=== PATIENT | female | born 1960 | race Caucasian/White ===

== ENCOUNTER 2020-12-12 07:23 | Outpatient (REF) | payer OTHER, SELFPAY ==
[2020-12-12 11:17] LABS: MANUAL DIFF FLAG NO
[2020-12-12 11:21] LABS: Basophils Percent Auto 0.3 % (0-2); Eosinophils Absolute Auto 0.1 X10*3/uL (0.0-0.4); Eosinophils Percent Auto 1.2 % (0-4); Hematocrit 32.5 % (37-47); Hemoglobin 8.7 g/dl (12.0-16.0); Imm Gran Abs Auto 0.02 X10*3/uL (0.00-0.03); Imm Gran Pct Auto 0.3 % (0.0-0.4); Lymphocytes Absolute Auto 2.4 X10*3/uL (1.2-4.9); Lymphocytes Percent Auto 33.3 % (20-40); Mean Corpuscular HGB Conc 26.8 g/dl (31.0-35.0); Mean Corpuscular Hemoglobin 19.2 pg (27.0-33.0); Mean Corpuscular Volume 71.9 fL (80-98); Mean Platelet Volume 9.5 fL (9.4-12.3); Monocytes Absolute Auto 0.7 X10*3/uL (0.1-1.2); Monocytes Percent Auto 9.6 % (2-11); Neutrophils Percent Auto 55.3 % (45-73); Platelet Count 357 X10*3/uL (160-400); Red Blood Count 4.52 X10*6/uL (4.20-5.50); Red Cell Distribution Width 19.5 % (11.0-16.0); White Blood Count 7.3 X10*3/uL (4.8-10.8)
[2020-12-12 11:39] LABS: Alanine Aminotransferase 13 U/L (0-31); Aspartate Amino Transferase 19 U/L (5-31); Cholesterol 189 mg/dL; HDL Cholesterol 54 mg/dL; Iron 13 mcg/dL (30-160); LDL Cholesterol Calculated 109 mg/dl; Triglycerides 131 mg/dL
[2020-12-12 11:55] LABS: Percent Iron Saturation 2 % (15-50); Total Iron Binding Capacity 553 mcg/dL (228-428); Unsaturated Iron Binding 540 ug/dL
[2020-12-12 12:01] LABS: Ferritin 11 ng/mL (10-250); Vitamin D 25-OH Total 28.7 ng/mL (>30)
== END 2020-12-12 07:24 | disposition home or self-care (01) ==
LOC: HO.HMGCLDS 07:23
PROVIDERS: PCP Internal Medicine; Visit Provider Internal Medicine
DX: I74.09 Other arterial embolism and thrombosis of abdominal aorta (principal); F10.10 Alcohol abuse, uncomplicated; D12.6 Benign neoplasm of colon, unspecified; K29.50 Unspecified chronic gastritis without bleeding; B96.81 Helicobacter pylori [H. pylori] as the cause of diseases classified elsewhere; M79.7 Fibromyalgia; I73.9 Peripheral vascular disease, unspecified; M81.0 Age-related osteoporosis without current pathological fracture; G25.81 Restless legs syndrome
CPT/HCPCS: 36415; 80061; 82306; 82728; 83540; 84450; 84460; 85025

== ENCOUNTER 2021-02-13 09:55 | Outpatient (REF) | payer OTHER, SELFPAY ==
--- NOTE | ~2021-02-13 | XR_ITS ---
EXAMINATION: 1. RADIOGRAPHS CHEST 2. RADIOGRAPHS RIGHT KNEE CLINICAL INFORMATION: Hemoptysis. Right knee pain after fall. COMPARISON: Chest x-ray February 28, 2019 and low-dose chest CT December 17, 2018 TECHNIQUE: 2 views of the chest and 4 views of the right knee were obtained. FINDINGS: CHEST: Cardiac silhouette is normal in size. Lungs are mildly hyperinflated consistent with emphysematous changes. No left lower lobe pulmonary nodule appears to demonstrate mild interval increase in size, today measuring 1.2 cm (previously 1 cm). There has also been interval development of irregularly shaped masslike opacity within the right lung apex which measures approximately 1.2 x 1.8 cm. No gross lobar consolidation identified. No pleural effusion or pneumothorax. Mild degenerative changes of the thoracic spine. Right knee: No fracture or dislocation. Tiny suprapatellar joint effusion. Mildly decreased medial joint space height. No focal soft tissue swelling of the anterior knee. Vascular calcifications noted. XR/XR chest 2V IMPRESSION: 1. Interval development of 1.8 cm irregularly-shaped masslike opacity within the right lung apex. In a setting of hemoptysis and known pulmonary nodules, this finding is concerning for a neoplastic process. This may also represent a localized infectious or inflammatory process. Further evaluation can be obtained with chest CT. 2. Mild degenerative changes of the right knee.
--- NOTE | ~2021-02-13 | XR_ITS ---
EXAMINATION: 1. RADIOGRAPHS CHEST 2. RADIOGRAPHS RIGHT KNEE CLINICAL INFORMATION: Hemoptysis. Right knee pain after fall. COMPARISON: Chest x-ray February 28, 2019 and low-dose chest CT December 17, 2018 TECHNIQUE: 2 views of the chest and 4 views of the right knee were obtained. FINDINGS: CHEST: Cardiac silhouette is normal in size. Lungs are mildly hyperinflated consistent with emphysematous changes. No left lower lobe pulmonary nodule appears to demonstrate mild interval increase in size, today measuring 1.2 cm (previously 1 cm). There has also been interval development of irregularly shaped masslike opacity within the right lung apex which measures approximately 1.2 x 1.8 cm. No gross lobar consolidation identified. No pleural effusion or pneumothorax. Mild degenerative changes of the thoracic spine. Right knee: No fracture or dislocation. Tiny suprapatellar joint effusion. Mildly decreased medial joint space height. No focal soft tissue swelling of the anterior knee. Vascular calcifications noted. XR/XR knee RT 4V IMPRESSION: 1. Interval development of 1.8 cm irregularly-shaped masslike opacity within the right lung apex. In a setting of hemoptysis and known pulmonary nodules, this finding is concerning for a neoplastic process. This may also represent a localized infectious or inflammatory process. Further evaluation can be obtained with chest CT. 2. Mild degenerative changes of the right knee.
== END 2021-02-13 09:56 | disposition home or self-care (01) ==
LOC: HO.HMGCX 09:55
PROVIDERS: PCP Internal Medicine; Visit Provider Physician Assistant Medical
DX: M25.461 Effusion, right knee (principal); R04.2 Hemoptysis; Z91.81 History of falling
CPT/HCPCS: 71046; 73564

== ENCOUNTER 2021-02-27 07:54 | Outpatient (REF) | payer OTHER, SELFPAY ==
[2021-02-27 11:29] LABS: MANUAL DIFF FLAG NO
[2021-02-27 11:51] LABS: Basophils Percent Auto 0.4 % (0-2); Eosinophils Absolute Auto 0.2 X10*3/uL (0.0-0.4); Hemoglobin 9.2 g/dl (12.0-16.0); Imm Gran Abs Auto 0.02 X10*3/uL (0.00-0.03); Imm Gran Pct Auto 0.3 % (0.0-0.4); Lymphocytes Absolute Auto 2.7 X10*3/uL (1.2-4.9); Lymphocytes Percent Auto 35.4 % (20-40); Mean Corpuscular HGB Conc 27.9 g/dl (31.0-35.0); Mean Corpuscular Hemoglobin 19.9 pg (27.0-33.0); Mean Corpuscular Volume 71.3 fL (80-98); Mean Platelet Volume 9.1 fL (9.4-12.3); Monocytes Absolute Auto 0.7 X10*3/uL (0.1-1.2); Neutrophils Percent Auto 52.9 % (45-73); Platelet Count 410 X10*3/uL (160-400); Red Blood Count 4.63 X10*6/uL (4.20-5.50); Red Cell Distribution Width 22.2 % (11.0-16.0); White Blood Count 7.6 X10*3/uL (4.8-10.8)
[2021-02-27 11:57] LABS: INTERNATIONAL NORM RATIO 0.9 (0.9-1.1); Prothrombin Time 10.3 SEC (9.9-13.0)
[2021-02-27 11:59] LABS: Anion Gap 14 (12-20); Blood Urea Nitrogen 10 mg/dL (9-16); Calcium 9.3 mg/dL (8.4-10.2); Carbon Dioxide 24 mmol/L (22-29); Chloride 105 mmol/L (96-108); Estimated Glomerular Filt Rate > 60; Glucose Random 91 mg/dL (60-115); Potassium 4.7 mmol/L (3.3-5.1); Sodium 138 mmol/L (135-145)
[2021-02-27 12:01] LABS: D Dimer 490 NG/ML
[2021-02-27 12:09] LABS: B Type Natriuretic Peptide 86 pg/mL (<100)
== END 2021-02-27 07:55 | disposition home or self-care (01) ==
LOC: HO.HMGCLDS 07:54
PROVIDERS: PCP Internal Medicine; Visit Provider Physician Assistant Medical
DX: R04.2 Hemoptysis (principal)
CPT/HCPCS: 36415; 80048; 83880; 85025; 85379; 85610

== ENCOUNTER 2021-03-01 | Outpatient (REF) | payer OTHER, SELFPAY | END 2021-03-01 00:01 | disposition home or self-care (01) | LOC: HO.HMGCLNP | PROVIDERS: Visit Provider Physician Assistant Medical | DX: R04.2 Hemoptysis (principal) | CPT/HCPCS: 87070; 87185; 87205 ==

== ENCOUNTER 2021-03-02 09:22 | Outpatient (REF) | payer OTHER, SELFPAY ==
--- NOTE | ~2021-03-02 | CT_ITS ---
EXAMINATION: CT CHEST WITHOUT CONTRAST CLINICAL INFORMATION: Hemoptysis COMPARISON: Previous chest x-ray most recent 02/23/[address] December 2018 TECHNIQUE: Multidetector volumetric CT imaging of the chest was done. Axial MIP volume rendering provided. Sagittal and coronal reformatted images were obtained. This CT examination was performed using dose optimization techniques as appropriate, variously including the following: *Automated exposure control *Adjustment of mA and/or kV according to patient size (this includes techniques or standardized protocols for targeted exams where dose is matched to indication/reason for exam; i.e. extremities or head) *Use of iterative reconstruction technique DLP: 145 mGy-cm FINDINGS: LUNGS: There is evidence of severe emphysema. There is a new irregular triangular shaped lesion in the right upper lobe with several spicules. This is low in attenuation and has central calcified. This measures 1.5 x 3.5 cm in AP and transverse dimension. There are spicules that extends to the lateral right lung apex and there is adjacent thickening. This lesion is new from 2018 exam. There is a new 5 mm groundglass attenuation right lower lobe nodule axial image 335 series 4. There is more ill-defined peribronchial increased attenuation in the lingula for example axial image 301 series 4. There is a 5 mm irregularly-shaped left upper lobe nodule axial image 227 series 4 that is new. There is a 9 x 10 mm left lower lobe nodule axial image 311 series 4 that is stable. There is a 4 mm right lower lobe nodule axial image 240 series 4. There is a 4 mm left upper lobe nodule axial image 251 series 4. There is a 3 mm peripheral or subpleural left lower lobe nodule adjacent to the fissure axial image 321 series 4. There is a 4 mm peripheral or subpleural left lower lobe nodule axial image 361 series 4. There is a 1.1 x 1.9 cm peripheral or subpleural left lower lobe nodule adjacent to the lower thoracic spine axial image 397 series 4. On sagittal and coronal reconstructed images this may represent atelectasis. There is a 3 mm calcified right upper lobe nodule axial image 113 series 4. These nodules are similar to most recent exam December 2018. MEDIASTINUM: The heart does not appear enlarged. There is moderate coronary artery calcification. There is no pericardial effusion. There are small mediastinal lymph nodes. The thoracic aorta is normal in caliber. PLEURA: There is no pleural effusion. No pleural mass or thickening. AXILLA: No lymphadenopathy. UPPER ABDOMEN: There are vascular calcifications seen in the abdomen. There is a 4 mm calcification in the upper pole of the left kidney questionable for vascular calcification versus stone. OSSEOUS STRUCTURES: There is increased thoracic kyphosis. There is an L3 to [place] body compression fracture and probable Schmorl's node that appears new. CT/CT chest wo con IMPRESSION: Emphysema. New irregularly-shaped partially calcified lesion in the right upper lobe with central calcifications measuring 1.5 x 3.5 cm. There is a new 5 mm groundglass attenuation right lower lobe nodule.. Previously identified pulmonary nodules are otherwise stable, largest measuring 1 x 1.1 cm and 1.1 x 1.9 cm in the left lower lobe. Coronary artery calcification. New L3 vertebral body compression fracture.
== END 2021-03-02 09:23 | disposition home or self-care (01) ==
LOC: HO.CT 09:22
PROVIDERS: PCP Internal Medicine; Visit Provider Surgery
DX: R04.2 Hemoptysis (principal); F17.200 Nicotine dependence, unspecified, uncomplicated
CPT/HCPCS: 71250

== ENCOUNTER → 2021-03-12 10:34 | Outpatient (BNVA) | payer OTHER, SELFPAY | PROVIDERS: PCP Internal Medicine; Visit Provider Surgery | DX: R91.8 Other nonspecific abnormal finding of lung field (principal); R04.2 Hemoptysis; J43.9 Emphysema, unspecified; F17.210 Nicotine dependence, cigarettes, uncomplicated; Z79.899 Other long term (current) drug therapy; Z71.6 Tobacco abuse counseling | CPT/HCPCS: 99212 ==

== ENCOUNTER 2021-04-06 11:25 | Outpatient (REF) | payer OTHER, SELFPAY ==
--- NOTE | ~2021-04-06 | PE_ITS ---
EXAMINATION: Fluorine-18 FDG PET/CT Scan CLINICAL INDICATION: Initial treatment management. Pulmonary nodules. PROCEDURE: 59 minutes following the intravenous administration of 17.3 mCi of fluorine 18 FDG, images from the base of the skull to the mid thighs were obtained using a combined PET/CT scanner with CT scan based attenuation correction. No oral contrast was administered. No intravenous contrast was administered. Transverse, coronal, sagittal, and volume reconstruction projections were obtained. The patient's blood glucose as determined by a finger stick, was 106 mg/dl immediately prior to injection. Total CT exam dose-length product 248.61 mGy-cm * These CT images were obtained using dose optimization techniques as appropriate, variously including the following: Automated exposure control * Adjustment of mA and/or kV according to patient size (this includes techniques or standardized protocols for targeted exams where dose is matched to indication/reason for exam; i.e. extremities or head) * Use of iterative reconstruction technique COMPARISON: No previous PET/CT scan is available for comparison. CT scan of the chest dated 03/02/2021 is available for comparison. FINDINGS: (Slice numbers described in this report are numbered superiorly to inferiorly with slice #1 in the head) NECK AND VISUALIZED HEAD: There are several foci of increased FDG activity in the left cervical region which appear to be in the soft tissues with no corresponding CT abnormalities that may represent some physiological muscular uptake. There is an additional mild focus of FDG activity anterior to the right trapezius muscle that also shows no corresponding CT abnormality. There is no definite cervical lymphadenopathy. No other foci of abnormal FDG activity are suggested in the neck or visualized head. THORAX: An FDG avid right upper lobe pulmonary nodule is noted, SUVmax 3.5, slice 45/223. This corresponds to a spiculated very irregular nodule on the CT images it measures approximately 2.3 x 1.4 cm with linear spiculation extending posteromedially several additional centimeters. It is unchanged from the diagnostic CT dated 03/02/2021. Fine spiculations also extend laterally and anterolaterally to the right upper lobe pleura. No additional foci of abnormal FDG activity are present in the lungs. There is a 1.1 x 0.7 cm posterior left lower lobe nodule, slice 78/223 with no associated abnormal FDG activity. No definite additional pulmonary nodules are visualized. Multiple additional subcentimeter nodules visualized on the [address] scan are not apparent on these nondiagnostic CT images. No additional foci of abnormal FDG activity are present in the chest. There is no mediastinal, supraclavicular, or axillary lymphadenopathy. ABDOMEN AND PELVIS: No foci of abnormal FDG activity are present in the abdomen and or pelvis. There is FDG activity of varying intensities present throughout the gastrointestinal tract, most intensely in the right colon and rectosigmoid colon, but without corresponding CT abnormalities and likely physiological. There is diffuse diverticulosis without evidence of diverticulitis. The hollow viscera are otherwise unremarkable. The liver, gallbladder, and spleen are unremarkable. There is a densely calcified 0.5 cm calculus in the upper pole of the right kidney. The kidneys are otherwise unremarkable. The adrenal glands and pancreas are unremarkable. There is no retroperitoneal, mesenteric, pelvic or inguinal lymphadenopathy. The pelvic organs are unremarkable. MUSCULOSKELETAL: No foci of abnormal FDG activity are present in the osseous structures. There are mild degenerative changes in the spine and there is compression deformity in the superior endplate of L4 with no associated abnormal FDG activity. VASCULAR: Diffuse vascular calcifications including coronary. PET/PET CT fusion skull to thigh IMPRESSION: 1. An FDG avid right upper lobe pulmonary nodule is most likely malignant. Biopsy is recommended if clinically indicated. 2. An additional left lower lobe 1.1 x 0.7 cm pulmonary nodule does not show abnormal FDG activity suggesting a benign etiology, but this is at the lower limits of resolution on the FDG PET images. 3. Multiple additional small subcentimeter pulmonary nodules visualized on the 03/02/2021 CT scan are not visualized on these nondiagnostic CT images, but all of these are too small to be characterized on the FDG PET images. 4. Several FDG avid soft tissue foci in the cervical region, most prominently on the left are noted as described above. These show no corresponding CT abnormalities and may be due to physiological muscular uptake but significant malignant or inflammatory foci at these sites cannot be ruled out. These foci could be further characterized with MRI of the neck performed without and with intravenous contrast. 5. No additional abnormalities suspicious for other metastatic or malignant lesions are noted. 6. Diffuse vascular calcifications including coronary.
== END 2021-04-06 11:26 | disposition home or self-care (01) ==
LOC: HO.PET 11:25
PROVIDERS: PCP Internal Medicine; Visit Provider Surgery
DX: Z13.89 Encounter for screening for other disorder (principal)

== ENCOUNTER → 2021-04-09 09:57 | Outpatient (BNVA) | payer OTHER, SELFPAY | PROVIDERS: PCP Internal Medicine; Visit Provider Surgery | DX: R91.8 Other nonspecific abnormal finding of lung field (principal); F17.210 Nicotine dependence, cigarettes, uncomplicated; Z79.899 Other long term (current) drug therapy; R04.2 Hemoptysis | CPT/HCPCS: 99212 ==

== ENCOUNTER 2021-04-29 11:01 | Day surgery (SDC) | payer OTHER, SELFPAY ==
[2021-04-29] VITALS (9 sets, daily range): BP systolic 105–167; BP diastolic 51–77; PULSE 71–92; RESP 16–20; TEMP 36.4; O2SAT 95–98; BMI 17.7
--- NOTE | ~2021-04-29 | CT_ITS ---
PROCEDURE: CT GUIDED BIOPSY LUNG, RIGHT CLINICAL INFORMATION: PET positive right upper lobe spiculated mass. COMPARISON: 04/06/2021 and 03/02/2021 TECHNIQUE: CT fluoroscopic-guided biopsy right upper lobe. This CT examination was performed using dose optimization techniques as appropriate, variously including the following: *Automated exposure control *Adjustment of mA and/or kV according to patient size (this includes techniques or standardized protocols for targeted exams where dose is matched to indication/reason for exam; i.e. extremities or head) *Use of iterative reconstruction technique DLP: 72 mGy-cm FINDINGS: Informed consent was obtained from the patient prior to the procedure. During this process, the procedure and potential alternatives were explained, along with the intended outcome and benefits. The risks of the procedure, as well as the risk of not doing the procedure, were discussed. The patient was given the opportunity to ask questions regarding the procedure and appeared competent to make medical decisions. A signed consent form which documents this discussion was placed in the medical record. There is noted to be severe emphysematous change throughout both lungs. Using sterile technique and CT fluoroscopic guidance, from an anterior approach, a coaxial needle was placed into the mass, and two 18-gauge core biopsies obtained. No immediate postprocedure pneumothorax is present. Preliminary cytology was of an adequate specimen. CT/CT biopsy lung RT IMPRESSION: Successful right upper lobe core biopsy with no immediate postprocedure pneumothorax.
[2021-04-29 11:17] LABS: MANUAL DIFF FLAG NO
[2021-04-29 11:21] LABS: Basophils Percent Auto 0.4 % (0-2); Eosinophils Absolute Auto 0.1 X10*3/uL (0.0-0.4); Eosinophils Percent Auto 0.7 % (0-4); Hematocrit 29.9 % (37-47); Hemoglobin 8.4 g/dl (12.0-16.0); Imm Gran Abs Auto 0.03 X10*3/uL (0.00-0.03); Imm Gran Pct Auto 0.4 % (0.0-0.4); Lymphocytes Absolute Auto 1.9 X10*3/uL (1.2-4.9); Lymphocytes Percent Auto 26.3 % (20-40); Mean Corpuscular HGB Conc 28.1 g/dl (31.0-35.0); Mean Corpuscular Hemoglobin 19.1 pg (27.0-33.0); Mean Platelet Volume 8.6 fL (9.4-12.3); Monocytes Absolute Auto 0.6 X10*3/uL (0.1-1.2); Monocytes Percent Auto 7.7 % (2-11); Neutrophils Absolute Auto 4.7 X10*3/uL (2.0-8.3); Neutrophils Percent Auto 64.5 % (45-73); Platelet Count 306 X10*3/uL (160-400); White Blood Count 7.3 X10*3/uL (4.8-10.8)
[2021-04-29 11:27] LABS: Prothrombin Time 11.4 SEC (9.9-13.0)
[2021-04-29 11:30] LABS: Partial Thromboplastin Time 32.4 SEC (24.1-38.0)
== END 2021-04-29 17:40 | disposition home or self-care (01) ==
LOC: HO.SSS 11:02
PROVIDERS: Radiology Diagnostic Radiology; PCP Internal Medicine; Visit Provider Radiology Diagnostic Radiology
DX: J84.10 Pulmonary fibrosis, unspecified (principal)
CPT/HCPCS: 32408; 36415; 71045; 85025; 85610; 85730; 88305; 88333; 99152; 99153; C1729; J2250; J3010

== ENCOUNTER → 2021-05-21 09:59 | Outpatient (BNVA) | payer OTHER, SELFPAY | PROVIDERS: PCP Internal Medicine; Visit Provider Surgery | DX: J43.9 Emphysema, unspecified (principal); R91.8 Other nonspecific abnormal finding of lung field; F17.210 Nicotine dependence, cigarettes, uncomplicated; Z79.899 Other long term (current) drug therapy; Z71.6 Tobacco abuse counseling | CPT/HCPCS: 99212 ==

== ENCOUNTER 2021-05-25 08:36 | Outpatient (REF) | payer OTHER, SELFPAY ==
--- NOTE | ~2021-05-25 | MR_ITS ---
EXAMINATION: MRI NECK WITHOUT AND WITH CONTRAST CLINICAL INFORMATION: Other nonspecific abnormal finding of the lung fu. COMPARISON: Head CT 04/06/2021. TECHNIQUE: The planar multisequence MRI of the neck was performed without and with contrast. A total 4.5 mL Gadavist was intravenously administered. The diffusion sequence is nondiagnostic. FINDINGS: The pharyngeal contours appear normal. The tonsils and base of tongue appear normal and symmetric. No laryngeal lesion is seen. The parotid and submandibular glands appear normal. No enlarged or suspicious appearing cervical lymph nodes are seen. No abnormal enhancement is seen. The imaged intracranial contents appear normal. The major arterial flow voids are preserved at the skull base. No significant paranasal sinus or mastoid opacification is seen. Degenerative changes are present in the spine. No vertebral body height loss is noted. The known right apical lung lesion is better defined on the prior chest CT. MR/MR orbits face neck wo/w con IMPRESSION: No suspicious abnormality is identified within the neck. No evidence of neck mass or lymphadenopathy.
== END 2021-05-25 08:37 | disposition home or self-care (01) ==
LOC: HO.MRI 08:36
PROVIDERS: Visit Provider Surgery
DX: R91.8 Other nonspecific abnormal finding of lung field (principal); R93.89 Abnormal findings on diagnostic imaging of other specified body structures
CPT/HCPCS: 70543; A9585

== ENCOUNTER 2021-07-16 13:42 | Outpatient (REF) | payer OTHER, SELFPAY ==
--- NOTE | ~2021-07-16 | XR_ITS ---
EXAMINATION: XR TIBIA AND FIBULA, RIGHT CLINICAL INFORMATION: S80.11XA - Contusion of right lower leg, initial encounter COMPARISON: None TECHNIQUE: AP and lateral views of the right tibia and fibula were obtained. FINDINGS: There is no visible fracture or periostitis or destructive process. Hoffa's fat pad appears normal. There is no gas tracking in the soft tissue planes. XR/XR tibia fibula RT 2V IMPRESSION: No fracture or, dislocation, or destructive process.
== END 2021-07-16 13:43 | disposition home or self-care (01) ==
LOC: HO.HMGCX 13:42
PROVIDERS: PCP Internal Medicine; Visit Provider Internal Medicine
DX: S80.11XA Contusion of right lower leg, initial encounter (principal); X58.XXXA Exposure to other specified factors, initial encounter; Y93.9 Activity, unspecified; Y92.9 Unspecified place or not applicable; Y99.9 Unspecified external cause status
CPT/HCPCS: 73590

== ENCOUNTER 2021-07-19 10:03 | Inpatient (IN) | payer OTHER, SELFPAY ==
[2021-07-19] VITALS (12 sets, daily range): BP systolic 123–180; BP diastolic 47–91; PULSE 74–103; RESP 16–95; TEMP 36.6–37.2; O2SAT 97–98; BMI 17.9
--- NOTE | ~2021-07-19 | CT_ITS ---
EXAMINATION: CT HEAD WITHOUT CONTRAST CLINICAL INFORMATION: Right arm numbness COMPARISON: None TECHNIQUE: Contiguous axial imaging was performed from the skull base to vertex without intravenous administration of contrast. Additional 2-D coronal and sagittal reformatted images are generated on the CT workstation and uploaded to PACS. This CT examination was performed using dose optimization techniques as appropriate, variously including the following: *Automated exposure control *Adjustment of mA and/or kV according to patient size (this includes techniques or standardized protocols for targeted exams where dose is matched to indication/reason for exam; i.e. extremities or head) *Use of iterative reconstruction technique DLP: 492 mGy-cm FINDINGS: There is no intracranial hemorrhage, hematoma, or extra-axial fluid collection. The ventricles are normal in size. There is no hydrocephalus, edema, or mass effect. The tolliver-white matter differentiation appears well preserved . There are mild atrophic changes with accentuation of the cortical sulci and fissures. Incidental mild mineralization is present in the choroid plexus invasive lateral ventricles and choroid fissures. There is no visible acute territorial infarct or mass lesion. The calvarium appears intact. There is no pneumocephalus or orbital emphysema. The visualized sinuses and middle ears and mastoid air cells show no significant mucosal thickening. There are no air-fluid levels. CT/CT head/brain wo con IMPRESSION: No acute intracranial abnormality.
--- NOTE | ~2021-07-19 | XR_ITS ---
EXAMINATION: XR CHEST CLINICAL INFORMATION: Chest pain. COMPARISON: CT chest 03/02/2021 TECHNIQUE: Frontal view of the chest was obtained. FINDINGS: Hyperinflated lungs without acute process. The there is a right upper lobe patchy density suggestive of a large scar seen on CT chest 03/02/2021. There is mild 8 apical pleural thickening Heart size and pulmonary vascularity is normal. No gross bony abnormality. XR/XR chest 1V IMPRESSION: Right upper lobe thick scar/mass seen on CT chest exam 03/02/2021. This area has been biopsied previously 05/03/2021 No acute process.
--- NOTE | 2021-07-19 10:19 | ECG_ITS ---
Test Reason : SHORTNESS OF BREATH Blood Pressure : / mmHG Vent. Rate : 081 BPM Atrial Rate : 081 BPM P-R Int : 106 ms QRS Dur : 068 ms QT Int : 350 ms P-R-T Axes : 081 068 077 degrees QTc Int : 406 ms Sinus rhythm with short HI Nonspecific ST abnormality Abnormal ECG When compared with ECG of 28-FEB-2019 16:13, No significant change was found Referred By: Emeterio Bucio Electronically Signed By:Harry Estrada
--- NOTE | 2021-07-19 10:22 | ED_ITS ---
HPI - SOB/Dyspnea General Chief Complaint: Dyspnea Stated Complaint: r arm numbness/ lower leg edema Time Seen by Provider: 07/19/21 10:19 Source: patient Mode of arrival: ambulatory Limitations: no limitations History of Present Illness HPI Narrative: 61 yo called 911 because SOB ,she has hx of COPD 02 dept still s mo,she was given neb by EMS now better,she sates that she runned out on inhaler,she also had transient episode of rt arm numbnesss now resolved MD elicited complaint: shortness of breath Pertinent past history: COPD Onset (ago): hour(s) (2) Timing: improved Severity: moderate Exacerbating factors: nothing Relieving factors: medication (neb) Known history of: COPD Treatment prior to arrival: bronchodilator (by EMS) Related Data Home Medications Medication Instructions Recorded Confirmed clopidogrel 75 mg tablet 75 mg PO DAILY 11/03/20 05/21/21 Previous Rx's Medication Instructions Recorded aspirin 81 mg chewable tablet 1 tab PO DAILY #30 tab 06/22/20 albuterol sulfate 90 mcg/actuation 1 - 2 puff INHALATION Q4-6H PRN 11/13/20 aerosol inhaler #8.5 g cholecalciferol (vitamin D3) 125 125 mcg PO DAILY #30 cap 12/14/20 mcg (5,000 unit) capsule lisinopril 10 mg tablet 5 mg PO DAILY #15 tab 12/16/20 amlodipine 10 mg tablet 10 mg PO QPM #90 tab 02/04/21 ferrous fumarate 324 mg (106 mg 324 mg PO DAILY #30 tab 03/03/21 iron) tablet (Ferrocite) triamcinolone acetonide 0.025 % 1 appl TOPICAL DAILY 10 Days #15 g 03/31/21 topical cream lorazepam 1 mg tablet (Ativan) 1 mg PO ONCE PRN #1 tab 04/09/21 ibuprofen 600 mg tablet 600 mg PO DAILY PRN #20 tab 04/27/21 ropinirole 0.5 mg tablet 0.5 mg PO DAILY #30 tab 05/06/21 budesonide-formoterol HFA 160 2 puff PO BID 30 Days #10.2 g 05/27/21 mcg-4.5 mcg/actuation aerosol inhaler (Symbicort) naproxen 500 mg tablet 500 mg PO BID #20 tab 07/05/21 Allergies Allergy/AdvReac Type Severity Reaction Status Date / Time acetaminophen [From Tylenol] Allergy Mild Nausea Verified 07/16/21 13:19 Review of Systems Review of Systems: Yes all other systems are reviewed and are negative Constitutional: Constitutional: Denies chills, Denies fever(s) and Denies headache(s) ENT: Reports system reviewed and no additional complaints, except as documented and Denies headache(s) Cardiovascular: Cardiovascular: Denies chest pain, Denies chest pain at rest, Denies chest pain with activity and Reports dyspnea Respiratory: Respiratory: Reports dyspnea Gastrointestinal: Gastrointestinal: Reports no additional gastrointestinal complaints Neurologic: Reports as per HPI (rt arm numbness now resolved,no weakness) and Denies headache(s) [facility] Past Medical History Medical History Anemia Aortoiliac occlusive disease Chronic Helicobacter pylori gastritis Colonoscopy refused COPD (chronic obstructive pulmonary disease) Fibromyalgia History of alcohol abuse Mammogram declined Myopia of both eyes Osteoporosis Papanicolaou smear declined Peripheral vascular disease Restless leg syndrome Smoker unmotivated to quit Tubular adenoma of colon Vaccination declined by patient Surgical History History of ankle surgery (~11/2011) History of appendectomy History of endarterectomy (~05/2020) History of exploratory thoracotomy (~04/2018) History of lung biopsy (~04/2021) History of myringotomy History of tonsillectomy History of tubal ligation Family History Family History Father Substance use disorder Mother Substance use disorder Brother Substance use disorder Sister Substance use disorder Sister Substance use disorder Brother Substance use disorder Social History Social History Housing: Other Housing Other:: mobile home Alcohol intake: former Patient Tobacco Use Status: Current everyday Tobacco user Cigarettes Per Day: 10 e-Cigarette/Vaping Use: Never Used Use of substances other than those prescribed or required for medical reasons: No Advance Directives: Yes Advance Directives on File: Yes Advance Directives Date on File: 07/19/21 service: No Current occupational status: disabled Current occupational exposures/hazards: No Physical Exam Vital Signs: Vital Signs: Last Vital Signs Temp 97.9 F 07/19/21 10:35 Pulse 81 07/19/21 10:35 Resp 16 07/19/21 10:35 BP 153/56 H 07/19/21 10:35 Pulse Ox 98 07/19/21 10:35 BMI result Body Mass Index 17.9 Const: General: cooperative, comfortable, no acute distress, well developed and alert Nutritional Appearance: average body habitus Limitations: no limitations HENMT: Face and sinus: Yes normal facial exam Mouth: Normal oral and palatal mucosa present Neck: Neck: Yes normal visual inspection, Yes full ROM and Yes no lymphadenop athy Chest: Chest palpation & inspection: normal inspection of the chest Resp: Auscultation: rhonchi Cardio: Jugular venous distension: no JVD Rate: regular rate Rhythm: regular rhythm GI: Inspection: Yes normal to inspection Palpation (GI): Soft to palpation, not firm, nontender and no guarding Percussion: Yes normal to percussion Rectal Exam - Female: normal sphincter tone and other (Stools brown heme negative stools) Skin: General skin exam: no rashes or lesions noted and elasticity normal Course Reevaluation(s) Reevaluation #1: blood transfusion ordered ,spoke with Hospitalist MDM - SOB/Dyspnea MDM Narrative Medical decision making narrative: pp presented with severe anemia heme negative stools ,she is actually hypertensive ,most likely chronic anemia low MCV/MCH/MCHC .Will admit and trasfuse Lab Data Result diagrams: 07/19/21 10:57 07/19/21 10:57 Labs: Lab Results 07/19/21 07/19/21 07/19/21 Range/Units 10:57 10:57 10:57 WBC 8.1 (4.8-10.8) X10*3/uL RBC 2.87 L (4.20-5.50) X10*6/uL Hgb 4.8 L* (12.0-16.0) g/dl Hct 18.6 L* (37.0-47.0) % MCV 64.8 L (80.0-98.0) fL MCH 16.7 L (27.0-33.0) pg MCHC 25.8 L (31.0-35.0) g/dl RDW 20.1 H (11.0-16.0) % Plt Count 322 (160-400) X10*3/uL MPV 9.5 (9.4-12.3) fL Immature Gran % (Auto) 0.4 (0.0-0.4) % Neut % (Auto) 68.2 (45-73) % Lymph % (Auto) 21.6 (20-40) % [place] % (Auto) 7.7 (2-11) % Eos % (Auto) 1.7 (0-4) % Baso % (Auto) 0.4 (0-2) % Lymph # (Auto) 1.8 (1.2-4.9) X10*3/uL [place] # (Auto) 0.6 (0.1-1.2) X10*3/uL Eos # (Auto) 0.1 (0.0-0.4) X10*3/uL Baso # (Auto) 0.0 (0.0-0.2) X10*3/uL Abs Immat Gran (auto) 0.03 (0.00-0.03) X10*3/uL Absolute Neuts (auto) 5.5 (2.0-8.3) x10*3/uL Absolute Nucleated RBC 0.000 (0.0-0.012) X10*3/uL Nucleated RBC % (auto) 0.0 (0.0-0.2) /100WBC PT 11.0 (9.9-13.0) SEC INR 1.0 (0.9-1.1) Sodium 137 (135-145) mmol/L Potassium 4.7 (3.3-5.1) mmol/L Chloride 108 (96-108) mmol/L Carbon Dioxide 20 L (22-29) mmol/L Anion Gap 14 (12-20) BUN 11 (9-16) mg/dL Creatinine 0.61 (0.5-1.4) mg/dL Estim Creat Clear Calc 67.4 Estimated GFR > 60 Random Glucose 97 (60-115) mg/dL Calcium 9.1 (8.4-10.2) mg/dL Total Bilirubin 0.3 (0.0-1.0) mg/dL AST 13 (5-31) U/L ALT 10 (0-31) U/L Alkaline Phosphatase 105 (39-117) U/L Troponin I High Sens (<3.5-17.0) ng/L B-Natriuretic Peptide (<100) pg/mL Total Protein 6.3 L (6.5-8.0) g/dL Albumin 3.9 (3.5-5.0) g/dL Stool Occult Blood (NEGATIVE) 07/19/21 07/19/21 07/19/21 Range/Units 10:57 10:57 11:23 WBC (4.8-10.8) X10*3/uL RBC (4.20-5.50) X10*6/uL Hgb (12.0-16.0) g/dl Hct (37.0-47.0) % MCV (80.0-98.0) fL MCH (27.0-33.0) pg MCHC (31.0-35.0) g/dl RDW (11.0-16.0) % Plt Count (160-400) X10*3/uL MPV (9.4-12.3) fL Immature Gran % (Auto) (0.0-0.4) % Neut % (Auto) (45-73) % Lymph % (Auto) (20-40) % [place] % (Auto) (2-11) % Eos % (Auto) (0-4) % Baso % (Auto) (0-2) % Lymph # (Auto) (1.2-4.9) X10*3/uL [place] # (Auto) (0.1-1.2) X10*3/uL Eos # (Auto) (0.0-0.4) X10*3/uL Baso # (Auto) (0.0-0.2) X10*3/uL Abs Immat Gran (auto) (0.00-0.03) X10*3/uL Absolute Neuts (auto) (2.0-8.3) x10*3/uL Absolute Nucleated RBC (0.0-0.012) X10*3/uL Nucleated RBC % (auto) (0.0-0.2) /100WBC PT (9.9-13.0) SEC INR (0.9-1.1) Sodium (135-145) mmol/L Potassium (3.3-5.1) mmol/L Chloride (96-108) mmol/L Carbon Dioxide (22-29) mmol/L Anion Gap (12-20) BUN (9-16) mg/dL Creatinine (0.5-1.4) mg/dL Estim Creat Clear Calc Estimated GFR Random Glucose (60-115) mg/dL Calcium (8.4-10.2) mg/dL Total Bilirubin (0.0-1.0) mg/dL AST (5-31) U/L ALT (0-31) U/L Alkaline Phosphatase (39-117) U/L Troponin I High Sens 5.1 (<3.5-17.0) ng/L B-Natriuretic Peptide 277 H (<100) pg/mL Total Protein (6.5-8.0) g/dL Albumin (3.5-5.0) g/dL Stool Occult Blood NEGATIVE (NEGATIVE) ECG Data ECG interpretation date: 07/19/21 ECG interpretation time: 10:34 Pacemaker model: NSR [address] t segment isoelectric Critical Care Time Critical Care Time Critical Care Time: Yes Total Critical Care Time: 60 Attestation: Blood trasfusion X 2 for severe anemia,speaking with ALS,taking care of pt Discharge Plan Discharge Clinical Impression: Severe anemia, Shortness of breath Prescriptions: No Action aspirin 81 mg tablet,chewable 1 tab PO DAILY Qty: 30 RF: 6 albuterol sulfate 90 mcg/actuation HFA aerosol inhaler 1 - 2 puff inhalation Q4-6H PRN (Reason: dyspnea) Qty: 8.5 RF: 2 cholecalciferol (vitamin D3) 125 mcg (5,000 unit) capsule 125 mcg PO DAILY Qty: 30 RF: 4 lisinopril 10 mg tablet 5 mg PO DAILY Qty: 15 RF: 5 amlodipine 10 mg tablet 10 mg PO QPM Qty: 90 RF: 3 ferrous fumarate [Ferrocite] 324 mg (106 mg iron) tablet 324 mg PO DAILY Qty: 30 RF: 1 ibuprofen 600 mg tablet 600 mg PO DAILY PRN (Reason: migraine headache) Qty: 20 RF: 0 ropinirole 0.5 mg tablet 0.5 mg PO DAILY Qty: 30 RF: 3 budesonide-formoterol [Symbicort] 160-4.5 mcg/actuation HFA aerosol inhaler 2 puff PO BID 30 Days Qty: 10.2 RF: 2 clopidogrel 75 mg tablet 75 mg PO DAILY RF: 0 triamcinolone acetonide 0.025 % cream 1 appl topical DAILY 10 Days Qty: 15 RF: 0 naproxen 500 mg tablet 500 mg PO BID Qty: 20 RF: 0 lorazepam [Ativan] 1 mg tablet 1 mg PO ONCE PRN (Reason: anxiety) Qty: 1 RF: 0
[2021-07-19 11:03] LABS: MANUAL DIFF FLAG NO
[2021-07-19 11:04] LABS: Basophils Percent Auto 0.4 % (0-2); Eosinophils Absolute Auto 0.1 X10*3/uL (0.0-0.4); Eosinophils Percent Auto 1.7 % (0-4); Imm Gran Abs Auto 0.03 X10*3/uL (0.00-0.03); Imm Gran Pct Auto 0.4 % (0.0-0.4); Lymphocytes Absolute Auto 1.8 X10*3/uL (1.2-4.9); Lymphocytes Percent Auto 21.6 % (20-40); Mean Corpuscular HGB Conc 25.8 g/dl (31.0-35.0); Mean Corpuscular Hemoglobin 16.7 pg (27.0-33.0); Mean Platelet Volume 9.5 fL (9.4-12.3); Monocytes Absolute Auto 0.6 X10*3/uL (0.1-1.2); Monocytes Percent Auto 7.7 % (2-11); Neutrophils Absolute Auto 5.5 x10*3/uL (2.0-8.3); Neutrophils Percent Auto 68.2 % (45-73); Platelet Count 322 X10*3/uL (160-400); Red Blood Count 2.87 X10*6/uL (4.20-5.50); Red Cell Distribution Width 20.1 % (11.0-16.0); White Blood Count 8.1 X10*3/uL (4.8-10.8)
[2021-07-19 11:06] LABS: Mean Corpuscular Volume 64.8 fL (80.0-98.0)
[2021-07-19 11:09] LABS: Hemoglobin 4.8 g/dl (12.0-16.0)
[2021-07-19 11:10] LABS: Hematocrit 18.6 % (37.0-47.0)
[2021-07-19] MEDS: methylPREDNISolone Sod Succ 125 MG/2 ML VIAL IVPUSH (11:13)
[2021-07-19 11:21] LABS: Alanine Aminotransferase 10 U/L (0-31); Albumin Level 3.9 g/dL (3.5-5.0); Alkaline Phosphatase 105 U/L (39-117); Anion Gap 14 (12-20); Aspartate Amino Transferase 13 U/L (5-31); Bilirubin Total 0.3 mg/dL (0.0-1.0); Blood Urea Nitrogen 11 mg/dL (9-16); Calcium 9.1 mg/dL (8.4-10.2); Carbon Dioxide 20 mmol/L (22-29); Chloride 108 mmol/L (96-108); Creatinine Clr Calc Pharmacy 67.4; Estimated Glomerular Filt Rate > 60; Glucose Random 97 mg/dL (60-115); Potassium 4.7 mmol/L (3.3-5.1); Sodium 137 mmol/L (135-145); Total Protein 6.3 g/dL (6.5-8.0)
[2021-07-19 11:27] LABS: B Type Natriuretic Peptide 277 pg/mL (<100); Troponin-I High Sensitivity 5.1 ng/L (<3.5-17.0)
[2021-07-19 11:29] LABS: OBS1 NEGATIVE (NEGATIVE)
[2021-07-19 11:30] LABS: OBS Int Ctl Valid YES
[2021-07-19 11:41] LABS: Influenza A PCR NEGATIVE (Negative); Influenza B PCR NEGATIVE (Negative); Resp Syncy Virus RNA Qual PCR NEGATIVE (Negative); SARS COV2 PCR INHOUSE NEGATIVE (Negative)
--- NOTE | 2021-07-19 11:48 | PC.NURSE ---
iv established, blood labs obtained and sent. provider at bedside to review h+H and potential for need for blood products. pt agreeable and consent is in chart.
--- NOTE | 2021-07-19 12:01 | PHA.MEDREC ---
Pharmacy Consult ? Medication Reconciliation Pharmacy has completed the medication reconciliation.
--- NOTE | 2021-07-19 12:11 | P.HPHOSP_ITS ---
History of Present Illness Date of Service: 07/19/21 61-year-old lady with peripheral vascular disease s/p aorta to iliac occlusive, s/p bypas in the past, , history of tubular adenoma of the colon removed on last colonoscopy, but subsequently refused follow up colonosocopy, COPD with active smoker. She called 911 this morning due to increasing shortness of breath. She run out of her inhalers about a week ago and has not been able to get refil. She is noted to be signficantly anemic with hemoglobin of 4.8, it was 8.4 last april and in April 2020 it 12. She denies melana or hematochezia, no coffee-ground emesis, she has been feeling very tired, taking freqquent naps, which is out of character for her. Review of Systems Review of Systems: Gen: no fever Resp: no sob, no cough CV: no chest, no [place], no leg edema GI: No n/v, no abd pain Neuro: No confusion Yes all other systems are reviewed and are negative [facility] Medical History Anemia Aortoiliac occlusive disease Chronic Helicobacter pylori gastritis Colonoscopy refused COPD (chronic obstructive pulmonary disease) Fibromyalgia History of alcohol abuse Mammogram declined Myopia of both eyes Osteoporosis Papanicolaou smear declined Peripheral vascular disease Restless leg syndrome Smoker unmotivated to quit Tubular adenoma of colon Vaccination declined by patient Family History Father Substance use disorder Mother Substance use disorder Brother Substance use disorder Sister Substance use disorder Sister Substance use disorder Brother Substance use disorder Surgical History History of ankle surgery (~11/2011) History of appendectomy History of endarterectomy (~05/2020) History of exploratory thoracotomy (~04/2018) History of lung biopsy (~04/2021) History of myringotomy History of tonsillectomy History of tubal ligation Social History Household Members: None Housing: House Housing Other:: mobile home Do you presently have visiting nurse or other home services: No Unable to assess alcohol history related to: Unknown Alcohol intake: former Patient Tobacco Use Status: Current everyday Tobacco user Cigarettes Per Day: 10 Smoked in Last 30 Days: Yes e-Cigarette/Vaping Use: Never Used Patient Interested in Nicotine Replacement: No Patient Given Instructions on How to Stop Smoking: No Second Hand Smoke Exposure: Yes Use of substances other than those prescribed or required for medical reasons: No Currently Displaying Signs/Symptoms of Drug Intoxication Withdrawal: No Any prior treatment program specific to substance use: No Have you been hit, kicked, punched, or otherwise hurt by someone within the past year? If so, by whom?: No Do you feel safe in your current relationship?: No Current Relationship Is there a partner from a previous relationship who is making you feel unsafe now?: No Are you made to feel afraid or neglected: No Advance Directives: Yes Advance Directives on File: Yes Advance Directives Date on File: 07/19/21 Do you have thoughts of harming others: None Do you have a plan to hurt others: No Plan Recently lost weight without trying: No Nutrition Risks: No Nutritional Risk service: No Current occupational status: disabled Current occupational exposures/hazards: No Meds Allergies Allergy/AdvReac Type Severity Reaction Status Date / Time acetaminophen [From Tylenol] Allergy Mild Nausea Verified 07/16/21 13:19 aspirin AdvReac Mild Vomiting Verified 07/20/21 01:15 Active Medications: Current Medications Pharmacy Consult (Consult Rx Perform Med Rec) 1 each MISCELLANE ONCE PRN PRN Reason: Consult order Home Medications Medication Instructions Recorded Confirmed Last Taken Type clopidogrel 75 mg tablet 75 mg PO DAILY 11/03/20 07/19/21 07/19/21 History Physical Exam Vital Signs and Narrative: Vital Signs: Last Vital Signs Temp 97.9 F 07/19/21 10:35 Pulse 81 07/19/21 10:35 Resp 16 07/19/21 10:35 BP 153/56 H 07/19/21 10:35 Pulse Ox 98 07/19/21 10:35 BMI result Body Mass Index 17.9 Results Labs CBC and Chem 7: 07/20/21 05:32 07/19/21 10:57 Labs: Laboratory Results - last 24 hr 07/19/21 07/19/21 07/19/21 10:57 10:57 10:57 MCV 64.8 L MCH 16.7 L MCHC 25.8 L RDW 20.1 H Plt Count 322 MPV 9.5 Immature Gran % (Auto) 0.4 Neut % (Auto) 68.2 Lymph % (Auto) 21.6 [place] % (Auto) 7.7 Eos % (Auto) 1.7 Baso % (Auto) 0.4 Lymph # (Auto) 1.8 [place] # (Auto) 0.6 Eos # (Auto) 0.1 Baso # (Auto) 0.0 Abs Immat Gran (auto) 0.03 Absolute Neuts (auto) 5.5 Absolute Nucleated RBC 0.000 Nucleated RBC % (auto) 0.0 PT 11.0 INR 1.0 Anion Gap 14 Estim Creat Clear Calc 67.4 Estimated GFR > 60 Random Glucose 97 Calcium 9.1 Total Bilirubin 0.3 AST 13 ALT 10 Alkaline Phosphatase 105 Troponin I High Sens B-Natriuretic Peptide Total Protein 6.3 L Albumin 3.9 Stool Occult Blood Influenza Type A (PCR) Influenza Type B (PCR) RSV RNA Qual (PCR) SARS-CoV-2 RNA (RT-PCR) 07/19/21 07/19/21 07/19/21 10:57 10:57 10:57 MCV MCH MCHC RDW Plt Count MPV Immature Gran % (Auto) Neut % (Auto) Lymph % (Auto) [place] % (Auto) Eos % (Auto) Baso % (Auto) Lymph # (Auto) [place] # (Auto) Eos # (Auto) Baso # (Auto) Abs Immat Gran (auto) Absolute Neuts (auto) Absolute Nucleated RBC Nucleated RBC % (auto) PT INR Anion Gap Estim Creat Clear Calc Estimated GFR Random Glucose Calcium Total Bilirubin AST ALT Alkaline Phosphatase Troponin I High Sens 5.1 B-Natriuretic Peptide 277 H Total Protein Albumin Stool Occult Blood Influenza Type A (PCR) NEGATIVE Influenza Type B (PCR) NEGATIVE RSV RNA Qual (PCR) NEGATIVE SARS-CoV-2 RNA (RT-PCR) NEGATIVE 07/19/21 11:23 MCV MCH MCHC RDW Plt Count MPV Immature Gran % (Auto) Neut % (Auto) Lymph % (Auto) [place] % (Auto) Eos % (Auto) Baso % (Auto) Lymph # (Auto) [place] # (Auto) Eos # (Auto) Baso # (Auto) Abs Immat Gran (auto) Absolute Neuts (auto) Absolute Nucleated RBC Nucleated RBC % (auto) PT INR Anion Gap Estim Creat Clear Calc Estimated GFR Random Glucose Calcium Total Bilirubin AST ALT Alkaline Phosphatase Troponin I High Sens B-Natriuretic Peptide Total Protein Albumin Stool Occult Blood NEGATIVE Influenza Type A (PCR) Influenza Type B (PCR) RSV RNA Qual (PCR) SARS-CoV-2 RNA (RT-PCR) Imaging Radiologist's Impressions: Impressions Chest X-Ray 07/19/21 11:10 IMPRESSION: Right upper lobe thick scar/mass seen on CT chest exam 03/02/2021. This area has been biopsied previously 05/03/2021 No acute process. Head CT 07/19/21 11:24 IMPRESSION: No acute intracranial abnormality. Assessment and Plan (1) Severe anemia: Status: Acute (2) Shortness of breath: Status: Acute (3) Colonoscopy refused: Status: Acute (4) Tubular adenoma of colon: Status: Acute 61 year old female with COPD, history of tubular adenoma previously removed but subsequently refused follow up colonoscopy, she presented with sob and found to have profound anemia with hemoglobin of 4.8, no active bleed occult blood negative. 1/ Profound symptomatic anemia--likely GI srouce of loss, but rather slow bleed. -Transfuse, hold Plavix and Ibuprofe -GI reeval to see if will be agreable to colonoscopy Follow H/H 2/COPD, I don't think there is exacerbation, but rather sob is due to severe anemia -continue inhalers, hold off steroid. Not interested in covid vaccine 3/HTN--not on meds, monitor if persistently high, add Norvasc 4/ Quality Stroke Does the patient have a stroke diagnosis?: No VTE Prior VTE?: No VTE Risk Level:: Medical - moderate - high VTE Device Contraindication: Treatment Not Indicated VTE Drug Contraindication: Treatment Not Indicated
[2021-07-19 12:32] LABS: Iron 10 mcg/dL (30-160)
[2021-07-19 12:40] LABS: Percent Iron Saturation 2 % (15-50); Total Iron Binding Capacity 571 mcg/dL (228-428); Unsaturated Iron Binding 561 ug/dL
--- NOTE | 2021-07-19 14:00 | PM.GICN ---
History of Present Illness Data of Consult Service Date: 07/19/21 Requesting physician: Alvaro Winslow Primary Care Provider: Jennifer Flores MD HPI Reason for consult: severe anemia 61 YF with COPD, PVD, Fibromyalgia, lung mass RUL, pulmonary nodules [place] [facility] [place] with SOB: Pt called 911 due to SOB and transient episode of rt arm numbnesss now resolved. She felt better after she was given neb by EMS. PT stated she had run out of her inhalers a week ago and has not been able to get refil.. She has a hx of COPD 02 dept and continues to smoke., Labs showed H&H of 4.8 & 18.6 with microcytosis and hypochromia (decreased from 8.4 in 29.9 in 05/04 and 12.7 & 35.5 in 04/2020). Iron studies were consistent with iron deficiency anemia. She denies melana or hematochezia, no coffee-ground emesis, she has been feeling very tired, taking freqquent naps, which is out of character for her. Patient complains of heartburn and regurgitation. She notes gagging when she tries to eat and sometimes drink liquids. Patient denies symptoms of nausea, vomiting. Denies recent change in bowel habits, constipation, diarrhea, black stools or rectal bleeding. Has a BM 2-3 times a day. She admits to wt loss of 35 lbs over the past few months despite having a good appetite. Patient denies major cardiac problems, loud snoring or sleep apnea Denies problems with anesthesia in the past. Pt is on Plavix for PVD and since she had bilateral femoral artery end arterectomy in 05/[address] Guillory. Pt states she is able to hold it for 5 days and not any longer. Family hx is positive for cancer in several family members - she had 12 other siblings and only 3 are alive now. Her Mom and a sister of esophageal cancer, a brother of mesothelioma, assisted of brain cancer, a brother of lung cancer, a brother of liver cirrhosis. ENDOSCOPIC STUDIES: Pt states she had 4 colonoscopies in the past - last 10 yrs ago. Pt has a history of tubular adenoma of the colon removed during her 1st colonoscopy, and no polyps were detected on 3 subsequent colonoscopies Pt refused repeat colonosocopy since she states she was not put to sleep for subsequent procedures Review of Systems Constitutional: Constitutional: Denies fever(s), Reports headache(s) and Reports weight loss Eyes: Eyes: Denies eye discharge and Denies irritation ENT: Reports Normal hearing present, Reports dysphagia, Denies dizziness and Reports headache(s) Cardiovascular: Cardiovascular: Denies chest pain, Denies leg edema, Reports dyspnea and Reports dyspnea on exertion Respiratory: Respiratory: Denies cough, Reports dyspnea, Reports dyspnea on exertion and Denies wheezing Gastrointestinal: Gastrointestinal: Denies abdominal pain, Denies change in bowel habits, Reports dysphagia, Reports heartburn and Reports other (gagging on drinking liquids and after eating) Genitourinary: Genitourinary: Denies difficulty voiding and Denies dysuria Musculoskeletal: Musculoskeletal: Denies back pain and Reports arthralgias Integumentary/Breasts: Skin/Breast: Denies pruritus, Denies rash and Denies jaundice Neurologic: Reports Normal hearing present, Denies Abnormal speech present, Denies dizziness, Reports headache(s) and Denies seizure-like activity Psychiatric: Psychiatric: Denies anxiety, Denies depression and Denies panic attacks Endocrine: Endocrine: Denies cold intolerance, Denies flushing and Denies heat intolerance Hematologic/Lymphatic: Hematologic/Lymphatic: Denies easy bleeding and Denies easy bruising Allergic/Immunologic: Allergic/Immunologic: Denies wheezing PMFSH Past Medical History Medical History (Updated 08/25/21 @ 10:21 by Johnathan Alexander MD) Anemia Aortoiliac occlusive disease Chronic Helicobacter pylori gastritis Colonoscopy refused COPD (chronic obstructive pulmonary disease) Duodenitis Fibromyalgia Gastritis History of alcohol abuse Immunization declined Mammogram declined Myopia of both eyes Osteoporosis Papanicolaou smear declined Peripheral vascular disease Pyloric ulcer Restless leg syndrome Skin lesion of back Smoker unmotivated to quit Tubular adenoma of colon Vaccination declined by patient Family History Family History Father Substance use disorder Mother Substance use disorder Brother Substance use disorder Sister Substance use disorder Sister Substance use disorder Brother Substance use disorder Surgical History Surgical History History of ankle surgery (~11/2011) History of appendectomy History of endarterectomy (~05/2020) History of exploratory thoracotomy (~04/2018) History of lung biopsy (~04/2021) History of myringotomy History of tonsillectomy History of tubal ligation Social History Social History Household Members: None Housing: House Housing Other:: mobile home Do you presently have visiting nurse or other home services: No Unable to assess alcohol history related to: Unknown Alcohol intake: former Patient Tobacco Use Status: Current everyday Tobacco user Tobacco use type: Cigar Cigarettes Per Day: 10 e-Cigarette/Vaping Use: Never Used Second Hand Smoke Exposure: Yes Advance Directives Date on File: 07/19/21 service: No Current occupational status: disabled Current occupation: rt handed Current occupational exposures/hazards: No Meds Allergies Allergy/AdvReac Type Severity Reaction Status Date / Time acetaminophen [From Tylenol] AdvReac Mild Nausea Verified 08/25/21 09:52 aspirin AdvReac Mild Vomiting Verified 08/25/21 09:52 Active Medications: Current Medications Albuterol Sulfate (Albuterol Sulfate 90 Mcg 8 Gm Inhaler) 2 puff INHALE Q4H PRN PRN Reason: dyspnea Albuterol/Ipratropium (Albuterol/Iprat 2.5/0.5mg 3 Ml Ampul.Neb) 3 ml INHALE RQ4H WHILE AWAKE BILL Fluticasone/Vilanterol (Fluticasone/Vilanterol 200/25 Blst.W.Dev) 1 puff INHALE RDAILY BILL Last Admin: 07/19/21 13:14 Dose: Not Given Documented by: Ibuprofen (Ibuprofen 600 Mg Tablet) 600 mg PO DAILY PRN PRN Reason: migraine headache Pharmacy Consult (Consult Rx Perform Med Rec) 1 each MISCELLANE ONCE PRN PRN Reason: Consult order Ropinirole HCl (Ropinirole Hcl 0.5 Mg Tablet) 0.5 mg PO DAILY BILL Sodium Chloride (0.9 % Sodium Chloride Flush 3 Ml Syringe) 3 ml IVFLUSH QSHIFT BILL Physical Exam Vital Signs: Vital Signs: Last Vital Signs Temp 98.6 F 07/19/21 13:50 Pulse 80 07/19/21 13:50 Resp 16 07/19/21 13:50 BP 137/64 07/19/21 13:50 Pulse Ox 97 07/19/21 13:09 BMI result Body Mass Index 17.9 Const: General: no acute distress and ill appearing Nutritional Appearance: underweight Orientation/consciousness: patient oriented x3 Limitations: no limitations HENMT: Head: Yes normal to inspection Ears: hearing grossly normal bilaterally Mouth: Normal oral and palatal mucosa present Eyes: Sclerae: sclerae normal Pupils: Equal, round and reactive pupils present Neck: Neck: Yes normal visual inspection Chest: Chest palpation & inspection: normal inspection of the chest Resp: Effort & Inspection: able to speak in complete sentences Auscultation: diminished lung sounds (Bilaterally) Cardio: Palpation: normal PMI Rate: regular rate Rhythm: regular rhythm Heart sounds: S1 normal heart sound present, S2 normal heart sound present and no murmurs GI: Palpation (GI): Soft to palpation, nontender and No hepatosplenomegaly present Auscultation: normal bowel sounds Rectal Exam - Female: deferred Skin: General skin exam: no rashes or lesions noted Neuro: General: patient oriented x3, gait normal and moves all extremities Cranial nerves: Yes Equal, round and reactive pupils present and Yes Normal hearing present Speech: No Abnormal speech present Psych: Appearance: grossly normal Mental Status: mental status grossly normal Results Labs CBC & Chem 7: 07/20/21 05:32 07/19/21 10:57 Labs: Short CBC 07/19/21 Range/Units 10:57 WBC 8.1 (4.8-10.8) X10*3/uL Hgb 4.8 L* (12.0-16.0) g/dl Hct 18.6 L* (37.0-47.0) % Plt Count 322 (160-400) X10*3/uL BMP 07/19/21 10:57 Sodium 137 Potassium 4.7 Chloride 108 Carbon Dioxide 20 L BUN 11 Creatinine 0.61 Calcium 9.1 Liver Function 07/19/21 Range/Units 10:57 Total Bilirubin 0.3 (0.0-1.0) mg/dL AST 13 (5-31) U/L ALT 10 (0-31) U/L Alkaline Phosphatase 105 (39-117) U/L Albumin 3.9 (3.5-5.0) g/dL Assessment and Plan (1) Severe anemia: Status: Resolved (2) Tubular adenoma of colon: Plan 61 YF with COPD, PVD, Fibromyalgia, lung mass RUL, pulmonary nodules [place] [facility] [place] morning with SOB: She has a hx of COPD 02 dept and continues to smoke., Labs showed acute on chronic anemia without overt GI bleeding. H&H of 4.8 & 18.6 with microcytosis and hypochromia (decreased from 8.4 in 29.9 in 05/04 and 12.7 & 35.5 in 04/2020). Iron studies were consistent with iron deficiency anemia. Stool Hemoccult was negative. Severe anemia likely due to upper versus lower GI blood loss or celiac disease. Pt is on aspirin and Plavix and took the last dose this am RECOMMENDATIONS: 1. Repeat CBC in the am after blood transfusion, check Vitamin B12 and celiac serologies. 2. Continue PPI 3. Proceed with EGD in the am. Procedure and potential complications were reviewed with the patient. Okay for patient to take p.o. diet and then NPO. 4. Colonoscopy as an outpatient after holding Plavix x 5 days (given hx of colon polyps, if pt has large polyps, she would be at risk of bleeding if polypectomy is performed). Procedures Date of Service Date of Service: 07/19/21
[2021-07-19] MEDS: Albuterol/Iprat 2.5/0.5MG 3 ML AMPUL.NEB INHALE ×2 (14:43→20:21)
[2021-07-19] MEDS: Ibuprofen 600 MG TABLET PO (17:35)
[2021-07-19] MEDS: rOPINIRole HCL 0.5 MG TABLET PO ×2 (21:02→23:49)
[2021-07-19] MEDS: 0.9 % Sodium Chloride Flush 3 ML SYRINGE IVFLUSH (21:04)
[2021-07-20] VITALS (9 sets, daily range): BP systolic 99–168; BP diastolic 54–83; PULSE 66–95; RESP 15–20; TEMP 36–37; O2SAT 95–100; BMI 17.9
[2021-07-20 05:43] LABS: Hematocrit 27.4 % (37.0-47.0); Hemoglobin 8.1 g/dl (12.0-16.0); Mean Corpuscular HGB Conc 29.6 g/dl (31.0-35.0); Mean Corpuscular Hemoglobin 21.7 pg (27.0-33.0); Mean Corpuscular Volume 73.5 fL (80.0-98.0); Mean Platelet Volume 9.4 fL (9.4-12.3); NRBC Pct Auto 0.3 /100WBC (0.0-0.2); Platelet Count 246 X10*3/uL (160-400); Red Blood Count 3.73 X10*6/uL (4.20-5.50); Red Cell Distribution Width 24.5 % (11.0-16.0); White Blood Count 7.8 X10*3/uL (4.8-10.8)
[2021-07-20 06:38] LABS: Folate 8.9 ng/mL (> or = 4.0); Vitamin B12 249 pg/mL (200-900)
[2021-07-20] MEDS: Albuterol/Iprat 2.5/0.5MG 3 ML AMPUL.NEB INHALE ×2 (08:27→11:48)
[2021-07-20] MEDS: Fluticasone/Vilanterol 200/25 BLST.W.DEV 1 PUFF INHALE (08:28)
[2021-07-20] MEDS: 0.9 % Sodium Chloride Flush 3 ML SYRINGE IVFLUSH (09:09)
--- NOTE | 2021-07-20 09:14 | HO.PM.IMPN ---
Subjective Subjective Date of Service: 07/20/21 Interval History: Seen in f/u for anemia, EGD planned for today, feels better after transfusion Review of Systems no melana no abdominal pain no fever Physical Exam Vital Signs: Vital Signs: Last Vital Signs Temp 98.6 F 07/20/21 07:24 Pulse 83 07/20/21 08:30 Resp 18 07/20/21 07:24 BP 138/77 07/20/21 07:24 Pulse Ox 99 07/20/21 07:24 BMI result Body Mass Index 17.9 General: AO X 3, no acute distress Resp: CTA bilateral CVS: S1,S2,RRR GI: +BS, NT, no distention Skin: No rash Neuro: motor grossly intact Psych: appropriate affect Objective Data Active Medications Albuterol Sulfate (Albuterol Sulfate 90 Mcg 8 Gm Inhaler) 2 puff INHALE Q4H PRN PRN Reason: dyspnea Albuterol/Ipratropium (Albuterol/Iprat 2.5/0.5mg 3 Ml Ampul.Neb) 3 ml INHALE RQ4H WHILE AWAKE [facility] Last Admin: 07/20/21 08:27 Dose: 3 ml Documented by: KALEN Fluticasone/Vilanterol (Fluticasone/Vilanterol 200/25 Blst.W.Dev) 1 puff INHALE RDAILY [facility] Last Admin: 07/20/21 08:28 Dose: 1 puff Documented by: KALEN Ibuprofen (Ibuprofen 600 Mg Tablet) 600 mg PO DAILY PRN PRN Reason: migraine headache Last Admin: 07/19/21 17:35 Dose: 600 mg Documented by: CLARIBEL Pharmacy Consult (Consult Rx Perform Med Rec) 1 each MISCELLANE ONCE PRN PRN Reason: Consult order Ropinirole HCl (Ropinirole Hcl 0.5 Mg Tablet) 0.5 mg PO DAILY [facility] Last Admin: 07/20/21 09:03 Dose: Not Given Documented by: GLEN Non-Admin Reason: not given in morning, given at night Sodium Chloride (0.9 % Sodium Chloride Flush 3 Ml Syringe) 3 ml IVFLUSH QSHIFT [facility] Last Admin: 07/20/21 09:09 Dose: 3 ml Documented by: GLEN Labs CBC & Chem 7: 07/20/21 05:32 07/19/21 10:57 Labs: Laboratory Results - last 24 hr 07/19/21 07/19/21 07/19/21 10:57 10:57 10:57 MCV 64.8 L MCH 16.7 L MCHC 25.8 L RDW 20.1 H Plt Count 322 MPV 9.5 Immature Gran % (Auto) 0.4 Neut % (Auto) 68.2 Lymph % (Auto) 21.6 [place] % (Auto) 7.7 Eos % (Auto) 1.7 Baso % (Auto) 0.4 Lymph # (Auto) 1.8 [place] # (Auto) 0.6 Eos # (Auto) 0.1 Baso # (Auto) 0.0 Abs Immat Gran (auto) 0.03 Absolute Neuts (auto) 5.5 Absolute Nucleated RBC 0.000 Nucleated RBC % (auto) 0.0 Smear Path Review SEE NOTE PT 11.0 INR 1.0 Anion Gap 14 Estim Creat Clear Calc 67.4 Estimated GFR > 60 Random Glucose 97 Calcium 9.1 Iron TIBC % Saturation Unsat Iron Binding Total Bilirubin 0.3 AST 13 ALT 10 Alkaline Phosphatase 105 Troponin I High Sens B-Natriuretic Peptide Total Protein 6.3 L Albumin 3.9 Vitamin B12 Folate Stool Occult Blood Influenza Type A (PCR) Influenza Type B (PCR) RSV RNA Qual (PCR) SARS-CoV-2 RNA (RT-PCR) Blood Type Antibody Screen Crossmatch 07/19/21 07/19/21 07/19/21 10:57 10:57 10:57 MCV MCH MCHC RDW Plt Count MPV Immature Gran % (Auto) Neut % (Auto) Lymph % (Auto) [place] % (Auto) Eos % (Auto) Baso % (Auto) Lymph # (Auto) [place] # (Auto) Eos # (Auto) Baso # (Auto) Abs Immat Gran (auto) Absolute Neuts (auto) Absolute Nucleated RBC Nucleated RBC % (auto) Smear Path Review PT INR Anion Gap Estim Creat Clear Calc Estimated GFR Random Glucose Calcium Iron TIBC % Saturation Unsat Iron Binding Total Bilirubin AST ALT Alkaline Phosphatase Troponin I High Sens 5.1 B-Natriuretic Peptide 277 H Total Protein Albumin Vitamin B12 Folate Stool Occult Blood Influenza Type A (PCR) NEGATIVE Influenza Type B (PCR) NEGATIVE RSV RNA Qual (PCR) NEGATIVE SARS-CoV-2 RNA (RT-PCR) NEGATIVE Blood Type Antibody Screen Crossmatch 07/19/21 07/19/21 07/19/21 11:23 11:45 11:45 MCV MCH MCHC RDW Plt Count MPV Immature Gran % (Auto) Neut % (Auto) Lymph % (Auto) [place] % (Auto) Eos % (Auto) Baso % (Auto) Lymph # (Auto) [place] # (Auto) Eos # (Auto) Baso # (Auto) Abs Immat Gran (auto) Absolute Neuts (auto) Absolute Nucleated RBC Nucleated RBC % (auto) Smear Path Review PT INR Anion Gap Estim Creat Clear Calc Estimated GFR Random Glucose Calcium Iron 10 L TIBC 571 H % Saturation 2 L Unsat Iron Binding 561 Total Bilirubin AST ALT Alkaline Phosphatase Troponin I High Sens B-Natriuretic Peptide Total Protein Albumin Vitamin B12 Folate Stool Occult Blood NEGATIVE Influenza Type A (PCR) Influenza Type B (PCR) RSV RNA Qual (PCR) SARS-CoV-2 RNA (RT-PCR) Blood Type O Positive Antibody Screen NEGATIVE Crossmatch See Detail 07/20/21 07/20/21 05:32 05:32 MCV 73.5 L D MCH 21.7 L MCHC 29.6 L RDW 24.5 H Plt Count 246 MPV 9.4 Immature Gran % (Auto) Neut % (Auto) Lymph % (Auto) [place] % (Auto) Eos % (Auto) Baso % (Auto) Lymph # (Auto) [place] # (Auto) Eos # (Auto) Baso # (Auto) Abs Immat Gran (auto) Absolute Neuts (auto) Absolute Nucleated RBC 0.020 H Nucleated RBC % (auto) 0.3 H Smear Path Review PT INR Anion Gap Estim Creat Clear Calc Estimated GFR Random Glucose Calcium Iron TIBC % Saturation Unsat Iron Binding Total Bilirubin AST ALT Alkaline Phosphatase Troponin I High Sens B-Natriuretic Peptide Total Protein Albumin Vitamin B12 249 Folate 8.9 Stool Occult Blood Influenza Type A (PCR) Influenza Type B (PCR) RSV RNA Qual (PCR) SARS-CoV-2 RNA (RT-PCR) Blood Type Antibody Screen Crossmatch Assessment and Plan (1) Severe anemia: Status: Acute Assessment and Plan: 61 year old female with COPD, history of tubular adenoma previously removed but subsequently refused follow up? colonoscopy, she presented with sob and found to have profound anemia with hemoglobin of 4.8, no active bleed occult blood negative. 1/ Profound symptomatic anemia--likely GI srouce of loss, probable slow bleed in setting of history of tubular adenoma and declined repeat colonoscopy. Hemoglobin and hematocrit has improved with 2 units of RBC on 06/19, Dr. Fitzpatrick will perform EGD today and repeat colnoscopy on outpatient basis, now that she's agreable. Add Iron 2/COPD, I don't think there is exacerbation, but rather sob is due to severe anemia -continue inhalers, hold off steroid. Not interested in covid vaccine 3/HTN--not on meds, monitor if persistently high, add Norvasc 4/Peripheral vascular disease--has been on Plavix, will hold for now. 5/Chronic tobacco dependence--Cessation discussed Quality Stroke Does the patient have a stroke diagnosis?: No VTE Prior VTE?: No VTE Risk Level:: Medical - moderate - high VTE Device Contraindication: Treatment Not Indicated VTE Drug Contraindication: Treatment Not Indicated
--- NOTE | 2021-07-20 09:29 | P.DS_ITS ---
DS: Providers Provider Date of Service: 07/20/21 Date of admission: 07/19/21 12:24 Primary care physician: Jennifer Flores MD Consults: 07/19/21 12:40 Consult to Gastroenterology Routine Consulting Provider: Hemant Fitzpatrick Reason for consultation: anemia, history of adenoma DS: Diagnosis Discharge Diagnosis (1) Severe anemia: Status: Resolved DS: Summary Hospital Course Hospital Course: Admission HPI: 61-year-old lady with peripheral vascular disease s/p aorta to iliac occlusive, s/p bypas in the past, , history of tubular adenoma of the colon removed on last colonoscopy, but subsequently refused follow up colonosocopy,? COPD with active? smoker. She called 911 this morning due to increasing shortness of breath. She run out of her inhalers about a week ago and has not been able to get refil.? She? is noted to be signficantly anemic with hemoglobin of 4.8,? it was 8.4 last april and in April 2020 it 12. She denies melana or hematochezia, no coffee-ground emesis, she has been feeling very tired, taking freqquent naps, which is out of character for her. Hospital course: 1/ Profound symptomatic anemia--likely GI srouce of loss, probable slow bleed in setting of history of tubular adenoma and declined repeat colonoscopy. Hemoglobin and hematocrit has improved with 2 units of RBC on 06/19, Dr. Fitzpatrick will perform EGD today and showed ESOPHAGUS: Small hiatal hernia, STOMACH: Moderate gastric erythema with multiple 2-3 mm antral erosions, A 1 cms superficial non-bleeidng ulcer in the pyloric canal, One small biopsy was obtained to check for H Pylori, DUODENUM: Duodenitis in the bulb, will add PPI, oral iron and to follow up with Dr. Fitzpatrick for outpatient conolscopy. H/H has significantly improved to hemoglobin of 8.1 today, following 2 units of RBC, was 7 on admission 2/COPD, no exacerbation, continue usual inhalers 3/HTN--not on meds, monitor if persistently high, add Norvasc 4/Peripheral vascular disease--has been on Plavix, will hold for now. 5/Chronic tobacco dependence--Cessation discussed Time Spent with Patient Time attestation: Total time spent providing and/or coordinating discharge services: Discharge coordination time: Greater than 30 minutes Quality: Stroke Does the patient have a stroke diagnosis?: No Physical Exam Verdana 4l Vital Signs: Verdana 4d Verdana 4d Vital Signs: Verdana 4d Verdana 4Bd Last Vital Signs Verdana 4d Therapeutic Strategy Lead New 4d Therapeutic Strategy Lead New 4d Temp 98.6 F 07/20/21 07:24 Therapeutic Strategy Lead New 4d Pulse 83 07/20/21 08:30 Therapeutic Strategy Lead New 4d Resp 18 07/20/21 07:24 BP 138/77 07/20/21 07:24 Pulse Ox 99 07/20/21 07:24 BMI result Body Mass Index 17.9 DS: Data Data Completed and Pending Labs on day of discharge: Laboratory Results - last 24 hr 07/19/21 07/19/21 07/19/21 10:57 10:57 10:57 WBC 8.1 RBC 2.87 L Hgb 4.8 L* Hct 18.6 L* MCV 64.8 L MCH 16.7 L MCHC 25.8 L RDW 20.1 H Plt Count 322 MPV 9.5 Immature Gran % (Auto) 0.4 Neut % (Auto) 68.2 Lymph % (Auto) 21.6 [place] % (Auto) 7.7 Eos % (Auto) 1.7 Baso % (Auto) 0.4 Lymph # (Auto) 1.8 [place] # (Auto) 0.6 Eos # (Auto) 0.1 Baso # (Auto) 0.0 Abs Immat Gran (auto) 0.03 Absolute Neuts (auto) 5.5 Absolute Nucleated RBC 0.000 Nucleated RBC % (auto) 0.0 Smear Path Review SEE NOTE PT 11.0 INR 1.0 Sodium 137 Potassium 4.7 Chloride 108 Carbon Dioxide 20 L Anion Gap 14 BUN 11 Creatinine 0.61 Estim Creat Clear Calc 67.4 Estimated GFR > 60 Random Glucose 97 Calcium 9.1 Iron TIBC % Saturation Unsat Iron Binding Total Bilirubin 0.3 AST 13 ALT 10 Alkaline Phosphatase 105 Troponin I High Sens B-Natriuretic Peptide Total Protein 6.3 L Albumin 3.9 Vitamin B12 Folate Stool Occult Blood Influenza Type A (PCR) Influenza Type B (PCR) RSV RNA Qual (PCR) SARS-CoV-2 RNA (RT-PCR) Blood Type Antibody Screen Crossmatch 12/02/0107/19/21 07/19/21 10:57 10:57 10:57 WBC RBC Hgb Hct MCV MCH MCHC RDW Plt Count MPV Immature Gran % (Auto) Neut % (Auto) Lymph % (Auto) [place] % (Auto) Eos % (Auto) Baso % (Auto) Lymph # (Auto) [place] # (Auto) Eos # (Auto) Baso # (Auto) Abs Immat Gran (auto) Absolute Neuts (auto) Absolute Nucleated RBC Nucleated RBC % (auto) Smear Path Review PT INR Sodium Potassium Chloride Carbon Dioxide Anion Gap BUN Creatinine Estim Creat Clear Calc Estimated GFR Random Glucose Calcium Iron TIBC % Saturation Unsat Iron Binding Total Bilirubin AST ALT Alkaline Phosphatase Troponin I High Sens 5.1 B-Natriuretic Peptide 277 H Total Protein Albumin Vitamin B12 Folate Stool Occult Blood Influenza Type A (PCR) NEGATIVE Influenza Type B (PCR) NEGATIVE RSV RNA Qual (PCR) NEGATIVE SARS-CoV-2 RNA (RT-PCR) NEGATIVE Blood Type Antibody Screen Crossmatch 07/19/21 07/19/21 07/19/21 11:23 11:45 11:45 WBC RBC Hgb Hct MCV MCH MCHC RDW Plt Count MPV Immature Gran % (Auto) Neut % (Auto) Lymph % (Auto) [place] % (Auto) Eos % (Auto) Baso % (Auto) Lymph # (Auto) [place] # (Auto) Eos # (Auto) Baso # (Auto) Abs Immat Gran (auto) Absolute Neuts (auto) Absolute Nucleated RBC Nucleated RBC % (auto) Smear Path Review PT INR Sodium Potassium Chloride Carbon Dioxide Anion Gap BUN Creatinine Estim Creat Clear Calc Estimated GFR Random Glucose Calcium Iron 10 L TIBC 571 H % Saturation 2 L Unsat Iron Binding 561 Total Bilirubin AST ALT Alkaline Phosphatase Troponin I High Sens B-Natriuretic Peptide Total Protein Albumin Vitamin B12 Folate Stool Occult Blood NEGATIVE Influenza Type A (PCR) Influenza Type B (PCR) RSV RNA Qual (PCR) SARS-CoV-2 RNA (RT-PCR) Blood Type O Positive Antibody Screen NEGATIVE Crossmatch See Detail 07/20/21 07/20/21 05:32 05:32 WBC 7.8 RBC 3.73 L D Hgb 8.1 L D Hct 27.4 L D MCV 73.5 L D MCH 21.7 L MCHC 29.6 L RDW 24.5 H Plt Count 246 MPV 9.4 Immature Gran % (Auto) Neut % (Auto) Lymph % (Auto) [place] % (Auto) Eos % (Auto) Baso % (Auto) Lymph # (Auto) [place] # (Auto) Eos # (Auto) Baso # (Auto) Abs Immat Gran (auto) Absolute Neuts (auto) Absolute Nucleated RBC 0.020 H Nucleated RBC % (auto) 0.3 H Smear Path Review PT INR Sodium Potassium Chloride Carbon Dioxide Anion Gap BUN Creatinine Estim Creat Clear Calc Estimated GFR Random Glucose Calcium Iron TIBC % Saturation Unsat Iron Binding Total Bilirubin AST ALT Alkaline Phosphatase Troponin I High Sens B-Natriuretic Peptide Total Protein Albumin Vitamin B12 249 Folate 8.9 Stool Occult Blood Influenza Type A (PCR) Influenza Type B (PCR) RSV RNA Qual (PCR) SARS-CoV-2 RNA (RT-PCR) Blood Type Antibody Screen Crossmatch Discharge Plan Discharge Anticipated Discharge Date/Time: 07/20/21 14:10 Patient Disposition: Home, Self-Care Discharge Diagnosis: Severe anemia Referrals: Jennifer Flores MD [Primary Care Provider] - 1 Week Hemant Fitzpatrick MD [Physician] - 2 Weeks (Call for appointment) Discharge Medications: New ferrous sulfate [iron] 325 mg (65 mg iron) tablet 325 mg PO BID Qty: 60 0RF Continued albuterol sulfate 90 mcg/actuation HFA aerosol inhaler 1 - 2 puff inhalation Q4-6H PRN (Reason: dyspnea) Qty: 8.5 2RF clopidogrel 75 mg tablet 75 mg PO DAILY 0RF No Action ropinirole 0.5 mg tablet 1 mg PO DAILY Qty: 30 1RF budesonide-formoterol [Symbicort] 160-4.5 mcg/actuation HFA aerosol inhaler 2 puff PO BID Qty: 10.2 2RF lisinopril 10 mg tablet 5 mg PO DAILY Qty: 15 2RF pantoprazole [Protonix] 40 mg tablet,delayed release (DR/EC) 40 mg PO DAILY 30 Days Qty: 30 6RF Discharge Orders: Discharge Order (Routine); Ordered 07/20/21 Ordered By: Alvaro Winslow Diet: advance to usual diet Activity on Discharge: As tolerated Stand Alone Forms: Patient Portal Discharge page Care Plan Goals: Full work up for anemia Health Concerns: Severe anemia, chronic tobacco use, history of tubular adenoma Plan of Treatment: Follow up with Dr. Fitzpatrick for colonoscopy Assessment: as above Discharge Date/Time: 07/20/21 15:39
--- NOTE | 2021-07-20 09:54 | MHC.CM.PN ---
EMR REVIEWED, PT ADMITTED W/ANEMIA AND COPD EXAC, CM MET W/PT WHO IS A&0X4, PT REPORTS SHE LIVES ALONE, USES A CANE AND HAS INHALERS AND A NEBULIZER AT HOME, PT DID C/O HER PCP NOT CALLING IN A NEW ORDER FOR HER SYMBACORT INHALER, PT HAS [employer] WEEKLY LANDING SIGNAL OFFICER WHO ASSISTS W/CLEANING/SHOPPING/ERRANDS AND IS INDEPENDENT W/ADLS, PT ALSO REPORTS HER NIECE LIVES IN THE SAME TRAILER PARK AND ASSISTS WHEN NEEDED. PT REPORTS SHE WANTS TO RETURN HOME UPON D/C AND IS OPEN TO VNA IF RECOMMENDED W/NO PREFERENCE OF VNA. PT VERIFIES PCP ELANA MCCURDY AND HCP [phone]. D/C PLAN: HOME W/RESUMP OF LANDING SIGNAL OFFICER AND ?NEW VNA, FAMILY FOR TRANSPORT.
--- NOTE | 2021-07-20 09:56 | HO.ANESPROP2 ---
[facility] Active Problems Active Problems: All Active Problems (Updated 07/19/21 @ 11:21 by Emeterio Bucio MD) Severe anemia (Acute) Shortness of breath (Acute) Contusion of leg, right (Acute) Myopia of both eyes (Acute) Vaccination declined by patient (Acute) Papanicolaou smear declined (Acute) Colonoscopy refused (Acute) Mammogram declined (Acute) Anemia (Acute) Pulmonary nodules (Acute) Smoker unmotivated to quit (Acute) Restless leg syndrome (Acute) Aortoiliac occlusive disease (Acute) Tubular adenoma of colon (Acute) Chronic Helicobacter pylori gastritis (Acute) COPD (chronic obstructive pulmonary disease) (Acute) Fibromyalgia (Acute) Peripheral vascular disease (Acute) Osteoporosis (Acute) Past Medical History Medical History Anemia Aortoiliac occlusive disease Chronic Helicobacter pylori gastritis Colonoscopy refused COPD (chronic obstructive pulmonary disease) Fibromyalgia History of alcohol abuse Mammogram declined Myopia of both eyes Osteoporosis Papanicolaou smear declined Peripheral vascular disease Restless leg syndrome Smoker unmotivated to quit Tubular adenoma of colon Vaccination declined by patient Functional capacity: independent ambulation Patient : No Family History Family History Father Substance use disorder Mother Substance use disorder Brother Substance use disorder Sister Substance use disorder Sister Substance use disorder Brother Substance use disorder Family history of problems with anesthesia: No Surgical History Surgical History History of ankle surgery (~11/2011) History of appendectomy History of endarterectomy (~05/2020) History of exploratory thoracotomy (~04/2018) History of lung biopsy (~04/2021) History of myringotomy History of tonsillectomy History of tubal ligation Social History Social History Household Members: None Housing: House Housing Other:: mobile home Do you presently have visiting nurse or other home services: No Unable to assess alcohol history related to: Unknown Alcohol intake: former Patient Tobacco Use Status: Current everyday Tobacco user Tobacco use type: Cigar Cigarettes Per Day: 10 Smoked in Last 30 Days: Yes e-Cigarette/Vaping Use: Never Used Patient Interested in Nicotine Replacement: No Patient Given Instructions on How to Stop Smoking: No Second Hand Smoke Exposure: Yes Use of substances other than those prescribed or required for medical reasons: No Currently Displaying Signs/Symptoms of Drug Intoxication Withdrawal: No Any prior treatment program specific to substance use: No Have you been hit, kicked, punched, or otherwise hurt by someone within the past year? If so, by whom?: No Do you feel safe in your current relationship?: No Current Relationship Is there a partner from a previous relationship who is making you feel unsafe now?: No Are you made to feel afraid or neglected: No Are you DNR?: No Advance Directives: Yes Advance Directives on File: Yes Advance Directives Date on File: 07/19/21 Do you have thoughts of harming others: None Do you have a plan to hurt others: No Plan Recently lost weight without trying: Yes How much weight loss: 14-23 pounds Nutrition Risks: No Nutritional Risk Patient : No service: No Current occupational status: disabled Current occupational exposures/hazards: No Meds Allergies Allergy/AdvReac Type Severity Reaction Status Date / Time acetaminophen [From Tylenol] Allergy Mild Nausea Verified 07/16/21 13:19 aspirin AdvReac Mild Vomiting Verified 07/20/21 01:15 Active Medications: Current Medications Albuterol Sulfate (Albuterol Sulfate 90 Mcg 8 Gm Inhaler) 2 puff INHALE Q4H PRN PRN Reason: dyspnea Albuterol/Ipratropium (Albuterol/Iprat 2.5/0.5mg 3 Ml Ampul.Neb) 3 ml INHALE RQ4H WHILE AWAKE [facility] Last Admin: 07/20/21 08:27 Dose: 3 ml Documented by: Fluticasone/Vilanterol (Fluticasone/Vilanterol 200/25 Blst.W.Dev) 1 puff INHALE RDAILY [facility] Last Admin: 07/20/21 08:28 Dose: 1 puff Documented by: Ibuprofen (Ibuprofen 600 Mg Tablet) 600 mg PO DAILY PRN PRN Reason: migraine headache Last Admin: 07/19/21 17:35 Dose: 600 mg Documented by: Pharmacy Consult (Consult Rx Perform Med Rec) 1 each MISCELLANE ONCE PRN PRN Reason: Consult order Ropinirole HCl (Ropinirole Hcl 0.5 Mg Tablet) 0.5 mg PO DAILY [facility] Last Admin: 07/20/21 09:03 Dose: Not Given Documented by: Sodium Chloride (0.9 % Sodium Chloride Flush 3 Ml Syringe) 3 ml IVFLUSH QSHIFT [facility] Last Admin: 07/20/21 09:09 Dose: 3 ml Documented by: Home Medications Medication Instructions Recorded Confirmed Last Taken Type clopidogrel 75 mg tablet 75 mg PO DAILY 11/03/20 07/19/21 07/19/21 History Exam Exam Date and Time: July 20, 2021 0956 Height,Weight and Vital Signs: Height 5 ft 1 in Weight 43 kg Last Vital Signs Temp 98.5 F 07/20/21 09:50 Pulse 73 07/20/21 09:50 Resp 15 07/20/21 09:50 BP 163/80 H 07/20/21 09:50 Pulse Ox 100 07/20/21 09:50 Pertinent Lab Results Pertinent Lab Results: Laboratory Tests 07/19/21 07/19/21 07/19/21 10:57 10:57 10:57 WBC 8.1 RBC 2.87 L Hgb 4.8 L* Hct 18.6 L* MCV 64.8 L MCH 16.7 L MCHC 25.8 L RDW 20.1 H Plt Count 322 MPV 9.5 Immature Gran % (Auto) 0.4 Neut % (Auto) 68.2 Lymph % (Auto) 21.6 [place] % (Auto) 7.7 Eos % (Auto) 1.7 Baso % (Auto) 0.4 Lymph # (Auto) 1.8 [facility] # (Auto) 0.6 Eos # (Auto) 0.1 Baso # (Auto) 0.0 Abs Immat Gran (auto) 0.03 Absolute Neuts (auto) 5.5 Absolute Nucleated RBC 0.000 Nucleated RBC % (auto) 0.0 Smear Path Review SEE NOTE PT 11.0 INR 1.0 Sodium 137 Potassium 4.7 Chloride 108 Carbon Dioxide 20 L Anion Gap 14 BUN 11 Creatinine 0.61 Estim Creat Clear Calc 67.4 Estimated GFR > 60 Random Glucose 97 Calcium 9.1 Iron TIBC % Saturation Unsat Iron Binding Total Bilirubin 0.3 AST 13 ALT 10 Alkaline Phosphatase 105 Troponin I High Sens B-Natriuretic Peptide Total Protein 6.3 L Albumin 3.9 Vitamin B12 Folate Stool Occult Blood Influenza Type A (PCR) Influenza Type B (PCR) RSV RNA Qual (PCR) SARS-CoV-2 RNA (RT-PCR) Blood Type Antibody Screen Crossmatch 07/19/21 07/19/21 07/19/21 10:57 10:57 10:57 WBC RBC Hgb Hct MCV MCH MCHC RDW Plt Count MPV Immature Gran % (Auto) Neut % (Auto) Lymph % (Auto) [place] % (Auto) Eos % (Auto) Baso % (Auto) Lymph # (Auto) [facility] # (Auto) Eos # (Auto) Baso # (Auto) Abs Immat Gran (auto) Absolute Neuts (auto) Absolute Nucleated RBC Nucleated RBC % (auto) Smear Path Review PT INR Sodium Potassium Chloride Carbon Dioxide Anion Gap BUN Creatinine Estim Creat Clear Calc Estimated GFR Random Glucose Calcium Iron TIBC % Saturation Unsat Iron Binding Total Bilirubin AST ALT Alkaline Phosphatase Troponin I High Sens 5.1 B-Natriuretic Peptide 277 H Total Protein Albumin Vitamin B12 Folate Stool Occult Blood Influenza Type A (PCR) NEGATIVE Influenza Type B (PCR) NEGATIVE RSV RNA Qual (PCR) NEGATIVE SARS-CoV-2 RNA (RT-PCR) NEGATIVE Blood Type Antibody Screen Crossmatch 07/19/21 07/19/21 07/19/21 11:23 11:45 11:45 WBC RBC Hgb Hct MCV MCH MCHC RDW Plt Count MPV Immature Gran % (Auto) Neut % (Auto) Lymph % (Auto) [facility] % (Auto) Eos % (Auto) Baso % (Auto) Lymph # (Auto) [facility] # (Auto) Eos # (Auto) Baso # (Auto) Abs Immat Gran (auto) Absolute Neuts (auto) Absolute Nucleated RBC Nucleated RBC % (auto) Smear Path Review PT INR Sodium Potassium Chloride Carbon Dioxide Anion Gap BUN Creatinine Estim Creat Clear Calc Estimated GFR Random Glucose Calcium Iron 10 L TIBC 571 H % Saturation 2 L Unsat Iron Binding 561 Total Bilirubin AST ALT Alkaline Phosphatase Troponin I High Sens B-Natriuretic Peptide Total Protein Albumin Vitamin B12 Folate Stool Occult Blood NEGATIVE Influenza Type A (PCR) Influenza Type B (PCR) RSV RNA Qual (PCR) SARS-CoV-2 RNA (RT-PCR) Blood Type O Positive Antibody Screen NEGATIVE Crossmatch See Detail 07/20/21 07/20/21 05:32 05:32 WBC 7.8 RBC 3.73 L D Hgb 8.1 L D Hct 27.4 L D MCV 73.5 L D MCH 21.7 L MCHC 29.6 L RDW 24.5 H Plt Count 246 MPV 9.4 Immature Gran % (Auto) Neut % (Auto) Lymph % (Auto) [facility] % (Auto) Eos % (Auto) Baso % (Auto) Lymph # (Auto) [facility] # (Auto) Eos # (Auto) Baso # (Auto) Abs Immat Gran (auto) Absolute Neuts (auto) Absolute Nucleated RBC 0.020 H Nucleated RBC % (auto) 0.3 H Smear Path Review PT INR Sodium Potassium Chloride Carbon Dioxide Anion Gap BUN Creatinine Estim Creat Clear Calc Estimated GFR Random Glucose Calcium Iron TIBC % Saturation Unsat Iron Binding Total Bilirubin AST ALT Alkaline Phosphatase Troponin I High Sens B-Natriuretic Peptide Total Protein Albumin Vitamin B12 249 Folate 8.9 Stool Occult Blood Influenza Type A (PCR) Influenza Type B (PCR) RSV RNA Qual (PCR) SARS-CoV-2 RNA (RT-PCR) Blood Type Antibody Screen Crossmatch Airway Mallampati Class: II TM Dist: >3cm Neck ROM: Full Heart: RRR Lungs: CTA Assessment and Plan Final Anesthetic Review Family History of Problems with Anesthesia: No ASA Class: III Final Preanesthetic Review: No Changes in Pt Med Stat Patient Risk: Intermediate Procedure Risk: Low Anesthetic Plan Anesthetic Plan: MAC: Disposition: Standard PACU
--- NOTE | 2021-07-20 10:35 | P.BOP_ITS ---
Brief Operative Note Date of Service: 07/20/21 Pre-op diagnosis: severe anemia, GERD Post-op diagnosis: other (Hiatal hernia, gastric erosions and ulcer, duodenitis) Procedure: FLEXIBLE TRANSORAL UPPER GASTROINTESTINAL ENDOSCOPY WITH BIOPSY Consent: Indications for the procedure and potential complications of bleeding, perforation, reaction to medications and missed diagnosis were discussed with the patient and informed consent was obtained. Instrument: Olympus GIF H 190 mid size upper endoscope Monitoring: Vital signs and clinical assessment, continuous EKG monitoring, Pulse oximetry, Carbon Dioxide monitoring and blood pressure monitoring were done throughout the procedure. Procedure: The patient was placed in the left lateral decubitis position and pre-procedure medications were administered and a bite block was placed. The endoscope was inserted into the mouth and advanced under direct vision to the third part of duodenum. A careful inspection was made as the upper endoscope was withdrawn including a retroflexed examination of the proximal stomach; Findings and interventions are described below. Findings: Larynx: Normal Esophagus: GE junction at 35 cms, small hiatal hernia 35 to 38 cms. No esophagitis or Gann's. Stomach: Moderate gastric erythema with multiple 2-3 mm antral erosions. A 1 cms superficial non-bleeidng ulcer in the pyloric canal One small biopsy was obtained to check for H Pylori. Grade 3 flap valve on retroflexed examination of the cardia. Duodenum: Duodenitis in the bulb and normal descending duodenum Intervention: Biopsies as noted above Impression and Post Procedure Diagnosis: Endoscopy Findings: ESOPHAGUS: Small hiatal hernia STOMACH: Moderate gastric erythema with multiple 2-3 mm antral erosions. A 1 cms superficial non-bleeidng ulcer in the pyloric canal One small biopsy was obtained to check for H Pylori. DUODENUM: Duodenitis in the bulb No clear source found for NURIA. Plan: Await pathology results. Patient will be scheduled for a Colonoscopy in 1-2 weeks as an outpatient (after holding Plavix x 5 days) Surgeon: Hemant Fitzpatrick MD Anesthesia: MAC (Dr Valencia) Was an Sales Representative [employer] used for this Procedure?: Yes Sales Representative [employer]: Sveta Meyer Estimated blood loss (mL): 0 Pathology: other (A. gastric antrum bxs, R/O H. pylori) Condition: stable Disposition: PACU
--- NOTE | 2021-07-20 11:32 | P.CONAN_ITS ---
[facility] Active Problems Active Problems: All Active Problems (Updated 07/19/21 @ 11:21 by Emeterio marcos MD) Severe anemia (Acute) Shortness of breath (Acute) Contusion of leg, right (Acute) Myopia of both eyes (Acute) Vaccination declined by patient (Acute) Papanicolaou smear declined (Acute) Colonoscopy refused (Acute) Mammogram declined (Acute) Anemia (Acute) Pulmonary nodules (Acute) Smoker unmotivated to quit (Acute) Restless leg syndrome (Acute) Aortoiliac occlusive disease (Acute) Tubular adenoma of colon (Acute) Chronic Helicobacter pylori gastritis (Acute) COPD (chronic obstructive pulmonary disease) (Acute) Fibromyalgia (Acute) Peripheral vascular disease (Acute) Osteoporosis (Acute) Past Medical History Medical History Anemia Aortoiliac occlusive disease Chronic Helicobacter pylori gastritis Colonoscopy refused COPD (chronic obstructive pulmonary disease) Fibromyalgia History of alcohol abuse Mammogram declined Myopia of both eyes Osteoporosis Papanicolaou smear declined Peripheral vascular disease Restless leg syndrome Smoker unmotivated to quit Tubular adenoma of colon Vaccination declined by patient Functional capacity: independent ambulation Family History Family History Father Substance use disorder Mother Substance use disorder Brother Substance use disorder Sister Substance use disorder Sister Substance use disorder Brother Substance use disorder Family history of problems with anesthesia: No Surgical History Surgical History History of ankle surgery (~11/2011) History of appendectomy History of endarterectomy (~05/2020) History of exploratory thoracotomy (~04/2018) History of lung biopsy (~04/2021) History of myringotomy History of tonsillectomy History of tubal ligation Social History Social History Household Members: None Housing: House Housing Other:: mobile home Do you presently have visiting nurse or other home services: No Unable to assess alcohol history related to: Unknown Alcohol intake: former Patient Tobacco Use Status: Current everyday Tobacco user Tobacco use type: Cigar Cigarettes Per Day: 10 Smoked in Last 30 Days: Yes e-Cigarette/Vaping Use: Never Used Patient Interested in Nicotine Replacement: No Patient Given Instructions on How to Stop Smoking: No Second Hand Smoke Exposure: Yes Use of substances other than those prescribed or required for medical reasons: No Currently Displaying Signs/Symptoms of Drug Intoxication Withdrawal: No Any prior treatment program specific to substance use: No Have you been hit, kicked, punched, or otherwise hurt by someone within the past year? If so, by whom?: No Do you feel safe in your current relationship?: No Current Relationship Is there a partner from a previous relationship who is making you feel unsafe now?: No Are you made to feel afraid or neglected: No Are you DNR?: No Advance Directives: Yes Advance Directives on File: Yes Advance Directives Date on File: 07/19/21 Do you have thoughts of harming others: None Do you have a plan to hurt others: No Plan Recently lost weight without trying: Yes How much weight loss: 14-23 pounds Nutrition Risks: No Nutritional Risk Patient : No service: No Current occupational status: disabled Current occupational exposures/hazards: No Meds Allergies Allergy/AdvReac Type Severity Reaction Status Date / Time acetaminophen [From Tylenol] Allergy Mild Nausea Verified 07/16/21 13:19 aspirin AdvReac Mild Vomiting Verified 07/20/21 01:15 Active Medications: Current Medications Albuterol Sulfate (Albuterol Sulfate 90 Mcg 8 Gm Inhaler) 2 puff INHALE Q4H PRN PRN Reason: dyspnea Albuterol/Ipratropium (Albuterol/Iprat 2.5/0.5mg 3 Ml Ampul.Neb) 3 ml INHALE RQ4H WHILE AWAKE [facility] Last Admin: 07/20/21 08:27 Dose: 3 ml Documented by: Fluticasone/Vilanterol (Fluticasone/Vilanterol 200/25 Blst.W.Dev) 1 puff INHALE RDAILY [facility] Last Admin: 07/20/21 08:28 Dose: 1 puff Documented by: Ibuprofen (Ibuprofen 600 Mg Tablet) 600 mg PO DAILY PRN PRN Reason: migraine headache Last Admin: 07/19/21 17:35 Dose: 600 mg Documented by: Pharmacy Consult (Consult Rx Perform Med Rec) 1 each MISCELLANE ONCE PRN PRN Reason: Consult order Ropinirole HCl (Ropinirole Hcl 0.5 Mg Tablet) 0.5 mg PO DAILY [facility] Last Admin: 07/20/21 09:03 Dose: Not Given Documented by: Sodium Chloride (0.9 % Sodium Chloride Flush 3 Ml Syringe) 3 ml IVFLUSH QSHIFT [facility] Last Admin: 07/20/21 09:09 Dose: 3 ml Documented by: Home Medications Medication Instructions Recorded Confirmed Last Taken Type clopidogrel 75 mg tablet 75 mg PO DAILY 11/03/20 07/19/21 07/19/21 History Exam Exam Date and Time: July 20, 2021 1132 Height,Weight and Vital Signs: Height 5 ft 1 in Weight 43 kg Last Vital Signs Temp 97.6 F 07/20/21 11:21 Pulse 79 07/20/21 11:21 Resp 20 07/20/21 11:21 BP 128/68 07/20/21 11:21 Pulse Ox 99 07/20/21 11:21 Pertinent Lab Results Pertinent Lab Results: Laboratory Tests 07/19/21 07/19/21 07/19/21 10:57 10:57 10:57 WBC 8.1 RBC 2.87 L Hgb 4.8 L* Hct 18.6 L* MCV 64.8 L MCH 16.7 L MCHC 25.8 L RDW 20.1 H Plt Count 322 MPV 9.5 Immature Gran % (Auto) 0.4 Neut % (Auto) 68.2 Lymph % (Auto) 21.6 [place] % (Auto) 7.7 Eos % (Auto) 1.7 Baso % (Auto) 0.4 Lymph # (Auto) 1.8 [place] # (Auto) 0.6 Eos # (Auto) 0.1 Baso # (Auto) 0.0 Abs Immat Gran (auto) 0.03 Absolute Neuts (auto) 5.5 Absolute Nucleated RBC 0.000 Nucleated RBC % (auto) 0.0 Smear Path Review SEE NOTE PT 11.0 INR 1.0 Sodium 137 Potassium 4.7 Chloride 108 Carbon Dioxide 20 L Anion Gap 14 BUN 11 Creatinine 0.61 Estim Creat Clear Calc 67.4 Estimated GFR > 60 Random Glucose 97 Calcium 9.1 Iron TIBC % Saturation Unsat Iron Binding Total Bilirubin 0.3 AST 13 ALT 10 Alkaline Phosphatase 105 Troponin I High Sens B-Natriuretic Peptide Total Protein 6.3 L Albumin 3.9 Vitamin B12 Folate Stool Occult Blood Influenza Type A (PCR) Influenza Type B (PCR) RSV RNA Qual (PCR) SARS-CoV-2 RNA (RT-PCR) Blood Type Antibody Screen Crossmatch 07/19/21 07/19/21 07/19/21 10:57 10:57 10:57 WBC RBC Hgb Hct MCV MCH MCHC RDW Plt Count MPV Immature Gran % (Auto) Neut % (Auto) Lymph % (Auto) [place] % (Auto) Eos % (Auto) Baso % (Auto) Lymph # (Auto) [place] # (Auto) Eos # (Auto) Baso # (Auto) Abs Immat Gran (auto) Absolute Neuts (auto) Absolute Nucleated RBC Nucleated RBC % (auto) Smear Path Review PT INR Sodium Potassium Chloride Carbon Dioxide Anion Gap BUN Creatinine Estim Creat Clear Calc Estimated GFR Random Glucose Calcium Iron TIBC % Saturation Unsat Iron Binding Total Bilirubin AST ALT Alkaline Phosphatase Troponin I High Sens 5.1 B-Natriuretic Peptide 277 H Total Protein Albumin Vitamin B12 Folate Stool Occult Blood Influenza Type A (PCR) NEGATIVE Influenza Type B (PCR) NEGATIVE RSV RNA Qual (PCR) NEGATIVE SARS-CoV-2 RNA (RT-PCR) NEGATIVE Blood Type Antibody Screen Crossmatch 07/19/21 07/19/21 07/19/21 11:23 11:45 11:45 WBC RBC Hgb Hct MCV MCH MCHC RDW Plt Count MPV Immature Gran % (Auto) Neut % (Auto) Lymph % (Auto) [place] % (Auto) Eos % (Auto) Baso % (Auto) Lymph # (Auto) [place] # (Auto) Eos # (Auto) Baso # (Auto) Abs Immat Gran (auto) Absolute Neuts (auto) Absolute Nucleated RBC Nucleated RBC % (auto) Smear Path Review PT INR Sodium Potassium Chloride Carbon Dioxide Anion Gap BUN Creatinine Estim Creat Clear Calc Estimated GFR Random Glucose Calcium Iron 10 L TIBC 571 H % Saturation 2 L Unsat Iron Binding 561 Total Bilirubin AST ALT Alkaline Phosphatase Troponin I High Sens B-Natriuretic Peptide Total Protein Albumin Vitamin B12 Folate Stool Occult Blood NEGATIVE Influenza Type A (PCR) Influenza Type B (PCR) RSV RNA Qual (PCR) SARS-CoV-2 RNA (RT-PCR) Blood Type O Positive Antibody Screen NEGATIVE Crossmatch See Detail 07/20/21 07/20/21 05:32 05:32 WBC 7.8 RBC 3.73 L D Hgb 8.1 L D Hct 27.4 L D MCV 73.5 L D MCH 21.7 L MCHC 29.6 L RDW 24.5 H Plt Count 246 MPV 9.4 Immature Gran % (Auto) Neut % (Auto) Lymph % (Auto) [place] % (Auto) Eos % (Auto) Baso % (Auto) Lymph # (Auto) [place] # (Auto) Eos # (Auto) Baso # (Auto) Abs Immat Gran (auto) Absolute Neuts (auto) Absolute Nucleated RBC 0.020 H Nucleated RBC % (auto) 0.3 H Smear Path Review PT INR Sodium Potassium Chloride Carbon Dioxide Anion Gap BUN Creatinine Estim Creat Clear Calc Estimated GFR Random Glucose Calcium Iron TIBC % Saturation Unsat Iron Binding Total Bilirubin AST ALT Alkaline Phosphatase Troponin I High Sens B-Natriuretic Peptide Total Protein Albumin Vitamin B12 249 Folate 8.9 Stool Occult Blood Influenza Type A (PCR) Influenza Type B (PCR) RSV RNA Qual (PCR) SARS-CoV-2 RNA (RT-PCR) Blood Type Antibody Screen Crossmatch Assessment and Plan Final Anesthetic Review Family History of Problems with Anesthesia: No
--- NOTE | 2021-07-20 11:58 | HO.POSTANES ---
Post Anesthesia Evaluation Post Anesthesia Evaluation Vital Signs: Vital Signs Temp Pulse Resp BP Pulse Ox 07/20/21 11:48 79 07/20/21 11:39 98.1 F 79 18 136/83 99 07/20/21 11:21 97.6 F 79 20 128/68 99 07/20/21 11:06 97.6 F 91 16 99/54 L 97 07/20/21 09:50 98.5 F 73 15 163/80 H 100 07/20/21 08:30 83 07/20/21 07:24 98.6 F 66 18 138/77 99 07/20/21 03:26 97.8 F 72 16 119/59 L 96 07/20/21 00:00 96.8 F 95 16 168/76 H 95 Anesthesia: Monitored Mental Status: Awake Pain Control: Satisfactory Nausea/Vomiting: None Hydration: Adequate Anesthesia-Related Issues: No Anes. Related Issues
--- NOTE | 2021-07-20 13:06 | MHC.CM.PN ---
PT DISCHARGING HOME SELF-CARE W/RESUMP OF [facility] FOR TRANSPORT
--- NOTE | 2021-07-20 13:46 | P.CDIC_ITS ---
CDI Concurrent Query Documentation Clarification: PHYSICIAN'S DOCUMENTATION REQUEST Date of Query: 07/20/21 [id number] Patient Name: Soraida Felix Admit Date: 07/19/21 Dear Doctor, A review of the medical record indicates additional documentation may be needed. Please review below and update the documentation accordingly. Clinical Indicators: Verdana 4Bd Risk Factors/Clinical Indicators/Treatments Verdana 4d Shortness of breath H/H 4.8/18.6 transfusion 2 units RBCs Per H&P: Severe Anemia, likely GI source, slow bleed Based on the above, could you clarify in the Progress Notes which of the following is the most likely type of anemia you are evaluating, treating, and/or monitoring? * Acute blood loss anemia * Acute blood loss anemia with baseline chronic anemia (specify type) * Anemia of chronic disease- indicate if neoplastic disease, CKD, or other * Other ? please specify * Unable to determine Use of terms such as suspected, likely, concern for, or probable (associated with a specific diagnosis that is being evaluated, monitored, or treated as if it exists) are acceptable and can be coded in the inpatient setting, when documented at the time of discharge. Thank you, Marlen Dubose RN Extension: [phone] Please use your independent medical judgment in providing your response. THIS QUERY IS PART OF THE PERMANENT MEDICAL RECORD
--- NOTE | 2021-07-20 13:46 | MHC.CDI.CONC ---
CDI Concurrent Query Documentation Clarification: PHYSICIAN'S DOCUMENTATION REQUEST Date of Query: 07/20/21 [id number] Patient Name: Soraida Felix Admit Date: 07/19/21 Dear Doctor, A review of the medical record indicates additional documentation may be needed. Please review below and update the documentation accordingly. Clinical Indicators: Risk Factors/Clinical Indicators/Treatments Shortness of breath H/H 4.8/18.6 transfusion 2 units RBCs Per H&P: Severe Anemia, likely GI source, slow bleed Based on the above, could you clarify in the Progress Notes which of the following is the most likely type of anemia you are evaluating, treating, and/or monitoring? Acute blood loss anemia Acute blood loss anemia with baseline chronic anemia (specify type) Anemia of chronic disease- indicate if neoplastic disease, CKD, or other Other ? please specify Unable to determine Use of terms such as suspected, likely, concern for, or probable (associated with a specific diagnosis that is being evaluated, monitored, or treated as if it exists) are acceptable and can be coded in the inpatient setting, when documented at the time of discharge. Thank you, Marlen Dubose RN Extension: [phone] Please use your independent medical judgment in providing your response. THIS QUERY IS PART OF THE PERMANENT MEDICAL RECORD
[2021-07-22 23:02] LABS: Immunoglobulin A 168 mg/dL (47-310)
[2021-07-27 08:52] LABS: Transglutaminase IgA <1.0 U/mL
--- NOTE | 2021-07-30 14:22 | P.CDIR_ITS ---
Retrospective Query PHYSICIAN'S DOCUMENTATION REQUEST Date of Query: 07/30/21 1422 Patient Name: Soraida Felix Admit Date: 07/19/21 Dear Doctor, A review of the medical record indicates additional documentation may be needed. Please review below and update the documentation accordingly. Clinical Indicators: Verd[place] 4Bd Risk Factors/Clinical Indicators/Treatments Verdana 4d Shortness of breath H/H 4.8/18.6 transfusion 2 units RBCs Per H&P:Severe Anemia, likely GI source, slow bleed Based on the above, could you clarify in the Progress Notes which of the following is the most likely type of anemia you are evaluating, treating, and/or monitoring? * Acute blood loss anemia * Acute blood loss anemia with baseline chronic anemia (specify type) * Anemia of chronic disease- indicate if neoplastic disease, CKD, or other * Chronic iron deficiency anemia due to blood loss * Other ? please specify * Unable to determine Use of terms such as suspected, likely, concern for, or probable (associated with a specific diagnosis that is being evaluated, monitored, or treated as if it exists) are acceptable and can be coded in the inpatient setting, when documented at the time of discharge. Thank you, Marlen Dubose RN Extension: [phone] Please use your independent medical judgment in providing your response. THIS QUERY IS PART OF THE PERMANENT MEDICAL RECORD
--- NOTE | 2021-07-30 14:22 | MHC.CDI.RETR ---
Retrospective Query PHYSICIAN'S DOCUMENTATION REQUEST Date of Query: 07/30/21 1422 Patient Name: Soraida Felix Admit Date: 07/19/21 Dear Doctor, A review of the medical record indicates additional documentation may be needed. Please review below and update the documentation accordingly. Clinical Indicators: Risk Factors/Clinical Indicators/Treatments Shortness of breath H/H 4.8/18.6 transfusion 2 units RBCs Per H&P:Severe Anemia, likely GI source, slow bleed Based on the above, could you clarify in the Progress Notes which of the following is the most likely type of anemia you are evaluating, treating, and/or monitoring? Acute blood loss anemia Acute blood loss anemia with baseline chronic anemia (specify type) Anemia of chronic disease- indicate if neoplastic disease, CKD, or other Chronic iron deficiency anemia due to blood loss Other ? please specify Unable to determine Use of terms such as suspected, likely, concern for, or probable (associated with a specific diagnosis that is being evaluated, monitored, or treated as if it exists) are acceptable and can be coded in the inpatient setting, when documented at the time of discharge. Thank you, Marlen Dubose RN Extension: [phone] Please use your independent medical judgment in providing your response. THIS QUERY IS PART OF THE PERMANENT MEDICAL RECORD
--- NOTE | 2021-08-27 11:56 | P.CDIR_ITS ---
Documented by User: Marlen Dubose RN 08/27/21 11:58 Retrospective Query PHYSICIAN'S DOCUMENTATION REQUEST Date of Query: 08/27/21 1158 Patient Name: Soraida Felix Admit Date: 07/19/21 Dear Doctor, A review of the medical record indicates additional documentation may be needed. Please review below and update the documentation accordingly. Clinical Indicators: Ver[place] 4Bd Risk Factors/Clinical Indicators/Treatments Verdana 4d Shortness of breath, H/H 4.8/18.6, transfusion 2 units RBCs Per H&P:Severe Anemia, likely GI source, slow bleed Based on the above, could you clarify in the Progress Notes which of the following is the most likely type of anemia you are evaluating, treating, and/or monitoring? * Acute blood loss anemia * Acute blood loss anemia with baseline chronic anemia (specify type) * Anemia of chronic disease- indicate if neoplastic disease, CKD, or other * Other ? please specify * Unable to determine Use of terms such as suspected, likely, concern for, or probable (associated wit h a specific diagnosis that is being evaluated, monitored, or treated as if it exists) are acceptable and can be coded in the inpatient setting, when documented at the time of discharge. Thank you, Marlen Dubose RN Extension: [phone] Please use your independent medical judgment in providing your response. THIS QUERY IS PART OF THE PERMANENT MEDICAL RECORD Documented by User: Alvaro Winslow MD 09/16/21 11:26 Retrospective Query Provider Response: Acute Blood Loss Anemia
--- NOTE | 2021-08-27 11:56 | MHC.CDI.RETR ---
Documented by User: Marlen Dubose RN 08/27/21 11:58 Retrospective Query PHYSICIAN'S DOCUMENTATION REQUEST Date of Query: 08/27/21 1156 Patient Name: Soraida Felix Admit Date: 07/19/21 Dear Doctor, A review of the medical record indicates additional documentation may be needed. Please review below and update the documentation accordingly. Clinical Indicators: Risk Factors/Clinical Indicators/Treatments Shortness of breath, H/H 4.8/18.6, transfusion 2 units RBCs Per H&P:Severe Anemia, likely GI source, slow bleed Based on the above, could you clarify in the Progress Notes which of the following is the most likely type of anemia you are evaluating, treating, and/or monitoring? Acute blood loss anemia Acute blood loss anemia with baseline chronic anemia (specify type) Anemia of chronic disease- indicate if neoplastic disease, CKD, or other Other ? please specify Unable to determine Use of terms such as suspected, likely, concern for, or probable (associated with a specific diagnosis that is being evaluated, monitored, or treated as if it exists) are acceptable and can be coded in the inpatient setting, when documented at the time of discharge. Thank you, Marlen Dubose RN Extension: [phone] Please use your independent medical judgment in providing your response. THIS QUERY IS PART OF THE PERMANENT MEDICAL RECORD Documented by User: Alvaro Winslow MD 09/16/21 11:26 Retrospective Query Provider Response: Acute Blood Loss Anemia
== END 2021-07-20 15:39 | disposition home or self-care (01) | DRG 241 ==
LOC: HO.ED 10:22 → HO.EDOVER 12:32 → HO.S3 17:22
PROVIDERS: Internal Medicine Gastroenterology; Admitting Provider Internal Medicine; Emergency Provider Emergency Medicine; PCP Internal Medicine; Visit Provider Internal Medicine
PROC: 0DJ08ZZ Inspection of Upper Intestinal Tract, Via Natural or Artificial Opening Endoscopic (ICD-10-PCS; CPT 43235; principal; 2021-07-20 14:00)
DX: K25.9 Gastric ulcer, unspecified as acute or chronic, without hemorrhage or perforation (principal); D62 Acute posthemorrhagic anemia; F17.210 Nicotine dependence, cigarettes, uncomplicated; J44.9 Chronic obstructive pulmonary disease, unspecified; I10 Essential (primary) hypertension; K21.9 Gastro-esophageal reflux disease without esophagitis; K44.9 Diaphragmatic hernia without obstruction or gangrene; K29.80 Duodenitis without bleeding; Z20.822 Contact with and (suspected) exposure to COVID-19; Z71.6 Tobacco abuse counseling; Z88.6 Allergy status to analgesic agent; Z79.1 Long term (current) use of non-steroidal anti-inflammatories (NSAID); Z79.02 Long term (current) use of antithrombotics/antiplatelets; Z79.899 Other long term (current) drug therapy
CPT/HCPCS: 43239; 0241U; 36415; 36430; 70450; 71045; 80053; 82272; 82607; 82746; 82784; 83516; 83540; 83880; 84484; 85025; 85027; 85610; 86850; 86900; 86901; 86923; 88305; 88342; 93005; 94640; 96374; 99218; 99285; 99291; J2930; P9016

== ENCOUNTER 2021-07-28 08:02 | Outpatient (REF) | payer OTHER, SELFPAY ==
--- NOTE | ~2021-07-28 | XR_ITS ---
EXAMINATION: XR TIBIA AND FIBULA, RIGHT CLINICAL INFORMATION: Other specified disorders of bone, lower leg. COMPARISON: None TECHNIQUE: AP and lateral views of the right tibia and fibula were obtained. FINDINGS: There is diffuse osteopenia. There is no fracture or malalignment. The right knee and right ankle are unremarkable. There are a few scattered soft tissue calcifications which may be vascular. XR/XR tibia fibula RT 2V IMPRESSION: Osteopenia. Scattered vascular calcifications. Otherwise, no acute abnormality.
== END 2021-07-28 08:03 | disposition home or self-care (01) ==
LOC: HO.HOSX 08:02
PROVIDERS: PCP Internal Medicine; Visit Provider Physician Assistant
DX: M89.8X6 Other specified disorders of bone, lower leg (principal); S82.101A Unspecified fracture of upper end of right tibia, initial encounter for closed fracture; W01.0XXA Fall on same level from slipping, tripping and stumbling without subsequent striking against object, initial encounter; Y93.K1 Activity, walking an animal; Y92.9 Unspecified place or not applicable; Y99.8 Other external cause status; F17.290 Nicotine dependence, other tobacco product, uncomplicated; Z81.4 Family history of other substance abuse and dependence; Z88.6 Allergy status to analgesic agent
CPT/HCPCS: 73590; 99202

== ENCOUNTER 2021-08-17 12:53 | Outpatient (REF) | payer OTHER, SELFPAY ==
[2021-08-17 14:23] LABS: MANUAL DIFF FLAG NO
[2021-08-17 15:11] LABS: Basophils Percent Auto 0.3 % (0-2); Eosinophils Absolute Auto 0.1 X10*3/uL (0.0-0.4); Eosinophils Percent Auto 1.4 % (0-4); Hematocrit 40.4 % (37.0-47.0); Hemoglobin 12.2 g/dl (12.0-16.0); Imm Gran Abs Auto 0.02 X10*3/uL (0.00-0.03); Imm Gran Pct Auto 0.3 % (0.0-0.4); Lymphocytes Absolute Auto 1.7 X10*3/uL (1.2-4.9); Lymphocytes Percent Auto 29.4 % (20-40); Mean Corpuscular HGB Conc 30.2 g/dl (31.0-35.0); Mean Corpuscular Hemoglobin 26.4 pg (27.0-33.0); Mean Corpuscular Volume 87.4 fL (80.0-98.0); Mean Platelet Volume 8.5 fL (9.4-12.3); Monocytes Absolute Auto 0.4 X10*3/uL (0.1-1.2); Monocytes Percent Auto 7.3 % (2-11); Neutrophils Absolute Auto 3.5 x10*3/uL (2.0-8.3); Neutrophils Percent Auto 61.3 % (45-73); Platelet Count 289 X10*3/uL (160-400); Red Blood Count 4.62 X10*6/uL (4.20-5.50); White Blood Count 5.8 X10*3/uL (4.8-10.8)
== END 2021-08-17 12:54 | disposition home or self-care (01) ==
LOC: HO.LAB 12:53
PROVIDERS: PCP Internal Medicine; Referring Provider Internal Medicine; Visit Provider Nurse Practitioner
DX: K25.9 Gastric ulcer, unspecified as acute or chronic, without hemorrhage or perforation (principal); D64.9 Anemia, unspecified; J44.9 Chronic obstructive pulmonary disease, unspecified; D12.6 Benign neoplasm of colon, unspecified; Z80.0 Family history of malignant neoplasm of digestive organs
CPT/HCPCS: 36415; 85025; 99212

== ENCOUNTER → 2021-08-25 09:25 | Outpatient (BNVA) | payer OTHER, SELFPAY | PROVIDERS: PCP Internal Medicine; Referring Provider Internal Medicine; Visit Provider Surgery | DX: L98.9 Disorder of the skin and subcutaneous tissue, unspecified (principal) | CPT/HCPCS: 99202 ==

== ENCOUNTER 2021-10-28 09:00 | Outpatient (REF) | payer OTHER, SELFPAY | END 2021-10-28 09:01 | disposition home or self-care (01) | LOC: HO.LAB 09:00 | PROVIDERS: PCP Internal Medicine; Referring Provider Internal Medicine; Visit Provider Surgery | DX: L98.9 Disorder of the skin and subcutaneous tissue, unspecified (principal) | CPT/HCPCS: 11403; 88305; 99212 ==

== ENCOUNTER → 2021-11-10 09:00 | Outpatient (BNVA) | payer OTHER, SELFPAY | PROVIDERS: PCP Internal Medicine; Referring Provider Internal Medicine; Visit Provider Surgery | DX: Z48.817 Encounter for surgical aftercare following surgery on the skin and subcutaneous tissue (principal); L98.9 Disorder of the skin and subcutaneous tissue, unspecified | CPT/HCPCS: 99212 ==

== ENCOUNTER 2021-12-09 10:15 | Day surgery (SDC) | payer OTHER, SELFPAY ==
--- NOTE | 2021-12-08 12:05 | P.CONAN_ITS ---
Documented by User: Jaquelin Lowery NP 12/20/21 14:31 HPI - Anesthesia Eval Consult details Narrative: 61yo F for Colonoscopy s/p EGD 07/2021 with MAC Plavix s/p bilateral femoral endarterectomy 2019 [facility] Active Problems Active Problems: All Active Problems (Updated 08/25/21 @ 10:21 by Johnathan Alexander MD) Skin lesion of back (Acute) Family history of colon cancer (Acute) Tubular adenoma of colon (Acute) Immunization declined (Acute) Fracture of proximal end of fibula (Acute) Gastritis (Acute) Duodenitis (Acute) Pyloric ulcer (Acute) Contusion of leg, right (Acute) Myopia of both eyes (Acute) Vaccination declined by patient (Acute) Papanicolaou smear declined (Acute) Mammogram declined (Acute) Anemia (Acute) Pulmonary nodules (Acute) Smoker unmotivated to quit (Acute) Restless leg syndrome (Acute) Aortoiliac occlusive disease (Acute) COPD (chronic obstructive pulmonary disease) (Acute) Fibromyalgia (Acute) Peripheral vascular disease (Acute) Osteoporosis (Acute) Past Medical History Medical History Anemia Aortoiliac occlusive disease Chronic Helicobacter pylori gastritis Colonoscopy refused COPD (chronic obstructive pulmonary disease) Duodenitis Fibromyalgia Gastritis GERD (gastroesophageal reflux disease) History of alcohol abuse History of tachycardia Immunization declined Mammogram declined Myopia of both eyes Osteoporosis Papanicolaou smear declined Peripheral vascular disease Pyloric ulcer Restless leg syndrome Skin lesion of back Smoker unmotivated to quit Tubular adenoma of colon Vaccination declined by patient Family History Family History Father Substance use disorder Mother Substance use disorder Brother Substance use disorder Sister Substance use disorder Sister Substance use disorder Brother Substance use disorder Family history of problems with anesthesia: No Surgical History Surgical History History of ankle surgery (~11/2011) History of appendectomy History of endarterectomy (~05/2020) History of exploratory thoracotomy (~04/2018) History of lung biopsy (~04/2021) History of myringotomy History of surgery on lower extremity History of surgical removal of lesion (~10/28/21) History of tonsillectomy History of tubal ligation Hx of foot surgery Social History Social History Household Members: None Housing: House Housing Other:: mobile home Do you presently have visiting nurse or other home services: No Unable to assess alcohol history related to: Unknown Alcohol intake: former Patient Tobacco Use Status: Current everyday Tobacco user Tobacco use type: Cigarette Cigarette Packs Per Day: 1 Cigarettes Per Day: 20.0 e-Cigarette/Vaping Use: Never Used Second Hand Smoke Exposure: Yes Advance Directives Date on File: 07/19/21 service: No Current occupational status: disabled Current occupation: rt handed Current occupational exposures/hazards: No Meds Allergies Allergy/AdvReac Type Severity Reaction Status Date / Time acetaminophen [From Tylenol] AdvReac Mild Nausea Verified 12/09/21 10:30 aspirin AdvReac Mild Vomiting Verified 12/09/21 10:30 Home Medications Medication Instructions Recorded Confirmed Last Taken Type clopidogrel 75 mg tablet 75 mg PO DAILY 11/03/20 12/03/21 12/02/21 History Exam Exam Date and Time: December 08, 2021 1205 Pertinent Lab Results Pertinent Lab Results: Laboratory Tests 07/19/21 08/17/21 10:57 14:21 WBC 5.8 Hgb 12.2 D Hct 40.4 D Plt Count 289 Sodium 137 Potassium 4.7 Chloride 108 Carbon Dioxide 20 L BUN 11 Creatinine 0.61 Narrative Narrative: EKG 07/2021 Vent. Rate : 081 BPM ? ? Atrial Rate : 081 BPM ?? P-R Int : 106 ms? QRS Dur : 068 ms ? ? QT Int : 350 ms ? ? ? P-R-T Axes : 081 068 077 degrees ?? QTc Int : 406 ms ? Sinus rhythm with short HI Nonspecific ST abnormality Abnormal ECG When compared with ECG of 28-FEB-2019 16:13, No significant change was found Assessment and Plan Assessment Anesthesia Assessment: Chart Reviewed Final Anesthetic Review Family History of Problems with Anesthesia: No Documented by User: Nely Ochoa MD 12/09/21 11:35 HPI - Anesthesia Eval Consult details Narrative: 61yo F for Colonoscopy s/p EGD 07/2021 with MAC Plavix s/p bilateral femoral endarterectomy 2019 plavix on hold for a week . [facility] Past Medical History Medical History Anemia Aortoiliac occlusive disease Chronic Helicobacter pylori gastritis Colonoscopy refused COPD (chronic obstructive pulmonary disease) Duodenitis Fibromyalgia Gastritis GERD (gastroesophageal reflux disease) History of alcohol abuse History of tachycardia Immunization declined Mammogram declined Myopia of both eyes Osteoporosis Papanicolaou smear declined Peripheral vascular disease Pyloric ulcer Restless leg syndrome Skin lesion of back Smoker unmotivated to quit Tubular adenoma of colon Vaccination declined by patient Functional capacity: uses cane/walker Family History Family History Father Substance use disorder Mother Substance use disorder Brother Substance use disorder Sister Substance use disorder Sister Substance use disorder Brother Substance use disorder Surgical History Surgical History History of ankle surgery (~11/2011) History of appendectomy History of endarterectomy (~05/2020) History of exploratory thoracotomy (~04/2018) History of lung biopsy (~04/2021) History of myringotomy History of surgery on lower extremity History of surgical removal of lesion (~10/28/21) History of tonsillectomy History of tubal ligation Hx of foot surgery History of Problems with Anesthesia: No Social History Social History Household Members: None Housing: House Housing Other:: mobile home Do you presently have visiting nurse or other home services: No Unable to assess alcohol history related to: Unknown Alcohol intake: former Patient Tobacco Use Status: Current everyday Tobacco user Tobacco use type: Cigarette Cigarette Packs Per Day: 1 Cigarettes Per Day: 20.0 e-Cigarette/Vaping Use: Never Used Second Hand Smoke Exposure: Yes Advance Directives Date on File: 07/19/21 service: No Current occupational status: disabled Current occupation: rt handed Current occupational exposures/hazards: No Meds Allergies Allergy/AdvReac Type Severity Reaction Status Date / Time acetaminophen [From Tylenol] AdvReac Mild Nausea Verified 12/09/21 10:30 aspirin AdvReac Mild Vomiting Verified 12/09/21 10:30 Home Medications Medication Instructions Recorded Confirmed Last Taken Type clopidogrel 75 mg tablet 75 mg PO DAILY 11/03/20 12/03/21 12/02/21 History Exam Airway Mallampati Class: II Denture: Upper Assessment and Plan Assessment Anesthesia Assessment: Anesthesia Plan Discussed Final Anesthetic Review History of Problems with Anesthesia: No NPO: Yes ASA Class: III Final Preanesthetic Review: Meds/Allgs Chart Reviewed, Consent Obtained/Reviewed and Anes Risks/Benef Reviewed Patient Risk: High Procedure Risk: Intermediate Anesthetic Plan Anesthetic Plan: MAC: Disposition: Standard PACU
[2021-12-09 10:30] VITALS: BMI 17.9
[2021-12-09 10:55] VITALS: BP 163/95; PULSE 77; RESP 18; TEMP 36.3; O2SAT 97
[2021-12-09] MEDS: Albuterol Sulfate (0.083%) 2.5 MG/3 ML VIAL.NEB INHALE (11:05)
[2021-12-09 11:07] VITALS: PULSE 66; RESP 16; O2SAT 97
[2021-12-09] MEDS: Lactated Ringers 1,000 ML 100 ML IVCONT (11:07)
--- NOTE | 2021-12-09 11:25 | P.HPSUR_ITS ---
Pre-Procedural Eval Section A Date of Service: 12/09/21 Section B Chief Complaint: benign neoplasm of colon Details of Present Illness: Brother had CRC aged 48 Relevant Family History (Specify if Yes): Yes Relevant Social History: Tobacco Use Present Medications: see Short Stay Collaborative assessment Medical History: Significant History (Anemia Aortoiliac occlusive disease Chr onic Helicobacter pylori gastritis Colonoscopy refused COPD (chronic obstructive pulmonary disease) Duodenitis Fibromyalgia Gastritis History of alcohol abuse Immunization declined Mammogram declined Myopia of both eyes Osteoporosis Papanicolaou smear declined ) History of Previous Operations: Relevant previous surgery/procedure and date(s) (History of ankle surgery (~11/2011) History of appendectomy History of endarterectomy (~05/2020) History of exploratory thoracotomy (~04/2018) History of lung biopsy (~04/2021) History of myringotomy History of surgical removal of lesion (~10/28/21) History of tonsillectomy History of tubal ligation) Allergies: Allergies Allergy/AdvReac Type Severity Reaction Status Date / Time acetaminophen [From Tylenol] AdvReac Mild Nausea Verified 12/09/21 10:30 aspirin AdvReac Mild Vomiting Verified 12/09/21 10:30 Review of Systems Sugical H&P ROS: Negative: Constitution, Cardiovascular, Respiratory, Neurological, Psychiatric, Hem-Onc, Allergic/Immunologic, Gastrointestinal, Genitourinary, Musculoskeletal, Integumentary, Endocrine and Eyes/Ears/Nose/Throat Exam Surgical H&P Exam: Normal: HEENT, Normal: Heart, Normal: Lungs, Normal: Extremities, Normal: Abdomen, Normal: Skin and Normal: Neurological Plan Diagnosis/Plan: Unchanged I have reviewed the history and physical and performed a pertinent physical examination on my patient. No changes have occurred unless specified.
--- NOTE | 2021-12-09 11:27 | P.BOP_ITS ---
Brief Operative Note Date of Service: 12/09/21 Pre-op diagnosis: anemia Post-op diagnosis: same Procedure: see op note Surgeon: Corby Pascal MD Anesthesia: MAC Was an Sales Service Promoter used for this Procedure?: No Estimated blood loss (mL): 0 Condition: stable Disposition: PACU
--- NOTE | 2021-12-09 11:27 | W.PM.OPN ---
Operative Note Operative Note Date of Service: 12/09/21 Narrative: Operative Information Procedure Description: Colonoscopy Indication: anemia, FH of cRC Anesthesia: MAC COLONOSCOPY Instrument: Olympus variable stiffness pediatric scope 190L Colonoscopy Monitoring: Vital signs and clinical assessment, continuous EKG monitoring, Pulse oximetry, Carbon Dioxide monitoring and blood pressure monitoring were done throughout the procedure. Colon withdrawal time was 25 minutes. Procedure: The patient was placed in the left lateral decubitis position and pre-procedure medications were administered. After a digital rectal examination of the ano-rectum, the video colonoscope was inserted into the rectum and advanced through the colon to the cecum/TI. The colonoscope was slowly withdrawn in a retrograde panoramic fashion and the colon mucosa was carefully examined including a retroflexed view of the rectum. Findings and interventions are described below. Procedure Difficulty: moderate due to looping Findings: Terminal Ileum-normal Cecum:normal Ascending Colon: x 1 sessile polyp removed with cold snare 10 mm in size Transverse Colon - x 1 sessile polyp 8-9 mm removed with cold snare Descending Colon: x 3 sessile polyps 10-11 mm removed with cold snare Sigmoid Colon: x 2 sessile polyps 8-10 mm removed with cold snare Rectum: Retroflexion with small internal hemorrhoids, grade I, x 2 sessile polyps 10-12 mm removed with cold snare Note: Not all polyps were retrieved due to lots of debris and particulate matter scattered thru out colon Anorectum - normal Colon preparation: Solomon Bowel Preparation Scale Right colon; 2 Transverse colon: 1 Left colon; 1-2 (0 = Unprepared colon segment with mucosa not seen due to solid stool that cannot be cleared. 1 = Portion of mucosa of the colon segment seen, but other areas of the colon segment not well seen due to staining, residual stool and/or opaque liquid. 2 = Minor amount of residual staining, small fragments of stool and/or opaque liquid, but mucosa of colon segment seen well. 3 = Entire mucosa of colon segment seen well with no residual staining, small fragments of stool or opaque liquid) Impression and Post Procedure Diagnosis: polyps internal hemorrhoids Plan: High fiber diet leaflet Avoid straining at stool, epsom salts and sitz bath, anusol supps or cream Repeat Colonoscopy in 1 years or earlier if clinically indicated, next time avoid nuts and corn, salads, for 5 days prior can restart plavix tomorrow Above findings were reviewed with the patient and relevant handouts were provided if indicated.
--- NOTE | 2021-12-09 12:11 | HO.ANESPROP2 ---
[facility] Active Problems Active Problems: All Active Problems (Updated 12/09/21 @ 10:40 by Lianne Corado RN) Pulmonary nodules (Acute) Contusion of leg, right (Acute) Fracture of proximal end of fibula (Acute) Tubular adenoma of colon (Acute) Family history of colon cancer (Acute) Skin lesion of back (Acute) Immunization declined (Acute) Gastritis (Acute) Duodenitis (Acute) Pyloric ulcer (Acute) Myopia of both eyes (Acute) Vaccination declined by patient (Acute) Papanicolaou smear declined (Acute) Mammogram declined (Acute) Anemia (Acute) Smoker unmotivated to quit (Acute) Restless leg syndrome (Acute) Aortoiliac occlusive disease (Acute) COPD (chronic obstructive pulmonary disease) (Acute) Fibromyalgia (Acute) Peripheral vascular disease (Acute) Osteoporosis (Acute) Past Medical History Medical History Anemia Aortoiliac occlusive disease Chronic Helicobacter pylori gastritis Colonoscopy refused COPD (chronic obstructive pulmonary disease) Duodenitis Fibromyalgia Gastritis GERD (gastroesophageal reflux disease) History of alcohol abuse History of tachycardia Immunization declined Mammogram declined Myopia of both eyes Osteoporosis Papanicolaou smear declined Peripheral vascular disease Pyloric ulcer Restless leg syndrome Skin lesion of back Smoker unmotivated to quit Tubular adenoma of colon Vaccination declined by patient Functional capacity: independent ambulation Patient : No Family History Family History Father Substance use disorder Mother Substance use disorder Brother Substance use disorder Sister Substance use disorder Sister Substance use disorder Brother Substance use disorder Family history of problems with anesthesia: No Surgical History Surgical History History of ankle surgery (~11/2011) History of appendectomy History of endarterectomy (~05/2020) History of exploratory thoracotomy (~04/2018) History of lung biopsy (~04/2021) History of myringotomy History of surgery on lower extremity History of surgical removal of lesion (~10/28/21) History of tonsillectomy History of tubal ligation Hx of foot surgery History of Problems with Anesthesia: No Social History Social History Household Members: None Housing: House Housing Other:: mobile home Do you presently have visiting nurse or other home services: No Unable to assess alcohol history related to: Unknown Alcohol intake: former Patient Tobacco Use Status: Current everyday Tobacco user Tobacco use type: Cigarette Cigarette Packs Per Day: 1 Cigarettes Per Day: 20.0 e-Cigarette/Vaping Use: Never Used Second Hand Smoke Exposure: Yes Use of substances other than those prescribed or required for medical reasons: No Are you DNR?: No Advance Directives: Yes Advance Directives on File: Yes Advance Directives Date on File: 07/19/21 service: No Current occupational status: disabled Current occupation: rt handed Current occupational exposures/hazards: No Meds Allergies Allergy/AdvReac Type Severity Reaction Status Date / Time acetaminophen [From Tylenol] AdvReac Mild Nausea Verified 12/09/21 10:30 aspirin AdvReac Mild Vomiting Verified 12/09/21 10:30 Active Medications: Current Medications Albuterol Sulfate (Albuterol Sulfate (0.083%) 2.5 Mg/3 Ml Vial.Neb) 2.5 mg INHALE ONCE PRN PRN Reason: Shortness of Breath/Wheezing Last Admin: 12/09/21 11:05 Dose: 2.5 mg Documented by: Lactated Ringer's (Lr) 1,000 mls @ 100 mls/hr IVCONT .Q10H BILL Last Admin: 12/09/21 11:07 Dose: 100 mls/hr Documented by: Home Medications Medication Instructions Recorded Confirmed Last Taken Type clopidogrel 75 mg tablet 75 mg PO DAILY 11/03/20 12/03/21 12/02/21 History Exam Exam Date and Time: December 09, 2021 1211 Height,Weight and Vital Signs: Height 5 ft 1 in Weight 43.091 kg Last Vital Signs Temp 97.3 F 12/09/21 10:55 Pulse 66 12/09/21 11:07 Resp 16 12/09/21 11:07 BP 163/95 H 12/09/21 10:55 Pulse Ox 97 12/09/21 10:55 Airway Mallampati Class: II (I) TM Dist: >3cm Neck ROM: Full Heart: RRR Lungs: CTA Assessment and Plan Final Anesthetic Review Family History of Problems with Anesthesia: No History of Problems with Anesthesia: No ASA Class: III Final Preanesthetic Review: No Changes in Pt Med Stat, Meds/Allgs Chart Reviewed, Consent Obtained/Reviewed, Anes Risks/Benef Reviewed and DNR Form (If Appl.) Patient Risk: Low Procedure Risk: Low Anesthetic Plan Anesthetic Plan: MAC: Disposition: Standard PACU
[2021-12-09 12:40] VITALS: BP 128/68; PULSE 84; RESP 16; TEMP 36.5; O2SAT 96
[2021-12-09 12:55] VITALS: BP 124/70; PULSE 80; RESP 16; TEMP 36.3; O2SAT 98
== END 2021-12-09 13:20 | disposition home or self-care (01) ==
PROVIDERS: PCP Internal Medicine; Visit Provider Internal Medicine Gastroenterology
PROC: 0DJD8ZZ Inspection of Lower Intestinal Tract, Via Natural or Artificial Opening Endoscopic (ICD-10-PCS; CPT 45378; principal; 2021-12-09 11:50)
DX: D64.9 Anemia, unspecified (principal); Z86.010 Personal history of colon polyps; Z80.0 Family history of malignant neoplasm of digestive organs; D12.8 Benign neoplasm of rectum; K63.5 Polyp of colon; J44.9 Chronic obstructive pulmonary disease, unspecified; K64.0 First degree hemorrhoids; M81.0 Age-related osteoporosis without current pathological fracture; M79.7 Fibromyalgia; I73.9 Peripheral vascular disease, unspecified; K21.9 Gastro-esophageal reflux disease without esophagitis; Z86.19 Personal history of other infectious and parasitic diseases; Z86.718 Personal history of other venous thrombosis and embolism; Z95.828 Presence of other vascular implants and grafts; Z88.8 Allergy status to other drugs, medicaments and biological substances
CPT/HCPCS: 45385; 88305; 94640

== ENCOUNTER → 2022-01-05 08:43 | Outpatient (BNVA) | payer OTHER, SELFPAY | PROVIDERS: PCP Internal Medicine; Visit Provider Internal Medicine | DX: Z13.89 Encounter for screening for other disorder (principal) ==

== ENCOUNTER 2022-01-11 07:48 | Outpatient (REF) | payer OTHER, SELFPAY ==
[2022-01-11 11:55] LABS: Albumin Level 4.3 g/dL (3.5-5.0); Phosphorus 4.7 mg/dL (2.7-4.5)
[2022-01-11 12:24] LABS: Free T4 (Free Thyroxine) 0.86 ng/dL (0.71-1.85); Thyroid Stimulating Hormone 1.93 uIU/mL (0.32-4.0); Vitamin D 25-OH Total 25.3 ng/mL (>30)
[2022-01-13 13:12] LABS: PTHI 34 pg/mL (16-77)
[2022-01-14 15:06] LABS: Prot Elec - Albumin 4.2 g/dL (3.8-4.8); Prot Elec - Alpha1 0.3 g/dL (0.2-0.3); Prot Elec - Alpha2 0.9 g/dL (0.5-0.9); Prot Elec - Beta 1 0.4 g/dL (0.4-0.6); Prot Elec - Beta 2 0.3 g/dL (0.2-0.5); Prot Elec - Gamma 0.6 g/dL (0.8-1.7); Prot Elec - Total Protein 6.7 g/dL (6.1-8.1)
[2022-01-14 16:02] LABS: Alkaline Phosphatase Bone 14.8 mcg/L (5.6-29.0)
== END 2022-01-11 07:49 | disposition home or self-care (01) ==
LOC: HO.HMGCLDS 07:48
PROVIDERS: PCP Internal Medicine; Visit Provider Internal Medicine
DX: M81.0 Age-related osteoporosis without current pathological fracture (principal); E55.9 Vitamin D deficiency, unspecified
CPT/HCPCS: 36415; 82040; 82306; 83970; 84075; 84100; 84165; 84439; 84443

== ENCOUNTER 2022-01-14 07:14 | Outpatient (REF) | payer OTHER, SELFPAY ==
[2022-01-19 09:42] LABS: N-Telopeptide 64 (see note); NTXCreaRU 96 mg/dL (20-275)
== END 2022-01-14 07:15 | disposition home or self-care (01) ==
LOC: HO.HMGCLNP 07:14
PROVIDERS: Visit Provider Internal Medicine
DX: M81.0 Age-related osteoporosis without current pathological fracture (principal)
CPT/HCPCS: 82523

== ENCOUNTER 2022-01-19 08:56 | Outpatient (REF) | payer OTHER, SELFPAY ==
--- NOTE | ~2022-01-19 | MM_ITS ---
EXAMINATION: BONE DENSITOMETRY CLINICAL INDICATION: Age-related osteoporosis without current pathological fracture. COMPARISON: Previous BD dated 10/22/2015 and baseline BD dated 05/12/2011. TECHNIQUE: Using a [employer] DXA System (software version: 13.1) manufactured by [employer], dual-energy x-ray absorptiometry was performed of the lumbar spine and left hip. The images are of good technical quality. Summary results are attached. FINDINGS: AP SPINE L1-L3 (excluding L4): The data of L1-L4 has been changed to exclude the L4 vertebral body, because degenerative sclerosis at this level may cause overestimation of lumbar spine density. Current: BMD 0.630 g/cm2, Z-score -2.6, T-score -4.5, osteoporosis, 10.0% decrease from previous, 26.6% decrease from baseline (<5% change is not significant). Prior: BMD 0.700 g/cm2. Baseline: BMD 0.858 g/cm2. LEFT FEMUR, NECK: Current: BMD 0.479 g/cm2, Z-score -2.3, T-score -4.0, osteoporosis. Prior: BMD 0.604 g/cm2. Baseline: BMD 0.690 g/cm2. LEFT FEMUR, TOTAL: Current: BMD 0.457 g/cm2, Z-score -2.9, T-score -4.4, osteoporosis, 15.7% decrease from previous, 32.9% decrease from baseline (<5% change is not significant). Prior: BMD 0.542 g/cm2. Baseline: BMD 0.681 g/cm2. IDENTIFIED RISK FACTORS: Osteoporosis, tobacco use (current smoker), low calcium intake, history of fracture (adult). Early menopause, secondary osteoporosis, low body weight. HISTORY OF FRACTURE: Other. MEDICATIONS: None listed. MM/XR DEXA axial skeleton IMPRESSION: 1. DIAGNOSIS: Osteoporosis based on the lowest T-score value of -4.5 in the lumbar spine applying World Health Organization criteria. 2. 10-YEAR FRACTURE RISK PREDICTION, FRAX: Major osteoporotic fracture (clinical spine, forearm, hip or shoulder) 43.9%. Hip fracture 31.5%. 3. Treatment Recommendations: NOF guidelines recommend consideration for treatment in postmenopausal women and men age 50 and older presenting with the following: -A hip or vertebral (clinical or morphometric) fracture. -T-score less than or equal to -2.5 at the femoral neck or spine after appropriate evaluation to exclude secondary causes. -Low bone mass at the hip or spine and a 10-year fracture probability by FRAX of greater than or equal to 3% for hip fracture or greater than or equal to 20% for major osteoporotic fracture based on the [place] adapted WHO algorithm. 4. Other Recommendations: All treatment decisions require clinical judgment and consideration of individual patient factors, including patient preferences, comorbidities, previous drug use, risk factors not captured in the FRAX model (e.g. frailty, falls, vitamin D deficiency, increased bone turnover, interval significant decline in bone density) and possible under or overestimation of fracture risk by FRAX. Additional medical evaluation for secondary cause of low bone mineral density may be appropriate. FUTURE SCAN RECOMMENDATION: People with diagnosed cases of osteoporosis or at high risk for fracture should have regular bone mineral density tests. For patients eligible for Medicare, routine testing is allowed once every 2 years. The testing frequency can be increased to one year for patients who have rapidly progressing disease, those who are receiving or discontinuing medical therapy to restore bone mass, or have additional risk factors.
[2022-01-19 10:04] LABS: Hematocrit 44.3 % (37.0-47.0); Hemoglobin 14.1 g/dl (12.0-16.0); Mean Corpuscular HGB Conc 31.8 g/dl (31.0-35.0); Mean Corpuscular Hemoglobin 28.9 pg (27.0-33.0); Mean Corpuscular Volume 90.8 fL (80.0-98.0); Mean Platelet Volume 8.3 fL (9.4-12.3); Platelet Count 248 X10*3/uL (160-400); Red Blood Count 4.88 X10*6/uL (4.20-5.50); Red Cell Distribution Width 17.6 % (11.0-16.0); White Blood Count 5.6 X10*3/uL (4.8-10.8)
[2022-01-19 10:13] LABS: INTERNATIONAL NORM RATIO 0.9 (0.9-1.1); Prothrombin Time 10.6 SEC (9.9-13.0)
[2022-01-19 10:30] LABS: Anion Gap 13 (12-20); Blood Urea Nitrogen 13 mg/dL (9-16); Carbon Dioxide 25 mmol/L (22-29); Chloride 103 mmol/L (96-108); Estimated Glomerular Filt Rate > 60; Potassium 4.8 mmol/L (3.3-5.1); Sodium 136 mmol/L (135-145)
== END 2022-01-19 08:57 | disposition home or self-care (01) ==
LOC: HO.MAMMO 08:56
PROVIDERS: Absent Provider Surgery Vascular Surgery; PCP Internal Medicine; Visit Provider Internal Medicine
DX: M81.0 Age-related osteoporosis without current pathological fracture (principal); Z78.0 Asymptomatic menopausal state; I73.9 Peripheral vascular disease, unspecified; F17.210 Nicotine dependence, cigarettes, uncomplicated
CPT/HCPCS: 36415; 77080; 80051; 82565; 84520; 85027; 85610

== ENCOUNTER 2022-03-23 08:45 | Outpatient (REF) | payer OTHER, SELFPAY ==
--- NOTE | ~2022-03-23 | US_ITS ---
EXAMINATION: US THYROID CLINICAL INFORMATION: Nontoxic goiter, unspecified. COMPARISON: None TECHNIQUE: Linear transducer grayscale and color Doppler examination with attention to the region of the thyroid. FINDINGS: SIZE: Measurements of the thyroid lobes and nodules are given in sagittal, anteroposterior and transverse dimensions respectively. Right Thyroid Lobe: 4.4 x 1.6 x 1.2 cm, volume 4.4 mL. Parenchyma: The gland echotexture is homogeneous. Thyroid vascularity is normal. Left Thyroid Lobe: 3.5 x 1.2 x 1.2 cm, volume 2.6 mL. Parenchyma: The gland echotexture is homogeneous. Thyroid vascularity is normal. Isthmus: 0.2 cm in maximum AP dimension. Estimated total number of nodules greater than or equal to 1 cm: 0. Consumer Marketing Manager nodules are described as follows: 1. Location: Right mid pole. Size: 0.7 x 0.4 x 0.6 cm, volume 0.08 mL. Nodule characteristics: Composition: Cystic(0). ACR TI-RADS total points: 0 ACR TI-RADS category: 1 NODES: No lymphadenopathy is seen in the tissue surrounding the thyroid gland. US/US thyroid IMPRESSION: Normal size thyroid gland. Solitary small cystic right thyroid nodule. ACR TI-RADS RECOMMENDATION REFERENCE: Ultrasound-guided fine-needle aspiration, followup ultrasound, no further follow up. * TR1 (0 point) and TR 2 (2 points): No FNA or follow up * TR3 (3 points): FNA if more than or equal to 2.5 cm in maximum dimension, followup ultrasound in 1, 3 and 5 years if 1.5 to 2.4 cm in maximum dimension. * TR4 (4-6 points): FNA if more than or equal to 1.5 cm in maximum dimension, followup ultrasound in 1, 2, 3 and 5 years if 1 to 1.4 cm in maximum dimension. * TR5 (more than or equal to 7 points): FNA if more than or equal to 1 cm in maximum dimension, followup ultrasound every year for 5 years if 0.5 to 0.9 cm in maximum dimension. * TR3, TR4 or TR5 nodules that are below the size threshold for follow up receive no follow up.
== END 2022-03-23 08:46 | disposition home or self-care (01) ==
LOC: HO.HMGCX 08:45
PROVIDERS: Visit Provider Internal Medicine
DX: E04.9 Nontoxic goiter, unspecified (principal)
CPT/HCPCS: 76536

== ENCOUNTER 2022-05-09 10:55 | Outpatient (REF) | payer OTHER, SELFPAY ==
[2022-05-09 13:10] LABS: Alanine Aminotransferase 19 U/L (0-31); Albumin Level 4.5 g/dL (3.5-5.0); Alkaline Phosphatase 82 U/L (39-117); Anion Gap 15 (12-20); Aspartate Amino Transferase 20 U/L (5-31); Bilirubin Total 0.3 mg/dL (0.0-1.0); Blood Urea Nitrogen 9 mg/dL (9-16); Calcium 9.8 mg/dL (8.4-10.2); Carbon Dioxide 24 mmol/L (22-29); Chloride 105 mmol/L (96-108); Estimated Glomerular Filt Rate > 60; Glucose Random 93 mg/dL (60-115); Phosphorus 3.4 mg/dL (2.7-4.5); Potassium 4.3 mmol/L (3.3-5.1); Sodium 140 mmol/L (135-145)
[2022-05-09 13:33] LABS: Vitamin D 25-OH Total 35.3 ng/mL (>30)
[2022-05-10 11:02] LABS: Calcium (PTHI) 9.7 mg/dL (8.6-10.4); PTHI 34 pg/mL (16-77)
== END 2022-05-09 10:56 | disposition home or self-care (01) ==
LOC: HO.LAB 10:55
PROVIDERS: PCP Internal Medicine; Visit Provider Internal Medicine
DX: M81.0 Age-related osteoporosis without current pathological fracture (principal); E04.1 Nontoxic single thyroid nodule; E55.9 Vitamin D deficiency, unspecified
CPT/HCPCS: 36415; 80053; 82306; 83970; 84100; 99212

== ENCOUNTER 2022-05-11 15:32 | Outpatient (REF) | payer OTHER, SELFPAY ==
[2022-05-11 18:30] LABS: Total Volume 24 Hour Urine 325 mL
[2022-05-11 18:42] LABS: Creatinine, 24Hr Urine 0.3 G/Day (1.0-2.0); Creatinine, mg/dL 106.52
[2022-05-13 19:56] LABS: Calcium, 24 Hr Urine 383 mg/24 h; Calcium/Creatinine Ratio 322 mg/g creat (30-275); Creatinine 24Hr Urine 1.19 g/24 h (0.50-2.15)
[2022-05-15 14:36] LABS: N-Telopeptide 90 (see note); NTXCreaRU 100 mg/dL (20-275)
== END 2022-05-11 15:33 | disposition home or self-care (01) ==
LOC: HO.LNP 15:32
PROVIDERS: Visit Provider Internal Medicine
DX: M81.0 Age-related osteoporosis without current pathological fracture (principal)
CPT/HCPCS: 82340; 82523; 82570

== ENCOUNTER → 2022-06-13 09:24 | Outpatient (BNVA) | payer OTHER, SELFPAY | PROVIDERS: PCP Internal Medicine; Visit Provider Internal Medicine | DX: M81.0 Age-related osteoporosis without current pathological fracture (principal); E04.1 Nontoxic single thyroid nodule; E55.9 Vitamin D deficiency, unspecified; R82.994 Hypercalciuria | CPT/HCPCS: 99212 ==

== ENCOUNTER 2022-08-19 08:11 | Emergency (ER) | payer OTHER, SELFPAY ==
--- NOTE | 2022-08-19 08:16 | ED_ITS ---
HPI - General Adult General Chief complaint: Ear Problems Stated complaint: EAR PAIN, H/A Time Seen by Provider: 08/19/22 08:16 Source: EMS Mode of arrival: EMS Limitations: no limitations History of Present Illness HPI narrative: Patient is a 62 year old assigned female at with a history of anemia and COPD presenting to the emergency department today with right sided ear pain and headache. Patient states that over the last 3 days she has had right sided ear pain that is now causing her a headache. Patient denies any dizziness, lightheadedness, abdominal pain, nausea, vomiting, fever, chills, blurry vision, double vision, loss of vision, chest pain, difficulty breathing, shortness of breath, back pain, night sweats, pain with urination, increased urinary frequency, increased urinary urgency, blood in her urine or stool, syncope or a near syncopal episode, recent trauma or falls, bowel incontinence, bladder incontinence, bowel retention, bladder retention, or any other complaints at this time. Onset (ago): day(s) (3) Location: right (ear) Severity: mild Severity scale (1-10): 3 Quality: aching and dull Pain Consistency: constant Relieving factors: none Exacerbating factors: none Associated symptoms: denies other symptoms Treatments prior to arrival: none Related Data Home Medications Medication Instructions Recorded Confirmed clopidogrel 75 mg tablet 75 mg PO DAILY 11/03/20 06/13/22 Previous Rx's Medication Instructions Recorded pantoprazole 40 mg tablet,delayed 40 mg PO DAILY 90 days #90 tabs 12/09/21 release cholecalciferol (vitamin D3) 25 25 mcg PO DAILY 30 days #30 caps 02/23/22 mcg (1,000 unit) capsule Symbicort 160 mcg-4.5 2 puff PO BID #10.2 grams 05/02/22 mcg/actuation HFA aerosol inhaler (budesonide-formoterol) hydrochlorothiazide 12.5 mg tablet 12.5 mg PO DAILY 30 days #30 tabs 06/13/22 Ventolin HFA 90 mcg/actuation 2 puff inhalation QID PRN 08/01/22 aerosol inhaler (albuterol sulfate) shortness of breath or wheezing #8 grams ferrous sulfate 325 mg (65 mg 325 mg PO BID 30 days #60 tabs 08/01/22 iron) tablet ropinirole 0.5 mg tablet 1 mg PO DAILY #180 tabs 08/01/22 amoxicillin 875 mg tablet 875 mg PO BID 5 days #10 tabs 08/19/22 Allergies Allergy/AdvReac Type Severity Reaction Status Date / Time aspirin AdvReac Mild Vomiting Verified 08/19/22 08:22 Review of Systems Constitutional: Constitutional: Reports no additional constitutional complaints, Denies chills, Denies fever(s) and Denies night sweats Eyes: Eyes: Reports no additional eye complaints, Denies blurry vision, Denies change in vision, Denies diplopia, Denies eye discharge, Denies loss of vision and Denies eye pain ENT: Denies dizziness Comments: right ear pain Cardiovascular: Cardiovascular: Reports no additional cardiovascular complaints, Denies chest pain, Denies lightheadedness, Denies Loss of Consciousness and Denies dyspnea Respiratory: Respiratory: Reports no additional respiratory complaints and Denies dyspnea Gastrointestinal: Gastrointestinal: Reports no additional gastrointestinal complaints, Denies abdominal pain, Denies melena, Denies hematochezia, Denies change in bowel habits and Denies change in stool character Genitourinary: Genitourinary: Denies hematuria, Denies urinary frequency, Denies dysuria, Denies urinary incontinence, Denies urinary hesitancy and Denies urinary urgency Musculoskeletal: Musculoskeletal: Reports no additional musculoskeletal complaints, Denies numbness and Denies tingling Neurologic: Denies dizziness, Denies loss of vision, Denies numbness and Denies tingling Psychiatric: Psychiatric: Reports no additional psychiatric complaints Endocrine: Endocrine: Reports no additional endocrine complaints Hematologic/Lymphatic: Hematologic/Lymphatic: Reports no additional hematologic/lymphatic complaints Allergic/Immunologic: Allergic/Immunologic: Reports no additional allergic/immunologic complaints FOR[facility]LY [facility] Past Medical History Attestation statement: The following information was validated with the patient. Source: old records reviewed and nursing notes reviewed Medical History Anemia Aortoiliac occlusive disease Chronic Helicobacter pylori gastritis Colonoscopy refused COPD (chronic obstructive pulmonary disease) Duodenitis Fibromyalgia Gastritis GERD (gastroesophageal reflux disease) Goiter History of alcohol abuse History of tachycardia Hx of angiography Idiopathic hypercalciuria Immunization declined Mammogram declined Myopia of both eyes Osteoporosis Papanicolaou smear declined Peripheral vascular disease Pyloric ulcer Restless leg syndrome Skin lesion of back Smoker unmotivated to quit Thyroid nodule Tubular adenoma of colon Vaccination declined by patient Vitamin D deficiency Surgical History History of ankle surgery (~11/2011) History of appendectomy History of endarterectomy (~05/2020) History of exploratory thoracotomy (~04/2018) History of lung biopsy (~04/2021) History of myringotomy History of removal of skin mole History of surgery on lower extremity History of surgical removal of lesion (~10/28/21) History of tonsillectomy History of tubal ligation Hx of colonoscopy Hx of coronary angiogram Hx of foot surgery Family History Family History Father Substance use disorder Mother Substance use disorder Osteoporosis Brother Substance use disorder Sister Substance use disorder Sister Substance use disorder Brother Substance use disorder Social History Social History Household Members: None Housing: House Housing Other:: mobile home Do you presently have visiting nurse or other home services: No Unable to assess alcohol history related to: Unknown Alcohol intake: former Patient Tobacco Use Status: Current everyday Tobacco user Tobacco use type: Cigarette Cigarette Packs Per Day: 1 Cigarettes Per Day: 20.0 e-Cigarette/Vaping Use: Never Used Second Hand Smoke Exposure: Yes Advance Directives: Yes Advance Directives on File: Yes Advance Directives Date on File: 07/19/21 service: No Current occupational status: disabled Current occupation: rt handed Current occupational exposures/hazards: No Physical Exam ED Vital Signs: Vital Signs - 24 hr 08/19/22 08:18 Temperature 98.6 F Pulse Rate 94 Respiratory Rate 18 Blood Pressure 156/79 H Pulse Oximetry 98 Oxygen Delivery Method Room Air BMI result Body Mass Index 17.9 Const General: cooperative, no acute distress, alert and awake Nutritional Appearance: well nourished Orientation/consciousness: patient oriented x3 Limitations: no limitations HENMT Head: Yes normal to inspection and Yes atraumatic Ears: hearing grossly normal bilaterally, external ears normal and TM abnormal erythematous on the right General nose exam: Normal external nose present, no nasal discharge noted and no epistaxis Face and sinus: Yes normal facial exam, No abrasion and No laceration Mouth: Normal oral and palatal mucosa present, no drooling and no muffled voice Eyes General: appearance normal, both eyes and all related structures Periorbital: periorbital findings normal Eyelids: Yes eyelids normal Conjunctivae: conjunctivae normal Pupils: Equal, round and reactive pupils present EOM: EOMs intact bilaterally Neck Neck: Yes normal visual inspection, Yes full ROM and Yes no lymphadenopathy Chest Chest palpation & inspection: normal inspection of the chest Resp Effort & Inspection: normal respiratory effort and able to speak in complete sentences Auscultation: clear to auscultation bilaterally Cardio Rate: regular rate Rhythm: regular rhythm GI Inspection: Yes normal to inspection Neuro General: patient oriented x3 and moves all extremities Cranial nerves: Yes Equal, round and reactive pupils present Cognition (Neuro): normal cognition Motor exam (neuro): 5/5 motor strength present throughout Sensory Exam: Normal double simultaneous stimulation for sensation Coordination: [id number] test normal Extrem General: Yes normal to inspection, Yes full ROM and Yes capillary refill normal Psych Appearance: grossly normal Mental Status: mental status grossly normal Affect: normal affect Attitude: cooperative Thought process: Normal thought process present Thought content: Normal thought content present Insight: Good insight present (Psych) Medical Decision Making Medical Decision Making MDM Narrative: Patient is a 62 year old assigned female at with a history of anemia and COPD presenting to the emergency department today with right ear pain. Patient's physical exam showed right sided TM erythema. I explained my physical exam findings to the patient. I answered all questions asked by the patient. I stressed the importance of the patient taking her medication as prescribed. I stressed the importance of the patient following up with her primary care provider. I stressed the importance of the patient returning to the emergency department immediately if her symptoms were to worsen or if she were to develop any dizziness, shortness of breath, difficulty breathing, chest pain, blurry vision, loss of vision, nausea, vomiting, abdominal pain, fever, chills, back pa in, or any other complaints. Patient verbalized agreement and understanding with this treatment plan and discharge. Discharge Plan Discharge Clinical Impression: Otitis media Patient Disposition: Home, Self-Care Instructions: Ear Infection (ED) Additional Instructions: Follow up with your primary care provider. Return to the emergency department immediately if your symptoms worsen or if you develop any dizziness, shortness of breath, difficulty breathing, chest pain, blurry vision, loss of vision, nausea, vomiting, abdominal pain, fever, chills, back pain, or any other complaints. Prescriptions: New amoxicillin 875 mg tablet 875 mg PO BID 5 Days Qty: 10 0RF No Action pantoprazole 40 mg tablet,delayed release (DR/EC) 40 mg PO DAILY 90 Days Qty: 90 2RF cholecalciferol (vitamin D3) 25 mcg (1,000 unit) capsule 25 mcg PO DAILY 30 Days Qty: 30 11RF budesonide-formoterol [Symbicort] 160-4.5 mcg/actuation HFA aerosol inhaler 2 puff PO BID Qty: 10.2 5RF ferrous sulfate 325 mg (65 mg iron) tablet 325 mg PO BID 30 Days Qty: 60 2RF ropinirole 0.5 mg tablet 1 mg PO DAILY Qty: 180 1RF albuterol sulfate [Ventolin HFA] 90 mcg/actuation HFA aerosol inhaler 2 puff inhalation QID PRN (Reason: shortness of breath or wheezing) Qty: 8 0RF clopidogrel 75 mg tablet 75 mg PO DAILY hydrochlorothiazide 12.5 mg tablet 12.5 mg PO DAILY 30 Days Qty: 30 6RF Referrals: Jennifer Flores MD [Primary Care Provider] - Print Language: Qatari
[2022-08-19 08:18] VITALS: BP 156/79; BP 162/78; PULSE 94; PULSE 95; RESP 18; TEMP 37; O2SAT 98; O2SAT 99; BMI 17.9
== END 2022-08-19 09:15 | disposition home or self-care (01) ==
PROVIDERS: Emergency Provider Emergency Medicine; PCP Internal Medicine
DX: H66.91 Otitis media, unspecified, right ear (principal); H92.01 Otalgia, right ear; R51.9 Headache, unspecified; F17.210 Nicotine dependence, cigarettes, uncomplicated; Z71.6 Tobacco abuse counseling
CPT/HCPCS: 99282; 99283

== ENCOUNTER 2022-09-01 10:25 | Outpatient (REF) | payer OTHER, SELFPAY ==
[2022-09-01 12:08] LABS: Alanine Aminotransferase 15 U/L (0-31); Albumin Level 4.2 g/dL (3.5-5.0); Alkaline Phosphatase 110 U/L (39-117); Anion Gap 14 (12-20); Aspartate Amino Transferase 17 U/L (5-31); Bilirubin Total 0.3 mg/dL (0.0-1.0); Blood Urea Nitrogen 12 mg/dL (9-16); Calcium 10.2 mg/dL (8.4-10.2); Carbon Dioxide 27 mmol/L (22-29); Chloride 102 mmol/L (96-108); Estimated Glomerular Filt Rate > 60; Glucose Random 89 mg/dL (60-115); Phosphorus 4.5 mg/dL (2.7-4.5); Sodium 138 mmol/L (135-145)
[2022-09-01 12:23] LABS: Vitamin D 25-OH Total 29.6 ng/mL (>30)
[2022-09-02 13:37] LABS: Calcium (PTHI) 10.2 mg/dL (8.6-10.4); PTHI 31 pg/mL (16-77)
== END 2022-09-01 10:26 | disposition home or self-care (01) ==
LOC: HO.HMGCLDS 10:25
PROVIDERS: PCP Internal Medicine; Visit Provider Internal Medicine
DX: E55.9 Vitamin D deficiency, unspecified (principal); M81.0 Age-related osteoporosis without current pathological fracture
CPT/HCPCS: 36415; 80053; 82306; 83970; 84100

== ENCOUNTER 2022-09-03 09:36 | Outpatient (REF) | payer OTHER, SELFPAY ==
[2022-09-03 11:56] LABS: Creatinine, mg/dL 33.81
[2022-09-03 15:04] LABS: Creatinine, 24Hr Urine 0.6 G/Day (1.0-2.0); Total Volume 24 Hour Urine 1800 mL
[2022-09-05 18:53] LABS: Calcium, 24 Hr Urine 119 mg/24 h; Calcium/Creatinine Ratio 206 mg/g creat (30-275); Creatinine 24Hr Urine 0.58 g/24 h (0.50-2.15)
== END 2022-09-03 09:37 | disposition home or self-care (01) ==
LOC: HO.HMGCLDS 09:36
PROVIDERS: Visit Provider Internal Medicine
DX: M81.0 Age-related osteoporosis without current pathological fracture (principal)
CPT/HCPCS: 82340; 82570

== ENCOUNTER 2022-10-21 10:58 | Outpatient (REF) | payer OTHER, SELFPAY ==
[2022-10-21 14:03] LABS: MANUAL DIFF FLAG NO
[2022-10-21 14:13] LABS: Basophils Absolute Auto 0.1 X10*3/uL (0.0-0.2); Basophils Percent Auto 0.7 % (0-2); Eosinophils Absolute Auto 0.1 X10*3/uL (0.0-0.4); Eosinophils Percent Auto 1.3 % (0-4); Hematocrit 38.9 % (37.0-47.0); Hemoglobin 12.3 g/dl (12.0-16.0); Imm Gran Abs Auto 0.01 X10*3/uL (0.00-0.03); Imm Gran Pct Auto 0.1 % (0.0-0.4); Lymphocytes Absolute Auto 1.8 X10*3/uL (1.2-4.9); Lymphocytes Percent Auto 25.4 % (20-40); Mean Corpuscular HGB Conc 31.6 g/dl (31.0-35.0); Mean Corpuscular Hemoglobin 27.5 pg (27.0-33.0); Mean Corpuscular Volume 86.8 fL (80.0-98.0); Mean Platelet Volume 8.9 fL (9.4-12.3); Monocytes Absolute Auto 0.5 X10*3/uL (0.1-1.2); Monocytes Percent Auto 7.8 % (2-11); Neutrophils Absolute Auto 4.5 x10*3/uL (2.0-8.3); Neutrophils Percent Auto 64.7 % (45-73); Platelet Count 383 X10*3/uL (160-400); Red Blood Count 4.48 X10*6/uL (4.20-5.50); Red Cell Distribution Width 15.8 % (11.0-16.0)
[2022-10-21 15:17] LABS: Cholesterol 209 mg/dL; HDL Cholesterol 71 mg/dL; LDL Cholesterol Calculated 119 mg/dl; Triglycerides 98 mg/dL
[2022-10-21 15:36] LABS: Vitamin D 25-OH Total 24.1 ng/mL (>30)
== END 2022-10-21 10:59 | disposition home or self-care (01) ==
LOC: HO.HMGCLDS 10:58
PROVIDERS: PCP Internal Medicine; Visit Provider Internal Medicine
DX: Z00.01 Encounter for general adult medical examination with abnormal findings (principal); E04.1 Nontoxic single thyroid nodule; F17.200 Nicotine dependence, unspecified, uncomplicated; I73.9 Peripheral vascular disease, unspecified; J44.9 Chronic obstructive pulmonary disease, unspecified; K25.9 Gastric ulcer, unspecified as acute or chronic, without hemorrhage or perforation; K29.70 Gastritis, unspecified, without bleeding; K29.80 Duodenitis without bleeding; R82.994 Hypercalciuria; R91.8 Other nonspecific abnormal finding of lung field; K52.9 Noninfective gastroenteritis and colitis, unspecified
CPT/HCPCS: 36415; 80061; 82306; 85025

== ENCOUNTER 2022-11-09 10:25 | Outpatient (REF) | payer OTHER, SELFPAY ==
--- NOTE | ~2022-11-09 | CT_ITS ---
EXAMINATION: CT CHEST WITHOUT CONTRAST CLINICAL INFORMATION: Follow up pulmonary nodules. COMPARISON: Previous chest CT most recent February 2021. TECHNIQUE: Multidetector volumetric CT imaging of the chest was done. Axial MIP volume rendering provided. Sagittal and coronal reformatted images were obtained. This CT examination was performed using dose optimization techniques as appropriate, variously including the following: *Automated exposure control *Adjustment of mA and/or kV according to patient size (this includes techniques or standardized protocols for targeted exams where dose is matched to indication/reason for exam; i.e. extremities or head) *Use of iterative reconstruction technique DLP: 68 mGy-cm. FINDINGS: LUNGS: The partially calcified abnormal parenchymal density with spiculations in the right upper lobe does not appear appreciably changed from prior exam. There are adjacent small calcification. There is a 4 mm right upper lobe nodule axial image 1 7 series 5 that is stable. There is an irregularly-shaped left upper lobe nodule that measures 5 mm axial image 300 series 5. This may be slightly increased from 4 mm on previous exam. There is a 4 mm right lower lobe nodule axial image 326 series 5 that is stable. There is a 3 mm left upper lobe nodule axial image 331 series 5 that is stable. There is a 8 x 10 mm left lower lobe nodule axial image 399 series 5 that is stable. There is a 4 x 6 mm peripheral or subpleural left lower lobe nodule adjacent to the fissure axial image 420 series 5. This appears increased in size from 4 mm on previous exam. There are additional surrounding satellite nodules or areas of bronchial wall thickening. There is a 4 mm peripheral or subpleural left lower lobe nodule adjacent to the spine axial image 461 series 5 that is slightly increased from 3 mm on prior exam. There is a 6 mm heterogeneous or ground-glass attenuation right lower lobe nodule axial image 436 series 5 that is stable. There is chronic scarring or subsegmental atelectasis at both lung bases, posterior costophrenic sulci, left greater than right. There is severe emphysema. MEDIASTINUM: The mediastinum is normal. CORONARY ARTERY CALCIFICATION: Moderate to severe. PLEURA: There is no pleural effusion. No pleural mass or thickening. AXILLA: No lymphadenopathy. UPPER ABDOMEN: Unremarkable. OSSEOUS STRUCTURES: Old left lateral rib fracture. CT/CT chest wo IV con IMPRESSION: The dominant spiculated partially calcified abnormal parenchymal density in the right upper lobe is stable. There is question of slight interval increase in size in several left pulmonary nodules. Attention on followup recommended. No new pulmonary nodule. Severe emphysema. Fleischner guidelines were followed.
== END 2022-11-09 10:26 | disposition home or self-care (01) ==
LOC: HO.CT 10:25
PROVIDERS: PCP Internal Medicine; Visit Provider Surgery
DX: R91.8 Other nonspecific abnormal finding of lung field (principal)
CPT/HCPCS: 71250

== ENCOUNTER → 2022-11-23 08:52 | Outpatient (BNVA) | payer OTHER, SELFPAY | PROVIDERS: PCP Internal Medicine; Visit Provider Nurse Practitioner | DX: K25.9 Gastric ulcer, unspecified as acute or chronic, without hemorrhage or perforation (principal); K29.80 Duodenitis without bleeding; R13.10 Dysphagia, unspecified; R07.0 Pain in throat; Z80.0 Family history of malignant neoplasm of digestive organs; D12.6 Benign neoplasm of colon, unspecified | CPT/HCPCS: 99212 ==

== ENCOUNTER → 2022-12-09 08:43 | Outpatient (BNVA) | payer OTHER, SELFPAY | PROVIDERS: PCP Internal Medicine; Visit Provider Surgery | DX: R91.8 Other nonspecific abnormal finding of lung field (principal); J44.9 Chronic obstructive pulmonary disease, unspecified; F17.210 Nicotine dependence, cigarettes, uncomplicated; Z71.6 Tobacco abuse counseling | CPT/HCPCS: 99212 ==

== ENCOUNTER 2023-01-13 19:09 | Emergency (ER) | payer OTHER, SELFPAY ==
--- NOTE | ~2023-01-13 | XR_ITS ---
EXAMINATION: XR CHEST CLINICAL INFORMATION: Cough COMPARISON: Previous chest film dated 07/19/[address] corn miller film dated 11/09/2022 TECHNIQUE: 2 views of the chest were obtained. FINDINGS: There is no acute finding here. Once again density seen in the right upper lung. No acute infiltrate is seen. There is no effusion. The hilar regions do not appear pathologically enlarged. There is no effusion. The cardiac silhouette is within normal limits. . XR/XR chest 2V IMPRESSION: No acute finding is felt to be present. It should be noted Nodules described on CT of 11/09/2022 are not adequately evaluated.
--- NOTE | 2023-01-13 19:26 | ED_ITS ---
HPI - General Adult General Chief complaint: General Medical Stated complaint: COUGHING UP BLOOD. Time Seen by Provider: 01/13/23 20:59 Source: patient Mode of arrival: ambulatory Limitations: no limitations History of Present Illness HPI narrative: 8-year-old smoker presents with hemoptysis. She has had 1 episode approximately quarter-sized to half dollar size hemoptysis. Patient does routinely have blood in her cough/mucus is typically much less. She is followed by pulmonary medicine and has an appointment coming up this week. She denies any change in her cough. She denies any fevers, chills. She denies any chest pain or shortness of breath. There is no clear relieving or exacerbating features. The symptoms are moderate in nature. Symptom was only that 1 episode today. Related Data Home Medications Medication Instructions Recorded Confirmed clopidogrel 75 mg tablet 75 mg PO DAILY 11/03/20 12/26/22 ropinirole 0.5 mg tablet 1 mg PO DAILY 11/23/22 12/26/22 Previous Rx's Medication Instructions Recorded Symbicort 160 mcg-4.5 2 puff PO BID #10.2 grams 05/02/22 mcg/actuation HFA aerosol inhaler (budesonide-formoterol) ferrous sulfate 325 mg (65 mg 325 mg PO BID 30 days #60 tabs 08/01/22 iron) tablet Ventolin HFA 90 mcg/actuation 2 puff inhalation QID PRN 11/16/22 aerosol inhaler (albuterol sulfate) shortness of breath or wheezing #8 grams peg 3350-electrolytes 236 240 ml PO Q10M 1 day #4,000 mL 11/23/22 gram-22.74 gram-6.74 gram-5.86 gram solution (Golytely) pantoprazole 40 mg tablet,delayed 40 mg PO DAILY 90 days #90 tabs 12/06/22 release pramipexole 0.125 mg tablet 0.125 mg PO BEDTIME #30 tabs 12/06/22 cholecalciferol (vitamin D3) 1,250 1,250 mcg PO QWEEK 3 months #13 01/02/23 mcg (50,000 unit) capsule caps Allergies Allergy/AdvReac Type Severity Reaction Status Date / Time aspirin AdvReac Mild Vomiting Verified 12/09/22 09:24 Review of Systems Review of Systems: CONSTITUTIONAL: Denies weight loss, fever and chills. HEENT: Denies changes in vision and hearing. RESPIRATORY: Denies SOB positive cough with blood CV: Denies palpitations no CP. GI: Denies abdominal pain, nausea, vomiting and diarrhea. : Denies dysuria and urinary frequency. MSK: Denies myalgia and joint pain. SKIN: Denies rash and pruritus. NEUROLOGICAL: Denies headache and syncope. PSYCHIATRIC: Denies recent changes in mood. Denies anxiety and depression. All other ROS are negative unless in HPI PMFSH Past Medical History Medical History (Updated 01/13/23 @ 22:03 by Smooth Michel MD) Anemia Aortoiliac occlusive disease Chronic Helicobacter pylori gastritis COPD (chronic obstructive pulmonary disease) Duodenitis Fibromyalgia Gastritis GERD (gastroesophageal reflux disease) Goiter History of alcohol abuse History of tachycardia Hx of angiography Idiopathic hypercalciuria Immunization declined Mammogram declined Myopia of both eyes Osteoporosis Papanicolaou smear declined Peripheral vascular disease Pyloric ulcer Restless leg syndrome Skin lesion of back Smoker unmotivated to quit Thyroid nodule Tubular adenoma of colon Vaccination declined by patient Vitamin D deficiency Surgical History (Updated 12/26/22 @ 14:56 by Nu Ryan RN) History of ankle surgery (~11/2011) History of appendectomy History of endarterectomy (~05/2020) History of exploratory thoracotomy (~04/2018) History of lung biopsy (~04/2021) History of myringotomy History of removal of skin mole History of surgery on lower extremity History of surgical removal of lesion (~10/28/21) History of tonsillectomy History of tubal ligation Hx of colonoscopy Hx of coronary angiogram Hx of foot surgery Family History Family History Father Substance use disorder Mother Substance use disorder Osteoporosis Brother Substance use disorder Sister Substance use disorder Sister Substance use disorder Brother Substance use disorder Social History Social History Household Members: None Housing: House Housing Other:: mobile home Are you a primary critical care unit nurse to a significant other at home: No Do you presently have visiting nurse or other home services: No Unable to assess alcohol history related to: Unknown Alcohol intake: former Patient Tobacco Use Status: Current everyday Tobacco user Tobacco use type: Cigarette Cigarette Packs Per Day: 1 Cigarettes Per Day: 20.0 e-Cigarette/Vaping Use: Never Used Second Hand Smoke Exposure: Yes Advance Directives: Yes Advance Directives on File: Yes Advance Directives Date on File: 07/19/21 service: No Current occupational status: disabled Current occupation: rt handed Current occupational exposures/hazards: No Cognitive needs: No Hearing needs: No Vision needs: Yes Physical Exam ED Vital Signs: Vital Signs - 24 hr 01/13/23 19:27 Temperature 97.9 F Pulse Rate 72 Respiratory Rate 18 Blood Pressure 124/74 Pulse Oximetry 96 Oxygen Delivery Method Room Air BMI result Body Mass Index 17.6 GEN: Well developed, no acute distress, alert, oriented HEENT: Normocephalic, atraumatic, normal external ears, nose appears normal, no oropharyngeal edema or exudates Eyes: Normal to appearance Neck: Supple, no lymphadenopathy Respiratory: Talks in complete sentences, no respiratory distress, clear to auscultation bilaterally Cardiovascular: Regular rate and rhythm, no murmurs rubs or gallops Abdomen: Soft, nontender, nondistended, no guarding, no rebound Back: No CVA tenderness Extremities: No clubbing cyanosis or edema Neurologic: No focal neurologic deficits, cranial nerves 2-12 intact, strength is 5/5 bilaterally Skin: No rash Course Course Course Narrative: RME performed by Rajwinder Garcia PA-C. Patient is a 62 year old assigned female at presenting to the emergency department with coughing blood. Labs, imaging, and swabs ordered. Patient placed back in the waiting room pending room availability and results. Reevaluation(s) Reevaluation #1: The workup is complete. Her pulmonary exam is normal. She has had only 1 episode of hemoptysis. She has follow-up with Pulmonary Medicine. Will discharge at this time. There is no indications for antibiotics. Time: 22:00 Medical Decision Making Medical Decision Making MDM Narrative: Patient presents with 1 episode of hemoptysis. She is a smoker. She does routinely have hemoptysis. She is followed by pulmonary medicine. Differential diagnosis could include bronchiectasis, bronchitis, cancer, capillary rupture, pneumonia. Will order chest x-ray and laboratory analysis. Will re-evaluate patient frequently. Differential Diagnosis Differential Diagnoses: The differential diagnosis associated with the presentation includes (See above) Admission/Observation Consideration of admission/observation: Escalation of care including admission/observation considered Lab Data MDM Lab Attestation statement: I reviewed the patient's lab results. 01/13/23 20:35 01/13/23 20:35 Labs: Lab Results 01/13/23 01/13/23 01/13/23 Range/Units 20:35 20:35 20:35 WBC 6.4 (4.8-10.8) X10*3/uL RBC 4.47 (4.20-5.50) X10*6/uL Hgb 9.2 L D (12.0-16.0) g/dl Hct 31.3 L (37.0-47.0) % MCV 70.0 L (80.0-98.0) fL MCH 20.6 L (27.0-33.0) pg MCHC 29.4 L (31.0-35.0) g/dl RDW 18.3 H (11.0-16.0) % Plt Count 354 (160-400) X10*3/uL MPV 8.5 L (9.4-12.3) fL Immature Gran % (Auto) 0.5 H (0.0-0.4) % Neut % (Auto) 57.7 (45-73) % Lymph % (Auto) 32.9 (20-40) % [place] % (Auto) 6.1 (2-11) % Eos % (Auto) 2.3 (0-4) % Baso % (Auto) 0.5 (0-2) % Lymph # (Auto) 2.1 (1.2-4.9) X10*3/uL [place] # (Auto) 0.4 (0.1-1.2) X10*3/uL Eos # (Auto) 0.2 (0.0-0.4) X10*3/uL Baso # (Auto) 0.0 (0.0-0.2) X10*3/uL Abs Immat Gran (auto) 0.03 (0.00-0.03) X10*3/uL Absolute Neuts (auto) 3.7 (2.0-8.3) x10*3/uL Absolute Nucleated RBC 0.000 (0.0-0.012) X10*3/uL Nucleated RBC % (auto) 0.0 (0.0-0.2) /100WBC PT 9.7 L (10.0-13.1) SEC INR 0.9 (0.9-1.1) APTT 25.2 L (26.0-36.4) SEC Sodium 131 L (135-145) mmol/L Potassium 4.7 (3.3-5.1) mmol/L Chloride 99 (96-108) mmol/L Carbon Dioxide 21 L (22-29) mmol/L Anion Gap 16 (12-20) BUN 4 L (9-16) mg/dL Creatinine 0.59 (0.5-1.4) mg/dL Estim Creat Clear Calc 67.5 Estimated GFR > 60 Random Glucose 83 (60-115) mg/dL Calcium 9.1 D (8.4-10.2) mg/dL Magnesium 2.0 (1.6-2.6) mg/dL Total Bilirubin 0.3 (0.0-1.0) mg/dL AST 22 (5-31) U/L ALT 17 (0-31) U/L Alkaline Phosphatase 94 (39-117) U/L Total Protein 6.8 (6.5-8.0) g/dL Albumin 4.3 (3.5-5.0) g/dL COVID-19 ([facility]) (Negative) COVID-19 Clin Com 01/13/23 Range/Units 20:35 WBC (4.8-10.8) X10*3/uL RBC (4.20-5.50) X10*6/uL Hgb (12.0-16.0) g/dl Hct (37.0-47.0) % MCV (80.0-98.0) fL MCH (27.0-33.0) pg MCHC (31.0-35.0) g/dl RDW (11.0-16.0) % Plt Count (160-400) X10*3/uL MPV (9.4-12.3) fL Immature Gran % (Auto) (0.0-0.4) % Neut % (Auto) (45-73) % Lymph % (Auto) (20-40) % [place] % (Auto) (2-11) % Eos % (Auto) (0-4) % Baso % (Auto) (0-2) % Lymph # (Auto) (1.2-4.9) X10*3/uL [place] # (Auto) (0.1-1.2) X10*3/uL Eos # (Auto) (0.0-0.4) X10*3/uL Baso # (Auto) (0.0-0.2) X10*3/uL Abs Immat Gran (auto) (0.00-0.03) X10*3/uL Absolute Neuts (auto) (2.0-8.3) x10*3/uL Absolute Nucleated RBC (0.0-0.012) X10*3/uL Nucleated RBC % (auto) (0.0-0.2) /100WBC PT (10.0-13.1) SEC INR (0.9-1.1) APTT (26.0-36.4) SEC Sodium (135-145) mmol/L Potassium (3.3-5.1) mmol/L Chloride (96-108) mmol/L Carbon Dioxide (22-29) mmol/L Anion Gap (12-20) BUN (9-16) mg/dL Creatinine (0.5-1.4) mg/dL Estim Creat Clear Calc Estimated GFR Random Glucose (60-115) mg/dL Calcium (8.4-10.2) mg/dL Magnesium (1.6-2.6) mg/dL Total Bilirubin (0.0-1.0) mg/dL AST (5-31) U/L ALT (0-31) U/L Alkaline Phosphatase (39-117) U/L Total Protein (6.5-8.0) g/dL Albumin (3.5-5.0) g/dL COVID-19 ([facility]) Negative (Negative) COVID-19 Clin Com See Note Independent Interpretation I performed an independent interpretation of an: Plain X-Ray (No acute cardiopu lmonary disease) Radiology Impression Discussion of test interpretation with radiology: I have reviewed the radiologist's reading. ( XR/XR chest 2V IMPRESSION: No acute finding is felt to be present. It should be noted Nodules described on CT of 11/09/2022 are not adequately evaluated. Dictated By:Corado,Donato T MDSigned By:<Electronically signed by Donato Corado MD in OV>[id number]/13/[id number]) External Record Review External record reviewed: Office record (Thoracic surgery) Prescription Management I considered prescription management with: Antibiotic Chronic Conditions Patient?s care impacted by: Other (COPD) Discharge Plan Discharge Clinical Impression: Hemoptysis Patient Disposition: Home, Self-Care Instructions: Hemoptysis (ED) Prescriptions: No Action budesonide-formoterol [Symbicort] 160-4.5 mcg/actuation HFA aerosol inhaler 2 puff PO BID Qty: 10.2 5RF ferrous sulfate 325 mg (65 mg iron) tablet 325 mg PO BID 30 Days Qty: 60 2RF albuterol sulfate [Ventolin HFA] 90 mcg/actuation HFA aerosol inhaler 2 puff inhalation QID PRN (Reason: shortness of breath or wheezing) Qty: 8 4RF pantoprazole 40 mg tablet,delayed release (DR/EC) 40 mg PO DAILY 90 Days Qty: 90 2RF pramipexole 0.125 mg tablet 0.125 mg PO BEDTIME Qty: 30 5RF cholecalciferol (vitamin D3) 1,250 mcg (50,000 unit) capsule 1,250 mcg PO QWEEK 90 Days Qty: 13 0RF clopidogrel 75 mg tablet 75 mg PO DAILY ropinirole 0.5 mg tablet 1 mg PO DAILY peg 3350-electrolytes [Golytely] 236-22.74-6.74 -5.86 gram recon soln 240 ml PO Q10M 1 Days Qty: 4000 0RF Rx Instructions: until fecal effluent is clear; do not exceed a total volume of 2,000 mL Referrals: Jennifer Flores MD [Primary Care Provider] -
[2023-01-13 19:27] VITALS: BP 124/74; BP 161/99; PULSE 72; PULSE 82; RESP 18; TEMP 36.6; O2SAT 96; BMI 17.6
[2023-01-13 20:39] LABS: MANUAL DIFF FLAG NO
[2023-01-13 20:43] LABS: Basophils Percent Auto 0.5 % (0-2); Eosinophils Absolute Auto 0.2 X10*3/uL (0.0-0.4); Eosinophils Percent Auto 2.3 % (0-4); Hematocrit 31.3 % (37.0-47.0); Hemoglobin 9.2 g/dl (12.0-16.0); Imm Gran Abs Auto 0.03 X10*3/uL (0.00-0.03); Imm Gran Pct Auto 0.5 % (0.0-0.4); Lymphocytes Absolute Auto 2.1 X10*3/uL (1.2-4.9); Lymphocytes Percent Auto 32.9 % (20-40); Mean Corpuscular HGB Conc 29.4 g/dl (31.0-35.0); Mean Corpuscular Hemoglobin 20.6 pg (27.0-33.0); Mean Platelet Volume 8.5 fL (9.4-12.3); Monocytes Absolute Auto 0.4 X10*3/uL (0.1-1.2); Monocytes Percent Auto 6.1 % (2-11); Neutrophils Absolute Auto 3.7 x10*3/uL (2.0-8.3); Neutrophils Percent Auto 57.7 % (45-73); Platelet Count 354 X10*3/uL (160-400); Red Blood Count 4.47 X10*6/uL (4.20-5.50); Red Cell Distribution Width 18.3 % (11.0-16.0); White Blood Count 6.4 X10*3/uL (4.8-10.8)
[2023-01-13 20:48] LABS: INTERNATIONAL NORM RATIO 0.9 (0.9-1.1); Prothrombin Time 9.7 SEC (10.0-13.1)
[2023-01-13 20:51] LABS: Partial Thromboplastin Time 25.2 SEC (26.0-36.4)
[2023-01-13 20:59] LABS: Alanine Aminotransferase 17 U/L (0-31); Albumin Level 4.3 g/dL (3.5-5.0); Alkaline Phosphatase 94 U/L (39-117); Anion Gap 16 (12-20); Aspartate Amino Transferase 22 U/L (5-31); Bilirubin Total 0.3 mg/dL (0.0-1.0); Blood Urea Nitrogen 4 mg/dL (9-16); Calcium 9.1 mg/dL (8.4-10.2); Carbon Dioxide 21 mmol/L (22-29); Chloride 99 mmol/L (96-108); Creatinine Clr Calc Pharmacy 67.5; Estimated Glomerular Filt Rate > 60; Glucose Random 83 mg/dL (60-115); Potassium 4.7 mmol/L (3.3-5.1); Sodium 131 mmol/L (135-145); Total Protein 6.8 g/dL (6.5-8.0)
[2023-01-13 21:00] LABS: COVID-19 Test Negative (Negative); IDNOW Serial# BCCEAD1C
[2023-01-13 22:44] VITALS: BP 137/77; PULSE 79; RESP 20; O2SAT 98
== END 2023-01-13 22:45 | disposition home or self-care (01) ==
PROVIDERS: Physician Assistant Medical; Emergency Provider Emergency Medicine; PCP Internal Medicine
DX: R04.2 Hemoptysis (principal); Z20.822 Contact with and (suspected) exposure to COVID-19; F17.210 Nicotine dependence, cigarettes, uncomplicated
CPT/HCPCS: 36415; 71046; 80053; 83735; 85025; 85610; 85730; 87635; 99282; 99283

== ENCOUNTER → 2023-01-19 08:30 | Outpatient (BNVA) | payer OTHER, SELFPAY | PROVIDERS: PCP Internal Medicine; Visit Provider Internal Medicine | DX: J44.9 Chronic obstructive pulmonary disease, unspecified (principal); R91.8 Other nonspecific abnormal finding of lung field; I74.09 Other arterial embolism and thrombosis of abdominal aorta; I73.9 Peripheral vascular disease, unspecified; F17.210 Nicotine dependence, cigarettes, uncomplicated | CPT/HCPCS: 99202 ==

== ENCOUNTER 2023-02-22 09:48 | Day surgery (SDC) | payer OTHER, SELFPAY ==
[2022-12-26 15:15] VITALS: BMI 17.2
--- NOTE | 2022-12-27 12:01 | HO.ANESPROP2 ---
HPI - Anesthesia Eval Consult details Narrative: 62yo F for Upper Endoscopy and Colonoscopy Plavix for PVD s/p colo 2021 with TIVA PMFSH Active Problems Active Problems: All Active Problems (Updated 11/23/22 @ 10:20 by JIGAR Espinal) Pulmonary nodules (Acute) Contusion of leg, right (Acute) Fracture of proximal end of fibula (Acute) Tubular adenoma of colon (Acute) Family history of colon cancer (Acute) Impaired swallowing associated with throat pain (Acute) Idiopathic hypercalciuria (Acute) Thyroid nodule (Acute) Vitamin D deficiency (Acute) Goiter (Acute) Skin lesion of back (Acute) Immunization declined (Acute) Gastritis (Acute) Duodenitis (Acute) Pyloric ulcer (Acute) Myopia of both eyes (Acute) Vaccination declined by patient (Acute) Papanicolaou smear declined (Acute) Mammogram declined (Acute) Smoker unmotivated to quit (Acute) Restless leg syndrome (Acute) Aortoiliac occlusive disease (Acute) COPD (chronic obstructive pulmonary disease) (Acute) Fibromyalgia (Acute) Peripheral vascular disease (Acute) Osteoporosis (Acute) Past Medical History Medical History Anemia Aortoiliac occlusive disease Chronic Helicobacter pylori gastritis COPD (chronic obstructive pulmonary disease) Duodenitis Fibromyalgia Gastritis GERD (gastroesophageal reflux disease) Goiter History of alcohol abuse History of tachycardia Hx of angiography Idiopathic hypercalciuria Immunization declined Mammogram declined Myopia of both eyes Osteoporosis Papanicolaou smear declined Peripheral vascular disease Pyloric ulcer Restless leg syndrome Skin lesion of back Smoker unmotivated to quit Thyroid nodule Tubular adenoma of colon Vaccination declined by patient Vitamin D deficiency Family History Family History Father Substance use disorder Mother Substance use disorder Osteoporosis Brother Substance use disorder Sister Substance use disorder Sister Substance use disorder Brother Substance use disorder Family history of problems with anesthesia: No Surgical History Surgical History (Updated 12/26/22 @ 14:56 by Nu Ryan RN) History of ankle surgery (~11/2011) History of appendectomy History of endarterectomy (~05/2020) History of exploratory thoracotomy (~04/2018) History of lung biopsy (~04/2021) History of myringotomy History of removal of skin mole History of surgery on lower extremity History of surgical removal of lesion (~10/28/21) History of tonsillectomy History of tubal ligation Hx of colonoscopy Hx of coronary angiogram Hx of foot surgery History of Problems with Anesthesia: No Social History Social History Household Members: None Housing: House Housing Other:: mobile home Are you a primary certified social workers in health care to a significant other at home: No Do you presently have visiting nurse or other home services: No Unable to assess alcohol history related to: Unknown Alcohol intake: former Patient Tobacco Use Status: Current everyday Tobacco user Tobacco use type: Cigarette Cigarette Packs Per Day: 1 Cigarettes Per Day: 20.0 e-Cigarette/Vaping Use: Never Used Second Hand Smoke Exposure: Yes Advance Directives Date on File: 07/19/21 service: No Current occupational status: disabled Current occupation: rt handed Current occupational exposures/hazards: No Cognitive needs: No Hearing needs: No Vision needs: Yes Meds Allergies Allergy/AdvReac Type Severity Reaction Status Date / Time aspirin AdvReac Mild Vomiting Verified 12/09/22 09:24 Home Medications Medication Instructions Recorded Confirmed Last Taken Type clopidogrel 75 mg tablet 75 mg PO DAILY 11/03/20 12/26/22 12/02/21 History ropinirole 0.5 mg tablet 1 mg PO DAILY 11/23/22 12/26/22 Unknown History Exam Exam Date and Time: December 27, 2022 1201 Height,Weight and Vital Signs: Height 5 ft 1 in Weight 41.277 kg Pertinent Lab Results Pertinent Lab Results: Laboratory Tests 09/01/22 10/21/22 10:35 11:02 WBC 7.0 Hgb 12.3 Hct 38.9 Plt Count 383 D Sodium 138 Potassium 5.0 Chloride 102 Carbon Dioxide 27 BUN 12 Creatinine 0.63 Assessment and Plan Assessment Anesthesia Assessment: Chart Reviewed Final Anesthetic Review Family History of Problems with Anesthesia: No History of Problems with Anesthesia: No
[2023-02-20 13:33] VITALS: BMI 17.0
[2023-02-22 10:28] VITALS: BP 153/62; PULSE 76; RESP 18; TEMP 36.8; O2SAT 98
[2023-02-22] MEDS: Lactated Ringers 1,000 ML 100 ML IVCONT (10:32)
[2023-02-22] MEDS: Albuterol Sulfate (0.083%) 2.5 MG/3 ML VIAL.NEB INHALE (10:33)
[2023-02-22 10:34] VITALS: PULSE 77; RESP 17; O2SAT 98
--- NOTE | 2023-02-22 10:36 | P.CONAN_ITS ---
[facility] Active Problems Active Problems: All Active Problems (Updated 01/19/23 @ 09:26 by Nabeel Nichols MD) Smoker (Acute) Pulmonary nodules (Acute) Contusion of leg, right (Acute) Fracture of proximal end of fibula (Acute) Tubular adenoma of colon (Acute) Family history of colon cancer (Acute) Impaired swallowing associated with throat pain (Acute) Idiopathic hypercalciuria (Acute) Thyroid nodule (Acute) Vitamin D deficiency (Acute) Goiter (Acute) Skin lesion of back (Acute) Immunization declined (Acute) Gastritis (Acute) Duodenitis (Acute) Pyloric ulcer (Acute) Myopia of both eyes (Acute) Vaccination declined by patient (Acute) Papanicolaou smear declined (Acute) Mammogram declined (Acute) Smoker unmotivated to quit (Acute) Restless leg syndrome (Acute) Aortoiliac occlusive disease (Acute) COPD (chronic obstructive pulmonary disease) (Acute) Fibromyalgia (Acute) Peripheral vascular disease (Acute) Osteoporosis (Acute) Past Medical History Medical History Anemia Aortoiliac occlusive disease Chronic Helicobacter pylori gastritis COPD (chronic obstructive pulmonary disease) Duodenitis Fibromyalgia Gastritis GERD (gastroesophageal reflux disease) Goiter History of alcohol abuse History of tachycardia Hx of angiography Idiopathic hypercalciuria Immunization declined Mammogram declined Myopia of both eyes Osteoporosis Papanicolaou smear declined Peripheral vascular disease Pyloric ulcer Restless leg syndrome Skin lesion of back Smoker Smoker unmotivated to quit Thyroid nodule Tubular adenoma of colon Vaccination declined by patient Vitamin D deficiency Family History Family History Father Substance use disorder Mother Substance use disorder Osteoporosis Brother Substance use disorder Sister Substance use disorder Sister Substance use disorder Brother Substance use disorder Family history of problems with anesthesia: No Surgical History Surgical History History of ankle surgery (~11/2011) History of appendectomy History of endarterectomy (~05/2020) History of exploratory thoracotomy (~04/2018) History of lung biopsy (~04/2021) History of myringotomy History of removal of skin mole History of surgery on lower extremity History of surgical removal of lesion (~10/28/21) History of tonsillectomy History of tubal ligation Hx of colonoscopy Hx of coronary angiogram Hx of foot surgery History of Problems with Anesthesia: No Social History Social History (Updated 02/20/23 @ 13:33 by Dulce Bassett RN) Household Members: None Housing: House Housing Other:: mobile home Are you a primary wound care nurse to a significant other at home: No Do you presently have visiting nurse or other home services: Yes ([employer]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 If so, by whom?: No Are you DNR?: No Advance Directives: Yes Advance Directives Information Provided: Yes Advance Directives on File: Yes Advance Directives Date on File: 07/19/21 Recently lost weight without trying: No Eating poorly because of decreased appetite: No service: No Current occupational status: disabled Current occupation: rt handed Current occupational exposures/hazards: No Cognitive needs: No Hearing needs: No Vision needs: Yes Meds Allergies Allergy/AdvReac Type Severity Reaction Status Date / Time aspirin AdvReac Mild Vomiting Verified 02/20/23 13:32 Active Medications: Current Medications Albuterol Sulfate (Albuterol Sulfate (0.083%) 2.5 Mg/3 Ml Vial.Neb) 2.5 mg INHALE ONCE PRN PRN Reason: Shortness of Breath/Wheezing Last Admin: 02/22/23 10:33 Dose: 2.5 mg Lactated Ringer's (Lr) 1,000 mls @ 100 mls/hr IVCONT .Q10H BILL Last Admin: 02/22/23 10:32 Dose: 100 mls/hr Home Medications Medication Instructions Recorded Confirmed Last Taken Type clopidogrel 75 mg tablet 75 mg PO DAILY 11/03/20 02/20/23 02/16/23 08:00 History ropinirole 0.5 mg tablet 1 mg PO DAILY 11/23/22 12/26/22 Unknown History ferrous sulfate 325 mg (65 mg 325 mg PO DAILY 01/19/23 02/20/23 02/16/23 08:00 History iron) tablet Tylenol Arthritis 02/20/23 02/20/23 Unknown History Exam Exam Date and Time: February 22, 2023 1036 Height,Weight and Vital Signs: Height 5 ft 1 in Weight 40.823 kg Last Vital Signs Temp 98.3 F 02/22/23 10:28 Pulse 76 02/22/23 10:28 Resp 18 02/22/23 10:28 BP 153/62 H 02/22/23 10:28 Pulse Ox 98 02/22/23 10:28 O2 Del Method Room Air 02/22/23 10:28 Airway Mallampati Class: II TM Dist: >3cm Denture: Upper Assessment and Plan Assessment Anesthesia Assessment: Anesthesia Plan Discussed and Chart Reviewed Final Anesthetic Review Family History of Problems with Anesthesia: No History of Problems with Anesthesia: No NPO: Yes ASA Class: III Final Preanesthetic Review: No Changes in Pt Med Stat, Meds/Allgs Chart Review ed, Consent Obtained/Reviewed and Anes Risks/Benef Reviewed Patient Risk: High Procedure Risk: Low Anesthetic Plan Anesthetic Plan: MAC: Disposition: Standard PACU
--- NOTE | 2023-02-22 10:38 | MHC.SHP ---
Pre-Procedural Eval Section A Date of Service: 02/22/23 Section B Chief Complaint: Family history of malignant neoplasm of digestive Relevant Family History (Specify if Yes): Yes Relevant Social History: Tobacco Use Present Medications: see Short Stay Collaborative assessment Medical History: Significant History (Anemia Aortoiliac occlusive disease Chronic Helicobacter pylori gastritis COPD (chronic obstructive pulmonary disease) Duodenitis Fibromyalgia Gastritis GERD (gastroesophageal reflux disease) Goiter History of alcohol abuse History of tachycardia Hx of angiography Idiopathic hypercalciuria Immunizat) History of Previous Operations: Relevant previous surgery/procedure and date(s) (History of ankle surgery (~11/2011) History of appendectomy History of endarterectomy (~05/2020) History of exploratory thoracotomy (~04/2018) History of lung biopsy (~04/2021) History of myringotomy History of removal of skin mole History of surgery on lower extremity History of surgical removal of) Allergies: Allergies Allergy/AdvReac Type Severity Reaction Status Date / Time aspirin AdvReac Mild Vomiting Verified 02/20/23 13:32 Review of Systems Sugical H&P ROS: Negative: Constitution, Cardiovascular, Respiratory, Neurological, Psychiatric, Hem-Onc, Allergic/Immunologic, Gastrointestinal, Genitourinary, Musculoskeletal, Integumentary, Endocrine and Eyes/Ears/Nose/Throat Exam Surgical H&P Exam: Normal: HEENT, Normal: Heart, Normal: Lungs, Normal: Extremities, Normal: Abdomen and Normal: Neurological and Significant Findings: Skin (bruises on skin from plavix) Plan Diagnosis/Plan: Unchanged I have reviewed the history and physical and performed a pertinent physical examination on my patient. No changes have occurred unless specified. Time Spent With Patient Time: Total time managing care of this patient today ____ minutes.
--- NOTE | 2023-02-22 10:40 | P.OP_ITS ---
Operative Note Operative Note Date of Service: 02/22/23 Narrative: Operative Information Procedure Description: EGD, Colonoscopy Indication: anemia, FH of CRC, personal hx of polyps Anesthesia: MAC FLEXIBLE TRANSORAL UPPER GASTROINTESTINAL ENDOSCOPY AND COLONOSCOPY PROCEDURE NOTE UPPER ENDOSCOPY Consent: Indications for the procedure and potential complications of bleeding, perforation, reaction to medications and missed diagnosis were discussed with the patient and informed consent was obtained. Instrument: Olympus GIF H 190 J mid size upper endoscope Monitoring: Vital signs and clinical assessment, continuous EKG monitoring, Pulse oximetry, Carbon Dioxide monitoring and blood pressure monitoring were done throughout the procedure. Procedure: The patient was placed in the left lateral decubitis position and pre-procedure medications were administered and a bite block was placed. The endoscope was inserted into the mouth and advanced under direct vision to the third part of duodenum. A careful inspection was made as the upper endoscope was withdrawn including a retroflexed examination of the proximal stomach; Findings and interventions are described below. Findings: Larynx:normal Esophagus: GE junction at 40 cm, diaphragm hiatus at 40 cm, normal mucosa Stomach: Normal mucosa. Biopsies were obtained. Grade 2 flap valve on retroflexed examination of the cardia. Duodenum: Normal bulb and descending duodenum, bx taken, one small AVM ablated with APC Intervention: Biopsies as noted above, APC COLONOSCOPY Instrument: Olympus variable stiffness pediatric scope 190L Colonoscopy Monitoring: Vital signs and clinical assessment, continuous EKG monitoring, Pulse oximetry, Carbon Dioxide monitoring and blood pressure monitoring were done throughout the procedure. Colon withdrawal time was 8 minutes. Procedure: The patient was placed in the left lateral decubitis position and pre-procedure medications were administered. After a digital rectal examination of the ano-rectum, the video colonoscope was inserted into the rectum and advanced through the colon to the cecum/TI. The colonoscope was slowly withdrawn in a retrograde panoramic fashion and the colon mucosa was carefully examined including a retroflexed view of the rectum. Findings and interventions are described below. Procedure Difficulty: easy Findings: Terminal Ileum-normal Cecum:normal Ascending Colon: distal area a flat AVM 6-8 mm was ablated using APC Transverse Colon -normal Descending Colon:normal Sigmoid Colon: normal Rectum: Retroflexion with small internal hemorrhoids, grade I Anorectum - normal Colon preparation: [place] Bowel Preparation Scale Right colon; 2 Transverse colon: 2 Left colon; 2 (0 = Unprepared colon segment with mucosa not seen due to solid stool that cannot be cleared. 1 = Portion of mucosa of the colon segment seen, but other areas of the colon segment not well seen due to staining, residual stool and/or opaque liquid. 2 = Minor amount of residual staining, small fragments of stool and/or opaque liquid, but mucosa of colon segment seen well. 3 = Entire mucosa of colon segment seen well with no residual staining, small fragments of stool or opaque liquid) Impression and Post Procedure Diagnosis: Endoscopy Findings: AVM Colonoscopy Findings: AVM internal hemorrhoid Plan: Await Pathology results Repeat Colonoscopy in 3-4 years due to FH of CRC and personal hx of polyps or earlier if clinically indicated High fiber diet leaflet avoid straining at stool, epsom salts and sitz bath, anusol supps or cream anemia may also be due to ecchymotic areas seen on skin from the plavix restart plavix tomorrow if has overt GI bleeding then capsule endoscopy Above findings were reviewed with the patient and relevant handouts were provided if indicated.
[2023-02-22 11:46] VITALS: BP 121/63; PULSE 102; RESP 18; TEMP 36.2; O2SAT 100
[2023-02-22 12:01] VITALS: BP 132/53; PULSE 106; RESP 20; TEMP 36.3; O2SAT 99
== END 2023-02-22 12:33 | disposition home or self-care (01) ==
PROVIDERS: PCP Internal Medicine; Visit Provider Internal Medicine Gastroenterology
PROC: (CPT 45380; principal; 2023-02-22 11:40)
DX: D64.9 Anemia, unspecified (principal); Z80.0 Family history of malignant neoplasm of digestive organs; Z86.010 Personal history of colon polyps; K31.819 Angiodysplasia of stomach and duodenum without bleeding; K64.0 First degree hemorrhoids; K21.9 Gastro-esophageal reflux disease without esophagitis; K25.9 Gastric ulcer, unspecified as acute or chronic, without hemorrhage or perforation; J44.9 Chronic obstructive pulmonary disease, unspecified; R91.1 Solitary pulmonary nodule; I25.2 Old myocardial infarction; I73.9 Peripheral vascular disease, unspecified; M79.7 Fibromyalgia; F10.21 Alcohol dependence, in remission; F17.210 Nicotine dependence, cigarettes, uncomplicated; Z79.899 Other long term (current) drug therapy; Z88.8 Allergy status to other drugs, medicaments and biological substances
CPT/HCPCS: 45380; 45388; 43239; 88305; 88342; 94640; C2618

== ENCOUNTER → 2023-02-22 09:48 | Outpatient (BNV) | payer OTHER, SELFPAY | PROVIDERS: PCP Internal Medicine; Visit Provider Internal Medicine Gastroenterology | DX: D64.9 Anemia, unspecified (principal); Z86.010 Personal history of colon polyps; Z80.0 Family history of malignant neoplasm of digestive organs; Q27.33 Arteriovenous malformation of digestive system vessel | CPT/HCPCS: 43239; 45388 ==

== ENCOUNTER 2023-03-09 08:22 | Outpatient (REF) | payer OTHER, SELFPAY ==
--- NOTE | 2023-03-09 09:59 | PFT_ITS ---
FINDINGS: Forced vital capacity 70%, FEV1 49%, FEV1/FVC ratio is 55. FEF 25/75 is 24% and MVV 36%. Post bronchodilator therapy, there is no significant change. Total lung capacity 110% and residual volume 140%. Diffusion capacity 35% CONCLUSION: 1. Severe obstructive airway disorder. 2. No response to bronchodilator therapy. 3. There is evidence of air trapping. 4. Clinical correlation is recommended. MD KATELYN Almodovar/[facility] / [id number]
== END 2023-03-09 08:23 | disposition home or self-care (01) ==
LOC: HO.RESP 08:22
PROVIDERS: PCP Internal Medicine; Visit Provider Internal Medicine
DX: J44.9 Chronic obstructive pulmonary disease, unspecified (principal); R91.8 Other nonspecific abnormal finding of lung field; F17.200 Nicotine dependence, unspecified, uncomplicated
CPT/HCPCS: 94010; 94727; 94729

== ENCOUNTER → 2023-03-09 09:59 | Outpatient (BNV) | payer OTHER, SELFPAY | PROVIDERS: PCP Internal Medicine; Visit Provider Internal Medicine | DX: J44.9 Chronic obstructive pulmonary disease, unspecified (principal) | CPT/HCPCS: 94060; 94727; 94729 ==

== ENCOUNTER 2023-04-24 09:16 | Outpatient (AMB) | payer OTHER, SELFPAY ==
--- NOTE | 2023-04-24 09:27 | A.OFFVIS_ITS ---
Intake Vital Signs 04/24/23 09:28 Height 5 ft 1 in Weight 86 lb BMI 16.2 BP 120/60 Blood Pressure Location Lt brachial Position Sitting Pulse 81 Pulse Source Pulse Oximeter Pulse Oximetry (%) 98 Oxygen Delivery Method Room Air Intake Visit Reasons: COPD Intake Note: pt is here for follow up and states that her breathing is not good, walking from room to room, she gets shortness of breath, with some tightness in chest. If if it gets real bad,she using ventolin and nebulizer. 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: No Allergies aspirin Adverse Reaction (Mild, Verified 04/24/23 09:58) Vomiting Medication List - Last Reconciled 04/24/23 by Nabeel Nichols MD albuterol sulfate 2.5 mg (6 mL) inhalation Q4-6H PRN 30 days cholecalciferol (vitamin D3) 1,250 mcg PO QWEEK 3 months clopidogrel 75 mg PO DAILY ferrous sulfate 325 mg PO DAILY pantoprazole 40 mg PO DAILY 90 days peg 3350-electrolytes 236-22.74-6.74 -5.86 gram (Golytely) 240 mL PO Q10M 1 day peg 3350-electrolytes 236-22.74-6.74 -5.86 gram 240 mL PO Q10M pramipexole 0.125 mg PO BEDTIME ropinirole 1 mg PO DAILY Symbicort 160-4.5 mcg/actuation (budesonide-formoterol) 2 puffs PO BID NS [Tylenol Arthritis ] Ventolin HFA 90 mcg/actuation (albuterol sulfate) 2 puffs inhalation QID PRN NS Do you need a note to return to daycare/school/sports/work: No HPI COPD HPI Details This 63 years old very pleasant female of a thin build is a long-time smoker, . And has not been able to quit She continues to smoke about half pack of cigarettes a day. She is participating in annual lung. Screening program She is here for follow-up of her COPD. She complains of shortness of breath on minimal effort like walking from 1 room to the other, or even up to 100 ft in [address] hallway. Also has frequent cough which is definitely related. To her smoking She has had no acute respiratory infection. Mental status remains stable. [facility] Medical History Smoker Idiopathic hypercalciuria Thyroid nodule Hx of angiography Vitamin D deficiency Goiter History of tachycardia GERD (gastroesophageal reflux disease) Skin lesion of back Immunization declined Gastritis Duodenitis Pyloric ulcer History of alcohol abuse Myopia of both eyes Vaccination declined by patient Papanicolaou smear declined Mammogram declined Anemia Smoker unmotivated to quit Restless leg syndrome Aortoiliac occlusive disease Tubular adenoma of colon Chronic Helicobacter pylori gastritis COPD (chronic obstructive pulmonary disease) Fibromyalgia Peripheral vascular disease Osteoporosis Surgical History Hx of coronary angiogram History of removal of skin mole Hx of colonoscopy History of surgery on lower extremity Hx of foot surgery History of surgical removal of lesion (~10/28/21) History of lung biopsy (~04/2021) History of exploratory thoracotomy (~04/2018) History of tonsillectomy History of endarterectomy (~05/2020) History of ankle surgery (~11/2011) History of myringotomy History of appendectomy History of tubal ligation Family History Father Substance use disorder Mother Substance use disorder Osteoporosis Brother Substance use disorder Sister Substance use disorder Sister Substance use disorder Brother Substance use disorder Social History Household Members: None Housing: House Housing Other:: mobile home Are you a primary career coordinator to a significant other at home: No Do you presently have visiting nurse or other home services: Yes ([employer] 1 x week) Unable to assess alcohol history related to: Unknown Alcohol intake: former Patient Tobacco Use Status: Current everyday Tobacco user Tobacco use type: Cigarette Cigarette Packs Per Day: 1 Cigarettes Per Day: 20.0 Years Smoked: 50+ e-Cigarette/Vaping Use: Never Used Second Hand Smoke Exposure: Yes Advance Directives Date on File: 07/19/21 service: No Current occupational status: disabled Current occupation: rt handed Current occupational exposures/hazards: No Cognitive needs: No Hearing needs: No Vision needs: Yes Review of Systems Const All systems reviewed & are unremarkable except as noted in HPI and below Reports weakness (Muscular weakness in lower extremities) Eyes Reports no additional complaints ENT Reports nasal congestion (Off and on) Card Denies chest pain, Denies irregular heart rhythm and Denies leg edema GI Reports constipation, Reports dyspepsia and Reports heartburn (Being treated with med is) Reports no additional complaints Musc Reports back pain (Chronic) Neuro Reports restless legs and Reports weakness (Muscular weakness in lower extremities) Psych Reports no additional complaints Endo Reports no additional complaints All/Lymph Reports no additional complaints Physical Exam Vital Signs: Last Vital Signs Pulse 81 04/24/23 09:28 BP 120/60 04/24/23 09:28 Pulse Ox 98 04/24/23 09:28 Oxygen Delivery Method Room Air 04/24/23 09:28 BMI result Body Mass Index 16.2 The patient is thin, and underweight Const General: comfortable, no acute distress, alert and awake Orientation/consciousness: patient oriented x3 HEENT Head: Yes normal to inspection General nose exam: No nasal polyps present and No nasal discharge present Face and sinus: Yes sinuses nontender Mouth: oropharynx normal Throat: Yes posterior oropharynx normal Eyes General: appearance normal, both eyes and all related structures Neck Neck: Yes normal visual inspection, Yes no lymphadenopathy, Yes trachea midline and Yes no JVD Thyroid: Thyroid normal Chest Chest palpation & inspection: normal inspection of the chest, normal palpation of entire chest wall and no tenderness Resp Other: Percussion note hyper-resonant, breath sounds are distant with. Prolonged expiratory phase No wheezes or rhonchi are heard Cardio Palpation: normal PMI Rate: regular rate Rhythm: regular rhythm Heart sounds: no gallops and no murmurs GI Palpation (GI): Soft to palpation, nontender, No hepatosplenomegaly present and no masses Auscultation: normal bowel sounds Back/Spine/Pelvis Thoracic/Lumbar Spine: thoracic and lumbar spine normal to inspection and thoraco-lumbar ROM limited Skin General skin exam: no rashes or lesions noted Neuro General: patient oriented x3, No gait normal (Walks with the walker) and no focal motor deficits Cranial nerves: Yes CN's II-XII intact bilaterally Extrem General: Yes normal to inspection, Yes no clubbing, cyanosis or edema, Yes no calf tenderness, No normal gait (Gait is impaired and she needs walker for walking) and Yes other (Left leg is thin and cold to touch) Psych Appearance: grossly normal and well kempt Speech and movement: Normal speech and movement present Results Reviewed Results Reviewed: Pulmonary function test on 03/09/2023 is reviewed The results are consistent with very severe obstructive airway disorder, and there was no significant response to bronchodilator therapy Assessment & Plan Assessment & Plan (1) COPD (chronic obstructive pulmonary disease): Comment: Physical examination as well as pulmonary function test consistent with very severe obstructive airway disorder/ Under the circumstances and with her continued smoking it is as stable as it can be. Had a good discussion with the patient and explained to her the results of PFT and also risks of continued smoking. MEDS: SYMBICORT 160-4.52 PUFFS B.I.D.. ALBUTEROL HFA 2 PUFFS Q 4-6 HOURS P.R.N. alternating with ALBUTEROL SOLUTION IN THE NEBULIZER Q 4-6 HOURS P.R.N.. SHE IS ADVISED TO CONTINUE THIS FOR A REGIMEN, FOR THE TIME BEING EDUCATED ABOUT THE PROPER USE OF ALBUTEROL AND, USE IT ONLY FOR EMERGENCY PURPOSES NOT A MAINTENANCE MED. Code(s): J44.9 - Chronic obstructive pulmonary disease, unspecified (2) Smoker unmotivated to quit: Comment: Patient continues to smoke, half pack of cigarettes a day, she is not well motivated to quit smoking completely. Risks of continued smoking explained to her. Code(s): F17.200 - Nicotine dependence, unspecified, uncomplicated (3) Pulmonary nodules: Comment: SHE IS BEING FOLLOWED UP FOR PULMONARY NODULES, LAST CT SCAN OF THE CHEST IN OCTOBER 2022 SHOWED STABILITY FOR THE PAST FEW YEARS. SHE CONTINUES TO BE AT A HIGH RISK FOR LUNG CANCER. I DISCUSSED WITH HER IN GREAT DETAIL. Code(s): R91.8 - Other nonspecific abnormal finding of lung field Coding Level of Care Code Est Pt Level 3 (43358) Diagnoses COPD (chronic obstructive pulmonary disease) J44.9 Smoker unmotivated to quit F17.200 Pulmonary nodules R91.8
[2023-04-24 09:28] VITALS: BP 120/60; PULSE 81; O2SAT 98; BMI 16.2
== END 2023-04-24 09:53 | disposition home or self-care (01) ==
PROVIDERS: PCP Internal Medicine; Visit Provider Internal Medicine
DX: J44.9 Chronic obstructive pulmonary disease, unspecified (principal); F17.200 Nicotine dependence, unspecified, uncomplicated; R91.8 Other nonspecific abnormal finding of lung field
CPT/HCPCS: 99213

== ENCOUNTER → 2023-04-24 09:16 | Outpatient (BNVA) | payer OTHER, SELFPAY | PROVIDERS: PCP Internal Medicine; Visit Provider Internal Medicine | DX: J44.9 Chronic obstructive pulmonary disease, unspecified (principal); R91.8 Other nonspecific abnormal finding of lung field; F17.210 Nicotine dependence, cigarettes, uncomplicated | CPT/HCPCS: 99212 ==

== ENCOUNTER 2023-07-21 14:20 | Emergency (ER) | payer OTHER, SELFPAY ==
[2023-07-21 14:28] VITALS: BP 162/74; PULSE 77; O2SAT 94
[2023-07-21 14:48] VITALS: BP 142/52; PULSE 97; RESP 18; TEMP 36.8; O2SAT 98; BMI 15.1
--- NOTE | 2023-07-21 14:51 | ED.GENADULT ---
HPI - General Adult General Chief complaint: Ear Problems Stated complaint: SORE THROAT EAR ACHE Source: patient, RN notes reviewed and old records reviewed Mode of arrival: ambulatory Limitations: no limitations History of Present Illness HPI narrative: 63-year-old female presents for evaluation of a sore throat and left ear pain. Patient reports that her symptoms started around Thanksgiving but him getting progressively worse She woke up with worsening pain today and was unable to tolerate soup. Denies any drainage from the ear Denies any fevers, chills She has been trying [id number] medications without relief She rates her pain as 10 out of 10 Related Data Home Medications Medication Instructions Recorded Confirmed clopidogrel 75 mg tablet 75 mg PO DAILY 11/03/20 02/20/23 Tylenol Arthritis 02/20/23 02/20/23 Previous Rx's Medication Instructions Recorded peg 3350-electrolytes 236 240 ml PO Q10M 1 day #4,000 mL 11/23/22 gram-22.74 gram-6.74 gram-5.86 gram solution (Golytely) pantoprazole 40 mg tablet,delayed 40 mg PO DAILY 90 days #90 tabs 12/06/22 release pramipexole 0.125 mg tablet 0.125 mg PO BEDTIME #30 tabs 12/06/22 Symbicort 160 mcg-4.5 2 puff PO BID #10.2 grams 01/19/23 mcg/actuation HFA aerosol inhaler (budesonide-formoterol) Ventolin HFA 90 mcg/actuation 2 puff inhalation QID PRN 01/19/23 aerosol inhaler (albuterol sulfate) shortness of breath or wheezing #8 grams albuterol sulfate 1.25 mg/3 mL 2.5 mg (6 mL) inhalation Q4-6H PRN 01/19/23 solution for nebulization shortness of breath or wheezing 30 days #90 mL peg 3350-electrolytes 236 240 ml PO Q10M #4,000 mL 02/15/23 gram-22.74 gram-6.74 gram-5.86 gram solution cholecalciferol (vitamin D3) 1,250 1,250 mcg PO QWEEK 3 months #13 04/08/23 mcg (50,000 unit) capsule caps ropinirole 1 mg tablet 1 mg PO BEDTIME #90 tabs 05/03/23 ferrous sulfate 325 mg (65 mg 325 mg PO BID 30 days #60 tabs 05/15/23 iron) tablet amoxicillin 875 mg-potassium 1 tab PO BID #20 tabs 07/21/23 clavulanate 125 mg tablet Allergies Allergy/AdvReac Type Severity Reaction Status Date / Time aspirin AdvReac Mild Vomiting Verified 07/21/23 14:47 Review of Systems Constitutional: Constitutional: Denies chills and Denies fever(s) ENT: Denies ear discharge, Reports otalgia, Reports sore throat, Denies throat swelling and Denies tongue swelling Cardiovascular: Cardiovascular: Denies dyspnea Respiratory: Respiratory: Reports cough and Denies dyspnea Gastrointestinal: Gastrointestinal: Denies abdominal pain, Denies nausea and Denies vomiting Musculoskeletal: Musculoskeletal: Denies back pain Allergic/Immunologic: Allergic/Immunologic: Denies throat swelling and Denies tongue swelling PMFSH Past Medical History Medical History Smoker Idiopathic hypercalciuria Thyroid nodule Hx of angiography Vitamin D deficiency Goiter History of tachycardia GERD (gastroesophageal reflux disease) Skin lesion of back Immunization declined Gastritis Duodenitis Pyloric ulcer History of alcohol abuse Myopia of both eyes Vaccination declined by patient Papanicolaou smear declined Mammogram declined Anemia Smoker unmotivated to quit Restless leg syndrome Aortoiliac occlusive disease Tubular adenoma of colon Chronic Helicobacter pylori gastritis COPD (chronic obstructive pulmonary disease) Fibromyalgia Peripheral vascular disease Osteoporosis Surgical History Hx of coronary angiogram History of removal of skin mole Hx of colonoscopy History of surgery on lower extremity Hx of foot surgery History of surgical removal of lesion (~10/28/21) History of lung biopsy (~04/2021) History of exploratory thoracotomy (~04/2018) History of tonsillectomy History of endarterectomy (~05/2020) History of ankle surgery (~11/2011) History of myringotomy History of appendectomy History of tubal ligation Family History Family History Father Substance use disorder Mother Substance use disorder Osteoporosis Brother Substance use disorder Sister Substance use disorder Sister Substance use disorder Brother Substance use disorder Social History Social History Household Members: None Housing: House Housing Other:: mobile home Are you a primary child care education coordinator to a significant other at home: No Do you presently have visiting nurse or other home services: 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) Unable to assess alcohol history related to: Unknown Alcohol intake: former Patient Tobacco Use Status: Current everyday Tobacco user Tobacco use type: Cigarette Cigarette Packs Per Day: 1 Cigarettes Per Day: 20.0 Years Smoked: 50+ e-Cigarette/Vaping Use: Never Used Second Hand Smoke Exposure: Yes Advance Directives Date on File: 07/19/21 service: No Current occupational status: disabled Current occupation: rt handed Current occupational exposures/hazards: No Cognitive needs: No Hearing needs: No Vision needs: Yes Physical Exam ED Const General: healthy appearing, comfortable, no acute distress, alert and awake Nutritional Appearance: well nourished Orientation/consciousness: patient oriented x3 HENMT Other: No postauricular edema, mastoid tenderness Head: Yes normocephalic and Yes atraumatic Ears: external ears normal, TM's abnormal bilaterally, right TM abnormal (Erythematous without perforation), TM normal on the left and EAC's normal Throat: Yes posterior oropharynx normal Eyes Eyelids: Yes eyelids normal Conjunctivae: conjunctivae normal Sclerae: sclerae normal Corneas: corneas normal Pupils: Equal, round and reactive pupils present EOM: EOMs intact bilaterally Neck Other: Left preauricular lymphadenopathy positive Neck: Yes full ROM Resp Effort & Inspection: normal respiratory effort, able to speak in complete sentences and not labored Skin General skin exam: elasticity normal Neuro General: patient oriented x3 Cranial nerves: Yes Equal, round and reactive pupils present and Yes Bilaterally intact EOM present Cognition (Neuro): normal cognition Extrem Other: Moving all extremities well without any obvious deformities Medical Decision Making Medical Decision Making MDM Narrative: 63-year-old male presents for evaluation of sore throat and ear pain. Offered strep throat testing but patient would prefer to be treated empirically. We will treat with Augmentin to cover acute otitis media as well as pharyngitis but her throat does not appear acutely infected. There is no erythema or exudates Differential Diagnosis Differential Diagnoses: The differential diagnosis associated with the presentation includes Upper respiratory infection Viral syndrome Pharyngitis Otitis media Otitis externa Discharge Plan Discharge Clinical Impression: Acute left otitis media Patient Disposition: Home, Self-Care Instructions: Ear Infection (ED) Additional Instructions: Take Augmentin twice daily Take this medication with food as it may cause upset stomach Use Tylenol as needed for pain Follow-up with your primary Prescriptions: New amoxicillin-pot clavulanate 875-125 mg tablet 1 tab PO BID Qty: 20 0RF No Action pantoprazole 40 mg tablet,delayed release (DR/EC) 40 mg PO DAILY 90 Days Qty: 90 2RF pramipexole 0.125 mg tablet 0.125 mg PO BEDTIME Qty: 30 5RF peg 3350-electrolytes 236-22.74-6.74 -5.86 gram recon soln 240 ml PO Q10M Qty: 4000 0RF Rx Instructions: until fecal effluent is clear cholecalciferol (vitamin D3) 1,250 mcg (50,000 unit) capsule 1,250 mcg PO QWEEK 90 Days Qty: 13 0RF ropinirole 1 mg tablet 1 mg PO BEDTIME Qty: 90 1RF Rx Instructions: administer 1-3 hours before bedtime ferrous sulfate 325 mg (65 mg iron) tablet 325 mg PO BID 30 Days Qty: 60 2RF Tylenol Arthritis clopidogrel 75 mg tablet 75 mg PO DAILY peg 3350-electrolytes [Golytely] 236-22.74-6.74 -5.86 gram recon soln 240 ml PO Q10M 1 Days Qty: 4000 0RF Rx Instructions: until fecal effluent is clear; do not exceed a total volume of 2,000 mL budesonide-formoterol [Symbicort] 160-4.5 mcg/actuation HFA aerosol inhaler 2 puff PO BID Qty: 10.2 5RF albuterol sulfate [Ventolin HFA] 90 mcg/actuation HFA aerosol inhaler 2 puff inhalation QID PRN (Reason: shortness of breath or wheezing) Qty: 8 4RF albuterol sulfate 1.25 mg/3 mL solution for nebulization 2.5 mg inhalation Q4-6H PRN (Reason: shortness of breath or wheezing) 30 Days Qty: 90 3RF
== END 2023-07-21 15:03 | disposition home or self-care (01) ==
LOC: HO.ED 15:00
PROVIDERS: Emergency Provider Emergency Medicine; PCP Internal Medicine
DX: H66.92 Otitis media, unspecified, left ear (principal); J02.9 Acute pharyngitis, unspecified; H92.02 Otalgia, left ear; Z79.899 Other long term (current) drug therapy
CPT/HCPCS: 99282; 99283

== ENCOUNTER 2023-08-13 13:28 | Emergency (ER) | payer OTHER, SELFPAY ==
[2023-08-13 14:51] VITALS: BP 119/55; PULSE 83; RESP 18; TEMP 36.3; O2SAT 99; BMI 15.1
--- NOTE | 2023-08-13 14:52 | ED_ITS ---
HPI - General Adult General Chief complaint: Ear Problems Stated complaint: L ear pain/Sore throat seen recently Time Seen by Provider: 08/13/23 16:35 Source: patient, RN notes reviewed and old records reviewed Mode of arrival: ambulatory History of Present Illness HPI narrative: 63-year-old female with a past medical history of cigarette smoking, goiter, gastritis, COPD, fibromyalgia, PVD, presenting to the ED complaining of persistent left ear pain and sore throat x a month. Patient was seen and treated in our ED on 07/21 for similar symptoms prescribed Augmentin which she reports provided minimal relief however symptoms recurred home with immediately. Admits to using OTC ear medications since without relief. Denies fever, chills, drainage from ear, hearing loss, difficulty or inability to swallow Related Data Home Medications Medication Instructions Recorded Confirmed clopidogrel 75 mg tablet 75 mg PO DAILY 11/03/20 02/20/23 Tylenol Arthritis 02/20/23 02/20/23 Previous Rx's Medication Instructions Recorded peg 3350-electrolytes 236 240 ml PO Q10M 1 day #4,000 mL 11/23/22 gram-22.74 gram-6.74 gram-5.86 gram solution (Golytely) pantoprazole 40 mg tablet,delayed 40 mg PO DAILY 90 days #90 tabs 12/06/22 release pramipexole 0.125 mg tablet 0.125 mg PO BEDTIME #30 tabs 12/06/22 Symbicort 160 mcg-4.5 2 puff PO BID #10.2 grams 01/19/23 mcg/actuation HFA aerosol inhaler (budesonide-formoterol) albuterol sulfate 1.25 mg/3 mL 2.5 mg (6 mL) inhalation Q4-6H PRN 01/19/23 solution for nebulization shortness of breath or wheezing 30 days #90 mL peg 3350-electrolytes 236 240 ml PO Q10M #4,000 mL 02/15/23 gram-22.74 gram-6.74 gram-5.86 gram solution ropinirole 1 mg tablet 1 mg PO BEDTIME #90 tabs 05/03/23 ferrous sulfate 325 mg (65 mg 325 mg PO BID 30 days #60 tabs 05/15/23 iron) tablet amoxicillin 875 mg-potassium 1 tab PO BID #20 tabs 12/08/23 clavulanate 125 mg tablet cholecalciferol (vitamin D3) 1,250 1,250 mcg PO QWEEK 3 months #13 08/03/23 mcg (50,000 unit) capsule caps Ventolin HFA 90 mcg/actuation 2 puff inhalation QID PRN 08/08/23 aerosol inhaler (albuterol sulfate) shortness of breath or wheezing #18 ea Allergies Allergy/AdvReac Type Severity Reaction Status Date / Time aspirin AdvReac Mild Vomiting Verified 08/13/23 14:51 Review of Systems Review of Systems: Constitutional: No Fever, No Chills ENT/Mouth: +Ear Pain, No Nasal Congestion, No Sinus Pain, No Hoarseness, + sore throat, No Rhinorrhea, No Swallowing Difficulty Cardiovascular: No Chest Pain, No SOB Respiratory: No Cough, No Sputum Gastrointestinal: No Nausea, No Vomiting, No Abdominal pain Musculoskeletal: No joint pain, No Myalgias, No Joint Swelling Skin: No Skin Lesions, No rash Neuro: No Weakness Yes all other systems are reviewed and are negative Constitutional: Constitutional: Reports as per [facility] Past Medical History Attestation statement: The following information was validated with the patient. Source: old records reviewed Medical History Smoker Idiopathic hypercalciuria Thyroid nodule Hx of angiography Vitamin D deficiency Goiter History of tachycardia GERD (gastroesophageal reflux disease) Skin lesion of back Immunization declined Gastritis Duodenitis Pyloric ulcer History of alcohol abuse Myopia of both eyes Vaccination declined by patient Papanicolaou smear declined Mammogram declined Anemia Smoker unmotivated to quit Restless leg syndrome Aortoiliac occlusive disease Tubular adenoma of colon Chronic Helicobacter pylori gastritis COPD (chronic obstructive pulmonary disease) Fibromyalgia Peripheral vascular disease Osteoporosis Surgical History Hx of coronary angiogram History of removal of skin mole Hx of colonoscopy History of surgery on lower extremity Hx of foot surgery History of surgical removal of lesion (~10/28/21) History of lung biopsy (~04/2021) History of exploratory thoracotomy (~04/2018) History of tonsillectomy History of endarterectomy (~05/2020) History of ankle surgery (~11/2011) History of myringotomy History of appendectomy History of tubal ligation Family History Family History Father Substance use disorder Mother Substance use disorder Osteoporosis Brother Substance use disorder Sister Substance use disorder Sister Substance use disorder Brother Substance use disorder Social History Social History Household Members: None Housing: House Housing Other:: mobile home Are you a primary primary care nurse practitioner to a significant other at home: No Do you presently have visiting nurse or other home services: Yes ([facility] x week) Unable to assess alcohol history related to: Unknown Alcohol intake: former Patient Tobacco Use Status: Current everyday Tobacco user Tobacco use type: Cigarette Cigarette Packs Per Day: 1 Cigarettes Per Day: 20.0 Years Smoked: 50+ e-Cigarette/Vaping Use: Never Used Second Hand Smoke Exposure: Yes Advance Directives: Yes Advance Directives on File: Yes Advance Directives Date on File: 07/19/21 service: No Current occupational status: disabled Current occupation: rt handed Current occupational exposures/hazards: No Cognitive needs: No Hearing needs: No Vision needs: Yes Physical Exam ED Vital Signs: Vital Signs - 24 hr 08/13/23 14:51 Temperature 97.4 F Pulse Rate 83 Respiratory Rate 18 Blood Pressure 119/55 L Pulse Oximetry 99 Oxygen Delivery Method Room Air BMI result Body Mass Index 15.1 Const General: cooperative, healthy appearing and no acute distress Orientation/consciousness: patient oriented x3 Limitations: no limitations HENMT Head: Yes normal to inspection and Yes atraumatic Ears: hearing grossly normal bilaterally, mastoids normal, normal EAC's, periauricular adenopathy on the left and unable to visualize TM (Due to cerumen impaction) on the left General nose exam: Normal external nose present Face and sinus: Yes normal facial exam Mouth: Normal oral and palatal mucosa present Throat: Yes posterior oropharynx normal, Yes tonsils normal, Yes uvula midline, No peritonsillar mass, No uvula laterally displaced and No uvular edema Eyes General: appearance normal, both eyes and all related structures EOM: EOMs intact bilaterally Neck Neck: Yes normal visual inspection and Yes no meningeal signs Resp Effort & Inspection: normal respiratory effort, not labored, no respiratory distress and no stridor Auscultation: clear to auscultation bilaterally, no crackles and no wheezes Cardio Rate: regular rate Heart sounds: S1 normal heart sound present and S2 normal heart sound present Skin Rashes: no rashes Wounds: no wounds Neuro General: patient oriented x3, tone normal and no meningeal signs Cranial nerves: Yes CN's II-XII intact bilaterally Gait exam (Neuro): Normal gait present Extrem General: Yes normal to inspection Course Course Course Narrative: This is a rapid medical exam: Additional HPI, ROS, PE not included below will be deferred to primary provider. Patient is a 63-year-old female presenting to the ED with complaint of left ear pain and sore throat since before . Seen here on 07/21 and treated with Augmentin. States this did not improve her symptoms at all. Complains of fatigue and mass to left side of neck. Unknown if she has had fevers but has had chills. Patient not able to tolerate otoscope exam in triage, will order Tylenol. Plan: strep and viral swabs -COVID/flu/RSV and rapid strep negatie >> successfully irrigated left ear with saline and peroxide, symptomatic relief provided after wax removed. TMs WNL, no erythema/bulging or effusion. No active infection at this time. Discussed with patient she needs to follow-up with ENT and her PCP > no abx indicated at this time, as patient just finished course. Did discuss needed close f/u for lymphadenopathy Results discussed with patient including worrisome signs and symptoms and strict return precautions, and when to return to the emergency department. They gustavo balized understanding and feel safe for discharge at this time. Procedures Ear Wax Removal Left Ear: Cerumenolytic Used: 5-10% Sodium Bicarb solution Results: Re-examined: cerumen removed completely TM Examination: TM(s) intact, normal appearance Ear Canal Exam: atraumatic Patient Tolerated Procedure: well Complications: no problems Technique: ear canal irrigated Medical Decision Making Medical Decision Making MDM Narrative: 63-year-old female with a past medical history of cigarette smoking, goiter, gastritis, COPD, fibromyalgia, PVD, presenting to the ED complaining of persistent left ear pain and sore throat x a month. On exam vital signs stable, NAD, nontoxic appearing, left TM not visible due to cerumen impaction. Mastoids WNL. Oropharynx WNL without uvular deviation, talking in complete sentences. +left sided post-auricular lymphadenopathy. mobile. no erythema or warmth. Low suspicion for chronic otitis externa, mastoiditis, MAINTENANCE DATA ANALYST or retropharyngeal abscess Plan: Viral testing, rapid strep, irrigate cerumen Please refer to course for remaining clinical decision making, interpretation of labs/imaging results, and discussions with consultants and/or family members. Differential Diagnosis Differential Diagnoses: The differential diagnosis associated with the prese ntation includes As above Lab Data MDM Lab Attestation statement: I reviewed the patient's lab results. Labs: Lab Results 08/13/23 08/13/23 Range/Units 15:26 16:37 COVID-19 ([facility]) Negative (Negative) COVID-19 Clin Com See Note Influenza Type A ([facility]) Negative (Negative) Influenza Type B ([facility]) Negative (Negative) Influenza A & B Note See Note S. pyogenes GrpA [facility] Negative (Negative) External Record Review External record reviewed: Inpatient record, Office record, Outpatient record, Prior outpatient labs, Prior outpatient radiology, Primary care record and Ou tside ED record Tests considered The following testing was considered but not selected: As above Prescription Management I considered prescription management with: Pain Medication and Antibiotic Chronic Conditions Patient?s care impacted by: Other Discharge Plan Discharge Clinical Impression: Cerumen impaction, Lymphadenopathy Patient Disposition: Home, Self-Care Instructions: Lymphadenopathy (ED) Additional Instructions: The ear wax was removed from her your successfully, her urine does not look infected You tested negative for COVID, flu, RSV and strep throat You do have an inflamed lymph node, please follow-up with her doctor as well as an ENT specialist for this if symptoms persist or worsen you develop fever, difficulty or inability to swallow, drainage from ear or hearing walks return to the ED Prescriptions: No Action pantoprazole 40 mg tablet,delayed release (DR/EC) 40 mg PO DAILY 90 Days Qty: 90 2RF pramipexole 0.125 mg tablet 0.125 mg PO BEDTIME Qty: 30 5RF peg 3350-electrolytes 236-22.74-6.74 -5.86 gram recon soln 240 ml PO Q10M Qty: 4000 0RF Rx Instructions: until fecal effluent is clear ropinirole 1 mg tablet 1 mg PO BEDTIME Qty: 90 1RF Rx Instructions: administer 1-3 hours before bedtime ferrous sulfate 325 mg (65 mg iron) tablet 325 mg PO BID 30 Days Qty: 60 2RF cholecalciferol (vitamin D3) 1,250 mcg (50,000 unit) capsule 1,250 mcg PO QWEEK 90 Days Qty: 13 0RF albuterol sulfate [Ventolin HFA] 90 mcg/actuation HFA aerosol inhaler 2 puff inhalation QID PRN (Reason: shortness of breath or wheezing) Qty: 18 4RF Tylenol Arthritis amoxicillin-pot clavulanate 875-125 mg tablet 1 tab PO BID Qty: 20 0RF clopidogrel 75 mg tablet 75 mg PO DAILY peg 3350-electrolytes [Golytely] 236-22.74-6.74 -5.86 gram recon soln 240 ml PO Q10M 1 Days Qty: 4000 0RF Rx Instructions: until fecal effluent is clear; do not exceed a total volume of 2,000 mL budesonide-formoterol [Symbicort] 160-4.5 mcg/actuation HFA aerosol inhaler 2 puff PO BID Qty: 10.2 5RF albuterol sulfate 1.25 mg/3 mL solution for nebulization 2.5 mg inhalation Q4-6H PRN (Reason: shortness of breath or wheezing) 30 Days Qty: 90 3RF Referrals: Jennifer Flores MD [Primary Care Provider] - 2 days Ben Vail [Physician] -
[2023-08-13 15:51] LABS: COVID-19 Test Negative (Negative); IDNOW Serial# 08D9AD1C
[2023-08-13 16:09] LABS: IDNOW Serial# BCCEAD1C; Influenza A Negative (Negative); Influenza B2 Negative (Negative)
[2023-08-13 16:50] LABS: IDNOW Serial# 58CA691E
[2023-08-13 16:51] LABS: Strep A Nucleic Acid Negative (Negative)
== END 2023-08-13 19:04 | disposition home or self-care (01) ==
PROVIDERS: Registered Nurse Emergency; Emergency Provider Emergency Medicine; PCP Internal Medicine
DX: H61.22 Impacted cerumen, left ear (principal); R59.1 Generalized enlarged lymph nodes; J44.9 Chronic obstructive pulmonary disease, unspecified; Z11.52 Encounter for screening for COVID-19
CPT/HCPCS: 69209; 87502; 87635; 87651; 99282; 99283

== ENCOUNTER 2023-08-18 14:38 | Outpatient (AMB) | payer OTHER, SELFPAY ==
--- NOTE | 2023-08-18 15:15 | MHC.OFFWIV ---
Intake Vital Signs 08/18/23 15:16 Height 5 ft 1 in Weight 78 lb 6 oz BMI 14.8 BP 140/68 H Blood Pressure Location Lt brachial Position Sitting Pulse 49 L Pulse Source Pulse Oximeter Temp 98.6 F Temp Source Oral Pulse Oximetry (%) 100 Oxygen Delivery Method Room Air Intake Visit Reasons: EP sore throat, Ear ache(lobby no car/dropped off) Intake Note: pt is here for continued sore throat and ear pain that she has been repeatedly seen at [facility] for she was treated for antibitotics the 1st time but pt says the last time nothing was done but she says the pain is worse and it hurts to eat Patient Tobacco Use Status: Current everyday Tobacco user Allergies aspirin Adverse Reaction (Mild, Verified 08/18/23 15:21) Vomiting Medication List - Last Reconciled 08/18/23 by Elina Montanez NP albuterol sulfate 2.5 mg (6 mL) inhalation Q4-6H PRN 30 days cholecalciferol (vitamin D3) 1,250 mcg PO QWEEK 3 months clopidogrel 75 mg PO DAILY ferrous sulfate 325 mg PO BID 30 days pantoprazole 40 mg PO DAILY 90 days peg 3350-electrolytes 236-22.74-6.74 -5.86 gram (Golytely) 240 mL PO Q10M 1 day peg 3350-electrolytes 236-22.74-6.74 -5.86 gram 240 mL PO Q10M pramipexole 0.125 mg PO BEDTIME ropinirole 1 mg PO BEDTIME Symbicort 160-4.5 mcg/actuation (budesonide-formoterol) 2 puffs PO BID NS [Tylenol Arthritis ] Ventolin HFA 90 mcg/actuation (albuterol sulfate) 2 puffs inhalation QID PRN NS Do you need a note to return to daycare/school/sports/work: No HPI HPI Comments History of Present Illness Details 63 y/o female patient who was seen at a Walk-in clinic today with c/o Lt ear pain and sorethroat. Pt reports symptoms started after Thanksgiving. She has been seen multiple times at [facility]. Had received Abx in the past with no much relief. Denies fevers, chills but reports dry cough, chest congestion, poor appetite and hard to swallow. Pt is currently an everyday smoker - smokes half to 1 ppk per day. She has been trying to quit, but her body craves Nicotine. [facility] Medical History Smoker Idiopathic hypercalciuria Thyroid nodule Hx of angiography Vitamin D deficiency Goiter History of tachycardia GERD (gastroesophageal reflux disease) Skin lesion of back Immunization declined Gastritis Duodenitis Pyloric ulcer History of alcohol abuse Myopia of both eyes Vaccination declined by patient Papanicolaou smear declined Mammogram declined Anemia Smoker unmotivated to quit Restless leg syndrome Aortoiliac occlusive disease Tubular adenoma of colon Chronic Helicobacter pylori gastritis COPD (chronic obstructive pulmonary disease) Fibromyalgia Peripheral vascular disease Osteoporosis Surgical History Hx of coronary angiogram History of removal of skin mole Hx of colonoscopy History of surgery on lower extremity Hx of foot surgery History of surgical removal of lesion (~10/28/21) History of lung biopsy (~04/2021) History of exploratory thoracotomy (~04/2018) History of tonsillectomy History of endarterectomy (~05/2020) History of ankle surgery (~11/2011) History of myringotomy History of appendectomy History of tubal ligation Family History Father Substance use disorder Mother Substance use disorder Osteoporosis Brother Substance use disorder Sister Substance use disorder Sister Substance use disorder Brother Substance use disorder Social History Household Members: None Housing: House Housing Other:: mobile home Are you a primary adult daycare coordinator to a significant other at home: No Do you presently have visiting nurse or other home services: Yes ([employer] 1 x week) Unable to assess alcohol history related to: Unknown Alcohol intake: former Patient Tobacco Use Status: Current everyday Tobacco user Tobacco use type: Cigarette Cigarette Packs Per Day: 1 Cigarettes Per Day: 20.0 Years Smoked: 50+ e-Cigarette/Vaping Use: Never Used Second Hand Smoke Exposure: Yes Advance Directives Date on File: 07/19/21 service: No Current occupational status: disabled Current occupation: rt handed Current occupational exposures/hazards: No Cognitive needs: No Hearing needs: No Vision needs: Yes Review of Systems Const All systems reviewed & are unremarkable except as noted in HPI and below Physical Exam Vital Signs: Last Vital Signs Temp 98.6 F 08/18/23 15:16 Pulse 49 L 08/18/23 15:16 BP 140/68 H 08/18/23 15:16 Pulse Ox 100 08/18/23 15:16 Oxygen Delivery Method Room Air 08/18/23 15:16 BMI result Body Mass Index 14.8 Const General: cooperative, no acute distress and tired appearing Limitations: ambulation with walker HEENT Head: Yes normocephalic Ears: external ears normal and other (Left ear unable to visualize TM due to wax. Right ear TM normal) Face and sinus: Yes sinuses nontender Mouth: moist mucous membranes Resp Effort & Inspection: able to speak in complete sentences Auscultation: clear to auscultation bilaterally Cardio Rate: regular rate Rhythm: regular rhythm Results AMB Rapid Strep AMB Rapid Strep Negative Last Edit by Gia March CMA on 08/18/23 15:37 Results Reviewed Results Reviewed: Laboratory Last Values Strep Scn Rapid Clinic Negative 08/18/23 15:31 Assessment & Plan Assessment & Plan (1) Ear pain, left: Code(s): H92.02 - Otalgia, left ear Plan: Acetaminophen for pain relief Pt purchased home ear lavage Advised to Quit smoking Rest, warm liquids with honey Continue f/u with Pulmon and PCP (2) Acute pharyngitis: Code(s): J02.9 - Acute pharyngitis, unspecified Qualifiers: Pharyngitis/tonsillitis etiology: unspecified etiology Qualified Code(s): J02.9 - Acute pharyngitis, unspecified Plan: Acetaminophen for pain relief Pt purchased home ear lavage Advised to Quit smoking Rest, warm liquids with honey Continue f/u with Pulmon and PCP (3) Smoker: Comment: Patient has lifelong history of smoking. Currently smoking one to one and half pack of cigarettes a day. SHE IS NOT MOTIVATED TO QUIT SMOKING. Code(s): F17.200 - Nicotine dependence, unspecified, uncomplicated Plan: Acetaminophen for pain relief Pt purchased home ear lavage Advised to Quit smoking Rest, warm liquids with honey Continue f/u with Pulmon and PCP Orders: Orders AMB Rapid Strep Screen 08/18/23 Z13.9 - Encounter for screening, unspecified Coding Level of Care Code Est Pt Level 3 (16114) Diagnoses Ear pain, left H92.02 Acute pharyngitis, unspecified etiology J02.9 Pharyngitis/tonsillitis etiology: unspecified etiology Smoker F17.200 Time Spent (min) 10
[2023-08-18 15:16] VITALS: BP 140/68; PULSE 49; TEMP 37; O2SAT 100; BMI 14.8
== END 2023-08-18 16:22 | disposition home or self-care (01) ==
PROVIDERS: PCP Internal Medicine; Visit Provider Nurse Practitioner Family
DX: H92.02 Otalgia, left ear (principal); J02.9 Acute pharyngitis, unspecified; F17.210 Nicotine dependence, cigarettes, uncomplicated
CPT/HCPCS: 87880; 99213

== ENCOUNTER 2023-09-19 13:01 | Outpatient (AMB) | payer OTHER, SELFPAY ==
[2023-09-19 13:12] VITALS: BP 136/54; PULSE 54; O2SAT 92; BMI 14.4
--- NOTE | 2023-09-19 13:12 | MHC.PC.OV ---
Vital Signs 09/19/23 13:12 Height 5 ft 1 in Weight 76 lb BMI 14.4 BP 136/54 L Blood Pressure Location Lt brachial Position Sitting Pulse 54 Pulse Source Pulse Oximeter Pulse Oximetry (%) 92 Oxygen Delivery Method Room Air Intake Visit Reasons: Follow up from Walk-in Ear pain, no Appetite Intake Note: Pt is here today c/o Lt ear pain into Lt side of throat pain: No appetite Allergies aspirin Adverse Reaction (Mild, Verified 09/19/23 13:12) Vomiting Tobacco use date assessed: 09/19/23 Dental Screening Dental Screen Date: 09/19/23 HPI Follow up from Walk-in Ear pain, no Appetite HPI Details 63-year-old lady with idiopathic hypercalciuria, history of thyroid nodule and goiter, history of gastritis and duodenitis, has COPD, aortoiliac occlusive disease, fibromyalgia, peripheral vascular disease in osteoporosis, here today complaining of persistent sore throat, and pain inside her left ear. She has had several visits to the ER placed on Augmentin, which has not afforded any relief. She had ear irrigation of left ear due to cerumen impaction a month ago, and was seen at the walk-in clinic recently for the same complaint, prescribed acetaminophen for pain, no infection seen in ear canal. Negative for COVID RSV and flu. Continues to smoke cigarettes states that she has cut down to just 10 cigarettes a day but has no desire to quit at present time and drinks at least 2-3 alcoholic drinks in a week. Complains of very poor appetite, and has been losing weight. [facility] Medical History (Updated 09/20/23 @ 06:51 by Jennifer Flores MD) Weight loss, unintentional Microcytic hypochromic anemia Left cervical lymphadenopathy Bilateral carotid bruits Smoker Idiopathic hypercalciuria Thyroid nodule Hx of angiography Vitamin D deficiency Goiter History of tachycardia GERD (gastroesophageal reflux disease) Skin lesion of back Immunization declined Gastritis Duodenitis Pyloric ulcer History of alcohol abuse Myopia of both eyes Vaccination declined by patient Papanicolaou smear declined Mammogram declined Anemia Smoker unmotivated to quit Restless leg syndrome Aortoiliac occlusive disease Tubular adenoma of colon Chronic Helicobacter pylori gastritis COPD (chronic obstructive pulmonary disease) Fibromyalgia Peripheral vascular disease Osteoporosis Surgical History Hx of coronary angiogram History of removal of skin mole Hx of colonoscopy History of surgery on lower extremity Hx of foot surgery History of surgical removal of lesion (~10/28/21) History of lung biopsy (~04/2021) History of exploratory thoracotomy (~04/2018) History of tonsillectomy History of endarterectomy (~05/2020) History of ankle surgery (~11/2011) History of myringotomy History of appendectomy History of tubal ligation Family History Father Substance use disorder Mother Substance use disorder Osteoporosis Brother Substance use disorder Sister Substance use disorder Sister Substance use disorder Brother Substance use disorder Social History Household Members: None Housing: House Housing Other:: mobile home Are you a primary patient care assistant to a significant other at home: No Do you presently have visiting nurse or other home services: Yes ([employer] 1 x week) Unable to assess alcohol history related to: Unknown Alcohol intake: former Patient Tobacco Use Status: Current everyday Tobacco user Tobacco use type: Cigarette Cigarette Packs Per Day: 1 Cigarettes Per Day: 20.0 Years Smoked: 50+ Packs Per Year: 0 Packs per year/per ci.00 e-Cigarette/Vaping Use: Never Used Second Hand Smoke Exposure: Yes Advance Directives Date on File: 07/19/21 service: No Current occupational status: disabled Current occupation: rt handed Current occupational exposures/hazards: No Cognitive needs: No Hearing needs: No Vision needs: Yes Questionnaire PHQ-9 Over the last 2 weeks, how often have you been bothered by any of the following problems? 1. Little interest or pleasure in doing things: not at all 2. Feeling down, depressed, or hopeless: not at all 3. Trouble falling or staying asleep, or sleeping too much: nearly every day 4. Feeling tired or having little energy: more than half the days 5. Poor appetite or overeating: several days 6. Feeling bad about yourself - or that you are a failure or have let yourself or your family down: several days 7. Trouble concentrating on things, such as reading the newspaper or watching television: not at all 8. Moving or speaking so slowly that other people could have noticed. Or the opposite - being so fidgety or restless that you have been moving around a lot more than usual: not at all 9. Thoughts that you would be better off or of hurting yourself in some way: not at all Total score: 7 Depression Screening Interpretation: Negative Depression Screening Done: Yes 06066 - PHQ-9 Billing: Yes Source: Developed by Drs. Scout Amaya, Terri Sánchez, Javier Fry and colleagues, with an educational nkechi from [employer]. Thrive Questionnaire Date Thrive assessed: 09/19/23 I am a: Patient What is your living situation today?: I have a steady place to live Within the past 12 months, did the food you bought not last and you didn't have the money to get more?: Never true Within the past 12 months, did you worry whether your food would run out before you got money to buy more?: Never true Do you have trouble paying for medicines?: No Do you have trouble getting transportation to medical appointments?: No Do you have trouble paying your heating and electricity bill?: No Do you have trouble taking care of your child, family member or friend?: No Do you have trouble with day-to-day activities such as bathing, preparing meals, shopping, managing finances, etc.?: No Are you currently unemployed and looking for a job?: No Are you interested in more education?: No THRIVE Score: 0 AUDIT C Alcohol Use Questionnaire (AUDIT-C) 1. How often do you have a drink containing alcohol?: 2-3 times a week 2. How many drinks containing alcohol do you have on a typical day when you are drinking?: 1 or 2 3. How often do you have six or more drinks on one occasion?: Never Total Score: 3 ALBINA-7 AMB Questionnaire ALBINA-7 Date ALBINA - 7 assessed: 09/19/23 Feeling nervous, anxious, or on edge: 0 = Not at all Not being able to stop or control worryin = Not at all Worrying too much about different things: 1 = Several days Trouble relaxin = Nearly every day Being so restless that it is hard to sit still: 1 = Several days Becoming easily annoyed or irritable: 0 = Not at all Feeling afraid as if something awful might happen: 3 = Nearly every day Total ALBINA-7 score (0-4 normal; 5-9 mild; 10-14 moderate; 15-21 severe): 8 Source: Developed by Drs. Scout Amaya, Terri Sánchez, Javier Fry and colleagues, with an educational nkechi from [employer]. ALBINA-7 Assessment Billing ALBINA-7 Assessment Tool: ALBINA-7 Assessment 35626 Review of Systems Const Reports fatigue, Denies fever(s), Denies headache(s), Reports poor appetite and Reports weight loss Eyes Reports no additional complaints and Reports requires corrective lenses ENT Reports as per HPI, Reports Normal hearing present, Denies ear discharge, Reports otalgia (left), Denies headache(s), Reports nasal congestion (Off and on) and Reports odynophagia Card Denies chest pain, Denies irregular heart rhythm, Denies leg edema and Reports dyspnea on exertion Resp Reports cough, Denies excessive phlegm production, Denies pain on inspiration, Reports dyspnea on exertion and Reports wheezing GI Denies abdominal pain, Denies melena, Denies hematochezia, Reports early satiety and Reports odynophagia Reports no additional complaints Musc Reports back pain (Chronic) Neuro Reports Normal hearing present, Denies headache(s) and Reports restless legs Psych Reports no additional complaints Endo Reports no additional complaints and Reports fatigue All/Lymph Reports no additional complaints Aller/Immun Reports wheezing Physical exam (Primary Care) Vital Signs: Last Vital Signs Pulse 54 09/19/23 13:12 BP 136/54 L 09/19/23 13:12 Pulse Ox 92 09/19/23 13:12 Oxygen Delivery Method Room Air 09/19/23 13:12 BMI result Body Mass Index 14.4 Tobacco/Smoking Status: Tobacco use Status Tobacco use date assessed 09/19/23 09/19/23 13:14 Patient Tobacco Use Status Current everyday Tobacco 09/19/23 13:14 Tobacco use type Cigarette 09/19/23 13:14 e-Cigarette/Vaping Use Never Used 09/19/23 13:14 PHQ-9: PHQ-9 Score PHQ-9: Total score 7 09/19/23 14:59 Depression Screening Interpretation: Negative Thrive Assessment: Date of Thrive Assessment Date Thrive assessed 09/19/23 09/19/23 14:59 Const Other: Telephone Sex Worker accompanying patient General: no acute distress, alert and awake Nutritional Appearance: underweight Orientation/consciousness: patient oriented x3 HENMT Ears: external ears normal, TM's normal bilaterally and EAC's normal General nose exam: Normal external nose present and No nasal discharge present Face and sinus: Yes face symmetric Mouth: Normal oral and palatal mucosa present, moist mucous membranes and other Neck Other: Ill-defined tender mass palpated on left anterior cervical area Neck: Yes full ROM and Yes supple Carotids: bruit bilateral Resp Auscultation: bronchial breath sounds Cardio Other: S1-S2 present regular rate and rhythm Neuro General: patient oriented x3, gait normal, tone normal, moves all extremities and no focal motor deficits Cranial nerves: Yes Normal hearing present Assessment and Plan Assessment & Plan (1) Bilateral carotid bruits: Code(s): R09.89 - Other specified symptoms and signs involving the circulatory and respiratory systems Plan: Ordered ultrasound of carotids bilateral (2) Smoker: Comment: Patient has lifelong history of smoking. Currently smoking one to one and half pack of cigarettes a day. SHE IS NOT MOTIVATED TO QUIT SMOKING. Code(s): F17.200 - Nicotine dependence, unspecified, uncomplicated Plan: Patient strongly advised to stop smoking, as smoking damages blood vessels, degenerative of joints and spine, damage to lungs and heart., predisposes to developing certain cancers like lung, breast, bladder, colon. Recommended to try decreasing cigarette use by 1-2 cigarettes a day. Advised to monitor what triggers are for smoking so that this can be discussed on the next office visit. We can discuss different options to quit smoking when ready. (3) Left cervical lymphadenopathy: Code(s): R59.0 - Localized enlarged lymph nodes Plan: Ultrasound of soft tissue head and neck ordered (4) Microcytic hypochromic anemia: Code(s): D50.9 - Iron deficiency anemia, unspecified Plan: Ordered CBC and iron profile (5) Smoker unmotivated to quit: Comment: Patient continues to smoke, half pack of cigarettes a day, she is not well motivated to quit smoking completely. Risks of continued smoking explained to her. Code(s): F17.200 - Nicotine dependence, unspecified, uncomplicated (6) Weight loss, unintentional: Code(s): R63.4 - Abnormal weight loss Orders: Orders US soft tiss head and/or neck 09/19/23 R59.0 - Localized enlarged lymph nodes Complete Blood Count Auto Diff Today D50.9 - Iron deficiency anemia, unspecified, R63.4 - Abnormal weight loss US carotid duplex BI 09/19/23 F17.200 - Nicotine dependence, unspecified, uncomplicated, R09.89 - Other specified symptoms and signs involving the circulatory and respiratory systems IRON PROFILE Today D50.9 - Iron deficiency anemia, unspecified, R63.4 - Abnormal weight loss Coding Level of Care Code Est Pt Level 4 (30981) Diagnoses Bilateral carotid bruits R09.89 Smoker F17.200 Left cervical lymphadenopathy R59.0 Microcytic hypochromic anemia D50.9 Smoker unmotivated to quit F17.200 Weight loss, unintentional R63.4 Additional Codes ALBINA-7 Assessment Billing - ALBINA-7 Assessment Tool: ALBINA-7 Assessment 34817 ([id number])
== END 2023-09-19 14:00 | disposition home or self-care (01) ==
PROVIDERS: PCP Internal Medicine; Visit Provider Internal Medicine
DX: R09.89 Other specified symptoms and signs involving the circulatory and respiratory systems (principal); F17.200 Nicotine dependence, unspecified, uncomplicated; R59.0 Localized enlarged lymph nodes; D50.9 Iron deficiency anemia, unspecified; R63.4 Abnormal weight loss
CPT/HCPCS: 99214

== ENCOUNTER 2023-09-29 09:46 | Outpatient (REF) | payer OTHER, SELFPAY ==
--- NOTE | ~2023-09-29 | US_ITS ---
EXAMINATION: US EXTRACRANIAL CAROTID DUPLEX, BILATERAL CLINICAL INFORMATION: Carotid bruit. History of tobacco. COMPARISON: None available. TECHNIQUE: Real-time ultrasound and Doppler techniques (integrating B-mode 2-D vascular images, Doppler spectral analysis and color-flow Doppler imaging) were utilized to interrogate the extracranial carotid arteries, the vertebral arteries and proximal subclavian arteries bilaterally. The degree of stenosis is determined by criteria similar to NASCET. FINDINGS: Right Side: 1. There is moderate atherosclerotic plaque seen in the bifurcation/proximal ICA region. 2. The common carotid artery PSV proximally is 104 cm/s and distally 102 cm/s. 3. The proximal internal carotid artery velocities are 174 cm/s systolic and 71 cm/s diastolic. 4. The proximal external carotid artery PSV is 245 cm/s. 5. The vertebral artery shows antegrade flow. 6. The subclavian artery waveforms are normal. Left Side: 1. There is moderate atherosclerotic plaque seen in the bifurcation/proximal ICA region. 2. The common carotid artery PSV proximally is 92 cm/s and distally 77 cm/s. 3. The proximal internal carotid artery velocities are 76 cm/s systolic and 39 cm/s diastolic. 4. The proximal external carotid artery PSV is 166 cm/s. 5. The vertebral artery shows antegrade flow. 6. The subclavian artery waveforms are normal. US/US carotid duplex BI IMPRESSION: 1. RIGHT: Moderate, hemodynamically significant stenosis of the proximal right internal carotid artery corresponding to a 50-79% stenosis by velocity criteria. 2. LEFT: Minimal, non-hemodynamically significant stenosis of the proximal left internal carotid artery corresponding to a 0-49% stenosis by velocity criteria.
--- NOTE | ~2023-09-29 | US_ITS ---
EXAMINATION: US SOFT TISSUE NECK CLINICAL INFORMATION: Localized enlarged lymph nodes. Left cervical lymphadenopathy, left neck lump area indicated by the patient for 4 months. COMPARISON: Thyroid ultrasound 03/23/2022. MRI neck 06/01/2021. TECHNIQUE: Linear transducer tolliver-scale and color Doppler examination with attention to the region of the left neck lump as indicated by the patient (level II) with imaging of the right side for comparison. FINDINGS: There is a 1.3 x 1.0 x 2.1 cm abnormal-appearing soft tissue mass with heterogeneous echotexture possibly representing an abnormal lymph node versus other mass. Adjacent 1.4 x 6 0.7 x 1.3 cm oval hypoechoic mass has the appearance of an atypical lymph node. Images of the corresponding region in the right neck at level II demonstrate a 1.3 x 0.4 x 0.7 cm lymph node with echogenic hilum. US/US soft tiss head and/or neck IMPRESSION: Left neck level II lump indicated by the patient corresponds to a 2.1 cm abnormal mass, possibly representing an abnormal lymph node and an adjacent atypical lymph node. Correlation with clinical exam recommended to determine further management including possible treatment, additional imaging with noncontrast enhanced CT scan of the neck and/or biopsy. Recommend follow-up ultrasound in 3 months.
== END 2023-09-29 09:47 | disposition home or self-care (01) ==
LOC: HO.HMGCX 09:46
PROVIDERS: PCP Internal Medicine; Visit Provider Internal Medicine
DX: R59.0 Localized enlarged lymph nodes (principal); R09.89 Other specified symptoms and signs involving the circulatory and respiratory systems; F17.200 Nicotine dependence, unspecified, uncomplicated
CPT/HCPCS: 76536; 93880

== ENCOUNTER 2023-10-23 13:50 | Outpatient (REF) | payer OTHER, SELFPAY ==
[2023-10-23 15:21] LABS: MANUAL DIFF FLAG NO
[2023-10-23 15:52] LABS: Basophils Percent Auto 0.3 % (0-2); Eosinophils Absolute Auto 0.1 X10*3/uL (0.0-0.4); Eosinophils Percent Auto 0.4 % (0-4); Imm Gran Abs Auto 0.07 X10*3/uL (0.00-0.03); Imm Gran Pct Auto 0.4 % (0.0-0.4); Lymphocytes Absolute Auto 1.4 X10*3/uL (1.2-4.9); Mean Corpuscular HGB Conc 24.2 g/dl (31.0-35.0); Mean Corpuscular Hemoglobin 16.2 pg (27.0-33.0); Mean Corpuscular Volume 66.9 fL (80.0-98.0); Mean Platelet Volume 9.2 fL (9.4-12.3); Monocytes Absolute Auto 0.9 X10*3/uL (0.1-1.2); Monocytes Percent Auto 5.5 % (2-11); Neutrophils Absolute Auto 13.1 x10*3/uL (2.0-8.3); Neutrophils Percent Auto 84.4 % (45-73); Platelet Count 325 X10*3/uL (160-400); Red Blood Count 3.59 X10*6/uL (4.20-5.50); Red Cell Distribution Width 19.3 % (11.0-16.0); White Blood Count 15.6 X10*3/uL (4.8-10.8)
[2023-10-23 16:06] LABS: Parathyroid Hormone Intact 44.1 pg/mL (8.7-77.1)
[2023-10-23 16:08] LABS: Albumin Level 4.3 g/dL (3.5-5.0); Blood Urea Nitrogen 10 mg/dL (9-16); Calcium 9.7 mg/dL (8.4-10.2); Estimated Glomerular Filt Rate > 60; Iron 23 mcg/dL (30-160); Percent Iron Saturation 5 % (15-50); Total Iron Binding Capacity 463 mcg/dL (228-428); Unsaturated Iron Binding 440 ug/dL
[2023-10-23 17:48] LABS: Hemoglobin 5.8 g/dl (12.0-16.0)
== END 2023-10-23 13:51 | disposition home or self-care (01) ==
LOC: HO.LAB 13:50
PROVIDERS: Internal Medicine Endocrinology, Diabetes & Metabolism; PCP Internal Medicine; Referring Provider Internal Medicine; Visit Provider Surgery
DX: M81.0 Age-related osteoporosis without current pathological fracture (principal); R63.4 Abnormal weight loss; D50.9 Iron deficiency anemia, unspecified; R59.0 Localized enlarged lymph nodes; Z79.899 Other long term (current) drug therapy
CPT/HCPCS: 36415; 82040; 82306; 82310; 82565; 83540; 83970; 84520; 85025; 99212

== ENCOUNTER 2023-10-23 13:50 | Outpatient (AMB) | payer OTHER, SELFPAY ==
--- NOTE | 2023-10-23 14:16 | A.OFFVIS_ITS ---
Intake Vital Signs 10/23/23 14:23 Height 5 ft 1 in BP 134/63 Blood Pressure Location Rt brachial Position Sitting Pulse 111 H Intake Visit Reasons: Enlarged lymph nodes Intake Note: This patient presents for an assessment for enlarged lymph nodes. Patient c/o; reports dysphagia, reports has not been able to eat a solid food since June 2023, reports has been to the ER x2 and walk-in x2. Head/Neck US: 09/29/2023 Carotid Doppler Study: 09/29/2023 Artillery Officer Required: No Accompanied by: Niece(HCP) Allergies aspirin Adverse Reaction (Mild, Verified 10/23/23 14:25) Vomiting Medication List - Last Reconciled 10/23/23 by Johnathan Alexander MD albuterol sulfate 2.5 mg (6 mL) inhalation Q4-6H PRN 30 days cholecalciferol (vitamin D3) 1,250 mcg PO QWEEK 3 months clopidogrel 75 mg PO DAILY ferrous sulfate 325 mg PO BID 30 days pantoprazole 40 mg PO DAILY pramipexole 0.125 mg PO BEDTIME ropinirole 1 mg PO BEDTIME Symbicort 160-4.5 mcg/actuation (budesonide-formoterol) 2 puffs PO BID NS [Tylenol Arthritis ] Ventolin HFA 90 mcg/actuation (albuterol sulfate) 2 puffs inhalation QID PRN NS HPI Enlarged lymph nodes HPI Details [age] year old female referred for an enlarged lymph node on the left neck. She had apparently been having this pain with swallowing for the past 5 months. She was sent for an ultrasound of the left neck and she was noted to have a 2.1 cm enlarged lymph node. She has a known smoker. She is being followed by a lung specialist because of this. She says that she has had difficulty swallowing for the past 5 months and therefore has been losing weight. [facility] Medical History Cervical lymphadenopathy Carotid stenosis, right Weight loss, unintentional Microcytic hypochromic anemia Left cervical lymphadenopathy Bilateral carotid bruits Smoker Idiopathic hypercalciuria Thyroid nodule Hx of angiography Vitamin D deficiency Goiter History of tachycardia GERD (gastroesophageal reflux disease) Skin lesion of back Immunization declined Gastritis Duodenitis Pyloric ulcer History of alcohol abuse Myopia of both eyes Vaccination declined by patient Papanicolaou smear declined Mammogram declined Anemia Smoker unmotivated to quit Restless leg syndrome Aortoiliac occlusive disease Tubular adenoma of colon Chronic Helicobacter pylori gastritis COPD (chronic obstructive pulmonary disease) Fibromyalgia Peripheral vascular disease Osteoporosis Surgical History Hx of coronary angiogram History of removal of skin mole Hx of colonoscopy History of surgery on lower extremity Hx of foot surgery History of surgical removal of lesion (~10/28/21) History of lung biopsy (~04/2021) History of exploratory thoracotomy (~04/2018) History of tonsillectomy History of endarterectomy (~05/2020) History of ankle surgery (~11/2011) History of myringotomy History of appendectomy History of tubal ligation Family History Father Substance use disorder Mother Substance use disorder Osteoporosis Brother Substance use disorder Sister Substance use disorder Sister Substance use disorder Brother Substance use disorder Social History Household Members: None Housing: House Housing Other:: mobile home Are you a primary patient care technician instructor to a significant other at home: No Do you presently have visiting nurse or other home services: Yes ([employer] 1 x week) Unable to assess alcohol history related to: Unknown Alcohol intake: former Patient Tobacco Use Status: Current everyday Tobacco user Tobacco use type: Cigarette Cigarette Packs Per Day: 1 Cigarettes Per Day: 20.0 Years Smoked: 50+ e-Cigarette/Vaping Use: Never Used Second Hand Smoke Exposure: Yes Advance Directives Date on File: 07/19/21 service: No Current occupational status: disabled Current occupation: rt handed Current occupational exposures/hazards: No Cognitive needs: No Hearing needs: No Vision needs: Yes Review of Systems Const Denies chills, Denies fever(s) and Reports weight loss ENT Reports dysphagia Card Denies chest pain, Denies dyspnea and Denies dyspnea on exertion Resp Denies cough, Denies dyspnea and Denies dyspnea on exertion GI Denies hematochezia, Denies change in bowel habits and Reports dysphagia Denies hematuria Musc Denies back pain and Denies limited range of motion Neuro Denies focal weakness and Denies convulsions Psych Denies depression and Denies mood swings Physical Exam Vital Signs: Last Vital Signs Pulse 111 H 10/23/23 14:23 BP 134/63 10/23/23 14:23 Const Other: Looks much older than her stated age, using a walker, frail looking General: comfortable and no acute distress Orientation/consciousness: patient oriented x3 HEENT Other: Edentulous on the lower jaw, no oral lesions seen Neck Other: I am unable to feel any obvious lymph node on the neck Resp Auscultation: clear to auscultation bilaterally Cardio Rhythm: regular rhythm GI Palpation (GI): Soft to palpation, nontender and no guarding Neuro General: patient oriented x3 Assessment & Plan Assessment & Plan (1) Cervical lymphadenopathy: Code(s): R59.0 - Localized enlarged lymph nodes Plan: Review of her ultrasound shows 2 small lymph nodes in the left neck. One is about 2.1 cm in diameter. I am actually unable to palpate for this at this time. I am going to order for a CAT scan of the neck. I have recommended to them to follow-up with her medical laboratory technical officer because of her dysphagia. I will see her again in the office her CT scan to review the findings. Orders: Orders Blood Urea Nitrogen Today R59.0 - Localized enlarged lymph nodes CT soft tissue neck w IV con Today R59.0 - Localized enlarged lymph nodes Creatinine Today R59.0 - Localized enlarged lymph nodes Coding Level of Care Code Est Pt Level 3 (73435) Diagnoses Cervical lymphadenopathy R59.0
[2023-10-23 14:23] VITALS: BP 134/63; PULSE 111
== END 2023-10-23 14:45 | disposition home or self-care (01) ==
PROVIDERS: PCP Internal Medicine; Referring Provider Internal Medicine; Visit Provider Surgery
DX: R59.0 Localized enlarged lymph nodes (principal)
CPT/HCPCS: 99213

== ENCOUNTER 2023-10-24 09:34 | Emergency (ER) | payer OTHER, SELFPAY ==
[2023-10-24] VITALS (10 sets, daily range): BP systolic 125–152; BP diastolic 56–97; PULSE 76–100; RESP 16–20; TEMP 36.5–36.9; O2SAT 91–97; BMI 13.0
--- NOTE | ~2023-10-24 | CT_ITS ---
EXAMINATION: CT ABDOMEN AND PELVIS WITH CONTRAST CLINICAL INFORMATION: Pain. Assess. Rule out malignancy COMPARISON: Previous chest CT October 2022 TECHNIQUE: Multidetector volumetric images were obtained from the superior aspect of the liver through the pubic symphysis following administration 85 mL of Omnipaque 350 intravenous contrast. Sagittal and coronal reformatted images were obtained on the technologist's workstation. Oral contrast: Yes This CT examination was performed using dose optimization techniques as appropriate, variously including the following: *Automated exposure control *Adjustment of mA and/or kV according to patient size (this includes techniques or standardized protocols for targeted exams where dose is matched to indication/reason for exam; i.e. extremities or head) *Use of iterative reconstruction technique DLP: 450 mGy-cm FINDINGS: LUNG BASES: 1 cm left lower lobe nodule and 4 mm peripheral or some pleural left lower lobe nodule adjacent to the fissure. These are stable previous chest CT October 2022. New patchy airspace disease at both lung bases in the bilateral lower lobes, lingula and right middle lobe representing pneumonia. LIVER, GALLBLADDER, AND BILIARY TREE: The liver is normal in size, shape, and attenuation. No focal hepatic lesion or biliary ductal dilatation is present. The gallbladder is unremarkable with no evidence of radiopaque gallstones, gallbladder wall thickening, or obvious pericholecystic inflammatory changes. PANCREAS: Unremarkable. SPLEEN: Unremarkable. ADRENAL GLANDS: Unremarkable. KIDNEYS AND URETERS: The kidneys are normal in size, shape, and attenuation. No hydronephrosis, hydroureter, or calculi seen. No perinephric stranding. BLADDER: Unremarkable. GASTROINTESTINAL TRACT: Stool throughout the colon suggestive of constipation. There are areas of bowel wall thickening of the distal small bowel mid pelvis for example axial image 53 series 11 small and large bowel is otherwise normal. The appendix is ABDOMINAL WALL: No significant hernia is appreciated. LYMPH NODES: Small low-attenuation upper retroperitoneal lymph nodes. No enlarged lymph nodes. No ascites. VASCULAR: There is severe atherosclerotic disease and femorofemoral bypass graft. PELVIC VISCERA: Unremarkable. OSSEOUS STRUCTURES: L3 vertebral body compression fracture, uncertain age. CT/CT abdomen pelvis w IV con IMPRESSION: New bibasilar pneumonia. Stable left lower lobe pulmonary nodules. Stool throughout the colon suggestive of constipation. Distal small bowel wall thickening suggestive of enteritis. L3 vertebral body compression fracture, uncertain age. Severe atherosclerotic disease and femorofemoral bypass graft. Fleischner guidelines were followed.
--- NOTE | ~2023-10-24 | CT_ITS ---
EXAMINATION: CT SOFT TISSUE NECK WITH CONTRAST CLINICAL INFORMATION: Pain. Evaluate for mass. COMPARISON: Soft tissue neck ultrasound 09/29/2023. TECHNIQUE: Following the intravenous administration of 85 mL of Omnipaque 350 intravenous contrast, helical imaging was performed in the axial plane with generation of coronal and sagittal reformatted images. This CT examination was performed using dose optimization techniques as appropriate, variously including the following: *Automated exposure control *Adjustment of mA and/or kV according to patient size (this includes techniques or standardized protocols for targeted exams where dose is matched to indication/reason for exam; i.e. extremities or head) *Use of iterative reconstruction technique DLP: 800 mGy-cm FINDINGS: There is a heterogeneously enhancing ulcerated nodular mucosal mass involving the epiglottis and left aryepiglottic fold. It appears to extend across the midline anteriorly with infiltration of the preepiglottic fat. There is leftward paraglottic extension up to the hyoid bone best visualized on axial image 54 of 125 series 5. No evidence of enhancing extralaryngeal disease. There is a heterogeneously enhancing necrotic left level II cervical lymph node best visualized on axial image 35 of 125 series 5 measuring up to 1.9 cm in maximal transaxial dimension. There is a smaller necrotic left level II cervical lymph node measuring 1.1 cm in diameter on axial image 39 of the same series. No mediastinal or axillary adenopathy is visualized within the [id number] of this examination. Pharyngeal mucosal spaces are symmetric. Parapharyngeal and retromaxillary fat is preserved. Surveyor Instrument Assistant spaces are symmetric. The left submandibular gland is atrophic. The right submandibular gland is unremarkable. The tongue base is grossly normal. The thyroid gland is normal and the remainder of the visualized visceral soft tissues are normal. There is a spiculated nodule with a central area of cavitation within the right upper lobe best visualized on axial image 92 of 125 series 5 measuring approximately 1.3 cm in diameter. Relatively severe centrilobular emphysema involves both lungs. There is scattered atheromatous caliber indication involving the aortic arch apex. Heavily calcified atheromatous plaque causes at least mild narrowing at the origins of both internal carotid arteries. Internal jugular veins fill symmetrically. There is advanced multilevel degenerative spondylosis of the cervical spine. Grossly no spinal canal compromise. The skull base is intact. No mastoid or middle ear effusion. No active paranasal sinus disease. Limited visualization of the intracranial anatomy reveals no abnormal finding. CT/CT soft tissue neck w IV con IMPRESSION: There is a heterogeneously enhancing ulcerated mucosal mass involving the epiglottis and left aryepiglottic fold. It appears to extend across the midline anteriorly with infiltration of the preepiglottic fat. There is leftward paraglottic extension up to the hyoid bone. No evidence of extralaryngeal extension of tumor. There are however necrotic left level II cervical lymph nodes, the largest of which measures 1.9 cm in maximal transaxial dimension. 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 There is a spiculated nodule with a central area of cavitation within the right upper lobe that measures approximately 1.3 cm in diameter. Continued follow-up as per recommendations provided on prior CT scans of the chest. There is also relatively severe centrilobular emphysema involving both lungs. Heavily calcified atheromatous plaque causes at least mild narrowing at the origins of both internal carotid arteries.
--- NOTE | 2023-10-24 09:47 | ED_ITS ---
HPI - General Adult General Chief complaint: Recheck/Abnormal Lab/Rx Stated complaint: ABNORMAL LABS Time Seen by Provider: 10/24/23 09:47 Source: patient and EMS Mode of arrival: EMS Limitations: no limitations History of Present Illness HPI narrative: Patient is a 63 year old assigned female at with a history of COPD, carotid artery stenosis, and anti-coagulant use presenting to the emergency department today after being informed of abnormal lab results. Patient states that she saw the general surgery team yesterday for work up regarding her inability to swallow. Patient states that they recommended she get a scan of her vessels and got blood work done for that yesterday. Patient states that she was called this morning and told her hemoglobin was low and to come to the ER. Patient denies any dark stools. Patient states that she hasn't been able to take her plavix or any of her medicine over the last 2 weeks due to her inability to swallow. Patient states that she is still smoking but significantly less than previously. Patient denies any dizziness, lightheadedness, abdominal pain, nausea, vomiting, fever, chills, blurry vision, double vision, loss of vision, chest pain, difficulty breathing, shortness of breath, back pain, night sweats, pain with urination, increased urinary frequency, increased urinary urgency, blood in her urine or stool, syncope or a near syncopal episode, recent trauma or falls, bowel incontinence, bladder incontinence, bowel retention, bladder retention, or any other complaints at this time. Relieving factors: none Exacerbating factors: none Associated symptoms: denies other symptoms Treatments prior to arrival: none Related Data Previous Rx's Medication Instructions Recorded ferrous sulfate 325 mg (65 mg 325 mg PO BID 30 days #60 tabs 05/15/23 iron) tablet cholecalciferol (vitamin D3) 1,250 1,250 mcg PO QWEEK 3 months #13 08/03/23 mcg (50,000 unit) capsule caps Ventolin HFA 90 mcg/actuation 2 puff inhalation QID PRN 08/08/23 aerosol inhaler (albuterol sulfate) shortness of breath or wheezing #18 ea pramipexole 0.125 mg tablet 0.125 mg PO BEDTIME #30 tabs 08/27/23 pantoprazole 40 mg tablet,delayed 40 mg PO DAILY #90 tabs 09/11/23 release albuterol sulfate 1.25 mg/3 mL 2.5 mg (6 mL) inhalation Q4-6H PRN 09/26/23 solution for nebulization shortness of breath or wheezing 30 days #90 mL Symbicort 160 mcg-4.5 2 puff PO BID #10.2 grams 10/03/23 mcg/actuation HFA aerosol inhaler (budesonide-formoterol) ropinirole 1 mg tablet 1 mg PO BEDTIME #90 tabs 10/22/23 Allergies Allergy/AdvReac Type Severity Reaction Status Date / Time aspirin AdvReac Mild Vomiting Verified 10/24/23 09:41 Review of Systems 2 Constitutional: Constitutional: Reports no additional constitutional complaints, Denies chills, Denies fever(s) and Denies night sweats Eyes: Eyes: Reports no additional eye complaints, Denies blurry vision, Denies change in vision, Denies diplopia, Denies eye discharge, Denies loss of vision and Denies eye pain ENT: Denies dizziness Comments: inability to swallow Cardiovascular: Cardiovascular: Reports no additional cardiovascular complaints, Denies chest pain, Denies lightheadedness, Denies Loss of Consciousness and Denies dyspnea Respiratory: Respiratory: Reports no additional respiratory complaints and Denies dyspnea Gastrointestinal: Gastrointestinal: Reports no additional gastrointestinal complaints, Denies abdominal pain, Denies melena, Denies hematochezia, Denies change in bowel habits and Denies change in stool character Genitourinary: Genitourinary: Denies hematuria, Denies urinary frequency, Denies dysuria, Denies urinary incontinence, Denies urinary hesitancy and Denies urinary urgency Musculoskeletal: Musculoskeletal: Reports no additional musculoskeletal complaints, Denies numbness and Denies tingling Neurologic: Denies dizziness, Denies loss of vision, Denies numbness and Denies tingling Psychiatric: Psychiatric: Reports no additional psychiatric complaints Endocrine: Endocrine: Reports no additional endocrine complaints Hematologic/Lymphatic: Hematologic/Lymphatic: Reports no additional hematologic/lymphatic complaints Allergic/Immunologic: Allergic/Immunologic: Reports no additional allergic/immunologic complaints PMFSH Past Medical History Attestation statement: The following information was validated with the patient. Source: old records reviewed and nursing notes reviewed Medical History (Updated 10/24/23 @ 18:04 by VASLIE Scruggs) Anemia Weight loss, unintentional Skin lesion of back Immunization declined Fracture of proximal end of fibula Contusion of leg, right Vaccination declined by patient Cervical lymphadenopathy Carotid stenosis, right Microcytic hypochromic anemia Left cervical lymphadenopathy Bilateral carotid bruits Smoker Idiopathic hypercalciuria Thyroid nodule Hx of angiography Vitamin D deficiency Goiter History of tachycardia GERD (gastroesophageal reflux disease) Gastritis Duodenitis Pyloric ulcer History of alcohol abuse Myopia of both eyes Papanicolaou smear declined Mammogram declined Smoker unmotivated to quit Restless leg syndrome Aortoiliac occlusive disease Tubular adenoma of colon Chronic Helicobacter pylori gastritis COPD (chronic obstructive pulmonary disease) Fibromyalgia Peripheral vascular disease Osteoporosis Surgical History Hx of coronary angiogram History of removal of skin mole Hx of colonoscopy History of surgery on lower extremity Hx of foot surgery History of surgical removal of lesion (~10/28/21) History of lung biopsy (~04/2021) History of exploratory thoracotomy (~04/2018) History of tonsillectomy History of endarterectomy (~05/2020) History of ankle surgery (~11/2011) History of myringotomy History of appendectomy History of tubal ligation Family History Family History Father Substance use disorder Mother Substance use disorder Osteoporosis Brother Substance use disorder Sister Substance use disorder Sister Substance use disorder Brother Substance use disorder Social History Social History Household Members: None Housing: House Housing Other:: mobile home Are you a primary acute care physical therapist to a significant other at home: No Do you presently have visiting nurse or other home services: Yes ([facility] x week) Unable to assess alcohol history related to: Unknown Alcohol intake: former Patient Tobacco Use Status: Current everyday Tobacco user Tobacco use type: Cigarette Cigarette Packs Per Day: 1 Cigarettes Per Day: 20.0 Years Smoked: 50+ Smoked in Last 30 Days: Yes e-Cigarette/Vaping Use: Never Used Second Hand Smoke Exposure: Yes Use of substances other than those prescribed or required for medical reasons: No Advance Directives: Yes Advance Directives on File: Yes Advance Directives Date on File: 07/19/21 Patient : No service: No Current occupational status: disabled Current occupation: rt handed Current occupational exposures/hazards: No Cognitive needs: No Hearing needs: No Vision needs: Yes Physical Exam ED Vital Signs: Vital Signs - 24 hr 10/24/23 09:41 10/24/23 09:49 10/24/23 11:30 Temperature 97.9 F 97.9 F 98.2 F Pulse Rate 89 92 79 Respiratory Rate 18 18 16 Blood Pressure 140/59 H 140/59 H 129/58 L Pulse Oximetry 97 95 Oxygen Delivery Method Room Air Room Air 10/24/23 11:45 10/24/23 11:46 10/24/23 14:00 Temperature 97.7 F 97.7 F 98.3 F Pulse Rate 87 80 84 Respiratory Rate 18 20 16 Blood Pressure 126/97 H 135/82 139/67 Pulse Oximetry 93 Oxygen Delivery Method Room Air 10/24/23 14:53 10/24/23 15:08 10/24/23 16:42 Temperature 98.1 F 98.0 F Pulse Rate 86 78 76 Respiratory Rate 18 18 16 Blood Pressure 146/63 H 127/56 L 139/66 Pulse Oximetry 91 L Oxygen Delivery Method Room Air BMI result Body Mass Index 13.0 Const General: cooperative, no acute distress, alert and awake Nutritional Appearance: cachectic, malnourished and thin Orientation/consciousness: patient oriented x3 Limitations: no limitations HENMT Head: Yes normal to inspection and Yes atraumatic Ears: hearing grossly normal bilaterally and external ears normal General nose exam: Normal external nose present, no nasal discharge noted and no epistaxis Face and sinus: Yes normal facial exam, No abrasion and No laceration Mouth: Normal oral and palatal mucosa present, no drooling and no muffled voice Eyes General: appearance normal, both eyes and all related structures Periorbital: periorbital findings normal Eyelids: Yes eyelids normal Conjunctivae: conjunctivae normal Pupils: Equal, round and reactive pupils present EOM: EOMs intact bilaterally Neck Neck: Yes normal visual inspection, Yes full ROM and Yes no lymphadenopathy Chest Chest palpation & inspection: normal inspection of the chest Resp Effort & Inspection: normal respiratory effort and able to speak in complete sentences GI Inspection: Yes normal to inspection Skin Other: pale Neuro General: patient oriented x3 and moves all extremities Cranial nerves: Yes Equal, round and reactive pupils present Cognition (Neuro): normal cognition Motor exam (neuro): 5/5 motor strength present throughout Sensory Exam: Normal double simultaneous stimulation for sensation Coordination: [id number] test normal Extrem General: Yes normal to inspection, Yes full ROM and Yes capillary refill normal Psych Appearance: grossly normal Mental Status: mental status grossly normal Affect: normal affect Attitude: cooperative Thought process: Normal thought process present Thought content: Normal thought content present Insight: Good insight present (Psych) Course Course Course Narrative: 10/26/23 Received call from lab that 1/2 sets of blood cultures were positive for gram + rods. Patient was transferred to [facility]. Results faxed to [facility] at , smiley Bhardwaj. Medications Administered Discontinued Medications Generic Name Dose Route Start Last Admin Trade Name Freq PRN Reason Stop Dose Admin Diatrizoate Meglum/Diatrizoate Sod 30 ml 10/24/23 15:37 10/24/23 15:38 Diatrizoate Meglumine, Sodium 30 Ml Solution PO 10/24/23 15:38 30 ml ONCE ONE Administration Sodium Chloride 100 mls @ 100 mls/hr 10/24/23 09:49 10/24/23 12:31 Ns IV 10/24/23 10:48 Infused ONCE ONE Infusion Ceftriaxone Sodium 1 gm/ 50 mls @ 100 mls/hr 10/24/23 17:33 10/24/23 18:23 Sodium Chloride IV 10/24/23 18:02 100 mls/hr ONCE ONE Administration Iohexol 85 ml 10/24/23 15:31 10/24/23 15:32 Iohexol 350 Mg/Ml 100 Ml Infus..Btl IV 10/24/23 15:32 85 ml ONCE ONE Administration Medical Decision Making Medical Decision Making [facility] Narrative: Patient is a 63 year old assigned female at with a history of COPD, carotid artery stenosis, and anti-coagulant use presenting to the emergency department today with low blood counts. Patient's physical exam was as noted in the physical exam portion of this note. Patient's blood work showed a hgb of 5.2 and iron studies consistent with iron deficiency anemia. Patient's CT soft tissue of the neck showed a large mass with local invasion the radiologist speculates it is squamous cell carcinoma. Patient's CT of the abdomen/pelvis showed evidence of constipation and bilateral pneumonia but was otherwise unremarkable. Patient was immediately given IV Ceftriaxone. Patient's clinical presentation is not consistent with sepsis (@1758). GI was consulted and agreed with iron studies and abdomen/pelvis scan. I spoke with our hospitalist team and they initially agreed with admission however, when the CT of the soft tissue neck was read - they determined the patient needed transfer for ENT coverage. Patient's airway is not obstructed. Patient is speaking in complete sentences. Patient is able to tolerate PO fluids without issue. [facility] and [facility] both declined transfer. Patient expressed concern of distance further than 1 hour away. I called and spoke to [place] who accepted transfer to the [place] ED under Dr. Jenkins. I explained my physical exam findings as well as all test results to the patient and the patient's niece. I answered all questions asked by the patient and the patient's niece. Patient and the patient's niece verbalized agreement and understanding with this treatment plan and transfer. Differential Diagnosis Differential Diagnoses: The differential diagnosis associated with the presentation includes Mass of throat Anemia Cancer Admission/Observation Consideration of admission/observation: Escalation of care including admission/observation considered Patient was initially admitted however, she will now be transferred to [place] ED under Dr. Jenkins. Consult Healthcare Provider Management of the patient was discussed with: Hospitalist (spoke to the hospitalist team as noted in the MDM Rationale portion of this note) and Color Receiver (consulted GI as noted in the MDM Rationale portion of this note) Lab Data [facility] Lab Attestation statement: I reviewed the patient's lab results. My interpretation of these results are in the MDM Rationale portion of this note. 10/24/23 10:07 10/24/23 10:07 Labs: Lab Results 10/24/23 10/24/23 10/24/23 Range/Units 10:07 11:08 18:08 WBC 7.6 (4.8-10.8) X10*3/uL RBC 3.19 L (4.20-5.50) X10*6/uL Hgb 5.2 L* (12.0-16.0) g/dl Hct 21.1 L (37.0-47.0) % MCV 66.1 L (80.0-98.0) fL MCH 16.3 L (27.0-33.0) pg MCHC 24.6 L (31.0-35.0) g/dl RDW 19.3 H (11.0-16.0) % Plt Count 252 (160-400) X10*3/uL MPV 8.8 L (9.4-12.3) fL Immature Gran % (Auto) 0.4 (0.0-0.4) % Neut % (Auto) 67.2 (45-73) % Lymph % (Auto) 22.3 (20-40) % [place] % (Auto) 7.6 (2-11) % Eos % (Auto) 2.1 (0-4) % Baso % (Auto) 0.4 (0-2) % Lymph # (Auto) 1.7 (1.2-4.9) X10*3/uL [place] # (Auto) 0.6 (0.1-1.2) X10*3/uL Eos # (Auto) 0.2 (0.0-0.4) X10*3/uL Baso # (Auto) 0.0 (0.0-0.2) X10*3/uL Abs Immat Gran (auto) 0.03 (0.00-0.03) X10*3/uL Absolute Neuts (auto) 5.1 (2.0-8.3) x10*3/uL Absolute Nucleated RBC 0.000 (0.0-0.012) X10*3/uL Nucleated RBC % (auto) 0.0 (0.0-0.2) /100WBC Haptoglobin 188 PT 11.5 (11.1-13.3) SEC INR 0.9 (0.9-1.1) APTT 27.8 (26.0-36.8) SEC Sodium 143 (135-145) mmol/L Potassium 4.2 (3.3-5.1) mmol/L Chloride 110 H (96-108) mmol/L Carbon Dioxide 26 (22-29) mmol/L Anion Gap 11 L (12-20) BUN 10 (9-16) mg/dL Creatinine 0.53 (0.5-1.4) mg/dL Estim Creat Clear Calc 54.8 Estimated GFR > 60 Random Glucose 99 (60-115) mg/dL Lactic Acid 0.8 (0.5-2.0) mmol/L Calcium 9.1 D (8.4-10.2) mg/dL Magnesium 1.8 (1.6-2.6) mg/dL Iron 15 L (30-160) mcg/dL TIBC 406 (228-428) mcg/dL % Saturation 4 L (15-50) % Unsat Iron Binding 391 ug/dL Total Bilirubin 0.3 (0.0-1.0) mg/dL Direct Bilirubin 0.1 (0.0-0.5) mg/dL AST 19 (5-31) U/L ALT 10 (0-31) U/L Alkaline Phosphatase 89 (39-117) U/L Lactate Dehydrogenase 172 (122-220) U/L Total Protein 6.5 (6.5-8.0) g/dL Albumin 3.9 (3.5-5.0) g/dL Blood Type O Positive Antibody Screen NEGATIVE Crossmatch See Detail Independent Interpretation I performed an independent interpretation of an: CT Scan Interpretation: My interpretation is in agreement with the radiologist's impression of these imaging studies. - EXAMINATION: CT ABDOMEN AND PELVIS WITH CONTRAST CLINICAL INFORMATION: Pain. Assess. Rule out malignancy COMPARISON: Previous chest CT October 2022 TECHNIQUE: Multidetector volumetric images were obtained from the superior aspect of the liver through the pubic symphysis following administration 85 mL of Omnipaque 350 intravenous contrast. Sagittal and coronal reformatted images were obtained on the technologist's workstation. Oral contrast: Yes This CT examination was performed using dose optimization techniques as appropriate, variously including the following: *Automated exposure control *Adjustment of mA and/or kV according to patient size (this includes techniques or standardized protocols for targeted exams where dose is matched to indication/reason for exam; i.e. extremities or head) *Use of iterative reconstruction technique DLP: 450 mGy-cm FINDINGS: LUNG BASES: 1 cm left lower lobe nodule and 4 mm peripheral or some pleural left lower lobe nodule adjacent to the fissure. These are stable previous chest CT October 2022. New patchy airspace disease at both lung bases in the bilateral lower lobes, lingula and right middle lobe representing pneumonia. LIVER, GALLBLADDER, AND BILIARY TREE: The liver is normal in size, shape, and attenuation. No focal hepatic lesion or biliary ductal dilatation is present. The gallbladder is unremarkable with no evidence of radiopaque gallstones, gallbladder wall thickening, or obvious pericholecystic inflammatory changes. PANCREAS: Unremarkable. SPLEEN: Unremarkable. ADRENAL GLANDS: Unremarkable. KIDNEYS AND URETERS: The kidneys are normal in size, shape, and attenuation. No hydronephrosis, hydroureter, or calculi seen. No perinephric stranding. BLADDER: Unremarkable. GASTROINTESTINAL TRACT: Stool throughout the colon suggestive of constipation. There are areas of bowel wall thickening of the distal small bowel mid pelvis for example axial image 53 series 11 small and large bowel is otherwise normal. The appendix is ABDOMINAL WALL: No significant hernia is appreciated. LYMPH NODES: Small low-attenuation upper retroperitoneal lymph nodes. No enlarged lymph nodes. No ascites. VASCULAR: There is severe atherosclerotic disease and femorofemoral bypass graft. PELVIC VISCERA: Unremarkable. OSSEOUS STRUCTURES: L3 vertebral body compression fracture, uncertain age. CT/CT abdomen pelvis w IV con IMPRESSION: New bibasilar pneumonia. Stable left lower lobe pulmonary nodules. Stool throughout the colon suggestive of constipation. Distal small bowel wall thickening suggestive of enteritis. L3 vertebral body compression fracture, uncertain age. Severe atherosclerotic disease and femorofemoral bypass graft. Fleischner guidelines were followed. Dictated By: Page Ledesma MD Signed By: Electronically signed by Page Ledesma MD 10/24/23 7752 - EXAMINATION: CT SOFT TISSUE NECK WITH CONTRAST CLINICAL INFORMATION: Pain. Evaluate for mass. COMPARISON: Soft tissue neck ultrasound 09/29/2023. TECHNIQUE: Following the intravenous administration of 85 mL of Omnipaque 350 intravenous contrast, helical imaging was performed in the axial plane with generation of coronal and sagittal reformatted images. This CT examination was performed using dose optimization techniques as appropriate, variously including the following: *Automated exposure control *Adjustment of mA and/or kV according to patient size (this includes techniques or standardized protocols for targeted exams where dose is matched to indication/reason for exam; i.e. extremities or head) *Use of iterative reconstruction technique DLP: 800 mGy-cm FINDINGS: There is a heterogeneously enhancing ulcerated nodular mucosal mass involving the epiglottis and left aryepiglottic fold. It appears to extend across the midline anteriorly with infiltration of the preepiglottic fat. There is leftward paraglottic extension up to the hyoid bone best visualized on axial image 54 of 125 series 5. No evidence of enhancing extralaryngeal disease. There is a heterogeneously enhancing necrotic left level II cervical lymph node best visualized on axial image 35 of 125 series 5 measuring up to 1.9 cm in maximal transaxial dimension. There is a smaller necrotic left level II cervical lymph node measuring 1.1 cm in diameter on axial image 39 of the same series. No mediastinal or axillary adenopathy is visualized within the [id number] of this examination. Pharyngeal mucosal spaces are symmetric. Parapharyngeal and retromaxillary fat is preserved. Drug Regulatory Affairs Specialist spaces are symmetric. The left submandibular gland is atrophic. The right submandibular gland is unremarkable. The tongue base is grossly normal. The thyroid gland is normal and the remainder of the visualized visceral soft tissues are normal. There is a spiculated nodule with a central area of cavitation within the right upper lobe best visualized on axial image 92 of 125 series 5 measuring approximately 1.3 cm in diameter. Relatively severe centrilobular emphysema involves both lungs. There is scattered atheromatous caliber indication involving the aortic arch apex. Heavily calcified atheromatous plaque causes at least mild narrowing at the origins of both internal carotid arteries. Internal jugular veins fill symmetrically. There is advanced multilevel degenerative spondylosis of the cervical spine. Grossly no spinal canal compromise. The skull base is intact. No mastoid or middle ear effusion. No active paranasal sinus disease. Limited visualization of the intracranial anatomy reveals no abnormal finding. CT/CT soft tissue neck w IV con IMPRESSION: There is a heterogeneously enhancing ulcerated mucosal mass involving the epiglottis and left aryepiglottic fold. It appears to extend across the midline anteriorly with infiltration of the preepiglottic fat. There is leftward paraglottic extension up to the hyoid bone. No evidence of extralaryngeal extension of tumor. There are however necrotic left level II cervical lymph nodes, the largest of which measures 1.9 cm in maximal transaxial dimension. 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 There is a spiculated nodule with a central area of cavitation within the right upper lobe that measures approximately 1.3 cm in diameter. Continued follow-up as per recommendations provided on prior CT scans of the chest. There is also relatively severe centrilobular emphysema involving both lungs. Heavily calcified atheromatous plaque causes at least mild narrowing at the origins of both internal carotid arteries. Dictated By: Scout Naranjo MD Signed By: Electronically signed by Scout Naranjo MD 10/24/23 9211 Radiology Impression Discussion of test interpretation with radiology: I have reviewed the radiologist's reading. Independent Historian Clinical information obtained from an independent historian. History obtained from or confirmed by: EMS (EMS provided additional history and confirmed the history provided by the patient.) Critical Care Time Critical Care Time Critical Care Time: Yes Total Critical Care Time: 123 Attestation: I spent 123 minutes of Critical Care Time with this patient. This does not include time spent on separately reported billable procedures. Discharge Plan Discharge Clinical Impression: Anemia, Throat mass, Pneumonia Patient Disposition: [facility] Transfer Details: [facility] - Dr. Jenkins accepting. Prescriptions: No Action ferrous sulfate 325 mg (65 mg iron) tablet 325 mg PO BID 30 Days Qty: 60 2RF cholecalciferol (vitamin D3) 1,250 mcg (50,000 unit) capsule 1,250 mcg PO QWEEK 90 Days Qty: 13 0RF albuterol sulfate [Ventolin HFA] 90 mcg/actuation HFA aerosol inhaler 2 puff inhalation QID PRN (Reason: shortness of breath or wheezing) Qty: 18 4RF pramipexole 0.125 mg tablet 0.125 mg PO BEDTIME Qty: 30 5RF pantoprazole 40 mg tablet,delayed release (DR/EC) 40 mg PO DAILY Qty: 90 0RF albuterol sulfate 1.25 mg/3 mL solution for nebulization 2.5 mg inhalation Q4-6H PRN (Reason: shortness of breath or wheezing) 30 Days Qty: 90 3RF budesonide-formoterol [Symbicort] 160-4.5 mcg/actuation HFA aerosol inhaler 2 puff PO BID Qty: 10.2 5RF ropinirole 1 mg tablet 1 mg PO BEDTIME Qty: 90 1RF Rx Instructions: administer 1-3 hours before bedtime Interventions: Acute Care Transfer Worksheet (ED) Last Done: 10/24/23 19:53 Discharge Date/Time: 10/24/23 19:53
[2023-10-24 10:11] LABS: MANUAL DIFF FLAG NO
[2023-10-24 10:12] LABS: Basophils Percent Auto 0.4 % (0-2); Eosinophils Absolute Auto 0.2 X10*3/uL (0.0-0.4); Eosinophils Percent Auto 2.1 % (0-4); Hematocrit 21.1 % (37.0-47.0); Imm Gran Abs Auto 0.03 X10*3/uL (0.00-0.03); Imm Gran Pct Auto 0.4 % (0.0-0.4); Lymphocytes Absolute Auto 1.7 X10*3/uL (1.2-4.9); Lymphocytes Percent Auto 22.3 % (20-40); Mean Corpuscular HGB Conc 24.6 g/dl (31.0-35.0); Mean Corpuscular Hemoglobin 16.3 pg (27.0-33.0); Mean Corpuscular Volume 66.1 fL (80.0-98.0); Mean Platelet Volume 8.8 fL (9.4-12.3); Monocytes Absolute Auto 0.6 X10*3/uL (0.1-1.2); Monocytes Percent Auto 7.6 % (2-11); Neutrophils Absolute Auto 5.1 x10*3/uL (2.0-8.3); Neutrophils Percent Auto 67.2 % (45-73); Platelet Count 252 X10*3/uL (160-400); Red Blood Count 3.19 X10*6/uL (4.20-5.50); Red Cell Distribution Width 19.3 % (11.0-16.0); White Blood Count 7.6 X10*3/uL (4.8-10.8)
--- NOTE | 2023-10-24 10:15 | PC.NURSE ---
patient a&ox3, iv inserted, labs drawn by tech, blood consent form signed with provider due to previously abn labs, pt uses walker at baseline, call baker within reach, will continue to monitor.
[2023-10-24 10:16] LABS: Hemoglobin 5.2 g/dl (12.0-16.0)
[2023-10-24 10:20] LABS: INTERNATIONAL NORM RATIO 0.9 (0.9-1.1); Prothrombin Time 11.5 SEC (11.1-13.3)
[2023-10-24 10:23] LABS: Partial Thromboplastin Time 27.8 SEC (26.0-36.8)
[2023-10-24 10:37] LABS: Alanine Aminotransferase 10 U/L (0-31); Albumin Level 3.9 g/dL (3.5-5.0); Alkaline Phosphatase 89 U/L (39-117); Anion Gap 11 (12-20); Aspartate Amino Transferase 19 U/L (5-31); Bilirubin Total 0.3 mg/dL (0.0-1.0); Blood Urea Nitrogen 10 mg/dL (9-16); Calcium 9.1 mg/dL (8.4-10.2); Carbon Dioxide 26 mmol/L (22-29); Chloride 110 mmol/L (96-108); Creatinine Clr Calc Pharmacy 54.8; Estimated Glomerular Filt Rate > 60; Glucose Random 99 mg/dL (60-115); Magnesium 1.8 mg/dL (1.6-2.6); Potassium 4.2 mmol/L (3.3-5.1); Sodium 143 mmol/L (135-145); Total Protein 6.5 g/dL (6.5-8.0)
[2023-10-24 10:48] LABS: Bilirubin Direct 0.1 mg/dL (0.0-0.5); Iron 15 mcg/dL (30-160); Lactate Dehydrogenase 172 U/L (122-220); Percent Iron Saturation 4 % (15-50); Total Iron Binding Capacity 406 mcg/dL (228-428); Unsaturated Iron Binding 391 ug/dL
--- NOTE | 2023-10-24 11:40 | PC.NURSE ---
Patient alert and oriented, respirations even and unlabored, sitting up in bed watching tv, vss, ns on monitor, RBCs infusing
--- NOTE | 2023-10-24 12:41 | PC.NURSE ---
patient a&ox3, blood continues to run-pt tolerating well, clinical research monitor intact, call baker within reach, will continue to monitor
--- NOTE | 2023-10-24 13:13 | PHA.MEDREC ---
Pharmacy Consult ? Medication Reconciliation Pharmacy has completed the medication reconciliation.Confirmed medications with patient and through claim history. Patient reports she has not taken her Iron, Vitamin D, or Pantoprazole in about 2 weeks because she is unable to swallow them.Also reports that she hasn't used her nebulizer in a month but does use her rescue inhaler everyday.
--- NOTE | 2023-10-24 14:02 | PM.GICN ---
History of Present Illness Data of Consult Service Date: 10/24/23 Primary Care Provider: Jennifer Flores MD HPI Reason for consult: anemia 63 year old female with a history of COPD, carotid artery stenosis, and smoking history who I am seeing for anemia and odynophagia. Patient had been seeing Dr Ponce for assessement for odynophagia and cervical LN. Labs were checked and her HGB was noted to be around 5 g/dl so she was told to come to the ED. Patient also comments she has had 5 months of painful swallowing with weight loss and poor appetite, nicole with solids and has been unable to take her meds or solid foods. She has been unable to take plavix last few weeks and denies taking nsaids. Patient denies any dizziness, lightheadedness, abdominal pain, nausea, vomiting, fever, chills, blurry vision, double vision, loss of vision, chest pain, difficulty breathing, shortness of breath, back pain, night sweats, pain with urination or hematuria. Her bowel habit has been normal w/o rectal bleeding or melena. Last colonoscopy/EGD: 03/05/23-- AVM ablated, prior colonoscopy with TA removed She still smokes, denies taking nsaids. CT neck done tonight with epiglottic mass extending across the midline, suspicious for SCC CT A/P with constipation, atherosclerosis, graft noted Review of Systems Review of Systems: Constitutional : No Weight loss, No Fever, No Chills ENT/Mouth : No sore throat, No Rhinorrhea Eyes: No Swelling, No Redness Cardiovascular : No Chest Pain, No SOB, No Edema Respiratory : No Cough, No Sputum, No Wheezing Gastrointestinal : see HPI Genitourinary : NO Dysuria, No Urinary Frequency, No Hematuria, No Urgency Musculoskeletal : No joint pain, No Myalgias, No Joint Swelling Skin : No Skin Lesions, No rash Neuro : No Weakness, No Numbness, No Dizziness, No Headache Psych : No Anxiety/Panic, No Depression Heme/Lymph: No Bruising, No Lymphadenopathy Endocrine : No Polyuria, No Polydipsia All other systems reviewed and are negative. [facility] Past Medical History Medical History (Updated 10/24/23 @ 18:04 by VASILE Scruggs) Anemia Weight loss, unintentional Skin lesion of back Immunization declined Fracture of proximal end of fibula Contusion of leg, right Vaccination declined by patient Cervical lymphadenopathy Carotid stenosis, right Microcytic hypochromic anemia Left cervical lymphadenopathy Bilateral carotid bruits Smoker Idiopathic hypercalciuria Thyroid nodule Hx of angiography Vitamin D deficiency Goiter History of tachycardia GERD (gastroesophageal reflux disease) Gastritis Duodenitis Pyloric ulcer History of alcohol abuse Myopia of both eyes Papanicolaou smear declined Mammogram declined Smoker unmotivated to quit Restless leg syndrome Aortoiliac occlusive disease Tubular adenoma of colon Chronic Helicobacter pylori gastritis COPD (chronic obstructive pulmonary disease) Fibromyalgia Peripheral vascular disease Osteoporosis Family History Family History Father Substance use disorder Mother Substance use disorder Osteoporosis Brother Substance use disorder Sister Substance use disorder Sister Substance use disorder Brother Substance use disorder Surgical History Surgical History Hx of coronary angiogram History of removal of skin mole Hx of colonoscopy History of surgery on lower extremity Hx of foot surgery History of surgical removal of lesion (~10/28/21) History of lung biopsy (~04/2021) History of exploratory thoracotomy (~04/2018) History of tonsillectomy History of endarterectomy (~05/2020) History of ankle surgery (~11/2011) History of myringotomy History of appendectomy History of tubal ligation Social History Social History Household Members: None Housing: House Housing Other:: mobile home Are you a primary hospice care consultant to a significant other at home: No Do you presently have visiting nurse or other home services: Yes ([employer] 1 x week) Unable to assess alcohol history related to: Unknown Alcohol intake: former Patient Tobacco Use Status: Current everyday Tobacco user Tobacco use type: Cigarette Cigarette Packs Per Day: 1 Cigarettes Per Day: 20.0 Years Smoked: 50+ Smoked in Last 30 Days: Yes e-Cigarette/Vaping Use: Never Used Second Hand Smoke Exposure: Yes Use of substances other than those prescribed or required for medical reasons: No Advance Directives: Yes Advance Directives on File: Yes Advance Directives Date on File: 07/19/21 Patient : No service: No Current occupational status: disabled Current occupation: rt handed Current occupational exposures/hazards: No Cognitive needs: No Hearing needs: No Vision needs: Yes Meds Allergies Allergy/AdvReac Type Severity Reaction Status Date / Time aspirin AdvReac Mild Vomiting Verified 10/24/23 09:41 Physical Exam Vital Signs: Vital Signs: Last Vital Signs Temp 97.7 F 10/24/23 11:46 Pulse 80 10/24/23 11:46 Resp 20 10/24/23 11:46 BP 135/82 10/24/23 11:46 Pulse Ox 95 10/24/23 09:49 O2 Del Method Room Air 10/24/23 09:49 BMI result Body Mass Index 13.0 EXAM: GENERAL: The patient is frail. VITAL SIGNS:see workflow HEENT: Nonicteric sclerae, PERRLA, EOMI. Oropharynx clear. Moist mucous membranes. Conjunctivae appear well pale. No thyroid mass. Carotid bruits both sides CHEST: Chest wall is nontender. HEART: Regular rate and rhythm without murmurs. LUNGS: Clear to auscultation bilaterally but reduced A/E and diminished sounds ABDOMEN: Soft, positive bowel sounds, nontender, no organomegaly.no flank tenderness SKIN: No rash, no excessive bruising, petechiae, or purpura. NEUROLOGIC: Cranial nerves II-XII intact without motor/sensory deficit. Psych: normal affect Results Labs 10/24/23 10:07 10/24/23 10:07 Labs: Short CBC 10/24/23 Range/Units 10:07 WBC 7.6 (4.8-10.8) X10*3/uL Hgb 5.2 L* (12.0-16.0) g/dl Hct 21.1 L (37.0-47.0) % Plt Count 252 (160-400) X10*3/uL BMP 10/24/23 10:07 Sodium 143 Potassium 4.2 Chloride 110 H Carbon Dioxide 26 BUN 10 Creatinine 0.53 Calcium 9.1 D Liver Function 10/24/23 Range/Units 10:07 Total Bilirubin 0.3 (0.0-1.0) mg/dL Direct Bilirubin 0.1 (0.0-0.5) mg/dL AST 19 (5-31) U/L ALT 10 (0-31) U/L Alkaline Phosphatase 89 (39-117) U/L Albumin 3.9 (3.5-5.0) g/dL Imaging CT scan - head: Attestation: I personally reviewed and interpreted this imaging study as follows: (epiglottic mass ) Assessment and Plan (1) Impaired swallowing associated with throat pain: Status: Acute (2) Anemia: Status: Acute Plan 1/ Microcytic anemia with iron def may have esophagitis, esophgeal mass, PUD, or recurrence of AVM but most likely anemia and symptoms are from the neck mass suspected to be SCC PLAN: 1/ Hold on EGD and colo for the moment, onc review and surgical consult for tissue sampling 2/ if antionette concerns for GI source of bleeding can review need for egd and colo 3/ can keep on low dose PPI meantime --try liquid suspension Procedures Date of Service Date of Service: 10/24/23
--- NOTE | 2023-10-24 14:17 | PC.NURSE ---
Patient watching tv. Patient reports mild abdominal cramping post drinking CT prep drink.
--- NOTE | 2023-10-24 15:08 | PC.NURSE ---
patient a&ox3, vss, pt tolerated transfusion well, currently sleeping, call baker within reach, willcontinue to monitor
[2023-10-24] MEDS: iohexoL 350 MG/ML 100 ML INFUS..BTL 85 ML IV (15:32)
[2023-10-24] MEDS: Diatrizoate Meglumine, Sodium 30 ML SOLUTION PO (15:38)
--- NOTE | 2023-10-24 16:49 | PC.NURSE ---
Patient up to bathroom at this time, patient reports sore throat and left ear pain since Nov
--- NOTE | 2023-10-24 17:46 | MHC.EDTECH ---
Addendum entered by Maribel Esqueda 10/24/23 17:56: DR TIJERINA ACCEPTED PT INTO [facility] AT 549P. Original Note: CALLED [facility] AT 530P TO DO A POSSIBLE PT TRANSFER PER THE REQUEST OF VASILE NATION. [facility] [place] CLOSED FOR TRANSFERS. CALLED [facility] AT 537P, THEY ARE NOT ACCEPTING PT. CALLED [facility] AT 542P.
[2023-10-24] MEDS: cefTRIAXone sodium 1 GM in 0.9 % Sodium Chloride 50 ML IV (18:23)
--- NOTE | 2023-10-24 18:24 | PC.NURSE ---
blood cultures obtained, iv abx given per order
[2023-10-24 18:27] LABS: Lactic Acid 0.8 mmol/L (0.5-2.0)
--- NOTE | 2023-10-24 18:40 | PC.NURSE ---
report called to zak graham ready to transfer
[2023-10-26 07:42] LABS: Haptoglobin 188
== END 2023-10-24 19:53 | disposition short-term general hospital (02) ==
PROVIDERS: Physician Assistant Medical; Emergency Provider Emergency Medicine Emergency Medical Services; PCP Internal Medicine
DX: J18.9 Pneumonia, unspecified organism (principal); D64.9 Anemia, unspecified; R07.0 Pain in throat; R22.1 Localized swelling, mass and lump, neck; R13.10 Dysphagia, unspecified; R79.89 Other specified abnormal findings of blood chemistry; Z79.899 Other long term (current) drug therapy
CPT/HCPCS: 36415; 36430; 70491; 74177; 80053; 82248; 83010; 83540; 83605; 83615; 83735; 85025; 85610; 85730; 86850; 86900; 86901; 86923; 87040; 87205; 96361; 96374; 99285; J0696; P9016; Q9967

== ENCOUNTER → 2023-10-24 09:58 | Outpatient (BNV) | payer OTHER, SELFPAY | PROVIDERS: Emergency Provider Emergency Medicine Emergency Medical Services; PCP Internal Medicine; Visit Provider Internal Medicine Gastroenterology | DX: R13.10 Dysphagia, unspecified (principal); R07.0 Pain in throat; D64.9 Anemia, unspecified | CPT/HCPCS: 99222 ==

== ENCOUNTER → 2023-11-06 08:34 | Outpatient (BNV) | payer OTHER, SELFPAY | PROVIDERS: PCP Internal Medicine; Visit Provider Internal Medicine | DX: C32.1 Malignant neoplasm of supraglottis (principal) | CPT/HCPCS: 99205; 99213 ==

== ENCOUNTER 2023-12-12 08:43 | Outpatient (AMB) | payer OTHER, SELFPAY ==
--- NOTE | 2023-12-12 09:31 | MHC.PC.OV ---
Vital Signs 12/12/23 09:33 Height 5 ft 1 in Weight 75 lb BMI 14.2 BP 130/60 Blood Pressure Location Rt brachial Position Sitting Pulse 63 Pulse Source Pulse Oximeter Pulse Oximetry (%) 96 Oxygen Delivery Method Room Air Intake Visit Reasons: c hdf Intake Note: Pt is here today for her HDF C Allergies aspirin Adverse Reaction (Mild, Verified 12/12/23 09:51) Vomiting Medication List - Last Reconciled 12/12/23 by Jennifer Flores MD albuterol sulfate 2.5 mg (6 mL) inhalation Q4-6H PRN 30 days ferrous sulfate 325 mg PO BID 30 days folic acid 1 mg PO DAILY food supplemt, lactose-reduced (Boost High Protein) 1 ea PO 2XD pantoprazole 40 mg PO DAILY pramipexole 0.125 mg PO BEDTIME ropinirole 1 mg PO BEDTIME Symbicort 160-4.5 mcg/actuation (budesonide-formoterol) 2 puffs PO BID NS tramadol 50 mg (10 mL) PO Q6H PRN Ventolin HFA 90 mcg/actuation (albuterol sulfate) 2 puffs inhalation QID PRN NS Tobacco use date assessed: 12/12/23 Dental Screening Dental Screen Date: 12/12/23 Did you have a dental visit in the last 12 months?: No Was dental information given to patient?: [facility] H[facility] Details 63-year-old lady, chronic smoker , 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 She had ultrasound-guided core biopsy of left cervical lymph node by Interventional Radiology at [facility] on 10/25/2023, which showed presence of metastatic squamous cell carcinoma. She underwent initial workup at [facility], where she had a CT of soft tissue neck revealing ulcerated mucosal mass involving epiglottis, left aryepiglottic fold with regional erin metastatic disease . CT abdomen/pelvis with contrast done at [facility] on 10/24/[address] was negative for metastasis. CT of chest at [facility] 10/2023 showed spiculated partially calcified right upper lobe nodule measuring 1.6 x 1.4 cm 6 surrounding rim and a solid 1 cm pulmonary nodule in the left lower lobe, 4 mm nodule in the right lower lobe, irregular 5 mm in the left upper lobe and numerous other smaller lung nodules, 1 cm left lower lobe is highly suspicious for malignancy. PET-CT performed in [place] on 11/26/2023 showed large epiglottic tumor involving left epiglottis extending inferiorly to level of vocal cords, 2 lymph node seen at 1.8 cm and 1.5 cm, and a 1 cm spiculated nodule right upper lobe.. She was being followed by Dr. Howard in the past for lung nodules, with a PET scan in 2020 not showing any significant finding. She is currently being followed by oncology at [facility], Dr. Baker, who referred patient to Radiation Oncology at [facility] with an appointment already for 12/14/2023. She continues to smoke, with no desire to quit, still has occasional dysphagia to solid foods, appetite however is good, able to tolerate a pureed diet and takes Boost supplements. She does not complain of any chest pain, no shortness of breath or wheezing or difficulty breathing. [facility] Medical History (Updated 12/12/23 @ 15:14 by Jennifer Flores MD) Pulmonary nodule 1 cm or greater in diameter Squamous cell carcinoma of epiglottis Weight loss, unintentional Skin lesion of back Immunization declined Fracture of proximal end of fibula Contusion of leg, right Vaccination declined by patient Cervical lymphadenopathy Carotid stenosis, right Microcytic hypochromic anemia Left cervical lymphadenopathy Bilateral carotid bruits Smoker Idiopathic hypercalciuria Thyroid nodule Hx of angiography Vitamin D deficiency Goiter History of tachycardia GERD (gastroesophageal reflux disease) Gastritis Duodenitis Pyloric ulcer History of alcohol abuse Myopia of both eyes Papanicolaou smear declined Mammogram declined Smoker unmotivated to quit Restless leg syndrome Aortoiliac occlusive disease Tubular adenoma of colon Chronic Helicobacter pylori gastritis COPD (chronic obstructive pulmonary disease) Fibromyalgia Peripheral vascular disease Osteoporosis Surgical History Hx of coronary angiogram History of removal of skin mole Hx of colonoscopy History of surgery on lower extremity Hx of foot surgery History of surgical removal of lesion (~10/28/21) History of lung biopsy (~04/2021) History of exploratory thoracotomy (~04/2018) History of tonsillectomy History of endarterectomy (~05/2020) History of ankle surgery (~11/2011) History of myringotomy History of appendectomy History of tubal ligation Family History Father Substance use disorder Mother Osteoporosis Substance use disorder Brother Substance use disorder Sister Substance use disorder Lung cancer Sister Substance use disorder Brother Substance use disorder Social History Household Members: None Housing: House Housing Other:: mobile home Are you a primary interior plant caretaker to a significant other at home: No Do you presently have visiting nurse or other home services: Yes ([employer] 1 x week) Unable to assess alcohol history related to: Unknown Alcohol intake: former Patient Tobacco Use Status: Current everyday Tobacco user Tobacco use type: Cigarette Cigarette Packs Per Day: 1 Years Smoked: 50+ Packs Per Year: 0 e-Cigarette/Vaping Use: Never Used Second Hand Smoke Exposure: Yes Advance Directives Date on File: 07/19/21 service: No Current occupational status: disabled Current occupation: rt handed Current occupational exposures/hazards: No Cognitive needs: No Hearing needs: No Vision needs: Yes Questionnaire PHQ-9 Over the last 2 weeks, how often have you been bothered by any of the following problems? Depression Screening Interpretation: Negative Depression Screening Done: Yes Source: Developed by Drs. Scout Amaya, Javier Wheeler and colleagues, with an educational nkechi from [employer]. Thrive Questionnaire Date Thrive assessed: 09/19/23 ALBINA-7 AMB Questionnaire ALBINA-7 Date ALBINA - 7 assessed: 09/19/23 Source: Developed by Terri Cook Kurt Kroenke and colleagues, with an educational nkechi from [employer]. Review of Systems Const Denies chills, Denies difficulty sleeping, Denies fever(s), Denies headache(s), Reports increased appetite, Reports weakness and Reports weight loss Eyes Reports no additional complaints ENT Reports dysphagia, Denies headache(s), Denies nasal congestion and Reports disequilibrium Card Denies chest pain, Denies rapid heart rate, Denies irregular heart rhythm and Denies dyspnea Resp Denies cough and Denies dyspnea GI Denies abdominal pain, Denies melena, Denies hematochezia, Denies change in bowel habits, Reports dysphagia, Denies dyspepsia and Denies nausea Denies hematuria, Denies difficulty voiding and Denies dysuria Musc Reports abnormal gait, Denies back pain and Reports muscle weakness Neuro Reports abnormal gait, Denies headache(s), Denies convulsions, Reports disequilibrium and Reports weakness Psych Reports no additional complaints Endo Reports no additional complaints All/Lymph Denies easy bleeding and Denies easy bruising Aller/Immun Reports no additional complaints Physical exam (Primary Care) Vital Signs: Last Vital Signs Pulse 63 12/12/23 09:33 BP 130/60 12/12/23 09:33 Pulse Ox 96 12/12/23 09:33 Oxygen Delivery Method Room Air 12/12/23 09:33 BMI result Body Mass Index 14.2 Tobacco/Smoking Status: Tobacco use Status Tobacco use date assessed 12/12/23 12/12/23 09:37 Patient Tobacco Use Status Current everyday Tobacco 12/12/23 09:33 Tobacco use type Cigarette 12/12/23 09:33 e-Cigarette/Vaping Use Never Used 12/12/23 09:33 Depression Screening Interpretation: Negative Thrive Assessment: Date of Thrive Assessment Date Thrive assessed 09/19/23 12/12/23 09:33 Const Other: Puller Out accompanying patient General: no acute distress, alert and awake Nutritional Appearance: underweight Orientation/consciousness: patient oriented x3 HENMT Ears: external ears normal General nose exam: Normal external nose present and No nasal discharge present Face and sinus: Yes face symmetric Mouth: Normal oral and palatal mucosa present and moist mucous membranes Eyes General: appearance normal, both eyes and all related structures Neck Other: Ill-defined tender mass palpated on left anterior cervical area Neck: Yes full ROM and Yes supple Carotids: bruit bilateral Resp Auscultation: diminished lung sounds Cardio Other: S1-S2 present regular rate and rhythm GI Palpation (GI): Soft to palpation, nontender and no guarding Auscultation: normal bowel sounds Neuro General: patient oriented x3, tone normal, moves all extremities and no focal motor deficits Extrem General: Yes no clubbing, cyanosis or edema and Yes no pedal edema Results Reviewed Results Reviewed: Name: Soraida Felix Age/Sex: 63/F : 1960 Unit#: [id number] Attend Dr: Mayte Baker MD Re11/28/23 Status: REG RCR Location: [facility]C Disch: SPEC : [id number] HARI: 11/06/23 STATUS: COMP REQ : [id number] RECD: 11/06/[address]: Mayte Baker MD COMP: 11/06/23 ENTERED: 11/06/[address]: Jennifer Flores MD ORDERED: CBC No Diff Test Result Flag Reference WBC 6.6 4.8-10.8 X10*3/uL RBC 4.64 # 4.20-5.50 X10*6/uL HGB 10.8 # L 12.0-16.0 g/dl HCT 38.4 # 37.0-47.0 % MCV 82.8 80.0-98.0 fL MCH 23.3 L 27.0-33.0 pg MCHC 28.1 L 31.0-35.0 g/dl RDW 30.5 H 11.0-16.0 % PLT 362 # 160-400 X10*3/uL MPV 9.0 L 9.4-12.3 fL NRBC Pct Auto 0.0 0.0-0.2 /100WBC NRBC Abs Auto 0.000 0.0-0.012 X10*3/uL Name: Soraida Felix Age/Sex: 63/F : 1960 Unit#: [id number] Attend Dr: Mayte Baker MD Re11/28/23 Status: REG RCR Location: [facility].ONC Disch: SPEC : [id number] HARI: 11/06/23 STATUS: COMP REQ : [id number] RECD: 11/06/[address]: Mayte Baker MD COMP: 11/06/23 ENTERED: 11/06/[address]: Jennifer Flores MD ORDERED: CMP, CEA/R Test Result Flag Reference Sodium 140 135-145 mmol/L Potassium 4.7 3.3-5.1 mmol/L CL 106 96-108 mmol/L CO2 27 22-29 mmol/L Gap 12 12-20 BUN 12 9-16 mg/dL Creat 0.50 0.5-1.4 mg/dL Estimated CrCl 123.3 Provided height and weight: 154.94 cm, 93.6 kg. eGFR (calculated from the MDRD study equation) and eCrCl (calculated from the Cockcroft-Gault equation) are based on different parameters and may not yield comparable results. If eCrCl result is absurd, please check patient's height/weight. EGFR > 60 NOTE: For -[place] individuals, multiply the result by 1.210. Chronic Kidney Disease: Estimated GFR < 60 mL/min/1.73m2 Severe Kidney Disease: Estimated GFR < 15 mL/min/1.73m2 Glucose, Random 92 60-115 mg/dL CA 9.9 # 8.4-10.2 mg/dL Total Bili 0.3 0.0-1.0 mg/dL AST (GOT) 26 5-31 U/L ALT (GPT) 18 0-31 U/L Protein, Total 6.9 6.5-8.0 g/dL Alb 4.1 3.5-5.0 g/dL Alk Phos 85 39-117 U/L CEA 3.80 ng/mL CEA Reference Range: 93.4% Non-Smokers = 0.0-3.0 ng/mL 95.6% Smokers = 0.0-5.0 ng/mL Assessment and Plan Assessment & Plan (1) Squamous cell carcinoma of epiglottis: Code(s): C32.1 - Malignant neoplasm of supraglottis (2) Pulmonary nodules: Comment: SHE IS BEING FOLLOWED UP FOR PULMONARY NODULES, LAST CT SCAN OF THE CHEST IN OCTOBER 2022 SHOWED STABILITY FOR THE PAST FEW YEARS. SHE CONTINUES TO BE AT A HIGH RISK FOR LUNG CANCER. I DISCUSSED WITH HER IN GREAT DETAIL. Code(s): R91.8 - Other nonspecific abnormal finding of lung field (3) Smoker unmotivated to quit: Comment: Patient continues to smoke, half pack of cigarettes a day, she is not well motivated to quit smoking completely. Risks of continued smoking explained to her. Code(s): F17.200 - Nicotine dependence, unspecified, uncomplicated (4) COPD (chronic obstructive pulmonary disease): Comment: Code(s): J44.9 - Chronic obstructive pulmonary disease, unspecified Plan Patient currently followed at [facility] oncology by Dr. Baker, who has referred her to [facility] radiation oncology, appointment already made for 12/14/2023. Patient strongly advised to quit smoking , as it was explained by Dr. Baker to patient she probably will need concurrent chemoradiation therapy at [facility]. She does have an appointment for follow-up with her in 3 weeks. Stressed importance of getting proper nutrition, advised eat iron rich foods, make protein shakes as she has difficulty swallowing. Coding Level of Care Code Est Pt Level 4 (32276) Diagnoses Squamous cell carcinoma of epiglottis C32.1 Pulmonary nodules R91.8 Smoker unmotivated to quit F17.200 COPD (chronic obstructive pulmonary disease) J44.9
[2023-12-12 09:33] VITALS: BP 130/60; PULSE 63; O2SAT 96; BMI 14.2
== END 2023-12-12 10:23 | disposition home or self-care (01) ==
PROVIDERS: PCP Internal Medicine; Visit Provider Internal Medicine
DX: C32.1 Malignant neoplasm of supraglottis (principal); R91.8 Other nonspecific abnormal finding of lung field; F17.200 Nicotine dependence, unspecified, uncomplicated; J44.9 Chronic obstructive pulmonary disease, unspecified
CPT/HCPCS: 99214

== ENCOUNTER 2024-05-25 13:21 | Inpatient (IN) | payer OTHER, SELFPAY ==
[2024-05-25] VITALS (9 sets, daily range): BP systolic 85–168; BP diastolic 54–94; PULSE 64–84; RESP 14–20; TEMP 36.9–37.1; O2SAT 95–100; BMI 15.2
--- NOTE | ~2024-05-25 | CT_ITS ---
EXAMINATION: CTA NECK WITH CONTRAST (STROKE) CTA BRAIN WITH CONTRAST (STROKE) CLINICAL INFORMATION: Suspect acute stroke. Assess for major vessel occlusion. Please call report. COMPARISON: Soft tissue neck CT on 10/24/2023 TECHNIQUE: CTA of the head and neck was performed in the axial plane from the mediastinum to the skull vertex using 70 mL Omnipaque 350 intravenous contrast. Additional reformatted multiplanar images including maximum intensity projection MIP images are generated on the CT workstation. This CT examination was performed using dose optimization techniques as appropriate, variously including the following: *Automated exposure control *Adjustment of mA and/or kV according to patient size (this includes techniques or standardized protocols for targeted exams where dose is matched to indication/reason for exam; i.e. extremities or head) *Use of iterative reconstruction technique DLP: 1357 mGy-cm FINDINGS: The degree of stenosis determined by criteria similar to NASCET. CTA Head: The left intracranial internal carotid artery is excluded. Extending from the carotid bulb to the [place] of [place].There is severe atherosclerotic disease bilaterally within the intracranial and internal carotid arteries, however the right side is patent. The anterior and middle cerebral arteries are patent with normal contrast enhancement and branching pattern. There is a normal anterior communicating artery complex. The vertebral and basilar arteries demonstrate normal enhancement without stenosis or occlusion. The posterior cerebral arteries have a normal caliber and branching pattern. The posterior communicating arteries are visualized. There is no evidence of aneurysm or arteriovenous malformation. CTA Neck: The visualized aortic arch and origins of the major vessels of atherosclerotic disease but are patent. Mild atheromatous plaque is noted at the right carotid bulb and in the proximal internal carotid artery, without significant stenosis by NASCET criteria. There is atherosclerotic disease at the origin of the common carotid artery and the proximal external carotid artery. There is atherosclerotic disease at the origin of the left common carotid artery, but is otherwise patent. There is mild calcified atherosclerotic plaque at the carotid bulbs and a region of nonatherosclerotic plaque occluding the internal carotid artery. There is atherosclerotic plaque at the origin of the external carotid artery. The cervical portions of the vertebral arteries demonstrate normal enhancement. There is no evidence of a significant stenosis or a dissection. There is been improvement of the irregular mass involving the epiglottis that was visualized on the prior exam. There is persistent mild irregularity of the area epiglottic folds. The left level 2 necrotic cervical lymph node is not visualized. There is a 0.5 cm hypoenhancing right thyroid nodule. Moderate-severe emphysema. Redemonstration of the linear irregular thick-walled consolidation at the right apex that measures 1.3 cm in diameter but up to 2.3 cm in length. Mild degenerative disease of the cervical spine. CT/CT angio head neck stroke IMPRESSION: 1. Occlusion of the left internal carotid artery from the carotid bulb to the carotid terminus. 2. No significant stenosis in the right internal carotid artery. 3. Patent [place] of [place]. 4. Improvement of the irregular mass involving the epiglottis that was visualized on the prior exam. 5. Redemonstration of the linear irregular thick-walled consolidation/nodule at the right apex. Emergent results were discussed with Swathi Noonan NP at 345pm on 05/25/24. Electronically signed by: Roslyn King MD 05/25/2024 03:55 PM EDT
--- NOTE | ~2024-05-25 | MR_ITS ---
EXAMINATION: MR BRAIN WITHOUT CONTRAST CLINICAL INFORMATION: Stroke COMPARISON: CTA head, CTA Head and Neck on 05/25/2024 TECHNIQUE: MRI of the brain was obtained using routine sequences without contrast. FINDINGS: There are several small foci of diffusion restriction bilaterally in the peripheral parietal lobes. There are several foci of restricted diffusion anterior to the region of encephalomalacia in the right posterior parieto-occipital region. There is linear T1 and T2 hyperintensity along the sulci of the right posterior parietal lobe with several small foci of susceptibility artifact. There is also associated encephalomalacia in this region. There is loss of the left internal carotid artery flow void. There is moderate periventricular and subcortical white matter hyperintensity most likely representing microangiopathic disease. The midline structures including the corpus callosum, cerebellar vermis, and pituitary gland are normal in appearance. There is no mass, mass effect, or extra-axial fluid collection. There is no midline shift or hydrocephalus. The basal subarachnoid cisterns and cerebral sulci are not effaced. MR/MR head/brain wo con IMPRESSION: 1. Several small foci of diffusion restriction bilaterally in the peripheral parietal lobes consistent with small acute strokes. 2. Punctate foci of subacute-chronic subarachnoid hemorrhage in the region of the right posterior parietal developing encephalomalacia. Electronically signed by: Roslyn King MD 05/25/2024 09:53 PM EDT
--- NOTE | ~2024-05-25 | XR_ITS ---
EXAMINATION: XR CHEST CLINICAL INFORMATION: Stroke protocol COMPARISON: 01/13/2023 TECHNIQUE: Frontal view of the chest was obtained. FINDINGS: Right IJ portacatheter tip projects over the right atrium. There is underlying emphysema. Nodular scarring in the right lung apex. A nodular opacity in the left lower lung field could represent a nipple shadow. There is bronchial wall thickening. No effusion or pneumothorax. XR/XR chest 1V IMPRESSION: 1. Bronchial wall thickening suggesting small airways disease. 2. Nodular opacity in the left lower lung field could represent a nipple shadow. Recommend repeating the exam with nipple markers. Electronically signed by: Scout Lopez MD 05/25/2024 02:44 PM EDT
--- NOTE | ~2024-05-25 | CT_ITS ---
CT HEAD WITHOUT IV CONTRAST STROKE CLINICAL INFORMATION: Stroke Protocol COMPARISON: No prior CT scan available for comparison. TECHNIQUE: Department standard protocol. This CT examination was performed using dose optimization techniques as appropriate, variously including the following: *Automated exposure control *Adjustment of mA and/or kV according to patient size (this includes techniques or standardized protocols for targeted exams where dose is matched to indication/reason for exam; i.e. extremities or head) *Use of iterative reconstruction technique DLP: 514 mGy-cm FINDINGS: CEREBRAL HEMISPHERES: There is an area of encephalomalacia in the posterior right parieto-occipital region likely sequela of an infarct in the distribution of the right posterior middle cerebral artery indeterminant age, no associated intracranial hemorrhage or mass effect. BRAIN PARENCHYMA: Deep white matter and paraventricular hypoattenuation, nonspecific; most likely changes secondary to chronic ischemia due to microvascular angiopathy. SUBDURAL SPACE: No bleed. BASAL GANGLIA AND PINEAL GLAND: Unremarkable VENTRICLES: Symmetric and normal in size. CEREBELLUM AND BRAINSTEM: No space-occupying mass, hemorrhage or acute infarct. CEREBELLOPONTINE ANGLES: No lesion found. ORBITS: No intraorbital mass. VESSELS: Unremarkable SKULL BASE: Unremarkable INCLUDED SINUSES AT SKULL BASE: Clear SKULL AND SKIN: No fracture or bone lesion found. CT/CT head for stroke IMPRESSION: 1. Deep white matter and periventricular hypoattenuation, nonspecific; most likely sequela of chronic microvascular angiopathy ischemia. 2. There is an area of encephalomalacia in the posterior right parieto-occipital region likely sequela of an infarct in the distribution of the posterior segment of the right middle cerebral artery indeterminant age, no associated intracranial hemorrhage or mass effect. (Referring physician staff is being called, by physician staff assistance, to be alerted of the above critical findings and recommendations.) 05/25/2024 1:16 PM CDT Electronically signed by: Tr Jurado MD 05/25/2024 02:17 PM EDT
--- NOTE | 2024-05-25 13:30 | PC.NURSE ---
Notified Breanna Houser PA-C of possible stroke. Pt. arrives via EMS non-verbal which is not her baseline. Per EMS, pt. had a stroke one month ago while receiving chemotherapy treatment at [facility]. PA ordering STAT CT at this time.
--- NOTE | 2024-05-25 13:30 | ECG_ITS ---
Test Reason : R/O STROKE Blood Pressure : / mmHG Vent. Rate : 073 BPM Atrial Rate : 073 BPM P-R Int : 102 ms QRS Dur : 062 ms QT Int : 426 ms P-R-T Axes : 080 065 087 degrees QTc Int : 469 ms Sinus rhythm with short ID with Premature supraventricular complexes Otherwise normal ECG When compared with ECG of 19-JUL-2021 10:28, Premature supraventricular complexes are now Present QT has lengthened Referred By: Tiki Houser Electronically Signed By:SHEYLA CANADA MD
--- NOTE | 2024-05-25 13:37 | PC.NURSE ---
Pt. at CT scan at this time.
[2024-05-25 13:51] LABS: MANUAL DIFF FLAG NO
--- NOTE | 2024-05-25 14:00 | PC.NURSE ---
Pt. returned to room and is on engine monitor at this time.
[2024-05-25] MEDS: iohexoL 350 MG/ML 100 ML INFUS..BTL 70 ML IV (14:03)
[2024-05-25 14:15] LABS: Basophils Percent Auto 0.6 % (0-2); Eosinophils Absolute Auto 0.1 X10*3/uL (0.0-0.4); Eosinophils Percent Auto 2.6 % (0-4); Hematocrit 34.4 % (37.0-47.0); Hemoglobin 10.5 g/dl (12.0-16.0); Imm Gran Abs Auto 0.02 X10*3/uL (0.00-0.03); Imm Gran Pct Auto 0.4 % (0.0-0.4); Lymphocytes Absolute Auto 0.7 X10*3/uL (1.2-4.9); Lymphocytes Percent Auto 14.6 % (20-40); Mean Corpuscular HGB Conc 30.5 g/dl (31.0-35.0); Mean Corpuscular Hemoglobin 24.9 pg (27.0-33.0); Mean Corpuscular Volume 81.7 fL (80.0-98.0); Mean Platelet Volume 8.6 fL (9.4-12.3); Monocytes Absolute Auto 0.6 X10*3/uL (0.1-1.2); Monocytes Percent Auto 11.4 % (2-11); Neutrophils Absolute Auto 3.6 x10*3/uL (2.0-8.3); Neutrophils Percent Auto 70.4 % (45-73); Platelet Count 229 X10*3/uL (160-400); Red Blood Count 4.21 X10*6/uL (4.20-5.50); Red Cell Distribution Width 20.5 % (11.0-16.0); White Blood Count 5.1 X10*3/uL (4.8-10.8)
[2024-05-25 14:16] LABS: Anion Gap 12 (12-20); Blood Urea Nitrogen 13 mg/dL (9-16); Calcium 9.2 mg/dL (8.4-10.2); Carbon Dioxide 25 mmol/L (22-29); Chloride 108 mmol/L (96-108); Cholesterol 194 mg/dL (<200); Creatinine Clr Calc Pharmacy 57.1; Estimated Glomerular Filt Rate > 60; Ethanol < 10 mg/dL; Glucose Random 91 mg/dL (60-115); HDL Cholesterol 54 mg/dL (>40); LDL Cholesterol Calculated 121 mg/dL (<100); Potassium 3.6 mmol/L (3.3-5.1); Sodium 141 mmol/L (135-145); Triglycerides 97 mg/dL (<150); Troponin-I High Sensitivity < 2.7 ng/L (<3.5-17.0)
[2024-05-25 14:18] LABS: Glucose, Whole Blood 94 mg/dL (60-115)
--- NOTE | 2024-05-25 14:23 | PC.NURSE ---
Pt. beginning to verbalize and GRULLON at this time. Answering simple yes or no questions.
[2024-05-25 14:24] LABS: INTERNATIONAL NORM RATIO 0.9 (0.9-1.1); Prothrombin Time 10.3 SEC (10.9-12.4)
[2024-05-25 14:27] LABS: Partial Thromboplastin Time 30.4 SEC (26.0-36.8)
[2024-05-25 14:29] LABS: Stroke Lab Use COMPLETE
--- NOTE | 2024-05-25 14:45 | ED.AMS ---
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 Per patient's HCP at baseline she is verbal, mildly slowed since recent CVA, and ambulatory with walker. HCP states patient recently refused rehab, lives home alone however is unable to perform ADLs. Patient on Plavix, recently discontinued Coumadin. Remaining history limited due to patient's acute mental status. Related Data Home Medications ?Medication ?Instructions ?Recorded ?Confirmed folic acid 1 mg tablet 1 mg PO DAILY 11/06/23 11/28/23 Previous Rx's ?Medication ?Instructions ?Recorded ferrous sulfate 325 mg (65 mg 325 mg PO BID 30 days #60 tabs 05/15/23 iron) tablet albuterol sulfate 1.25 mg/3 mL 2.5 mg (6 mL) inhalation Q4-6H PRN 09/26/23 solution for nebulization shortness of breath or wheezing 30 days #90 mL Symbicort 160 mcg-4.5 2 puff PO BID #10.2 grams 10/03/23 mcg/actuation HFA aerosol inhaler (budesonide-formoterol) food supplemt, lactose-reduced 1 ea PO 2XD #60 mL 11/28/23 0.06 gram-1 kcal/mL oral liquid (Boost High Protein) tramadol 5 mg/mL oral solution 50 mg (10 mL) PO Q6H PRN Pain 12/11/23 (Scale Score 7-10) #200 mL pantoprazole 40 mg tablet,delayed 40 mg PO DAILY #90 tabs 02/26/24 release Ventolin HFA 90 mcg/actuation 2 puff inhalation QID PRN for 05/07/24 aerosol inhaler (albuterol sulfate) wheezing #18 ea Allergies Allergy/AdvReac Type Severity Reaction Status Date / Time aspirin AdvReac Mild Vomiting Verified 05/25/24 13:59 Review of Systems Review of Systems: Yes all other systems are reviewed and are negative Constitutional: Constitutional: Reports as per [facility] Past Medical History Attestation statement: The following information was validated with the patient. Source: old records reviewed Medical History Pulmonary nodule 1 cm or greater in diameter Squamous cell carcinoma of epiglottis Weight loss, unintentional Skin lesion of back Immunization declined Fracture of proximal end of fibula Contusion of leg, right Vaccination declined by patient Cervical lymphadenopathy Carotid stenosis, right Microcytic hypochromic anemia Left cervical lymphadenopathy Bilateral carotid bruits Smoker Idiopathic hypercalciuria Thyroid nodule Hx of angiography Vitamin D deficiency Goiter History of tachycardia GERD (gastroesophageal reflux disease) Gastritis Duodenitis Pyloric ulcer History of alcohol abuse Myopia of both eyes Papanicolaou smear declined Mammogram declined Smoker unmotivated to quit Restless leg syndrome Aortoiliac occlusive disease Tubular adenoma of colon Chronic Helicobacter pylori gastritis COPD (chronic obstructive pulmonary disease) Fibromyalgia Peripheral vascular disease Osteoporosis Surgical History Hx of coronary angiogram History of removal of skin mole Hx of colonoscopy History of surgery on lower extremity Hx of foot surgery History of surgical removal of lesion (~10/28/21) History of lung biopsy (~04/2021) History of exploratory thoracotomy (~04/2018) History of tonsillectomy History of endarterectomy (~05/2020) History of ankle surgery (~11/2011) History of myringotomy History of appendectomy History of tubal ligation Family History Family History Father Substance use disorder Mother Osteoporosis Substance use disorder Brother Substance use disorder Sister Substance use disorder Lung cancer Sister Substance use disorder Brother Substance use disorder Social History Social History Household Members: None Housing: House Housing Other:: mobile home Are you a primary assurance services manager health care to a significant other at home: No Do you presently have visiting nurse or other home services: Yes ([employer] 1 x week) Unable to assess alcohol history related to: Unknown Alcohol intake: former Patient Tobacco Use Status: Current everyday Tobacco user Tobacco use type: Cigarette Cigarette Packs Per Day: 1 Years Smoked: 50+ Smoked in Last 30 Days: Yes e-Cigarette/Vaping Use: Never Used Second Hand Smoke Exposure: Yes Use of substances other than those prescribed or required for medical reasons: No Advance Directives: Yes Advance Directives on File: Yes Advance Directives Date on File: 12/12/23 Do you have a plan to hurt others: No Plan service: No Current occupational status: disabled Current occupation: rt handed Current occupational exposures/hazards: No Cognitive needs: No Hearing needs: No Vision needs: Yes Physical Exam ED Vital Signs: Vital Signs - 24 hr 05/25/24 13:50 05/25/24 13:56 05/25/24 14:09 Temperature 98.5 F Pulse Rate 78 82 73 Respiratory Rate 20 16 16 Blood Pressure 85/54 L 99/58 L 149/94 H Pulse Oximetry 100 100 99 Oxygen Delivery Method Room Air Room Air Room Air 05/25/24 14:12 05/25/24 14:37 05/25/24 15:20 Temperature 98.6 F Pulse Rate 68 72 74 Respiratory Rate 16 15 20 Blood Pressure 136/81 125/80 119/60 Pulse Oximetry 100 98 95 Oxygen Delivery Method Room Air Room Air Room Air BMI result Body Mass Index 15.2 Const General: no acute distress HENMT Head: Yes normal to inspection and Yes atraumatic Ears: hearing grossly normal bilaterally General nose exam: Normal external nose present Face and sinus: Yes normal facial exam Eyes General: appearance normal, both eyes and all related structures Pupils: Equal, round and reactive pupils present EOM: EOMs intact bilaterally Neck Neck: Yes normal visual inspection and Yes no meningeal signs Resp Effort & Inspection: normal respiratory effort and no respiratory distress Auscultation: clear to auscultation bilaterally Cardio Rate: regular rate Heart sounds: S1 normal heart sound present and S2 normal heart sound present GI Inspection: Yes normal to inspection Palpation (GI): Soft to palpation, nontender, no guarding and not rigid Skin Rashes: no rashes Wounds: no wounds Neuro Other: Aphasic, right-sided deficits appreciated (known from prior CVA), LUE & LLE weakness General: tone normal and no meningeal signs Cranial nerves: Yes Equal, round and reactive pupils present Extrem General: Yes normal to inspection NIH Stroke Scale Internal: Initial- Upon Arrival Level of Consciousness: Alert Level of Consciousness Questions: Answers neither question correctly Level of Consciousness Commands: Performs both tasks correctly Best Gaze: Normal Visual: No visual loss Facial Palsy: Normal Motor Arm (Right): No movement Motor Arm (Left): Some effort against gravity Motor Leg (Right): No movement Motor Leg (Left): No movement Limb Ataxia: Absent Sensory: Normal Best Language: Mild to moderate aphasia Dysarthia: Severe dysarthria Extinction and Inattention: No abnormality Score: 19 Course Course Course Narrative: -patient became verbal, speaking comprehensible words in CT scan > on re-evaluation after CTs patient appears more at baseline, A&O x3, verbal, following commands. -baseline anemia. Labs otherwise reassuring XR chest 1V IMPRESSION: 1. Bronchial wall thickening suggesting small airways disease. 2. Nodular opacity in the left lower lung field could represent a nipple shadow. Recommend repeating the exam with nipple markers. CT head for stroke IMPRESSION: 1. Deep white matter and periventricular hypoattenuation, nonspecific; most likely sequela of chronic microvascular angiopathy ischemia. 2. There is an area of encephalomalacia in the posterior right parieto-occipital region likely sequela of an infarct in the distribution of the posterior segment of the right middle cerebral artery indeterminant age, no associated intracranial hemorrhage or mass effect. (Referring physician staff is being called, by physician staff assistance, to be alerted of the above critical findings and recommendations.) 1610--CT angio head neck stroke IMPRESSION: 1. Occlusion of the left internal carotid artery from the carotid bulb to the carotid terminus. 2. No significant stenosis in the right internal carotid artery. 3. Patent [place] of [place]. 4. Improvement of the irregular mass involving the epiglottis that was visualized on the prior exam. 5. Redemonstration of the linear irregular thick-walled consolidation/nodule at the right apex. > Nueology Dr. Richmond consulted -162-- patient now reports R foot is numb which she reports is new. >164--spoke with Neurology, Dr. Richmond recommended initiating patient on aspirin. Plan is for admission. 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 On exam was initially hypotensive, aphasic, minimal movement to LUE. Right-sided deficits noted, baseline. Concern for acute CVA vs TIA vs ICH. Rule out metabolic infectious etiology. Stroke protocol initiated Plan: EKG, labs, UA, CXR, head CT, CTA, admission Please refer to course for remaining clinical decision making, interpretation of labs/imaging results, and discussions with consultants and/or family members. Differential Diagnosis Differential Diagnoses: The differential diagnosis associated with the presentation includes As above Admission/Observation Consideration of admission/observation: Escalation of care including admission/observation considered Consult Healthcare Provider Management of the patient was discussed with: Hospitalist and Scientific Informatics Project Leader Lab Data [facility] Lab Attestation statement: I reviewed the patient's lab results. 05/25/24 13:46 05/25/24 13:47 Labs: Lab Results 05/25/24 05/25/24 05/25/24 Range/Units 13:46 13:47 14:11 WBC 5.1 (4.8-10.8) X10*3/uL RBC 4.21 (4.20-5.50) X10*6/uL Hgb 10.5 L (12.0-16.0) g/dl Hct 34.4 L (37.0-47.0) % MCV 81.7 (80.0-98.0) fL MCH 24.9 L (27.0-33.0) pg MCHC 30.5 L (31.0-35.0) g/dl RDW 20.5 H (11.0-16.0) % Plt Count 229 D (160-400) X10*3/uL MPV 8.6 L (9.4-12.3) fL Immature Gran % (Auto) 0.4 (0.0-0.4) % Neut % (Auto) 70.4 (45-73) % Lymph % (Auto) 14.6 L (20-40) % Summers % (Auto) 11.4 H (2-11) % Eos % (Auto) 2.6 (0-4) % Baso % (Auto) 0.6 (0-2) % Lymph # (Auto) 0.7 L (1.2-4.9) X10*3/uL Summers # (Auto) 0.6 (0.1-1.2) X10*3/uL Eos # (Auto) 0.1 (0.0-0.4) X10*3/uL Baso # (Auto) 0.0 (0.0-0.2) X10*3/uL Abs Immat Gran (auto) 0.02 (0.00-0.03) X10*3/uL Absolute Neuts (auto) 3.6 (2.0-8.3) x10*3/uL Absolute Nucleated RBC 0.000 (0.0-0.012) X10*3/uL Nucleated RBC % (auto) 0.0 (0.0-0.2) /100WBC PT 10.3 L (10.9-12.4) SEC INR 0.9 (0.9-1.1) APTT 30.4 (26.0-36.8) SEC Sodium 141 (135-145) mmol/L Potassium 3.6 D (3.3-5.1) mmol/L Chloride 108 (96-108) mmol/L Carbon Dioxide 25 (22-29) mmol/L Anion Gap 12 (12-20) BUN 13 (9-16) mg/dL Creatinine 0.59 (0.5-1.4) mg/dL Estim Creat Clear Calc 57.1 Estimated GFR > 60 POC Glucose 94 (60-115) mg/dL Random Glucose 91 (60-115) mg/dL Calcium 9.2 D (8.4-10.2) mg/dL Troponin I High Sens < 2.7 (<3.5-17.0) ng/L Triglycerides 97 (<150) mg/dL Cholesterol 194 (<200) mg/dL LDL Cholesterol, Calc 121 H (<100) mg/dL HDL Cholesterol 54 (>40) mg/dL Ethyl Alcohol < 10 mg/dL Independent Interpretation I performed an independent interpretation of an: EKG, Plain X-Ray and CT Scan Radiology Impression Discussion of test interpretation with radiology: I have reviewed the radiologist's reading. Independent Historian Clinical information obtained from an independent historian. History obtained from or confirmed by: EMS External Record Review External record reviewed: Inpatient record, Office record, Outpatient record, Prior outpatient labs, Prior outpatient radiology, Primary care record and Outside ED record Tests considered The following testing was considered but not selected: As above Chronic Conditions Patient?s care impacted by: Cancer Social Determinants Patient?s care significantly limited by Social Determinants of Health including: Inadequate housing, Low income, Problems related to primary support group, Unemployment, Problems related to employment and Other Social Determinant of Health Critical Care Time Critical Care Time Critical Care Time: Yes Total Critical Care Time: 45 Attestation: I have personally provided critical care time exclusive of time spent on separately billable procedures. Time includes review of lab data, radiology results, discussion with consultants, and monitoring for potential decompensation. Intervention performed as documented. Discharge Plan Discharge Clinical Impression: TIA (transient ischemic attack) Patient Disposition: Admitted As Inpatient Print Language: Kyrgyz
--- OUTSIDE RECORDS SUMMARY | 2024-05-25 15:15 | XMS_ITS | Continuity of Care Document ---
Author Organization [facility] Address [address] [place] [id number] Care Team Providers Care Food Service Specialist Name Role Phone Mark MENDOZA, Jennifer Darnell Primary Care Physician Encounter [facility] [id number] Date(s): 03/05/24 - 03/15/[address] [id number] Discharge Disposition: A-Transfer VNA/Home Health Attending Physician: Dina Ho MD Admitting Physician: Tabitha MENDOZA, Zurdo Beatty Referring Physician: Not on Staff, Referring MD Allergies, Adverse Reactions, Alerts Substance Reaction Severity Status doxycycline vomiting Active hydrochlorothiazide unknown Active Darvon difficulty breathing Active Medications albuterol 0.083% inhalation solution 3 mL = 2.5 mg, Inhalation, Every 6 hours, PRN for wheezing, # 25 each, 0 Refills, Maintenance, 02/03/22 10:50:00 EDT, Solution, Partial fill upon patient request if the prescription is for a scheduleII opioid drug. Start Date: 02/03/22 Status: Ordered Cane See Instructions, # 1 each, Maintenance, 1 each, 04/07/10 20:16:32 Start Date: 04/07/10 Status: Ordered dexamethasone 4 mg oral tablet See Instructions, 1 tab (4mg) By Mouth once a day for 3 days as directed after chemo, with food, # 18 tablet, 0 Refills, Maintenance, 01/29/24 14:25:00 EDT, [facility]/pharmacy #[id number], Partial fill upon patient request, 155, cm, 01/16/24 6:10:00 EDT, Height... Start Date: 01/29/24 Status: Ordered lactulose 10 gm/15 ml oral syrup 15 mL = 10 Gm, By Mouth, Daily, PRN as needed for constipation, # 1,350 mL, 0 Refills, Maintenance,03/07/24 12:06:00 EDT, Syrup, [facility]/pharmacy #[id number], Partial fill upon patient request if the prescription is for a schedule II opioid drug., 15 mL By Adry... Start Date: 03/07/24 Status: Ordered lidocaine-prilocaine 2.5%-2.5% topical cream See Instructions, apply small dollop to [facility] 1 hr prior to appt and cover with plastic, #30 Gm, 1 Refills, Maintenance, 01/29/24 14:24:00 EDT, Cream, [facility]/pharmacy #[id number], Partial fill upon patient request if the prescription is for a schedul... Start Date: 01/29/24 Status: Ordered Nicoderm C-Q Clear 21 mg/24 hr transdermal film, extended release 1 patch, Topically, Daily, # 30 patch, 0 Refills, Maintenance, 02/25/24 9:47:00 EDT, Patch, [facility], Partial fill upon patient request if the prescription is for a schedule II opioiddrug., 150, cm, 02/25/24 8:49:00 EDT, Height, 32.5,... Start Date: 02/25/24 Status: Ordered olanzapine 2.5 mg oral tablet 1, tablet, By Mouth, Daily at bedtime, DIRECTED., # 18 tablet, Refills 0, Maintenance, 02/19/24 8:02:00 EDT, Route to Pharmacy Electronically, [id number], 150.8, cm, 02/13/24 15:23:00 EDT, Height, 33.6, kg, 02/13/24 15:23:00 EDT, Dry Weight Start Date: 02/19/24 Status: Ordered ondansetron 8 mg oral tablet 1 tablet = 8 mg, By Mouth, Every 8 hours, PRN as needed for nausea/vomiting, # 30 tablet, 1 Refills, Maintenance, 01/29/24 14:24:00 EDT, Tablet, [facility]/pharmacy #[id number], Partial fill upon patient request if the prescription is for a schedule II opioid drug... Start Date: 01/29/24 Status: Ordered oxyCODONE 5 mg/5 mL oral solution 5 mL = 5 mg, By Mouth, Every 8 hours, # 105 mL, 0 Refills, Maintenance, 02/20/24 21:30:00 EDT, Solution, [facility], Partial fill upon patient request if the prescription is for a schedule II opioid drug., 150.8, cm, 02/20/24 15:38:00... Start Date: 02/20/24 Status: Ordered ProAir HFA 90 mcg/inh inhalation aerosol with adapter 2, puffs, Inhalation, 4 times a day, Scheduled / PRN, 1, each, 11, 11, 10/09/08 10:34:02, as neededfor wheezing, Print VENKAT Number, [id number] Start Date: 10/09/08 Status: Ordered prochlorperazine 10 mg oral tablet 1 tablet = 10 mg, By Mouth, Every 6 hours, PRN nausea/vomiting, may cause drowsiness, # 30 tablet, 1 Refills, Maintenance, 01/29/24 14:24:00 EDT, [facility]/pharmacy #[id number], Partial fill upon patient requestif the prescription is for a schedule II opioid sheldon... Start Date: 01/29/24 Status: Ordered senna 8.8 mg/5 mL oral syrup 10 mL = 17.6 mg, By Mouth, Daily at bedtime, PRN for constipation, # 240 mL, 0 Refills, Maintenance, 02/13/24 15:55:00 EDT, Syrup, [id number], Partial fill upon patient request if the prescription is for a schedule II opioid drug., 150.8, cm,... Start Date: 02/13/24 Status: Ordered Symbicort 80mcg/4.5mcg Inhaler 2, puffs, Inhalation, 2 times a day, Refills 0, Maintenance, 10/10/16 13:06:31 Start Date: 10/10/16 Status: Ordered Tylenol 8 HR Arthritis Pain 650 mg oral tablet, extended release 2 tablet = 1,300 mg, By Mouth, Every 8 hours, PRN as needed for pain, # 100 tablet, 0 Refills, Maintenance, 02/03/22 10:57:00 EDT, ER Tablet, Partial fill upon patient request if the prescription is for a schedule II opioid drug. Start Date: 02/03/22 Status: Ordered voriconazole 200 mg oral tablet = 200 mg, By Mouth, Every 12 hours, for 30 days, # 60 tablet, 3 Refills, Acute 06/24/24 9:41:00 EST, 02/25/24 9:41:00 EDT, Tablet, [facility], Partial fill upon patient request if the prescription is for a schedule II opioid drug., 150,... Start Date: 02/25/24 Stop Date: 06/24/24 Status: Ordered Walker See Instructions, # 1 each, Maintenance, 1 walker pt 5ft1in 74# rx for difficulty ambulating due tohistory of CVA, deconditioning, 03/03/24 15:49:00 EDT, Supply Start Date: 03/03/24 Status: Ordered warfarin 3 mg oral tablet 1 tablet = 3 mg, By Mouth, Daily at supper, # 30 tablet, 0 Refills, Maintenance, 03/15/24 11:40:00 EDT, Tablet, [facility]/pharmacy #[id number], Partial fill upon patient request if the prescription is for a schedule II opioid drug., 155, cm, 03/14/24 8:46:00 EDT,... Start Date: 03/15/24 Status: Ordered Problem List Condition Confirmation Course Effective Dates Status Health St atus Informant Acid reflux Confirmed Active Alcohol abuse, 1-7 beers daily, documented 6-12 beers daily in chart Confirmed Active Claudication Confirmed Active COPD - Chronic obstructive pulmonary disease/Asthma Confirmed Active Fibromyalgia Confirmed Active Gastrostomy tube in situ Confirmed Active Chronic Helicobacter pylori gastritis Confirmed 2006 Active Hypertension Confirmed Active Laryngeal carcinoma Confirmed Active Osteoporosis Confirmed Active PVD - Peripheral vascular disease Confirmed Active Stroke Confirmed Active Tachycardia Confirmed Active Jaw clicking Confirmed Active Tobacco smoking behavior - finding, 1/2 ppd up to 2 ppdX51 years Confirmed Active Tubular adenoma of colon, s/p polypectomy Confirmed Active Underweight Confirmed Active Weakness of right arm Confirmed Active Procedures Procedure Date Related Diagnosis Body Site Status Accessing port a cath Com pleted Gastrostomy tube insertion education Completed Vital Signs Most recent to oldest [Reference Range]: 1 2 3 Height 155 cm (03/15/24 2:16 PM) 155 cm (03/15/24 12:29 PM) 155 cm (03/14/24 8:46 AM) Weight 32.4 kg (03/12/24 1:46 PM) 35 kg (03/05/24 6:46 PM) Oxygen Saturation [94-100 %] 100 % (03/15/24 2:16 PM) 100 % (03/15/24 12:29 PM) 100 % (03/15/24 7:00 AM) Pulse Rate [55-90 bpm] 70 bpm (03/15/24 2:16 PM) 69 bpm (03/15/24 12:29 PM) 60 bpm (03/15/24 7:00 AM) Body Mass Index [18.5-24.99 kg/m2] 14.57 kg/m2 *L* (03/05/24 6:46 PM) Blood Pressure [90-138/55-84 mm Hg] 140/69mm Hg *H* (03/15/24 2:16 PM) 126/87mm Hg (03/15/24 12:29 PM) 134/70mm Hg (03/15/24 7:00 AM) Respiratory Rate [16-30 br/min] 18 br/min (03/15/24:16 PM) 18 br/min (03/15/24 12:29 PM) 18 br/min (03/15/24 7:00 AM) Temperature [96.8-100.4 DegF] 98.3 DegF (03/15/24 2:16 PM) 97.4 DegF (03/15/24 12:29 PM) 97.9 DegF (03/15/24 7:00 AM) Mode of Delivery (Oxygen) Room air (03/15/24 2:16 PM) Room air (03/15/24 12:29 PM) Room air (03/15/24 7:00 AM) Blood pressure sites Arm, left (03/15/24 2:16 PM) Arm, left (03/15/24 12:29 PM) Arm, left (03/15/24 7:00 AM) Temperature Route Oral (03/15/24 2:16 PM) Oral (03/15/24 12:29 PM) Oral (03/15/24 7:00 AM) Dry Weight 35 kg (03/05/24 6:46 PM) Weight Obtained Via Standing scale (03/12/24 1:46 PM) Social History Social History Type Response Smoking Status 10 or more cigarette s (1/2 pack or more)/day in last 30 days; Interested in cessation: No; Patient wants NRT during admission No entered on: 03/05/24 Sex History and physical note * Altagracia MENDOZA, Vero Rubin: PERFORM, MODIFY Event Display: History and Physical Hospital Authored Date: Patient: ??KIM VEGA ? Age:??64 Years?Sex:??Female?:??1960?? Chief Complaint/Reason for Consultation Direct admission from oncology clinic for inability to thrive at home History of Present Illness Ms. 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 The patient was hospitalized on 02/20-02/24??after presenting with aphasia and right-s ided weakness wherein she was found to have??strokes and multiple??vascular distribution???right parietal and left frontoparietal??with a high NIHSS score of 18??and neurology concern for embolic process??and recommending??anticoagulation with enoxaparin rather than DAPT. ??During that admission she was offered rehabilitation but elected to return home??with services. ??Once home she found??it difficult to perform the necessary tasks to??function independently??given the weakness in her dominant arm. ??She was unable to administer the enoxaparin that neurology had recommended.?? She has been eating and drinking well but was unable to flush her G-tube for routine care.?? She was also having difficulty cooking??and cleaning her home.?? In addition to these functional concerns???she was unable to receive home services??from VNA PT or OT??because of a severe flea infestation in her home. ??Her niece??Justyna has been trying to help address that with??extermination treatments??but it has still been an active issue.?The patient has been to the emergency department on 03/02 and 03/03??with the same concerns. ??She went for radiation today and had some bowel incontinence during the??treatment. ??Then she went to her oncologist and after expressing all of these concerns about??her inability to thrive at home they arranged for direct admission to the hospital??to address??her ongoing rehabilitation needs. Review of Systems Constitutional no fevers or chills. ??She has had ongoing weight loss??but feels her energy level is okay. Eyes no??vision change HEENT no headache. ??She has a left neck mass. Cardiovascular no chest pain or dizziness Respiratory no dyspnea or cough GI no nausea vomiting dysphagia, odynophagia or abdominal pain. ??Her bowels have been incontinent at times??and were described as loose.?? She has been eating normally. ??She does not use her G-tube??for medications or nutrition currently. no dysuria Musculoskeletal??gait instability. ??She is??ambulating independently but will use a wheelchair forlong distances. ??She??does not use the walker because it does not fit well within her home space. Neurologic???right arm weakness and??word finding difficulty/speech delay. ??No confusion or memoryloss. Hematologic no bleeding Objective Vital Signs?? Temperature: 97.7 DegF (03/05/24 22:38:00) Temperature Route: Oral (03/05/24 22:38:00) Pulse Rate: 58 bpm (03/05/24 22:38:00) Respiratory Rate: 20 br/min (03/05/24 22:38:00) Systolic Blood Pressure:??152 mm Hg??High (03/05/24 22:38:00) Diastolic Blood Pressure:??54 mm Hg??Low (03/05/24 22:38:00) Blood pressure sites: Arm, right (03/05/24 22:38:00) Mean Arterial Pressure: 87 mm Hg (03/05/24 22:38:00) Pulse Pressure: 98 mm Hg (03/05/24 22:38:00) Oxygen Saturation: 98 % (03/05/24 22:38:00) Mode of Delivery (Oxygen): Room air (03/05/24 22:38:00) Early Warning Score: 2 (03/05/24 22:39:12) ? Physical Exam General???marked??cachectic??and chronically ill-appearing??in no acute distress Eyes sclerae anicteric noninjected HEENT??moist mucosa??Left neck mass. Cardiovascular regular??rate and rhythm S1-S2 without appreciable murmurs rubs or gallops Pulmonary???lungs are clear to auscultation bilaterally GI???gastrostomy tube in the left upper quadrant,??abdomen is scaphoid bowel sounds are present soft without tenderness to palpation no bladder distention or tenderness Musculoskeletal??decreased muscle mass??without clubbing or cyanosis Neurologic???awake alert oriented??and able to answer questions???mild dysarthria and??occasional speech delay for word finding difficulty.?? Right arm is??becoming contracted with weakness. ??Left arm and bilateral legs??move well. Assessment/Plan Assessment:??Ms. 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 ?? FTT (failure to thrive) in adult (R62.7):??-Multiple issues leading to inability to thrive well at home stemming from the recent stroke with right??arm weakness??which has resulted in??the??inabilityto??administer??enoxaparin injection, inability to flush G-tube,??inability to??Cook/clean??at home??and in addition??there is a??flea infestation in her home that was prohibitive to her ability to receive PT and VNA services at home? ? >??all prompted??the??direct admission??to??determine rehabilitation??needs??in this complex situation. ?? Stroke (I63.9):??-??Multifocal vascular distribution concern for embolic source???02/20 admission ?Antithrombotic Therapy by End of Hospital Day 2:??Antithrombotic ordered Weakness of right arm (R53.1):??-??Right hand dominant??leading to difficulty??performing daily activities at home as well as inability to administer the therapeutic enoxaparin.??Will benefit from rehabilitation for PT and OT??to help her??improve her strength in the right arm??and improve functionality in the??nondominant left??arm/hand ??? PT evaluation ?Case management ??? Continue therapeutic enoxaparin??50 mg daily??(1.5??g/kg/day dosing)??with consideration to switch to an oral medication ??? Neurology did still want her to have repeat MRI imaging??in 4 to 8 weeks??to??be certain there is no underlying mass lesion??contributing to her acute neurological??findings. ?? Laryngeal carcinoma (C32.9):??Currently on treatment??with??oncology and??radiation oncology. ?? Flea infestation (B88.2):??.This was contributory to her presentation and that she could not receive home services reliably.??Her niece is reportedly dealing with the??extermination ?? Pulmonary aspergillosis: Diagnosed on right upper lobe??lung biopsy on 01/04??and seen by ID during the last hospitalization?will remain on voriconazole??200 mg p.o. twice daily??while receiving chemotherapy/immunosuppression. ?? COPD - Chronic obstructive pulmonary disease/Asthma (J44.9):??No acute issues.??Continue inhaler use ?? Tobacco use (Z72.0):??Continues to smoke and declines??nicotine replacement.??Ordered patch as needed and smoking cessation counseling ?? Underweight (R63.6):??- Malnutrition (E46):??She is markedly cachectic??with a BMI of 14.5.??She reports taking good oral intake.??She did not like??boost supplement.??She does not use her G-tube for nutrition.??Will request nutrition consultation??to see if she would benefit from??dietary upgrade, other??nutritional supplements or??supplemental tube feeds. ?? VTE Prophylaxis:??On therapeutic enoxaparin ?VTE Prophylaxis Assessment:??VTE Prophylaxis Ordered ?? Discharge Planning:??Anticipate discharge??when appropriate??placement is determined ?? Ongoing Medical Necessity:??Treatment ?? Code Status:??Reviewed with patient at bedside???DNR/DNI.??She wishes to complete a MOLST form. ?Order Code Status:??Code Status Ordered ? Histories Allergies Allergies ?(Active and Proposed Allergies Only) Darvon? (Severity: Unknown severity, Onset: Unknown) ?Reactions: difficulty breathing hydrochlorothiazide? (Severity: Unknown severity, Onset: Unknown) ?Reactions: unknown doxycycline? (Severity: Unknown severity, Onset: Unknown) ?Reactions: vomiting ? Past Medical History/Problem List Active Problems(20) Acid reflux Alcohol abuse, 1-7 beers daily, documented 6-12 beers daily in chart Ankle pain, left Chest pain Chronic Helicobacter pylori gastritis Claudication COPD - Chronic obstructive pulmonary disease/Asthma Fibromyalgia Gastrostomy tube in situ Hypertension Jaw clicking Laryngeal carcinoma Osteoporosis PVD - Peripheral vascular disease Stroke Tachycardia Tobacco smoking behavior - finding, 1/2 ppd up to 2 ppdX51 years Tubular adenoma of colon, s/p polypectomy Underweight Weakness of right arm Pulmonary aspergillosis ? Past Surgical History Right ax-fem Bypass: 06/03/20 Reduction and internal fixation, left calcaneus avulsion fracture: 10/28/16 Open reduction, internal fixation of bimalleolar fracture, left ankle, using a VariAx plate on the distal fibula from the [employer] and 2 cannulated titanium screws to fix the left medial malleolus: 12/07/11 Colonoscopy w/polypectomy: 2006 PFT - Pulmonary function tests: 11/26/03 Gastrostomy tube insertion 02/04 port a cath 02/04 Appendectomy Tonsillectomy and adenoidectomy ?? Social History Alcohol Details:??Use: Current. ??Frequency: Daily. ??Type: Beer. ??Other: 1-7 beers daily.-->no longer drinking etoh Tobacco Details:??Use: 10 or more cigarettes (1/2 pack or more)/day in last 30 days. ??Interested in cessation: No. ??No Details:??Current every day smoker She denies drug use. She lives at home by herself.?? She had 2 cats and unfortunately both of her cats this month??1 on 02/16 and the other on 02/26 just following her last discharge from stroke.?? She has been unable to receive VNA/PT/OT services at home because of a flea infestation in her house.?? Her nieceCandace is working to address this. ?? Family History No Family History documented. Medications Home Medications Acetaminophen (Tylenol 8 HR Arthritis Pain 650 mg oral tablet, extended release)?2?tab(s)?1,300?Milligram?By Mouth?Every 8 hours?as needed?as needed for pain Albuterol (ProAir HFA 90 mcg/inh inhalation aerosol with adapter)?2?puff(s)?Inhalation?4 times a day?as needed?as needed for wheezing Albuterol (albuterol 0.083% inhalation solution)?3?Milliliter?2.5?Milligram?Inhalation?Every 6 hours?as needed?for wheezing Budesonide-Formoterol (Symbicort 80mcg/4.5mcg Inhaler)?2?puff(s)?Inhalation?2 times a day Dexamethasone (dexamethasone 4 mg oral tablet)?See Instructions?1 tab (4mg) By Mouth once a day for 3 days as directed after chemo, with food Durable Medical Equipment (Cane)?See Instructions?1 each Durable Medical Equipment (Walker)?See Instructions?1 walker pt 5ft1in 74# rx for difficulty ambulating due to history of CVA, deconditioning Enoxaparin (Lovenox 60 mg/0.6 mL injectable solution)?0.5?Milliliter?50?Milligram?Subcutaneous Injection?Daily?for 30?Days- unable to admin at home Lactulose (lactulose 10 gm/15 ml oral syrup)?15?Milliliter?10?gram?By Mouth?Daily?as needed?as needed for constipation Lidocaine/Prilocaine Topical (lidocaine-prilocaine 2.5%-2.5% topical cream)?See Instructions?apply small dollop to portacath site 1 hr prior to appt and cover with plastic Nicotine (Nicoderm C-Q Clear 21 mg/24 hr transdermal film, extended release)?1?patch(es)?Topically?Daily- not using Olanzapine (olanzapine 2.5 mg oral tablet)?1?tablet?By Mouth?Daily at bedtime? DIRECTED. after chemo only Ondansetron (ondansetron 8 mg oral tablet)?1?tab(s)?8?Milligram?By Mouth?Every 8 hours?as needed?as needed for nausea/vomiting Oxycodone (oxyCODONE 5 mg/5 mL oral solution)?5?Milliliter?5?Milligram?By Mouth?Every 8 hours prn PROCHLORperazine (prochlorperazine 10 mg oral tablet)?1?tab(s)?10?Milligram?By Mouth?Every 6 hours?as needed?nausea/vomiting?may cause drowsiness Senna (senna 8.8 mg/5 mL oral syrup)?10?Milliliter?17.6?Milligram?By Mouth?Daily at bedtime?as needed?for constipation Voriconazole (voriconazole 200 mg oral tablet)?200?Milligram?By Mouth?Every 12 hours?for 30?Days Results ?? Test Name Test Result Date/Time WBC 5.3 k/mm3 03/04/2024 11:14 EDT Hgb 10.7 Gm/dL 03/04/2024 11:14 EDT Hct 32.7 % 03/04/2024 11:14 EDT Platelet Count 143 k/mm3 03/04/2024 11:14 EDT Sodium 135 mmol/L 03/04/2024 11:14 EDT Potassium 3.8 mmol/L 03/04/2024 11:14 EDT Chloride 100 mmol/L 03/04/2024 11:14 EDT Bicarbonate Level 23 mmol/L 03/04/2024 11:14 EDT Anion Gap 12 03/04/2024 11:14 EDT BUN 9 mg/dL 03/04/2024 11:14 EDT Creatinine-Blood 0.35 mg/dL 03/04/2024 11:14 EDT Creatinine (POC) POC Cartridge 0.3 mg/dL 03/04/2024 11:19 EDT Magnesium 1.9 mg/dL 03/04/2024 11:14 EDT ?? Hospital Progress note * Jose Alfredo JIMENEZ, Gisela Hawkins: PERFORM, SIGN, VERIFY Event Display: Progress Note Hospital Authored Date: Patient: KIM VEGA Age: 64 years Sex: Female : 1960 Associated Diagnoses: None Author: Gisela Veliz RN Findings received a message at 1610 that [facility] could not take patient, had no see PCP in the last 90 days. VNA was informed pt was staying at friends house. called the VNA back and left a message that pt was no longer at the hospital. spoke with Priya TAO, was told that pt has to see MD within a year, since pt was discharged and was accepted, left message that since pt was already discharged, needed to find new placement. did not receive a call back. Discharge Information Case Management Discharge Plan : Case Management Discharge Plan Data 03/15/2024 13:59 EDT Discharge Level of Care at Discharge Homehealth/VNA Discharge VNA/Hospice/Home Care [facility] [phone] 03/14/2024 15:04 EDT Discharge Level of Care at Discharge Homehealth/VNA Discharge VNA/Hospice/Home Care [facility] [phone] Name of Agency #1 [facility] Categories #1 Physical Therapy, Longterm Service Comments #[address] [facility] will contact you to set up a time to meet. [facility] [phone] * Zaida Gaspar RN: PERFORM, SIGN, VERIFY Event Display: Progress Note Hospital Authored Date: Patient: KIM VEGA Age: 64 years Sex: Female : 1960 Associated Diagnoses: None Author: Zaida Gaspar RN Findings Nursing Data Vital Signs : VITAL SIGNS SECTION 03/15/2024 7:00 EDT Temperature 97.9 DegF Temperature Route Oral Pulse Rate 60 bpm Respiratory Rate 18 br/min Systolic Blood Pressure 134 mm Hg Diastolic Blood Pressure 70 mm Hg Blood pressure sites Arm, left Pulse Pressure 64 mm Hg Oxygen Saturation 100 % Mode of Delivery (Oxygen) Room air . Narrative/Incidental Patient is alert and oriented x4 and very eager to go home. Patient morning meds were administered prior to patient transfer to . She is on room air and independently ambulating in her room with noissues. Patient G-tube CDI and flushed with 10cc water with dressing reinforced. Bowel meds were given by the evening nurse as patient last BM was 03/09/24. Patient rounds and safety maintained until her transport arrive. The patient left the unit in a wheelchair. . Discharge Information Case Management Discharge Plan : Case Management Discharge Plan Data 03/15/2024 13:59 EDT Discharge Level of Care at Discharge Homehealth/VNA Discharge VNA/Hospice/Home Care [facility] [phone] 03/14/2024 15:04 EDT Discharge Level of Care at Discharge Homehealth/VNA Discharge VNA/Hospice/Home Care [facility] [phone] Name of Agency #1 [facility] Service Categories #1 Physical Therapy, Longterm Service Comments #1 [facility] will contact you to set up a time to meet. [facility] [phone] * Dottie Mcginnis RN: PERFORM, SIGN, VERIFY Event Display: Progress Note Hospital Authored Date: Patient: KIM VEGA Age: 64 years Sex: Female : 1960 Associated Diagnoses: None Author: Dottie Mcginnis RN Findings Problem Related to Alteration in Nutrition : Alteration in Nutrition/new 03/15/2024 3:53 EDT Alteration in Nutrition Related to Malnutrition Goals & Outcomes, Nutrition Pt will achieve/maintain adequate nutrition status, Pt will maintain adequate GI/ function appropriate for pt, Pt will reach normal/improved electrolyte/vitamin balance, Pt will resume/maintain adequate hemodynamic status, Pt will tolerate age appropriate diet prior to discharge, Pt will intake a balanced & increased caloric diet Interventions, Nutrition Consider small snacks or frequent meals if pt has difficulty, Encourage adequate & balanced intake BH Goals/Interventions, Nutrition Yes Nutrition, Problem Start 03/05/2024 20:00 Reviewed plan with, Nutrition Patient Patient Progression, Nutrition Pt progressing according to plan . Self Care Deficit : Self Care Deficit/new 03/15/2024 3:53 EDT Self Care Deficit Related to Impaired mobility Goals & Outcomes, Self Care Deficit Pt will safely perform self care to maximum ability Interventions, Self Care Deficit Encourage pt to use stronger side as best as possible Goals/Interventions,Self Care Deficit Yes Self Care Deficit, Problem Start 03/11/2024 13:16 Reviewed plan with, Self Care Deficit Patient Patient Progression, Self Care Deficit Pt progressing according to plan . Narrative/Incidental Assumed care 193: Pt is A&O x4, denies pain. Medicated per OCT. PRN stool softener given, no BM yet. PEG tube flushed. Safety maintained. . Discharge Information Case Management Discharge Plan : Case Management Discharge Plan Data 03/14/2024 15:04 EDT Discharge Level of Care at Discharge Homehealth/VNA Discharge VNA/Hospice/Home Care [facility] [phone] Name of Agency #1 [facility] Service Categories #1 Physical Therapy, Longterm Service Comments #1 [facility] will contact you to set up a time to meet. [facility] [phone] Note * Gisela Veliz RN: PERFORM Event Display: Discharge/Transfer Note Hospital Authored Date: [id number] Nursing Discharge Note Entered On: 03/15/2024 13:59 EDT Performed On: 03/15/2024 13:59 EDT by Gisela Veliz RN Nursing Discharge Note 2 Discharge Time : 03/15/2024 15:15 EDT Discharge Comments : no changes from reporting supervisor finish end Gisela Veliz RN - 03/15/2024 15:15 EDT Discharge Level of Care at Discharge : Homehealth/VNA Discharge VNA/Hospice/Home Care(v001) : [facility] [phone] Patient Left Unit Via : Wheelchair Patient Accompanied Off Unit with : Responsible adult DC Instructions Provided & Signed by Pt : Yes Patient Understands D/C Instructions : Yes Verbalized Understanding of D/C Plan By : Patient Patient Instructions Discharge Signed : Yes Did Pt have Specialty Bed or Wound Vac : No Gisela Veliz RN - 03/15/2024 13:59 EDT * Sveta Barrios: PERFORM, MODIFY Event Display: Discharge/Transfer Note Hospital Authored Date: [id number] Patient: ??KIM VEGA ? Age:??64 Years?Sex:??Female?:??1960?? Patient Information Discharge Location: [facility] Primary Care Physician: Mark MENDOZA , Jennifer Darnell Admit Date/Time: 03/05/24 21:08 Discharge Disposition Discharge Disposition: Home with Home Health Discharge Diagnosis FTT (failure to thrive) in adult (R62.7) Stroke (I63.9) Weakness of right arm (R53.1) Laryngeal carcinoma (C32.9) Flea infestation (B88.2) COPD - Chronic obstructive pulmonary disease/Asthma (J44.9) Tobacco use (Z72.0) Underweight (R63.6) Malnutrition (E46) Gastrostomy tube in situ (Z93.1) Severe protein-energy malnutrition (E43) Tobacco smoking behavior - finding, 1/2 ppd up to 2 ppdX51 years ([id number]) _ Discharge Medications Acetaminophen (Tylenol 8 HR Arthritis Pain 650 mg oral tablet, extended release)?2?tab(s)?1,300?Milligram?By Mouth?Every 8 hours?as needed?as needed for pain Albuterol (ProAir HFA 90 mcg/inh inhalation aerosol with adapter)?2?puff(s)?Inhalation?4 times a day?as needed?as needed for wheezing Albuterol (albuterol 0.083% inhalation solution)?3?Milliliter?2.5?Milligram?Inhalation?Every 6 hours?as needed?for wheezing Budesonide-Formoterol (Symbicort 80mcg/4.5mcg Inhaler)?2?puff(s)?Inhalation?2 times a day Dexamethasone (dexamethasone 4 mg oral tablet)?See Instructions?1 tab (4mg) By Mouth once a day for 3 days as directed after chemo, with food Durable Medical Equipment (Cane)?See Instructions?1 each Durable Medical Equipment (Walker)?See Instructions?1 walker pt 5ft1in 74# rx for difficulty ambulating due to history of CVA, deconditioning Lactulose (lactulose 10 gm/15 ml oral syrup)?15?Milliliter?10?gram?By Mouth?Daily?as needed?as needed for constipation Lidocaine/Prilocaine Topical (lidocaine-prilocaine 2.5%-2.5% topical cream)?See Instructions?apply small dollop to portacath site 1 hr prior to appt and cover with plastic Nicotine (Nicoderm C-Q Clear 21 mg/24 hr transdermal film, extended release)?1?patch(es)?Topically?Daily Olanzapine (olanzapine 2.5 mg oral tablet)?1?tablet?By Mouth?Daily at bedtime? DIRECTED. Ondansetron (ondansetron 8 mg oral tablet)?1?tab(s)?8?Milligram?By Mouth?Every 8 hours?as needed?as needed for nausea/vomiting Oxycodone (oxyCODONE 5 mg/5 mL oral solution)?5?Milliliter?5?Milligram?By Mouth?Every 8 hours PROCHLORperazine (prochlorperazine 10 mg oral tablet)?1?tab(s)?10?Milligram?By Mouth?Every 6 hours?as needed?nausea/vomiting?may cause drowsiness Senna (senna 8.8 mg/5 mL oral syrup)?10?Milliliter?17.6?Milligram?By Mouth?Daily at bedtime?as needed?for constipation Voriconazole (voriconazole 200 mg oral tablet)?200?Milligram?By Mouth?Every 12 hours?for 30?Days Warfarin (warfarin 3 mg oral tablet)?1?tab(s)?3?Milligram?By Mouth?Daily at supper ?? Quality Measures Stroke Quality Measures:?Discharged on Antithrombotic Therapy:??Antithrombotic prescription ?? 72 Hour Antibiotic History Active Antibiotics Calendar Day Last Administered First Administered Voriconazole??200 mg, By Mouth, Every 12 hours ? 10 03/15/2024 08:53 03/06/2024 00:29 Medications Started Warfarin (warfarin 3 mg oral tablet)?1?tab(s)?3?Milligram?By Mouth?Daily at supper Medications Discontinued Lovenox Doses Changed None Allergies Allergies ?(Active and Proposed Allergies Only) Darvon? (Severity: Unknown severity, Onset: Unknown) ?Reactions: difficulty breathing hydrochlorothiazide? (Severity: Unknown severity, Onset: Unknown) ?Reactions: unknown doxycycline? (Severity: Unknown severity, Onset: Unknown) ?Reactions: vomiting ? Stroke Onset Details Service Categories #1: Physical Therapy, Longterm Able to close lips, pucker and blow out: Yes Able to swallow own secretions: Yes Absence of dysarthria/dysphonia/aphonia: Yes No delay in swallowing (tsp): Yes Patient alert: Yes Swallows water without choking (60cc): Yes Swallows water without choking (tsp): Yes Voice sounds clear, not gurgly (60cc): Yes Voice sounds clear, not gurgly (tsp): Yes Voluntary Cough: Yes Modified Valente Score: 2 ?? PCP Follow-Up/Heads-Up Kim has been transitioned from Lovenox to Coumadin. She will need close follow up/lab work to monitor her INR for appropriate dosing to maintain INR 2-3 Future Appointments Monday 4:20 PM EDT ?? With: Emma Borges MD Where: [facility] [address] [place] [address]- Status: Pending Monday 10:30 AM EDT ?? Where: [facility] [address] [place] [address]- Status: Pending Hospital Course Per admitting provider Ms. Vega??is a right handed??64-year-old??who has??locally advanced laryngeal carcinoma??diagnosed in 10/2023??that is??being treated with radiation and chemotherapy, malnutrition with underweight status,??pulmonary aspergillosis??on voriconazole,??ongoing smoking with COPD ,??PAD, other listed issues??and recent??right parietal and left??frontal parietal??strokes??on 02/21/2024??with residual??right-sided weakness and word finding difficulty??on anticoagulation with enoxaparin??for presumed??embolic etiology??who is returning??as a direct admission from her oncology clinic for inability to thrive at home.?? The patient was hospitalized on 02/20-02/24??after presentingwith aphasia and right-sided weakness wherein she was found to have??strokes and multiple??vasculardistribution???right parietal and left frontoparietal??with a high NIHSS score of 18??and neurologyconcern for embolic process??and recommending??anticoagulation with enoxaparin rather than DAPT. ??D uring that admission she was offered rehabilitation but elected to return home??with services. ??Once home she found??it difficult to perform the necessary tasks to??function independently??given theweakness in her dominant arm. ??She was unable to administer the enoxaparin that neurology had recom mended.?? She has been eating and drinking well but was unable to flush her G- tube for routine care.?? She was also having difficulty cooking??and cleaning her home.?? In addition to these functionalconcerns???she was unable to receive home services??from VNA PT or OT??because of a severe flea infestation in her home. ??Her niece??Justyna has been trying to help address that with??extermination treatments??but it has still been an active issue.?The patient has been to the emergency department on 03/02 and 03/03??with the same concerns. ??She went for radiation today and had some bowel incontinence during the??treatment. ??Then she went to her oncologist and after expressing all of these concerns about??her inability to thrive at home they arranged for direct admission to the hospital??to address??her ongoing rehabilitation needs. Objective Assessment and Plan Kim is a 64-year-old woman with a history of locally advanced laryngeal carcinoma diagnosed in October of this year on radiation and chemotherapy, malnutrition, pulmonary aspergillosis on voriconazole, COPD, tobacco abuse, peripheral artery disease and recent right??parietal and left frontal parietal strokes??in February of this year with residual??right-sided weakness and??word finding difficulty on anticoagulation with Lovenox.?? Stroke thought to be presumed secondary to embolic event.?? Patient was being followed??at oncology clinic??where she was noted to??be poorly kempt??and??in conversation??unable to??perform any of her??needed medication??administrations were cook or clean for herself.?? Secondary to this they??recommended patient to be brought into the hospital and was direct admitted for further evaluation. ?? FTT (failure to thrive) in adult (R62.7): Severe malnutrition related to chronic illness (cancer) Recent stroke with residual weakness??(I63.9):?? Weakness of right arm (R53.1):?? Patient unfortunately suffered??a stroke recently which resulted in the right arm weakness??and hasled to patient to have inability to administer??on Lovenox shots, flush G-tube as well as??cooking and cleaning of house or??cleaning of herself.?? She was seen outpatient at her oncology office where she was noted to have flea infestation??which is also been prohibitive to getting home services.??Unfortunately in the setting of all of this was ultimately determined the patient should present asa direct admission for further evaluation of her complex social situation??and failure to thrive. ??Unfortunately patient continues to do??well enough with physical therapy that she is not recommended for rehab??but does poorly with occupational therapy and is recommended for 06/03 services versus rehab facility.?? Given these current recommendations does not qualify for placement to rehab facility,??plan is to discharge to home with SN/PT services. Reviewing the neurology notes from her previous admission, the team recommended Lovenox or Coumadin given her hypercoagulable state.??Was sent??home with Lovenox injections however she was??unable to??give herself these shots given her recent stroke and ongoing right sided residual weakness. During this admission??Kim??was bridged to Coumadin (she was agreeable to taking pills), was started on 5 mg daily. On day of??discharge her INR was 1.7. Will continue Coumadin at 3 mg daily with a goal INR of 2-3. Kim will??need INR check within 38 to 72 hours of discharge for close monitoring of INR and dose adjustment if necessary. She does??havea G-tube which??she is not currently using as she is able to eat/drink and swallow pills without issue. G-tube does not need to be flushed daily however fdc on visits with Kim will monitor and flush to ensure patency. Appreciate CM/SW input.?Needs repeat??MRI in 4 to 8 weeks from??initial event to ensure no underlying lesion??(end of March) ?? Laryngeal carcinoma (C32.9):??Currently on treatment??with??oncology and??radiation oncology. Flea infestation (B88.2): Decontamination performed by??nurse and inspection was performed by both nurse and previous physician and no visible fleas. ??Hopefully will have??better ability to be able to get services reliably set up at home??once home has also been??dealt with by buncher hand which niece is currently working on for a call on Monday ?? Pulmonary aspergillosis: Diagnosed on right upper lobe??lung biopsy on 01/04??and seen by ID during the last hospitalization?will remain on voriconazole??200 mg p.o. twice daily??while receiving chemotherapy/immunosuppression. COPD - Chronic obstructive pulmonary disease/Asthma (J44.9): ??No acute issues.??Continue inhaler use Tobacco use (Z72.0):??Continues to smoke and declines??nicotine replacement.??Ordered patch as needed and smoking cessation counseling ?? Discharge Planning:??Home, with services ?? . Physical Exam Vital signs reviewed?? Constitutional:??Older female resting comfortably in bed, alert/awake,??cachectic appearing, cooperative, no apparent??CV or respiratory distress ENT:??PERRL, EOMI, moist mucous membranes Cardiovascular:??S1 S2, RRR, no murmur Pulm:??Clear to auscultation bilaterally with good air entry throughout, no wheezes, rhonchi, rales. No use of accessory muscles Abdominal:??Bowel sounds x4 quadrants, soft, NT, ND, no guarding Extremities:??No edema??or tenderness b/l lower extremities Neuro:??Alert and oriented x3, moves all extremities spontaneously and independently, cranial nerves II through XII grossly intact Skin: Warm/dry, intact Psych:??Pleasant mood, normal affect, not anxious appearing?? Consultants None Pending Results CBC ordered on 03/06/2024 CBC w/ Differential ordered on 03/13/2024 INR ordered on 03/14/2024 Patient Education Titles WebMD Ignite Patient Education - Warfarin?? Follow-Up Appointments Added Follow Up ?Time Frame ?Comments Mark MENDOZA , Jennifer Darnell Patient Instructions Please take your Coumadin as prescribed. You will have visiting nurses and PT seeing you in your home. You will need to have your blood drawn to have your INR checked within 48-72 hours of discharge. Post Discharge Care Diet: ??Regular Diet ?? Activity: ??As tolerated ?? Code Status: ??No Resuscitation ?? Prognosis: ??Fair ?? Discharge ?03/15/24 12:52:00 EDT Home Health Face to Face *Denotes mandatory fu ?? *I certify that this patient is under my care and that I or an allowed non- physician working with me had a face to face encounter with the patient on this date:??03/15/2024 13:07 ?? *The encounter with the patient was in whole, or in part, for the following medical condition, which is the primary diagnosis(es) for home health care:??FTT (failure to thrive) in adult (R62.7) Stroke (I63.9) Weakness of right arm (R53.1) Laryngeal carcinoma (C32.9) Flea infestation (B88.2) COPD - Chronic obstructive pulmonary disease/Asthma (J44.9) Tobacco use (Z72.0) Underweight (R63.6) Malnutrition (E46) Gastrostomy tube in situ (Z93.1) Severe protein-energy malnutrition (E43) Tobacco smoking behavior - finding, 1/2 ppd up to 2 ppdX51 years ([id number]) ?? *Select the indications for the discipline/s that are being arranged for this patient. Nursing (select all that apply): [_] None [x] Medication management (reconciliation, teaching)?? [_] Chronic disease management?? [_] Wound care and treatment?? [_] Home safety evaluation [_] Administer SQ/IM/IV medications?? [_] Cath care?? [_] Drain care?? [x] Trach or GT care?? Other _Please check INR q48h until therapuetic ? Occupation Therapy (select all that apply): [x] None [_] ADL Management [_] Fall prevention training [_] Energy conservation [_] Cognitive training Other _ Physical Therapy (select all that apply): [_] None [x] Functional mobility training [_] Home exercise program to strengthen [_] Increase ROM?? [x] Falls prevention training [_] Home maintenance program for chronic disease Other _ Speech Therapy (select all that apply): [x] None [_] Swallow evaluation and training [_] Speech and language training [_] Cognitive training to process, organize, and/or recall information Other _ ? *Homebound due to (select all that apply): [x] Inability to leave home without assistance/supervision [_] Inability to ambulate without assistance [_] Pain [x] Decreased strength and endurance [_] Unsteady gait [_] Severe SOB and fatigue [_] Impaired transfers [_] Inability to negotiate stairs [_] Limited weight bearing [_] Mental status change? *Physician Signature: _Sveta Begum PA-C ?? *By signing this, I certify that I have personally evaluated the patient and agree with the findings and recommendations as documented above. ? Results Discharge Labs BLOOD COUNT & DIFF WBC 2.5 k/mm3 (Low)?? 03/13/2024 06:41 RBC 4.04 m/mm3 (Low)?? 03/13/2024 06:41 Hgb 10.5 Gm/dL (Low)?? 03/13/2024 06:41 Hct 34.1 % (Low)?? 03/13/2024 06:41 MCV 84.4 femtoliters ()?? 03/13/2024 06:41 MCH 26.0 pg (Low)?? 03/13/2024 06:41 MCHC 30.8 g/dL (Low)?? 03/13/2024 06:41 Platelet Count 125 k/mm3 (Low)?? 03/13/2024 06:41 RDW-SD 70.5 femtoliters (High)?? 03/13/2024 06:41 MPV 9.2 femtoliters (Low)?? 03/13/2024 06:41 Nucleated RBC (Automated) 0.0 #/100 WBC'S ()?? 03/13/2024 06:41 Abs. NRBC 0.0 k/mm3 ()?? 03/13/2024 06:41 Abs. Neut 1.6 k/mm3 ()?? 03/13/2024 06:41 Abs. Lymph 0.4 k/mm3 (Low)?? 03/13/2024 06:41 Abs. [place] 0.4 k/mm3 ()?? 03/13/2024 06:41 Abs. Eo 0.0 k/mm3 ()?? 03/13/2024 06:41 Abs. Baso 0.0 k/mm3 ()?? 03/13/2024 06:41 Neut % 66.3 % ()?? 03/13/2024 06:41 Lymph % 17.5 % ()?? 03/13/2024 06:41 [place] % 14.6 % (High)?? 03/13/2024 06:41 Eos % 0.8 % ()?? 03/13/2024 06:41 Baso % 0.4 % ()?? 03/13/2024 06:41 Imm Gran 0.4 % ()?? 03/13/2024 06:41 Abs. Imm Gran 0.0 k/mm3 ()?? 03/13/2024 06:41 ?? CHEM GENERAL Sodium 137 mmol/L ()?? 03/09/2024 06:45 Potassium 4.5 mmol/L ()?? 03/09/2024 06:45 Chloride 102 mmol/L ()?? 03/09/2024 06:45 Bicarbonate Level 25 mmol/L ()?? 03/09/2024 06:45 Anion Gap 10 ()?? 03/09/2024 06:45 BUN 9 mg/dL ()?? 03/09/2024 06:45 Creatinine-Blood 0.37 mg/dL (Low)?? 03/09/2024 06:45 Estimated GFR Creatinine 114 ML/MIN/1.73 M2 ()?? 03/09/2024 06:45 Phosphorus 3.4 mg/dL ()?? 03/09/2024 06:45 Magnesium 1.9 mg/dL ()?? 03/09/2024 06:45 ?? COAG INR 1.7 (High)?? 03/15/2024 06:46 Protime (PT) 17.3 seconds (High)?? 03/15/2024 06:46 ?? HEME OTHER Hold Lavender Top SPECIMEN DISCARDED AFTER 24 HOURS. ()?? 03/14/2024 06:33 ? MISC. CHEMISTRY Hold Gel Top SPECIMEN DISCARDED AFTER 1 WEEK ()?? 03/14/2024 06:33 ? URINE OTHER Est Creatinine Clearance 87.11 mL/min ()?? 03/09/2024 07:51 ? 35_ minutes spent on discharge * Jose Alfredo JIMENEZ, Gisela Hawkins: PERFORM Event Display: Patient Education/Instruction Authored Date: Inpatient Adult Discharge Instructions. [place] [id number] Name: KIM VEGA : 1960?? Visit: 03/05/2024 21:08?? Current Date: 03/15/2024 13:59 ?? Account: [id number]?? Inpatient Adult Discharge Instructions We would like to thank you for allowing us to assist you with your healthcare needs. The following includes patient education materials and information regarding your injury/illness. Our entire staffstrives to provide an excellent experience for our patients and their families. PLEASE ENSURE YOU FOLLOW-UP PER THE INSTRUCTIONS BELOW! ?? YOUR OPINION IS IMPORTANT TO US! Please complete the survey you may receive by mail or email. Your feedback will be used to make improvements to the healthcare experiences of our patients and their families. Surveys are administered by [employer]. ?? If further treatment with your primary care physician or another doctor is recommended, it is important for you to keep the appointment. Call your primary care physician or return to the Emergency Department immediately if your condition worsens, fails to improve, or new symptoms develop. If you need to find a doctor, you can call [facility] [employer] [facility] for a referral at [phone] or toll free at [phone]) or log in to [email or web address] ?? [facility], in keeping with [facility] guidance, no longer requires face masks for staff, patientsor visitors in most situations. Similiar to time spent indoors at other locations, there is the chance that you were exposed to repiratory viruses during your time with us (such as flu or COVID-19). If you develop symptoms concerning for a viral respiratory infection, please seek testing (and treatment if indicated) from your medical provider or home test kit. ?? You can view and manage your care through the patient portal or by using a health care clarissa of your choosing. [employer] is a website that allows you to securely view your medical information including your hospital discharge summary, office visit summaries, medications and follow-up visits. You can also request appointments, renew medications, and request access to your medical information using a health care clarissa of your choosing, or just ask a question. You can enroll at [email or web address] or register during your next office visit. You have been discharged from [facility], Patient Care Unit: D6A??. If you have any questions regarding these instructions, including results of studies pending, afteryou leave, please call us and we will be happy to assist you 06/03. [facility] Your Care Team Attending Physician Dina Ho MD?? Consulting Providers Dina Ho MD?? Discharging Providers Kel BURNETTE, Sveta Cosme Reason for Your Visit Direct admission from oncology clinic for inability to thrive at home?? Your Diagnosis FTT (failure to thrive) in adult Stroke Weakness of right arm Laryngeal carcinoma Flea infestation COPD - Chronic obstructive pulmonary disease/Asthma Tobacco use Underweight Malnutrition Gastrostomy tube in situ Severe protein-energy malnutrition Tobacco smoking behavior - finding, 1/2 ppd up to 2 ppdX51 years Tests Performed Below is a partial list of the tests performed during your hospitalization. You may have had other tests and procedures not included in this list. Please discuss all test results with your provider. BUN Creatinine Electrolytes HOLD GEL TUBE HOLD LAVENDER TUBE INR Magnesium Level Phosphorus Level BUN?? CBC?? CBC w/ Differential?? Creatinine?? Electrolytes?? Hold Gel Top Tube (HOLD GEL TUBE)?? Hold Lavender Top Tube (HOLD LAVENDER TUBE)?? INR?? Magnesium Level?? Phosphorus Level?? Primary Care Provider Mark MENDOZA , Jennifer Darnell? Advance Directive Health Care Proxy on File Yes - Health Care Proxy Discharge Vitals Temperature: 97.4 DegF Height: 155 cm Pulse Rate: 69 bpm Weight: 32.4 kg Respiratory Rate: 18 br/min Body Mass Index:??14.57 kg/m2??Low Systolic Blood Pressure: 126 mm Hg Body surface area: 1.23 Diastolic Blood Pressure:??87 mm Hg??High ?? Oxygen Saturation: 100 % ?? Studies Pending All studies ordered during this hospital stay have been completed unless listed below. Please discuss all pending results with your provider listed above in these instructions. ?? CBC?? CBC w/ Differential?? INR?? What to do next Instructions From Your Doctor ?? Orders??:Regular Diet :As tolerated Status: ??No Resuscitation :Fair? 03/15/24 12:52:00 EDT?? Scheduled Follow-Up Appointments Monday 4:20 PM EDT ?? With: Emma Borges MD Where: [facility] [address] [place] [address]- Status: Pending Monday 10:30 AM EDT ?? Where: [facility] [address] [place] [address]- Status: Pending You Need to Schedule the Following Appointments Follow Up with??Mark MENDOZA , Jennifer Darnell Where: [address] [place] [address]- Discharge Medications KIM VEGA :1960 Visit Date:03/05/2024 Medications: Please continue your medications until treatment is completed or stopped by your provider. Medications not listed below should be discontinued. Discuss any questions related to medications with your provider. What How Much When Instructions Next Dose New Warfarin (warfarin 3 mg oral tablet) 1 tab(s) Oral Daily at supper Pickup at [facility]/pharmacy #[id number] 03/15 today at 6pm Unchanged Acetaminophen (Tylenol 8 HR Arthritis Pain 650 mg oral tablet, extended release) 2 tab(s) Oral Every 8 hours as needed for as needed for pain as needed Unchanged Albuterol (albuterol 0.083% inhalation solution) 3 Milliliter Inhalation Every 6 hours as needed for for wheezing as needed Unchanged Albuterol (ProAir HFA 90 mcg/ inh inhalation aerosol with adapter) 2 puff(s) Inhalation 4 times a day as needed for as needed for wheezing as needed Unchanged Budesonide-Formoterol (Symbicort 80mcg/ 4.5mcg Inhaler) 2 puff(s) Inhalation Twice a day 03/15 tonight Unchanged Dexamethasone (dexamethasone 4 mg oral tablet) See instructions 1 tab (4mg) By Mouth once a day for 3 days as directed after chemo, with food ?? resume home schedule Unchanged Lactulose (lactulose 10 gm/ 15 ml oral syrup) 15 Milliliter Oral Daily as needed for as needed for constipation as needed Unchanged Lidocaine/ Prilocaine Topical (lidocaine-prilocaine 2.5%-2.5% topical cream) See instructions apply small dollop to portacath site 1 hr prior to appt and cover with plastic ?? resume home schedule Unchanged Nicotine (Nicoderm C-Q Clear 21 mg/ 24 hr transdermal film, extended release) 1 patch(es) Topically Daily 03/16 tomorrow morning Unchanged Olanzapine (olanzapine 2.5 mg oral tablet) 1 tab(s) Oral Daily at Bedtime DIRECTED. ?? 03/15 tonight Unchanged Ondansetron (ondansetron 8 mg oral tablet) 1 tab(s) Oral Every 8 hours as needed for as needed for nausea/vomiting as needed Unchanged Oxycodone (oxyCODONE 5 mg/ 5 mL oral solution) 5 Milliliter Oral Every 8 hours resume home schedule Unchanged PROCHLORperazine (prochlorperazine 10 mg oral tablet) 1 tab(s) Oral Every 6 hours as needed for nausea/vomiting may cause drowsiness ?? as needed Unchanged Senna (senna 8.8 mg/ 5 mL oral syrup) 10 Milliliter Oral Daily at Bedtime as needed for for constipation as needed Unchanged Voriconazole (voriconazole 200 mg oral tablet) 200 Milligram Oral Every 12 hours Duration: 30 Days 03/15 tonight at 8pm Pharmacy Information [facility]/pharmacy #[id number]: [address] [place] [id number] [phone] ?? What How Much When Comments Stop Taking Enoxaparin (Lovenox 60 mg/ 0.6 mL injectable solution) 0.5 Milliliter Subcutaneous Injection Daily Duration: 30 Days Stop Taking Ferrous Sulfate (Ferrous Sulfate EC) Stop Taking Miscellaneous Rx (Boost VHC 1 carton (chocolate preferred) Dx: Laryngeal carcinoma) Seeinstructions Pls d/ c previous oral supplement orders. ??Begin Boost VHC 1 carton po (chocolate preferred) tid. Ht: ??150.8cm Wt: ??31.5kg BMI: ??13.8 ?? Stop Taking Pantoprazole (pantoprazole 40 mg oral delayed release tablet) Stop Taking Pramipexole (pramipexole 0.125 mg oral tablet) TAKE 1 TABLET BY MOUTH AT BEDTIME ?? Stop Taking Tramadol (traMADol 5 mg/ mL oral liquid) 10 Milliliter Oral Every 6 hours as needed for Pain , Moderate Prescription Given During Visit Warfarin (warfarin 3 mg oral tablet) - 1 tablet = 3 mg, By Mouth, Daily at supper, # 30 tablet, 0 Refills, [facility]/pharmacy #[id number], [address] [place] [phone]?? Laboratory Results Below is a partial list of the most recent Laboratory test results done prior to this discharge. You may have had other tests and procedures not included in this list. Please discuss all test resultswith your provider. Est Creatinine Clearance - 87.11 mL/min (03/09/2024) BUN (03/09/2024) ???BUN - 9 mg/dL Creatinine (03/09/2024) ???Creatinine-Blood - 0.37 mg/dL???Estimated GFR Creatinine - 114 ML/MIN/1.73 M2 Electrolytes (03/09/2024) ???Sodium - 137 mmol/L???Potassium - 4.5 mmol/L???Chloride - 102 mmol/L???Bicarbonate Level - 25 mmol/L???Anion Gap - 10 HOLD GEL TUBE (03/14/2024) ???Hold Gel Top - SPECIMEN DISCARDED AFTER 1 WEEK HOLD LAVENDER TUBE (03/14/2024) ???Hold Lavender Top - SPECIMEN DISCARDED AFTER 24 HOURS. INR (03/15/2024) ???INR - 1.7???Protime (PT) - 17.3 seconds Magnesium Level (03/09/2024) ???Magnesium - 1.9 mg/dL Phosphorus Level (03/09/2024) ???Phosphorus - 3.4 mg/dL You will be contacted within 72 hours with your results. Allergies (NKA means No Known Allergies) Darvon??(difficulty breathing) doxycycline??(vomiting) hydrochlorothiazide??(unknown) Problems Active Problems??(20) Acid reflux?? Alcohol abuse, 1-7 beers daily, documented 6-12 beers daily in chart?? Ankle pain, left?? Chest pain?? Chronic Helicobacter pylori gastritis?? Claudication?? COPD - Chronic obstructive pulmonary disease/Asthma?? Fibromyalgia?? Gastrostomy tube in situ?? Hypertension?? Jaw clicking?? Laryngeal carcinoma?? Osteoporosis?? PVD - Peripheral vascular disease?? Stroke?? Tachycardia?? Tobacco smoking behavior - finding, 1/2 ppd up to 2 ppdX51 years?? Tubular adenoma of colon, s/p polypectomy?? Underweight?? Weakness of right arm?? Education Materials Below is the list of Educational Leaflet Providered with your Discharge Instructions. [employer] Ignite Patient Education - Warfarin?? Valuables and Belongings I fully understand and agree that [facility] accepts no responsibility for all my personal property including clothing, toilet articles, radios, jewelry, dentures, hearing aids, rings, money, or any other property that is in my possession or is brought to me after admission. I understand certain valuables may be placed in a hospital safe for a short period of time. I understand that the hospital is not liable for loss or damage due to accident, fire, or other natural occurrence while said property is in the safe. I accept full responsibility for any personal property that I keep with me, and will not hold the hospital responsible in case of loss or disappearance. I acknowledge that i have been encouraged to send valuables and belongings home. ? Other Discharge Information ? Case Management Discharge Plan?? Discharge Plan?? Discharge Agency Information?? Discharge Level of Care at Discharge: Homehealth/VNA Name of Agency #1: [facility] Discharge VNA/Hospice/Home Care: [facility] [phone] Service Categories #1: Physical Therapy, Longterm ?? Service Comments #1: [facility] will contact you to set up a time to meet. [facility] [phone] ?? Pulmonary Rehab Status?? Pulmonary Rehab Discharge Status?? Respiratory Rate: 18 br/min ? Common Emergency Awareness Tips IS IT A STROKE? Act FAST and Check for these signs: FACE Does the face look uneven? ARM Does one arm drift down? SPEECH Does their speech sound strange? TIME Call at any sign of stroke ?? Heart Attack Signs Chest discomfort: Most heart attacks involve discomfort in the center of the chest and lasts more than a few minutes, or goes away and comes back. It can feel like uncomfortable pressure, squeezing, fullness or pain. Discomfort in upper body: Symptoms can include pain or discomfort in one or both arms, back, neck, jaw or stomach. Shortness of breath: With or without discomfort. Other signs: Breaking out in a cold sweat, nausea, or lightheaded. Remember, MINUTES DO MATTER. If you experience any of these heart attack warning signs, call to get immediate medical attention! ?? Smoking can increase your chances of developing chronic health problems and can cause harmful effects to other family members in your house. If you smoke, you are strongly encouraged to quit. Please call [facility] [employer] [facility] at [phone] or [phone] ([phone]) or log in to [email or web address] for referrals to smoking cessation programs. ?? 466 Suicide & Crisis Lifeline is available 06/03 if you or someone you know needs to find a reason to keep living. By calling 468 you'll be connected to a skilled, trained counselor at a crisis center in your area. INPATIENT DISCHARGE INSTRUCTIONS SIGNATURE PAGE SILVIAKIM Location:[facility] Registration Date and Time:03/05/2024 21:08 EDT Primary Care Physician: Mark MENDOZA , Jennifer Darnell, Attending Physician: Dina Ho MD, I KIM VEGA, have received the above patient education materials/instructions and have verbalized understanding. If ambulance or transport services are being used I further acknowledge being given a choice of service. ?? If you need to contact me, please call me at this number: . Patient/Condenser Setter Name: Patient/Condenser Setter Signature: Relationship to Patient: Witness Name/Signature: Date: * Sveta Barrios: PERFORM Event Display: Patient Education Leaflets Authored Date: [id number] Warfarin ?? [id number] Warfarin Brand Name(s): Coumadin??, Jantoven??; also available generically IMPORTANT WARNING: Warfarin may cause severe bleeding that can be life-threatening and even cause . Tell your doctor if you have or have ever had a blood or bleeding disorder; bleeding problems, especially in yourstomach or your esophagus (tube from the throat to the stomach), intestines, urinary tract or bladder, or lungs; high blood pressure; heart attack; angina (chest pain or pressure); heart disease; pericarditis (swelling of the lining (sac) around the heart); endocarditis (infection of one or more heart valves); a stroke or ministroke; aneurysm (weakening or tearing of an artery or vein); anemia (low number of red blood cells in the blood); cancer; chronic diarrhea; or kidney, or liver disease. Also tell your doctor if you fall often or have had a recent serious injury or surgery. Bleeding is more likely during warfarin treatment for people over 65 years of age, and it is also more likely during the first month of warfarin treatment. Bleeding is also more likely to occur for people who take high doses of warfarin, or take this medication for a long time. The risk for bleeding while takingwarfarin is also higher for people participating in an activity or sport that may result in seriousinjury. Tell your doctor and pharmacist if you are taking or plan to take any prescription or nonprescription medications, vitamins, nutritional supplements, and herbal or botanical products (See SPECIAL PRECAUTIONS), as some of these products may increase the risk for bleeding while you are takingwarfarin. If you experience any of the following symptoms, call your doctor immediately: pain, swelling, or discomfort, bleeding from a cut that does not stop in the usual amount of time, nosebleeds or bleeding from your gums, coughing up or vomiting blood or material that looks like coffee grounds, unusual bleeding or bruising, increased menstrual flow or vaginal bleeding, pink, red, or dark brown urine, red or tarry black bowel movements, headache, dizziness, or weakness. Some people may respond differently to warfarin based on their heredity or genetic make-up. Your doctor may order a blood test to help find the dose of warfarin that is best for you. Warfarin prevents blood from clotting so it may take longer than usual for you to stop bleeding if you are cut or injured. Avoid activities or sports that have a high risk of causing injury. Call your doctor if bleeding is unusual or if you fall and get hurt, especially if you hit your head. Keep all appointments with your doctor and the laboratory. Your doctor will order a blood test (PT [prothrombin test] reported as INR [international normalized ratio] value) regularly to check your body's response to warfarin. If your doctor tells you to stop taking warfarin, the effects of this medication may last for 2 to 5 days after you stop taking it. Your doctor or pharmacist will give you the [employer]'s patient information sheet (Medication Guide) when you begin treatment with warfarin and each time you refill your prescription. Read the information carefully and ask your doctor or pharmacist if you have any questions. You can also visit the Food and Drug Administration (FDA) website (http://www.fda.gov/downloads/Drugs/DrugSafety/qwp749916.pdf) or the [employer] website to obtain the Medication Guide. Talk to your doctor about the risk(s) of taking warfarin. WHY is this medicine prescribed? Warfarin is used to prevent blood clots from forming or growing larger in your blood and blood vessels. It is prescribed for people with certain types of irregular heartbeat, people with prosthetic (replacement or mechanical) heart valves, and people who have suffered a heart attack. Warfarin is also used to treat or prevent venous thrombosis (swelling and blood clot in a vein) and pulmonary embolism (a blood clot in the lung). Warfarin is in a class of medications called anticoagulants ('bloodthinners'). It works by decreasing the clotting ability of the blood. HOW should this medicine be used? Warfarin comes as a tablet to take by mouth. It is usually taken once a day with or without food. Take warfarin at around the same time every day. Follow the directions on your prescription label carefully, and ask your doctor or pharmacist to explain any part you do not understand. Take warfarin exactly as directed. Do not take more or less of it or take it more often than prescribed by your doctor. Call your doctor immediately if you take more than your prescribed dose of warfarin. Your doctor will probably start you on a low dose of warfarin and gradually increase or decrease your dose based on the results of your blood tests. Make sure you understand any new dosing instructions from your doctor. Continue to take warfarin even if you feel well. Do not stop taking warfarin without talking to your doctor. Are there OTHER USES for this medicine? This medication may be prescribed for other uses; ask your doctor or pharmacist for more information. What SPECIAL PRECAUTIONS should I follow? Before taking warfarin, ??? tell your doctor and pharmacist if you are allergic to warfarin, any other medications, or any of the ingredients in warfarin tablets. Ask your pharmacist or check the Medication Guide for a listof the ingredients. ??? do not take two or more medications that contain warfarin at the same time.Be sure to check with your doctor or pharmacist if you are uncertain if a medication contains warfarin or warfarin sodium. ??? tell your doctor and pharmacist what prescription and nonprescription medications, vitamins, and nutritional supplements you are taking or plan to take, especially acyclovir (Zovirax); allopurinol (Zyloprim); alprazolam (Xanax); antibiotics such as ciprofloxacin (Cipro), clarithromycin (Biaxin, in Prevpac), erythromycin (E.E.S., Eryc, Yamil-Tab), nafcillin, norfloxacin (Noroxin), sulfinpyrazone, telithromycin (Ketek), and tigecycline (Tygacil); anticoagulants such as argatroban (Acova), dabigatran (Pradaxa), bivalirudin (Angiomax), desirudin (Iprivask), heparin, and lepirudin (Refludan); antifungals such as fluconazole (Diflucan), itraconazole (Onmel, Sporanox), keto conazole (Nizoral), miconazole (Monistat), posaconazole (Noxafil), terbinafine (Lamisil), voriconazole (Vfend); antiplatelet medications such as cilostazol (Pletal), clopidogrel (Plavix), dipyridamole (Persantine, in Aggrenox), prasugrel (Effient), and ticlopidine (Ticlid); aprepitant (Emend); aspirin or aspirin-containing products and other nonsteroidal anti-inflammatory drugs such as celecoxib (Celebrex), diclofenac (Flector, Voltaren, in Arthrotec), diflunisal, fenoprofen (Nalfon), ibuprofen(Advil, Motrin), indomethacin (Indocin), ketoprofen, ketorolac, mefenamic acid (Ponstel), naproxen (Aleve, Naprosyn), oxaprozin (Daypro), piroxicam (Feldene), and sulindac (Clinoril); bicalutamide; bosentan; certain antiarrhythmic medications such as amiodarone (Cordarone, Nexterone, Pacerone), mexiletine, and propafenone (Rythmol); certain calcium channel blocking medications such as amlodipine (Norvasc, in Amanda, Caduet, Exforge, Lotrel, Twynsta), diltiazem (Cardizem, Cartia XT, Dilacor XR, Tiazac) and verapamil (Calan, Isoptin, Verelan, in Tarka); certain medications for asthma such as montelukast (Singulair), zafirlukast (Accolate), and zileuton (Zyflo); certain medications used to treatcancer such as capecitabine (Xeloda), imatinib (Gleevec), and nilotinib (Tasigna); certain medications for cholesterol such as atorvastatin (Lipitor, in Caduet) and fluvastatin (Lescol); certain medications for digestive disorders such as cimetidine (Tagamet), famotidine (Pepcid), and ranitidine (Zantac); certain medications for human immunodeficiency virus (HIV) infection such as amprenavir, atazanavir (Reyataz), efavirenz (Sustiva), etravirine (Intelence), fosamprenavir (Lexiva), indinavir (Crixivan), lopinavir/ritonavir, nelfinavir (Viracept), ritonavir (Norvir), saquinavir (Invirase), andtipranavir (Aptivus); certain medications for narcolepsy such as armodafinil (Nuvigil) and modafinil (Provigil); certain medications for seizures such as carbamazepine (Carbatrol, Equetro, Tegretol), phenobarbital, phenytoin (Dilantin, Phenytek), and rufinamide (Banzel); certain medications to treat tuberculosis such as isoniazid (in Rifamate, Rifater) and rifampin (Rifadin, in Rifamate, Rifater); certain selective serotonin reuptake inhibitors (SSRIs) or selective serotonin and norepinephrine reuptake inhibitors (SNRIs) such as citalopram (Celexa), desvenlafaxine (Pristiq), duloxetine (Cymbalta), escitalopram (Lexapro), fluoxetine (Prozac, Sarafem, in Symbyax), fluvoxamine (Luvox), milnacipran (Savella), paroxetine (Paxil, Pexeva), sertraline (Zoloft), venlafaxine (Effexor) corticosteroids such as prednisone; cyclosporine (Neoral, Sandimmune); disulfiram (Antabuse); methoxsalen (Oxsoral en, Uvadex); metronidazole (Flagyl); nefazodone (Serzone), oral contraceptives ( control pills); oxandrolone (Oxandrin); pioglitazone (Actos, in Actoplus Met, Duetact, Oseni); propranolol (Inderal) or vilazodone (Viibryd). Many other medications may also interact with warfarin, so be sure to tell your doctor about all the medications you are taking, even those that do not appear on this list. Do not take any new medications or stop taking any medication without talking to your doctor. ??? tell your doctor and pharmacist what herbal or botanical products you are taking, especially coenzyme Q10 (Ubidecarenone), Echinacea, garlic, Ginkgo biloba, ginseng, goldenseal, and Kayla's wort. Th ere are many other herbal or botanical products which might affect your body's response to warfarin. Do not start or stop taking any herbal products without talking to your doctor. ??? tell your doctor if you have or have ever had diabetes. Also tell your doctor if you have an infection, a gastrointestinal illness such as diarrhea, or sprue (an allergic reaction to protein found in grains that causes diarrhea), or an indwelling catheter (a flexible plastic tube that is placed into the bladder to allow the urine to drain out). ??? Tell your doctor if you are , think you might be , or plan to become while taking warfarin. women should not take warfarin unless they have a mechanical heart valve. Talk to your doctor about the use of effective control while taking warfarin. If you become while taking warfarin, call your doctor immediately. Warfarin may harm the fetus. ??? tell your doctor if you are breast-feeding. ??? if you are having surgery, including dental surgery, or any type of medical or dental procedure, tell the doctor or dentist that you are taking warfarin. Your doctor may tell you to stop taking warfarin before the surgery or procedure or change your dosage of warfarin before the surgery or procedure. Follow your doctor'sdirections carefully and keep all appointments with the laboratory if your doctor orders blood tests to find the best dose of warfarin for you. ??? ask your doctor about the safe use of alcoholic beverages while you are taking warfarin. ??? tell your doctor if you use tobacco products. Cigarette smoking may decrease the effectiveness of this medication. What SPECIAL DIETARY instructions should I follow? Eat a normal, healthy diet. Some foods and beverages, particularly those that contain vitamin K, can affect how warfarin works for you. Ask your doctor or pharmacist for a list of foods that contain vitamin K. Eat consistent amounts of vitamin K-containing food on a penr-zk-cxrg basis. Do not eat large amounts of leafy, green vegetables or certain vegetable oils that contain large amounts of vitamin K. Be sure to talk to your doctor before you make any changes in your diet. Talk to your doctor about eating grapefruit and drinking grapefruit juice while taking this medication. What should I do IF I FORGET to take a dose? Take the missed dose as soon as you remember it, if it is the same day that you were to take the dose. Do not take a double dose the next day to make up for a missed one. Call your doctor if you shelly dose of warfarin. What SIDE EFFECTS can this medicine cause? Warfarin may cause side effects. Tell your doctor if any of these symptoms are severe or do not go away: ??? gas ??? abdominal pain ??? bloating ??? change in the way things taste ??? loss of hair ??? feeling cold or having chills ??? If you experience any of the following symptoms, or those listed in the IMPORTANT WARNING section, call your doctor immediately: ??? hives ??? rash ??? itching ??? difficulty breathing or swallowing ??? swelling of the face, throat, tongue, lips, or eyes ??? hoarseness??? chest pain or pressure ??? swelling of the hands, feet, ankles, or lower legs ??? fever ??? infection ??? nausea ??? vomiting ??? diarrhea ??? extreme tiredness ??? lack of energy ??? loss of appetite ??? pain in the upper right part of the stomach ??? yellowing of the skin or eyes ??? flu-likesymptoms You should know that warfarin may cause necrosis or gangrene ( of skin or other body tissues).Call your doctor immediately if you notice a purplish or darkened color to your skin, skin changes,ulcers, or an unusual problem in any area of your skin or body, or if you have a severe pain that occurs suddenly, or color or temperature change in any area of your body. Call your doctor immediately if your toes become painful or become purple or dark in color. You may need medical care right away to prevent amputation (removal) of your affected body part. Warfarin may cause other side effects. Call your doctor if you have any unusual problems while taking this medication. What should I know about STORAGE and DISPOSAL of this medication? Keep this medication in the container it came in, tightly closed, and out of reach of children. Store it at room temperature and away from excess heat, moisture (not in the bathroom), and light. Unneeded medications should be disposed of in special ways to ensure that pets, children, and otherpeople cannot consume them. However, you should not flush this medication down the toilet. Instead,the best way to dispose of your medication is through a medicine take-back program. Talk to your pharmacist or contact your local garbage/recycling department to learn about take-back programs in your community. See the FDA's Safe Disposal of Medicines website (http://goo.gl/c4Rm4p) for more information if you do not have access to a take- back program. It is important to keep all medication out of sight and reach of children as many containers (such as weekly pill minders and those for eye drops, creams, patches, and inhalers) are not child-resistant and young children can open them easily. To protect young children from poisoning, always lock safety caps and immediately place the medication in a safe location ??? one that is up and away and out of their sight and reach. http://www.upandaway.org What should I do in case of OVERDOSE? In case of overdose, call the poison control helpline at . Information is also available online at https://www.poisonhelp.org/help. If the victim has collapsed, had a seizure, has trouble breathing, or can't be awakened, immediately call emergency services at 289. Symptoms of overdose may include the following: ??? bloody or red, or tarry bowel movements ??? spitting or coughing up blood ??? heavy bleeding with your menstrual period ??? pink, red, or dark brown urine ??? coughing up or vomiting material that looks like coffee grounds ??? small, flat, round red spots under the skin ??? unusual bruising or bleeding ??? continued oozing or bleeding from minor cuts What OTHER INFORMATION should I know? Carry an identification card or wear a bracelet stating that you take warfarin. Ask your pharmacistor doctor how to obtain this card or bracelet. List your name, medical problems, medications and dosages, and doctor's name and telephone number on the card. Tell all your healthcare providers that you take warfarin. Do not let anyone else take your medication. Ask your pharmacist any questions you have about refilling your prescription. It is important for you to keep a written list of all of the prescription and nonprescription (dhgn-hds-vpfxgrz) medicines you are taking, as well as any products such as vitamins, minerals, or otherdietary supplements. You should bring this list with you each time you visit a doctor or if you areadmitted to a hospital. It is also important information to carry with you in case of emergencies. This report on medications is for your information only, and is not considered individual patient advice. Because of the changing nature of drug information, please consult your physician or pharmacist about specific clinical use. The [place] [employer] represents that the information provided hereunder was formulated with a reasonable standard of care, and in conformity with professional standards in the field. The [place] [employer] makes no representations or warranties, express or implied, including, but not limited to, any implied warranty of merchantability and/or fitness for a particular purpose, with respect to such information and specifically disclaims all such warranties. Users are advised that decisions regarding drug therapy are complex medical decisions requiring the independent, informed decision of an appropriate health home health care physician, and the information is provided for informational purposes only. The entire monograph for a drug should be reviewed for a thorough understanding of the drug's actions, uses and side effects. The [place] [employer] does not endorse or recommend the use of any drug.The information is not a substitute for medical care. AHFS?? Patient Medication Information???. ?? Copyright, 2023. The [place] [employer]??, [address], [address], [place], [place]. All Rights Reserved. Duplication for commercial use must be authorized by [facility]. Selected Revisions: January 26, 2017. AHFS?? Patient Medication Information???. ?? Copyright, 2023 ?? Patient Care team information Care Team Personnel Name: Caitlyn Orellana RN Position: [facility] RN Member Role: Primary Care Nurse Name: Jazlyn Marquez RN Position: [facility] BARBARA Supv Member Role: Primary Care Nurse Name: Katelin Mcfadden RN Position: [facility] ALEXYS Nurse Member Role: Primary Care Nurse Name: Jude Mejia Position: [facility] [place] Supv Member Role: Primary Care Nurse Name: Jennifer Flores MD Position: Reference Physician Member Role: PCP Address: Address: [address] [place], [place] [address] Name: Kemi Carpenter RN Position: [facility] RN Member Role: Primary Care Nurse Name: Zaida Gaspar RN Position: [facility] RN Member Role: Primary Care Nurse Name: Kemi Henry RN Position: [facility] Onco RN Member Role: Primary Care Nurse Name: Robert Arechiga RN Position: [facility] RN Member Role: Primary Care Nurse Name: Sienna Merida RN Position: [facility] Onco RN Member Role: Primary Care Nurse Name: Baltazar Villar RN Position: [facility] RN Member Role: Primary Care Nurse Name: Zoila Segundo RN Position: [facility] AMB Nurse Member Role: Primary Care Nurse Name: Izabel Cruz RN Position: [facility] RN Member Role: Primary Care Nurse Name: Betty Gomez RN Position: [facility] SN RN Member Role: Primary Care Nurse Name: Katy Jay RN Position: [facility] RN Member Role: Primary Care Nurse Name: Sarah Hammonds RN Position: [facility] Onco RN Member Role: Primary Care Nurse Name: Cabrera Peraza RN Position: [facility] RN Member Role: Primary Care Nurse Name: Garfield Chow RN Position: [facility] RN Member Role: Primary Care Nurse Name: Mitzi Blue RN Position: [facility] Onco RN Member Role: Primary Care Nurse Name: Ananda Pruitt RN Position: [facility] RN Member Role: Primary Care Nurse Name: Radha Gunn RN Position: [facility] RN Member Role: Primary Care Nurse Care Team Related Persons Name: FARAZROSIO CONI Name: REGI LAZAR Name: HELIO MOORE Address: home [address], [place] Name: CINTHYA LANG Address: home [address], [place] Name: SAIMA PERDUE Address: home [address] [place], [place] Name: SAIMA BORGES Address: home [address] [place], [place]
--- OUTSIDE RECORDS SUMMARY | 2024-05-25 15:15 | XMS_ITS | Continuity of Care Document ---
Author Organization [facility] Address [address] [place] [address]- Care Team Providers Care School Crossing Guard Name Role Phone Mark MENDOZA, Jennifer Darnell Primary Care Physician [place] [facility] [place]/22/23 - 03/24/23 [facility] [address] [place], [place] [address] Attending Physician: AdmTatyana fowler Admitting Physician: Admtr, Ar8 Referring Physician: Admtr, Ar8 Allergies, Adverse Reactions, Alerts Substance Reaction Severity Status doxycycline vomiting Active aspirin 1, 2 n/v Active hydrochlorothiazide unknown Active Tylenol Nauseated Active Darvon difficulty breathing Active 1pt states able to tolerate 81mg , 325mg unable to tolerate causes nausea/ vomiting 2Patient had vomiting with 325 mg aspirin but has been able to take 81 mg Medications albuterol 0.083% inhalation solution 3 mL = 2.5 mg, Inhalation, Every 6 hours, PRN for wheezing, # 25 each, 0 Refills, Maintenance, 02/03/22 10:50:00 EDT, Solution, Partial fill upon patient request if the prescription is for a scheduleII opioid drug. Start Date: 02/03/22 Status: Ordered Cane See Instructions, # 1 each, Maintenance, 1 each, 04/07/10 20:16:32 Start Date: 04/07/10 Status: Ordered clopidogrel 75 mg oral tablet 1, tablet, By Mouth, Daily, # 90 tablet, Refills 1, Maintenance, 11/14/22 7:49:00 EDT, Route to Pharmacy Electronically, [id number], 154.94, cm, 02/18/22 8:56:00 EDT, Height, 43.1, kg, 02/18/22 8:56:00 EDT, Dry Weight Start Date: 11/14/22 Status: Ordered Ferrous Sulfate EC Refills 0, Maintenance, 02/03/22 10:55:00 EDT, Partial fill upon patient request if the prescription is for a schedule II opioid drug. Start Date: 02/03/22 Status: Ordered pantoprazole 40 mg oral delayed release tablet 0 Refills, Maintenance, 12/03/21 8:46:00 EDT Start Date: 12/03/21 Status: Ordered Plavix 75 mg oral tablet 75 mg, 1, tablet, By Mouth, Daily, # 30 tablet, Refills 5, Tot. Refills 5, Maintenance, 07/07/20 13:21:00 EST, Route to Pharmacy Electronically, [facility] #[id number], 155, cm, 07/07/20 13:19:00 EST, Height, 39.6, kg, 06/03/20 17:24:00 EDT, Dry... Start Date: 07/07/20 Stop Date: 01/03/21 Status: Ordered ProAir HFA 90 mcg/inh inhalation aerosol with adapter 2, puffs, Inhalation, 4 times a day, Scheduled / PRN, 1, each, 11, 11, 10/09/08 10:34:02, as neededfor wheezing, Print VENKAT Number, 65 Start Date: 10/09/08 Status: Ordered rOPINIRole 0.5 mg oral tablet 2 tablet = 1 mg, By Mouth, Daily at bedtime, 0 Refills, Maintenance, 02/03/22 10:56:00 EDT, Partialfill upon patient request if the prescription is for a schedule II opioid drug. Start Date: 02/03/22 Status: Ordered Symbicort 80mcg/4.5mcg Inhaler 2, puffs, [...] opioid drug. Start Date: 02/03/22 Status: Ordered Problem List Condition Confirmation Course Effective Dates Status Health St atus Informant Acid reflux Confirmed Active Alcohol abuse, 1-7 beers daily, documented 6-12 beers daily in chart Confirmed Active Claudication Confirmed Active COPD - Chronic obstructive pulmonary disease/Asthma Confirmed Active Fibromyalgia Confirmed Active Chronic Helicobacter pylori gastritis Confirmed 2006 Active Hypertension Confirmed Active Osteoporosis Confirmed Active PVD - Peripheral vascular disease Confirmed Active Tachycardia Confirmed Active Jaw clicking Confirmed Active Tobacco smoking behavior - finding, 1/2 ppd up to 2 ppdX51 years Confirmed Active Tubular adenoma of colon, s/p polypectomy Confirmed Active Underweight Confirmed Active Social History Social History Type Response Smoking Status Current every day sm susannah entered on: 01/26/15 Sex Patient Care team information Care Team Personnel Name: Katelin Mcfadden RN Position: S RN Member Role: Primary Care Nurse Name: Mark MENDOZA , Jennifer Darnell Position: Reference Physician Member Role: PCP Address: Address: [address] [place] [id number]- Name: Robert Arechiga RN Position: [facility] RN Member Role: Primary Care Nurse Name: Betty Gomez RN Position: [facility] SN RN Member Role: Primary Care Nurse Care Team Related Persons Name: CONI DEAL Name: HELIO MOORE Address: home [address] [place], [place] Name: CINTHYA LANG Address: home [address], [place] Name: MICK ALARCON Address: home [address] [place], [place] Name: SAIMA PERDUE Address: home [address] [place], [place] Name: SAIMA REYEZ Address: home [address] [place], [place]
--- OUTSIDE RECORDS SUMMARY | 2024-05-25 15:15 | XMS_ITS | Continuity of Care Document ---
Author Organization [facility] Address [address] [place] [address]- Care Team Providers Care Boatswains Mate Name Role Phone Mark MENDOZA, Jennifer Darnell Primary Care Physician Encounter 06/06/20 - 07/28/20 [facility] [address] [place] [address]- Discharge Disposition: [facility] Allergies, Adverse Reactions, Alerts Substance Reaction Severity Status doxycycline vomiting Active aspirin 1, 2 Active hydrochlorothiazide unknown Active Tylenol Nauseated Active Darvon Active 1pt states able to tolerate 81mg , 325mg unable to tolerate causes nausea/ vomiting 2Patient had vomiting with 325 mg aspirin but has been able to take 81 mg Medications amLODIPine 5 mg oral tablet 5 mg, 1, tablet, By Mouth, Daily, # 30 tablet, Refills 0, Maintenance, 12/14/18 9:02:34 EDT Start Date: 12/14/18 Status: Ordered aspirin 81 mg oral tablet, chewable 81 mg, 1, tablet, By Mouth, Daily, # 30 tablet, Refills 0, Maintenance, 12/14/18 9:02:25 EDT Start Date: 12/14/18 Status: Ordered Cane See Instructions, # 1 each, Maintenance, 1 each, 04/07/10 20:16:32 Start Date: 04/07/10 Status: Ordered lisinopril 5 mg oral tablet 5 mg, 1, tablet, By Mouth, Daily, Refills 0, Maintenance, 03/13/20 11:26:00 EDT Start Date: 03/13/20 Status: Ordered Plavix 75 mg oral tablet 75 mg, 1, tablet, By Mouth, Daily, # 30 tablet, Refills 5, Tot. Refills 5, Maintenance, 07/07/20 13:21:00 EST, Route to Pharmacy Electronically, [facility] #[id number], 155, cm, 07/07/20 13:19:00 EST, Height, 39.6, kg, 06/03/20 17:24:00 EDT, Dry... Start Date: 07/07/20 Stop Date: 01/03/21 Status: Ordered ProAir HFA 90 mcg/inh inhalation aerosol with adapter 2, puffs, Inhalation, 4 times a day, Scheduled / PRN, 1, each, 11, 11, 10/09/08 10:34:02, as neededfor wheezing, Print VENKAT Number, 65 Start Date: 10/09/08 Status: Ordered Symbicort 80mcg/4.5mcg Inhaler 2, puffs, Inhalation, 2 times a day, Refills 0, Maintenance, 10/10/16 13:06:31 Start Date: 10/10/16 Status: Ordered Problem List Condition Effective Dates Status Health Status Inform ant Acid reflux(Confirmed) Active Alcohol abuse, 1-7 beers samantha ly, documented 6-12 beers daily in chart(Confirmed) Active Claudication(Confirmed) Active COPD - Chronic obstructive p ulmonary disease/Asthma(Confirmed) Active Fibromyalgia(Confirmed) Active Chronic Helicobacter pylori gastritis(Confirmed) 2006 Active Hypertension(Confirmed) Active Osteoporosis(Confirmed) Active PVD - Peripheral vascular disease(Confirmed) Active Tachycardia(Confirmed) Active Jaw clicking(Confirmed) Active Tobacco smoking behavior - f inding, 1/2 ppd up to 2 ppdX51 years(Confirmed) Active Tubular adenoma of colon, s/ p polypectomy(Confirmed) Active Social History Social History Type Response Smoking Status Current every day yissel davalos entered on: 01/26/15 Sex
--- OUTSIDE RECORDS SUMMARY | 2024-05-25 15:15 | XMS_ITS | Continuity of Care Document ---
Author Organization [facility] Address [address] [place] [address]- Care Team Providers Care Central Supply Manager Name Role Phone Mark MENDOZA, Jennifer Darnell Primary Care Physician Encounter [facility] [place] Date(s): 02/18/22 - 02/25/22 [facility] [address] [place], [place] [address] Attending Physician: Dillon Guillory MD Admitting Physician: Dillon Guillory MD Referring Physician: Jennifer Flores MD Allergies, Adverse Reactions, Alerts Substance Reaction [...] Mouth, Daily, # 90 tablet, Refills 1, Route to Pharmacy Electronically, [id number], 155, cm, 12/03/21 8:45:00 EDT, Height, 39.6, kg, 06/03/20 17:24:00 EDT, Dry Weight Start Date: 12/09/21 Status: Ordered Ferrous Sulfate EC Refills 0, [...] 07/07/20 13:21:00 EST, Route to Pharmacy Electronically, [facility] #[id number], 155, cm, 07/07/20 13:19:00 EST, Height, 39.6, kg, 06/03/20 17:24:00 EDT, Dry... Start Date: 07/07/20 Stop Date: 01/03/21 Status: Ordered ProAir HFA 90 mcg/inh inhalation aerosol with adapter 2, puffs, Inhalation, 4 times a day, Scheduled / PRN, 1, each, , , 10/09/08 10:34:02, as neededfor wheezing, Print VENKAT [...] Date: 02/03/22 Status: Ordered Problem List Condition Effective Dates [...] adenoma of colon, s/ p polypectomy(Confirmed) Active Underweight(Confirmed) Active Vital Signs Most recent to oldest [Reference Range]: 1 Height 154.94 cm (02/18/22 8:56 AM) Weight 43.1 kg (02/18/22 8:56 AM) Oxygen Saturation [94-100 %] 98 % (02/18/22 8:56 AM) Pulse Rate [55-90 bpm] 72 bpm (02/18/22 8:56 AM) Body Mass Index [18.5-24.99] 17.95 *L* (02/18/22 8:56 AM) Blood Pressure [90-138/55-84 mm Hg] 162/ 78mm Hg *H* (02/18/22 8:56 AM) Mode of Delivery (Oxygen) Room air (02/18/22 8:56 AM) Blood pressure sites Arm, right (02/18/22 8:56 AM) Dry Weight 43.1 kg (02/18/22 8:56 AM) Weight Obtained Via Patient/family state d (02/18/22 8:56 AM) Dry Weight Obtained Via Patient/family s tated (02/18/22 8:56 AM) Social History Social History Type Response Smoking Status Current every day yissel davalos entered on: 01/26/15 Sex
--- OUTSIDE RECORDS SUMMARY | 2024-05-25 15:15 | XMS_ITS | Continuity of Care Document ---
Author Organization [facility] Address [address] [place] [address]- Care Team Providers Care Shuttle Filler Name Role Phone Mark MENDOZA, Jennifer Darnell Primary Care Physician [place] [facility] [place] [id number] Date(s): 12/26/23 - 02/11/24 [facility] [address] [place] [address]- Attending Physician: Danya MENDOZA, Kye Admitting Physician: Danya MENDOZA, Kye Referring Physician: Salomón MENDOZA, Millicent Allergies, Adverse Reactions, Alerts Substance Reaction Severity Status doxycycline vomiting Active aspirin 1, 2 n/v Active hydrochlorothiazide unknown Active Darvon difficulty breathing Active 1pt states [...] opioid drug. Start Date: 02/03/22 Status: Ordered Boost [facility] 1 carton (chocolate preferred) Dx: Laryngeal carcinoma Boost [facility] 1 carton (chocolate preferred) Dx: Laryngeal carcinoma, See Instructions, # 90 each, Refills 11, Tot. Refills 11, Maintenance, Pls d/c previous oral supplement orders. Begin Boost [facility] 1 carton po (chocolate preferred) tid. Ht: 150.8cm Wt... Start Date: 01/30/24 Status: Ordered Cane See Instructions, # 1 each, Maintenance, 1 each, 04/07/10 20:16:32 Start Date: 04/07/10 Status: Ordered clopidogrel 75 mg oral tablet 1, tablet, By Mouth, Daily, # 90 tablet, Refills 1, Maintenance, 11/14/22 7:49:00 EDT, Route to Pharmacy Electronically, [id number], 154.94, cm, 02/18/22 8:56:00 EDT, Height, 43.1, kg, 02/18/22 8:56:00 EDT, Dry Weight Start Date: 11/14/22 Status: Ordered dexamethasone 4 mg oral tablet See Instructions, 1 tab (4mg) By Mouth once a day for 3 days as directed after chemo, with food, # 18 tablet, 0 Refills, Maintenance, 01/29/24 14:25:00 EDT, [id number], Partial fill upon patient request, 155, cm, 01/16/24 6:10:00 EDT, Height... Start Date: 01/29/24 Status: Ordered Ferrous Sulfate EC Refills 0, Maintenance, 02/03/22 10:55:00 EDT, Partial fill upon patient request if the prescription is for a schedule II opioid drug. Start Date: 02/03/22 Status: Ordered lidocaine-prilocaine 2.5%-2.5% topical cream See Instructions, apply small dollop to [facility] 1 hr prior to appt and cover with plastic, #30 Gm, 1 Refills, Maintenance, 01/29/24 14:24:00 EDT, Cream, [id number], Partial fill upon patient request if the prescription is for a schedul... Start Date: 01/29/24 Status: Ordered olanzapine 2.5 mg oral tablet See Instructions, 1 tablet By Mouth at bedtime for 3 nights with each chemo, as directed., # 18 tablet, Refills 0, Tot. Refills 0, Maintenance, 01/29/24 14:23:00 EDT, Instructions Replace Required Details, Route to Pharm[facility]ically, [facility] Start Date: 01/29/24 Status: Ordered ondansetron 8 mg oral tablet 1 tablet = 8 mg, By Mouth, Every 8 hours, PRN as needed for nausea/vomiting, # 30 tablet, 1 Refills, Maintenance, 01/29/24 14:24:00 EDT, Tablet, [id number], Partial fill upon patient request if the prescription is for a schedule II opioid drug... Start Date: 01/29/24 Status: Ordered pantoprazole 40 mg oral delayed release tablet 0 Refills, Maintenance, 12/03/21 8:46:00 EDT Start Date: 12/03/21 Status: Ordered Plavix 75 mg oral tablet 75 mg, 1, tablet, By Mouth, Daily, # 30 tablet, Refills 5, Tot. Refills 5, Maintenance, 07/07/20 13:21:00 EST, Route to Pharmacy Electronically, [facility] #[id number], 155, cm, 07/07/20 13:19:00 EST, Height, 39.6, kg, 06/03/20 17:24:00 EDT, Dry... Start Date: 07/07/20 Stop Date: 01/03/21 Status: Ordered pramipexole 0.125 mg oral tablet TAKE 1 TABLET BY MOUTH AT BEDTIME Start Date: 01/12/24 Status: Ordered ProAir HFA 90 mcg/inh inhalation [...] tablet, 1 Refills, Maintenance, 01/29/24 14:24:00 EDT, [facility] #[id number], Partial fill upon patient requestif the prescription is for a schedule II opioid sheldon... Start Date: 01/29/24 Status: Ordered rOPINIRole 0.5 mg oral tablet 2 tablet = 1 mg, By Mouth, Daily at bedtime, 0 Refills, Maintenance, 02/03/22 10:56:00 EDT, Partialfill upon patient request if the prescription is for a schedule II opioid drug. Start Date: 02/03/22 Status: Ordered Symbicort 80mcg/4.5mcg Inhaler 2, puffs, Inhalation, 2 times a day, Refills 0, Maintenance, 10/10/16 13:06:31 Start Date: 10/10/16 Status: Ordered traMADol 5 mg/mL oral liquid 10 mL = 50 mg, By Mouth, Every 6 hours, PRN Pain , Moderate, # 240 mL, 1 Refills, Maintenance, 01/19/24 11:08:00 EDT, Liquid, [facility]/pharm[facility] #[id number], Partial fill upon patient request if the prescriptionis for a schedule II opioid drug., 155, cm, ... Start Date: 01/19/24 Status: Ordered Tylenol 8 HR Arthritis Pain [...] pack or more)/day in last 30 days; Type: Cigarettes entered on: 01/15/24 Sex Patient Care team information Care Team Personnel Name: Katelin Mcfadden RN Position: [facility] RN Member Role: Primary Care Nurse Name: Mark MENDOZA , Jennifer Darnell Position: Reference Physician Member Role: PCP Address: Address: [address] [place], [place] [address] Name: Kemi Henry RN Position: [facility] Onco RN Member Role: Primary Care Nurse Name: Robert Arechiga RN Position: [facility] RN Member Role: Primary Care Nurse Name: Zoila Segundo RN Position: [facility] AMB Nurse Member Role: Primary Care Nurse Name: Betty Gomez RN Position: [facility] SN RN Member Role: Primary Care Nurse Name: Cabrera Peraza RN Position: [facility] RN Member Role: Primary Care Nurse Care Team Related Persons Name: CONI DEAL Name: REGI LAZAR Name: HELIO MOORE Address: home [address], [place] Name: CINTHYA LANG Address: [address], [place] Name: SAIMA PERDUE Address: home [address] [place] [address] [address] [place], [place] Name: SAIMA REYEZ Address: home [address] [place] [address] [address] [place] [address]
--- OUTSIDE RECORDS SUMMARY | 2024-05-25 15:15 | XMS_ITS | Continuity of Care Document ---
Author Organization [facility] Address [address] [place] [address]- Care Team Providers Care Educational Technology Coordinator Name Role Phone Mark MENDOZA, Jennifer Darnell Primary Care Physician [place] [facility] [place] [id number] Date(s): 12/17/20 - 01/16/21 [facility] [address] [place], [place] [address] Attending Physician: Tatyana Noyola Admitting Physician: Admtr, Tatyana Referring Physician: Admtr, ArDanyel Allergies, Adverse Reactions, Alerts Substance Reaction Severity Status doxycycline vomiting Active Tylenol Nauseated Active Darvon Active aspirin 1, 2 Active hydrochlorothiazide unknown Active 1pt states able to tolerate 81mg [...] 07/07/20 13:21:00 EST, Route to Pharmacy Electronically, [facility] #[id number], 155, cm, 07/07/20 13:19:00 EST, Height, 39.6, kg, 06/03/20 17:24:00 EDT, Dry... Start Date: 07/07/20 Stop Date: 01/03/21 Status: Ordered Plavix 75 mg oral tablet 75 mg, 1, tablet, By Mouth, Daily, # 30 tablet, Refills 5, Tot. Refills 5, Maintenance, 12/16/20 14:13:00 EDT, Route to Pharmacy Electronically, [facility] #[id number], 155, cm, 07/07/20 13:19:00 EST, Height, 39.6, kg, 06/03/20 17:24:00 EDT, Dry... Start Date: 12/16/20 Stop Date: 06/14/21 Status: Ordered ProAir HFA 90 mcg/inh inhalation [...] Response Smoking Status Current every day sm oker entered on: 01/26/15 Sex
--- OUTSIDE RECORDS SUMMARY | 2024-05-25 15:15 | XMS_ITS | Continuity of Care Document ---
Author Organization [facility] Address [address] [place] [address]- Care Team Providers Care Label Drier Name Role Phone Mark MENDOZA, Jennifer Darnell Primary Care Physician Encounter [facility] Date(s): 03/13/20 - 03/20/20 [facility] [address] [place] [address]- [facility] Attending Physician: Dillon Guillory MD Admitting Physician: Dillon Guillory MD Referring Physician: Jennifer Flores MD Allergies, Adverse Reactions, Alerts Substance Reaction Severity Status doxycycline vomiting Active aspirin 1, 2 Active hydrochlorothiazide unknown Active Darvon Active 1pt states able to [...] 04/07/10 20:16:32 Start Date: 04/07/10 Status: Ordered Cetirizine = 10 mg, 0 Refills, Maintenance, 03/13/20 11:26:00 EDT Start Date: 03/13/20 Status: Ordered lisinopril 5 mg oral tablet 5 mg, 1, tablet, By Mouth, Daily, Refills 0, Maintenance, 03/13/20 11:26:00 EDT Start Date: 03/13/20 Status: Ordered ProAir HFA 90 mcg/inh inhalation [...] Status Inform ant Acid reflux(Confirmed) Active Alcohol abuse(Confirmed) Active Claudication(Confirmed) Active COPD - Chronic obstructive p ulmonary disease(Confirmed) Active Hypertension(Confirmed) Active Osteoporosis(Confirmed) Active PVD - Peripheral vascular disease(Confirmed) Active Tobacco smoking behavior - finding(Confirmed) Active Vital Signs Most recent to oldest [Reference Range]: 1 Height 154.9 cm (03/13/20 11:25 AM) Weight 40.5 kg (03/13/20 11:25 AM) Pulse Rate [55-90 bpm] 64 bpm (03/13/20 11:25 AM) Body Mass Index [18.5-24.99] 16.88 *L* (03/13/20 11:25 AM) Blood Pressure [90-138/55-84 mm Hg] 140/ 80mm Hg *H* (03/13/20 11:25 AM) Blood pressure sites Arm, left (03/13/20 11:25 AM) Weight Obtained Via Patient/family state d (03/13/20 11:25 AM) Social History Social History Type Response Smoking Status Former smoker entered on: 10/28/16 Sex
--- OUTSIDE RECORDS SUMMARY | 2024-05-25 15:15 | XMS_ITS | Continuity of Care Document ---
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 Start Date: 02/03/22 Status: Ordered Boost [facility] 1 carton (chocolate preferred) Dx: Laryngeal carcinoma Boost [facility] 1 carton (chocolate preferred) Dx: Laryngeal carcinoma, See Instructions, # 90 each, Refills 11, Tot. Refills 11, Maintenance, Pls d/c previous oral supplement orders. Begin Boost [facility] 1 carton po (chocolate preferred) tid. [...] tablet, 0 Refills, Maintenance, 01/29/24 14:25:00 EDT, [facility]/pharmacy #[id number], Partial fill upon patient request, 155, cm, 01/16/24 6:10:00 EDT, Height... Start Date: 01/29/24 Status: Ordered Ferrous Sulfate EC Refills 0, Maintenance, 02/03/22 10:55:00 EDT, Partial fill upon patient request if the prescription is for a schedule II opioid drug. Start Date: 02/03/22 Status: Ordered lactulose 10 gm/15 ml oral syrup 15 mL = 10 Gm, By Mouth, Daily, PRN as needed for constipation, # 480 mL, 0 Refills, Maintenance, 02/13/24 15:56:00 EDT, Syrup, [facility]/pharmacy #[id number], Partial fill upon patient request if the prescription is for a schedule II opioid drug., 15 mL By Mouth... Start Date: 02/13/24 Status: Ordered lidocaine-prilocaine 2.5%-2.5% topical cream See Instructions, apply small dollop to [facility] 1 hr prior to appt and cover with plastic, #30 Gm, 1 Refills, Maintenance, 01/29/24 14:24:00 EDT, Cream, [facility]/pharmacy #[id number], Partial fill upon patient request if the prescription is for a schedul... Start Date: 01/29/24 Status: Ordered Lovenox 60 mg/0.6 mL injectable solution 0.5 mL = 50 mg, Subcutaneous Injection, Daily, for 30 days, # 15 mL, 1 Refills, Acute 04/25/24 9:41:00 EDT, 02/25/24 9:41:00 EDT, Solution, [facility], Partial fill upon patient requestif the prescription is for a schedule II opioid sheldon... Start Date: 02/25/24 Stop Date: 04/25/24 Status: Ordered Nicoderm C-Q Clear 21 mg/24 hr transdermal film, extended release 1 patch, Topically, Daily, # 30 patch, 0 Refills, Maintenance, 02/25/24 9:47:00 EDT, Patch, [facility], Partial fill upon patient request if the prescription is for a schedule II opioiddrug., 150, cm, 02/25/24 8:49:00 EDT, Height, 32.5,... Start Date: 02/25/24 Status: Ordered olanzapine 2.5 mg oral tablet 1, tablet, By Mouth, Daily at bedtime, DIRECTED., # 18 tablet, Refills 0, Maintenance, 02/19/24 8:02:00 EDT, Route to Pharmacy Electronically, [id number], 150.8, cm, 02/13/24 15:23:00 EDT, Height, 33.6, kg, 02/13/24 15:23:00 EDT, Dry Weight Start Date: 02/19/24 Status: Ordered ondansetron 8 mg oral tablet 1 tablet = 8 mg, By Mouth, Every 8 hours, PRN as needed for nausea/vomiting, # 30 tablet, 1 Refills, Maintenance, 01/29/24 14:24:00 EDT, Tablet, [facility]/pharmacy #[id number], Partial fill upon patient request if the prescription is for a schedule II opioid drug... Start Date: 01/29/24 Status: Ordered oxyCODONE 5 mg/5 mL oral solution 5 mL = 5 mg, By Mouth, Every 8 hours, # 105 mL, 0 Refills, Maintenance, 02/20/24 21:30:00 EDT, Solution, [facility], Partial fill upon patient request if the prescription is for a schedule II opioid drug., 150.8, cm, 02/20/24 15:38:00... Start Date: 02/20/24 Status: Ordered pantoprazole 40 mg oral delayed release tablet 0 Refills, Maintenance, 12/03/21 8:46:00 EDT Start Date: 12/03/21 Status: Ordered pramipexole 0.125 mg oral tablet [...] tablet, 1 Refills, Maintenance, 01/29/24 14:24:00 EDT, [facility]/pharmacy #[id number], Partial fill upon patient requestif the prescription is for a schedule II opioid sheldon... Start Date: 01/29/24 Status: Ordered rOPINIRole 0.5 mg oral tablet 2 tablet = 1 mg, By Mouth, Daily at bedtime, 0 Refills, Maintenance, 02/03/22 10:56:00 EDT, Partialfill upon patient request if the prescription is for a schedule II opioid drug. Start Date: 02/03/22 Status: Ordered senna 8.8 mg/5 mL oral syrup 10 mL = 17.6 mg, By Mouth, Daily at bedtime, PRN for constipation, # 240 mL, 0 Refills, Maintenance, 02/13/24 15:55:00 EDT, Syrup, [facility]/pharmacy #[id number], Partial fill upon patient request [...] Moderate, # 240 mL, 1 Refills, Maintenance, 02/12/24 13:55:00 EDT, Liquid, [facility]/pharmacy #[id number], Partial fill upon patient request if the prescriptionis for a schedule II opioid drug., 150.8, cm, 02/11... Start Date: 02/12/24 Status: Ordered Tylenol 8 HR Arthritis Pain [...] 06/24/24 9:41:00 EST, 02/25/24 9:41:00 EDT, Tablet, [facility], Partial fill upon patient request if the prescription is for a schedule II opioid drug., 150,... Start Date: 02/25/24 Stop Date: 06/24/24 Status: Ordered Problem List Condition Confirmation Course [...] s/p polypectomy Confirmed Active Underweight Confirmed Active Results Radiology Reports * Exam Date Time Procedure Performing Provider Status 02/24/24 12:56 AM MRI Brain W/O Contrast Brian Jenkins (Verified) Notes: (MRI Brain W/O Contrast) Reason For Exam: Acute stroke with h/o largyngeal Ca , to evaluate for extend of stroke and any brain mets.;Other: RESULT: MRI Brain W/O Contrast MRI Brain W/O Contrast INDICATION / CLINICAL QUESTION: Reason: Other:; Acute stroke with h o largyngeal Ca , to evaluate for extend of stroke and any brain mets.; Clinical Question(s): Tumor Primary; Order Comment: Please see Reference Text for complete list of contraindications Tumor Primary TECHNIQUE: MRI of the brain was performed without contrast utilizing sagittal T1, axial T2, axial SWAN, and axial DWI sequences. COMPARISON: Head CT 02/23/2024. FINDINGS: Image quality is significantly degraded by patient motion. The patient was unable to tolerate continuing the scan to the requested postcontrast portion and declined further imaging. BRAIN and EXTRA-AXIAL SPACES: There is global prominence of the ventricles and sulci reflecting volume loss. There is restricted diffusion in the right frontal lobe predominantly involving the middlefrontal gyrus on the lateral postcentral gyrus, as well as scattered punctate restricted diffusion in the white matter of the left frontal and parietal lobes. There is a region of confluent restricted diffusion in the right parietal lobe extending to the periventricular white matter. These are compatible with acute infarcts. In addition, there is gyriform T1 hyperintensity associated with the right parietal lobe infarct which may reflect early developing cortical laminar necrosis. There is T2 hyperintensity in the areas of infarct with local swelling with no significant mass effect. There is no definite hemorrhage. No midline shift. There is no extra-axial collection. Flow voids are preserved in the dominant intracranial vessels. EXTRACRANIAL SOFT TISSUES: Orbits are unremarkable. Paranasal sinuses and mastoids are unremarkable. BONES: Marrow signal is preserved. IMPRESSION: Exam is significantly degraded by patient motion, and the entire requested pre and post contrast exam could not be performed as the patient declined further imaging. Acute infarcts in the right parietal lobe and involving the left frontal and parietal lobes as described above. Evidence of early cortical laminar necrosis associated with the right parietal lobe infarct. Please note that given the presence of early cortical laminar necrosis, if postcontrast imaging is performed in the immediate to short-term, it is possible that the areas of infarct will show (expected) enhancement. Presence of enhancement related to ischemia may cause limitations in the assessmentfor metastasis at this stage of the evolving infarcts. If attempt at staging is not needed urgentlybased on clinical factors, staging scans could be more accurately as follow up in 4-8 weeks. If done urgently while the infarcts enhance, a follow-up scan would still be needed for more accurate assessment in any areas of evolving ischemia which enhance. WSN: [id number] Ordering Physician: Radha Canela Dictated By: Radha Amato MD Dictated Date/Time: 02/24/24 7:12 am Reviewed By: Radha Amato MD Signed By: Radha Amato MD Signed Date/Time: 02/24/24 7:12 am Transcribed By: RADHA Transcribed Date/Time: 02/24/24 7:03 am * Exam Date Time Procedure Performing Provider Status 02/23/24 11:[address] Head/Brain W+W/O Contrast Naomi Resendiz; Auth (Verified) Notes: (CT Head/Brain W+W/O Contrast) Reason For Exam: Hemiparesis RESULT: CT Head/Brain W+W/O Contrast CT Head/Brain W+W/O Contrast Reason: Hemiparesis; Clinical Question(s): Tumor Secondary; Order Comment: TECHNIQUE: Head CT was performed before and after the administration of intravenous contrast, usingaxial technique and reconstructed in axial and coronal plane. 100 cc of Omnipaque 300 was administered intravenously. Iterative reconstruction techniques are used to optimize dose and image quality. CTDIvol Body: 2.90 mGy, DLP Body: 109 mGy*cm. CTDIvol Head: 47.90 mGy, DLP Head: 1544 mGy*cm. COMPARISON: Noncontrast head CT dated 02/21/2024. FINDINGS: Cardiac Rehab Nurse View Findings, Lines and Tubes: Right internal jugular vein catheter terminates in the lower SVC. BRAIN and EXTRA-AXIAL SPACES: There are hypodensities in bilateral parietal lobes, right more than left, and right occipital lobe, suggestive of acute infarcts without significant change since the prior CT. There is an area of developing hypodensity in the left frontal lobe, which may have been present on prior CT but appears more conspicuous, also consistent with an infarct. Chronic lacunar infarct in the right basal ganglia. There are no areas of abnormal enhancement. No parenchymal hemorrhage, midline shift or mass effect. Patent dural venous sinuses. Grossly normal arterial opacification on this study performed without angiographic technique. Mild prominence of the ventricles and sulci consistent with cortical and cerebellar parenchymal volume loss. Mild periventricular and subcortical low-density white matter changes. No subdural or epidural collections. CALVARIUM, SKULL BASE AND SOFT TISSUES: No fractures or suspicious bony lesions. The paranasal sinuses and mastoid air cells are clear. Visualized orbits and globes are intact. The extracranial soft tissues are unremarkable. IMPRESSION: 1. Evolving acute infarcts in bilateral parietal, right occipital, and left frontal lobes. 2. No evidence of an enhancing intracranial mass. If clinical concern persists, follow-up with MRI should be considered. 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 100 cc of Omnipaque 300 was administered intravenously. Weight-based protocol was performed using automatic exposure control. CTDIvol Body: 2.90 mGy, DLP Body: 109 mGy*cm. CTDIvol Head: 47.90 mGy, DLP Head: 772 mGy*cm. COMPARISON: None. FINDINGS: Cardiac Rehab Nurse view findings, lines and tubes: None. Trachea and airways: Patent without evidence of tracheal or endobronchial lesion. Lungs and pleura: Lungs appear unchanged from the PET CT scan 11/26/2023. Extensive emphysema noted.Cavitary lesion right upper lobe unchanged. Left lung nodules unchanged including dominant nodule 10 mm nodule left lower lobe. Mediastinum and nessa: No mass or hematoma. No mediastinal or hilar lymphadenopathy. No esophageal abnormality. Heart: Heart is normal in size. No pericardial effusion. Aorta: No aortic aneurysm. Pulmonary arteries: Normal caliber. No evidence of pulmonary embolism on this study performed without angiographic technique. Chest wall soft tissues: No acute abnormality. Diaphragm: Intact. Upper abdomen: No significant abnormality. Bones: Left likely chronic left rib fracture. IMPRESSION: Stable chest compared to 11/26/2023 CT scan. No findings of acute infection. WSN: [id number] Ordering Physician: Hamida Elliott Dictated By: Israel Hobbs MD Dictated Date/Time: 02/24/24 0:04 am Reviewed By: Israel Hobbs MD Signed By: Israel Hobbs MD Signed Date/Time: 02/24/24 0:04 am Transcribed By: RADHA Transcribed Date/Time: 02/23/24 11:57 pm * Exam Date Time Procedure Performing Provider Status 02/21/24 4:16 PM Chest 2 Views Frontal and Lat Velvet Abdullahi; Camilla (Verified) Notes: (Chest 2 Views Frontal and Lat) Reason For Exam: Stroke;Other: RESULT: Chest 2 Views Frontal and Lat Chest 2 Views Frontal and Lat Hx of Present Illness: Pt has a hx of CA, brought in from home after daughter found pt to be altered with right sided deficits, slurred speech, diff. with word finding, and incontinent of urine. Pt arrives alert, slow to respond. POC 59 on arrival.; Reason: Other:; Stroke; Clinical Question(s): CHF/ CHF COMPARISON: 01/01/2024 FINDINGS: LINES AND TUBES: Right chest Port-A-Cath in place. LUNGS AND PLEURA: No consolidation. Normal pulmonary vascularity. Nodules better seen on prior cross-sectional imaging. No pleural effusion. No pneumothorax. HEART, MEDIASTINUM AND NESSA: Heart is normal in size. Normal mediastinal and hilar contour. BONES AND SOFT TISSUES: No acute abnormality. IMPRESSION: No evidence of acute abnormality. WSN: [id number] Ordering Physician: Savannah Brito Dictated By: Alonso aMrtinez MD Dictated Date/Time: 02/21/24 4:18 pm Reviewed By: Alonso Martinez MD Signed By: Alonso Martinez MD Signed Date/Time: 02/21/24 4:18 pm Transcribed By: RADHA Transcribed Date/Time: 02/21/24 4:17 pm * Exam Date Time Procedure Performing Provider Status 02/21/24 3:[address] Angio Neck Hyperacute Stroke Dunia Austin; Camilla (Verified) Notes: (CT Angio Neck Hyperacute Stroke) Reason For Exam: Aneurysm, neck vessel(s);Other: RESULT: CT Angio Neck Hyperacute Stroke CT Angio Head Hyperacute Stroke, CT Angio Neck Hyperacute Stroke Reason: Other:; Stroke; Clinical Question(s): Other:; Hematoma Aneurysm / Other: TECHNIQUE: CT angiogram of the head and neck was performed after bolus administration of intravenous contrast. 75 mL of Omnipaque 300 was administered intravenously. Coronal and sagittal MIP reformatted images were obtained. Additional 3-D images were created on a separate workstation under concurrent supervision by the attending radiologist. All stenoses are measured using NASCET criteria. Weight-based protocol using automatic tube modulation was used to optimize exposure parameters. RADIATION DOSE PARAMETERS: CTDIvol Head: 40.34 mGy, DLP Head: 1868 mGy*cm. COMPARISON: Noncontrast CT head performed concurrently. PET scan of 11/26/2023 FINDINGS: CTA OF THE NECK: Arch: There is a three vessel aortic arch. There is moderate atherosclerotic plaque of the aortic arch, but origins of the supra aortic vessels are patent. Right carotid system: The common carotid and cervical internal carotid arteries are patent. There is calcified atherosclerotic plaque at the carotid bifurcation, resulting in mild ICA stenosis (40%) by NASCET criteria. Left carotid system: Proximal cut off of the left cervical ICA just distal to the bifurcation with no opacification of the ICA reconstitution at the level of the supraclinoid segment probably relatedto collateral flow from the ophthalmic artery. There is a left-dominant vertebral artery system. Right vertebral: There is calcified atherosclerotic plaque at the origin with moderate stenosis of the origin. There is no dissection or aneurysm. Left vertebral: There is calcified atherosclerotic plaque at the origin but no significant stenosis. There is no dissection or aneurysm. Other: Soft tissues and bones: There is a large 2.2 x 2.7 x 2.8 cm heterogeneous mildly enhancing mass correlating with the abnormality hat by PET scan of 11/26/2023 most compatible with a metastatic lymph node. 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 This is similar to prior examination. Subcentimeter thyroid nodularity, not requiring follow-up given the smallsize. 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 Since the prior CT scan from prior PET of 11/26/2023, there is a 5 mm parenchymal nodule in the right upper lobe anterolaterally (image 21 of series 305). Severe emphysematous changes of the apices. Milddegenerative changes of the cervical spine are noted, without acute osseous abnormality. CTA OF THE HEAD: Anterior circulation: There is atherosclerotic plaque of the bilateral carotid siphons with moderate to severe stenosis of the bilateral supraclinoid segments. Cut off of the left cervical ICA just distal to the bifurcation with at the supraclinoid segment due to collateral flow. The MCA and HAMILTON branches are opacified bilaterally. Posterior circulation: Bilateral intracranial vertebral arteries, the basilar artery, and bilateralsuperior cerebellar and posterior cerebral branches are patent. There is no significant stenosis, proximal cutoff, aneurysm, or vascular malformation. There is linear density within the V4 segment ofthe left vertebral artery that may represent a fenestration. Veins: Major dural venous sinuses are patent. Other: Soft tissues and bones: No midline shift or effacement of the basal cisterns. No space-occupying hemorrhage. There is an evolving right occipital infarct. Orbits are unremarkable. No significant opacification in the paranasal sinuses or mastoid air cells. 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 The impression above was relayed to Savannah Brito DO by Dr. Tacos Sánchez via [employer] with acknowledgement received on 02/21/2024 at 3:46 PM. Patent [place] of [place]. 40% stenosis of the proximal right internal carotid artery by NASCET criteria. Epiglottic mass extending to the left of the midline into the piriform sinus which appears effaced and into the preepiglottic fat as seen on prior PET scan most compatible with patient's known neoplastic process. Left level 2 lymphadenopathy, similar to prior PET scan. Newly apparent 5 mm parenchymal nodule in the right upper lobe anterolaterally. I have personally reviewed the images and I agree with this report. WSN: [id number] Ordering Physician: Savannah Brito Dictated By: Tacos Sánchez MD Dictated Date/Time: 02/21/24 5:24 pm Reviewed By: Sarah Rascon MD Signed By: Sarah Rascon MD Signed Date/Time: 02/21/24 5:29 pm Transcribed By: RADHA Transcribed Date/Time: 02/21/24 4:22 pm * Exam Date Time Procedure Performing Provider Status 02/21/24 3:[address] Angio Head Hyperacute Stroke Dunia Austin; Camilla (Verified) Notes: (CT Angio Head Hyperacute Stroke) Reason For Exam: Stroke;Other: RESULT: CT Angio Head Hyperacute Stroke CT Angio Head Hyperacute Stroke, CT Angio Neck Hyperacute Stroke Reason: Other:; Stroke; Clinical Question(s): Other:; Hematoma Aneurysm / Other: TECHNIQUE: CT angiogram of the head and neck was performed after bolus administration of intravenous contrast. 75 mL of Omnipaque 300 was administered intravenously. Coronal and sagittal MIP reformatted images were obtained. Additional 3-D images were created on a separate workstation under concurrent supervision by the attending radiologist. All stenoses are measured using NASCET criteria. Weight-based protocol using automatic tube modulation was used to optimize exposure parameters. RADIATION DOSE PARAMETERS: CTDIvol Head: 40.34 mGy, DLP Head: 1868 mGy*cm. COMPARISON: Noncontrast CT head performed concurrently. PET scan of 11/26/2023 FINDINGS: CTA OF THE NECK: Arch: There is a three vessel aortic arch. There is moderate atherosclerotic plaque of the aortic arch, but origins of the supra aortic vessels are patent. Right carotid system: The common carotid and cervical internal carotid arteries are patent. There is calcified atherosclerotic plaque at the carotid bifurcation, resulting in mild ICA stenosis (40%) by NASCET criteria. Left carotid system: Proximal cut off of the left cervical ICA just distal to the bifurcation with no opacification of the ICA reconstitution at the level of the supraclinoid segment probably relatedto collateral flow from the ophthalmic artery. There is a left-dominant vertebral artery system. Right vertebral: There is calcified atherosclerotic plaque at the origin with moderate stenosis of the origin. There is no dissection or aneurysm. Left vertebral: There is calcified atherosclerotic plaque at the origin but no significant stenosis. There is no dissection or aneurysm. Other: Soft tissues and bones: There is a large 2.2 x 2.7 x 2.8 cm heterogeneous mildly enhancing mass correlating with the abnormality hat by PET scan of 11/26/2023 most compatible with a metastatic lymph node. 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 This is similar to prior examination. Subcentimeter thyroid nodularity, not requiring follow-up given the smallsize. 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 Since the prior CT scan from prior PET of 11/26/2023, there is a 5 mm parenchymal nodule in the right upper lobe anterolaterally (image 21 of series 305). Severe emphysematous changes of the apices. Milddegenerative changes of the cervical spine are noted, without acute osseous abnormality. CTA OF THE HEAD: Anterior circulation: There is atherosclerotic plaque of the bilateral carotid siphons with moderate to severe stenosis of the bilateral supraclinoid segments. Cut off of the left cervical ICA just distal to the bifurcation with at the supraclinoid segment due to collateral flow. The MCA and HAMILTON branches are opacified bilaterally. Posterior circulation: Bilateral intracranial vertebral arteries, the basilar artery, and bilateralsuperior cerebellar and posterior cerebral branches are patent. There is no significant stenosis, proximal cutoff, aneurysm, or vascular malformation. There is linear density within the V4 segment ofthe left vertebral artery that may represent a fenestration. Veins: Major dural venous sinuses are patent. Other: Soft tissues and bones: No midline shift or effacement of the basal cisterns. No space-occupying hemorrhage. There is an evolving right occipital infarct. Orbits are unremarkable. No significant opacification in the paranasal sinuses or mastoid air cells. 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 The impression above was relayed to Savannah Brito DO by Dr. Tacos Sánchez via [employer] with acknowledgement received on 02/21/2024 at 3:46 PM. Patent [place] of [place]. 40% stenosis of the proximal right internal carotid artery by NASCET criteria. Epiglottic mass extending to the left of the midline into the piriform sinus which appears effaced and into the preepiglottic fat as seen on prior PET scan most compatible with patient's known neoplastic process. Left level 2 lymphadenopathy, similar to prior PET scan. Newly apparent 5 mm parenchymal nodule in the right upper lobe anterolaterally. I have personally reviewed the images and I agree with this report. WSN: [id number] Ordering Physician: Savannah Brito Dictated By: Tacos Sánchez MD Dictated Date/Time: 02/21/24 5:24 pm Reviewed By: Sarah Rascon MD Signed By: Sarah Rascon MD Signed Date/Time: 02/21/24 5:29 pm Transcribed By: RADHA Transcribed Date/Time: 02/21/24 4:22 pm * Exam Date Time Procedure Performing Provider Status 02/21/24 3:[address] Head-Hyper Acute Stroke Dunia Finch; Camilla (Verified) Notes: (CT Head-Hyper Acute Stroke) Reason For Exam: Neuro deficit, acute, stroke suspected;Other: RESULT: CT Head-Hyper Acute Stroke CT Head-Hyper Acute Stroke INDICATION: Reason: Other:; Neuro deficit, acute, stroke suspected; Clinical Question(s): Other:; Hematoma Infarction TECHNIQUE: Noncontrast head CT using axial technique and reconstructed in axial and coronal planes.Iterative reconstruction techniques are used to optimize dose and image quality. COMPARISON: No relevant FINDINGS: The visualized sinuses are free from disease. The ventricular system is within normal limits for size. There is an area of low-attenuation withinthe right occipital lobe with effacement of the sulci. A subtle area of low-attenuation within the right parietal lobe is also seen. There is a lacunar infarction within the right subinsular cortex. No hyperdense vessel sign is seen. There is no intracranial hemorrhage, mass effect, or midline shift. No intra- or extra-axial fluid collections are identified. The osseous structures are unremarkable. IMPRESSION: Acute evolving infarct within the right occipital lobe with a probable area of ischemia in the right parietal lobe. An actionable message ([place]) has been communicated via the [employer]otob[employer] system on 02/21/2024 3:32 PM, Message ID [id number]. WSN: [id number] Ordering Physician: Savannah Brito Dictated By: Sabrina Flores MD Dictated Date/Time: 02/21/24 3:33 pm Reviewed By: Sabrina Flores MD Signed By: Sabrina Flores MD Signed Date/Time: 02/21/24 3:33 pm Transcribed By: RADHA Transcribed Date/Time: 02/21/24 3:30 pm Vital Signs Most recent to oldest [Reference Range]: 1 2 3 Height 150 cm (02/25/24 12:05 PM) 150 cm (02/25/24 8:49 AM) 150 cm (02/24/24 3:26 PM) Weight 32.5 kg (02/22/24 8:34 AM) Oxygen Saturation [94-100 %] 100 % (02/25/24 12:05 PM) 100 % (02/25/24 8:49 AM) 97 % (02/25/24 2:00 AM) Pulse Rate [55-90 bpm] 70 bpm (02/25/24 12:05 PM) 66 bpm (02/25/24 8:49 AM) 60 bpm (02/25/24 2:00 AM) Body Mass Index [18.5-24.99 kg/m2] 14.44 kg/m2 *L* (02/22/24 8:34 AM) Blood Pressure [90-138/55-84 mm Hg] 123/70mm Hg (02/25/24 12:05 PM) 152/75mm Hg *H* (02/25/24 8:49 AM) 106/59mm Hg (02/25/24 2:00 AM) Respiratory Rate [16-30 br/min] 16 br/min (02/25/24 12:05 PM) 16 br/min (02/25/24 8:49 AM) 18 br/min (02/25/24 2:00 AM) Temperature [96.8-100.4 DegF] 98.1 DegF (02/25/24 12:05 PM) 97.7 DegF (02/25/24 8:49 AM) 97.2 DegF (02/25/24 2:00 AM) Mode of Delivery (Oxygen) Room air (02/25/24 12:05 PM) Room air (02/25/24 8:49 AM) Room air (02/25/24 2:00 AM) Blood pressure sites Arm, right (02/25/24 12:05 PM) Arm, left (02/25/24 8:49 AM) Arm, left (02/25/24 2:00 AM) Temperature Route Oral (02/25/24 12:05 PM) Axillary (02/25/24 8:49 AM) Temporal (02/25/24 2:00 AM) Dry Weight 32.5 kg (02/22/24 8:34 AM) Weight Obtained Via Bed scale (02/22/24 8:34 AM) Social History Social History Type Response Smoking Status 10 or more cigarette s (1/2 pack or more)/day in last 30 days; Interested in cessation: No; Patient wants NRT during admission No entered on: 02/20/24 Sex Admission evaluation note * Angel MENDOZA, Chiki Rubin: PERFORM Event Display: Admission Note Authored Date: [id number] Patient: ??SILVIA, KIM ? Age:??64 Years?Sex:??Female?:??1960?? Chief Complaint/Reason for Consultation From home, LKW 17:00 02/19. Pt is baseline CAOx4, ambulatory. Pt found ??by family on couch, incontinent of urine, right arm drift and aphasia. Not on blood thinners. Hx of CA< currently getting chemo and radiation tx. History of Present Illness Ms. Vega is a 64-year-old lady with a PMH of COPD, fibromyalgia, PVD s/p fem???fem bypass, alcohol use disorder, smoker, laryngeal carcinoma on chemotherapy and radiation therapy who presents to the ED with altered mentation. ?? Patient was found by family on the couch incontinent of urine.?? Her last known well was 5 PM on 02/19.?? EMS was found and she was found to have right arm drift and aphasia with drowsiness. Currently denies chest pain, abdominal pain, N/V/D, fever, chills, dyspnea. ?? On arrival to the ER she was following some commands, dysarthric with expressive aphasia, had a right facial droop with right arm weakness and ataxia, right hemianopsia, right lower extremity weakness.?? POC was 59 for which she was given dextrose.?? Other labs showed unremarkable CBC with anemia, unremarkable BMP, negative U tox, unremarkable urinalysis.?? Chest x-ray unremarkable.?? CT head showed bihemispheric infarcts with right inferior MCA acute and subacute, left hyperacute posterior periventricular infarct.?? CTA with left cervical ICA proximal occlusion of undetermined age.?? She was out of window for interventions. ?? Review of Systems All systems reviewed and negative except as indicated in HPI. Objective Vital Signs?? Temperature: 98.4 DegF (02/22/24 04:09:00) Temperature Route: Oral (02/22/24 04:09:00) Pulse Rate: 58 bpm (02/22/24 04:09:00) Respiratory Rate:??14 br/min??Low (02/22/24 04:09:00) Systolic Blood Pressure: 129 mm Hg (02/22/24 04:09:00) Diastolic Blood Pressure: 57 mm Hg (02/22/24 04:09:00) Blood pressure sites: Arm, left (02/22/24 04:09:00) Mean Arterial Pressure: 81 mm Hg (02/22/24 04:09:00) Pulse Pressure: 72 mm Hg (02/22/24 04:09:00) Oxygen Saturation: 96 % (02/22/24 04:09:00) Mode of Delivery (Oxygen): Room air (02/22/24 02:38:00) Early Warning Score: 0 (02/22/24 05:27:17) ? Intake/Output? No Data Available ? Physical Exam Constitutional: Alert, in no acute distress. Cachectic. Head EENT: Extraocular muscle movement intact.??Moist mucous membranes.?? Neck: Supple. No JVD. Respiratory: Clear to auscultation. No wheezing or crackles. No use of accessory muscles. Cardiovascular: Right chest port. S1S2 regular. No murmurs, rubs or gallops. Gastrointestinal: Abdomen soft, non-tender, non-distended. Normal bowel sounds. Genitourinary: No CVA tenderness. Extremities: No lower extremity pitting??edema. No cyanosis or clubbing. Neurologic: AAOx3, Speech normal. Sensation intact.??Power??4/5??RUE,??RLE,??5/5 LUE/LLE. ?? Assessment/Plan 64-year-old lady with a PMH of COPD, fibromyalgia, PVD s/p fem???fem bypass, alcohol use disorder, smoker, laryngeal carcinoma on chemotherapy and radiation therapy who presents to the ED with altered mentation. ?? Acute stroke due to ischemia (I63.9):? -q4hr neuro checks - check D Dimer, lipid panel, A1C - depending on results of D dimer would check in with Onc/Rad regarding safety of initiating therapeutic Anticoagulation with Lovenox for this pt??(Dr. Lorenzana Hematology has no contraindication, but has not seen the pt since December, Defer to Onc/Rad. Consult in AM.) -permissive hypertension - Maintain HOB as flat as pt will tolerate (without dyspnea)??to allow for improved cerebral perfusion.?? -IVF bolus x 1 L followed by maint IV inf 100 ml/hr to improve perfusion. - statin for goal LDL<70 ??-passed swallow eval, started diet ??-MRI brain without ALBINA,??routine ??-telemetry for rhythm monitoring ??-Transthoracic echo,??no bubble study ??-DVT prophylaxis with SC lovenox ??-PM&R consulted ??-pt stroke education - Neuro consulted, appreciate recs ?Antithrombotic Therapy by End of Hospital Day 2:??Antithrombotic ordered ?? Fibromyalgia (M79.7):? - PRN pain control ?? COPD - Chronic obstructive pulmonary disease/Asthma (J44.9):? Duonebs PRN ?? Code status: full, confirmed with patient DVT ppx:??lovenox Diet: regular Dispo: floors ?? Total Visit Time: I personally spent a total of 80 minutes, including both zbli-hy-tcnv and dap-cjft-mk-face time on the date of the encounter, addressing the above diagnoses. Activities performed in this time include chart review, obtaining / reviewing history, performing amedically necessary evaluation, documentation and counseling. ?? Chiki Ortiz MD Elementary Education Tutor 7p-7a After 7 am please contact day time provider for questions/consult updates. ? Histories Past Medical History/Problem List Active Problems(16) Acid reflux Alcohol abuse, 1-7 beers daily, documented 6-12 beers daily in chart Ankle pain, left Chest pain Chronic Helicobacter pylori gastritis Claudication COPD - Chronic obstructive pulmonary disease/Asthma Fibromyalgia Hypertension Jaw clicking Osteoporosis PVD - Peripheral vascular disease Tachycardia Tobacco smoking behavior - finding, 1/2 ppd up to 2 ppdX51 years Tubular adenoma of colon, s/p polypectomy Underweight ? Past Surgical History Right ax-fem Bypass: 06/03/20 Reduction and internal fixation, left calcaneus avulsion fracture: 10/28/16 Open reduction, internal fixation of bimalleolar fracture, left ankle, using a VariAx plate on the distal fibula from the [employer] and 2 cannulated titanium screws to fix the left medial malleolus: 12/07/11 Colonoscopy w/polypectomy: 2006 PFT - Pulmonary function tests: 11/26/03 Appendectomy Tonsillectomy and adenoidectomy ? Social History Alcohol Details:??Use: Current. ??Frequency: Daily. ??Type: Beer. ??Other: 1-7 beers daily. Tobacco Details:??Use: 10 or more cigarettes (1/2 pack or more)/day in last 30 days. ??Interested in cessation: No. ??No Details:??Use: 10 or more cigarettes (1/2 pack or more)/day in last 30 days. ??Interested in cessation: No. ??No Details:??Use: 10 or more cigarettes (1/2 pack or more)/day in last 30 days. ??Type: Cigarettes. Details:??Current every day smoker ? Family History No Family History documented. ? Medications Home Medications Acetaminophen (Tylenol 8 HR Arthritis Pain 650 mg oral tablet, extended release)?2?tab(s)?1,300?Milligram?By Mouth?Every 8 hours?as needed?as needed for pain Albuterol (ProAir HFA 90 mcg/inh inhalation aerosol with adapter)?2?puff(s)?Inhalation?4 times a day?as needed?as needed for wheezing Albuterol (albuterol 0.083% inhalation solution)?3?Milliliter?2.5?Milligram?Inhalation?Every 6 hours?as needed?for wheezing Budesonide-Formoterol (Symbicort 80mcg/4.5mcg Inhaler)?2?puff(s)?Inhalation?2 times a day Clopidogrel (Plavix 75 mg oral tablet)?75?Milligram?1?tablet?By Mouth?Daily?for 30?Days Clopidogrel (clopidogrel 75 mg oral tablet)?1?tablet?By Mouth?Daily Dexamethasone (dexamethasone 4 mg oral tablet)?See Instructions?1 tab (4mg) By Mouth once a day for 3 days as directed after chemo, with food Durable Medical Equipment (Cane)?See Instructions?1 each Lactulose (lactulose 10 gm/15 ml oral syrup)?15?Milliliter?10?gram?By Mouth?Daily?as needed?as needed for constipation Lidocaine/Prilocaine Topical (lidocaine-prilocaine 2.5%-2.5% topical cream)?See Instructions?apply small dollop to portacat site 1 hr prior to appt and cover with plastic Miscellaneous Rx (Boost VHC 1 carton (chocolate preferred) Dx: ??Laryngeal carcinoma)?See Instructions?Pls d/c previous oral supplement orders. ??Begin Boost VHC 1 carton po (chocolate preferred) tid. Ht: ??150.8cmWt: ??31.5kgBMI: ??13.8 Olanzapine (olanzapine 2.5 mg oral tablet)?1?tablet?By Mouth?Daily at bedtime? DIRECTED. Ondansetron (ondansetron 8 mg oral tablet)?1?tab(s)?8?Milligram?By Mouth?Every 8 hours?as needed?as needed for nausea/vomiting Oxycodone (oxyCODONE 5 mg/5 mL oral solution)?5?Milliliter?5?Milligram?By Mouth?Every 8 hours Pramipexole (pramipexole 0.125 mg oral tablet)?TAKE 1 TABLET BY MOUTH AT BEDTIME PROCHLORperazine (prochlorperazine 10 mg oral tablet)?1?tab(s)?10?Milligram?By Mouth?Every 6 hours?as needed?nausea/vomiting?may cause drowsiness Ropinirole (rOPINIRole 0.5 mg oral tablet)?2?tab(s)?1?Milligram?By Mouth?Daily atbedtime Senna (senna 8.8 mg/5 mL oral syrup)?10?Milliliter?17.6?Milligram?By Mouth?Daily at bedtime?as needed?for constipation Tramadol (traMADol 5 mg/mL oral liquid)?10?Milliliter?50?Milligram?By Mouth?Every6 hours?as needed?Pain , Moderate ? Inpatient Medications Medications (16) Active SCHEDULED: (7) Aspirin 81 mg EC Tablet (aspirin 81 mg oral delayed release tablet) ??81 mg, By Mouth, Daily Clopidogrel 75 mg Tablet (clopidogrel 75 mg oral tablet) ??75 mg, By Mouth, Daily Heparin 5000 units/mL Inj (1 mL) (Heparin Inj) ??5,000 units 1 mL, Subcutaneous Injection, 3 times a day NaCl 0.9% Flush 3ml (NaCL 0.9% Flush) ??3 mL, IV Push, Every 8 hours Olanzapine 2.5 mg Tablet (olanzapine 2.5 mg oral tablet) ??2.5 mg, By Mouth, Daily at bedtime Pramipexole 0.25 mg Tablet (pramipexole 0.25 mg oral tablet) ??0.125 mg, By Mouth, Daily at bedtime Ropinirole 1 mg Tablet (rOPINIRole 1 mg oral tablet) ??1 mg, By Mouth, Daily at bedtime CONTINUOUS: (1) NaCL 0.9% (1000 mL) Cont IV 1,000 mL (0.9% NaCL 1,000 mL) ??1,000 mL, IV Infusion, 100 mL/hr PRN: (8) Acetaminophen 325 mg Tablet (Acetaminophen Tablet) ??650 mg, By Mouth, Every 4 hours Dextromethorphan-Guaifenesin 20 mg-200 mg/10 mL Liqu UD (Robitussin DM Liquid) ??10 mL, By Mouth, Every 4 hours Docusate Sodium 100 mg Capsule (Docusate Sodium Capsule) ??100 mg 1 capsule, By Mouth, 2 times a day Melatonin 3 mg Tablet (Melatonin Tablet) ??3 mg, By Mouth, Daily at bedtime NaCl 0.9% Flush 3ml (NaCL 0.9% Flush) ??3 mL, IV Push, Every 8 hours Polyethylene Glycol 17 Gm Powder (MiraLax Powder) ??17 Gm 1 pack/packet, By Mouth, Daily Senna Tablet ??8.6 mg 1 tablet, By Mouth, 2 times a day Simethicone 80 mg Chewable Tablet (Simethicone Tablet) ??80 mg, Chew, 3 times a day ? Results Recent Labs BLOOD BANK Blood Type O Positive ()?? 02/21/2024 15:18 Antibody Screen Negative ()?? 02/21/2024 15:18 ?? BLOOD COUNT & DIFF WBC 4.6 k/mm3 ()?? 02/22/2024 04:42 RBC 4.31 m/mm3 ()?? 02/22/2024 04:42 Hgb 10.9 Gm/dL (Low)?? 02/22/2024 04:42 Hct 35.2 % (Low)?? 02/22/2024 04:42 MCV 81.7 femtoliters ()?? 02/22/2024 04:42 MCH 25.3 pg (Low)?? 02/22/2024 04:42 MCHC 31.0 g/dL (Low)?? 02/22/2024 04:42 Platelet Count 189 k/mm3 ()?? 02/22/2024 04:42 RDW-SD 53.4 femtoliters (High)?? 02/22/2024 04:42 MPV 8.6 femtoliters (Low)?? 02/22/2024 04:42 Nucleated RBC (Automated) 0.0 #/100 WBC'S ()?? 02/22/2024 04:42 Abs. NRBC 0.0 k/mm3 ()?? 02/22/2024 04:42 Abs. Neut 3.4 k/mm3 ()?? 02/22/2024 04:42 Abs. Lymph 0.5 k/mm3 (Low)?? 02/22/2024 04:42 Abs. Overton 0.6 k/mm3 ()?? 02/22/2024 04:42 Abs. Eo 0.0 k/mm3 ()?? 02/22/2024 04:42 Abs. Baso 0.0 k/mm3 ()?? 02/22/2024 04:42 Neut % 73.9 % ()?? 02/22/2024 04:42 Lymph % 11.3 % (Low)?? 02/22/2024 04:42 [place] % 13.3 % (High)?? 02/22/2024 04:42 Eos % 0.9 % ()?? 02/22/2024 04:42 Baso % 0.2 % ()?? 02/22/2024 04:42 Imm Gran 0.4 % ()?? 02/22/2024 04:42 Abs. Imm Gran 0.0 k/mm3 ()?? 02/22/2024 04:42 ?? CARDIAC High Sensitivity Troponin (HSTnT) 19 ng/L (High)?? 02/21/2024 17:16 ?? CHEM GENERAL Sodium 142 mmol/L ()?? 02/21/2024 17:16 Potassium 4.1 mmol/L ()?? 02/21/2024 17:16 Chloride 108 mmol/L (High)?? 02/21/2024 17:16 Bicarbonate Level 21 mmol/L (Low)?? 02/21/2024 17:16 Anion Gap 13 ()?? 02/21/2024 17:16 Glucose Level 73 mg/dL ()?? 02/21/2024 17:16 Glucose, POC 70 mg/dL ()?? 02/21/2024 19:28 BUN 12 mg/dL ()?? 02/21/2024 17:16 Creatinine-Blood 0.40 mg/dL (Low)?? 02/21/2024 17:16 Estimated GFR Creatinine 112 ML/MIN/1.73 M2 ()?? 02/21/2024 17:16 Calcium 8.2 mg/dL (Low)?? 02/21/2024 17:16 AST (SGOT) 19 units/L ()?? 02/21/2024 17:16 ?? COAG INR 1.0 ()?? 02/21/2024 17:16 Protime (PT) 10.4 seconds ()?? 02/21/2024 17:16 APTT 24.7 seconds ()?? 02/21/2024 17:16 D-Dimer 1.03 mg/L FEU (High)?? 02/21/2024 17:16 ?? TOXICOLOGY/TDM Barbiturate Screen, Urine NONE DETECTED ()?? 02/21/2024 19:40 Cannabinoid Screen, Urine NONE DETECTED ()?? 02/21/2024 19:40 Cocaine Metabolite Screen, Urine NONE DETECTED ()?? 02/21/2024 19:40 Benzodiazepine Screen, Urine NONE DETECTED ()?? 02/21/2024 19:40 Amphetamine Screen, Urine NONE DETECTED ()?? 02/21/2024 19:40 Opiate Screen, Urine NONE DETECTED ()?? 02/21/2024 19:40 ?? UA/URINALYSIS Appear/Color, Urine COLORLESS ()?? 02/21/2024 19:40 Specific [place], Urine 1.043 (High)?? 02/21/2024 19:40 pH, Urine 7.5 ()?? 02/21/2024 19:40 Albumin, Urine NEGATIVE ()?? 02/21/2024 19:40 Glucose, Urine 1+ (Abnormal)?? 02/21/2024 19:40 Ketones, Urine NEGATIVE ()?? 02/21/2024 19:40 Bilirubin, Urine NEGATIVE ()?? 02/21/2024 19:40 Hemoglobin, Urine NEGATIVE ()?? 02/21/2024 19:40 Nitrite, Urine NEGATIVE ()?? 02/21/2024 19:40 Leukocyte, Urine NEGATIVE ()?? 02/21/2024 19:40 Urobilinogen NORMAL mg/dL ()?? 02/21/2024 19:40 WBC's, Urine NONE SEEN /HPF ()?? 02/21/2024 19:40 RBC's, Urine 2 /HPF ()?? 02/21/2024 19:40 Squamous Epith 1 /HPF ()?? 02/21/2024 19:40 Amorphous Crystals SLIGHT /HPF ()?? 02/21/2024 19:40 ? Blood Glucose Trend Glucose Level: 73 mg/dL (02/21/24 17:16:00) Glucose, POC: 70 mg/dL (02/21/24 19:28:00) Glucose, POC: 70 mg/dL (02/21/24 17:00:00) Glucose, POC:??59 mg/dL??Low (02/21/24 15:08:00) ? CBC, CBC w/Diff?? CBC?? Differential?? WBC: 4.6 k/mm3 (04:42) Abs. Neut: 3.4 k/mm3 (04:42) RBC: 4.31 m/mm3 (04:42) Abs. Lymph:??0.5 k/mm3??Low (04:42) Hct:??35.2 %??Low (04:42) Abs. Overton: 0.6 k/mm3 (04:42) RDW-SD:??53.4 femtoliters??High (04:42) Abs. Eo: 0 k/mm3 (04:42) Nucleated RBC (Automated): 0 #/100 WBC'S (04:42) Abs. Baso: 0 k/mm3 (04:42) Abs. NRBC: 0 k/mm3 (04:42) Neut %: 73.9 % (04:42) ?? Lymph %:??11.3 %??Low (04:42) ?? Overton %:??13.3 %??High (04:42) ?? Eos %: 0.9 % (04:42) ?? Baso %: 0.2 % (04:42) ?? Imm Gran: 0.4 % (04:42) ?? Abs. Imm Gran: 0 k/mm3 (04:42) ? LFT AST (SGOT): 19 units/L (17:16) Protime (PT): 10.4 seconds (17:16) ?? Urinalysis Albumin, Urine: NEGATIVE (19:40) Amorphous Crystals: SLIGHT (19:40) Appear/Color, Urine: COLORLESS (19:40) Bilirubin, Urine: NEGATIVE (19:40) Glucose, Urine: 1+ Abnormal (19:40) Hemoglobin, Urine: NEGATIVE (19:40) Hold Urine Culture: Testing available 48 hours from time of collection. (19:40) Ketones, Urine: NEGATIVE (19:40) Leukocyte, Urine: NEGATIVE (19:40) Nitrite, Urine: NEGATIVE (19:40) pH, Urine: 7.5 (19:40) RBC's, Urine: 2 /HPF (19:40) Specific [place], Urine:??1.043??High (19:40) Squamous Epith: 1 /HPF (19:40) Urobilinogen: NORMAL (19:40) WBC's, Urine: NONE SEEN (19:40) ? Blood Gases?? No qualifying data available. ? EKG study * Event Display: ECG 12-Lead Authored Date: Please click on pdf link to open report * Event Display: ECG 12-Lead Authored Date: Ventricular Rate: 61 BPM Atrial Rate: 61 BPM P-R Interval: 84 ms QRS Duration: 56 ms Q-T Interval: 426 ms QTC Calculation(Bazett): 428 ms R [place]: 144 degrees T [place]: 146 degrees Sinus rhythm with short AR Low voltage QRS Left posterior fascicular block Abnormal ECG Confirmed by ELIJAH PAREDES ([id number]) on 02/22/2024 7:44:15 AM [place]: ELIJAH PAREDES Heart * Event Display: Echocardiogram - Complete Authored Date: Transthoracic Echocardiography Report (TTE) Patient Demographics Patient Name KIM VEGA Date of Study 02/22/2024 Corporate Gender Female Facility Race Ethnicity Date of 1960 Height: 59.06 inches Age 64 year(s) Weight: 68.35 pounds Accession Number [id number] BSA: 1.17 m2 Room Number [id number] BMI: 13.78 kg/m2 Referring Physician Not on Staff Interpreting Mitchel Casarez MD Referring MD Physician Angel Rubin MD [employer] Supervisor Wall[employer] RDCS Marisol Indications CVA. Clinical History Asthma. COPD PVD Tobacco use. HTN Alcohol abuse. Study Data Type of Study TTE procedure:Echo Complete-Doppler, Colorflow, M-Mode. Study Date02/22/2024 Start Time: 11:26 AM Study Location: [facility] [place] Study Status: Bedside Patient Status: Routine Technical Quality: Technically difficult due to restricted mobility. Blood Pressure:151/79 mmHg EKG: Sinus bradycardia HR: 54 bpm Allergies - Aspirin. - Doxycycline. 2D Measurements LV Diastolic Dimension: 3.58 cm LV Systolic Dimension: 2.2 cm LV Septum Diastolic: 0.96 cm LV PW Diastolic: 0.9 cm AO Root Dimension: 2.4 cm LA Dimension: 3 cm LA ESV (BP):37.25 ml LVOT Stroke Volume: 57.27 ml LA ESV Index: 32 ml/m2 Stroke Volume Index48.95 ml/m2 LVOT: 1.97 cm Cardiac Index:2.64 l/min/m2 Ascending Aorta:2.8 cm Doppler Measurements AV Peak Velocity: 115 cm/s MV Peak E-Wave: 79 cm/s AV Peak Gradient: 5.29 mmHg MV Peak A-Wave: 56.2 cm/s MV E/A Ratio: 1.41 LVOT Peak Velocity: 60.9 cm/s LVOT VTI18.8 cm MV Deceleration Time: 215 msec TR Velocity:218 cm/s TR Gradient:19.01 mmHg PV Peak Velocity: 87 cm/s E' Septal Velocity: 7.94 cm/s PV Peak Gradient: 3.03 mmHg E' Lateral Velocity: 10 cm/s E/Med E':[id number] E/Lat E':7.9 Cardiac Anatomy Left Ventricle/Interventricular Septum The left ventricular size is normal. Left ventricular wall thickness is normal. The LV systolic function is normal . The left ventricular ejection fraction is 60-65 %. There are no regional wall motion abnormalities. Normal diastolic function. Left Atrium/Interatrial Septum The left atrial size is at the upper limit of normal. Aortic Valve The aortic valve is trileaflet . There is no aortic stenosis. There is no aortic regurgitation. Mitral Valve There is moderate mitral annular calcification. The mitral valve appears mildly thickened. The mitral valve opening is normal. There is trivial mitral regurgitation. Aorta The aortic root is normal in size. The ascending aorta is not well visualized. Right Ventricle The right ventricle is normal in size and function. Right Atrium The right atrium is normal in size. Pulmonic Valve The pulmonic valve appears grossly normal. Tricuspid Valve The tricuspid valve appears normal . There is trace tricuspid valve regurgitation. Pumonary Artery The pulmonary artery systolic pressure estimation is within normal limits. Venous Structures The inferior vena cava appears normal. Pericardium/Extracardiac There is no significant pericardial effusion. Summary The left ventricular size is normal. Left ventricular wall thickness is normal. The LV systolic function is normal . The left ventricular ejection fraction is 60-65 %. There are no regional wall motion abnormalities. Normal diastolic function. There is moderate mitral annular calcification. The mitral valve appears mildly thickened. The mitral valve opening is normal. There is trivial mitral regurgitation. The right ventricle is normal in size and function. Comparison No prior study available for comparison. Signature * Event Display: Echocardiogram - Complete Authored Date: Cardiology * Event Display: Cardiac Rhythm Strips Authored Date: Hospital Progress note * Joann Herron RN: PERFORM, SIGN, VERIFY Event Display: Progress Psychiatric Authored Date: Patient: KIM VEGA Age: 64 years Sex: Female : 1960 Associated Diagnoses: None Author: Joann Herron RN Findings Problem Related to Alteration in Neurological : Alteration in Neurological Function/new 02/24/2024 8:00 EDT Alteration in Neuro status Related to Acute Stroke (CVA) Goals & Outcomes, Neurological Lab studies/diagnostic tests within pt specific limits, Pt is safe with transfers & activities, Pt will be discharged without infection, Pt will be hemodynamically stable, Pt will be Neurologically stable, Pt will become pain free with appropriate intervention, Pt will maintain intact skin integrity, Pt will remain free from injury, Pt will resume/maintain ad equate cardiac output, Pt will state importance of adhering to medication regime, Pt/caregiver willreceive psychosocial support as needed, Pt/caregiver will state understanding of rehab plan, Pt/caregiver will state strategies to reduce risk factors, Pt/caregiver will state understanding aspiration precautions, Pt/caregiver will state understanding dietary modifications, Pt/caregiver will state understanding of disease process, Pt/caregiver will state understanding of plan/goals of care, Pt/caregiver will state understanding of the D/C plan, Resolved problem, Goals/Outcomes met, Pt will demonstrate safe transfers, Pt will demonstrate use of adaptive equipment, Pt will be without signs of aspiration, Pt/caregiver will be able to describe s/s of TIA/Stroke Interventions, Neurological Assess/monitor neurologic status, Assess/monitor VS per unit standards & prn Goals/Interventions, Neurological Yes Neurological, Problem Start 02/22/2024 9:00 Reviewed plan with, Neurological Patient Patient Progression, Neurological Pt progressing according to plan . Nursing Data Neurological Data. : Neurological Data. 02/24/2024 9:46 EDT Neurological Symptoms Unsteady gait/Ataxia, Weakness or loss of muscle strength Level of Consciousness Full Consciousness Orientated to person, place, time Person, Place, Time, Event Facial Symmetry Intact Characteristics of Speech Clear and normal Pupil description, left Regular Pupil description, right Regular Pupil reaction, left Brisk Pupil reaction, right Brisk Strength LUE 4-Active movement against gravity & some resistance Strength RUE 4-Active movement against gravity & some resistance Strength LLE 3-Active movement against gravity Strength RLE 4-Active movement against gravity & some resistance Tone LUE Normal Tone RUE Normal Tone LLE Normal Tone RLE Normal Sensation LUE Intact Sensation RUE Intact Sensation LLE Intact Sensation RLE Intact Movement LUE Spontaneous, To command Movement RUE Spontaneous, To command Movement LLE Spontaneous, To command Movement RLE Spontaneous, To command Neuro WNL except Eyes and Movements Conjugate gaze: Move in same direction at same speed . Evaluation Pt A/Ox4. no neuro deficits. 4/5 strength to right extremity 3/5 strength to all other extremities.+perrla, face symmetrical. NSR on tele. Lug sounds dim on RA. primofit in place, low appetite. peg tube clamped. bs x4 and nontender lbm 7/10 bowel meds ordered and given. PIV patent. r portcath not accessed. pills whole bed in lowest position, call baker within reach, bed alarm on. . * Rachel GARCÍA, Nancy M: MODIFY, MODIFY, MODIFY, PERFORM, MODIFY, MODIFY, MODIFY Event Display: Progress Note Hospital Authored Date: Patient: ??KIM VEGA ? Age:??64 Years?Sex:??Female?:??1960?? Chief Complaint/Reason for Consultation Right sided weakness History of Present Illness Interval HPI: Overnight without acute events. Patient reports some improvement in right sided weakness. CT Head w/ contrast demonstrating evolving acute infarcts in??bilateral parietal lobes, as wellas Left frontal and right occipital. No overt mass. MRI Brain degraded by motion, but again with acute infarcts?? (bilateral parietal lobes, as well as Left frontal and right occipital), as well as evidence of early cortical laminar necrosis associated with??right parietal lobe. Recommended??repeatimaging in 4-8 weeks to rule out metastasis. ? Review of Systems Constitutional: Denies fever/chills. HEENT: Denies dizziness. Denies headache. Denies recent loss or change in vision. Cardiovascular: Denies chest pain and/or palpitations. Denies shortness of breath.?? Respiratory: Denies SOB/dyspnea. ?? GI: Denies N/V/D. Denies abdominal discomfort. : Denies dysuria, or nocturia. Denies any other urinary symptoms. Neuro: Denies dizziness. Denies headache. Denies recent loss or change in vision. Denies paresthesia. Reports improvement in weakness Musculoskeletal: Denies musculoskeletal pain. ?? Objective Vital Signs?? Temperature: 97.6 DegF (02/24/24 11:02:00) Temperature Route: Oral (02/24/24 11:02:00) Pulse Rate: 66 bpm (02/24/24 11:02:00) Respiratory Rate: 16 br/min (02/24/24 11:02:00) Systolic Blood Pressure: 114 mm Hg (02/24/24 11:02:00) Diastolic Blood Pressure: 72 mm Hg (02/24/24 11:02:00) Blood pressure sites: Arm, right (02/24/24 03:00:00) Mean Arterial Pressure: 86 mm Hg (02/24/24 11:02:00) Pulse Pressure: 42 mm Hg (02/24/24 11:02:00) Oxygen Saturation: 100 % (02/24/24 11:02:00) Mode of Delivery (Oxygen): Room air (02/24/24 11:02:00) Early Warning Score: 5 (02/24/24 11:09:19) ? Segun Coma Scale Segun Coma Score: 15 (02/23/24 21:00:00) Motor Response-Adult: Obeys commands (02/23/24 21:00:00) Response Eye Opening: Spontaneously (02/23/24 21:00:00) Verbal Response-Adult: Oriented and converses (02/23/24 21:00:00) ? Physical Exam General:?64-year-old female, who appears stated age. Alert and attentive.??Thin and frail appearing. Responds appropriately to questioning. Limited speech, but speech that is offered is??clear Integ: Skin is warm, dry and intact. Grayish coloration. No diaphoresis.?? HEENT: Eyes symmetrical. Pupils 2mm, equally round, regular, and responsive to light. Extraocular eye movements intact. No nystagmus. Hearing grossly intact.?? Respiratory: Respirations even and unlabored. GI: Abd??nondistended. Extremities: warm and perfused. Neurological: Mental status: A&O x3. Answers questions and follows??commands. Cranial Nerves: II: Pupils 2mm equally round, regular and reactive to light III, IV, : EOM intact, no gaze preference or deviation. No nystagmus. VFF V: Facial sensation intact to light touch in V1, V2, and V3 segments. VII: Mild right facial asymmetry VIII: Normal hearing to speech IX, X:??Normal palatal elevation, no uvular deviation.?? XI: Shoulder shrug intact XII: Midline tongue protrusion Motor: Musculoskeletal development appropriate for age and gender. Limited ROM RUE Strength Tin Flipper: L: 5/5 ? R: 4/5 Deltoids: L: 5/5 ? R:4/+5 Biceps: ?? L: 5/5 ? R:4/5 Triceps: ?? L: 5/5 ? R:4/5 Knee extension: L: 5/5 ? R: 5/5 Sensory:??LLE neglect to double sided stimulation of lower extremities. Otherwise intact.?? Coordination: Finger to thumb opposition intact Gait: Deferred. ?? Assessment/Plan 65-year-old female with PMH significant for??HTN, laryngeal??cancer (actively receiving chemo, and radiation), PVD with claudication, fem-fem bypass,??COPDETOH use disorder, and current??smoker who presented??as an acute stroke for right sided weakness and right facial droop.??Reportedly, someone ca me to pick the patient up for treatment and she was found to be??drowsy/altered, incontinent of urine, with??a??Right facial droop,??and R sided weakness. Initial NIHSS 18. POC 59, treated. BP 157/89.??CT Head demonstrated an acute evolving infarct in right occipital lobe with probable right parietal lobe ischemia.??CTA Head/Neck with??Left cervical ICA proximal occlusion of undetermined??age. Bihemispheric intracranial vessels with filling.??Epiglottic mass, left lymphadenopathy, and new 5mm RUL lung mass noted. IV bolus initiated and HOB placed as low as pt could tolerate without dyspnea. Patient was??OOW for thrombolytics, and was??not a candidate for endovascular intervention due to LKW and comorbidities.??D-Dimer 1.03. TTE??with normal EF,??some mitral thickening. CT Head w/ contrastdemonstrating evolving acute infarcts in??bilateral parietal lobes, as well as Left frontal and right occipital. No overt mass. MRI Brain degraded by motion, but again with acute infarcts?? (bilateral parietal lobes, as well as Left frontal and right occipital), as well as evidence of early cortical laminar necrosis associated with??right parietal lobe. Recommended??repeat imaging in 4-8 weeks torule out metastasis. Prior lung biopsy with aspergillus species -ID following. ? DDx: Bihemispheric ischemic infarcts -?Subacute Right??parietal region (inferior division of theMCA) and Acute Left posterior periventricular region??- most likely embolic??with hypercoagulable state from cancer considering thromboembolic events in brain, left??cervical occlusion,??and elevatedD-Dimer ? Left ICA occlusion ? Recommendations: - Recommend Lovenox or Coumadin to treat hypercoagulable state, if patient in agreement ? - If patient agrees to Lovenox or Coumadin, please stop ASA and Plavix -??Statin for LDL goal <70 - Recommend GOC discussion ?? - Continue neuro checks, VS, and telemetry monitoring - STAT CT Head for any acute changes - Continue to control??outpatient vascular risks: A1C <7.0. Statin therapy for LDL >70 or >100 with only one vascular risk. custodial BP control. Smoking and ETOH cessation - Stroke education provided? - Remainder of care per primary team, including any further workup for RUL lung mass as necessary, and/or repeat MRI Brain for metastases assessment ? Thank you. Neurology will follow. Please call with any questions/concerns ?? d/w Dr. Zhu d/w Hamida Muñoz ?? Histories Past Medical History/Problem List Active Problems(16) Acid reflux Alcohol abuse, 1-7 beers daily, documented 6-12 beers daily in chart Ankle pain, left Chest pain Chronic Helicobacter pylori gastritis Claudication COPD - Chronic obstructive pulmonary disease/Asthma Fibromyalgia Hypertension Jaw clicking Osteoporosis PVD - Peripheral vascular disease Tachycardia Tobacco smoking behavior - finding, 1/2 ppd up to 2 ppdX51 years Tubular adenoma of colon, s/p polypectomy Underweight ? Past Surgical History Right ax-fem Bypass: 06/03/20 Reduction and internal fixation, left calcaneus avulsion fracture: 10/28/16 Open reduction, internal fixation of bimalleolar fracture, left ankle, using a VariAx plate on the distal fibula from the [employer] and 2 cannulated titanium screws to fix the left medial malleolus: 12/07/11 Colonoscopy w/polypectomy: 2006 PFT - Pulmonary function tests: 11/26/03 Appendectomy Tonsillectomy and adenoidectomy ? Social History Alcohol Details:??Use: Current. ??Frequency: Daily. ??Type: Beer. ??Other: 1-7 beers daily. Tobacco Details:??Use: 10 or more cigarettes (1/2 pack or more)/day in last 30 days. ??Interested in cessation: No. ??No Details:??Use: 10 or more cigarettes (1/2 pack or more)/day in last 30 days. ??Interested in cessation: No. ??No Details:??Use: 10 or more cigarettes (1/2 pack or more)/day in last 30 days. ??Type: Cigarettes. Details:??Current every day smoker ? Stroke Treatment Details Service Categories #1: Occupational Therapy, Physical Therapy, Retirement Able to close lips, pucker and blow out: Yes Able to swallow own secretions: Yes Absence of dysarthria/dysphonia/aphonia: Yes No delay in swallowing (tsp): Yes Patient alert: Yes Swallows water without choking (60cc): Yes Swallows water without choking (tsp): Yes Voice sounds clear, not gurgly (60cc): Yes Voice sounds clear, not gurgly (tsp): Yes Voluntary Cough: Yes Modified Valente Score: 2 ?? Medications Home Medications Acetaminophen (Tylenol 8 HR Arthritis Pain 650 mg oral tablet, extended release)?2?tab(s)?1,300?Milligram?By Mouth?Every 8 hours?as needed?as needed for pain Albuterol (ProAir HFA 90 mcg/inh inhalation aerosol with adapter)?2?puff(s)?Inhalation?4 times a day?as needed?as needed for wheezing Albuterol (albuterol 0.083% inhalation solution)?3?Milliliter?2.5?Milligram?Inhalation?Every 6 hours?as needed?for wheezing Budesonide-Formoterol (Symbicort 80mcg/4.5mcg Inhaler)?2?puff(s)?Inhalation?2 times a day Clopidogrel (Plavix 75 mg oral tablet)?75?Milligram?1?tablet?By Mouth?Daily?for 30?Days Clopidogrel (clopidogrel 75 mg oral tablet)?1?tablet?By Mouth?Daily Dexamethasone (dexamethasone 4 mg oral tablet)?See Instructions?1 tab (4mg) By Mouth once a day for 3 days as directed after chemo, with food Durable Medical Equipment (Cane)?See Instructions?1 each Lactulose (lactulose 10 gm/15 ml oral syrup)?15?Milliliter?10?gram?By Mouth?Daily?as needed?as needed for constipation Lidocaine/Prilocaine Topical (lidocaine-prilocaine 2.5%-2.5% topical cream)?See Instructions?apply small dollop to portacat site 1 hr prior to appt and cover with plastic Miscellaneous Rx (Boost VHC 1 carton (chocolate preferred) Dx: ??Laryngeal carcinoma)?See Instructions?Pls d/c previous oral supplement orders. ??Begin Boost VHC 1 carton po (chocolate preferred) tid. Ht: ??150.8cmWt: ??31.5kgBMI: ??13.8 Olanzapine (olanzapine 2.5 mg oral tablet)?1?tablet?By Mouth?Daily at bedtime? DIRECTED. Ondansetron (ondansetron 8 mg oral tablet)?1?tab(s)?8?Milligram?By Mouth?Every 8 hours?as needed?as needed for nausea/vomiting Oxycodone (oxyCODONE 5 mg/5 mL oral solution)?5?Milliliter?5?Milligram?By Mouth?Every 8 hours Pramipexole (pramipexole 0.125 mg oral tablet)?TAKE 1 TABLET BY MOUTH AT BEDTIME PROCHLORperazine (prochlorperazine 10 mg oral tablet)?1?tab(s)?10?Milligram?By Mouth?Every 6 hours?as needed?nausea/vomiting?may cause drowsiness Ropinirole (rOPINIRole 0.5 mg oral tablet)?2?tab(s)?1?Milligram?By Mouth?Daily atbedtime Senna (senna 8.8 mg/5 mL oral syrup)?10?Milliliter?17.6?Milligram?By Mouth?Daily at bedtime?as needed?for constipation Tramadol (traMADol 5 mg/mL oral liquid)?10?Milliliter?50?Milligram?By Mouth?Every6 hours?as needed?Pain , Moderate ? Inpatient Medications Medications (22) Active SCHEDULED: (12) Aspirin 81 mg EC Tablet (aspirin 81 mg oral delayed release tablet) ??81 mg, By Mouth, Daily Clopidogrel 75 mg Tablet (clopidogrel 75 mg oral tablet) ??75 mg, By Mouth, Daily Docusate Sodium 100 mg Capsule (Colace sodium 100 mg oral capsule) ??100 mg 1 capsule, By Mouth, 2 times a day Heparin 5000 units/mL Inj (1 mL) (Heparin Inj) ??5,000 units 1 mL, Subcutaneous Injection, 2 times a day NaCl 0.9% Flush 3ml (NaCL 0.9% Flush) ??3 mL, IV Push, Every 8 hours Nicotine 21 mg / 24 hour Patch (Nicotine Topical) ??21 mg, Topically, Daily Olanzapine 2.5 mg Tablet (olanzapine 2.5 mg oral tablet) ??2.5 mg, By Mouth, Daily at bedtime Polyethylene Glycol 17 Gm Powder (MiraLax Powder) ??17 Gm 1 pack/packet, By Mouth, Daily Pramipexole 0.25 mg Tablet (pramipexole 0.25 mg oral tablet) ??0.125 mg, By Mouth, Daily at bedtime Remove Patch (Remove ??Patch) ??1 each, Topically, Daily Ropinirole 1 mg Tablet (rOPINIRole 1 mg oral tablet) ??1 mg, By Mouth, Daily at bedtime Voriconazole 200 mg Tablet (Voriconazole Tablet) ??200 mg, By Mouth, Every 12 hours CONTINUOUS: (1) NaCL 0.9% (1000 mL) Cont IV 1,000 mL (0.9% NaCL 1,000 mL) ??1,000 mL, IV Infusion, 100 mL/hr PRN: (9) Acetaminophen 325 mg Tablet (Acetaminophen Tablet) ??650 mg, By Mouth, Every 4 hours Dextromethorphan-Guaifenesin 20 mg-200 mg/10 mL Liqu UD (Robitussin DM Liquid) ??10 mL, By Mouth, Every 4 hours Docusate Sodium 100 mg Capsule (Docusate Sodium Capsule) ??100 mg 1 capsule, By Mouth, 2 times a day Melatonin 3 mg Tablet (Melatonin Tablet) ??3 mg, By Mouth, Daily at bedtime NaCl 0.9% Flush 3ml (NaCL 0.9% Flush) ??3 mL, IV Push, Every 8 hours Ondansetron 2mg/mL Inj (2mL Vial) (Zofran Inj) ??4 mg, IV Push, Every 6 hours Polyethylene Glycol 17 Gm Powder (MiraLax Powder) ??17 Gm 1 pack/packet, By Mouth, Daily Senna Tablet ??8.6 mg 1 tablet, By Mouth, 2 times a day Simethicone 80 mg Chewable Tablet (Simethicone Tablet) ??80 mg, Chew, 3 times a day ? Results Recent Labs BACTERIOLOGY Mouth Yeast Culture Result Dolores albicans (Abnormal)?? 02/20/2024 16:16 ?? BLOOD COUNT & DIFF WBC 3.5 k/mm3 (Low)?? 02/24/2024 06:36 RBC 4.49 m/mm3 ()?? 02/24/2024 06:36 Hgb 11.5 Gm/dL (Low)?? 02/24/2024 06:36 Hct 36.8 % ()?? 02/24/2024 06:36 MCV 82.0 femtoliters ()?? 02/24/2024 06:36 MCH 25.6 pg (Low)?? 02/24/2024 06:36 MCHC 31.3 g/dL (Low)?? 02/24/2024 06:36 Platelet Count 215 k/mm3 ()?? 02/24/2024 06:36 RDW-SD 54.5 femtoliters (High)?? 02/24/2024 06:36 MPV 8.8 femtoliters (Low)?? 02/24/2024 06:36 Nucleated RBC (Automated) 0.0 #/100 WBC'S ()?? 02/24/2024 06:36 Abs. NRBC 0.0 k/mm3 ()?? 02/24/2024 06:36 ?? CHEM GENERAL Sodium 138 mmol/L ()?? 02/24/2024 06:36 Potassium 4.6 mmol/L ()?? 02/24/2024 06:36 Chloride 103 mmol/L ()?? 02/24/2024 06:36 Bicarbonate Level 23 mmol/L ()?? 02/24/2024 06:36 Anion Gap 12 ()?? 02/24/2024 06:36 Glucose Level 76 mg/dL ()?? 02/24/2024 06:36 BUN 7 mg/dL (Low)?? 02/24/2024 06:36 Creatinine-Blood 0.42 mg/dL (Low)?? 02/24/2024 06:36 Estimated GFR Creatinine 111 ML/MIN/1.73 M2 ()?? 02/24/2024 06:36 Calcium 8.5 mg/dL (Low)?? 02/24/2024 06:36 Phosphorus 3.7 mg/dL ()?? 02/24/2024 06:36 Magnesium 1.8 mg/dL ()?? 02/24/2024 06:36 Protein, Total 5.3 Gm/dL (Low)?? 02/24/2024 06:36 Albumin 3.4 Gm/dL ()?? 02/24/2024 06:36 AG Ratio 1.8 ()?? 02/24/2024 06:36 Alkaline Phosphatase 78 units/L ()?? 02/24/2024 06:36 AST (SGOT) 20 units/L ()?? 02/24/2024 06:36 ALT (SGPT) 15 units/L ()?? 02/24/2024 06:36 Bilirubin, Total <0.2 mg/dL ()?? 02/24/2024 06:36 ?? URINE OTHER Est Creatinine Clearance 71.25 mL/min ()?? 02/24/2024 09:40 ? Abnormal Labs ?? BLOOD COUNT & DIFF Abs. NRBC?0.0 k/mm3 ()?02/24/2024 06:36 Hgb?11.5 Gm/dL (Low)?02/24/2024 06:36 MCH?25.6 pg (Low)?02/24/2024 06:36 MCHC?31.3 g/dL (Low)?02/24/2024 06:36 MPV?8.8 femtoliters (Low)?02/24/2024 06:36 Nucleated RBC (Automated)?0.0 #/100 WBC'S ()?02/24/2024 06:36 RDW-SD?54.5 femtoliters (High)?02/24/2024 06:36 WBC?3.5 k/mm3 (Low)?02/24/2024 06:36 ?? CHEM GENERAL AG Ratio?1.8 ()?02/24/2024 06:36 BUN?7 mg/dL (Low)?02/24/2024 06:36 Calcium?8.5 mg/dL (Low)?02/24/2024 06:36 Creatinine-Blood?0.42 mg/dL (Low)?02/24/2024 06:36 Estimated GFR Creatinine?111 ML/MIN/1.73 M2 ()?02/24/2024 06:36 Protein, Total?5.3 Gm/dL (Low)?02/24/2024 06:36 ?? Note: Critical results are displayed in red. ? * Michael Zhu MD: PERFORM Event Display: Progress Note Hospital Authored Date: NEUROLOGY ATTENDING NOTE: Patient seen and examined with??BUSINESS BANKING MANAGER Nancy Ramos.??I reviewed his note and agree with his assessment and plan. ?? Michael Zhu MD, PhD * Hamida Elliott DO: PERFORM Event Display: Progress Note Hospital Authored Date: Patient: ??KIM VEGA ? Age:??64 Years?Sex:??Female?:??1960?? Subjective Overnight events:??Had CT head and MRI brain. ??Images were suboptimal due to movement but it appears that her??neurologic issues are more likely to be due to to stroke than invasive aspergillosis. Today:??Patient is doing well, she is tired. ??She would like to go home.?? We discussed that her family is flea vomiting her house so we should wait for that to be finished before she goes home.?? She??No chest pain, shortness of breath, Bridger pain, leg pain, leg swelling. Review of Systems A full review of systems was completed and is otherwise negative except as mentioned in history of present illness Objective Vital Signs?? Temperature: 97 DegF (02/24/24 07:10:00) Temperature Route: Temporal (02/24/24 07:10:00) Pulse Rate: 63 bpm (02/24/24 07:10:00) Respiratory Rate: 16 br/min (02/24/24 07:10:00) Systolic Blood Pressure: 124 mm Hg (02/24/24 07:10:00) Diastolic Blood Pressure: 72 mm Hg (02/24/24 07:10:00) Blood pressure sites: Arm, right (02/24/24 03:00:00) Mean Arterial Pressure: 89 mm Hg (02/24/24 07:10:00) Pulse Pressure: 52 mm Hg (02/24/24 07:10:00) Oxygen Saturation: 100 % (02/24/24 07:10:00) Mode of Delivery (Oxygen): Room air (02/24/24 07:10:00) Early Warning Score: 5 (02/24/24 09:40:35) ? Physical Exam General Appearance: The patient is in NAD. Cardiovascular: RRR S1 and S2 heard with no M/R/G. Respiratory: ??Breath sounds clear to auscultation bilaterally. No wheezing. Good air movement throughout both lungs. GI: Soft. Nontender and nondistended.?? MS: ??No edema or erythema in the lower extremities.?? Neuro: ??unable to lift right eyebrow. right arm and leg weakness mildly improved Results Abnormal Labs ?? BLOOD COUNT & DIFF Abs. NRBC?0.0 k/mm3 ()?02/24/2024 06:36 Hgb?11.5 Gm/dL (Low)?02/24/2024 06:36 MCH?25.6 pg (Low)?02/24/2024 06:36 MCHC?31.3 g/dL (Low)?02/24/2024 06:36 MPV?8.8 femtoliters (Low)?02/24/2024 06:36 Nucleated RBC (Automated)?0.0 #/100 WBC'S ()?02/24/2024 06:36 RDW-SD?54.5 femtoliters (High)?02/24/2024 06:36 WBC?3.5 k/mm3 (Low)?02/24/2024 06:36 ?? CHEM GENERAL AG Ratio?1.8 ()?02/24/2024 06:36 BUN?7 mg/dL (Low)?02/24/2024 06:36 Calcium?8.5 mg/dL (Low)?02/24/2024:36 Creatinine-Blood?0.42 mg/dL (Low)?02/24/2024:36 Estimated GFR Creatinine?111 ML/MIN/1.73 M2 ()?02/24/2024:36 Protein, Total?5.3 Gm/dL (Low)?02/24/2024 06:36 ?? Note: Critical results are displayed in red. ?? Assessment/Plan Patient is a 64-year-old lady with a PMH of COPD, fibromyalgia, PVD s/p fem???fem bypass, alcohol use disorder, smoker, laryngeal carcinoma on chemotherapy and radiation therapy who presents to the ED with altered mentation.?? Found to have an acute ischemic stroke with acute left posterior periventricular region left ICA occlusion with subacute right parietal region inferior division of the MCA infarct.?? Echo without any appearance of HFrEF or left ventricular thrombus.?? She was unable to lay flat for an MRI so we we will proceed with a CT head with contrast to evaluate for metastasis.?? She is actively receiving radiation therapy for her laryngeal cancer and we arranged transport to [facility]rad[facility] for this.?? On further investigation into her lung biopsy in December, he was growing aspergillosis??and she was placed on voriconazole??for pulmonary aspergillosis on which which she will need to remain??for the duration of her chemotherapy.?? She was able to have head CTs and MRIs overnight??which were limited by motion but did not show signs of invasive aspergillosis, it appears that??stroke is more likely to have caused her neurologic deficits.?? Family brought concerns that herhouse is??infested with fleas??and went to flea bomb the place and clean it before she arrives, will hold discharge until this is arranged. ?? Acute ischemic stroke Presented with altered mental status is found to have findings of acute ischemic stroke. Unable to lay flat for an MRI, will obtain CT head with and without contrast to evaluate if lesionsare ischemic stroke versus metastases. ??? Aspirin and Plavix ??? Statin for LDL goal less than 70 ??? VTE prophylaxis ??? Neurochecks every 4 ??? Stat CT for any acute changes ??? Continue telemetry ?? Pulmonary Aspergillosis Immunocompromised Right upper lung mass noted on recent imaging. Patient reports that this mass has been biopsied previously and was benign. IR biopsy in December did show chronic inflammation with findings of fungal hyphae in keeping with aspergillosis species. She is severely immunocompromised with her??chemo and laryngeal carcinoma,??pulmonary nodule shouldlikely be treated as invasive aspergilloma. She will need to remain on voriconazole for the duration of her chemotherapy per ID. ??? Voriconazole 200 mg twice daily ?? Laryngeal carcinoma Patient has a history of laryngeal carcinoma on chemotherapy and radiation. She is actively undergoing radiation treatments and is scheduled for 1 today. She is stable for transfer, will arrange for patient to receive radiation therapy. She has a G-tube blood and preemptively because she was unable to swallow with her cancer treatments. May be an option if nutrition becomes an issue. ??? Radiation treatment as scheduled ??? G-tube for nutrition as an option if needed ?? Tobacco use Patient is a smoker. ???Nicotine patch ?? Quality measures Code: Full DVT: Subcu heparin Diet: Dental soft OMN: Safe discharge plan,??pending flea bomb of her house. ?? Patient discussed with attending physician, Dr. Cynthia Elliott, DO Internal Medicine PGY3 ?? * Cynthia MENDOZA, Rom: PERFORM Event Display: Progress Note Hospital Authored Date: Attending Attestation:??I have seen and evaluated this patient. ??I have discussed the case and itsmanagement with the resident and agree with the findings and plan as documented in the resident???snote. Consult note * Emma Borges MD: PERFORM Event Display: Consultation Note Authored Date: Patient: ??KIM VEGA ? Age:??64 Years?Sex:??Female?:??1960?? Provider Clinical Summary Reason for follow-up:??Pulmonary??aspergillosis??in an immunocompromised patient History of Present Illness The patient is a pleasant frail 64-year-old female with a past medical history of longstanding cigarette smoking, COPD, PVD and pulmonary nodules who was diagnosed with laryngeal carcinoma and is currently undergoing chemotherapy and radiotherapy.?? She refused her chemotherapy through her right chest port with a cisplatin-based regimen.?? In terms of her lung nodules the patient underwent a CT-guided lung biopsy on 12/31 for right lung nodule.?? No cultures were sent but pathology showed lung parenchyma with fibroelastosis, chronic inflammation and abundant clusters of fungal hyphae in keeping with Aspergillus species with blood and evidence of malignancy.?? I am not sure if this was ever followed up on but patient is now admitted from home on 02/20 after being found to be incontinent of urine, right arm drift and aphasia.?? CT head showed an evolving acute infarct within the right occipital lobe with probable area of ischemia in the right parietal lobe.?? She is being followed by neurology and an MRI of her brain done overnight though poorquality, showed acute infarcts in the right p arietal lobe and involving the left frontal and parietal lobes.?? A CT scan of the chest showed a stable lung with extensive emphysema and a cavitary lesion in the right upper lobe being unchanged with left lung nodule has been unchanged as well.?? She was started on voriconazole yesterday after discussion with the infectious disease service.?? She does admit that she has had no problems since her lung biopsy except for generalized weakness and losing weight.?? No fevers, chills, productive sputum, headache or blurred vision. ?? Allergies:??Antibiotic allergies listed as doxycycline but the patient says she gets GI upset from it?? Review of Systems All other review of systems fully reviewed and negative aside from what is listed above in the HPI.No fatigue, weight loss, blurred vision, hallucinations, chest pain, nausea, vomiting, diarrhea, headache, blurred vision. Physical Exam Vitals & Measurements Vital Signs?? Temperature: 97 DegF (02/24/24 07:10:00) Temperature Route: Temporal (02/24/24 07:10:00) Pulse Rate: 63 bpm (02/24/24 07:10:00) Respiratory Rate: 16 br/min (02/24/24 07:10:00) Systolic Blood Pressure: 124 mm Hg (02/24/24 07:10:00) Diastolic Blood Pressure: 72 mm Hg (02/24/24 07:10:00) Blood pressure sites: Arm, right (02/24/24 03:00:00) Mean Arterial Pressure: 89 mm Hg (02/24/24 07:10:00) Pulse Pressure: 52 mm Hg (02/24/24 07:10:00) Oxygen Saturation: 100 % (02/24/24 07:10:00) Mode of Delivery (Oxygen): Room air (02/24/24 07:10:00) Early Warning Score: 5 (02/24/24 07:11:33) G ENERAL: In no acute distress, frail on??room air. ??Having breakfast HEENT: Anicteric, no subconjunctival petechiae, moist oral mucosa without lesions or thrush NECK: Neck supple, without cervical lymphadenopathy CARDIOVASCULAR: Regular rate and rhythm. ??Not able to appreciate any murmurs, rubs, or gallops. ??No peripheral edema.?? RESPIRATORY: Bibasilar crackles GASTROINTESTINAL: Non-distended, normoactive bowel sounds, non-tender GENITOURINARY: No??Townsend catheter MUSCULOSKELETAL: Without joint effusions, no tenderness over spine. All extremities examined SKIN: ??No diffuse rash present, no stigmata of infective endocarditis PSYCHIATRIC: No signs of hallucinations or delusions NEUROLOGICAL: Has slow speech. ??Please see neurolog??note for detailed neurological exam LINES: PIV, port to the right chest Assessment/Plan Assessment:??Impression: This is a frail 64-year-old female with a past medical history of COPD, fibromyalgia PVD, alcohol use disorder and chronic smoker with recent diagnosis of laryngeal carcinomaundergoing weekly chemotherapy and also on radiotherapy who was admitted from home with an acute ischemic stroke.??Of note the patient had a lung biopsy of a pulmonary nodule in the right upper lobe in December which showed Aspergillus species with inflammation for which an infectious disease consult was requested.??On reviewing her CT chest the area of inflammation is stable with a cavitary nodule inkeeping with her known pulmonary aspergillosis. I do not believe that the stroke and the diagnosis of pulmonary aspergillosis are related. ?? Recommendations: 1.??Agree with voriconazole for as long as the patient will remain immunosuppressed on chemotherapy 2.??I see that a galactomannan was sent, I have also added BD glucan and blood cultures for completion ?? ID will follow? Problem List/Past Medical History Ongoing Acid reflux Alcohol abuse, 1-7 beers daily, documented 6-12 beers daily in chart Ankle pain, left Chest pain Chronic Helicobacter pylori gastritis Claudication COPD - Chronic obstructive pulmonary disease/Asthma Fibromyalgia Hypertension Jaw clicking Osteoporosis PVD - Peripheral vascular disease Tachycardia Tobacco smoking behavior - finding, 1/2 ppd up to 2 ppdX51 years Tubular adenoma of colon, s/p polypectomy Underweight Underweight Procedure/Surgical History ???Right ax-fem Bypass (06/03/2020)???Reduction and internal fixation, left calcaneus avulsion fracture (10/28/2016)???Open reduction, internal fixation of bimalleolar fracture, left ankle, using a VariAx plate on the distal fibula from the [employer] and 2 cannulated titanium screws to fix the left medial malleolus (12/07/2011)???Colonoscopy w/polypectomy (2006)???PFT - Pulmonary function tests (11/26/2003)???Appendectomy???Tonsillectomy and adenoidectomy Medications Inpatient 0.9% NaCL 1,000 mL, 1000 mL, IV Infusion Acetaminophen Tablet, 650 mg, By Mouth, Every 4 hours, PRN aspirin 81 mg oral delayed release tablet, 81 mg, By Mouth, Daily CISplatin IVPB CISplatin IVPB, 48.4 mg, 40 mg/m2, IVPB, Chemo To Be Scheduled CISplatin IVPB, 48.4 mg, 40 mg/m2, IVPB, Chemo To Be Scheduled clopidogrel 75 mg oral tablet, 75 mg, By Mouth, Daily Dexamethasone Tablet, 12 mg, By Mouth, Chemo To Be Scheduled Dexamethasone Tablet, 12 mg, By Mouth, Chemo To Be Scheduled Dexamethasone Tablet, 12 mg, By Mouth, Chemo To Be Scheduled Docusate Sodium Capsule, 100 mg= 1 capsule, By Mouth, 2 times a day, PRN Fosaprepitant IVPB, 150 mg= 100 mL, IVPB, Chemo To Be Scheduled Fosaprepitant IVPB, 150 mg= 100 mL, IVPB, Chemo To Be Scheduled Fosaprepitant IVPB, 150 mg= 100 mL, IVPB, Chemo To Be Scheduled Heparin Flush 100 units/mL Inj, 500 units= 5 mL, IV Push Slowly, Daily, PRN Heparin Inj, 5000 units= 1 mL, Subcutaneous Injection, 2 times a day Mannitol Cont IV 40 Gm + Potassium Chloride Cont IV 20 mEq + Magnesium Sulfate Cont IV 3 Gm + NaCL Mannitol Cont IV 40 Gm + Potassium Chloride Cont IV 20 mEq + Magnesium Sulfate Cont IV 3 Gm + NaCL Mannitol Cont IV 40 Gm + Potassium Chloride Cont IV 20 mEq + Magnesium Sulfate Cont IV 3 Gm + NaCL Melatonin Tablet, 3 mg, By Mouth, Daily at bedtime, PRN MiraLax Powder, 17 Gm= 1 pack/packet, By Mouth, Daily, PRN NaCL 0.9% 1,000 mL + Mannitol Cont IV 40 Gm + Potassium Chloride Cont IV 20 mEq + Magnesium Sulfate NaCL 0.9% 1,000 mL + Mannitol Cont IV 40 Gm + Potassium Chloride Cont IV 20 mEq + Magnesium Sulfate NaCL 0.9% 1,000 mL + Mannitol Cont IV 40 Gm + Potassium Chloride Cont IV 20 mEq + Magnesium Sulfate NaCL 0.9% 500 mL, 500 mL, IV Infusion NaCL 0.9% 500 mL, 500 mL, IV Infusion NaCL 0.9% 500 mL, 500 mL, IV Infusion NaCL 0.9% 500 mL, 500 mL, IV Infusion NaCL 0.9% 500 mL, 500 mL, IV Infusion NaCL 0.9% 500 mL, 500 mL, IV Infusion NaCL 0.9% Flush, 3 mL, IV Push, Every 8 hours NaCL 0.9% Flush, 3 mL, IV Push, Every 8 hours, PRN Nicotine Topical, 21 mg, Topically, Daily olanzapine 2.5 mg oral tablet, 2.5 mg, By Mouth, Daily at bedtime Palonosetron Inj, 0.25 mg= 5 mL, IV Push, Chemo To Be Scheduled Palonosetron Inj, 0.25 mg= 5 mL, IV Push, Chemo To Be Scheduled Palonosetron Inj, 0.25 mg= 5 mL, IV Push, Chemo To Be Scheduled pramipexole 0.25 mg oral tablet, 0.125 mg, By Mouth, Daily at bedtime Remove Patch, 1 each, Topically, Daily Robitussin DM Liquid, 10 mL, By Mouth, Every 4 hours, PRN rOPINIRole 1 mg oral tablet, 1 mg, By Mouth, Daily at bedtime Senna Tablet, 8.6 mg= 1 tablet, By Mouth, 2 times a day, PRN Simethicone Tablet, 80 mg, Chew, 3 times a day, PRN Voriconazole Tablet, 200 mg, By Mouth, Every 12 hours Zofran Inj, 4 mg, IV Push, Every 6 hours, PRN Home albuterol 0.083% inhalation solution, 2.5 mg= 3 mL, Inhalation, Every 6 hours, PRN Boost VHC 1 carton (chocolate preferred) Dx: Laryngeal carcinoma, See Instructions, 11 refills Cane, See Instructions clopidogrel 75 mg oral tablet, 1 tablet, By Mouth, Daily dexamethasone 4 mg oral tablet, See Instructions Ferrous Sulfate EC lactulose 10 gm/15 ml oral syrup, 10 Gm= 15 mL, By Mouth, Daily, PRN lidocaine-prilocaine 2.5%-2.5% topical cream, See Instructions, 1 refills olanzapine 2.5 mg oral tablet, 1 tablet, By Mouth, Daily at bedtime ondansetron 8 mg oral tablet, 8 mg= 1 tablet, By Mouth, Every 8 hours, PRN, 1 refills oxyCODONE 5 mg/5 mL oral solution, 5 mg= 5 mL, By Mouth, Every 8 hours pantoprazole 40 mg oral delayed release tablet Plavix 75 mg oral tablet, 75 mg= 1 tablet, By Mouth, Daily, 5 refills pramipexole 0.125 mg oral tablet ProAir HFA 90 mcg/inh inhalation aerosol with adapter, 2 puffs, Inhalation, 4 times a day, PRN, 11 refills prochlorperazine 10 mg oral tablet, 10 mg= 1 tablet, By Mouth, Every 6 hours, PRN, 1 refills rOPINIRole 0.5 mg oral tablet, 1 mg= 2 tablet, By Mouth, Daily at bedtime senna 8.8 mg/5 mL oral syrup, 17.6 mg= 10 mL, By Mouth, Daily at bedtime, PRN Symbicort 80mcg/4.5mcg Inhaler, 2 puffs, Inhalation, 2 times a day traMADol 5 mg/mL oral liquid, 50 mg= 10 mL, By Mouth, Every 6 hours, PRN, 1 refills Tylenol 8 HR Arthritis Pain 650 mg oral tablet, extended release, 1300 mg= 2 tablet, By Mouth, Every 8 hours, PRN Antibiotic History Active Antibiotics Calendar Day Last Administered First Administered Voriconazole??200 mg, By Mouth, Every 12 hours ?2 02/24/2024 05:02 02/23/2024 17:39 ? Allergies Darvon??(difficulty breathing) aspirin??(n/v) doxycycline??(vomiting) hydrochlorothiazide??(unknown) Social History Alcohol Use: Current. Frequency: Daily. Type: Beer. Other: 1-7 beers daily. Tobacco Use: 10 or more cigarettes (1/2 pack or more)/day in last 30 days. Interested in cessation: No. No Lab Results Test Name Test Result Date/Time Hgb 10.7 Gm/dL 02/23/2024 00:03 EDT Platelet Count 190 k/mm3 02/23/2024 00:03 EDT Sodium 136 mmol/L 02/23/2024 00:03 EDT Potassium 3.5 mmol/L 02/23/2024 00:03 EDT BUN 5 mg/dL 02/23/2024 00:03 EDT Creatinine-Blood 0.32 mg/dL 02/23/2024 00:03 EDT Estimated GFR Creatinine 118 ML/MIN/1.73 M2 02/23/2024 00:03 EDT * Sadiq MENDOZA, Dannie Suarez: PERFORM, MODIFY Event Display: Consultation Note Authored Date: Patient: ??KIM VEGA ? Age:??64 Years?Sex:??Female?:??1960?? Chief Complaint/Reason for Consult From home, LKW 17:00 02/19. Pt is baseline CAOx4, ambulatory. Pt found ??by family on couch, incontinent of urine, right arm drift and aphasia. Not on blood thinners. Hx of CA< currently getting chemo and radiation tx. History of Present Illness 64yo F with h/o laryngeal cancer on chemo/radiation, ETOH, tobacco abuse, PVD- s/p fem-fem bypass presented to the ED with AMS, right facial droop, right arm weakness, and urinary incontinence. NIH 18was documented. CT head showed a right occipital and right parietal infarct. Neurology evaluated and reported an infarct in the left PVWM. CT angio showed a proximal occlusion of the LICA and the known epiglottic mass was seen. Pt denies any visual deficits, odynophagia,??or difficulty swallowing. She states her appetite has been good but has lost 40lbs since october. ??She is edentulous and only wears upper dentures. She saw speech therapy as an outpatient in December and dental soft with thin liquids was recommended. She lives alone in a 1 story, ramp accessible home. Her niece lives nearby and assists with IADLs.??She currently denies any pain. Review of Systems 14 point review of systems negative except as noted above in HPI. Physical Exam Vitals & Measurements T:??97.3?F?? HR:??55??(Peripheral)?? RR:??20?? BP:??151/79?? SpO2:??97%?? HT:??150??cm?? WT:??32.5??kg?? BMI:??14.44?? Gen: Alert, oriented x 3 in NAD, cachectic HEENT: no JVD, PERRL, blink to threat bilat CV: Reg, no murmurs Chest: CTA bilat; right anterior chest wall port intact. Abd: +BS, soft, NT Exts: no??pedal edema Neuro: CN II-XII intact except trace right facial droop MMT: RUE:??4-/5;?? LUE: 5/5 RLE: 4/5;?LLE: 5/5 Babinski absent Sensory: extinction on right to DSS DTRs: biceps and patella 1+ bilat Coordination: impaired F to N and H to S on right ?? Speech/Language: no dysarthria, fluent Mobility: deferred ?? Assessment/Plan 64yo F with h/o laryngeal cancer currently on chemo/radiation, tobacco abuse, PVD presented with right sided motor symptoms, sensory deficits with right neglect. Imaging revealed bilateral infarcts. MRI brain is pending. ? Recommendations: ?? Activity:??Mobilize with PT Bowel Regimen:??Monitor on current regimen Bladder:??Bladder scan for post void residual Q shift X 3 to rule out retention. Straight cath if > 250 ml. Cognition/psychopharmacology:??Avoid benzos, anticholinergics and antihistaminergics because of age.?? DVT prophylaxis:??Defer to primary ?? Neurology:??Appreciate Neurology Note. Pain Management:??Appears comfortable.?? Spasticity:??None ?? Swallow: Recommend dental soft with thin liquids--order changed. ?? Current rehab treatment & further recommendations: Occupational Therapy:??eval pending. Physical Therapy: eval pending Speech Therapy:??not needed here ?? Disposition: Rehab ?? Code Status:??Full Resuscitation HCP:??Has HCP in [facility] ?? Problem List/Past Medical History Ongoing Acid reflux Alcohol abuse, 1-7 beers daily, documented 6-12 beers daily in chart Ankle pain, left Chest pain Chronic Helicobacter pylori gastritis Claudication COPD - Chronic obstructive pulmonary disease/Asthma Fibromyalgia Hypertension Jaw clicking Osteoporosis PVD - Peripheral vascular disease Tachycardia Tobacco smoking behavior - finding, 1/2 ppd up to 2 ppdX51 years Tubular adenoma of colon, s/p polypectomy Underweight Underweight Procedure/Surgical History Right ax-fem Bypass: 06/03/20 Reduction and internal fixation, left calcaneus avulsion fracture: 10/28/16 Open reduction, internal fixation of bimalleolar fracture, left ankle, using a VariAx plate on the distal fibula from the [employer] and 2 cannulated titanium screws to fix the left medial malleolus: 12/07/11 Colonoscopy w/polypectomy: 2006 PFT - Pulmonary function tests: 11/26/03 Appendectomy Tonsillectomy and adenoidectomy Home Medications Acetaminophen: 1,300 mg = 2 tablet, By Mouth, Every 8 hours, PRN (as needed for pain) Albuterol: 2 puffs, Inhalation, 4 times a day, PRN (as needed for wheezing) Albuterol: 2.5 mg = 3 mL, Inhalation, Every 6 hours, PRN (for wheezing) Budesonide-Formoterol: 2 puffs, Inhalation, 2 times a day Clopidogrel: 75 mg = 1 tablet, By Mouth, Daily Clopidogrel: 1 tablet, By Mouth, Daily Dexamethasone: See Instructions, 1 tab (4mg) By Mouth once a day for 3 days as directed after chemo, with food Durable Medical Equipment: See Instructions, 1 each Ferrous Sulfate Lactulose: 10 Gm = 15 mL, By Mouth, Daily, PRN (as needed for constipation) Lidocaine/Prilocaine Topical: See Instructions, apply small dollop to portacath site 1 hr prior to appt and cover with plastic Miscellaneous Rx (Boost VHC 1 carton (chocolate preferred) Dx: ??Laryngeal carcinoma): See Instructions, Pls d/c previous oral supplement orders. ??Begin Boost VHC 1 carton po (chocolate preferred) tid. Ht: ??150.8cmWt: ??31.5kgBMI: ??13.8 Olanzapine: 1 tablet, By Mouth, Daily at bedtime, DIRECTED. Ondansetron: 8 mg = 1 tablet, By Mouth, Every 8 hours, PRN (as needed for nausea/vomiting) Oxycodone: 5 mg = 5 mL, By Mouth, Every 8 hours Pantoprazole Pramipexole: TAKE 1 TABLET BY MOUTH AT BEDTIME PROCHLORperazine: 10 mg = 1 tablet, By Mouth, Every 6 hours, PRN (nausea/vomiting), may cause drowsiness Ropinirole: 1 mg = 2 tablet, By Mouth, Daily at bedtime Senna: 17.6 mg = 10 mL, By Mouth, Daily at bedtime, PRN (for constipation) Tramadol: 50 mg = 10 mL, By Mouth, Every 6 hours, PRN (Pain , Moderate) Hospital Medications Medications (15) Active SCHEDULED: (6) Aspirin 81 mg EC Tablet (aspirin 81 mg oral delayed release tablet) ??81 mg, By Mouth, Daily Clopidogrel 75 mg Tablet (clopidogrel 75 mg oral tablet) ??75 mg, By Mouth, Daily NaCl 0.9% Flush 3ml (NaCL 0.9% Flush) ??3 mL, IV Push, Every 8 hours Olanzapine 2.5 mg Tablet (olanzapine 2.5 mg oral tablet) ??2.5 mg, By Mouth, Daily at bedtime Pramipexole 0.25 mg Tablet (pramipexole 0.25 mg oral tablet) ??0.125 mg, By Mouth, Daily at bedtime Ropinirole 1 mg Tablet (rOPINIRole 1 mg oral tablet) ??1 mg, By Mouth, Daily at bedtime CONTINUOUS: (1) NaCL 0.9% (1000 mL) Cont IV 1,000 mL (0.9% NaCL 1,000 mL) ??1,000 mL, IV Infusion, 100 mL/hr PRN: (8) Acetaminophen 325 mg Tablet (Acetaminophen Tablet) ??650 mg, By Mouth, Every 4 hours Dextromethorphan-Guaifenesin 20 mg-200 mg/10 mL Liqu UD (Robitussin DM Liquid) ??10 mL, By Mouth, Every 4 hours Docusate Sodium 100 mg Capsule (Docusate Sodium Capsule) ??100 mg 1 capsule, By Mouth, 2 times a day Melatonin 3 mg Tablet (Melatonin Tablet) ??3 mg, By Mouth, Daily at bedtime NaCl 0.9% Flush 3ml (NaCL 0.9% Flush) ??3 mL, IV Push, Every 8 hours Polyethylene Glycol 17 Gm Powder (MiraLax Powder) ??17 Gm 1 pack/packet, By Mouth, Daily Senna Tablet ??8.6 mg 1 tablet, By Mouth, 2 times a day Simethicone 80 mg Chewable Tablet (Simethicone Tablet) ??80 mg, Chew, 3 times a day Lab Results PM&R Labs ?? Tox Screen?? WBC: 4.6 k/mm3 (02/22/24) Barbiturate Screen, Urine: NONE DETECTED (02/21/24) Platelet Count: 189 k/mm3 (02/22/24) Cannabinoid Screen, Urine: NONE DETECTED (02/21/24) Sodium: 138 mmol/L (02/22/24) Cocaine Metabolite Screen, Urine: NONE DETECTED (02/21/24) BUN:??6 mg/dL??Low (02/22/24) Benzodiazepine Screen, Urine: NONE DETECTED (02/21/24) Creatinine-Blood:??0.36 mg/dL??Low (02/22/24) Amphetamine Screen, Urine: NONE DETECTED (02/21/24) Barbiturate Screen, Urine: NONE DETECTED (02/21/24) Opiate Screen, Urine: NONE DETECTED (02/21/24) Cannabinoid Screen, Urine: NONE DETECTED (02/21/24) ?? Cocaine Metabolite Screen, Urine: NONE DETECTED (02/21/24) ?? Benzodiazepine Screen, Urine: NONE DETECTED (02/21/24) ?? Amphetamine Screen, Urine: NONE DETECTED (02/21/24) ?? Opiate Screen, Urine: NONE DETECTED (02/21/24) ?? AST (SGOT): 19 units/L (02/22/24 04:43:00) AST (SGOT): 19 units/L (02/21/24 17:16:00) ALT (SGPT): 12 units/L (02/22/24 04:43:00) * Paul GARCÍA, eBst Riddle: PERFORM, MODIFY Event Display: Consultation Note Authored Date: Patient: ??KIM VEGA ? Age:??64 Years?Sex:??Female?:??1960?? Chief Complaint/Reason for Consult From home, LKW 17:00 02/19. Pt is baseline CAOx4, ambulatory. Pt found ??by family on couch, incontinent of urine, right arm drift and aphasia. Not on blood thinners. Hx of CA< currently getting chemo and radiation tx. History of Present Illness 64 yo F BIBA for AST with LKW 1700 02/19. On scene noted to be AMS, drowsy, R FD, R arm weakness andnew??incontinence. Hx:??laryngeal cancer on chemo and radiation, not on Anticoagulation, PVD,??s/p Fem- Fem bypass, etoh use disorder, smoker,??recent change in antipsychotic??medications. ??IN ED, ??NIHSS 18 for drowsy,??follows some??commands, dysarthria, expressive aphasia, R facial droop, R armweakness and?? ataxia, R hemianopsia,?RLE weakness, LLE weak- reports due to increase from baseline pain. Pt is cachectic, has chest implanted port, scattered??ecchymosis, dry tongue, poor skin turgor, Left lower lip fasciculations. POC 59 given 12.5 G D50.?CTH with R inferior?MCA acute and ?? subacute infarct,?L hyperacute posterior periventricular infarct. CTA with L cervical ICA proximal occlusion of undetermined??age.?? IV bolus initiated and HOB placed as low as pt could tolerate without dyspnea. Pt denies dizziness, nausea,??tremors. OOW for thrombolytics and not a candidate for endovascular intervention due to LKW and comorbidities.?? Review of Systems Pt endorses the following symptoms:?? R weakness, worsened L LLE pain, fatigue Patient denies the following: General: ??chills, weight loss, fatigue HEENT: hearing loss, eye pain Cardiac: chest pain, palpitations, syncope, presyncope, edema Pulmonary: dyspnea, wheezing Gastrointestinal: abdominal pain, diarrhea, nausea, vomiting, bowel incontinence Hematological: bruising Neurological: paresthesias, headache, diplopia,?? seizure like activity, gait imbalance, incoordination, ??tremor, memory loss ? Physical Exam Vitals & Measurements HR:??98??(Peripheral)?? RR:??18?? BP:??131/58?? SpO2:??94%?? NIH Stroke Scale: 18?completed??@ 1510?? : ?? Gen: Cachectic, ill?? HEENT: normocephalic, atraumatic. No ptosis. Nares patent. Dry mucous membranes/ tongue Psych: flat/withdrawn?? CV:?? rhythm regular, 2+radial pulses Pulm: normal I:E, mild?dyspnea when laying flat GI/: non-distended, soft, no guarding Derm: ecchymosis scattered Neuro: Mental status: Oriented x 2 Speech?? mild?slurring , mod?aphasia. Repeats . Names well. Follows simple commands.?? Cranial Nerves: PERRL 3 mm brisk , EOMI without nystagmus, R hemianopsia.??R NLF flattening,??Facial sensation intact. Hearing intact to finger rub bilaterally.??Tongue and uvula midline. Palate symmetric movements. Shoulder shrug R weaker.?? Motor: LUE 5/5, LLE 2/5, RUE 3/5 RLE 1/5 . R arm?? pronator drift. Generalized atrophy. Lower lip fasciculations Coordination: R arm ataxia when upper arm supported.?? Sensation: Intact light touch sensation bilaterally. No extinction to double simultaneous stimulation. Unable to assess gait due to pain and weakness.?? Assessment/Plan 65 yo F with Hx??Laryngeal Ca??actively receiving chemo, radiation, PVD, fem-fem bypass, etoh use disorder, smoker presented??as AST with LKW 2 day prior. Normally has L Leg pain but is independent and ambulatory, lives alone. Someone came to pick her up for treatment today and found her drowsy, altered incontinent with R FD and R sided weakness. NIHSS 18. POC 59, treated. BP 157/89.?MCA acuteand??subacute infarct,?L hyperacute posterior periventricular infarct. CTA with L cervical ICA proximal occlusion of undetermined??age. Bihemispheric intracranial vessels with filling.??IV bolus in itiated and HOB placed as low as pt could tolerate without dyspnea. Pt denies dizziness, nausea,??tremors. OOW for thrombolytics and not a candidate for endovascular intervention due to LKW and comorbidities.? DDX: R inferior??MCA acute and subaute??infarct L hyperacute posterior periventricular infarct?? L ICA occlusion ?? Recommendations: ??-admit to Hospital Medicine service ??-q4hr neuro checks - check D Dimer, lipid panel, A1C - depending on results of D dimer would check in with Onc/Rad regarding safety of initiating therapeutic Anticoagulation with Lovenox for this pt??(Dr. Lorenzana Hematology has no contraindication, but has not seen the pt since December, Defer to Onc/Rad. Please contact them once d dimer is back. -permissive hypertension, do not treat elevated BP unless reaches?? - Maintain HOB as flat as pt will tolerate (without dyspnea)??to allow for improved cerebral perfusion.?? -IVF bolus x 1 L followed by maint IV inf 100 ml/hr to improve perfusion. - statin for goal LDL<70 ??-Strict NPO until swallow screen (including meds), then low salt cardiac diet - If fails bedside nursing??swallow screen will need formal swallow evaluation ??-MRI brain without ALBINA,??routine ??-telemetry for rhythm monitoring ??-Transthoracic echo,??no bubble study ??-DVT prophylaxis with SC lovenox ??-PM&R consult?-Provide stroke education pamphlet to reinforce??stroke education and smoking cessation (if applicable)??provided to patient/family during consult ??-Encourage patient/family to alert staff to any new changes in neurological symptoms -Thrombolytics considered: not given due to OOW - Neuro will follow ?Case discussed and pt seen with Dr. Zhu Initial recommendations given to Dr. Brito ?? Problem List/Past Medical History Ongoing Acid reflux Alcohol abuse, 1-7 beers daily, documented 6-12 beers daily in chart Ankle pain, left Chest pain Chronic Helicobacter pylori gastritis Claudication COPD - Chronic obstructive pulmonary disease/Asthma Fibromyalgia Hypertension Jaw clicking Osteoporosis PVD - Peripheral vascular disease Tachycardia Tobacco smoking behavior - finding, 1/2 ppd up to 2 ppdX51 years Tubular adenoma of colon, s/p polypectomy Underweight Underweight Procedure/Surgical History Right ax-fem Bypass: 06/03/20 Reduction and internal fixation, left calcaneus avulsion fracture: 10/28/16 Open reduction, internal fixation of bimalleolar fracture, left ankle, using a VariAx plate on the distal fibula from the [employer] and 2 cannulated titanium screws to fix the left medial malleolus: 12/07/11 Colonoscopy w/polypectomy: 2006 PFT - Pulmonary function tests: 11/26/03 Appendectomy Tonsillectomy and adenoidectomy Home Medications Acetaminophen: 1,300 mg = 2 tablet, By Mouth, Every 8 hours, PRN (as needed for pain) Albuterol: 2 puffs, Inhalation, 4 times a day, PRN (as needed for wheezing) Albuterol: 2.5 mg = 3 mL, Inhalation, Every 6 hours, PRN (for wheezing) Budesonide-Formoterol: 2 puffs, Inhalation, 2 times a day Clopidogrel: 75 mg = 1 tablet, By Mouth, Daily Clopidogrel: 1 tablet, By Mouth, Daily Dexamethasone: See Instructions, 1 tab (4mg) By Mouth once a day for 3 days as directed after chemo, with food Durable Medical Equipment: See Instructions, 1 each Ferrous Sulfate Lactulose: 10 Gm = 15 mL, By Mouth, Daily, PRN (as needed for constipation) Lidocaine/Prilocaine Topical: See Instructions, apply small dollop to overlake hospital medical center site 1 hr prior to appt and cover with plastic Miscellaneous Rx (Boost VHC 1 carton (chocolate preferred) Dx: ??Laryngeal carcinoma): See Instructions, Pls d/c previous oral supplement orders. ??Begin Boost VHC 1 carton po (chocolate preferred) tid. Ht: ??150.8cmWt: ??31.5kgBMI: ??13.8 Olanzapine: 1 tablet, By Mouth, Daily at bedtime, DIRECTED. Ondansetron: 8 mg = 1 tablet, By Mouth, Every 8 hours, PRN (as needed for nausea/vomiting) Oxycodone: 5 mg = 5 mL, By Mouth, Every 8 hours Pantoprazole Pramipexole: TAKE 1 TABLET BY MOUTH AT BEDTIME PROCHLORperazine: 10 mg = 1 tablet, By Mouth, Every 6 hours, PRN (nausea/vomiting), may cause drowsiness Ropinirole: 1 mg = 2 tablet, By Mouth, Daily at bedtime Senna: 17.6 mg = 10 mL, By Mouth, Daily at bedtime, PRN (for constipation) Tramadol: 50 mg = 10 mL, By Mouth, Every 6 hours, PRN (Pain , Moderate) Allergies Darvon??(difficulty breathing) aspirin??(n/v) doxycycline??(vomiting) hydrochlorothiazide??(unknown) Social History Alcohol Use: Current. Frequency: Daily. Type: Beer. Other: 1-7 beers daily. Tobacco Use: 10 or more cigarettes (1/2 pack or more)/day in last 30 days. Interested in cessation: No. No Family History No family history recorded. Radiology (02/21/2024 15:[address] Head-Hyper Acute Stroke) ?? Acute evolving infarct within the right occipital lobe with a probable area of ischemia in the right parietal lobe. [1] (02/21/2024 15:[address] Angio Neck Hyperacute Stroke) ?? Proximal occlusion of the left cervical ICA just distal to the bifurcation with reconstitution at the supraclinoid segment due to collateral flow. The impression above was relayed to Savannah Brito DO by Dr. Tacos Sánchez via [employer] with acknowledgement received on 02/21/2024 at 3:46 PM. ?? Patent tonawanda of [place]. ?? 40% stenosis of the proximal right internal carotid artery by NASCET criteria. ?? Epiglottic mass extending to the left of the midline into the piriform sinus which appears effaced and into the preepiglottic fat as seen on prior PET scan most compatible with patient's known neoplastic process. ?? Left level 2 lymphadenopathy, similar to prior PET scan. ?? Preliminary interpretation. The final interpretation and report are pending completion of reconstructions. These are not yet available for review. [2] [1]??CT Head-Hyper Acute Stroke; Sabrina Flores MD 02/21/2024 15:25 EDT [2]??CT Angio Neck Hyperacute Stroke; Dunia Finch 02/21/2024 15:25 EDT * Michael Zhu MD: PERFORM Event Display: Consultation Note Authored Date: [id number] NEUROLOGY ATTENDING ATTESTATION NOTE: Patient seen and examined??with BUSINESS BANKING MANAGER Best Miller. I reviewed her note and agree with her assessment and plan. In brief, this is a 65yo F with h/o Laryngeal Ca??actively receiving chemo, radiation, PVD, fem-fem bypass, etoh use disorder, smoker presented??as AST with LKW 2 day prior. Found with drowsiness and new right sided weakness and expressive aphasia; [id number]. CT bihemispheric infarcts; subacute in the right parietal region (inferior division of the MCA) and acute left in the posterior periventricular region.?? CTA with L cervical ICA proximal occlusion of undetermined??age and intracranial collateralization, since siphon ICA is filled by ophthalmic artery and left A1 is open. IV bolus initiated and HOB placed as low as pt could tolerate without dyspnea. We can give her [id number] or rectal x 1; We willc heck D-Dimer, if high, she might be best on Lovenox to prevent future strokes, Check Lipid panel and HbA1c as well. MRI of brain might help to determine full extents of stroke andrule out microbleeds. No a thrombolysis candidate, since OOW; not a thrombectomy candidate since OOW and also very distal vascular problems; ?? Michael Zhu MD, PhD Note * Izabel Cruz RN: PERFORM Event Display: Discharge/Transfer Note Hospital Authored Date: [id number] Nursing Discharge Note Entered On: 02/25/2024 13:18 EDT Performed On: 02/25/2024 12:40 EDT by Izabel Cruz RN Nursing Discharge Note 2 Discharge Time : 02/25/2024 12:40 EDT Discharge Level of Care at Discharge : Homehealth/VNA Discharge VNA/Hospice/Home Care(v001) : [facility] [phone] Patient Left Unit Via : Wheelchair Patient Accompanied Off Unit with : Responsible adult DC Instructions Provided & Signed by Pt : Yes Patient Understands D/C Instructions : Yes Patient Instructions Discharge Signed : Yes Did Pt have Specialty Bed or Wound Vac : No Anthony JIMENEZ, Izabel - 02/25/2024 13:17 EDT * Hamida Elliott DO: PERFORM, MODIFY, MODIFY Event Display: Discharge/Transfer Note Hospital Authored Date: [id number] Patient: ??KIM VEGA ? Age:??64 Years?Sex:??Female?:??1960?? Patient Information Discharge Location: D5A Primary Care Physician: Not on Staff, PCP Admit Date/Time: 02/21/24 17:48 Discharge Disposition Discharge Disposition: Home with Home Health Discharge Diagnosis Acute stroke due to ischemia (I63.9) Carcinoma larynx (C32.9) Hypercoagulable state (D68.59) Pulmonary aspergillosis (B44.1) COPD - Chronic obstructive pulmonary disease/Asthma (J44.9) Hypertension (I10) Fibromyalgia (M79.7) Urinary incontinence (R32) _ Discharge Medications Acetaminophen (Tylenol 8 HR [...] food Durable Medical Equipment (Cane)?See Instructions?1 each Enoxaparin (Lovenox 60 mg/0.6 mL injectable solution)?0.5?Milliliter?50?Milligram?Subcutaneous Injection?Daily?for 30?Days Lactulose (lactulose 10 gm/15 ml oral syrup)?15?Milliliter?10?gram?By Mouth?Daily?as needed?as needed for constipation Lidocaine/Prilocaine Topical (lidocaine-prilocaine 2.5%-2.5% topical cream)?See Instructions?apply small dollop to portacath site 1 hr prior to appt and cover with plastic Miscellaneous Rx (Boost VHC 1 carton (chocolate preferred) Dx: ??Laryngeal carcinoma)?See Instructions?Pls d/c previous oral supplement orders. ??Begin Boost VHC 1 carton po (chocolate preferred) tid. Ht: ??150.8cmWt: ??31.5kgBMI: ??13.8 Nicotine (Nicoderm C-Q Clear 21 mg/24 hr transdermal film, extended release)?1?patch(es)?Topically?Daily Olanzapine (olanzapine 2.5 mg oral tablet)?1?tablet?By Mouth?Daily at bedtime? DIRECTED. Ondansetron (ondansetron 8 mg oral tablet)?1?tab(s)?8?Milligram?By Mouth?Every 8 hours?as needed?as needed for nausea/vomiting Oxycodone (oxyCODONE 5 mg/5 mL oral solution)?5?Milliliter?5?Milligram?By Mouth?Every 8 hours Pramipexole (pramipexole 0.125 mg oral tablet)?TAKE 1 TABLET BY MOUTH AT BEDTIME PROCHLORperazine (prochlorperazine 10 mg oral tablet)?1?tab(s)?10?Milligram?By Mouth?Every 6 hours?as needed?nausea/vomiting?may cause drowsiness Ropinirole (rOPINIRole 0.5 mg oral tablet)?2?tab(s)?1?Milligram?By Mouth?Daily atbedtime Senna (senna 8.8 mg/5 mL oral syrup)?10?Milliliter?17.6?Milligram?By Mouth?Daily at bedtime?as needed?for constipation Tramadol (traMADol 5 mg/mL oral liquid)?10?Milliliter?50?Milligram?By Mouth?Every6 hours?as needed?Pain , Moderate Voriconazole (voriconazole 200 mg oral tablet)?200?Milligram?By Mouth?Every 12 hours?for 30?Days ?? Medications Started Voriconazole (voriconazole 200 mg oral tablet)?200?Milligram?By Mouth?Every 12 hours?for 30?Days Enoxaparin (Lovenox 60 mg/0.6 mL injectable solution)?0.5?Milliliter?50?Milligram?Subcutaneous Injection?Daily?for 30?Days Medications Discontinued Clopidogrel (clopidogrel 75 mg oral tablet)?1?tablet?By Mouth?Daily Doses Changed none Allergies Allergies ?(Active and Proposed Allergies Only) Darvon? (Severity: Unknown severity, Onset: Unknown) ?Reactions: difficulty breathing hydrochlorothiazide? (Severity: Unknown severity, Onset: Unknown) ?Reactions: unknown doxycycline? (Severity: Unknown severity, Onset: Unknown) ?Reactions: vomiting ? PCP Follow-Up/Heads-Up Patient came in with strokes and??was discharged on therapeutic Lovenox for anticoagulation. Also found to have pulmonary aspergillosis??via biopsy from December, will need voriconazole 200 twice daily??for the duration of her chemotherapy. Please follow-up aspergillosis antigen and beta D glucan Future Appointments Monday 10:30 AM EDT ?? 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 Found to have an acute ischemic stroke with acute left posterior periventricular region left ICA occlusion with subacute right parietal region inferior division of the MCA infarct. Echo without any appearance of HFrEF or left ventricular thrombus. She was unable to lay flatfor an MRI so we we will proceed with a CT head with contrast to evaluate for metastasis. She is actively receiving radiation therapy for her laryngeal cancer and we arranged transport to her radiation center for this. On further investigation into her lung biopsy in December, he was growing aspergillosis and she was placed on voriconazole for pulmonary aspergillosis on which which she will need to remain for the duration of her chemotherapy. She was able to have head CTs and MRIs overnight which were limited by motion but did not show signs of invasive aspergillosis, it appears that stroke is more likely to have caused her neurologic deficits. Family brought concerns that her house is infested with fleas and went to flea bomb the place and clean it before she arrives, will hold discharge until this is arranged.??Per neurology we will??therapeutically anticoagulate her with her history of??hypercoagulable state with her??malignancy, she elected therapeutic Lovenox as an anticoagulation??method from the options of??Lovenox versus Coumadin.??Will stop aspirin and Plavix with therapeutic anticoagulation.? Objective Acute ischemic stroke Presented with altered mental status is found to have findings of acute ischemic stroke. Unable to lay flat for an MRI, will obtain CT head with and without contrast to evaluate if lesionsare ischemic stroke versus metastases. ??? Aspirin and Plavix ??? Statin for LDL goal less than 70 ??? VTE prophylaxis ??? Neurochecks every 4 ??? Stat CT for any acute changes ??? Continue telemetry ?? Pulmonary Aspergillosis Immunocompromised Right upper lung mass noted on recent imaging. Patient reports that this mass has been biopsied previously and was benign. IR biopsy in December did show chronic inflammation with findings of fungal hyphae in keeping with aspergillosis species. She is severely immunocompromised with her??chemo and laryngeal carcinoma,??pulmonary nodule shouldlikely be treated as invasive aspergilloma. She will need to remain on voriconazole for the duration of her chemotherapy per ID. ??? Voriconazole 200 mg twice daily for the duration of her chemotherapy ?? Laryngeal carcinoma Patient has a history of laryngeal carcinoma on chemotherapy and radiation. She is actively undergoing radiation treatments and is scheduled for 1 today. She is stable for transfer, will arrange for patient to receive radiation therapy. She has a G-tube blood and preemptively because she was unable to swallow with her cancer treatments. May be an option if nutrition becomes an issue. ??? Radiation treatment as scheduled ??? G-tube for nutrition as an option if needed ?? Tobacco use Patient is a smoker. ???Nicotine patch ?? Vital Signs?? Temperature: 97.7 DegF (02/25/24 08:49:00) Temperature Route: Axillary (02/25/24 08:49:00) Pulse Rate: 66 bpm (02/25/24 08:49:00) Respiratory Rate: 16 br/min (02/25/24 08:49:00) Systolic Blood Pressure:??152 mm Hg??High (02/25/24 08:49:00) Diastolic Blood Pressure: 75 mm Hg (02/25/24 08:49:00) Blood pressure sites: Arm, left (02/25/24 08:49:00) Mean Arterial Pressure: 101 mm Hg (02/25/24 08:49:00) Pulse Pressure: 77 mm Hg (02/25/24 08:49:00) Oxygen Saturation: 100 % (02/25/24 08:49:00) Mode of Delivery (Oxygen): Room air (02/25/24 08:49:00) Early Warning Score: 2 (02/25/24 08:49:46) ? Intake/Output? 02/20 17:48 02/24 07:00 02/23 07:00 02/22 07:00 02/21 07:00 ?? 02/24 09:38 02/24 09:38 02/24 06:59 02/23 06:59 02/22 06:59 Intake ? 6384 ?0 ? 1950 ?834 ? 3600 Output ? 1750 ?0 ?500 ?350 ?900 Net Total ? 4634 ?0 ? 1450 ?484 ? 2700 ? Urine Count ?5 ?0 ?3 ?0 ?2 ? . Physical Exam General Appearance: The patient is in NAD. Cardiovascular: RRR S1 and S2 heard with no M/R/G. Respiratory: ??Breath sounds clear to auscultation bilaterally. No wheezing. Good air movement throughout both lungs. GI: Soft. Nontender and nondistended.?? MS: ??No edema or erythema in the lower extremities.?? Neuro: ??No slurred speech. ??Patient seen moving their upper and lower extremities independently Consultants Jony MENDOZA, Emma Ramos NP, Nancy Riddle - Neurology Pending Results Aspergillus Antigen ordered on 02/24/2024 Beta D Glucan Assay ordered on 02/24/2024 Patient Education Titles WebMD Ignite Patient Education - Voriconazole Oral Tablet?? WebMD Ignite Patient Education - Enoxaparin Injectable Solution?? Follow-Up Appointments Added Follow Up ?Time Frame ?Comments Not on Staff, PCP?1 to 2 weeks Patient Instructions You came in with weakness on the right side and were found to have stroke.?? You are treated with aspirin and Plavix while you are here, but we decided to??give you??blood thinning medicine on discharge instead. You will be discharged with Lovenox??50 mg daily.?? It is very important that you take these injections daily to prevent further strokes and??blood clots. You are also found to have??a fungal infection in your lungs,??you will be prescribed voriconazole??to be taken twice daily for this. ??You will need to take this for the duration of your chemotherapy. Please follow-up with your PCP within the next 1 to 2 weeks. Please return to the hospital if you have any worsening weakness or numbness in your extremities, headache, fevers, chills or any worsening of symptoms of brought into the hospital. Home Health Face to Face *Denotes mandatory fu ?? *I certify that this patient is under my care and that I or an allowed non- physician working with me had a face to face encounter with the patient on this date:??02/25/2024 09:51 ?? *The encounter with the patient was in whole, or in part, for the following medical condition, which is the primary diagnosis(es) for home health care:??Acute stroke due to ischemia (I63.9) Carcinoma larynx (C32.9) Hypercoagulable state (D68.59) Pulmonary aspergillosis (B44.1) COPD - Chronic obstructive pulmonary disease/Asthma (J44.9) Hypertension (I10) Fibromyalgia (M79.7) Urinary incontinence (R32) ?? *Select the indications for the discipline/s that are being arranged for this patient. Nursing (select all that apply): [_] None [_x] Medication management (reconciliation, teaching)?? [x_] Chronic disease management?? [_] Wound care and treatment?? [_x] Home safety evaluation [_] Administer SQ/IM/IV medications?? [_] Cath care?? [_] Drain care?? [_] Trach or GT care?? Other _ Occupation Therapy (select all that apply): [_] None [x_] ADL Management [x_] Fall prevention training [x_] Energy conservation [_x] Cognitive training Other _ Physical Therapy (select all that apply): [_] None [x_] Functional mobility training [x_] Home exercise program to strengthen [_x] Increase ROM?? [x_] Falls prevention training [x_] Home maintenance program for chronic disease Other _ Speech Therapy (select all that apply): [_] None [_] Swallow evaluation and training [_] Speech and language training [_] Cognitive training to process, organize, and/or recall information Other _ ? *Homebound due to (select all that apply): [_] Inability to leave home without assistance/supervision [_] Inability to ambulate without assistance [_] Pain [_x] Decreased strength and endurance [x_] Unsteady gait [_] Severe SOB and fatigue [_] Impaired transfers [_] Inability to negotiate stairs [_] Limited weight bearing [_] Mental status change? *Physician Signature: _Hamida Elliott,??DO ?? *By signing this, I certify that I have personally evaluated the patient and agree with the findings and recommendations as documented above. ? Results Discharge Labs BLOOD BANK Blood Type O Positive ()?? 02/21/2024 15:18 Antibody Screen Negative ()?? 02/21/2024 15:18 ?? BLOOD COUNT & DIFF WBC 4.1 k/mm3 ()?? 02/25/2024 01:40 RBC 4.15 m/mm3 (Low)?? 02/25/2024 01:40 Hgb 10.5 Gm/dL (Low)?? 02/25/2024 01:40 Hct 33.3 % (Low)?? 02/25/2024 01:40 MCV 80.2 femtoliters ()?? 02/25/2024 01:40 MCH 25.3 pg (Low)?? 02/25/2024 01:40 MCHC 31.5 g/dL (Low)?? 02/25/2024 01:40 Platelet Count 232 k/mm3 ()?? 02/25/2024 01:40 RDW-SD 53.1 femtoliters (High)?? 02/25/2024 01:40 MPV 9.2 femtoliters (Low)?? 02/25/2024 01:40 Nucleated RBC (Automated) 0.0 #/100 WBC'S ()?? 02/25/2024 01:40 Abs. NRBC 0.0 k/mm3 ()?? 02/25/2024 01:40 Abs. Neut 3.4 k/mm3 ()?? 02/22/2024 04:42 Abs. Lymph 0.5 k/mm3 (Low)?? 02/22/2024 04:42 Abs. [place] 0.6 k/mm3 ()?? 02/22/2024 04:42 Abs. Eo 0.0 k/mm3 ()?? 02/22/2024 04:42 Abs. Baso 0.0 k/mm3 ()?? 02/22/2024 04:42 Neut % 73.9 % ()?? 02/22/2024 04:42 Lymph % 11.3 % (Low)?? 02/22/2024 04:42 [place] % 13.3 % (High)?? 02/22/2024 04:42 Eos % 0.9 % ()?? 02/22/2024 04:42 Baso % 0.2 % ()?? 02/22/2024 04:42 Imm Gran 0.4 % ()?? 02/22/2024 04:42 Abs. Imm Gran 0.0 k/mm3 ()?? 02/22/2024 04:42 ?? CARDIAC High Sensitivity Troponin (HSTnT) 19 ng/L (High)?? 02/21/2024 17:16 ? CHEM GENERAL Sodium 142 mmol/L ()?? 02/25/2024 01:40 Potassium 4.4 mmol/L ()?? 02/25/2024 01:40 Chloride 106 mmol/L ()?? 02/25/2024 01:40 Bicarbonate Level 25 mmol/L ()?? 02/25/2024 01:40 Anion Gap 11 ()?? 02/25/2024 01:40 Glucose Level 104 mg/dL (High)?? 02/25/2024 01:40 Glucose, POC 70 mg/dL ()?? 02/21/2024 19:28 Hemoglobin A1C (Monitoring) 6.3 % (High)?? 02/22/2024 06:10 BUN 10 mg/dL ()?? 02/25/2024 01:40 Creatinine-Blood 0.41 mg/dL (Low)?? 02/25/2024 01:40 Estimated GFR Creatinine 111 ML/MIN/1.73 M2 ()?? 02/25/2024 01:40 Calcium 8.4 mg/dL (Low)?? 02/25/2024 01:40 Phosphorus 4.1 mg/dL ()?? 02/25/2024 01:40 Magnesium 1.8 mg/dL ()?? 02/25/2024 01:40 Protein, Total 5.3 Gm/dL (Low)?? 02/24/2024 06:36 Albumin 3.4 Gm/dL ()?? 02/24/2024 06:36 AG Ratio 1.8 ()?? 02/24/2024 06:36 Alkaline Phosphatase 78 units/L ()?? 02/24/2024 06:36 AST (SGOT) 20 units/L ()?? 02/24/2024 06:36 ALT (SGPT) 15 units/L ()?? 02/24/2024 06:36 Bilirubin, Total <0.2 mg/dL ()?? 02/24/2024 06:36 ? COAG INR 1.0 ()?? 02/21/2024 17:16 Protime (PT) 10.4 seconds ()?? 02/21/2024 17:16 APTT 24.7 seconds ()?? 02/21/2024 17:16 D-Dimer 1.03 mg/L FEU (High)?? 02/21/2024 17:16 ?? LIPID STUDIES Cholesterol 173 mg/dL ()?? 02/22/2024 06:10 Triglycerides 147 mg/dL ()?? 02/22/2024 06:10 HDL Cholesterol 47 mg/dL ()?? 02/22/2024 06:10 LDL Cholesterol 97 mg/dL ()?? 02/22/2024 06:10 Non HDL Cholesterol 126 mg/dL ()?? 02/22/2024 06:10 ? TOXICOLOGY/TDM Barbiturate Screen, Urine NONE DETECTED ()?? 02/21/2024 19:40 Cannabinoid Screen, Urine NONE DETECTED ()?? 02/21/2024 19:40 Cocaine Metabolite Screen, Urine NONE DETECTED ()?? 02/21/2024 19:40 Benzodiazepine Screen, Urine NONE DETECTED ()?? 02/21/2024 19:40 Amphetamine Screen, Urine NONE DETECTED ()?? 02/21/2024 19:40 Opiate Screen, Urine NONE DETECTED ()?? 02/21/2024 19:40 ?? UA/URINALYSIS Appear/Color, Urine COLORLESS ()?? 02/21/2024 19:40 Specific [place], Urine 1.043 (High)?? 02/21/2024 19:40 pH, Urine 7.5 ()?? 02/21/2024 19:40 Albumin, Urine NEGATIVE ()?? 02/21/2024 19:40 Glucose, Urine 1+ (Abnormal)?? 02/21/2024 19:40 Ketones, Urine NEGATIVE ()?? 02/21/2024 19:40 Bilirubin, Urine NEGATIVE ()?? 02/21/2024 19:40 Hemoglobin, Urine NEGATIVE ()?? 02/21/2024 19:40 Nitrite, Urine NEGATIVE ()?? 02/21/2024 19:40 Leukocyte, Urine NEGATIVE ()?? 02/21/2024 19:40 Urobilinogen NORMAL mg/dL ()?? 02/21/2024 19:40 WBC's, Urine NONE SEEN /HPF ()?? 02/21/2024 19:40 RBC's, Urine 2 /HPF ()?? 02/21/2024 19:40 Squamous Epith 1 /HPF ()?? 02/21/2024 19:40 Amorphous Crystals SLIGHT /HPF ()?? 02/21/2024 19:40 Hold Urine Culture Testing available 48 hours from time of collection. ()?? 02/21/2024 19:40 ?? URINE OTHER Est Creatinine Clearance 72.99 mL/min ()?? 02/25/2024 03:58 ? 02/24/2024 00:56 EDT MRI Brain W/O Contrast IMPRESSION: ?? Exam is significantly degraded by patient motion, and the entire requested pre and post contrast exam could not be performed as the patient declined further imaging. ?? Acute infarcts in the right parietal lobe and involving the left frontal and parietal lobes as described above. Evidence of early cortical laminar necrosis associated with the right parietal lobe infarct. ?? Please note that given the presence of early cortical laminar necrosis, if postcontrast imaging is performed in the immediate to short-term, it is possible that the areas of infarct will show (expected) enhancement. Presence of enhancement related to ischemia may cause limitations in the assessmentfor metastasis at this stage of the evolving infarcts. If attempt at staging is not needed urgentlybased on clinical factors, staging scans could be more accurately as follow up in 4-8 weeks. If done urgently while the infarcts enhance, a follow-up scan would still be needed for more accurate assessment in any areas of evolving ischemia which enhance.? 02/23/2024 23:[address] Head/Brain W+W/O Contrast IMPRESSION: 1. ??Evolving acute infarcts in bilateral parietal, right occipital, and left frontal lobes. 2. ??No evidence of an enhancing intracranial mass. If clinical concern persists, follow-up with MRI should be considered.? 02/23/2024 23:[address] Chest W/ Contrast IMPRESSION: ?? Stable chest compared to 11/26/2023 CT scan. ?? No findings of acute infection. ?? Echo 02/22/24 Summary ??The left ventricular size is normal. Left ventricular wall thickness is ??normal. The LV systolic function is normal . The left ventricular ejection ??fraction is 60-65 %. There are no regional wall motion abnormalities. Normal ??diastolic function. ?There is moderate mitral annular calcification. The mitral valve appears ??mildly thickened. The mitral valve opening is normal. There is trivial ??mitral regurgitation. ?The right ventricle is normal in size and function. [1] ?? 02/21/2024 16:16 EDT Chest 2 Views Frontal and Lat ?? IMPRESSION: ?? No evidence of acute abnormality.? 02/21/2024 15:[address] Angio Head Hyperacute Stroke IMPRESSION: ? Proximal occlusion of the left cervical ICA just distal to the bifurcation with reconstitution at the supraclinoid segment due to collateral flow. The impression above was relayed to Savannah Brito DO by Dr. Tacos Sánchez via [employer] with acknowledgement received on 02/21/2024 at 3:46 PM. ?? Patent tonawanda of [place]. ?? 40% stenosis of the proximal right internal carotid artery by NASCET criteria. ?? Epiglottic mass extending to the left of the midline into the piriform sinus which appears effaced and into the preepiglottic fat as seen on prior PET scan most compatible with patient's known neoplastic process. ?? Left level 2 lymphadenopathy, similar to prior PET scan. ?? Newly apparent 5 mm parenchymal nodule in the right upper lobe anterolaterally. ? 02/21/2024 15:[address] Head-Hyper Acute Stroke IMPRESSION: ?? Acute evolving infarct within the right occipital lobe with a probable area of ischemia in the right parietal lobe. ?? Patient discussed with attending physician, Dr. Cynthia Elliott, DO Internal Medicine PGY3 ?? _30 minutes spent on discharge [1]??Echo Complete-Doppler, Colorflow, M-Mode; Leida MENDOZA, Mitchel Carlos 02/22/2024 11:26 EDT * Cynthia MENDOZA, Rom: PERFORM Event Display: Discharge/Transfer Note Hospital Authored Date: Attending Attestation:??I have seen and evaluated this patient. ??I have discussed the case and itsmanagement with the resident and agree with the findings and plan as documented in the resident???snote. * Izabel Cruz RN: PERFORM Event Display: Patient Education/Instruction Authored Date: Inpatient Adult Discharge Instructions. [address] [address] Name: KIM VEGA : 1960?? Visit: 02/21/2024 17:48?? Current Date: 02/25/2024 11:46 ?? Account: [id number]?? Inpatient Adult Discharge Instructions We would like [...] and their families. Surveys are administered by [employer]. ?? If further treatment with your primary care physician or another doctor is recommended, it is important for you to keep the appointment. Call your primary care physician or return to the Emergency Department immediately if your condition worsens, fails to improve, or new symptoms develop. If you need to find a doctor, you can call [facility] [employer] Link for a referral at [phone] or toll free at [phone] ([phone]) or log in to [email or web address].. ?? [facility], in keeping with [facility] guidance, no longer requires face masks for [...] a health care clarissa of your choosing. [employer] is a website that allows you to securely view your medical information including your hospital discharge summary, office visit summaries, medications and follow-up visits. You can also request appointments, renew medications, and request access to your medical information using a health care clarissa of your choosing, or just ask a question. You can enroll at [email or web address] or register during your next office visit. You have been discharged from [facility], Patient Care Unit: D5A??. If you have any questions regarding these instructions, including results of studies pending, afteryou leave, please call us and we will be happy to assist you 06/03. [facility] Your Care Team Attending Physician Rom Marie MD?? Consulting Providers Rom Marie MD?? Discharging Providers Hamida Elliott DO Reason for Your Visit From home, LKW 17:00 02/19. Pt is baseline CAOx4, ambulatory. Pt found ??by family on couch, incontinent of urine, right arm drift and aphasia. Not on blood thinners. Hx of CA< currently getting chemo and radiation tx.?? Your Diagnosis Carcinoma larynx Hypercoagulable state Pulmonary aspergillosis COPD - Chronic obstructive pulmonary disease/Asthma Hypertension Tests Performed Below is a partial list of the tests performed during your hospitalization. You may have had other tests and procedures not included in this list. Please discuss all test results with your provider. Amphetamine Urine Screen AST Barbiturate Urine Screen Basic Metabolic Panel Benzodiazepine Urine Screen Blood Culture Blood Culture #2 Blood Culture 2 Results Blood Culture Result BUN Cannabinoid Urine Screen CBC CBC w/ Differential Cocaine Urine Screen Comprehensive Metabolic Panel Creatinine D Dimer Electrolytes GLUCOSE POC Hemoglobin A1C (Monitoring) High??Sensitivity??Troponin T Lipid Panel Magnesium Level Opiate Screen Urine Phosphorus Level PT (INR) PTT Type and Screen Urinalysis w/hold for Urine Culture Chest CT W/ Contrast CT Angio Head Hyperacute Stroke CT Angio Neck Hyperacute Stroke CT Head-Hyper Acute Stroke CT Head/Brain W+W/O Contrast MRI Brain W/O Contrast XR Chest 2 Views Frontal and Lat Add On Lab Order?? Aspergillus Antigen?? Beta D Glucan Assay?? Primary Care Provider Mark MENDOZA , Jennifer Darnell? Advance Directive Health Care Proxy on File Yes - Health Care Proxy Discharge Vitals Temperature: 97.7 DegF Height: 150 cm Pulse Rate: 66 bpm Weight: 32.5 kg Respiratory Rate: 16 br/min Body Mass Index:??14.44 kg/m2??Low Systolic Blood Pressure:??152 mm Hg??High Body surface area: 1.16 Diastolic Blood Pressure: 75 mm Hg ?? Oxygen Saturation: 100 % ?? Studies Pending All studies ordered during this hospital stay have been completed unless listed below. Please discuss all pending results with your provider listed above in these instructions. ?? Add On Lab Order?? Aspergillus Antigen?? Beta D Glucan Assay?? What to do next Instructions From Your Doctor You came in with weakness on the right side and were found to have stroke.?? You are treated with aspirin and Plavix while you are here, but we decided to??give you??blood thinning medicine on discharge instead. You will be discharged with Lovenox??50 mg daily.?? It is very important that you take these injections daily to prevent further strokes and??blood clots. You are also found to have??a fungal infection in your lungs,??you will be prescribed voriconazole??to be taken twice daily for this. ??You will need to take this for the duration of your chemotherapy. Please follow-up with your PCP within the next 1 to 2 weeks. Please return to the hospital if you have any worsening weakness or numbness in your extremities, headache, fevers, chills or any worsening of symptoms of brought into the hospital. ?? Orders? 02/25/24 10:12:00 EDT?? Prescriptions??, ??02/25/24 10:12:00 EDT?? Scheduled Follow-Up Appointments Monday 10:30 AM EDT ?? Where: [place] [address]- Status: Pending You Need to Schedule the Following Appointments Follow Up with??Not on Staff, PCP When:??Within 1 to 2 weeks Discharge Medications KIM VEGA :1960 Visit Date:02/21/2024 Medications: Please continue your medications until treatment is completed or stopped by your provider. Medications not listed below should be discontinued. Discuss any questions related to medications with your provider. What How Much When Instructions Next Dose New Enoxaparin (Lovenox 60 mg/ 0.6 mL injectable solution) 0.5 Milliliter Subcutaneous Injection Daily Duration: 30 Days Refills: 1 Pickup at [facility] 3 02/26/2024 9AM New Nicotine (Nicoderm C-Q Clear 21 mg/ 24 hr transdermal film, extended release) 1 patch(es) Topically Daily Pickup at [facility] 3 02/26/2024 9AM New Voriconazole (voriconazole 200 mg oral tablet) 200 Milligram Oral Every 12 hours Duration: 30 Days Refills: 3 Pickup at [facility] 3 02/25/2024 9PM Unchanged Acetaminophen (Tylenol 8 HR Arthritis Pain 650 mg oral tablet, extended release) 2 tab(s) Oral Every 8 hours as needed for as needed for pain 02/25/2024 Unchanged Albuterol (albuterol 0.083% inhalation solution) 3 Milliliter Inhalation Every 6 hours as needed for for wheezing 02/25/2024 Unchanged Albuterol (ProAir HFA 90 mcg/ inh inhalation aerosol with adapter) 2 puff(s) Inhalation 4 times a day as needed for as needed for wheezing 02/25/2024 Unchanged Budesonide-Formoterol (Symbicort 80mcg/ 4.5mcg Inhaler) 2 puff(s) Inhalation Twice a day 02/25/2024 9PM Unchanged Dexamethasone (dexamethasone 4 mg oral tablet) See instructions 1 tab (4mg) By Mouth once a day for 3 days as directed after chemo, with food ?? As order Unchanged Durable Medical Equipment (Cane) See instructions 1 each ?? As order Unchanged Ferrous Sulfate (Ferrous Sulfate EC) 02/26/2024 9AM Unchanged Lactulose (lactulose 10 gm/ 15 ml oral syrup) 15 Milliliter Oral Daily as needed for as needed for constipation As order Unchanged Lidocaine/ Prilocaine Topical (lidocaine-prilocaine 2.5%-2.5% topical cream) See instructions apply small dollop to overlake hospital [facility] site 1 hr prior to appt and cover with plastic ?? As order Unchanged Miscellaneous Rx (Boost VHC 1 carton (chocolate preferred) Dx: Laryngeal carcinoma) See instructions Pls d/ c previous oral supplement orders. ??Begin Boost VHC 1 carton po (chocolate preferred) tid. Ht: ??150.8cm Wt: ??31.5kg BMI: ??13.8 ?? As order Unchanged Olanzapine (olanzapine 2.5 mg oral tablet) 1 tab(s) Oral Daily at Bedtime DIRECTED. ?? 02/25/2024 9PM Unchanged Ondansetron (ondansetron 8 mg oral tablet) 1 tab(s) Oral Every 8 hours as needed for as needed for nausea/vomiting As order Unchanged Oxycodone (oxyCODONE 5 mg/ 5 mL oral solution) 5 Milliliter Oral Every 8 hours As order Unchanged Pantoprazole (pantoprazole 40 mg oral delayed release tablet) 02/26/2024 9AM Unchanged Pramipexole (pramipexole 0.125 mg oral tablet) TAKE 1 TABLET BY MOUTH AT BEDTIME ?? 02/25/2024 9PM Unchanged PROCHLORperazine (prochlorperazine 10 mg oral tablet) 1 tab(s) Oral Every 6 hours as needed for nausea/vomiting may cause drowsiness ?? ORDER Unchanged Ropinirole (rOPINIRole 0.5 mg oral tablet) 2 tab(s) Oral Daily at Bedtime 02/25/2024 9PM Unchanged Senna (senna 8.8 mg/ 5 mL oral syrup) 10 Milliliter Oral Daily at Bedtime as needed for for constipation ORDER Unchanged Tramadol (traMADol 5 mg/ mL oral liquid) 10 Milliliter Oral Every 6 hours as needed for Pain , Moderate ORDER Pharmacy Information [facility] 3: [address], [place] [id number] [phone] ?? What How Much When Comments Stop Taking Clopidogrel (clopidogrel 75 mg oral tablet) 1 tab(s) Oral Daily Stop Taking Clopidogrel (Plavix 75 mg oral tablet) 1 tab(s) Oral Daily Duration: 30 Days Prescription Given During Visit Enoxaparin (Lovenox 60 mg/0.6 mL injectable solution) - 0.5 mL = 50 mg, Subcutaneous Injection, Daily, # 15 mL, 1 Refills, [facility], [address] [place] [phone]?? Nicotine (Nicoderm C-Q Clear 21 mg/24 hr transdermal film, extended release) - 1 patch, Topically, Daily, # 30 patch, 0 Refills, [facility], [address] [place] [phone]?? Voriconazole (voriconazole 200 mg oral tablet) - 200 mg, By Mouth, Every 12 hours, # 60 tablet, 3 Refills, [facility], [address] [place] [phone]?? Laboratory Results Below is a partial list of the most recent Laboratory test results done prior to this discharge. You may have had other tests and procedures not included in this list. Please discuss all test resultswith your provider. Est Creatinine Clearance - 72.99 mL/min (02/25/2024) Amphetamine Urine Screen (02/21/2024) ???Amphetamine Screen, Urine - NONE DETECTED AST (02/21/2024) ???AST (SGOT) - 19 units/L Barbiturate Urine Screen (02/21/2024) ???Barbiturate Screen, Urine - NONE DETECTED Basic Metabolic Panel (02/25/2024) ???Sodium - 142 mmol/L???Potassium - 4.4 mmol/L???Chloride - 106 mmol/L???Bicarbonate Level - 25 mmol/L???Anion Gap - 11???Glucose Level - 104 mg/dL???BUN - 10 mg/dL???Creatinine-Blood - 0.41 mg/dL???Estimated GFR Creatinine - 111 ML/MIN/1.73 M2???Calcium - 8.4 mg/dL Benzodiazepine Urine Screen (02/21/2024) ???Benzodiazepine Screen, Urine - NONE DETECTED Blood Culture (02/24/2024) ???Blood Culture Results - Preliminary report???Blood Culture Specimen Source - BLOOD Blood Culture #2 (02/24/2024) ???Blood Cult 2 Results - Preliminary report???Blood Culture 2 Specimen Source - BLOOD Blood Culture 2 Results (02/24/2024) ???Blood Culture 2 Isolate 1 - Comment Blood Culture Result (02/24/2024) ???Blood Culture Isolate 1 - Comment BUN (02/23/2024) ???BUN - 5 mg/dL Cannabinoid Urine Screen (02/21/2024) ???Cannabinoid Screen, Urine - NONE DETECTED CBC (02/25/2024) ???WBC - 4.1 k/mm3???RBC - 4.15 m/mm3???Hgb - 10.5 Gm/dL???Hct - 33.3 %???MCV - 80.2 femtoliters???MCH - 25.3 pg???MCHC - 31.5 g/dL???Platelet Count - 232 k/mm3???RDW-SD - 53.1 femtoliters???MPV - 9.2 femtoliters???Nucleated RBC (Automated) - 0.0 #/100 WBC'S???Abs. NRBC - 0.0 k/mm3 CBC w/ Differential (02/22/2024) ???WBC - 4.6 k/mm3???RBC - 4.31 m/mm3???Hgb - 10.9 Gm/dL???Hct - 35.2 %???MCV - 81.7 femtoliters???MCH - 25.3 pg???MCHC - 31.0 g/dL???Platelet Count - 189 k/mm3???RDW-SD - 53.4 femtoliters???MPV - 8.6 femtoliters???Nucleated RBC (Automated) - 0.0 #/100 WBC'S???Abs. NRBC - 0.0 k/mm3???Abs. Neut - 3.4 k/mm3???Abs. Lymph - 0.5 k/mm3???Abs. Overton - 0.6 k/mm3???Abs. Eo - 0.0 k/mm3???Abs. Baso - 0.0 k/mm3???Neut % - 73.9 %???Lymph % - 11.3 %???Overton % - 13.3 %???Eos % - 0.9 %???Baso % - 0.2 %???Imm Gran - 0.4 %???Abs. Imm Gran - 0.0 k/mm3 Cocaine Urine Screen (02/21/2024) ???Cocaine Metabolite Screen, Urine - NONE DETECTED Comprehensive Metabolic Panel (02/24/2024) ???Sodium - 138 mmol/L???Potassium - 4.6 mmol/L???Chloride - 103 mmol/L???Bicarbonate Level - 23 mmol/L???Anion Gap - 12???Glucose Level - 76 mg/dL???BUN - 7 mg/dL???Creatinine-Blood - 0.42 mg/dL???Estimated GFR Creatinine - 111 ML/MIN/1.73 M2???Calcium - 8.5 mg/dL???Protein, Total - 5.3 Gm/dL???Alb umin - 3.4 Gm/dL???AG Ratio - 1.8???Alkaline Phosphatase - 78 units/L???AST (SGOT) - 20 units/L???ALT (SGPT) - 15 units/L? ?Bilirubin, Total - <0.2 mg/dL Creatinine (02/23/2024) ???Creatinine-Blood - 0.32 mg/dL???Estimated GFR Creatinine - 118 ML/MIN/1.73 M2 D Dimer (02/21/2024) ???D-Dimer - 1.03 mg/L FEU Electrolytes (02/23/2024) ???Sodium - 136 mmol/L???Potassium - 3.5 mmol/L???Chloride - 104 mmol/L???Bicarbonate Level - 22 mmol/L???Anion Gap - 10 GLUCOSE POC (02/21/2024) ???Glucose, POC - 70 mg/dL Hemoglobin A1C (Monitoring) (02/22/2024) ???Hemoglobin A1C (Monitoring) - 6.3 % High??Sensitivity??Troponin T (02/21/2024) ???High Sensitivity Troponin (HSTnT) - 19 ng/L Lipid Panel (02/22/2024) ???Cholesterol - 173 mg/dL???Triglycerides - 147 mg/dL???HDL Cholesterol - 47 mg/dL???LDL Cholesterol - 97 mg/dL???Non HDL Cholesterol - 126 mg/dL Magnesium Level (02/25/2024) ???Magnesium - 1.8 mg/dL Opiate Screen Urine (02/21/2024) ???Opiate Screen, Urine - NONE DETECTED Phosphorus Level (02/25/2024) ???Phosphorus - 4.1 mg/dL PT (INR) (02/21/2024) ???INR - 1.0???Protime (PT) - 10.4 seconds PTT (02/21/2024) ???APTT - 24.7 seconds Type and Screen (02/21/2024) ???Blood Type - O Positive???Antibody Screen - Negative Urinalysis w/hold for Urine Culture (02/21/2024) ???Appear/Color, Urine - COLORLESS???Specific [place], Urine - 1.043???pH, Urine - 7.5???Albumin, Urine - NEGATIVE???Glucose, Urine - 1+???Ketones, Urine - NEGATIVE???Bilirubin, Urine - NEGATIVE???Hemoglobin, Urine - NEGATIVE???Nitrite, Urine - NEGATIVE???Leukocyte, Urine - NEGATIVE???Urobilinogen - NORMAL???WBC's, Urine - NONE SEEN???RBC's, Urine - 2 /HPF???Squamous Epith - 1 /HPF???Amorphous Crystals - SLIGHT???Hold Urine Culture - Testing available 48 hours from time of collection. Allergies (NKA means No Known Allergies) Darvon??(difficulty breathing) doxycycline??(vomiting) hydrochlorothiazide??(unknown) Problems Active Problems??(16) Acid reflux?? Alcohol abuse, 1-7 beers daily, documented 6-12 beers daily in chart?? Ankle pain, left?? Chest pain?? Chronic Helicobacter pylori gastritis?? Claudication?? COPD - Chronic obstructive pulmonary disease/Asthma?? Fibromyalgia?? Hypertension?? Jaw clicking?? Osteoporosis?? PVD - Peripheral vascular disease?? Tachycardia?? Tobacco smoking behavior - finding, 1/2 ppd up to 2 ppdX51 years?? Tubular adenoma of colon, s/p polypectomy?? Underweight?? Education Materials Below is the list of Educational Leaflet Providered with your Discharge Instructions. [employer] Patient Education - Enoxaparin Prefilled Syringe?? [employer] Patient Education - Discharge Instructions for Stroke?? [employer] Patient Education - Voriconazole Oral Tablet?? [employer] Patient Education - Enoxaparin Injectable Solution?? Valuables and Belongings I fully understand and agree that [facility] accepts no responsibility for all my [...] encouraged to send valuables and belongings home. ?? Review of Valuable and Belonging List: With patient, With witness Date for Pt to Sign Valuables/Belongings: 02/22/24 09:15:00 ?? Other Discharge Information ? Case Management Discharge Plan?? Discharge Plan?? Discharge Agency Information?? Discharge Level of Care at Discharge: Homehealth/VNA Name of Agency #1: [facility] Discharge VNA/Hospice/Home Care: [facility] [phone] Agency Floater Operator #1: Intake ?? Service Categories #1: Occupational Therapy, Physical Therapy, Retirement ?? Service Comments #1: You are being discharged home with [facility], they will contact youafter discharge to arrange a visit time. ?? Pulmonary Rehab Status?? Pulmonary Rehab Discharge Status?? Respiratory Rate: 16 br/min ? Common Emergency Awareness Tips IS [...] are strongly encouraged to quit. Please call [facility] [employer] Link at [phone] or [phone] ([phone]) or log in to [email or web address] for referrals to smoking cessation programs. ?? 983 Suicide & Crisis Lifeline is available 06/03 if you or someone you know needs to find a reason to keep living. By calling 541 you'll be connected to a skilled, trained counselor at a crisis center in your area. INPATIENT DISCHARGE INSTRUCTIONS SIGNATURE PAGE KIM VEGA Location:[facility] Registration Date and Time:02/21/2024 17:48 EDT Primary Care Physician: Not on Staff, PCP Attending Physician: Cynthia MENDOZA, Rom, I KIM VEGA, have received the above patient education materials/instructions and have verbalized understanding. If ambulance or transport services are being used I further acknowledge being given a choice of service. ?? If you need to contact me, please call me at this number: . Patient/Gluer And Wedger Name: Patient/Gluer And Wedger Signature: Relationship to Patient: Witness Name/Signature: Date: * Anthony JIMENEZ [facility]: PERFORM Event Display: Patient Education Leaflets Authored Date: [id number] Enoxaparin Prefilled Syringe ?? [phone] Enoxaparin Prefilled Syringe Brands: Lovenox Uses This medicine is used for the following purposes: ??? heart attack ??? prevent blood clots ??? treatment of blood clots ?? Instructions This medicine is injected into the skin. Ask your doctor, nurse, or pharmacist where on your body this medicine can be injected and how to inject it. Do not mix this medicine with other solutions. Always inspect the medicine before using. The liquid should be clear or light yellow. Check the medicine before each use. If the liquid medicine has any particles in it, appears discolored, or if the vial appears damaged, do not use it. Keep medicine at room temperature. Protect from light. Never use any medicine that has . Change the location of the injection each time. Choose a location at least 1 inch from the last injection. Drug interactions can change how medicines work or increase risk for side effects. Tell your healthcare providers about all medicines taken. Include prescription and xgoj-eyt-[id number] medicines, vitamins, and herbal medicines. Speak with your doctor or pharmacist before starting or stopping any medicine. Talk to your doctor before taking other medicines, including aspirins and ibuprofen containing products. Speak to your doctor about which medicines are safe to use while you are on this medicine. It is very important that you follow your doctor's instructions for all blood tests. ?? Cautions This medicine may cause bleeding from the stomach or bowels. Stop this medicine and call your doctor right away if you have pain in the stomach, red or dark tarry stools, or vomit that looks like coffee grounds. There is an increased risk of bleeding while on this medicine, please tell your doctor or nurse if you notice any excessive bleeding or bruising. Do not use the medication any more than instructed. Tell the doctor or pharmacist if you are , planning to be , or . Ask your pharmacist how to properly throw away used needles or syringes. Do not share this medicine with anyone who has not been prescribed this medicine. ?? Side Effects The following is a list of some common side effects from this medicine. Please speak with your doctor about what you should do if you experience these or other side effects. ??? unusual bruising or discoloration on skin ??? swelling of the legs, feet, and hands ??? fever ??? pain, redness, swelling near injection ??? nausea ??? red, burning, or itchy skin Call your doctor or get medical help right away if you notice any of these more serious side effects: ??? confusion ??? nosebleeds ??? bloody or dark, tarry stools A few people may have an allergic reaction to this medicine. Symptoms can include difficulty breathing, skin rash, itching, swelling, or severe dizziness. If you notice any of these symptoms, seek medical help quickly. ?? Extra Please speak with your doctor, nurse, or pharmacist if you have any questions about this medicine. ?? [email or web address] IMPORTANT NOTE: This document tells you briefly how to take your medicine, but it does not tell youall there is to know about it. Your doctor or pharmacist may give you other documents about your medicine. Please talk to them if you have any questions. Always follow their advice. There is a more complete description of this medicine available in [place]. Scan this code on your smartphone or tablet or use the web address below. You can also ask your pharmacist for a printout. If you have any questions, please ask your pharmacist. The display and use of this drug information is subject to Terms of Use. Copyright(c) 2023 [employer]. ?? [employer]. All rights reserved. This information is not intended as a substitute for professional medical care. Always follow your healthcare professional's instructions. ?? * Izabel Cruz RN: PERFORM Event Display: Patient Education Leaflets Authored Date: [id number] Discharge Instructions for Stroke ?? 60195 Discharge Instructions for Stroke You have a high risk for a stroke, or??a TIA (transient ischemic attack).??During a stroke, blood stops flowing to part of your brain. This can damage areas in the brain that control other parts of the body. Symptoms from a stroke depend on which part of the brain has been affected. Stroke risk factors Once you???ve had a stroke, you???re at greater risk for another one. Listed below are some other factors that can raise your risk for a stroke: ??? High blood pressure ??? High cholesterol ??? Cigarette or cigar smoking ??? Diabetes ??? Carotid or other artery disease ??? Atrial fibrillation, atrial flutter,??or other heart disease ??? Not being physically active ??? Obesity ??? Certain blood disorders, such as sickle cell anemia ??? Drinking too much alcohol ??? Abusing street drugs ??? Race ??? Gender ??? Family history of stroke ??? Diet high in salty, fried, or greasy foods ?? Changes in daily living Doing??some everyday tasks may be hard after you???ve had a stroke. But you can learn new ways to manage. In fact, doing daily activities may help you to regain muscle strength. This can help your affected arm or leg work more normally. Be patient. Give yourself time to adjust. And appreciate the progress you make. ?? Daily activities You may be at risk of falling. Make changes to your home to help you walk more easily. A therapist will decide if you need an assistive device, such as a cane or walker, to walk safely. You may need to see an occupational therapist (OT). Or you may see a physical therapist (PT). Thesehealthcare providers can help you to learn new ways of doing things. For example, you may need to make changes in how you bathe or dress. You may also need a speech therapist. This is someone who helps you speak normally again and be able to swallow. Tips for showering or bathing ??? Test the water temperature with a hand or foot that was not affected by the stroke. ??? Use grab bars, a shower seat, a handheld showerhead, and a long- handled brush. ??? Use any other device as advised by your therapists. Tips for getting dressed ??? Dress while sitting, starting with the affected side or limb. ??? Wearshirts that pull easily over your head. Wear pants or skirts with elastic waistbands. ??? Use zippers with loops attached to the pull tabs. ?? Lifestyle changes ??? Take your medicines exactly as directed. Don???t skip doses. ??? Begin an exercise program. Askyour provider how to get started. Ask how much activity you should try to get every day or week. You can benefit from simple activities such as walking or gardening. ??? Limit how much alcohol you drink. ??? Control your cholesterol level. Follow your provider???s advice about how to do this. ??? If you are a smoker, quit now. Join a stop-smoking program to improve your chances of success. Ask your provider about medicines or other methods to help you quit. ??? Learn stress management methods. These can help you deal with stress in your home and work life. Diet Your healthcare provider will guide you on changes you may need to make to your diet. They may advise that you see a registered dietitian for help with changes. The changes can improve your cholesterol, blood pressure, and blood sugar. Changes may include: ??? Reducing the amount of fat and cholesterol you eat ??? Reducing the amount of salt (sodium) in your diet, especially if you have high blood pressure ??? Eating more vegetables and fruits ??? Eating more lean proteins, such as fish, poultry, and beans and peas (legumes) ??? Eating less red meat and processed meats ??? Using low-fat dairyproducts ??? Limiting vegetable oils and nut oils ??? Limiting sweets and processed foods such as ch ips, cookies, and baked goods ??? Not eating trans fats. These are often found in processed foods. Don't eat any food that has hydrogenated oils listed in its ingredients. ?? Follow-up care ??? Keep your medical appointments. Close follow-up is important to stroke rehabilitation and recovery. ??? Some medicines require blood tests to check for progress or problems. Keep follow-up appointments for any blood tests ordered by your providers. ?? Call 911 Call 911 right away??if you have any of the following symptoms of stroke: ??? Weakness, tingling, or loss of feeling on one side of your face or body ??? Sudden double vision or trouble seeing in one or both eyes ??? Sudden trouble talking or slurred speech ??? Trouble understanding others ??? Sudden, severe headache ??? Dizziness, loss of balance, or a sense of falling ??? Blackouts or seizures B.E. F.A.S.T. is an easy way to remember the signs of stroke. When you see these signs, you know that you need to call 911 fast. Aly.E. F.A.S.T. stands for: ??? B is for balance. Sudden loss of balance or coordination. ??? E is for eyes. Vision changes in one or both eyes. ??? F is for face drooping. One side of the face is drooping or numb. When the person smiles, the smile is uneven. ??? A is for arm weakness. One arm is weak or numb. When the personlifts both arms at the same time, one arm may drift downward. ??? S is for speech difficulty. You may notice slurred speech or trouble speaking. The person can't repeat a simple sentence correctly when asked. ??? T is for time to call 911. If someone shows any of these symptoms, even if they go away, call 911 right away. Make note of the time the symptoms first appeared. ?? Last Reviewed Date: 2022 ?? 9373-2142 [employer]. All rights reserved. This information is not intended as a substitute for professional medical care. Always follow your healthcare professional's instructions. ?? * Hamida Elliott DO: PERFORM Event Display: Patient Education Leaflets Authored Date: [id number] Voriconazole Oral Tablet ?? [id number] Voriconazole Oral Tablet Brands: [employer] Uses For treating fungal infections. ?? Instructions Take the medicine on an empty stomach. Do not eat or drink for 1 hour after taking this medicine. This medicine will work best if you take it at about the same time every day. Space doses evenly to keep a steady amount of medicine in the body. Keep the medicine at room temperature. Avoid heat and direct light. Tell your doctor if you have severe or persistent sweating, diarrhea or vomiting. These can increase your risk of a serious side effect. This medicine can make you sensitive to the sun. Use sunscreen or protective clothing when in sun. If you forget to take a dose on time, take it as soon as you remember. If it is almost time for thenext dose, do not take the missed dose. Return to your normal schedule. Do not take 2 doses at one time. Drug interactions can change how medicines work or increase risk for side effects. Tell your healthcare providers about all medicines taken. Include prescription and hiof-fyp-iinwgxf medicines, vitamins, and herbal medicines. Speak with your doctor or pharmacist before starting or stopping any medicine. Tell your doctor if symptoms do not get better or if they get worse. Keep using this medicine for the full number of days that it is prescribed. Do not stop the medicine even if you start to feel better. It is very important that you follow your doctor's instructions for all blood tests. ?? Cautions Tell your doctor and pharmacist if you ever had an allergic reaction to a medicine. Some patients taking this medicine have experienced serious side effects. Please speak with your doctor to understand the risks and benefits associated with this medicine. Do not use the medication any more than instructed. This medicine may cause blurry vision or increased sensitivity to light. Avoid driving at night. Do not drink beverages with alcohol while on this medicine. Do not breastfeed while on this medicine. This medicine can cause defects. Speak with your doctor about control methods that should be used while on this medicine. Do not share this medicine with anyone who has not been prescribed this medicine. ?? Side Effects The following is a list of some common side effects from this medicine. Please speak with your doctor about what you should do if you experience these or other side effects. ??? headaches ??? nausea and vomiting ??? blurring or changes of vision Call your doctor or get medical help right away if you notice any of these more serious side effects: ??? bleeding or bruising ??? bone pain ??? dizziness ??? swelling of the legs, feet, and hands ??? pain in the eye ??? fainting ??? fever ??? hallucinations (unusual thoughts, seeing or hearing things that are not real) ??? fast or irregular heart beats ??? pain in the joints ??? signs of kidney damage (such as change in urine color or bubbly urine) ??? sensitivity to light ??? signs of liver damage (such as yellowing of eye or skin, dark urine, or unusual tiredness) ??? mood changes ??? red, peeling or blistering skin ??? change in the size or color of a skin mole ??? swelling in the neck orthroat ??? vision problems - changes in seeing color ??? severe or persistent vomiting A few people may have an allergic reaction to this medicine. Symptoms can include difficulty breathing, skin rash, itching, swelling, or severe dizziness. If you notice any of these symptoms, seek medical help quickly. ?? Extra Please speak with your doctor, nurse, or pharmacist if you have any questions about this medicine. ?? [email or web address] IMPORTANT NOTE: This document tells you briefly how to take your medicine, but it does not tell youall there is to know about it. Your doctor or pharmacist may give you other documents about your medicine. Please talk to them if you have any questions. Always follow their advice. There is a more complete description of this medicine available in [place]. Scan this code on your smartphone or tablet or use the web address below. You can also ask your pharmacist for a printout. If you have any questions, please ask your pharmacist. The display and use of this drug information is subject to Terms of Use. Copyright(c) 2023 [employer]. ?? [employer]. All rights reserved. This information is not intended as a substitute for professional medical care. Always follow your healthcare professional's instructions. ?? Patient Care team information Care Team Personnel Name: Katelin Mcfadden RN Position: [facility] RN Member Role: Primary Care Nurse Name: Jude Mejia Position: [facility] RN Shauna Member Role: Primary Care Nurse Name: Kemi Henry RN Position: [facility] Onco RN Member Role: Primary Care Nurse Name: Robert Arechiga RN Position: [facility] RN Member Role: Primary Care Nurse Name: Sienna Merida RN Position: [facility] Onco RN Member Role: Primary Care Nurse Name: Not on Staff, PCP Position: [facility] Physician (General Medicine) Member Role: PCP Name: Zoila Segundo RN Position: [facility] ALEXYS Nurse Member Role: Primary Care Nurse Name: Izabel Cruz RN Position: [facility] RN Member Role: Primary Care Nurse Name: Betty Gomez RN Position: [facility] SN RN Member Role: Primary Care Nurse Name: Cabrera Peraza RN Position: [facility] RN Member Role: Primary Care Nurse Name: Mitzi Blue RN Position: [facility] Onco RN Member Role: Primary Care Nurse Name: Radha Gunn RN Position: [facility] RN Member Role: Primary Care Nurse Care Team Related Persons Name: JERI DEALN Name: REGI LAZAR Name: HELIO MOORE Address: home [address], [place] Name: CINTHYA LANG Address: home [address] [place], [place] Name: SAIMA PERDUE Address: home [address] [place], [place] Name: SAIMA BORGES Address: home [address] [place] [address] [address] [place] [address]
--- OUTSIDE RECORDS SUMMARY | 2024-05-25 15:15 | XMS_ITS | Continuity of Care Document ---
Author Organization [facility] Address [address] [place] [address]- Care Team Providers Care Global Professional Name Role Phone Mark MENDOZA, Jennifer Darnell Primary Care Physician [place] [facility] [place](s): 12/24/20 - 01/23/21 [facility] [address] [place], [place] [address] Attending Physician: Tatyana Noyola Admitting Physician: AdmtrTatyana Referring Physician: AdmtrTatyana Allergies, Adverse Reactions, Alerts Substance Reaction Severity [...] 07/07/20 13:21:00 EST, Route to Pharmacy Electronically, [facility] #[id number], 155, cm, 07/07/20 13:19:00 EST, Height, 39.6, kg, 06/03/20 17:24:00 EDT, Dry... Start Date: 07/07/20 Stop Date: 01/03/21 Status: Ordered Plavix 75 mg oral tablet 75 mg, 1, tablet, By Mouth, Daily, # 30 tablet, Refills 5, Tot. Refills 5, Maintenance, 12/16/20 14:13:00 EDT, Route to Pharmacy Electronically, [facility] #[id number], 155, cm, 07/07/20 13:19:00 EST, Height, 39.6, [...]
--- OUTSIDE RECORDS SUMMARY | 2024-05-25 15:15 | XMS_ITS | Continuity of Care Document ---
Author Organization [facility] Address [address] [place] [address]- Care Team Providers Care Aircraft Instrument Tester Name Role Phone Mark MENDOZA, Jennifer Darnell Primary Care Physician [place] [facility] [place] 02/03/20 [facility] [address] [place] [address]- [facility] Attending Physician: Kasandra Meza NP Admitting Physician: Derrick GARCÍA, Kasandra Banuelos Referring Physician: Jennifer Flores MD Allergies, Adverse [...] 04/07/10 20:16:32 Start Date: 04/07/10 Status: Ordered ProAir HFA 90 mcg/inh inhalation [...] Active Tobacco smoking behavior - finding(Confirmed) Active Social History Social History Type Response Smoking Status Former smoker entered on: 10/28/16 Sex
--- OUTSIDE RECORDS SUMMARY | 2024-05-25 15:15 | XMS_ITS | Continuity of Care Document ---
Author Organization [facility] Address [address] [place] [address]- Care Team Providers Care Parts Sales Advisor Name Role Phone Mark MENDOZA, Jennifer Darnell Primary Care Physician [id number] Date(s): 02/26/24 - 05/08/24 [facility] [address] [place] [id number] Attending Physician: Emma Borges MD Admitting Physician: Emma Borges MD Referring Physician: Jennifer Flores MD Allergies, [...] tablet, 0 Refills, Maintenance, 01/29/24 14:25:00 EDT, [facility]/pharmacy #[id number], Partial fill upon patient request, 155, cm, 01/16/24 6:10:00 EDT, Height... Start Date: 01/29/24 Status: Ordered lactulose 10 gm/15 ml oral syrup 15 mL = 10 Gm, By Mouth, Daily, PRN as needed for constipation, # 1,350 mL, 0 Refills, Maintenance,03/07/24 12:06:00 EDT, Syrup, [facility]/pharmacy #[id number], Partial fill upon patient request if the prescription is for a schedule II opioid drug., 15 mL By Adry... Start Date: 03/07/24 Status: Ordered lidocaine-prilocaine 2.5%-2.5% topical cream See Instructions, apply small dollop [facility] hr prior to appt and cover with plastic, #30 Gm, 1 Refills, Maintenance, 01/29/24 14:24:00 EDT, Cream, [facility]/pharmacy #[id number], Partial fill upon patient request if the prescription is for a schedul... Start Date: 01/29/24 Status: Ordered Nicoderm C-Q Clear 21 mg/24 hr transdermal film, extended release 1 patch, Topically, Daily, # 30 patch, 0 Refills, Maintenance, 02/25/24 9:47:00 EDT, Patch, [facility], Partial fill upon patient request if the prescription is for a schedule II opioiddrug., 150, cm, 02/25/24 8:49:00 EDT, Height, 32.5,... Start Date: 02/25/24 Status: Ordered olanzapine 2.5 mg oral tablet 1, tablet, By Mouth, Daily at bedtime, DIRECTED., # 18 tablet, Refills 0, Maintenance, 02/19/24 8:02:00 EDT, Route to Pharmacy Electronically, [id number], 150.8, cm, 02/13/24 15:23:00 EDT, Height, 33.6, kg, 02/13/24 15:23:00 EDT, Dry Weight Start Date: 02/19/24 Status: Ordered ondansetron 8 mg oral tablet 1 tablet = 8 mg, By Mouth, Every 8 hours, PRN as needed for nausea/vomiting, # 30 tablet, 1 Refills, Maintenance, 01/29/24 14:24:00 EDT, Tablet, [facility]/pharmacy #[id number], Partial fill upon patient request if the prescription is for a schedule II opioid drug... Start Date: 01/29/24 Status: Ordered oxyCODONE 5 mg/5 mL oral solution 5 mL = 5 mg, By Mouth, Every 8 hours, # 105 mL, 0 Refills, Maintenance, 02/20/24 21:30:00 EDT, Solution, [facility], Partial fill upon patient request [...] 06/24/24 9:41:00 EST, 02/25/24 9:41:00 EDT, Tablet, [facility], Partial fill upon patient request [...] 0 Refills, Maintenance, 03/15/24 11:40:00 EDT, Tablet, [facility]/pharmacy #[id number], Partial fill upon patient [...] Active Weakness of right arm Confirmed Active Social History Social History Type Response Smoking Status 10 or more cigarette s (1/2 pack or more)/day in last 30 days; Interested in cessation: No; Patient wants NRT during admission No entered on: 04/09/24 Sex Patient Care team information Care Team Personnel Name: Caitlyn Orellana RN Position: [facility] RN Member Role: Primary Care Nurse Name: Jazlyn Marquez RN Position: [facility] Supv Member Role: Primary Care Nurse Name: Katelin Mcfadden RN Position: [facility] RN Member Role: Primary Care Nurse Name: Jude Mejia Position: [facility] RN Supv Member Role: Primary Care Nurse Name: Jennifer Flores MD Position: Reference Physician Member Role: PCP Address: Address: [address] [place], [place] - Name: Kemi Carpenter RN Position: [facility] RN Member Role: Primary Care Nurse Name: Zaida Gaspar RN Position: [facility] RN Member Role: Primary Care Nurse Name: Kemi Henry RN Position: [facility] Onco RN Member Role: Primary Care Nurse Name: Robert Arechiga RN Position: [facility] RN Member Role: Primary Care Nurse Name: Sienna Merida RN Position: [facility] Onco RN Member Role: Primary Care Nurse Name: Baltazar Villar RN Position: [facility] RN Member Role: Primary Care Nurse Name: Zoila Segundo RN Position: [facility] AMB Nurse Member Role: Primary Care Nurse Name: Izabel Cruz RN Position: [facility] RN Member Role: Primary Care Nurse Name: Betty Gomez RN Position: [facility] SN RN Member Role: Primary Care Nurse Name: Katy Jay RN Position: [facility] RN Member Role: Primary Care Nurse Name: Sarah Hammonds RN Position: [facility] Onco RN Member Role: Primary Care Nurse Name: Cabrera Peraza RN Position: [facility] RN Member Role: Primary Care Nurse Name: Garfield Chow RN Position: [facility] RN Member Role: Primary Care Nurse Name: Mitzi Blue RN Position: [facility] Onco RN Member Role: Primary Care Nurse Name: Ananda Pruitt RN Position: [facility] RN Member Role: Primary Care Nurse Name: Radha Gunn RN Position: [facility] RN Member Role: Primary Care Nurse Care Team Related Persons Name: CONI DEAL Name: REGI LAZAR Name: HELIO MOORE Address: home [address] [place], [place] Name: CINTHYA LANG Address: home [address] [place], [place] Name: SAIMA PERDUE Address: home [address] [place], [place] Name: SAIMA BORGES Address: home [address] [place], [place]
--- OUTSIDE RECORDS SUMMARY | 2024-05-25 15:15 | XMS_ITS | Continuity of Care Document ---
Author Organization [facility] Address [address] [place] [address]- Care Team Providers Care Computer Aide Name Role Phone Mark MENDOZA, Jennifer Darnell Primary Care Physician Encounter [facility] [place] Date(s): 07/11/20 - 12/03/20 [facility] [address] [place], [place] [address] Attending Physician: Uli GARCÍA, Saba Tripp Admitting Physician: Uli GARCÍA, Saba Tripp Referring Physician: Jennifer Flores MD Allergies, Adverse [...] 07/07/20 13:21:00 EST, Route to Pharmacy Electronically, [facility] #[id number], 155, cm, 07/07/20 13:19:00 EST, Height, 39.6, [...]
--- OUTSIDE RECORDS SUMMARY | 2024-05-25 15:15 | XMS_ITS | Continuity of Care Document ---
Author Organization [facility] Address [address] [place] [address]- Care Team Providers Care Welcome Wagon Hostess Name Role Phone Mark MENDOZA, Jennifer Darnell Primary Care Physician [place] [facility] [place] 08/25/22 - 09/01/22 [facility] [address] [place], [place] [address] Attending Physician: Uli GARCÍA, Saba Tripp Admitting Physician: Uli GARCÍA, Saba Tripp Referring Physician: Jennifer Flores MD Allergies, Adverse Reactions, Alerts Substance Reaction Severity Status Darvon difficulty breathing Active doxycycline vomiting Active aspirin 1, 2 n/v Active hydrochlorothiazide unknown Active Tylenol Nauseated Active 1pt states able to tolerate 81mg [...] tablet, Refills 1, Route to Pharmacy Electronically, [id number], 155, cm, 12/03/21 8:45:00 EDT, Height, 39.6, [...] 07/07/20 13:21:00 EST, Route to Pharmacy Electronically, [facility] #[id number], 155, cm, 07/07/20 13:19:00 EST, Height, 39.6, kg, 06/03/20 17:24:00 EDT, Dry... Start Date: 07/07/20 Stop Date: 01/03/21 Status: Ordered ProAir HFA 90 mcg/inh inhalation aerosol with adapter 2, puffs, Inhalation, 4 times a day, Scheduled / PRN, 1, each, , 11, 10/09/08 10:34:02, as neededfor wheezing, Print [...] day sm susannah entered on: 01/26/15 Sex Note * Shaun Alexander: PERFORM, SIGN, VERIFY Event Display: Patient Education/Instruction Authored Date: [id number] [facility] *[facility] [address] Clinical Summary Name KIM VEGA Age 62 Years 1960 PCP Mark MENDOZA , Jennifer Darnell PCP Visit Date 08/25/2022 07:07:00 Additional Instructions: Scheduled Appointments?? Future Appointments ?No Future Appointments Scheduled Follow-Up Instructions ?? Diagnosis Medications: Please continue your medications until treatment is completed or stopped by your provider. Discuss any questions related to medications with your provider. Medications to Continue with No Changes These medications were not printed or sent to your pharmacy Acetaminophen (Tylenol 8 HR Arthritis Pain 650 mg oral tablet, extended release) 2 tab(s) Oral every 8 hours as needed as needed for pain. Next Dose: Albuterol (albuterol 0.083% inhalation solution) 3 Milliliter Inhalation every 6 hours as needed for wheezing. Next Dose: Albuterol (ProAir HFA 90 mcg/inh inhalation aerosol with adapter) 2 puff(s) Inhalation 4 times a day as needed as needed for wheezing. Refills: 11. Next Dose: Budesonide-Formoterol (Symbicort 80mcg/4.5mcg Inhaler) 2 puff(s) Inhalation twice a day. Next Dose: Clopidogrel (clopidogrel 75 mg oral tablet) 1 tab(s) Oral Daily. Refills: 1. Next Dose: Clopidogrel (Plavix 75 mg oral tablet) 1 tab(s) Oral Daily for 30 Days. Refills: 5. Next Dose: Durable Medical Equipment (Cane) 1 each. Refills: 0. Next Dose: Ferrous Sulfate (Ferrous Sulfate EC) Next Dose: Pantoprazole (pantoprazole 40 mg oral delayed release tablet) Next Dose: Ropinirole (rOPINIRole 0.5 mg oral tablet) 2 tab(s) Oral Daily at Bedtime. Next Dose: Allergy Info:?? Darvon; Tylenol; hydrochlorothiazide; aspirin; doxycycline Medications Given This Visit Future Orders ?No future orders Vital Signs Height Weight BMI Blood Pressure / Temperature Pulse Rate Respiratory Rate 02 Sat Mode of Delivery / You can now view a summary of your hospital visit from the comfort of your home through a free online portal called [employer]. [employer] is a website that allows you to securely view your medical information including discharge summary, medications and follow-up visits. ??You can alsosend a secure electronic message to your doctor???s office to request appointments, renew medications or just ask a question. You can enroll at [email or web address] or register during your next office visit. Disclaimer:?? The information provided is of a general nature and is intended to be used in conjunction with the recommendations and advice of your health care practitioner. ??Every effort has been made to ensure that the information provided is accurate and complete at the time it is provided to you however, as your needs change, or, as new ??information becomes available, different or additional instructions may be required. If you have questions, please consult with your primary care provider or pharmacist, as appropriate. ??This information is not intended to serve as substitution for assessment and evaluation by a qualified health care provider. If you do not have a primary care provider, you may find a [facility] provider by calling [facility] at [phone]. For information about the plan of care including goals and instructions for your diagnosis, please see the patient education orders section of this document. Patient Education Materials?? The content of this educational material or handout may have been modified, supplemented, or adapted from its original content and format to support your individualized medical care. Patient Care team information Care Team Personnel Name: Katelin Mcfadden RN Position: S RN Member Role: Primary Care Nurse Name: Mark MENDOZA , Jennifer Darnell Position: Reference Physician Member Role: PCP Address: Address: [address] [place], [place] - Name: Robert Arechiga RN Position: S RN Member Role: Primary Care Nurse Name: Zoila Segundo RN Position: S RN Member Role: Primary Care Nurse Name: Betty Gomez RN Position: [facility] RN Member Role: Primary Care Nurse Care Team Related Persons Name: CONI DEAL Name: HELIO MOORE Address: home [address] [place], [place] Name: CINTHYA LANG Address: home [address] [place], [place] Name: MICK ALARCON Address: home [address] [place], [place] Name: SAIMA PERDUE Address: home [address] [place], [place] Name: SAIMA REYEZ Address: home [address] [place], [place]
--- OUTSIDE RECORDS SUMMARY | 2024-05-25 15:15 | XMS_ITS | Continuity of Care Document ---
Author Organization [facility] Address [address] [place] [address]- Care Team Providers Care Private Branch Exchange Installer Name Role Phone Mark MENDOZA, Jennifer Darnell Primary Care Physician Encounter [facility] [place] Date(s): 01/07/22 - 02/06/22 [facility] [address] [place] [address]- Allergies, Adverse Reactions, Alerts Substance Reaction Severity [...] tablet, Refills 1, Route to Pharmacy Electronically, [id number], 155, cm, 12/03/21 8:45:00 EDT, Height, 39.6, [...] 07/07/20 13:21:00 EST, Route to Pharmacy Electronically, [facility] #[id number], 155, cm, 07/07/20 13:19:00 EST, Height, 39.6, [...] colon, s/ p polypectomy(Confirmed) Active Underweight(Confirmed) Active Social History Social History Type Response Smoking Status Current every day yissel davalos entered on: 01/26/15 Sex
--- OUTSIDE RECORDS SUMMARY | 2024-05-25 15:15 | XMS_ITS | Continuity of Care Document ---
Author Organization [facility] Address [address] [place] [address]- Care Team Providers Care Car Repair Supervisor Name Role Phone Mark MENDOZA, Jennifer Darnell Primary Care Physician [place] [facility] [place] 02/20/23 - 04/15/23 [facility] [address] [place], [place] [address] Attending Physician: Uli GARCÍA, Saba Tripp Admitting Physician: Uli GARCÍA, Saba Tripp Referring Physician: Uli GARCÍA, Saba Tripp Allergies, Adverse Reactions, Alerts Substance Reaction Severity [...] 11/14/22 7:49:00 EDT, Route to Pharmacy Electronically, [id number], 154.94, cm, 02/18/22 8:56:00 EDT, Height, 43.1, [...] 07/07/20 13:21:00 EST, Route to Pharmacy Electronically, [facility] #[id number], 155, cm, 07/07/20 13:19:00 EST, Height, 39.6, [...] Physician Member Role: PCP Address: Address: [address] [place], [place] - Name: Robert Arechiga RN Position: S RN Member Role: Primary Care Nurse Name: Zoila Segundo RN Position: [facility] RN Member Role: Primary Care Nurse Name: Betty Gomez RN Position: [facility] SN RN Member Role: Primary Care Nurse Care Team Related Persons Name: CONI DEAL Name: HELIO MOORE Address: home [address] [place], [place] Name: CINTHYA LANG Address: home [address] [place], [place] Name: MICK ALARCON Address: home [address] [place], [place] Name: SAIMA PERDUE Address: [address] [place], [place] Name: SAIMA REYEZ Address: [address] [place], [place]
--- OUTSIDE RECORDS SUMMARY | 2024-05-25 15:15 | XMS_ITS | Continuity of Care Document ---
Author Organization [facility] Address [address] [place] [address]- Care Team Providers Care Sand Car Worker Name Role Phone Mark MENDOZA, Jennifer Darnell Primary Care Physician Encounter [facility] [place] Date(s): 03/13/20 - 04/12/20 [facility] [address] [place] [address]- [facility] Attending Physician: AdmTatyana fowler Admitting Physician: Admtr, Tatyana Referring Physician: Admtr, Ar8 Allergies, Adverse Reactions, [...]
--- OUTSIDE RECORDS SUMMARY | 2024-05-25 15:15 | XMS_ITS | Continuity of Care Document ---
Author Organization [facility] Address [address] [place] [address]- Care Team Providers Care Sifter And Miller Name Role Phone Mark MENDOZA, Jennifer Darnell Primary Care Physician Encounter [facility] [place] Date(s): 04/08/24 - 05/08/24 [facility] [address] [place] [address]- Attending Physician: Admtr, [id number] Admitting Physician: Admtr, Ar8 Referring Physician: Admtr, [...] tablet, 0 Refills, Maintenance, 01/29/24 14:25:00 EDT, [facility]/pharmacy #[id number], Partial fill upon patient request, 155, cm, 01/16/24 6:10:00 EDT, Height... Start Date: 01/29/24 Status: Ordered lactulose 10 gm/15 ml oral syrup 15 mL = 10 Gm, By Mouth, Daily, PRN as needed for constipation, # 1,350 mL, 0 Refills, Maintenance,03/07/24 12:06:00 EDT, Syrup, [facility]/pharmacy #[id number], Partial fill upon patient request if the prescription is for a schedule II opioid drug., 15 mL By Adry... Start Date: 03/07/24 Status: Ordered lidocaine-prilocaine 2.5%-2.5% topical cream See Instructions, apply small dollop to [facility] 1 hr prior to appt and cover with plastic, #30 Gm, 1 Refills, Maintenance, 01/29/24 14:24:00 EDT, Cream, [facility]/pharmacy #[id number], Partial fill upon patient request if the prescription is for a schedul... Start Date: 01/29/24 Status: Ordered Nicoderm C-Q Clear 21 mg/24 hr transdermal film, extended release 1 patch, Topically, Daily, # 30 patch, 0 Refills, Maintenance, 02/25/24 9:47:00 EDT, Patch, [facility], Partial fill upon patient request if the prescription is for a schedule II opioiddrug., 150, cm, 02/25/24 8:49:00 EDT, Height, 32.5,... Start Date: 02/25/24 Status: Ordered olanzapine 2.5 mg oral tablet 1, tablet, By Mouth, Daily at bedtime, DIRECTED., # 18 tablet, Refills 0, Maintenance, 02/19/24 8:02:00 EDT, Route to Pharmacy Electronically, [facility] [id number], 150.8, cm, 02/13/24 15:23:00 EDT, Height, 33.6, kg, 02/13/24 15:23:00 EDT, Dry Weight Start Date: 02/19/24 Status: Ordered ondansetron 8 mg oral tablet 1 tablet = 8 mg, By Mouth, Every 8 hours, PRN as needed for nausea/vomiting, # 30 tablet, 1 Refills, Maintenance, 01/29/24 14:24:00 EDT, Tablet, [facility]/pharmacy #[id number], Partial fill upon patient request if the prescription is for a schedule II opioid drug... Start Date: 01/29/24 Status: Ordered oxyCODONE 5 mg/5 mL oral solution 5 mL = 5 mg, By Mouth, Every 8 hours, # 105 mL, 0 Refills, Maintenance, 02/20/24 21:30:00 EDT, Solution, [facility], Partial fill upon patient [...] 06/24/24 9:41:00 EST, 02/25/24 9:41:00 EDT, Tablet, [facility], Partial fill upon patient [...] 0 Refills, Maintenance, 03/15/24 11:40:00 EDT, Tablet, [facility]/pharmacy #[id number], Partial fill upon patient request if [...] Team Personnel Name: Caitlyn Orellana RN Position: S RN Member Role: Primary Care Nurse Name: Jazlyn Marquez RN Position: [facility] RN Supv Member Role: Primary Care Nurse Name: Katelin Mcfadden RN Position: S RN Member Role: Primary Care Nurse Name: Jude Mejia Position: [facility] RN Supv Member Role: Primary Care Nurse Name: Jennifer Flores MD Position: Reference Physician Member Role: PCP Address: Address: [address] [place], [place] - Name: Kemi Carpenter RN Position: [facility] RN Member Role: Primary Care Nurse Name: Zaida Gaspar RN Position: [facility] RN Member Role: Primary Care Nurse Name: Kemi Henry RN Position: [facility] Onco RN Member Role: Primary Care Nurse Name: Robert Arechiga RN Position: [facility] RN Member Role: Primary Care Nurse Name: Sienna Merida RN Position: [facility] Onco RN Member Role: Primary Care Nurse Name: Baltazar Villar RN Position: [facility] RN Member Role: Primary Care Nurse Name: Zoila Segundo RN Position: [facility] AMB Nurse Member Role: Primary Care Nurse Name: Izabel Cruz RN Position: [facility] RN Member Role: Primary Care Nurse Name: Betty Gomez RN Position: [facility] SN RN Member Role: Primary Care Nurse Name: Katy Jya RN Position: [facility] RN Member Role: Primary Care Nurse Name: Sarah Hammonds RN Position: [facility] Onco RN Member Role: Primary Care Nurse Name: Cabrera Peraza RN Position: [facility] RN Member Role: Primary Care Nurse Name: Garfield Chow RN Position: [facility] RN Member Role: Primary Care Nurse Name: Mitzi Blue RN Position: [facility] Onco RN Member Role: Primary Care Nurse Name: Ananda Pruitt RN Position: [facility] RN Member Role: Primary Care Nurse Name: Radha Gunn RN Position: [facility] RN Member Role: Primary Care Nurse Care Team Related Persons Name: CONI DEAL Name: REGI LAZAR Name: HELIO MOORE Address: home [address] [place], [place] Name: CINTHYA LANG Address: home [address] [place], [place] Name: SAIMA PERDUE Address: home [address] [place], [place] Name: SAIMA REYEZ Address: home [address] [place], [place]
--- OUTSIDE RECORDS SUMMARY | 2024-05-25 15:16 | XMS_ITS | Continuity of Care Document ---
Author Organization [facility] Address [address] [place] [address]- Care Team Providers Care Sap Technical Architect Name Role Phone Mark MENDOZA, Jennifer Darnell Primary Care Physician Encounter [facility] [place] Date(s): 10/29/20 - 11/28/20 [facility] [address] [place], [place] [address] Allergies, Adverse Reactions, Alerts Substance Reaction Severity [...] 07/07/20 13:21:00 EST, Route to Pharmacy Electronically, [facility] #[id number], 155, cm, 07/07/20 13:19:00 EST, Height, 39.6, [...]
--- OUTSIDE RECORDS SUMMARY | 2024-05-25 15:16 | XMS_ITS | Continuity of Care Document ---
Author Organization [facility] Address [address] [place] [address]- Care Team Providers Care Geophysical Laboratory Supervisor Name Role Phone Mark MENDOZA, Jennifer Darnell Primary Care Physician Encounter [facility] [place] Date(s): 10/29/20 - 01/20/21 [facility] [address] [place], [place] [address] Attending Physician: Uli GARCÍA, Saba Tripp Admitting Physician: Uli GARCÍA, Saba Tripp Referring Physician: Jennifer Flores MD Allergies, Adverse Reactions, Alerts Substance Reaction Severity Status doxycycline vomiting Active hydrochlorothiazide unknown Active aspirin 1, 2 Active Tylenol Nauseated Active Darvon Active 1pt [...] 07/07/20 13:21:00 EST, Route to Pharmacy Electronically, [facility] #[id number], 155, cm, 07/07/20 13:19:00 EST, Height, 39.6, kg, 06/03/20 17:24:00 EDT, Dry... Start Date: 07/07/20 Stop Date: 01/03/21 Status: Ordered Plavix 75 mg oral tablet 75 mg, 1, tablet, By Mouth, Daily, # 30 tablet, Refills 5, Tot. Refills 5, Maintenance, 12/16/20 14:13:00 EDT, Route to Pharmacy Electronically, [facility] #[id number], 155, cm, 07/07/20 13:19:00 EST, Height, 39.6, [...]
--- OUTSIDE RECORDS SUMMARY | 2024-05-25 15:16 | XMS_ITS | Continuity of Care Document ---
Author Organization [facility] Address [address] [place] [address]- Care Team Providers Care Rework Machine Operator Name Role Phone Mark MENDOZA, Jennifer Darnell Primary Care Physician En[place] [facility] [place] Date(s): 10/18/19 - 10/28/19 [facility] [address] [place] [address]- [facility] Attending Physician: Admtr, Tatyana Admitting Physician: AdmtrTatyana Referring Physician: Admtr, Ar8 Allergies, Adverse Reactions, [...]
--- OUTSIDE RECORDS SUMMARY | 2024-05-25 15:16 | XMS_ITS | Continuity of Care Document ---
Author Organization [facility] Address [address] [place] [address]- Care Team Providers Care Clerical Production Worker Name Role Phone Mark MENDOZA, Jennifer Darnell Primary Care Physician Encounter [facility] [place] Date(s): 01/15/24 - 02/14/24 [facility] [address] [place] [address]- Attending Physician: Tatyana Noyola Admitting Physician: AdmtrTatyana Referring Physician: Admtr, Ar8 [...] drug. Start Date: 02/03/22 Status: Ordered Boost VHC 1 carton (chocolate preferred) Dx: Laryngeal carcinoma Boost VHC 1 carton (chocolate preferred) Dx: Laryngeal carcinoma, See Instructions, # 90 each, Refills 11, Tot. Refills 11, Maintenance, Pls d/c previous oral supplement orders. Begin Boost VHC 1 carton po (chocolate preferred) tid. Ht: 150.8cm Wt... Start Date: 01/30/24 Status: Ordered Cane See Instructions, # 1 each, Maintenance, 1 each, 04/07/10 20:16:32 Start Date: 04/07/10 Status: Ordered clopidogrel 75 mg oral tablet 1, tablet, By Mouth, Daily, # 90 tablet, Refills 1, Maintenance, 11/14/22 7:49:00 EDT, Route to Pharmacy Electronically, [facility] [id number], 154.94, cm, 02/18/22 8:56:00 EDT, Height, 43.1, kg, 02/18/22 8:56:00 EDT, Dry Weight Start Date: 11/14/22 Status: Ordered dexamethasone 4 mg oral tablet See Instructions, 1 tab (4mg) By Mouth once a day for 3 days as directed after chemo, with food, # 18 tablet, 0 Refills, Maintenance, 01/29/24 14:25:00 EDT, [facility]/pharmacy #[id number], Partial fill upon patient request, [...] 0 Refills, Maintenance, 02/13/24 15:56:00 EDT, Syrup, [facility]/pharmacy #[id number], Partial fill upon patient request if the prescription is for a schedule II opioid drug., 15 mL By Mouth... Start Date: 02/13/24 Status: Ordered lidocaine-prilocaine 2.5%-2.5% topical cream See Instructions, apply small dollop to [facility] 1 hr prior to appt and cover with plastic, #30 Gm, 1 Refills, Maintenance, 01/29/24 14:24:00 EDT, Cream, [facility]/pharmacy #[id number], Partial fill upon patient request [...] hours, # 105 mL, 0 Refills, Maintenance, 02/13/24 15:52:00 EDT, Solution, [id number], Partial fill upon patient request if the prescription is for a schedule IIopioid drug., 150.8, cm, 02/13/24 15:23:00 EDT, Hei... Start Date: 02/13/24 Status: Ordered pantoprazole 40 mg oral delayed release tablet 0 Refills, Maintenance, 12/03/21 8:46:00 EDT Start Date: 12/03/21 Status: Ordered Plavix 75 mg oral tablet 75 mg, 1, tablet, By Mouth, Daily, # 30 tablet, Refills 5, Tot. Refills 5, Maintenance, 07/07/20 13:21:00 EST, Route to Pharmacy Electronically, [facility] #[id number], 155, cm, 07/07/20 13:19:00 EST, Height, 39.6, [...] tablet, 1 Refills, Maintenance, 01/29/24 14:24:00 EDT, [facility]/pharmacy #[id number], Partial fill upon patient requestif [...] 0 Refills, Maintenance, 02/13/24 15:55:00 EDT, Syrup, [facility]/pharmacy #[id number], Partial fill upon patient request [...] 1 Refills, Maintenance, 02/12/24 13:55:00 EDT, Liquid, [facility]/pharmacy #[id number], Partial fill upon patient request [...] wants NRT during admission No entered on: 02/13/24 Sex Laboratory * Event Display: Non BH Lab Results Authored Date: Note * Elina Lynch: PERFORM, SIGN, VERIFY Event Display: Patient Education/Instruction Authored Date: [id number] [facility] [address] Clinical Summary Person Information Name KIM VEGA Age 51 Years 1960 12:00 AM PCP Yumi Abrams MD PCP Reason for Visit: Allergy Info: Aspirin Adult Low Strength; Darvon; Talwin; morphine; codeine Vital Signs Height Weight BMI Blood Pressure / Temperature Pulse Rate Respiratory Rate 02 Sat Mode of Delivery / Medication Information Albuterol (ProAir HFA 90 mcg/inh inhalation aerosol with adapter) 2 puffs, Inhalation, 4 times a day, As Needed, as needed for wheezing, Refills: 11 amiTRIPTYLINE (amitriptyline 25 mg oral tablet) 1 tablet, Oral, 3 times a day, Refills: 0 Aspirin (aspirin 81 mg oral enteric coated tablet) 1 tablet, Oral, Tomorrow, Refills: 11 Durable Medical Equipment (Cane) , See Instructions, 1 each Fluoxetine (Prozac 20 mg oral capsule) 1 capsule, Oral, Tomorrow, Refills: 5 Metoprolol (metoprolol 50 mg oral tablet) 1 tablet, Oral, twice a day, Refills: 0 Omeprazole (omeprazole 20 mg oral enteric coated tablet) 1 tablet, Oral, Tomorrow, Refills: 0 Problem List Date Problem 05/01/06 Hypertension 05/01/06 COPD - Chronic obstructive pulmonary disease 05/01/06 PVD - Peripheral vascular disease 05/01/06 Tobacco smoking behavior - finding 05/01/06 Acid reflux 05/01/06 Alcohol abuse 08/21/07 Osteoporosis If the following labs have been performed in the last year, the most recent result is displayed below. Diagnostic Results Lab Result Value Date Lead Hemoglobin A1C LDL HDL Triglycerides Total Cholesterol Disclaimer: The information provided is of a general nature and is intended to be used in conjunction with the recommendations and advice of your health care practitioner. Every effort has been made to ensure that the information provided is accurate and complete at the time it is provided to you however, as your needs change, or, as new information becomes available, different or additional instructions may be required. If you have questions, please consult with your primary care provider or pharmacist, as appropriate. This information is not intended to serve as substitution for assessment and evaluation by a qualified health care provider. If you do not have a primary care provider, you may find a [facility] provider by calling [facility] at [phone]. Patient Education Information Follow-up Details: Patient Education Material: Patient Care team information Care Team Personnel Name: Katelin Mcfadden RN Position: [facility] RN Member Role: Primary Care Nurse Name: Jennifer Flores MD Position: Reference Physician Member Role: PCP Address: Address: [address] [place], [place] - Name: Kemi Henry RN Position: [facility] Onco RN Member Role: Primary Care Nurse Name: Robert Arechiga RN Position: [facility] RN Member Role: Primary Care Nurse Name: Zoila Segundo RN Position: [facility] ALEXYS Nurse Member Role: Primary Care Nurse Name: Betty Gomez RN Position: [facility] RN Member Role: Primary Care Nurse Name: Cabrera Peraza RN Position: S RN Member Role: Primary Care Nurse Care Team Related Persons Name: CONI DEAL Name: REGI LAZAR Name: HELIO MOORE Address: home [address] [place], [place] Name: CINTHYA LANG Address: [address] [place] [address] Name: SAIMA PERDUE Address: home [address] [place] [address] [address] [place] [address] Name: SAIMA REYEZ Address: home [address] [place] [address] [address] [place] [address]
--- OUTSIDE RECORDS SUMMARY | 2024-05-25 15:16 | XMS_ITS | Continuity of Care Document ---
Author Organization [facility] Address [address] [place] [address]- Care Team Providers Care Grid Molder Name Role Phone Mark MENDOZA, Jennifer Darnell Primary Care Physician Encounter [facility] [place] Date(s): 12/14/20 - 01/13/21 [facility] [address] [place], [place] [address] Allergies, Adverse Reactions, Alerts Substance Reaction Severity [...] 07/07/20 13:21:00 EST, Route to Pharmacy Electronically, [facility] #[id number], 155, cm, 07/07/20 13:19:00 EST, Height, 39.6, kg, 06/03/20 17:24:00 EDT, Dry... Start Date: 07/07/20 Stop Date: 01/03/21 Status: Ordered Plavix 75 mg oral tablet 75 mg, 1, tablet, By Mouth, Daily, # 30 tablet, Refills 5, Tot. Refills 5, Maintenance, 12/16/20 14:13:00 EDT, Route to Pharmacy Electronically, [facility] #[id number], 155, cm, 07/07/20 13:19:00 EST, Height, 39.6, [...]
--- OUTSIDE RECORDS SUMMARY | 2024-05-25 15:16 | XMS_ITS | Continuity of Care Document ---
Author Organization [facility] Address [address] [place] [address]- Care Team Providers Care Bottler Name Role Phone Not on Staff, PCP Primary Care Physician Unavail able Encounter [facility] Date(s): 01/12/24 - 05/16/[address] [address] Attending Physician: Millicent Lorenzana MD Admitting Physician: Millicent Lorenzana MD Referring Physician: Millicent Lorenzana MD Allergies, Adverse Reactions, Alerts Substance Reaction [...] mL, 0 Refills, Maintenance,03/07/24 12:06:00 EDT, Syrup, [id number], Partial fill upon patient request if the prescription is for a schedule II opioid drug., 15 mL By Adry... Start Date: 03/07/24 Status: Ordered lidocaine-prilocaine 2.5%-2.5% topical cream See Instructions, apply small dollop to [facility] site 1 hr prior to appt and cover with plastic, #30 Gm, 1 Refills, Maintenance, 01/29/24 14:24:00 EDT, Cream, [id number], Partial fill upon patient request if the prescription is for a schedul... Start Date: 01/29/24 Status: Ordered Nicoderm C-Q Clear 21 mg/24 hr transdermal film, extended release 1 patch, Topically, Daily, # 30 patch, 0 Refills, Maintenance, 02/25/24 9:47:00 EDT, Patch, [facility], Partial fill upon patient request if the prescription is for a schedule II opioiddrug., 150, cm, 02/25/24 8:49:00 EDT, Height, 32.5,... Start Date: 02/25/24 Status: Ordered olanzapine 2.5 mg oral tablet 1, tablet, By Mouth, Daily at bedtime, DIRECTED., # 18 tablet, Refills 0, Maintenance, 02/19/24 8:02:00 EDT, Route to Pharmacy Electronically, [id number], 150.8, cm, 02/13/24 15:23:00 EDT, Height, 33.6, kg, 02/13/24 15:23:00 EDT, Dry Weight Start Date: 02/19/24 Status: Ordered ondansetron 8 mg oral tablet 1 tablet = 8 mg, By Mouth, Every 8 hours, PRN as needed for nausea/vomiting, # 30 tablet, 1 Refills, Maintenance, 01/29/24 14:24:00 EDT, Tablet, [facility][id number], Partial fill upon patient request if the prescription is for a schedule II opioid drug... Start Date: 01/29/24 Status: Ordered oxyCODONE 5 mg/5 mL oral solution 5 mL = 5 mg, By Mouth, Every 8 hours, # 105 mL, 0 Refills, Maintenance, 02/20/24 21:30:00 EDT, Solution, [facility], Partial fill upon patient request if the prescription is for a schedule II opioid drug., 150.8, cm, 02/20/24 15:38:00... Start Date: 02/20/24 Status: Ordered pantoprazole 40 mg oral delayed release tablet 1 tablet = 40 mg, By Mouth, Daily, # 30 tablet, 0 Refills, Maintenance, 05/16/24 4:58:00 EDT, EC Tablet Start Date: 05/16/24 Status: Ordered ProAir HFA 90 mcg/inh inhalation [...] 06/24/24 9:41:00 EST, 02/25/24 9:41:00 EDT, Tablet, [facility], Partial fill upon patient [...] 0 Refills, Maintenance, 03/15/24 11:40:00 EDT, Tablet, [facility][id number], Partial fill upon patient request if [...] Care team information Care Team Personnel Name: Shaye JIMENEZ, Radha Greenwood Position: [facility] RN Member Role: Primary Care Nurse Name: Caitlyn Orellana RN Position: [facility] RN Member Role: Primary Care Nurse Name: Jazlyn Marquez RN Position: [facility] RN Supv Member Role: Primary Care Nurse Name: Katelin Mcfadden RN Position: [facility] AMB Nurse Member Role: Primary Care Nurse Name: Jude Mejia Position: [facility] RN Supv Member Role: Primary Care Nurse Name: Kemi Carpenter RN Position: [facility] RN Member Role: Primary Care Nurse Name: Zaida Gaspar RN Position: [facility] RN Member Role: Primary Care Nurse Name: Kemi Henry RN Position: [facility] Onco RN Member Role: Primary Care Nurse Name: Robert Arechiga RN Position: [facility] RN Member Role: Primary Care Nurse Name: Sienna Merida RN Position: [facility] Onco RN Member Role: Primary Care Nurse Name: Baltazar Villar RN Position: [facility] RN Member Role: Primary Care Nurse Name: Not on Staff, PCP Position: [facility] Physician (General Medicine) Member Role: PCP Name: Zoila Segundo RN Position: [facility] AMB Nurse Member Role: Primary Care Nurse Name: Izabel Cruz RN Position: [facility] RN Member Role: Primary Care Nurse Name: Betty Gomez RN Position: [facility] SN RN Member Role: Primary Care Nurse Name: Katy Jay RN Position: [facility] RN Member Role: Primary Care Nurse Name: Sarah Hammonds RN Position: [facility] Onco RN Member Role: Primary Care Nurse Name: Cabrera Peraza RN Position: [facility] RN Member Role: Primary Care Nurse Name: Garfield Chow RN Position: [facility] RN Member Role: Primary Care Nurse Name: Mitzi Blue RN Position: [facility] Onco RN Member Role: Primary Care Nurse Name: Coleman Steiner RN Position: [facility] RN Member Role: Primary Care Nurse Name: Ananda Pruitt RN Position: [facility] RN Member Role: Primary Care Nurse Name: Radha Gunn RN Position: [facility] RN Member Role: Primary Care Nurse Care Team Related Persons Name: CONI DEAL Name: REGI LAZAR Name: HELIO MOORE Address: [address] Name: CNITHYA LANG Address: home [address] [place], [place] Name: SAIMA PERDUE Address: home [address] [place] [address] [address] [place], [place] Name: SAIMA REYEZ Address: [address] [place], [place]
--- OUTSIDE RECORDS SUMMARY | 2024-05-25 15:16 | XMS_ITS | Continuity of Care Document ---
Author Organization [facility] Address [address] [place] [address]- Care Team Providers Care Wire Mesh Knitter Name Role Phone Mark MENDOZA, Jennifer Darnell Primary Care Physician Encounter [facility] Date(s): 11/24/22 - 03/24/23 [facility] [address] [place], [place] [address] Attending Physician: Uli GARCÍA, Saba Tripp Admitting Physician: Uli GARCÍA, Saba Tripp Referring Physician: Uli GARCÍA, Saba Tripp Allergies, Adverse Reactions, Alerts Substance Reaction Severity Status Tylenol Nauseated Active Darvon difficulty breathing Active doxycycline vomiting Active aspirin 1, 2 n/v Active hydrochlorothiazide unknown Active 1pt states able [...] 11/14/22 7:49:00 EDT, Route to Pharmacy Electronically, [facility] 125[facility], 154.94, cm, 02/18/22 8:56:00 EDT, Height, 43.1, [...] 07/07/20 13:21:00 EST, Route to Pharmacy Electronically, [facility] #[id number], 155, cm, 07/07/20 13:19:00 EST, Height, 39.6, [...] Physician Member Role: PCP Address: Address: [address] [place] [address]- Name: Robert Arechiga RN Position: S RN Member Role: Primary Care Nurse Name: Betty Gomez RN Position: [facility] RN Member Role: Primary Care Nurse Care Team Related Persons Name: CONI DEAL Name: HELIO MOORE Address: home [address] [place], [place] Name: CINTHYA LANG Address: home [address] [place], [place] Name: MICK ALARCON Address: home [address] [place], [place] Name: SAIMA PERDUE Address: home [address] [place], [place] Name: SAIMA REYEZ Address: home [address] [place], [place]
--- OUTSIDE RECORDS SUMMARY | 2024-05-25 15:16 | XMS_ITS | Continuity of Care Document ---
Author Organization [facility] Address [address] [place] [address]- Care Team Providers Care Direct Sales Representative Name Role Phone Mark MENDOZA, Jennifer Darnell Primary Care Physician Encounter [facility] [place] [place] Date(s): 03/21/22 - 04/20/22 [facility] [address] [place] [address]- Allergies, Adverse Reactions, Alerts Substance Reaction Severity [...] tablet, Refills 1, Route to Pharmacy Electronically, [facility], 155, cm, 12/03/21 8:45:00 EDT, Height, 39.6, [...] 07/07/20 13:21:00 EST, Route to Pharmacy Electronically, [facility] #[id number], 155, cm, 07/07/20 13:19:00 EST, Height, 39.6, [...] day yissel davalos entered on: 01/26/15 Sex Care Team Personnel Name: Mark MENDOZA , Jennifer Darnell Address: [address] [place] [address]-
--- OUTSIDE RECORDS SUMMARY | 2024-05-25 15:16 | XMS_ITS | Continuity of Care Document ---
Author Organization [facility] Address [address] [place] [address]- Care Team Providers Care Infectious Disease Technician Name Role Phone Mark MENDOZA, Jennifer Darnell Primary Care Physician Encounter [facility] [place] Date(s): 12/24/20 - 12/31/20 [facility] [address] [place], [place] [address] Attending Physician: Uli GARCÍA, Saba Tripp [...] 07/07/20 13:21:00 EST, Route to Pharmacy Electronically, [facility] #[id number], 155, cm, 07/07/20 13:19:00 EST, Height, 39.6, kg, 06/03/20 17:24:00 EDT, Dry... Start Date: 07/07/20 Stop Date: 01/03/21 Status: Ordered Plavix 75 mg oral tablet 75 mg, 1, tablet, By Mouth, Daily, # 30 tablet, Refills 5, Tot. Refills 5, Maintenance, 12/16/20 14:13:00 EDT, Route to Pharmacy Electronically, [facility] #[id number], 155, cm, 07/07/20 13:19:00 EST, Height, 39.6, [...]
--- OUTSIDE RECORDS SUMMARY | 2024-05-25 15:16 | XMS_ITS | Continuity of Care Document ---
Author Organization [facility] Address [address] [place] [address]- Care Team Providers Care Conciliation Court Judge Name Role Phone Mark MENDOZA, Jennifer Darnell Primary Care Physician Encounter [id number] Date(s): 11/06/23 - 12/06/23 [facility] [address] [place] [address] Attending Physician: Admmalcolm, Tatyana Admitting Physician: Admtr, Ar8 Referring Physician: Admtr, Ar8 Allergies, Adverse Reactions, Alerts Substance Reaction Severity Status doxycycline vomiting Active Darvon difficulty breathing Active aspirin 1, 2 n/v Active hydrochlorothiazide [...] 11/14/22 7:49:00 EDT, Route to Pharmacy Electronically, [facility] 98650, 154.94, cm, 02/18/22 8:56:00 EDT, Height, 43.1, [...] 07/07/20 13:21:00 EST, Route to Pharmacy Electronically, [facility] #[id number], 155, cm, 07/07/20 13:19:00 EST, Height, 39.6, [...] Team Personnel Name: Katelin Mcfadden RN Position: [facility] RN Member Role: Primary Care Nurse Name: Mark MENDOZA , Jennifer Darnell Position: Reference Physician Member Role: PCP Address: Address: [address] [place] [address]- Name: Robert Arechiga RN Position: [facility] RN Member Role: Primary Care Nurse Name: Zoila Segundo RN Position: [facility] AMB Nurse Member Role: Primary Care Nurse Name: Betty Gomez RN Position: [facility] RN Member Role: Primary Care Nurse Care Team Related Persons Name: CONI DEAL Name: HELIO MOORE Address: home [address] [place], [place] Name: CINTHYA LANG Address: home [address] [place], [place] Name: MICK ALARCON Address: home [address] [place], [place] Name: SAIMA PERDUE Address: [address] [place], [place] Name: SAIMA REYEZ Address: [address] [place], [place]
--- OUTSIDE RECORDS SUMMARY | 2024-05-25 15:16 | XMS_ITS | Continuity of Care Document ---
Author Organization [facility] Address [address] [place] [address]- Care Team Providers Care Curriculum Coach Name Role Phone Mark MENDOZA, Jennifer Darnell Primary Care Physician [place] [facility] [place] [id number] Date(s): 11/26/21 - 12/26/21 [facility] [address] [place], [place] [address] Attending Physician: Admtr, Tatyana Admitting Physician: Admtr, Ar8 Referring Physician: Admtr, Ar8 Allergies, Adverse Reactions, Alerts Substance Reaction Severity Status doxycycline vomiting Active aspirin 1, 2 Active hydrochlorothiazide unknown Active Tylenol Nauseated Active Darvon Active 1pt states able to tolerate 81mg , 325mg unable to tolerate causes nausea/ vomiting 2Patient had vomiting with 325 mg aspirin but has been able to take 81 mg Medications Cane See Instructions, # 1 each, Maintenance, 1 each, 04/07/10 20:16:32 Start Date: 04/07/10 Status: Ordered clopidogrel 75 mg oral tablet 1, tablet, By Mouth, Daily, # 90 tablet, Refills 1, Route to Pharmacy Electronically, [facility], 155, cm, 12/03/21 8:45:00 EDT, Height, 39.6, kg, 06/03/20 17:24:00 EDT, Dry Weight Start Date: 12/09/21 Status: Ordered pantoprazole 40 mg oral delayed release tablet 0 Refills, Maintenance, 12/03/21 8:46:00 EDT Start Date: 12/03/21 Status: Ordered Plavix 75 mg oral tablet 75 mg, 1, tablet, By Mouth, Daily, # 30 tablet, Refills 5, Tot. Refills 5, Maintenance, 07/07/20 13:21:00 EST, Route to Pharmacy Electronically, [facility] #[id number], 155, cm, 07/07/20 13:19:00 EST, Height, 39.6, [...]
--- OUTSIDE RECORDS SUMMARY | 2024-05-25 15:16 | XMS_ITS | Continuity of Care Document ---
Author Organization [facility] Address [address] [place] [address]- Care Team Providers Care Industrial Electrician Journeyman Name Role Phone Mark MENDOZA, Jennifer Darnell Primary Care Physician Encounter [facility] [place] ACCT R [id number] Date(s): 01/16/24 - 01/16/[address] [address] Discharge Disposition: A-D/C Home Attending Physician: Millicent Lorenzana MD Admitting Physician: [...] 11/14/22 7:49:00 EDT, Route to Pharmacy Electronically, [facility] 10976, 154.94, cm, 02/18/22 8:56:00 EDT, Height, 43.1, kg, 02/18/22 8:56:00 EDT, Dry Weight Start Date: 11/14/22 Status: Ordered Ferrous Sulfate EC Refills 0, Maintenance, 02/03/22 10:55:00 EDT, Partial fill upon patient request if the prescription is for a schedule II opioid drug. Start Date: 02/03/22 Status: Ordered nystatin 658962 u/ml oral suspension 5 mL = 500,000 units, By Mouth, 4 times a day, for 10 days, swish and swallow, # 200 mL, 1 Refills,Acute 02/01/24 10:37:00 EDT, 01/12/24 10:37:00 EDT, Suspension, [facility], Partial fill upon patient request if the prescription is f... Start Date: 01/12/24 Stop Date: 02/01/24 Status: Ordered pantoprazole 40 mg oral delayed release tablet 0 Refills, Maintenance, 12/03/21 8:46:00 EDT Start Date: 12/03/21 Status: Ordered Plavix 75 mg oral tablet 75 mg, 1, tablet, By Mouth, Daily, # 30 tablet, Refills 5, Tot. Refills 5, Maintenance, 07/07/20 13:21:00 EST, Route to Pharmacy Electronically, [facility] #[id number], 155, cm, 07/07/20 13:19:00 EST, Height, 39.6, [...] PRN Pain , Moderate, # 240 mL, 0 Refills, Maintenance, 01/03/24 10:46:00 EDT, Liquid, [facility] #2339, Partial fill upon patient request if the prescriptionis for a schedule II opioid drug., 154.94, cm, 12/13... 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 The patient wore a hat and mask and was completely draped from head to toe, exposing the surgical site only. Using ultrasound guidance following acquisition of permanent images, the internal jugular vein was accessed with a 21 gauge needle from a low posterior approach. Through a 4 Kenyan exchange dilator, a guidewire was advanced into the peripheral inferior vena cava. An incision was made inferior to the mid-clavicle. A subcutaneous pocket was created using sharp and blunt dissection. This pocket was copiously irrigated with saline, packed, and hemostasis was obtained. A subcutaneous tunnel was created from the base of this pocket to the venous access site, and the 6.6 Kenyan single-lumen infusion catheter was pulled through the tunnel. A 7 Kenyan peel-away sheath was placed into the jugular vein, and the infusion catheter was advanced into the right atrium using fluoroscopic guidance. A single lumen Medcomp Dignity port was securely attached to this infusion catheter, checked for a leak and flushed. The port was secured in the pocket using 2-0 Ethilon. The incision was closed using several deep interrupted 2-0 coated Vicryl sutures, a running subcuticular 4-0 Monocryl suture, and Dermabond. The venous access site was also closed with skin adhesive. G Tube: The left upper quadrant prepped and draped in the fashion. Buffered 1% lidocaine was administered for local anesthesia. The stomach was insufflated with air through the indwelling nasogastric tube. Two Saba José Miguel T fasteners were deployed in standard fashion. A dermatotomy was made using an 11 blade. A 17-gauge needle was advanced under fluoroscopic guidance into the gastric lumen and position confirmed injection of contrast. A 0.035 inches guidewire was advanced into the stomach. The track was serially dilated to 20 Kenyan using the sequential dilator system. A 16 Kenyan gastrostomy tube was placed through a 20 Kenyan peel-away sheath into the stomach. The retaining balloon was insufflated with 5 cc of sterile water. Spot radiographs were obtained in multiple projections during the injection of contrast and air to confirm catheter placement and position. FINDINGS/IMPRESSION: A limited ultrasound examination shows a compressible internal jugular vein. Successful placement of a single lumen port on the chest wall, with the infusion catheter placed via the central internal jugular vein. The catheter tip is positioned in the upper right atrium. There are no kinks in this catheter. The port flushes easily and demonstrates good blood return. Gastrostomy tube placement as described above. Contrast injections confirm appropriate placement within the stomach. Air flows freely around the securing balloon within the stomach. Recommendations: Routine gastrostomy tube placement in 3 months. Fluoroscopy time and dose Total Fluoro Time: 2.2 mins Total dose 5 mGy Total DAP 85.8 - ?Gy/m2 Contrast used Contrast used: Omnipaque_300 20 ml's Local Anesthetic Lidocaine 1% 10 ml's SQ Lidocaine 1% w/ 4.2% sodium bicarbonate 9 ml's SQ Anesthesia care Sedation and monitoring by Anesthesia, see Anesthesia record Signed By Kye Hagan MD On 01/16/2024 9:54:34 AM Kye Hagan MD Dictated By: Kye Hagan MD Dictated Date/Time: 01/16/24 7:54 am Reviewed By: Kye Hagan MD Signed By: Kye Hagan MD Signed Date/Time: 01/16/24 7:54 am Transcribed By: GINNY Transcribed Date/Time: 01/16/24 7:54 am Vital Signs Most recent to oldest [Reference Range]: 1 2 Height 155 cm (01/16/24 6:10 AM) 155 cm (01/12/24 10:14 AM) Weight 32 kg (01/12/24 10:14 AM) Oxygen Saturation [94-100 %] 96 % (01/16/24 10:07 AM) 98 % (01/16/24 6:10 AM) Pulse Rate [55-90 bpm] 64 bpm (01/16/24 10:07 AM) 77 bpm (01/16/24 6:10 AM) Body Mass Index [18.5-24.99 kg/m2] 13.32 kg/m2 *L* (01/12/24 10:14 AM) Blood Pressure [90-138/55-84 mm Hg] 159/ 70mm Hg *H* (01/16/24 10:07 AM) 150/77mm Hg *H* (01/16/24 6:10 AM) Respiratory Rate [16-30 br/min] 17 br/mi n (01/16/24 10:07 AM) 20 br/min (01/16/24 6:10 AM) Temperature [96.8-100.4 DegF] 97.5 DegF (01/16/24 6:10 AM) Mode of Delivery (Oxygen) Room air (01/16/24 10:07 AM) Room air (01/16/24 6:10 AM) Blood pressure sites Arm, left (01/16/24 10:07 AM) Arm, right (01/16/24 6:10 AM) Temperature Route Oral (01/16/24 6:10 AM) Dry Weight 32 kg (01/12/24 10:14 AM) Weight Obtained Via Patient/family state d (01/12/24 10:14 AM) Dry Weight Obtained Via Patient/family s tated (01/12/24 10:14 AM) Social History Social History Type Response Smoking Status 10 or more cigarette s (1/2 pack or more)/day in last 30 days; Type: Cigarettes entered on: 01/15/24 Sex Hospital Progress note * Dulce Marcos RN: PERFORM, SIGN, VERIFY, MODIFY, SIGN, MODIFY, SIGN, MODIFY, SIGN Event Display: Progress Note Hospital Authored Date: [id number] Patient: KIM VEGA Age: 63 years Sex: Female : 1960 Associated Diagnoses: None Author: Dulce Marcos RN Findings Narrative/Incidental 0600 Pt arrived to [facility] for a portacath and GT insertion. A&Ox4. Home Medication review ,Recurring Daystay form and Pre-Procedure check list completed. IV #22 started right ac and ordered bloodwork sent to lab . NPO since prior to midnight 01/16/24. 1100 Pt. returned to unit. AA&Ox4. Right neck and Right chest dressing C/D/I. Dressing to mid abdomen /gt site C/D/I. No active or S&S of bleeding noted. Vitals stable. NPO status maintained per order. 1200 Discharge instructions reviewed with Pt. who had good understanding of instructions using teach back. c/o sharp abdominal pain 7/10. Dr. Hagan web- paged to advise. 1344 Medicated with ultram 50mg per order, please see MAR. 1400 Ultram given with good affect. Pain no longer sharp in intensity and has decreased to 4/10. left ac IV discontinued, catheter tip intact and DSD applied. 1452 Discharged from unit via wheelchair to [facility] for transportation home. . Note * Dulce Marcos RN: PERFORM Event Display: Discharge/Transfer Note Hospital Authored Date: [id number] Nursing Discharge Note Entered On: 01/16/2024 15:58 EDT Performed On: 01/16/2024 15:58 EDT by Dulce Marcos RN Nursing Discharge Note 2 Discharge Time : 01/16/2024 14:52 EDT Discharge Level of Care at Discharge : Home/Longterm/Foster Care Patient Left Unit Via : Wheelchair Patient Accompanied Off Unit with : Responsible adult DC Instructions Provided & Signed by Pt : Yes Patient Understands D/C Instructions : Yes Patient Instructions Discharge Signed : Yes Did Pt have Specialty Bed or Wound Vac : No Dulce Marcos RN - 01/16/2024 15:58 EDT Patient Care team information Care Team Personnel Name: Katelin Mcfadden RN Position: [facility] RN Member Role: Primary Care Nurse Name: Jennifer Flores MD Position: Reference Physician Member Role: PCP Address: Address: [address] [place], [place] - Name: Robert Arechiga RN Position: [facility] RN Member Role: Primary Care Nurse Name: Zoila Segundo RN Position: [facility] ALEXYS Nurse Member Role: Primary Care Nurse Name: Betty Gomez RN Position: [facility] RN Member Role: Primary Care Nurse Name: Cabrera Peraza RN Position: [facility] RN Member Role: Primary Care Nurse Care Team Related Persons Name: CONI DEAL Name: REGI LAZAR Name: HELIO MOORE Address: home [address] [place], [place] Name: CINTHYA LANG Address: home [place], [place] Name: SAIMA PERDUE Address: home [address] [place] [address] [address] [place], [place] Name: SAIMA REYEZ Address: [address] [place] [address]
--- OUTSIDE RECORDS SUMMARY | 2024-05-25 15:16 | XMS_ITS | Continuity of Care Document ---
Author Organization [facility] Address [address] [place] [id number]- Care Team Providers Care Consumer Loan Officer Name Role Phone Mark MENDOZA, Jennifer Darnell Primary Care Physician Encounter [facility] [place] Date(s): 03/03/24 - 03/03/[address] [phone]- Encounter Diagnosis Physical deconditioning(Final) - 03/03/24 History of cerebrovascular accident (CVA) with residual deficit(Final) - 03/03/24 Discharge Disposition: A-D/C Home Attending Physician: Boris Archer MD Admitting Physician: Boris Archer MD Referring Physician: Not on Staff, Referring MD [...] tablet, 0 Refills, Maintenance, 01/29/24 14:25:00 EDT, [facility]/pharmacy #[id number], Partial fill upon patient request, 155, [...] 0 Refills, Maintenance, 02/13/24 15:56:00 EDT, Syrup, [facility]/pharmacy #[id number], Partial fill upon patient request if the prescription is for a schedule II opioid drug., 15 mL By Mouth... Start Date: 02/13/24 Status: Ordered lidocaine-prilocaine 2.5%-2.5% topical cream See Instructions, apply small dollop to [facility] site 1 hr prior to appt and cover with plastic, #30 Gm, 1 Refills, Maintenance, 01/29/24 14:24:00 EDT, Cream, [facility]/pharmacy #[id number], Partial fill upon patient request if the prescription is for a schedul... Start Date: 01/29/24 Status: Ordered Lovenox 60 mg/0.6 mL injectable solution 0.5 mL = 50 mg, Subcutaneous Injection, Daily, for 30 days, # 15 mL, 1 Refills, Acute 04/25/24 9:41:00 EDT, 02/25/24 9:41:00 EDT, Solution, [facility], Partial fill upon patient requestif the prescription is for a schedule II opioid sheldon... Start Date: 02/25/24 Stop Date: 04/25/24 Status: Ordered Nicoderm C-Q Clear 21 mg/24 hr transdermal film, extended release 1 patch, Topically, Daily, # 30 patch, 0 Refills, Maintenance, 02/25/24 9:47:00 EDT, Patch, [facility], Partial fill upon patient request if the prescription is for a schedule II opioiddrug., 150, cm, 02/25/24 8:49:00 EDT, Height, 32.5,... Start Date: 02/25/24 Status: Ordered olanzapine 2.5 mg oral tablet 1, tablet, By Mouth, Daily at bedtime, DIRECTED., # 18 tablet, Refills 0, Maintenance, 02/19/24 8:02:00 EDT, Route to Pharmacy Electronically, [id number], 150.8, cm, 02/13/24 15:23:00 EDT, Height, 33.6, kg, 02/13/24 15:23:00 EDT, Dry Weight Start Date: 02/19/24 Status: Ordered ondansetron 8 mg oral tablet 1 tablet = 8 mg, By Mouth, Every 8 hours, PRN as needed for nausea/vomiting, # 30 tablet, 1 Refills, Maintenance, 01/29/24 14:24:00 EDT, Tablet, [facility]/pharmacy #[id number], Partial fill upon patient request if the prescription is for a schedule II opioid drug... Start Date: 01/29/24 Status: Ordered oxyCODONE 5 mg/5 mL oral solution 5 mL = 5 mg, By Mouth, Every 8 hours, # 105 mL, 0 Refills, Maintenance, 02/20/24 21:30:00 EDT, Solution, [facility], Partial fill upon patient [...] tablet, 1 Refills, Maintenance, 01/29/24 14:24:00 EDT, [facility]/pharmacy #[id number], Partial fill upon patient requestif the [...] 0 Refills, Maintenance, 02/13/24 15:55:00 EDT, Syrup, [facility]/pharmacy #[id number], Partial fill upon patient [...] 1 Refills, Maintenance, 02/12/24 13:55:00 EDT, Liquid, [facility]/pharmacy #[id number], Partial fill upon patient [...] 06/24/24 9:41:00 EST, 02/25/24 9:41:00 EDT, Tablet, [facility], Partial fill upon patient request if the prescription is for a schedule II opioid drug., 150,... Start Date: 02/25/24 Stop Date: 06/24/24 Status: Ordered Walker See Instructions, # 1 each, Maintenance, 1 walker pt 5ft1in 74# rx for difficulty ambulating due tohistory of CVA, deconditioning, 03/03/24 15:49:00 EDT, Supply Start Date: 03/03/24 Status: Ordered Problem List Condition Confirmation Course [...] s/p polypectomy Confirmed Active Underweight Confirmed Active Vital Signs Most recent to oldest [Reference Range]: 1 2 3 Height 155 cm (03/03/24 5:21 PM) 155 cm (03/03/24 10:27 AM) 155 cm (03/03/24 10:19 AM) Oxygen Saturation [94-100 %] 95 % (03/03/24 5:21 PM) 98 % (03/03/24 2:01 PM) 97 % (03/03/24 10:19 AM) Pulse Rate [55-90 bpm] 74 bpm (03/03/24 5:21 PM) 64 bpm (03/03/24 2:01 PM) 96 bpm *H* (03/03/24 10:19 AM) Blood Pressure [90-138/55-84 mm Hg] 124/66mm Hg (03/03/24 5:21 PM) 129/69mm Hg (03/03/24 2:01 PM) 131/79mm Hg (03/03/24 10:19 AM) Respiratory Rate [16-30 br/min] 19 br/min (03/03/24 5:21 PM) 16 br/min (03/03/24 2:01 PM) 22 br/min (03/03/24 10:19 AM) Temperature [96.8-100.4 DegF] 98.2 DegF (03/03/24 5:21 PM) 98.5 DegF (03/03/24 2:01 PM) 98.4 DegF (03/03/24 10:19 AM) Mode of Delivery (Oxygen) Room air (03/03/24 5:21 PM) Room air (03/03/24 2:01 PM) Room air (03/03/24 10:19 AM) Blood pressure sites Arm, left (03/03/24 5:21 PM) Arm, left (03/03/24 2:01 PM) Arm, left (03/03/24 10:19 AM) Temperature Route Oral (03/03/24 5:21 PM) Oral (03/03/24 2:01 PM) Oral (03/03/24 10:19 AM) Dry Weight 34 kg (03/03/24 5:21 PM) 34 kg (03/03/24 10:27 AM) 34 kg (03/03/24 10:19 AM) Dry Weight Obtained Via Patient/family s tated (03/03/24 10:19 AM) Social History Social History Type Response Smoking Status 10 or more cigarette s (1/2 pack or more)/day in last 30 days; Interested in cessation: No; Patient wants NRT during admission No entered on: 02/20/24 Sex Note * Daxa Trotter RN: PERFORM, SIGN, VERIFY Event Display: Case Management Discharge Plan Authored Date: [id number] Patient: KIM VEGA Age: 64 years Sex: Female : 1960 Associated Diagnoses: None Author: Daxa Trotter RN Discharge Plan Case Management Discharge Plan : Case Management Discharge Plan Data 03/03/2024 15:48 EDT Discharge Level of Care at Discharge Homehealth/VNA Discharge VNA/Hospice/Home Care [facility] [phone] Name of Agency #1 [facility] Service Categories #1 Occupational Therapy, Physical Therapy, [facility] Service Comments #1 You are being discharged home with [facility] to provide physical therapy, occupational therapy and penitentiary. A nurse will call with a time for the initial eval. Please call them if they do not contact you. 03/02/2024 12:37 EDT Discharge Level of Care at Discharge Home/[facility] Patient Care team information Care Team Personnel Name: Katelin Mcfadden RN Position: S RN Member Role: Primary Care Nurse Name: Jude Mejia Position: S RN Supv Member Role: Primary Care Nurse Name: Jennifer Flores MD Position: Reference Physician Member Role: PCP Address: Address: [address] [place], [place] - Name: Kemi Henry RN Position: [facility] Onco RN Member Role: Primary Care Nurse Name: Robert Arechiga RN Position: S RN Member Role: Primary Care Nurse Name: Sienna Merida RN Position: [facility] Onco RN Member Role: Primary Care Nurse Name: Zoila Segundo RN Position: [facility] AMB Nurse Member Role: Primary Care Nurse Name: Izabel Cruz RN Position: S RN Member Role: Primary Care Nurse Name: Betty Gomez RN Position: [facility] SN RN Member Role: Primary Care Nurse Name: Cabrera Peraza RN Position: S RN Member Role: Primary Care Nurse Name: Mitzi Blue RN Position: [facility] Onco RN Member Role: Primary Care Nurse Name: Radha Gunn RN Position: S RN Member Role: Primary Care Nurse Care Team Related Persons Name: CONI DEAL Name: REGI LAZAR Name: HELIO MOORE Address: home [address] [place], [place] Name: CINTHYA LANG Address: home [address], [place] Name: SAIMA PERDUE Address: home [address] [place], [place] Name: SAIMA REYEZ Address: home [address] [place], [place]
--- OUTSIDE RECORDS SUMMARY | 2024-05-25 15:16 | XMS_ITS | Continuity of Care Document ---
Author Organization [facility] Address [address] [place] [id number]- Care Team Providers Care Management Psychologist Name Role Phone Mark MENDOZA, Jennifer Darnell Primary Care Physician Encounter [facility] [place] Date(s): 02/07/22 - 02/07/[address] [address] Discharge Disposition: A-D/C Home Attending Physician: Dillon Guillory MD Admitting Physician: Dillon Guillory MD Referring Physician: Dillon Guillory MD Allergies, Adverse Reactions, Alerts Substance Reaction [...] tablet, Refills 1, Route to Pharmacy Electronically, [id number], 155, cm, 12/03/21 8:45:00 EDT, Height, 39.6, [...] 07/07/20 13:21:00 EST, Route to Pharmacy Electronically, [facility] #[id number], 155, cm, 07/07/20 13:19:00 EST, Height, 39.6, [...] adenoma of colon, s/ p polypectomy(Confirmed) Active Vital Signs Most recent to oldest [Reference Range]: 1 2 3 Height 154.94 cm (02/07/22 6:20 AM) 154.94 cm (02/03/22 11:49 AM) Weight 44.5 kg (02/07/22 6:20 AM) Oxygen Saturation [94-100 %] 96 % (02/07/22 1:30 PM) 96 % (02/07/22 12:45 PM) 95 % (02/07/22 12:00 PM) Pulse Rate [55-90 bpm] 70 bpm (02/07/22 6:20 AM) Body Mass Index [18.5-24.99] 18.54 (02/07/22 6:20 AM) Blood Pressure [90-138/55-84 mm Hg] 150/72mm Hg *H* (02/07/22 12:45 PM) 147/67mm Hg *H* (02/07/22 12:00 PM) 145/66mm Hg *H* (02/07/22 11:30 AM) Respiratory Rate [16-30 br/min] 11 br/min *L* (02/07/22 12:45 PM) 12 br/min *L* (02/07/22 12:00 PM) 12 br/min *L* (02/07/22 11:30 AM) Temperature [96.8-100.4 DegF] 98.9 DegF (02/07/22 12:45 PM) 97.5 DegF (02/07/22 8:45 AM) 98.2 DegF (02/07/22 6:20 AM) Liters per Minute 2 L/min (02/07/22 9:45 AM) 2 L/min (02/07/22 9:00 AM) 6 L/min (02/07/22 8:45 AM) Mode of Delivery (Oxygen) Room air (02/07/22 1:30 PM) Room air (02/07/22 12:45 PM) Room air (02/07/22 10:45 AM) Blood pressure sites Arm, right (02/07/22 12:45 PM) Arm, left (02/07/22 8:45 AM) Arm, left (02/07/22 6:20 AM) Temperature Route Femoral (02/07/22 12:45 PM) Temporal (02/07/22 8:45 AM) Temporal (02/07/22 6:20 AM) Weight Obtained Via Standing scale (02/07/22 6:20 AM) Patient/family stated (02/03/22 11:49 AM) Social History Social History Type Response Smoking Status Current every day yissel davalos entered on: 01/26/15 Sex
--- OUTSIDE RECORDS SUMMARY | 2024-05-25 15:16 | XMS_ITS | Continuity of Care Document ---
Author Organization [facility] ter Address [address] [place] [id number]- Care Team Providers Care Public Area Attendant Name Role Phone Mark MENDOZA, Jennifer Darnell Primary Care Physician Encounter [facility] Date(s): 05/15/24 - 05/17/[address] [address]- Encounter Diagnosis UTI(Final) - 05/15/24 Discharge Disposition: A-D/C Home Attending Physician: Vin MENDOZA, Doyle Marrero Admitting Physician: Jaret Lara MD Referring Physician: Not on Staff, Referring MD Allergies, Adverse Reactions, Alerts Substance Reaction Severity Status Darvon difficulty breathing Active doxycycline vomiting Active hydrochlorothiazide unknown Active Medications albuterol 0.083% inhalation solution 3 mL = 2.5 mg, Inhalation, Every 6 hours, PRN for wheezing, # 25 each, 0 Refills, Maintenance, 02/03/22 10:50:00 EDT, Solution, Partial fill upon patient request if the prescription is for a scheduleII opioid drug. Start Date: 02/03/22 Status: Ordered Cane See Instructions, # 1 each, Maintenance, 1 each, 04/07/10 20:16:32 Start Date: 04/07/10 Status: Ordered cephalexin monohydrate 500 mg oral capsule 1 capsule = 500 mg, By Mouth, 4 times a day, for 3 days, # 12 capsule, 0 Refills, Acute 05/20/24 15:43:00 EDT, 05/17/24 15:43:00 EDT, Capsule, [facility], Partial fill upon patient request if the prescription is for a schedule II opioid... Start Date: 05/17/24 Stop Date: 05/20/24 Status: Ordered dexamethasone 4 mg oral tablet See Instructions, 1 tab (4mg) By Mouth once a day for 3 days as directed after chemo, with food, # 18 tablet, 0 Refills, Maintenance, 01/29/24 14:25:00 EDT, [facility]/pharmacy #[id number], Partial fill upon patient request, 155, cm, 01/16/24 6:10:00 EDT, Height... Start Date: 01/29/24 Status: Ordered lactulose 10 gm/15 ml oral syrup 15 mL = 10 Gm, By Mouth, Daily, PRN as needed for constipation, # 1,350 mL, 0 Refills, Maintenance,03/07/24 12:06:00 EDT, Syrup, [facility]/pharmacy #[id number], Partial fill upon patient request if the prescription is for a schedule II opioid drug., 15 mL By Adry... Start Date: 03/07/24 Status: Ordered lidocaine-prilocaine 2.5%-2.5% topical cream See Instructions, apply small dollop to [facility] 1 hr prior to appt and cover with plastic, #30 Gm, 1 Refills, Maintenance, 01/29/24 14:24:00 EDT, Cream, [facility]/pharmacy #[id number], Partial fill upon patient request if the prescription is for a schedul... Start Date: 01/29/24 Status: Ordered Nicoderm C-Q Clear 21 mg/24 hr transdermal film, extended release 1 patch, Topically, Daily, # 30 patch, 0 Refills, Maintenance, 02/25/24 9:47:00 EDT, Patch, [facility], Partial fill upon patient request if the prescription is for a schedule II opioiddrug., 150, cm, 02/25/24 8:49:00 EDT, Height, 32.5,... Start Date: 02/25/24 Status: Ordered olanzapine 2.5 mg oral tablet 1, tablet, By Mouth, Daily at bedtime, DIRECTED., # 18 tablet, Refills 0, Maintenance, 02/19/24 8:02:00 EDT, Route to Pharmacy Electronically, [id number], 150.8, cm, 02/13/24 15:23:00 EDT, Height, 33.6, kg, 02/13/24 15:23:00 EDT, Dry Weight Start Date: 02/19/24 Status: Ordered ondansetron 8 mg oral tablet 1 tablet = 8 mg, By Mouth, Every 8 hours, PRN as needed for nausea/vomiting, # 30 tablet, 1 Refills, Maintenance, 01/29/24 14:24:00 EDT, Tablet, [facility]/pharmacy #[id number], Partial fill upon patient request if the prescription is for a schedule II opioid drug... Start Date: 01/29/24 Status: Ordered outpatient physical therapy eval and treat outpatient physical therapy eval and treat, See Instructions, # 1 each, Refills 0, Tot. Refills 0, Maintenance, Diagnosis: lumbar compression fracture, unsteady gait, 05/17/24 15:59:00 EDT, Supply Start Date: 05/17/24 Status: Ordered oxyCODONE 5 mg oral tablet 5 mg, Tablet, By Mouth, Every 6 hours, PRN for Pain , Moderate, Routine, 05/16/24 5:30:00 EDT Start Date: 05/16/24 Stop Date: 05/18/24 Status: Discontinued oxyCODONE 5 mg/5 mL oral solution 5 mL = 5 mg, By Mouth, Every 8 hours, PRN Pain , Severe, # 105 mL, 0 Refills, Maintenance, 05/17/2415:43:00 EDT, Solution, [facility], Partial fill upon patient request if the prescription is for a schedule II opioid drug., 155, cm, 10/... Start Date: 05/17/24 Stop Date: 05/24/24 Status: Ordered pantoprazole 40 mg oral delayed release tablet 1 tablet = 40 mg, By Mouth, Daily, # 30 tablet, 0 Refills, Maintenance, 05/16/24 4:58:00 EDT, EC Tablet Start Date: 05/16/24 Status: Ordered ProAir HFA 90 mcg/inh inhalation aerosol with adapter 2, puffs, Inhalation, 4 times a day, Scheduled / PRN, 1, each, , 10/09/08 10:34:02, as neededfor wheezing, Print VENKAT Number, 65 Start Date: 10/09/08 Status: Ordered prochlorperazine 10 mg oral tablet 1 tablet = 10 mg, By Mouth, Every 6 hours, PRN nausea/vomiting, may cause drowsiness, # 30 tablet, 1 Refills, Maintenance, 01/29/24 14:24:00 EDT, [facility]/pharmacy #[id number], Partial fill upon patient requestif the prescription is for a schedule II opioid sheldon... Start Date: 01/29/24 Status: Ordered senna 8.8 mg/5 mL oral syrup 10 mL = 17.6 mg, By Mouth, Daily at bedtime, PRN for constipation, # 240 mL, 0 Refills, Maintenance, 02/13/24 15:55:00 EDT, Syrup, [facility]/pharmacy #[id number], Partial fill upon patient request if [...] opioid drug. Start Date: 02/03/22 Status: Ordered Vitamin D3 1000 intl units oral capsule 1 capsule = 25 mcg, By Mouth, Daily, # 30 capsule, 0 Refills, Maintenance, 05/17/24 16:01:00 EDT, Capsule, [facility], Partial fill upon patient request if the prescription is for a schedule II opioid drug., 155, cm, 05/17/24 7:59:00 EDT... Start Date: 05/17/24 Stop Date: 06/16/24 Status: Ordered voriconazole 200 mg oral tablet = 200 mg, By Mouth, Every 12 hours, for 30 days, # 60 tablet, 3 Refills, Acute 09/14/24 16:09:00 EST, 05/17/24 16:09:00 EDT, Tablet, [facility]/pharmacy #[id number], Partial fill upon patient request if the prescription is for a schedule II opioid drug., 155, cm,... Start Date: 05/17/24 Stop Date: 09/14/24 Status: Ordered Walker See Instructions, # 1 each, Maintenance, 1 walker pt 5ft1in 74# rx for difficulty ambulating due tohistory of CVA, deconditioning, 03/03/24 15:49:00 EDT, Supply Start Date: 03/03/24 Status: Ordered warfarin 3 mg oral tablet 1 tablet = 3 mg, By Mouth, Daily at supper, # 30 tablet, 0 Refills, Maintenance, 03/15/24 11:40:00 EDT, Tablet, [id number], Partial fill upon [...] Active Weakness of right arm Confirmed Active Results Radiology Reports (Most Recent Ten) * Exam Date Time Procedure Performing Provider Status 05/16/24 6:45 PM Lumbar Spine 2 or 3 Views Vijay Villeda; Camilla (Verified) Notes: (Lumbar Spine 2 or 3 Views) Reason For Exam: L3 fracture;Other: RESULT: Lumbar Spine 2 or 3 Views Lumbar Spine 2 or 3 Views Reason: Other:; L3 fracture; Clinical Question(s): Fracture Dislocation; Special Instructions: upright AP and lateral views once patient is in TLSO brace COMPARISON: Correlation made to CT lumbar spine dated 05/15/2024 FINDINGS: Mild loss of vertebral body height at the superior endplate of L3 and mild loss of disc space height at the L2-3 level. Vertebral alignment Vertebral alignment is within normal limits. Dense atherosclerotic calcifications are present. IMPRESSION: Mild superior endplate vertebral compression fracture at L3 and loss of disc space height at the L2-3 level WSN: [id number] Ordering Physician: Gia Baires Dictated By: Bandar Romero Jr, MD Dictated Date/Time: 05/16/24 7:13 pm Reviewed By: Bandar Romero Jr, MD Signed By: Bnadar Romero Jr, MD Signed Date/Time: 05/16/24 7:13 pm Transcribed By: RADHA Transcribed Date/Time: 05/16/24 7:10 pm * Exam Date Time Procedure Performing Provider Status 05/15/24 8:53 PM XR Femur 2 Views Left Mohini Morris (Verified) Notes: (XR Femur 2 Views Left) Reason For Exam: Trauma RESULT: Femur 2 Views Left Ankle Min 3 Views Left, Tibia/Fibula 2 Views Left, Femur 2 Views Left Hx of Present Illness: pt rolled out of bed this morning. Hit head and back on wall. Was on ground for 3 hours.; Reason: Trauma; Clinical Question(s): Fracture; Order Comment: COMPARISON: None. FINDINGS: No evidence of acute or healing fracture or bone lesion. Postsurgical findings in the ankle. Intact ankle mortise and talar dome. No arthritic changes. Normal soft tissues. IMPRESSION: No acute fracture identified. WSN: [id number] Ordering Physician: Thor Fan Dictated By: Israel Hobbs MD Dictated Date/Time: 05/15/24 9:19 pm Reviewed By: Israel Hobbs MD Signed By: Israel Hobbs MD Signed Date/Time: 05/15/24 9:19 pm Transcribed By: RADHA Transcribed Date/Time: 05/15/24 9:16 pm * Exam Date Time Procedure Performing Provider Status 05/15/24 8:53 PM Tibia/Fibula 2 Views Left Nany Morris; Auth (Verified) Notes: (Tibia/Fibula 2 Views Left) Reason For Exam: Trauma RESULT: Tibia/Fibula 2 Views Left Ankle Min 3 Views Left, Tibia/Fibula 2 Views Left, Femur 2 Views Left Hx of Present Illness: pt rolled out of bed this morning. Hit head and back on wall. Was on ground for 3 hours.; Reason: Trauma; Clinical Question(s): Fracture; Order Comment: COMPARISON: None. FINDINGS: No evidence of acute or healing fracture or bone lesion. Postsurgical findings in the ankle. Intact ankle mortise and talar dome. No arthritic changes. Normal soft tissues. IMPRESSION: No acute fracture identified. WSN: [id number] Ordering Physician: Thor Fan Dictated By: Israel Hobbs MD Dictated Date/Time: 05/15/24 9:19 pm Reviewed By: Israel Hobbs MD Signed By: Israel Hobbs MD Signed Date/Time: 05/15/24 9:19 pm Transcribed By: RADHA Transcribed Date/Time: 05/15/24 9:16 pm * Exam Date Time Procedure Performing Provider Status 05/15/24 8:53 PM Ankle Min 3 Views Left Mohini Morris (Verified) Notes: (Ankle Min 3 Views Left) Reason For Exam: Trauma RESULT: Ankle Min 3 Views Left Ankle Min 3 Views Left, Tibia/Fibula 2 Views Left, Femur 2 Views Left Hx of Present Illness: pt rolled out of bed this morning. Hit head and back on wall. Was on ground for 3 hours.; Reason: Trauma; Clinical Question(s): Fracture; Order Comment: COMPARISON: None. FINDINGS: No evidence of acute or healing fracture or bone lesion. Postsurgical findings in the ankle. Intact ankle mortise and talar dome. No arthritic changes. Normal soft tissues. IMPRESSION: No acute fracture identified. WSN: [id number] Ordering Physician: Thor Fan Dictated By: Israel Hobbs MD Dictated Date/Time: 05/15/24 9:19 pm Reviewed By: Israel Hobbs MD Signed By: Israel Hobbs MD Signed Date/Time: 05/15/24 9:19 pm Transcribed By: RADHA Transcribed Date/Time: 05/15/24 9:16 pm * Exam Date Time Procedure Performing Provider Status 05/15/24 8:53 PM Forearm 2 Views Left Mohini Morris [facility] (Verified) Notes: (Forearm 2 Views Left) Reason For Exam: Trauma RESULT: Forearm 2 Views Left Shoulder Min 2 Views Left, Humerus Min 2 Views Left, Forearm 2 Views Left, 2 views each Hx of Present Illness: pt rolled out of bed this morning. Hit head and back on wall. Was on ground for 3 hours.; Reason: Trauma; Clinical Question(s): Fracture COMPARISON: None. FINDINGS: No fracture or dislocation. No arthritic change of the glenohumeral joint. Mild degenerative changes of the AC joint. The portion of the clavicle included on the exam is normal. 5 mm linear calcification adjacent to the humeral head likely represents calcific tendinitis of therotator cuff. IMPRESSION: No acute fracture or dislocation. Findings suggesting calcific tendinitis of the rotator cuff. WSN: [id number] Ordering Physician: Thor Fan Dictated By: Pina Ferraro MD Dictated Date/Time: 05/15/24 9:12 pm Reviewed By: Pina Ferraro MD Signed By: Pina Ferraro MD Signed Date/Time: 05/15/24 9:12 pm Transcribed By: RADHA Transcribed Date/Time: 05/15/24 9:10 pm * Exam Date Time Procedure Performing Provider Status 05/15/24 8:53 PM Humerus Min 2 Views Left Ty Morris n; Auth (Verified) Notes: (Humerus Min 2 Views Left) Reason For Exam: Trauma RESULT: Humerus Min 2 Views Left Shoulder Min 2 Views Left, Humerus Min 2 Views Left, Forearm 2 Views Left, 2 views each Hx of Present Illness: pt rolled out of bed this morning. Hit head and back on wall. Was on ground for 3 hours.; Reason: Trauma; Clinical Question(s): Fracture COMPARISON: None. FINDINGS: No fracture or dislocation. No arthritic change of the glenohumeral joint. Mild degenerative changes of the AC joint. The portion of the clavicle included on the exam is normal. 5 mm linear calcification adjacent to the humeral head likely represents calcific tendinitis of therotator cuff. IMPRESSION: No acute fracture or dislocation. Findings suggesting calcific tendinitis of the rotator cuff. WSN: [id number] Ordering Physician: Thor Fan Dictated By: Pina Ferraro MD Dictated Date/Time: 05/15/24 9:12 pm Reviewed By: Pina Ferraro MD Signed By: Pina Ferraro MD Signed Date/Time: 05/15/24 9:12 pm Transcribed By: RADHA Transcribed Date/Time: 05/15/24 9:10 pm * Exam Date Time Procedure Performing Provider Status 05/15/24 8:53 PM Shoulder Min 2 Views Left Nany Morris; Auth (Verified) Notes: (Shoulder Min 2 Views Left) Reason For Exam: Trauma RESULT: Shoulder Min 2 Views Left Shoulder Min 2 Views Left, Humerus Min 2 Views Left, Forearm 2 Views Left, 2 views each Hx of Present Illness: pt rolled out of bed this morning. Hit head and back on wall. Was on ground for 3 hours.; Reason: Trauma; Clinical Question(s): Fracture COMPARISON: None. FINDINGS: No fracture or dislocation. No arthritic change of the glenohumeral joint. Mild degenerative changes of the AC joint. The portion of the clavicle included on the exam is normal. 5 mm linear calcification adjacent to the humeral head likely represents calcific tendinitis of therotator cuff. IMPRESSION: No acute fracture or dislocation. Findings suggesting calcific tendinitis of the rotator cuff. WSN: [id number] Ordering Physician: Thor Fan Dictated By: Pina Ferraro MD Dictated Date/Time: 05/15/24 9:12 pm Reviewed By: Pina Ferraro MD Signed By: Pina Ferraro MD Signed Date/Time: 05/15/24 9:12 pm Transcribed By: RADHA Transcribed Date/Time: 05/15/24 9:10 pm * Exam Date Time Procedure Performing Provider Status 05/15/24 7:[address] Cervical Spine W/O Contrast Malaika Arroyo; Camilla (Verified) Notes: (CT Cervical Spine W/O Contrast) Reason For Exam: Neck trauma, dangerous injury mechanism;Other: RESULT: CT Cervical Spine W/O Contrast CT Head/Brain W/O Contrast, CT Cervical Spine W/O Contrast INDICATION: Hx of Present Illness: pt rolled out of bed this morning. Hit head and back on wall. Was on ground for 3 hours.; Reason: Other:; Head trauma, mod- severe; Clinical Question(s): Hematoma TECHNIQUE: Noncontrast head CT using axial technique and reconstructed in axial and coronal planes.Iterative reconstruction techniques are used to optimize dose and image quality. CTDIvol Body: 7.60 mGy, DLP Body: 187 mGy*cm. CTDIvol Head: 42.00 mGy, DLP Head: 672 mGy*cm. COMPARISON: None. FINDINGS: Quality Control Microbiologist view findings, lines and tubes: None. BRAIN AND EXTRA-AXIAL SPACES: There is encephalomalacia seen in the posterior right frontal/parietal lobe which appears to have progressed compared to previous examination. Findings suggestive of subacute/approach and chronic infarct. Mild prominence of the ventricles and sulci consistent with parenchymal volume loss. Mild low-density white matter changes. No subarachnoid hemorrhage. No subdural or epidural collection. CALVARIUM, SKULL BASE, AND SOFT TISSUES: No fractures or suspicious bony lesions. The paranasal sinuses and mastoid air cells are clear. Visualized orbits and globes are intact. The extracranial soft tissues are unremarkable. CT scan of the cervical spine: No evidence of acute fracture. Degenerative changes in the cervical spine. IMPRESSION: Continued involvement of previously seen right posterior frontal/parietal infarct. No evidence of cervical spine fracture. WSN: [id number] Ordering Physician: Thor Fan Dictated By: Israel Hobbs MD Dictated Date/Time: 05/15/24 7:30 pm Reviewed By: Israel Hobbs MD Signed By: Israel Hobbs MD Signed Date/Time: 05/15/24 7:30 pm Transcribed By: RADHA Transcribed Date/Time: 05/15/24 7:24 pm * Exam Date Time Procedure Performing Provider Status 05/15/24 7:[address] Head/Brain W/O Contrast Brian Arroyo; Auth (Verified) Notes: (CT Head/Brain W/O Contrast) Reason For Exam: Head trauma, mod-severe;Other: RESULT: CT Head/Brain W/O Contrast CT Head/Brain W/O Contrast, CT Cervical Spine W/O Contrast INDICATION: Hx of Present Illness: pt rolled out of bed this morning. Hit head and back on wall. Was on ground for 3 hours.; Reason: Other:; Head trauma, mod- severe; Clinical Question(s): Hematoma TECHNIQUE: Noncontrast head CT using axial technique and reconstructed in axial and coronal planes.Iterative reconstruction techniques are used to optimize dose and image quality. CTDIvol Body: 7.60 mGy, DLP Body: 187 mGy*cm. CTDIvol Head: 42.00 mGy, DLP Head: 672 mGy*cm. COMPARISON: None. FINDINGS: Quality Control Microbiologist view findings, lines and tubes: None. BRAIN AND EXTRA-AXIAL SPACES: There is encephalomalacia seen in the posterior right frontal/parietal lobe which appears to have progressed compared to previous examination. Findings suggestive of subacute/approach and chronic infarct. Mild prominence of the ventricles and sulci consistent with parenchymal volume loss. Mild low-density white matter changes. No subarachnoid hemorrhage. No subdural or epidural collection. CALVARIUM, SKULL BASE, AND SOFT TISSUES: No fractures or suspicious bony lesions. The paranasal sinuses and mastoid air cells are clear. Visualized orbits and globes are intact. The extracranial soft tissues are unremarkable. CT scan of the cervical spine: No evidence of acute fracture. Degenerative changes in the cervical spine. IMPRESSION: Continued involvement of previously seen right posterior frontal/parietal infarct. No evidence of cervical spine fracture. WSN: [id number] Ordering Physician: Thor Fan Dictated By: Israel Hobbs MD Dictated Date/Time: 05/15/24 7:30 pm Reviewed By: Israel Hobbs MD Signed By: Israel Hobbs MD Signed Date/Time: 05/15/24 7:30 pm Transcribed By: RADHA Transcribed Date/Time: 05/15/24 7:24 pm * Exam Date Time Procedure Performing Provider Status 05/15/24 7:[address] Thoracic Spine W/ Contrast Malaika Arroyo; Auth (Verified) Notes: (CT Thoracic Spine W/ Contrast) Reason For Exam: Spine fracture, thoracic, traumatic;Other: RESULT: CT Thoracic Spine W/ Contrast CT Chest W/ Contrast, CT Abd/Pelvis W/ IV Contrast Only, CT Lumbar Spine W/ Contrast, CT Thoracic Spine W/ Contrast INDICATION: Rolled out of bed striking head and back. Unable to get up and down time of 3 hours. Alcohol abuse. Smoker. Laryngeal carcinoma. Posttraumatic back pain and left lower extremity pain. 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 : COMPARISON: 02/23/2024. TECHNIQUE: Helical contrast -enhanced CT of the chest, abdomen, and pelvis was performed from the lung apex to the ischial tuberosity. 100 cc of Omnipaque 300 was administered intravenously. Images of the chest, abdomen, and pelvis were reconstructed in axial, coronal, and sagittal planes. Images of the thoracic and lumbar spine were reconstructed in all 3 planes. Weight-based protocol using automatic tube modulation was used to optimize exposure parameters. RADIATION DOSE PARAMETERS: CTDIvol Body: 4.20 mGy, DLP Body: 270 mGy*cm. FINDINGS: Quality Control Microbiologist View Findings, Lines and Tubes: None.. CHEST Trachea and Mainstem Bronchi: No significant abnormality. LUNGS AND PLEURA Right Chest: Emphysema. Approximately 15 mm spiculated mass right apex unchanged. 3 mm lower lobe nodule image 51 unchanged. Minimal dependent atelectasis. There is no right pleural effusion. No pneumothorax. Left Chest: Emphysema. Several lung nodules present within the largest in the lower lobe measuring 10 mm. These nodules are unchanged. Mild dependent atelectasis. There is no left pleural effusion. No pneumothorax. AORTA: No thoracic aortic aneurysm or dissection. MEDIASTINUM AND BENNY: The heart is of normal size. No pericardial effusion.. A few borderline sized mediastinal nodes. No gross adenopathy.. There is no esophageal abnormality. BONES OF THE CHEST: No fracture right ribs. Old mildly displaced fracture lateral aspect left rib 5 which is not healed. It is stable. No new left rib fracture. No fracture visualized scapula and clavicle.. ABDOMEN AND PELVIS Diaphragm: Unremarkable. Liver: No significant focal abnormality. Portal venous system: No thrombosis involving the portal, splenic or superior mesenteric veins. Gallbladder: Normal size. No calcified stones. Bile ducts: Mild intrahepatic biliary dilatation. The common duct is 9 mm superiorly and tapers to 6 mm in the pancreatic head. This is similar in appearance to exam of 04/20/2019 and is therefore probably normal for this patient... Spleen: Normal size. A 12 mm coarse calcification has developed at the site of an old injury to the superior part of thespleen. It is unchanged since 02/23/2024. There is no acute splenic abnormality.. Pancreas: Normal. Adrenal Glands: Normal. Kidneys and Ureters: Right Kidney: Normal. Left Kidney: Normal. Bladder: Normal. Stomach, Small bowel and Large Bowel: Stomach: Normal. Small Bowel: No small bowel dilatation or gross inflammatory change Large Bowel: No large bowel dilatation or gross inflammatory change. The Appendix is identified. Reproductive/Pelvic organs: No pelvic mass or fluid collection. Peritoneum, retroperitoneum, omentum and mesentery: There is no free air. . There is no ascites. Lymph nodes: No enlarged lymph nodes Aorta and iliac vessels: There is no aneurysm of the abdominal aorta or iliac arteries. Pronounced atherosclerotic calcification. 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 This is treated by a [id number] femoral-femoral artery bypass. Occlusion of the left superficial femoral artery. . Abdominal wall: No abdominal wall hernia Bony Pelvis and hips: There is no fracture of the bony pelvis or the proximal femurs. Sacroiliac joints intact. Hip joints are intact. THORACIC SPINE AND LUMBAR SPINE There is no fracture or thoracic spine. There is mild compression fracture involving the L3 vertebral body with no retropulsion of bone involving the posterior elements. It is new since 04/20/2019 otherwise of uncertain age. No spondylolysis. Normal alignment of thoracic and lumbar spine. Mild degenerative change.. IMPRESSION: CHEST 1. No acute posttraumatic abnormalities in soft tissues.. 2. Emphysema with no pleural effusion or pneumothorax. 3. Stable right upper lobe spiculated lesion with a recent biopsy of aspergillosis. 4. A few small stable left lung nodules in patient with history of head and neck cancer. 5. No recent fracture ribs or sternum. ABDOMEN AND PELVIS 1. No acute soft tissue abnormality. 2. Vascular disease with arterial bypass as noted above. 3. No fracture or bony pelvis or proximal femurs. THORACIC AND LUMBAR SPINE 1. No thoracic spine injury.. 2. Mild L3 compression fracture which is new since 04/20/2019 otherwise of uncertain age. 3. Normal alignment thoracic spine and lumbar spine. WSN: [id number] Ordering Physician: Thor Fan Dictated By: Josr Kamara MD Dictated Date/Time: 05/15/24 7:40 pm Reviewed By: Josr Kamara MD Signed By: Josr Kamara MD Signed Date/Time: 05/15/24 7:40 pm Transcribed By: RADHA Transcribed Date/Time: 05/15/24 7:13 pm Vital Signs Most recent to oldest [Reference Range]: 1 2 3 Height 155 cm (05/17/24 5:48 PM) 155 cm (05/17/24 7:59 AM) 155 cm (05/17/24 7:11 AM) Weight 35 kg (05/16/24 1:48 PM) 35 kg (05/16/24 12:58 PM) 35 kg (05/16/24 12:50 PM) Oxygen Saturation [94-100 %] 100 % (05/17/24 5:48 PM) 94 % (05/17/24 11:47 AM) 95 % (05/17/24 7:59 AM) Pulse Rate [55-90 bpm] 85 bpm (05/17/24 5:48 PM) 72 bpm (05/17/24 11:47 AM) 64 bpm (05/17/24 7:59 AM) Body Mass Index [18.5-24.99 kg/m2] 14.57 kg/m2 *L* (05/16/24 1:48 PM) 13.17 kg/m2 *L* (05/16/24 12:58 PM) 13.17 kg/m2 *L* (05/16/24 12:50 PM) Blood Pressure [90-138/55-84 mm Hg] 136/65mm Hg (05/17/24 5:48 PM) 118/64mm Hg (05/17/24 11:47 AM) 147/66mm Hg *H* (05/17/24 7:59 AM) Respiratory Rate [16-30 br/min] 16 br/min (05/17/24 5:48 PM) 20 br/min (05/17/24 11:47 AM) 18 br/min (05/17/24 10:19 AM) Temperature [96.8-100.4 DegF] 97.9 DegF (05/17/24 5:48 PM) 98.2 DegF (05/17/24 11:47 AM) 97.6 DegF (05/17/24 7:59 AM) Mode of Delivery (Oxygen) Room air (05/17/24 5:48 PM) Room air (05/17/24 11:47 AM) Room air (05/17/24 7:59 AM) Blood pressure sites Arm, right (05/17/24 5:48 PM) Arm, right (05/17/24 11:47 AM) Arm, right (05/17/24 7:59 AM) Temperature Route Oral (05/17/24 5:48 PM) Oral (05/17/24 11:47 AM) Oral (05/17/24 7:59 AM) Dry Weight 35 kg (05/16/24 1:48 PM) 35 kg (05/16/24 12:58 PM) 35 kg (05/16/24 12:50 PM) Weight Obtained Via Patient/family stated (05/16/24 1:48 PM) Patient/family stated (05/15/24 11:39 AM) Dry Weight Obtained Via Patient/family stated (05/15/24 11:39 AM) Social History Social History Type Response Smoking Status 10 or more cigarette s (1/2 pack or more)/day in last 30 days; Interested in cessation: No; Patient wants NRT during admission No entered on: 04/09/24 Sex Admission evaluation note * Maria G MENDOZA, Domo Banuelos: PERFORM, MODIFY Event Display: Admission Note Authored Date: [id number] Patient: ??KIM VEGA ? Age:??64 Years?Sex:??Female?:??1960?? Chief Complaint/Reason for Consultation rolled OOB three hours ago. Hit head and back on wall. no LOC. supposed to be on eloquis but has not been taking it. c/o neck JUAREZ and back pain. redness to back. Was able to stand and poivot. 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 She reports that she fell out of bed when she was trying to get out, she is unclear how she actually fell however she reported that her legs give out.?? She denies loss of consciousness, and she is unclear if she had her head.?? Upon visitation the emergency department, she was hemodynamically stable blood pressure 160/63, afebrile, mentating saturation at 94% on room air.?? Initial blood work was fairly stable and unchanged from prior with chronic anemia with hemoglobin of 9.9 otherwise unremarkable UDS was negative.?? Blood alcohol level was undetectable.?? She had a dirty UA with +1 leukocyte and positive nitrite.?? She had a bella CT scan.?? CT scan of the brain without acute intraocular abnormalities (redemonstrated right posterior frontal/parietal infarct) without acute process.?? There is no acute cervical spine fractures.?? CT scan of the chest without acute abnormalities with again demonstration of aspergillosis.?? CT scan abdomen/pelvis without abnormalities.?? Thoracic and lumbar spines with mild L3 compression fracture which is new compared to prior imaging.?? X-ray of tibia/fibula without any fractures.?? CT scan of the humerus without fractures neurosurgery was consulted with no new surgical interventions warranted therefore, patient was admitted to medicine for further management evaluation.?? Upon evaluation, she was lying comfortably without any signsof distress, cachectic looking.?? No symptoms reported at present. Review of Systems A full review of systems was completed and is otherwise negative except as mentioned in history of present illness. Objective Measurements?? Height: 163 cm (05/15/24) Weight: 35 kg (05/15/24) Dry Weight: 35 kg (05/15/24) Body Mass Index:??13.17 kg/m2??Low (05/15/24) ? Vital Signs?? Temperature: 99.7 DegF (05/15/24 21:08:00) Temperature Route: Oral (05/15/24 21:08:00) Pulse Rate: 68 bpm (05/15/24 21:08:00) Respiratory Rate:??12 br/min??Low (05/15/24 21:08:00) Systolic Blood Pressure:??146 mm Hg??High (05/15/24 21:08:00) Diastolic Blood Pressure: 66 mm Hg (05/15/24 21:08:00) Blood pressure sites: Arm, left (05/15/24 21:08:00) Mean Arterial Pressure: 93 mm Hg (05/15/24 21:08:00) Pulse Pressure: 80 mm Hg (05/15/24 21:08:00) Oxygen Saturation: 97 % (05/15/24 21:08:00) Mode of Delivery (Oxygen): Room air (05/15/24 21:08:00) ? Intake/Output? No Data Available ? Physical Exam General Appearance: The patient is in NAD.?? Cachectic Head: atraumatic EENT: MMM, no scleral icterus Cardiovascular: RRR no MRG Respiratory:?? Breath sounds clear to auscultation bilaterally. No wheezing. room air. GI: Soft. Nontender and nondistended. Normal bowel sounds present throughout abdomen. MS:??Back midline tenderness. ??No edema or erythema in the lower extremities. Peripheral sensationintact. Skin: warm, dry, no rashes Neuro:?? No slurred speech.?? Patient seen moving their upper and lower extremities independently. Psych: calm Lines: Peripheral IV in place. Assessment/Plan Diagnoses Compression fracture of spine ??(M48.50XA) Current use of electrical project manager anticoagulation ??(Z79.01) FTT (failure to thrive) in adult ??(R62.7) Fall ??(W19.XXXA) History of CVA (cerebrovascular accident) ??(Z86.73) Hypercoagulable state ??(D68.59) Laryngeal carcinoma ??(C32.9) Malnutrition ??(E46) Weakness ??(R53.1) ?? Weakness (R53.1) ?Grouped with??Compression fracture of spine (M48.50XA),??Fall (W19.XXXA) ? Patient with??progressive weakness??who sustained a fall earlier today, likely??secondary to??increased??frailty in the setting of advanced??laryngeal carcinoma??combined with??recent stroke with residual weakness. Pending scan??with evidence of L3 compression fracture.??Otherwise??unremarkable. Evaluated by neurosurgery with no neurosurgical interventions warranted Was admitted under medicine for pain control Pain medication as needed. PT evaluation. Every 4 neurochecks. TLSO brace will be ordered??from O&P lab in the morning??per neurosurgery. ?? History of CVA (cerebrovascular accident) (Z86.73):??Fairly recent, with residual weakness. Was deemed to be embolic,??on Coumadin. ?? FTT (failure to thrive) in adult (R62.7) ?Grouped with??Laryngeal carcinoma (C32.9),??Malnutrition (E46) ? Patient with advanced laryngeal carcinoma??with??severe malnutrition, inability to thrive. She does not use her GJ tube for feeding. Nutrition consultation requested. Palliative consult may be warranted. ?? Hypercoagulable state (D68.59) ?Grouped with??Current use of halfway anticoagulation (Z79.01) ? Hypercoagulable state, on warfarin. Resume. ?? VTE Prophylaxis:??On Coumadin ?VTE Prophylaxis Assessment:??VTE Prophylaxis Ordered ?? Discharge Planning:? Code Status:??DNR/DNI, reviewed with the patient at the bedside ?Order Code Status:??Code Status Ordered ? Estimated Discharge Date ? Histories Allergies Allergies ?(Active and Proposed [...] s/p polypectomy Underweight Weakness of right arm ? Past Surgical History Right ax-fem Bypass: 06/03/20 Reduction and internal fixation, left calcaneus avulsion fracture: 10/28/16 Open reduction, internal fixation of bimalleolar fracture, left ankle, using a VariAx plate on the distal fibula from the [employer] and 2 cannulated titanium screws to fix the left medial malleolus: 12/07/11 Colonoscopy w/polypectomy: 2006 PFT - Pulmonary function tests: 11/26/03 Gastrostomy tube insertion education Accessing port a cath Appendectomy Tonsillectomy and adenoidectomy ? Social History [...] 3 mg oral tablet)?1?tab(s)?3?Milligram?By Mouth?Daily at supper ? Results Recent Labs BLOOD BANK Blood Type O Positive ()?? 05/15/2024 12:18 Antibody Screen Negative ()?? 05/15/2024 12:18 ?? BLOOD COUNT & DIFF WBC 6.4 k/mm3 ()?? 05/15/2024 13:07 RBC 3.98 m/mm3 (Low)?? 05/15/2024 13:07 Hgb 9.9 Gm/dL (Low)?? 05/15/2024 13:07 Hct 33.6 % (Low)?? 05/15/2024 13:07 MCV 84.4 femtoliters ()?? 05/15/2024 13:07 MCH 24.9 pg (Low)?? 05/15/2024 13:07 MCHC 29.5 Gm/dL (Low)?? 05/15/2024 13:07 Platelet Count 195 k/mm3 ()?? 05/15/2024 13:07 RDW-SD 63.0 femtoliters (High)?? 05/15/2024 13:07 MPV 9.1 femtoliters (Low)?? 05/15/2024 13:07 Nucleated RBC (Automated) 0.0 #/100 WBC'S ()?? 05/15/2024 13:07 Abs. NRBC 0.0 k/mm3 ()?? 05/15/2024 13:07 Abs. Neut 5.2 k/mm3 ()?? 05/15/2024 13:07 Abs. Lymph 0.5 k/mm3 (Low)?? 05/15/2024 13:07 Abs. Dyer 0.5 k/mm3 ()?? 05/15/2024 13:07 Abs. Eo 0.1 k/mm3 ()?? 05/15/2024 13:07 Abs. Baso 0.0 k/mm3 ()?? 05/15/2024 13:07 Neut % 81.3 % (High)?? 05/15/2024 13:07 Lymph % 8.5 % (Low)?? 05/15/2024 13:07 Dyer % 8.3 % ()?? 05/15/2024 13:07 Eos % 1.1 % ()?? 05/15/2024 13:07 Baso % 0.3 % ()?? 05/15/2024 13:07 Imm Gran 0.5 % ()?? 05/15/2024 13:07 Abs. Imm Gran 0.0 k/mm3 ()?? 05/15/2024 13:07 ?? CARDIAC CK, Total 253 units/L (High)?? 05/15/2024 13:07 High Sensitivity Troponin (HSTnT) 25 ng/L (High)?? 05/15/2024 16:09 ?? CHEM GENERAL Sodium 142 mmol/L ()?? 05/15/2024 13:07 Potassium 4.5 mmol/L ()?? 05/15/2024 13:07 Chloride 107 mmol/L ()?? 05/15/2024 13:07 Bicarbonate Level 23 mmol/L ()?? 05/15/2024 13:07 Anion Gap 12 ()?? 05/15/2024 13:07 Glucose Level 88 mg/dL ()?? 05/15/2024 13:07 Glucose, POC 95 mg/dL ()?? 05/15/2024 12:39 BUN 10 mg/dL ()?? 05/15/2024 13:07 Creatinine-Blood 0.41 mg/dL (Low)?? 05/15/2024 13:07 Estimated GFR Creatinine 111 ML/MIN/1.73 M2 ()?? 05/15/2024 13:07 Alkaline Phosphatase 105 units/L (High)?? 05/15/2024 13:07 Lipase 17 units/L ()?? 05/15/2024 13:07 AST (SGOT) 23 units/L ()?? 05/15/2024 13:07 ALT (SGPT) 13 units/L ()?? 05/15/2024 13:07 Bilirubin, Total <0.2 mg/dL ()?? 05/15/2024 13:07 Lactate 1.1 mmol/L ()?? 05/15/2024 13:07 ?? TOXICOLOGY/TDM Ethanol, Serum or Plasma NONE DETECTED mg/dL ()?? 05/15/2024 13:07 Barbiturate Screen, Urine NONE DETECTED ()?? 05/15/2024 14:36 Cannabinoid Screen, Urine NONE DETECTED ()?? 05/15/2024 14:36 Cocaine Metabolite Screen, Urine NONE DETECTED ()?? 05/15/2024 14:36 Benzodiazepine Screen, Urine NONE DETECTED ()?? 05/15/2024 14:36 Amphetamine Screen, Urine NONE DETECTED ()?? 05/15/2024 14:36 Opiate Screen, Urine NONE DETECTED ()?? 05/15/2024 14:36 ?? UA/URINALYSIS Appear/Color, Urine LIGHT YELLOW ()?? 05/15/2024 14:36 Specific Keo, Urine 1.017 ()?? 05/15/2024 14:36 pH, Urine 7.0 ()?? 05/15/2024 14:36 Albumin, Urine NEGATIVE ()?? 05/15/2024 14:36 Glucose, Urine NEGATIVE ()?? 05/15/2024 14:36 Ketones, Urine NEGATIVE ()?? 05/15/2024 14:36 Bilirubin, Urine NEGATIVE ()?? 05/15/2024 14:36 Hemoglobin, Urine TRACE (Abnormal)?? 05/15/2024 14:36 Nitrite, Urine POSITIVE (Abnormal)?? 05/15/2024 14:36 Leukocyte, Urine 1+ (Abnormal)?? 05/15/2024 14:36 Urobilinogen NORMAL mg/dL ()?? 05/15/2024 14:36 WBC's, Urine 18 /HPF (High)?? 05/15/2024 14:36 RBC's, Urine 7 /HPF (High)?? 05/15/2024 14:36 Bacteria SLIGHT HPF (Abnormal)?? 05/15/2024 14:36 Squamous Epith 2 /HPF ()?? 05/15/2024 14:36 Mucus SLIGHT /LPF ()?? 05/15/2024 14:36 Hold Urine Culture Testing available 48 hours from time of collection. ()?? 05/15/2024 14:36 ?? URINE OTHER Est Creatinine Clearance 78.61 mL/min ()?? 05/15/2024 14:11 ? EKG study * Event Display: ECG 12-Lead Authored Date: Please click on pdf link to open report * Event Display: ECG 12-Lead Authored Date: Ventricular Rate: 67 BPM Atrial Rate: 67 BPM P-R Interval: 106 ms QRS Duration: 68 ms Q-T Interval: 412 ms QTC Calculation(Bazett): 435 ms P [place]: 84 degrees R [place]: 53 degrees T [place]: 66 degrees Sinus rhythm with short ID Otherwise normal ECG When compared with ECG of 02-MAR-2024 09:13, No significant change was found Confirmed by AHMET MENDOZA [facility] ([id number]) on 05/15/2024 1:04:38 PM [place] * Misa Gloria RN: PERFORM, SIGN, VERIFY, MODIFY, SIGN Event Display: [facility] Authored Date: Patient: KIM VEGA Age: 64 years Sex: Female : 1960 Associated Diagnoses: None Author: Misa Gloria RN Findings Evaluation Patient alert and oriented x4. Patient refused breo ellipta, claims she does not want to inhale sandpaper . Tolerated all medications today. Refused to use walker when ambulating. Refused to drink water. Ambulated a second time before discharge. Patient was once again offered Rehab and outpatient PT. Refused. Patient notified of risks of going home without rehab or services. Patient still refusing Spoke to HCP on phone today. Was recommended to ask MD for psych consult d/t 15+ years of refusing to care for self. Doyle notified. Patient of sound mind and does not need psych eval. Patient safety remained Patient to be discharged in the evening Bed locked in lowest position and bed alarm on. Call baker within reach of patient.. Discharge Information Rehabilitation Discharge : Rehab Discharge Index 05/17/2024 6:10 EDT Comments on treatment indicated 64 F admitted post fall c subsequent L3 compression fx. TLSO. Skilled PT for amb c RW, transfers, strength, balance, safety. Rec rehab Walker: distance < 10 Distance pt will ambulate > 10 feet c RW Full chart review completed Yes Hospital course Thoracic and lumbar spines with mild L3 compression fracture which is new compared to prior imaging. Other findings see comment Plan of care PT Gait training, Transfer training, Therapeutic exercise, Functional Activities, Balance training, Neuromuscular education * Shaye JIMENEZ, Radha Greenwood: PERFORM, SIGN, VERIFY Event Display: Progress Note Hospital Authored Date: Patient: KIM VEGA Age: 64 years Sex: Female : 1960 Associated Diagnoses: None Author: Shaye JIMENEZ, Radha Greenwood Findings Narrative/Incidental Received patient alert and oriented x4. Pt went down for Xray and came back complaining of back pain when moving, TLSO Brace is inplaced. No other concerns overnight. Pt's needs were attended and call baker within reached. Safety checks inplaced. . * Shanice MENDOZA, Tita Turcios: PERFORM Event Display: Progress Note Hospital Authored Date: Patient: ??KIM VEGA ? Age:??64 Years?Sex:??Female?:??1960?? Subjective ? -Seen and examined at bedside, not endorsing any significant back pain -Physical therapy evaluation has been requested, repeat x-rays ordered by neurosurgery after brace placement -Appears very malnourished however patient states she eats very well and has gained weight recently, nutrition consult has been requested either way ?? -On ceftriaxone for UTI concerns, this is likely cause behind her weakness and fall, follow urine culture ?? -Anticipate could discharge 05/17 based on PT recommendations -Seems like neurosurgery team will arrange follow-up in 4-6 weeks for reevaluation ?? Review of Systems Other than those positives as noted above, the remaining comprehensive 14-point review of systems is negative. Objective Vital Signs?? Temperature: 98.6 DegF (05/16/24 13:48:00) Temperature Route: Oral (05/16/24 13:48:00) Pulse Rate: 65 bpm (05/16/24 13:48:00) Respiratory Rate: 19 br/min (05/16/24 13:55:00) Systolic Blood Pressure: 117 mm Hg (05/16/24 13:48:00) Diastolic Blood Pressure: 67 mm Hg (05/16/24 13:48:00) Blood pressure sites: Arm, left (05/16/24 13:48:00) Mean Arterial Pressure: 84 mm Hg (05/16/24 13:48:00) Pulse Pressure: 50 mm Hg (05/16/24 13:48:00) Oxygen Saturation: 97 % (05/16/24 13:48:00) Mode of Delivery (Oxygen): Room air (05/16/24 12:58:00) Early Warning Score: 0 (05/16/24 14:31:42) ? Intake/Output? No Data Available ? Physical Exam General: Frail and cachectic Respiratory: Clear to auscultation Cardiac: Regular rate rhythm no murmurs Abdomen: Scaphoid,??no tenderness, normal bowel sounds Extremities: No edema Neuro: No focal deficits _ Home Medications Acetaminophen (Tylenol 8 HR Arthritis [...] mg/5 mL oral solution)?5?Milliliter?5?Milligram?By Mouth?Every 8 hours Pantoprazole (pantoprazole 40 mg oral delayed release tablet)?1?tab(s)?40?Milligram?By Mouth?Daily PROCHLORperazine (prochlorperazine 10 mg oral tablet)?1?tab(s)?10?Milligram?By Mouth?Every 6 hours?as needed?nausea/vomiting?may cause drowsiness Senna (senna 8.8 mg/5 mL oral syrup)?10?Milliliter?17.6?Milligram?By Mouth?Daily at bedtime?as needed?for constipation Voriconazole (voriconazole 200 mg oral tablet)?200?Milligram?By Mouth?Every 12 hours?for 30?Days Warfarin (warfarin 3 mg oral tablet)?1?tab(s)?3?Milligram?By Mouth?Daily at supper ? Inpatient Medications Medications (7) Active SCHEDULED: (5) Breo Ellipta 200 mcg / 25 mcg Inhaler (Breo Ellipta 200 mcg-25 mcg Inhaler) ??1 puffs, Inhalation, Daily Ceftriaxone 1 Gm Inj (Ceftriaxone Inj) ??1 Gm, IVPB, Every 24 hours Olanzapine 2.5 mg Tablet (olanzapine 2.5 mg oral tablet) ??2.5 mg, By Mouth, Daily at bedtime Pantoprazole 20 mg EC Tablet (pantoprazole 20 mg oral delayed release tablet) ??20 mg, By Mouth, Daily Warfarin 3 mg Tablet (Warfarin) ??3 mg, By Mouth, Daily at supper CONTINUOUS: (0) PRN: (2) Ondansetron 2mg/mL Inj (2mL Vial) (Ondansetron Inj) ??4 mg, IV Push Slowly, Every 30 minutes OxyCODONE 5 mg IR Tablet (oxyCODONE 5 mg oral tablet) ??5 mg, By Mouth, Every 6 hours ? 72 Hour Antibiotic History Stopped Antibiotics Stop Date/Time Last Administered First Administered Ceftriaxone??1 Gm, 100 mL/hr, IVPB, Once 05/15/2024 17:03 05/15/2024 16:54 05/15/2024 16:54 ? Results Abnormal Labs ?? CARDIAC High Sensitivity Troponin (HSTnT)?25 ng/L (High) ??05/15/2024 16:09 ?? Note: Critical results are displayed in red. ? Assessment/Plan ? 64-year-old female patient with history of locally advanced laryngeal carcinoma diagnosed in October 2023 s/p chemotherapy and radiation (completed), chronic malnutrition, pulmonary aspergillosis on voriconazole, COPD, ongoing tobacco abuse, peripheral artery disease, history of recent CVA with residual weakness, hypercoagulable state on warfarin who was brought to the emergency departmentfor evaluation of fall in setting of new weakness.??She had a dirty UA with +1 leukocyte and positive nitrite.?? She had a bella CT scan.?? CT scan Thoracic and lumbar spines with mild L3 compression fracture which is new compared to prior imaging.??Neurosurgery was consulted with no new surgical interventionswarranted ?? On treatment for UTI Awaiting PT evaluation ? Weakness (R53.1) ?Grouped with??Compression fracture of spine (M48.50XA),??Fall (W19.XXXA) ? Patient with??progressive weakness??who sustained a fall , likely??secondary to??increased??frailty in the setting of advanced??laryngeal carcinoma??combined with??recent stroke with residual weakness and concerns for UTI Pending scan??with evidence of L3 compression fracture.??Otherwise??unremarkable. Evaluated by neurosurgery with no neurosurgical interventions warranted Every 4 neurochecks. TLSO brace will be ordered??from O&P lab -Physical therapy evaluation has been requested, repeat x-rays ordered by neurosurgery after brace placement -Appears very malnourished however patient states she eats very well and has gained weight recently, nutrition consult has been requested either way ? Urinary Tract Infection (N39.0) -On ceftriaxone for UTI concerns, this is likely cause behind her weakness and fall, follow urine culture ? History of CVA (cerebrovascular accident) (Z86.73):??Fairly recent, with residual weakness. Was deemed to be embolic,??on Coumadin. ?? FTT (failure to thrive) in adult (R62.7) ?Grouped with??Laryngeal carcinoma (C32.9),??Malnutrition (E46) ? Patient with advanced laryngeal carcinoma??with??severe malnutrition, inability to thrive. No longer has GJ tube for feeding. Nutrition consultation requested. ?? Hypercoagulable state (D68.59) ?Grouped with??Current use of electrical project manager anticoagulation (Z79.01) ? Hypercoagulable state, on warfarin. Resume. ?? VTE Prophylaxis:??On Coumadin ?VTE Prophylaxis Assessment:??VTE Prophylaxis Ordered ? Code Status:??DNR/DNI, reviewed with the patient at the bedside ?Order Code Status:??Code Status Ordered ?? -Anticipate could discharge 05/17 based on PT recommendations -Seems like neurosurgery team will arrange follow-up in 4-6 weeks for reevaluation Note * Misa Gloria RN: PERFORM Event Display: Discharge/Transfer Note Hospital Authored Date: [id number] Nursing Discharge Note Entered On: 05/17/2024 18:50 EDT Performed On: 05/17/2024 18:50 EDT by Misa Gloria RN Nursing Discharge Note 2 Discharge Time : 05/17/2024 18:20 EDT Discharge Level of Care at Discharge : Home/Usp/Foster Care Patient Left Unit Via : Wheelchair Patient Accompanied Off Unit with : Responsible adult DC Instructions Provided & Signed by Pt : Yes Patient Understands D/C Instructions : Yes Patient Instructions Discharge Signed : Yes Did Pt have Specialty Bed or Wound Vac : Yes Misa Gloria RN - 05/17/2024 18:50 EDT * Vin MENDOZA, Doyle Marrero: PERFORM, MODIFY, MODIFY, MODIFY, MODIFY, MODIFY, MODIFY, MODIFY, MODIFY Event Display: Discharge/Transfer Note Hospital Authored Date: [id number] Patient: ??KIM VEGA ? Age:??64 Years?Sex:??Female?:??1960?? Patient Information Discharge Location: S2 Primary Care Physician: Not on Staff, PCP Admit Date/Time: 05/15/24 22:17 Discharge Disposition Discharge Disposition: Home: No Services Discharge Diagnosis Current use of electrical project manager anticoagulation (Z79.01) Hypercoagulable state (D68.59) FTT (failure to thrive) in adult (R62.7) Laryngeal carcinoma (C32.9) Malnutrition (E46) Fall (W19.XXXA) History of CVA (cerebrovascular accident) (Z86.73) Weakness (R53.1) Compression fracture of spine (M48.50XA) UTI (urinary tract infection) (N39.0) _ Discharge Medications Acetaminophen (Tylenol 8 HR Arthritis Pain 650 mg oral tablet, extended release)?2?tab(s)?1,300?Milligram?By Mouth?Every 8 hours?as needed?as needed for pain Albuterol (ProAir HFA 90 mcg/inh inhalation aerosol with adapter)?2?puff(s)?Inhalation?4 times a day?as needed?as needed for wheezing Albuterol (albuterol 0.083% inhalation solution)?3?Milliliter?2.5?Milligram?Inhalation?Every 6 hours?as needed?for wheezing Budesonide-Formoterol (Symbicort 80mcg/4.5mcg Inhaler)?2?puff(s)?Inhalation?2 times a day Cephalexin (cephalexin monohydrate 500 mg oral capsule)?1?capsule?500?Milligram?By Mouth?4 times a day?for 3?Days Cholecalciferol (Vitamin D3 1000 intl units oral capsule)?1?capsule?25?Microgram?By Mouth?Daily?for 30?Days Dexamethasone (dexamethasone 4 mg oral tablet)?See Instructions?1 [...] appt and cover with plastic Miscellaneous Rx (outpatient physical therapy eval and treat)?See Instructions?Diagnosis: lumbar compression fracture, unsteady gait Nicotine (Nicoderm C-Q Clear 21 mg/24 hr transdermal film, extended release)?1?patch(es)?Topically?Daily Olanzapine (olanzapine 2.5 mg oral tablet)?1?tablet?By Mouth?Daily at bedtime? DIRECTED. Ondansetron (ondansetron 8 mg oral tablet)?1?tab(s)?8?Milligram?By Mouth?Every 8 hours?as needed?as needed for nausea/vomiting Oxycodone (oxyCODONE 5 mg/5 mL oral solution)?5?Milliliter?5?Milligram?By Mouth?Every 8 hours?as needed?Pain , Severe?for 7?Days Pantoprazole (pantoprazole 40 mg oral delayed release tablet)?1?tab(s)?40?Milligram?By Mouth?Daily PROCHLORperazine (prochlorperazine 10 mg oral tablet)?1?tab(s)?10?Milligram?By Mouth?Every 6 hours?as needed?nausea/vomiting?may cause drowsiness Senna (senna 8.8 mg/5 mL oral syrup)?10?Milliliter?17.6?Milligram?By Mouth?Daily at bedtime?as needed?for constipation Voriconazole (voriconazole 200 mg oral tablet)?200?Milligram?By Mouth?Every 12 hours?for 30?Days Warfarin (warfarin 3 mg oral tablet)?1?tab(s)?3?Milligram?By Mouth?Daily at supper ? Quality Measures Tobacco Use Treatment:? Inpatient Medications Medications (8) Active SCHEDULED: (5) Budesonide 0.5 mg/ 2 mL Inhalation Susp (budesonide 0.5 mg/2 mL inhalation suspension) ??0.5 mg 2 mL, BAND Nebulizer, 2 times a day Ceftriaxone 1 Gm Inj (Ceftriaxone Inj) ??1 Gm, IVPB, Every 24 hours Olanzapine 2.5 mg Tablet (olanzapine 2.5 mg oral tablet) ??2.5 mg, By Mouth, Daily at bedtime Pantoprazole 20 mg EC Tablet (pantoprazole 20 mg oral delayed release tablet) ??20 mg, By Mouth, Daily Warfarin 3 mg Tablet (Warfarin) ??3 mg, By Mouth, Daily at supper CONTINUOUS: (0) PRN: (3) Albuterol 90mcg/Inhalation Inhaler HFA (Ventolin 90 mcg Inhaler) ??180 mcg 2 puffs, Inhalation, Every 4 hours Ondansetron 2mg/mL Inj (2mL Vial) (Ondansetron Inj) ??4 mg, IV Push Slowly, Every 30 minutes OxyCODONE 5 mg IR Tablet (oxyCODONE 5 mg oral tablet) ??5 mg, By Mouth, Every 6 hours ? Allergies Allergies ?(Active and Proposed Allergies Only) Darvon? (Severity: Unknown severity, Onset: Unknown) ?Reactions: difficulty breathing hydrochlorothiazide? (Severity: Unknown severity, Onset: Unknown) ?Reactions: unknown doxycycline? (Severity: Unknown severity, Onset: Unknown) ?Reactions: vomiting ? Hospital Course Patient is a 64-year-old female, history of locally advanced laryngeal carcinoma, status postchemotherapy, radiation, chronic malnutrition, history of pulmonary aspergillosis, COPD, ongoing tobacco use, peripheral arterial disease, history of CVA with residual weakness, history of hypercoagulable state, on warfarin, presented here for evaluation after a fall.?? She had imaging which showed incidental L3 compression fracture, which is new compared to prior imaging.?? Neurosurgery consulted, recommended no surgical interventions.?? Noted to have malnutrition, nutrition consult has been requested.?? UA was abnormal and empirically on Rocephin, pending urine cultures.?? PT evaluation requested.?? Neurosurgery recommended soft TLSO brace and outpatient follow-up with neurosurgery in 4 to 6 weeks and x-ray after brace fitting, mild superior endplate vertebral compression fracture at L3, loss of disc space height at L2- L3 level ?? Weakness (R53.1) Acute compression fracture of lumbar??spine (M48.50XA)??secondary to fall (W19.XXXA) ? Patient with progressive weakness who sustained a fall , likely secondary to increased frailty in the setting of advanced laryngeal carcinoma combined with recent stroke with residual weakness and concerns for UTI ??scan with evidence of L3 compression fracture. Otherwise unremarkable. Evaluated by neurosurgery with no neurosurgical interventions warranted Patient is currently fitted in a TLSO brace, she has to continue this with activity. PT evaluated and strongly recommended rehab.?? Attempted to discuss with her and convince her to goto rehab??as per PT recommendations??and explained benefits of going to rehab which will be to??improve her functionality, reduce fall risk versus going home??which might??result in increased risk of??fall and chance of further progression of weakness. ??She adamantly refused to go to rehab??or even get physical therapy services at home or follow-up outpatient. ??She appears alert and oriented x 4.?? regional marketing manager, RN,??all attempted to talk to her about rehab??as well, but she is absolutely??adamant??about this. -Appears very malnourished however patient states she eats very well and has gained weight recently, nutrition consult has been requested either way.?? Unfortunately, she refused to discuss further with hvac service tech ?? Severe protein calorie malnutrition Seen by clinical nutrition??team ?? Urinary Tract Infection (N39.0)??secondary to Klebsiella Received 2 days of Rocephin, finish course with 3 more days of Keflex ?? History of CVA (cerebrovascular accident) (Z86.73): Fairly recent, with residual weakness. Was deemed to be embolic, on Coumadin.?? Reiterated that she should be compliant with warfarin and she should have a follow-up INR??in a few days. ?? FTT (failure to thrive) in adult (R62.7) ? Grouped with Laryngeal carcinoma (C32.9), Malnutrition (E46) ? Patient with advanced laryngeal carcinoma with severe malnutrition, inability to thrive. She refused to discuss with clinical nutrition??team??and reports that she has been eating okay She says that she ran out of voriconazole and requests a refill and wants to be sent to [facility] ?? Hypercoagulable state (D68.59) ? Grouped with Current use of halfway anticoagulation (Z79.01) ? Hypercoagulable state, on warfarin. Resume. ?? -Seems like neurosurgery team will arrange follow-up in 4-6 weeks for reevaluation ?? Patient is refusing to go to rehab. ??She wants to leave the hospital today and want to go home.?? She reports that she has a walker at home??and feels??confident that she can??ambulate safely at home.?? Later in the afternoon, RN attempted to ambulate, she was noted to be unsteady??and after this evaluation, she was asked again whether she would consider rehab??or physical therapy, she is adamantly refusing.?? Understands the risks of fall. Objective Vital Signs?? Temperature: 97.6 DegF (05/17/24 07:59:00) Temperature Route: Oral (05/17/24 07:59:00) Pulse Rate: 64 bpm (05/17/24 07:59:00) Respiratory Rate: 19 br/min (05/17/24 07:59:00) Systolic Blood Pressure:??147 mm Hg??High (05/17/24 07:59:00) Diastolic Blood Pressure: 66 mm Hg (05/17/24 07:59:00) Blood pressure sites: Arm, right (05/17/24 07:59:00) Mean Arterial Pressure: 93 mm Hg (05/17/24 07:59:00) Pulse Pressure: 81 mm Hg (05/17/24 07:59:00) Oxygen Saturation: 95 % (05/17/24 07:59:00) Mode of Delivery (Oxygen): Room air (05/17/24 07:59:00) Early Warning Score: 5 (05/17/24 08:00:01) ? . Physical Exam Constitutional: Alert, in no acute distress.?? She is thin, cachectic Mental Status: Oriented to person, place and time. Head: Normocephalic. Respiratory: Clear to auscultation Cardiovascular: Regular rate and rythm. Wearing TLSO brace Musculoskeletal: She reports that she moves her right leg better compared to her left leg. Consultants PT, neurosurgery Pending Results Add On Lab Order ordered on 05/15/2024 INR ordered on 05/16/2024 Patient Education Titles WebMD Ignite Patient Education - Depression: Tips to Help Yourself?? WebMD Ignite Patient Education - Depression?? Follow-Up Appointments Added Follow Up ?Time Frame ?Comments Mark MENDOZA , Jennifer Darnell?Please call and make a follow-up appointment as soon as feasible Patient Instructions You have urinary tract infection, finish course of antibiotics with cephalexin for 3 more days. ?? Please make sure you are taking warfarin, your INR is noted to be low. ??You?? would need a follow-up INR??within 5 to 7 days, please coordinate this. ?? If you are unable to ambulate or having increasing pain, you should seek immediate medical attention. ??If you are unable to move your legs, increasing numbness, you?? would need to seek immediate medical attention??as well.? In case of any worsening of symptoms, please return to ER immediately??by calling 911. ?? Please note that we do recommend rehab??.?physical therapy??would??benefit you.?? If you are notprogressing as expected, please return to ER. ??Please be cautious with walking??and ask family members to to stay with you??for the next few days Home Health Face to Face ^HomeHealthFTF Results Discharge Labs BACTERIOLOGY Urine Culture Results Preliminary report (Abnormal)?? 05/15/2024 14:36 Urine Culture Specimen Source URINE ()?? 05/15/2024 14:36 Urine Culture Isolate 1 Gram negative rods (Abnormal)?? 05/15/2024 14:36 ? BLOOD BANK Blood Type O Positive ()?? 05/15/2024 12:18 Antibody Screen Negative ()?? 05/15/2024 12:18 ?? BLOOD COUNT & DIFF WBC 5.7 k/mm3 ()?? 05/17/2024 01:44 RBC 4.21 m/mm3 ()?? 05/17/2024 01:44 Hgb 10.5 Gm/dL (Low)?? 05/17/2024 01:44 Hct 34.0 % (Low)?? 05/17/2024 01:44 MCV 80.8 femtoliters ()?? 05/17/2024 01:44 MCH 24.9 pg (Low)?? 05/17/2024 01:44 MCHC 30.9 Gm/dL (Low)?? 05/17/2024 01:44 Platelet Count 156 k/mm3 ()?? 05/17/2024 01:44 RDW-SD 58.5 femtoliters (High)?? 05/17/2024 01:44 MPV 9.3 femtoliters (Low)?? 05/17/2024 01:44 Nucleated RBC (Automated) 0.0 #/100 WBC'S ()?? 05/17/2024 01:44 Abs. NRBC 0.0 k/mm3 ()?? 05/17/2024 01:44 Abs. Neut 5.2 k/mm3 ()?? 05/15/2024 13:07 Abs. Lymph 0.5 k/mm3 (Low)?? 05/15/2024 13:07 Abs. Dyer 0.5 k/mm3 ()?? 05/15/2024 13:07 Abs. Eo 0.1 k/mm3 ()?? 05/15/2024 13:07 Abs. Baso 0.0 k/mm3 ()?? 05/15/2024 13:07 Neut % 81.3 % (High)?? 05/15/2024 13:07 Lymph % 8.5 % (Low)?? 05/15/2024 13:07 Dyer % 8.3 % ()?? 05/15/2024 13:07 Eos % 1.1 % ()?? 05/15/2024 13:07 Baso % 0.3 % ()?? 05/15/2024 13:07 Imm Gran 0.5 % ()?? 05/15/2024 13:07 Abs. Imm Gran 0.0 k/mm3 ()?? 05/15/2024 13:07 ?? CARDIAC CK, Total 253 units/L (High)?? 05/15/2024 13:07 High Sensitivity Troponin (HSTnT) 25 ng/L (High)?? 05/15/2024 16:09 ?? CHEM GENERAL Sodium 135 mmol/L ()?? 05/17/2024 01:44 Potassium 4.4 mmol/L ()?? 05/17/2024 01:44 Chloride 99 mmol/L ()?? 05/17/2024 01:44 Bicarbonate Level 22 mmol/L ()?? 05/17/2024 01:44 Anion Gap 14 ()?? 05/17/2024 01:44 Glucose Level 92 mg/dL ()?? 05/17/2024 01:44 Glucose, POC 95 mg/dL ()?? 05/15/2024 12:39 BUN 17 mg/dL ()?? 05/17/2024 01:44 Creatinine-Blood 0.74 mg/dL ()?? 05/17/2024 01:44 Estimated GFR Creatinine 91 ML/MIN/1.73 M2 ()?? 05/17/2024 01:44 Phosphorus 4.7 mg/dL (High)?? 05/17/2024 01:44 Magnesium 1.9 mg/dL ()?? 05/17/2024 01:44 Alkaline Phosphatase 105 units/L (High)?? 05/15/2024 13:07 Lipase 17 units/L ()?? 05/15/2024 13:07 AST (SGOT) 23 units/L ()?? 05/15/2024 13:07 ALT (SGPT) 13 units/L ()?? 05/15/2024 13:07 Bilirubin, Total <0.2 mg/dL ()?? 05/15/2024 13:07 Lactate 1.1 mmol/L ()?? 05/15/2024 13:07 ?? COAG INR 1.0 ()?? 05/17/2024 01:44 Protime (PT) 10.5 seconds ()?? 05/17/2024 01:44 ?? TOXICOLOGY/TDM Ethanol, Serum or Plasma NONE DETECTED mg/dL ()?? 05/15/2024 13:07 Barbiturate Screen, Urine NONE DETECTED ()?? 05/15/2024 14:36 Cannabinoid Screen, Urine NONE DETECTED ()?? 05/15/2024 14:36 Cocaine Metabolite Screen, Urine NONE DETECTED ()?? 05/15/2024 14:36 Benzodiazepine Screen, Urine NONE DETECTED ()?? 05/15/2024 14:36 Amphetamine Screen, Urine NONE DETECTED ()?? 05/15/2024 14:36 Opiate Screen, Urine NONE DETECTED ()?? 05/15/2024 14:36 ? UA/URINALYSIS Appear/Color, Urine LIGHT YELLOW ()?? 05/15/2024 14:36 Specific Keo, Urine 1.017 ()?? 05/15/2024 14:36 pH, Urine 7.0 ()?? 05/15/2024 14:36 Albumin, Urine NEGATIVE ()?? 05/15/2024 14:36 Glucose, Urine NEGATIVE ()?? 05/15/2024 14:36 Ketones, Urine NEGATIVE ()?? 05/15/2024 14:36 Bilirubin, Urine NEGATIVE ()?? 05/15/2024 14:36 Hemoglobin, Urine TRACE (Abnormal)?? 05/15/2024 14:36 Nitrite, Urine POSITIVE (Abnormal)?? 05/15/2024 14:36 Leukocyte, Urine 1+ (Abnormal)?? 05/15/2024 14:36 Urobilinogen NORMAL mg/dL ()?? 05/15/2024 14:36 WBC's, Urine 18 /HPF (High)?? 05/15/2024 14:36 RBC's, Urine 7 /HPF (High)?? 05/15/2024 14:36 Bacteria SLIGHT HPF (Abnormal)?? 05/15/2024 14:36 Squamous Epith 2 /HPF ()?? 05/15/2024 14:36 Mucus SLIGHT /LPF ()?? 05/15/2024 14:36 Hold Urine Culture Testing available 48 hours from time of collection. ()?? 05/15/2024 14:36 ? URINE OTHER Est Creatinine Clearance 43.55 mL/min ()?? 05/17/2024 03:06 ? 40??minutes spent on discharge * Misa Gloria RN: PERFORM Event Display: Patient Education/Instruction Authored Date: [id number] Inpatient Adult Discharge Instructions. [address] [address] Name: KIM VEGA : 1960?? Visit: 05/15/2024 22:17?? Current Date: 05/17/2024 16:19 ?? Account: [id number]?? Inpatient Adult Discharge Instructions We would like [...] and their families. Surveys are administered by [employer] ?? If further treatment with your primary care physician or another doctor is recommended, it is important for you to keep the appointment. Call your primary care physician or return to the Emergency Department immediately if your condition worsens, fails to improve, or new symptoms develop. If you need to find a doctor, you can call [facility] [employer] Link for a referral at [phone] or toll free at [phone]) or log in to [email or web address].. ?? [facility], in keeping with [facility] guidance, no longer requires face masks for [...] a health care clarissa of your choosing. [employer] is a website that allows you to securely view your medical information including your hospital discharge summary, office visit summaries, medications and follow-up visits. You can also request appointments, renew medications, and request access to your medical information using a health care clarissa of your choosing, or just ask a question. You can enroll at [email or web address] or register during your next office visit. You have been discharged from [facility], Patient Care Unit: S2??. If you have any questions regarding these instructions, including results of studies pending, afteryou leave, please call us and we will be happy to assist you 06/03. [facility] Your Care Team Attending Physician Vin MENDOZA, Doyle Marrero?? Consulting Providers Vin MENDOZA, Doyle Marrero?? Discharging Providers Vin MENDOZA, Doyle Marrero Reason for Your Visit rolled OOB three hours ago. Hit head and back on wall. no LOC. supposed to be on eloquis but has not been taking it. c/o neck JUAREZ and back pain. redness to back. Was able to stand and poivot. Hx of right sided deficit from old stroke?? Your Diagnosis Compression fracture of spine Current use of halfway anticoagulation Fall FTT (failure to thrive) in adult General medical History of CVA (cerebrovascular accident) Hypercoagulable state Laryngeal carcinoma Malnutrition UTI (urinary tract infection) Weakness Tests Performed Below is a partial list of the tests performed during your hospitalization. You may have had other tests and procedures not included in this list. Please discuss all test results with your provider. Alcohol Level Alk Phos ALT Amphetamine Urine Screen AST Barbiturate Urine Screen Benzodiazepine Urine Screen BUN Cannabinoid Urine Screen CBC CBC w/ Differential Cocaine Urine Screen CPK Total Only Creatinine Electrolytes Glucose Level GLUCOSE POC High??Sensitivity??Troponin T INR Lactate Level Lipase Magnesium Level Opiate Screen Urine Phosphorus Level Total Bilirubin Type and Screen Urinalysis w/hold for Urine Culture Urine Culture Result Urine Culture, Routine CT Abd/Pelvis W/ IV Contrast Only CT Cervical Spine W/O Contrast CT Chest W/ Contrast CT Head/Brain W/O Contrast CT Lumbar Spine W/ IV Contrast CT Thoracic Spine W/ IV Contrast Spine Lumbar 2 or 3 Views XR Ankle Min 3 Views Left XR Femur 2 Views Left XR Forearm 2 Views Left XR Humerus Min 2 Views Left XR Shoulder Min 2 Views Left XR Tibia/Fibula 2 Views Left ALT?? AST?? Add On Lab Order?? Alk Phos?? Amphetamine Urine Screen?? BUN?? Barbiturate Urine Screen?? Benzodiazepine Urine Screen?? Bilirubin Total (Total Bilirubin)?? CBC?? CBC w/ Differential?? CPK Total Only?? CT Abd/Pelvis W/ IV Contrast Only?? CT Cervical Spine W/O Contrast?? CT Chest W/ Contrast?? CT Head/Brain W/O Contrast?? CT Lumbar Spine W/ Contrast (CT Lumbar Spine W/ IV Contrast)?? CT Thoracic Spine W/ Contrast (CT Thoracic Spine W/ IV Contrast)?? Cannabinoid Urine Screen?? Cocaine Urine Screen?? Creatinine?? Electrolytes?? Ethanol Level (Alcohol Level)?? Glucose Level?? Glucose POC?? High??Sensitivity??Troponin T?? INR?? Lactic Acid Level (Lactate Level)?? Lipase?? Magnesium Level?? Opiate Screen Urine?? Phosphorus Level?? Type and Screen?? Urinalysis w/hold for Urine Culture?? Urine Culture (Urine Culture, Routine)?? Urine Culture Result?? Ankle Min 3 Views Left (XR Ankle Min 3 Views Left)?? Femur 2 Views Left (XR Femur 2 Views Left)?? Forearm 2 Views Left (XR Forearm 2 Views Left)?? Humerus Min 2 Views Left (XR Humerus Min 2 Views Left)?? Lumbar Spine 2 or 3 Views (Spine Lumbar 2 or 3 Views)?? Shoulder Min 2 Views Left (XR Shoulder Min 2 Views Left)?? Tibia/Fibula 2 Views Left (XR Tibia/Fibula 2 Views Left)?? Primary Care Provider Mark MENDOZA , Jennifer Darnell? Advance Directive Health Care Proxy on File Yes - Health Care Proxy Discharge Vitals Temperature: 98.2 DegF Height: 155 cm Pulse Rate: 72 bpm Weight: 35 kg Respiratory Rate: 20 br/min Body Mass Index:??14.57 kg/m2??Low Systolic Blood Pressure: 118 mm Hg Body surface area: 1.23 Diastolic Blood Pressure: 64 mm Hg ?? Oxygen Saturation: 94 % ?? Studies Pending All studies ordered during this hospital stay have been completed unless listed below. Please discuss all pending results with your provider listed above in these instructions. ?? Add On Lab Order?? INR?? What to do next Instructions From Your Doctor You have urinary tract infection, finish course of antibiotics with cephalexin for 3 more days. ?? Please make sure you are taking warfarin, your INR is noted to be low. ??You?? would need a follow-up INR??within 5 to 7 days, please coordinate this. ?? If you are unable to ambulate or having increasing pain, you should seek immediate medical attention. ??If you are unable to move your legs, increasing numbness, you?? would need to seek immediate medical attention??as well.? In case of any worsening of symptoms, please return to ER immediately??by calling 911. ?? Please note that we do recommend rehab??.?physical therapy??would??benefit you.?? If you are notprogressing as expected, please return to ER. ??Please be cautious with walking??and ask family members to to stay with you??for the next few days ?? Orders??:Regular Diet :Ambulate with assistance, please follow-up with physical therapy? 05/17/24 15:48:00 EDT?? Scheduled Follow-Up Appointments Monday 11:30 AM EST ?? Where: [address] [place] [id number]- Status: Pending You Need to Schedule the Following Appointments Follow Up with??Mark MENDOZA , Jennifer Darnell Why: Please call and make a follow-up appointment as soon as feasible Where: [address] [place] [address]- Discharge Medications KIM VEGA :1960 Visit Date:05/15/2024 Medications: Please continue your medications until treatment is completed or stopped by your provider. Medications not listed below should be discontinued. Discuss any questions related to medications with your provider. What How Much When Instructions Next Dose New Cephalexin (cephalexin monohydrate 500 mg oral capsule) 1 capsule Oral 4 times a day Duration: 3 [facility] 05/18 New Cholecalciferol (Vitamin D3 1000 intl units oral capsule) 1 capsule Oral Daily Duration: 30 Days Pickup at [facility] 3 05/18 New Miscellaneous Rx (outpatient physical therapy eval and treat) See instructions Diagnosis: lumbar compression fracture, unsteady gait ?? Printed Prescription Changed Oxycodone (oxyCODONE 5 mg/ 5 mL oral solution) 5 Milliliter Oral Every 8 hours as needed for Pain , Severe Duration: 7 Days Pickup at [facility] 3 Unchanged Acetaminophen (Tylenol 8 HR Arthritis Pain 650 mg oral tablet, extended release) 2 tab(s) Oral Every 8 hours as needed for as needed for pain Unchanged Albuterol (albuterol 0.083% inhalation solution) 3 Milliliter Inhalation Every 6 hours as needed for for wheezing Unchanged Albuterol (ProAir HFA 90 mcg/ inh inhalation aerosol with adapter) 2 puff(s) Inhalation 4 times a day as needed for as needed for wheezing Unchanged Budesonide-Formoterol (Symbicort 80mcg/ 4.5mcg Inhaler) 2 puff(s) Inhalation Twice a day 9PM 05/17 Unchanged Dexamethasone (dexamethasone 4 mg oral tablet) See instructions 1 tab (4mg) By Mouth once a day for 3 days as directed after chemo, with food ?? Unchanged Durable Medical Equipment (Cane) See instructions 1 each ?? Unchanged Durable Medical Equipment (Walker) See instructions 1 walker pt 5ft1in 74# rx for difficulty ambulating due to history of CVA, deconditioning ?? Unchanged Lactulose (lactulose 10 gm/ 15 ml oral syrup) 15 Milliliter Oral Daily as needed for as needed for constipation Unchanged Lidocaine/ Prilocaine Topical (lidocaine-prilocaine 2.5%-2.5% topical cream) See instructions apply small dollop to [facility] 1 hr prior to appt and cover with plastic ?? Unchanged Nicotine (Nicoderm C-Q Clear 21 mg/ 24 hr transdermal film, extended release) 1 patch(es) Topically Daily 05/18 Unchanged Olanzapine (olanzapine 2.5 mg oral tablet) 1 tab(s) Oral Daily at Bedtime DIRECTED. ?? 9PM 05/17 Unchanged Ondansetron (ondansetron 8 mg oral tablet) 1 tab(s) Oral Every 8 hours as needed for as needed for nausea/vomiting Unchanged Pantoprazole (pantoprazole 40 mg oral delayed release tablet) 1 tab(s) Oral Daily 9AM 05/18 Unchanged PROCHLORperazine (prochlorperazine 10 mg oral tablet) 1 tab(s) Oral Every 6 hours as needed for nausea/vomiting may cause drowsiness ?? Unchanged Senna (senna 8.8 mg/ 5 mL oral syrup) 10 Milliliter Oral Daily at Bedtime as needed for for constipation Unchanged Voriconazole (voriconazole 200 mg oral tablet) 200 Milligram Oral Every 12 hours Duration: 30 Days Pickup at [facility]/pharmacy #[id number] 9AM 05/18 Unchanged Warfarin (warfarin 3 mg oral tablet) [facility]) [facility] Pharmacy Information [facility]/pharmacy #[id number]: [address] [place] [phone] [facility] 3: [address] [place] [phone] Prescription Given During Visit Cephalexin (cephalexin monohydrate 500 mg oral capsule) - 1 capsule = 500 mg, By Mouth, 4 times a day, # 12 capsule, 0 Refills, [address] [address] [phone]?? Cholecalciferol (Vitamin D3 1000 intl units oral capsule) - 1 capsule = 25 mcg, By Mouth, Daily, # 30 capsule, 0 Refills, [address] [address] [phone]?? Miscellaneous Rx (outpatient physical therapy eval and treat) - , # 1 each, 0 Refills, Diagnosis: lumbar compression fracture, unsteady gait?? Oxycodone (oxyCODONE 5 mg/5 mL oral solution) - 5 mL = 5 mg, By Mouth, Every 8 hours, # 105 mL, 0 Refills, [facility] [address] [address] [phone]?? Voriconazole (voriconazole 200 mg oral tablet) - 200 mg, By Mouth, Every 12 hours, # 60 tablet, 3 Refills, [id number] [address] [place] [phone]?? Laboratory Results Below is a partial list of the most recent Laboratory test results done prior to this discharge. You may have had other tests and procedures not included in this list. Please discuss all test resultswith your provider. Est Creatinine Clearance - 43.55 mL/min (05/17/2024) Alcohol Level (05/15/2024) ???Ethanol, Serum or Plasma - NONE DETECTED Alk Phos (05/15/2024) ???Alkaline Phosphatase - 105 units/L ALT (05/15/2024) ???ALT (SGPT) - 13 units/L Amphetamine Urine Screen (05/15/2024) ???Amphetamine Screen, Urine - NONE DETECTED AST (05/15/2024) ???AST (SGOT) - 23 units/L Barbiturate Urine Screen (05/15/2024) ???Barbiturate Screen, Urine - NONE DETECTED Benzodiazepine Urine Screen (05/15/2024) ???Benzodiazepine Screen, Urine - NONE DETECTED BUN (05/17/2024) ???BUN - 17 mg/dL Cannabinoid Urine Screen (05/15/2024) ???Cannabinoid Screen, Urine - NONE DETECTED CBC (05/17/2024) ???WBC - 5.7 k/mm3???RBC - 4.21 m/mm3???Hgb - 10.5 Gm/dL???Hct - 34.0 %???MCV - 80.8 femtoliters???MCH - 24.9 pg???MCHC - 30.9 Gm/dL???Platelet Count - 156 k/mm3???RDW-SD - 58.5 femtoliters???MPV - 9.3 femtoliters???Nucleated RBC (Automated) - 0.0 #/100 WBC'S???Abs. NRBC - 0.0 k/mm3 CBC w/ Differential (05/15/2024) ???WBC - 6.4 k/mm3???RBC - 3.98 m/mm3???Hgb - 9.9 Gm/dL???Hct - 33.6 %???MCV - 84.4 femtoliters???MCH - 24.9 pg???MCHC - 29.5 Gm/dL???Platelet Count - 195 k/mm3???RDW-SD - 63.0 femtoliters???MPV - 9.1 femtoliters???Nucleated RBC (Automated) - 0.0 #/100 WBC'S???Abs. NRBC - 0.0 k/mm3???Abs. Neut - 5.2 k/mm3???Abs. Lymph - 0.5 k/mm3???Abs. Dyer - 0.5 k/mm3???Abs. Eo - 0.1 k/mm3???Abs. Baso - 0.0 k/mm3???Neut % - 81.3 %???Lymph % - 8.5 %???Dyer % - 8.3 %???Eos % - 1.1 %???Baso % - 0.3 %???Imm Gran - 0.5 %???Abs. Imm Gran - 0.0 k/mm3 Cocaine Urine Screen (05/15/2024) ???Cocaine Metabolite Screen, Urine - NONE DETECTED CPK Total Only (05/15/2024) ???CK, Total - 253 units/L Creatinine (05/17/2024) ???Creatinine-Blood - 0.74 mg/dL???Estimated GFR Creatinine - 91 ML/MIN/1.73 M2 Electrolytes (05/17/2024) ???Sodium - 135 mmol/L???Potassium - 4.4 mmol/L???Chloride - 99 mmol/L???Bicarbonate Level - 22 mmol/L???Anion Gap - 14 Glucose Level (05/17/2024) ???Glucose Level - 92 mg/dL GLUCOSE POC (05/15/2024) ???Glucose, POC - 95 mg/dL High??Sensitivity??Troponin T (05/15/2024) ???High Sensitivity Troponin (HSTnT) - 25 ng/L INR (05/17/2024) ???INR - 1.0???Protime (PT) - 10.5 seconds Lactate Level (05/15/2024) ???Lactate - 1.1 mmol/L Lipase (05/15/2024) ???Lipase - 17 units/L Magnesium Level (05/17/2024) ???Magnesium - 1.9 mg/dL Opiate Screen Urine (05/15/2024) ???Opiate Screen, Urine - NONE DETECTED Phosphorus Level (05/17/2024) ???Phosphorus - 4.7 mg/dL Total Bilirubin (05/15/2024) ? ?Bilirubin, Total - <0.2 mg/dL Type and Screen (05/15/2024) ???Blood Type - O Positive???Antibody Screen - Negative Urinalysis w/hold for Urine Culture (05/15/2024) ???Appear/Color, Urine - LIGHT YELLOW???Specific Keo, Urine - 1.017???pH, Urine - 7.0???Albumin, Urine - NEGATIVE???Glucose, Urine - NEGATIVE???Ketones, Urine - NEGATIVE???Bilirubin, Urine - NEGATIVE???Hemoglobin, Urine - TRACE???Nitrite, Urine - POSITIVE???Leukocyte, Urine - 1+???Urobilinogen - NORMAL???WBC's, Urine - 18 /HPF???RBC's, Urine - 7 /HPF???Bacteria - SLIGHT???Squamous Epith - 2 /HPF???Mucus - SLIGHT???Hold Urine Culture - Testing available 48 hours from time of collection. Urine Culture Result (05/15/2024) ???Urine Culture Isolate 1 - Klebsiella pneumoniae???Urine Cult Antimicrobial Susceptibility - Comment Urine Culture, Routine (05/15/2024) ???Urine Culture Results - Final report???Urine Culture Specimen Source - URINE You will be contacted within 72 hours [...] Educational Leaflet Providered with your Discharge Instructions. [employer] Patient Education - Depression: Tips to Help Yourself?? [employer] Patient Education - Depression?? Valuables and Belongings I fully understand and agree that [facility] accepts no responsibility for all my [...] Review of Valuable and Belonging List: With patient Date for Pt to Sign Valuables/Belongings: 05/15/24 22:59:00 ?? Other Discharge Information ? Pulmonary Rehab Status?? Pulmonary Rehab Discharge Status?? Respiratory Rate: 20 br/min ? Common Emergency Awareness Tips IS [...] are strongly encouraged to quit. Please call [facility] [employer] Link at [phone] or [phone] ([phone]) or log in to [email or web address] for referrals to smoking cessation programs. ?? 705 Suicide & Crisis Lifeline is available 06/03 if you or someone you know needs to find a reason to keep living. By calling 872 you'll be connected to a skilled, trained counselor at a crisis center in your area. INPATIENT DISCHARGE INSTRUCTIONS SIGNATURE PAGE KIM VEGA Location:[facility] Registration Date and Time:05/15/2024 22:17 EDT Primary Care Physician: Mark MENDOZA , Jennifer Darnell, Attending Physician: Vin MENDOZA, Doyle Marrero, I SILVIADANIALN, have received the above patient education materials/instructions and have verbalized understanding. If ambulance or transport services are being used I further acknowledge being given a choice of service. ?? If you need to contact me, please call me at this number: . Patient/Ware Tester Name: Patient/Ware Tester Signature: Relationship to Patient: Witness Name/Signature: Date: * Event Display: Provider Clarification Note Please click on pdf link to open report * Anne Arce RN: PERFORM Event Display: Patient Education Leaflets Authored Date: [id number] Depression: Tips to Help Yourself ?? 24252 Depression: Tips to Help Yourself As your healthcare providers help treat your depression, you can also help yourself. Keep in mind that your illness affects you emotionally, physically, mentally, and socially. So full recovery will take time. Take care of your body and your soul. And be patient with yourself as you get better. Self-care ??? Educate yourself. Read about treatment and medicine options. If you have the energy, go to local conferences or support groups. Keep a list of useful websites and helpful books and use them as needed. This illness is not your fault. Don???t blame yourself for your depression. ??? Manage early symptoms. If you notice symptoms returning, have triggers, or find other things that may lead to a depressive episode, get help as soon as possible. Ask trusted friends and family to watch your behavior. They can let you know if they see anything of concern. ??? Work with your provider. Find a provider you can trust. Talk honestly with that person. Share information on your treatment for d epression and your reaction to medicines. You may need to try different medicines before finding the right one. ??? Be prepared for a crisis. Know what to do if you have a crisis. Keep the phone number of a crisis hotline handy, or save it in your cellphone. Know where your community's urgent care centers and the closest emergency department are. ??? Hold off on big decisions. Depression can cloud your judgment. So wait until you feel better before making major life decisions. These include changing jobs, moving, making a big purchase, or getting or . ??? Be patient. Recovering from depression is a process. Don???t be discouraged if it takes some time to feel better. ??? Keep it simple. Depression saps your energy and focus. So you won???t be able to do all the things you used to do. Set small goals and do what you can. ??? Be with others. Don???t isolate yourself???you???ll only feel worse. Try to be with other people. And take part in fun activities when you can. Go to a movie, [employer], jewish service, or social event. Talk openly with people you can trust. Andaccept help when it???s offered. ?? Take care of your body People with depression often lose the desire to take care of themselves. That only makes their problems worse. During treatment and after, make a point to: ??? Exercise. It???s a great way to take care of your body. And studies have shown that exercise helps fight depression. Aim for 30 minutes of moderate activity a day. Walking in small blocks of time (5 to10 minutes) is a good way to start. But anything that gets you moving (gardening, house cleaning) counts. ??? Not use drugs or alcohol. These may ease the pain in the short term. But they???ll only make your problems worse in the long run. ??? Get relief from stress. Ask your healthcare provider for relaxation exercises and methods to he lp ease stress. Consider things like meditation, yoga, progressive muscle relaxation, or maryam chi. ??? Eat right. A balanced and healthy diet helps keep your body healthy. ??? Get enough sleep. Aim for 8 hours per night. Too much or too little sleep can cause other physical and emotional problems. ?? Last Reviewed Date: 2023 ?? [employer]. All rights reserved. This information is not intended as a substitute for professional medical care. Always follow your healthcare professional's instructions. ?? * Anne Arce RN: PERFORM Event Display: Patient Education Leaflets Authored Date: [id number] Depression ?? [id number] Depression Depression is a very common mental health problem. It's not just a state of being unhappy or sad. It's a true disease. The cause seems to be linked to a change in chemicals that send signals in the brain. These things increase a person???s risk of depression: ??? A family history of depression, alcoholism, or suicide ??? Chronic illness ??? Chronic pain ???Migraine headaches ??? High emotional stress Depression may be easier to see in others. You may have a hard time seeing it in yourself. It can show in many physical and emotional ways. These include: ??? Loss of appetite ??? Overeating ??? Not being able to sleep ??? Sleeping too much ??? A lot of tiredness not linked to physical activity ??? Restlessness or irritability ??? Slowness of movement or speech ??? Feeling sad or withdrawn ??? Loss of interest in things you once enjoyed ??? Trouble??concentrating, remembering,??or making decisions ??? Thoughts of harming or killing yourself, or thoughts that life is not worth living ??? Low self-esteem The treatment for depression may include both medicine and psychotherapy. Antidepressants can ease symptoms. They can also make it easier for you to do daily tasks. Therapy can offer emotional support. It can also help you understand things that may be causing the depression. Home care ??? Ongoing care and support help people manage this disease. Find a healthcare provider and therapist who meet your needs. Get help when you feel like you may be getting ill. ??? Be kind to yourself. Make it a point to do things that you enjoy. This may be gardening, walking in nature, or going to a movie. Reward yourself for small successes. ??? Take care of your body. Eat a balanced diet. Eat foods low in saturated fat. Eat a lot of fruits and vegetables. Exercise at least 3 times a week for 30 minutes. Even mild to moderate exercise like brisk walking can make you feel better. ??? Take medicine as prescribed. Don't stop your medicine or change the dose unless you talk with your healthcare provider. ??? Once you start medicine, expect your symptoms to get better slowly. Depression will lift over time. It doesn't get better right away. Ask your healthcare provider how long it will take for a medicine to start working. ??? Don't share your medicine. Don???t use someone else's medicine. ??? Tell your healthcare providers all the medicines you take. This includes prescription and pnni-kmg-ctturfd medicines. It includes vitamins and herbal supplements. Some supplements caninteract with medicines. They can cause dangerous side effects. Ask your pharmacist about medicine interactions when you have questions. ??? Don't make major decisions until you feel better. This incl udes things such as a job change, a divorce, or a marriage. ??? Don't drink alcohol. It can make depression worse. ??? Talk with your family and??trusted friends??about your feelings and thoughts.??Ask them to help you notice behavior changes early. You can then get help and, if needed, your medicine can be changed. ??? Talk with your healthcare provider if you are not getting better. They may change your medicine or have you try another treatment. ?? Follow-up care Follow up with your healthcare provider as advised. ?? Crisis care Call 988 if you have thoughts of harming yourself or others. When you call or text 988, you will beconnected to trained crisis counselors. An online chat option is also available. [employer] is free and available 06/03. 988 counselors will work with 911 to help you get the care you need. Call 911 if you: ??? Have trouble breathing ??? Are??very confused ??? Feel very drowsy or have??trouble awakening ??? Faint ??? Have new chest pain that becomes more severe, lasts longer, or spreadsinto your shoulder, arm, neck, jaw, or back ?? When to get medical care Call your healthcare provider right away if any of these happen: ??? Your symptoms get worse ??? You have extreme depression, fear, anxiety, or anger toward yourself or others ??? You feel out of control ??? You feel that you may try to harm yourself or another ??? You hear voices other people don't hear ??? You see things other people don't see ??? You don't sleep or eat for 3 days in a row ??? Friends or family express concern over your behavior and ask you to get help ?? Last Reviewed Date: 2021 ?? 4013-8655 [employer]. All rights reserved. This information is not intended as a substitute for professional medical care. Always follow your healthcare professional's instructions. ?? Consult note * Halima Torres: PERFORM Event Display: Consultation Note Authored Date: [id number] Patient: ??KIM VEGA ? Age:??64 Years?Sex:??Female?:??1960?? Chief Complaint/Reason for Consult rolled OOB three hours ago. Hit head and back on wall. no LOC. supposed to be on eloquis but has not been taking it. c/o neck JUAREZ and back pain. redness to back. Was able to stand and poivot. Hx of right sided deficit from old stroke History of Present Illness This is a 64-year-old female??with a past medical history including??stroke with??residual right arm weakness??who presented to??[facility] ED for evaluation after??rolling out of bed today. ??Since??the fall out of bed the patient has reported new??low back pain, though denying any new pain radiating into her lower extremities, or numbness, tingling, new??weakness??in the extremities. ??She has baseline intermittent incontinence of stool due to malignancy, but denies any incontinence or retention of urine and denies saddle anesthesias. ??CT revealed an L3 compression fracture??prompting request for neurosurgical consultation. Additionally, the patient was found to have UTI for which she will be admitted. Review of Systems General: Denies fevers, chills, or generalized malaise HEENT: denies new neck pain Cardiac: Denies new chest pain Pulmonary: Denies new shortness of breath?? GI: Denies changes in bowel function : Denies urinary incontinence or retention?? Neuro: See HPI for details. Physical Exam Vitals & Measurements T:??99.7?F?? HR:??68??(Peripheral)?? RR:??12?? BP:??146/66?? SpO2:??97%?? HT:??163??cm?? WT:??35??kg?? BMI:??13.17? General: Awake alert and NAD. Sitting up in bed periodically, but lays down eventually after being educated on fracture and possibility for acute worsening if sitting upright without brace on. very frail appearing HEENT:?? trachea midline Respiratory: Normal I&E, no acute respiratory distress.?? Skin: ecchymosis throughout??upper extremities. ?? Neurologic:?? Mental status: Awake, alert & oriented to person, place, and time Speech: clear, fluent and appropriate?? Follows simple and complex commands ?? Motor:?? Normal bulk and tone ?? Upper extremities: ? R ? L?? Deltoid 4-/5?4-/5 Biceps?4-/5?4-/5 Triceps?4-/5?4-/5 Wrist extension?4/5?4/5 Finger trimmer climber?2/5?3/5 *per patient this is her baseline prior to the fall ?? Lower extremities: R?L IP?4/5?4/5 Quads?4/5?4/5 Tibialis anterior?4/5?4/5 EHL?4/5?4/5 Gastroc/ Soleus?4/5?4/5 ?? Sensation??intact to light touch throughout upper extremities and lower extremities? Reflexes: ? No clonus on right, unable to assess on left due to patient reporting extensive hardware placement into foot and ankle with pain and limited mobility. ? Assessment/Plan This is a 64-year-old female??with a past medical history including??stroke with??residual right arm weakness??who presented to??[facility] ED for evaluation after??rolling out of bed today. ??Since??the fall out of bed the patient has reported new??low back pain, though denying any new pain radiating into her lower extremities, or numbness, tingling, new??weakness??in the extremities. ??She has baseline intermittent incontinence of stool due to malignancy, but denies any incontinence or retention of urine and denies saddle anesthesias. ??CT revealed an L3 compression fracture??without extension into pedicles or rest of posterior elements, without retropulsion, and without malalignment at this level. On neurologic exam, not focal motor or sensory deficits noted in lower extremities. Upper extremityweakness reportedly baseline and unchanged per patient. ?? THORACOLUMBAR INJURY CLASSIFICATION AND SEVERITY SCORE ?? Mechanism ? Post. Ligament Integrity Compression 1?Intact ?0 Burst?2?Suspected ?2 Transla/rotat?3? Injured?3 Distraction?4 ?? Neuro Involvement?Totals Intact?0? <= 3 ? non-operative Nerve root?1?>=5 ?operative Incomplete ?3?4 ? +/- operate Complete?2 Cauda Equina ?3 ? Recommendations: No neurosurgical intervention at this time. q4h neuro checks. Soft TLSO brace will be ordered??from O&P lab in the morning. Keep head of bed less than 30 degrees??until patient is fitted for brace. Obtain upright x-rays??once patient is fitted for brace. Will establish outpatient neurosurgical follow-up in 4 to 6 weeks??for reevaluation. The patient was educated on signs and symptoms??that would require prompt evaluation including??sudden worsening of back pain, new radicular pain, paresthesias, numbness, weakness, or new bowel or bladder dysfunction or saddle anesthesias. Medical management including pain control per primary team[place]?? [place] [phone] for any questions or if exam changes. ?? Attending neurosurgeon: Dr. Granda Total Time Spent I personally spent a total of??45 minutes, including both ylrb-sl-hfza and nhv-rbqr-pb-face time onthe date of the encounter, addressing the above diagnoses. Activities performed in this time include chart review, obtaining / reviewing history, performing amedically necessary evaluation, documentation and Review of tests performed by other providers including medical decision making of Moderate Complexity (45-59 minutes for NEW patient) Problem List/Past Medical History Ongoing Acid reflux [...] adenoma of colon, s/p polypectomy Underweight Underweight Weakness of right arm Procedure/Surgical History Right ax-fem Bypass: 06/03/20 Reduction and internal fixation, left calcaneus avulsion fracture: 10/28/16 Open reduction, internal fixation of bimalleolar fracture, left ankle, using a VariAx plate on the distal fibula from the [employer] and 2 cannulated titanium screws to fix the left medial malleolus: 12/07/11 Colonoscopy w/polypectomy: 2006 PFT - Pulmonary function tests: 11/26/03 Gastrostomy tube insertion education Accessing port a cath Appendectomy Tonsillectomy and adenoidectomy Home Medications Acetaminophen: 1,300 mg = 2 tablet, By Mouth, Every 8 hours, PRN (as needed for pain) Albuterol: 2 puffs, Inhalation, 4 times a day, PRN (as needed for wheezing) Albuterol: 2.5 mg = 3 mL, Inhalation, Every 6 hours, PRN (for wheezing) Budesonide-Formoterol: 2 puffs, Inhalation, 2 times a day Dexamethasone: See Instructions, 1 tab (4mg) By Mouth once a day for 3 days as directed after chemo, with food Durable Medical Equipment: See Instructions, 1 each Durable Medical Equipment: See Instructions, 1 walker pt 5ft1in 74# rx for difficulty ambulating due to history of CVA, deconditioning Lactulose: 10 Gm = 15 mL, By Mouth, Daily, PRN (as needed for constipation) Lidocaine/Prilocaine Topical: See Instructions, apply small dollop to portacat site 1 hr prior to appt and cover with plastic Nicotine: 1 patch, Topically, Daily Olanzapine: 1 tablet, By Mouth, Daily at bedtime, DIRECTED. Ondansetron: 8 mg = 1 tablet, By Mouth, Every 8 hours, PRN (as needed for nausea/vomiting) Oxycodone: 5 mg = 5 mL, By Mouth, Every 8 hours PROCHLORperazine: 10 mg = 1 tablet, By Mouth, Every 6 hours, PRN (nausea/vomiting), may cause drowsiness Senna: 17.6 mg = 10 mL, By Mouth, Daily at bedtime, PRN (for constipation) Voriconazole: 200 mg, By Mouth, Every 12 hours Warfarin: 3 mg = 1 tablet, By Mouth, Daily at supper Allergies Darvon??(difficulty breathing) doxycycline??(vomiting) hydrochlorothiazide??(unknown) Social History Alcohol Use: Current. Frequency: Daily. Type: Beer. Other: 1-7 beers daily. Tobacco Use: 10 or more cigarettes (1/2 pack or more)/day in last 30 days. Interested in cessation: No. No Family History No family history recorded. Radiology CT (05/15/2024) RADIOLOGY READ/ IMPRESSION THORACIC AND LUMBAR SPINE 1. No thoracic spine injury.. 2. Mild L3 compression fracture which is new since 04/20/2019 otherwise of uncertain age. ?? 3. Normal alignment thoracic spine and lumbar spine. ?? * Ethan Pozo: PERFORM Event Display: Consultation Note Authored Date: Uprights in brace completed. No significant malalignment noted in brace. Rad impression provided. Brace to be worn anytime HOB >30 degrees. Okay for activity as tolerated in brace. Will arrange outpt f/u. Please refer back as necessary. ?? IMPRESSION:? Mild superior endplate vertebral compression fracture at L3 and loss of disc space height at the L2-3 level Patient Care team information Care Team Personnel Name: Radha Cr RN Position: [facility] RN Member Role: Primary Care Nurse Name: Caitlyn Orellana RN Position: S RN Member Role: Primary Care Nurse Name: Jazlyn Marquez RN Position: [facility] RN Supv Member Role: Primary Care Nurse Name: Katelin Mcfadden RN Position: S RN Member Role: Primary Care Nurse Name: Jude Mejia Position: S RN Supv Member Role: Primary Care Nurse Name: Jennifer Flores MD Position: Reference Physician Member Role: PCP Address: Address: [address] [place] [address]- Name: Kemi Carpenter RN Position: S RN Member Role: Primary Care Nurse Name: Zaida Gaspar RN Position: S RN Member Role: Primary Care Nurse Name: Kemi Henry RN Position: [facility] Onco RN Member Role: Primary Care Nurse Name: Robert Arechiga RN Position: [facility] RN Member Role: Primary Care Nurse Name: Sienna Merida RN Position: [facility] Onco RN Member Role: Primary Care Nurse Name: Baltazar Villar RN Position: [facility] RN Member Role: Primary Care Nurse Name: Zoila Segundo RN Position: [facility] AMB Nurse Member Role: Primary Care Nurse Name: Izabel Cruz RN Position: [facility] RN Member Role: Primary Care Nurse Name: Betty Gomez RN Position: [facility] SN RN Member Role: Primary Care Nurse Name: Katy Jay RN Position: [facility] RN Member Role: Primary Care Nurse Name: Sarah Hammonds RN Position: [facility] Onco RN Member Role: Primary Care Nurse Name: Cabrera Peraza RN Position: [facility] RN Member Role: Primary Care Nurse Name: Garfield Chow RN Position: [facility] RN Member Role: Primary Care Nurse Name: Mitzi Blue RN Position: [facility] Onco RN Member Role: Primary Care Nurse Name: Coleman Steiner RN Position: [facility] RN Member Role: Primary Care Nurse Name: Ananda Pruitt RN Position: [facility] RN Member Role: Primary Care Nurse Name: Radha Gunn RN Position: [facility] RN Member Role: Primary Care Nurse Care Team Related Persons Name: CONI DEAL Name: REGI LAZAR Name: HELIO MOORE Address: home [address] [place], [place] Name: CINTHYA LANG Address: home [address] [place], [place] Name: SAIMA PERDUE Address: home [address] [place], [place] Name: SAIMA REYEZ Address: home [address] [place], [place]
--- OUTSIDE RECORDS SUMMARY | 2024-05-25 15:16 | XMS_ITS | Continuity of Care Document ---
Author Organization [facility] Address [address] [place] [id number]- Care Team Providers Care Creative Resource Manager Name Role Phone Mark MENDOZA, Jennifer Darnell Primary Care Physician [place] [facility] [place]/19 [facility] [address] [place] [address]- [facility] Attending Physician: Dillon Guillory MD Admitting Physician: [...]
--- OUTSIDE RECORDS SUMMARY | 2024-05-25 15:16 | XMS_ITS | Continuity of Care Document ---
Author Organization [facility] Address [address] [place] [id number]- Care Team Providers Care Director Social Service Name Role Phone Mark MENDOZA, Jennifer Darnell Primary Care Physician Encounter [facility] [place] Date(s): 07/09/20 - 11/29/20 [facility] [address] [place], [place] [address] Attending Physician: Uli GARCÍA, Saba [...] 07/07/20 13:21:00 EST, Route to Pharmacy Electronically, [id number], 155, cm, 07/07/20 13:19:00 EST, Height, 39.6, [...]
--- OUTSIDE RECORDS SUMMARY | 2024-05-25 15:16 | XMS_ITS | Continuity of Care Document ---
Author Organization [facility] Address [address] [place] [id number]- Care Team Providers Care Assessment Analyst Name Role Phone Mark MENDOZA, Jennifer Darnell Primary Care Physician [place] [facility] [place] 04/15/20 [facility] [address] [place] [address]- [facility] Allergies, Adverse Reactions, Alerts Substance Reaction Severity [...]
--- OUTSIDE RECORDS SUMMARY | 2024-05-25 15:16 | XMS_ITS | Continuity of Care Document ---
Author Organization [facility] Address [address] [place] [address]- Care Team Providers Care Numberer And Wirer Name Role Phone Mark MENDOZA, Jennifer Darnell Primary Care Physician Encounter 02/26/24 - 04/24/24 [facility] [address] [place] [address]- Discharge Disposition: PER CLIENT REQUEST Allergies, Adverse Reactions, Alerts Substance Reaction Severity [...] cream See Instructions, apply small dollop to [facility] site 1 hr prior to appt and cover with plastic, #30 Gm, 1 Refills, Maintenance, 01/29/24 14:24:00 EDT, Cream, [facility]/pharmacy #[id number], Partial fill upon patient request if the prescription is for a schedul... Start Date: 01/29/24 Status: Ordered Nicoderm C-Q Clear 21 mg/24 hr transdermal film, extended release 1 patch, Topically, Daily, # 30 patch, 0 Refills, Maintenance, 02/25/24 9:47:00 EDT, Patch, [facility], Partial fill upon patient request if the prescription is for a schedule II opioiddrug., 150, cm, 02/25/24 8:49:00 EDT, Height, 32.5,... Start Date: 02/25/24 Status: Ordered olanzapine 2.5 mg oral tablet 1, tablet, By Mouth, Daily at bedtime, DIRECTED., # 18 tablet, Refills 0, Maintenance, 02/19/24 8:02:00 EDT, Route to Pharmacy Electronically, [id number], 150.8, cm, 02/13/24 15:23:00 EDT, Height, 33.6, kg, 02/13/24 15:23:00 EDT, Dry Weight Start Date: 02/19/24 Status: Ordered ondansetron 8 mg oral tablet 1 tablet = 8 mg, By Mouth, Every 8 hours, PRN as needed for nausea/vomiting, # 30 tablet, 1 Refills, Maintenance, 01/29/24 14:24:00 EDT, Tablet, [facility]/pharmacy #[id number], Partial fill upon patient request if the prescription is for a schedule II opioid drug... Start Date: 01/29/24 Status: Ordered oxyCODONE 5 mg/5 mL oral solution 5 mL = 5 mg, By Mouth, Every 8 hours, # 105 mL, 0 Refills, Maintenance, 02/20/24 21:30:00 EDT, Solution, [facility], Partial fill upon patient request [...] tablet, 1 Refills, Maintenance, 01/29/24 14:24:00 EDT, [facility]/pharmacy #[id number], Partial fill upon patient requestif the prescription is for a schedule II opioid sheldon... Start Date: 01/29/24 Status: Ordered senna 8.8 mg/5 mL oral syrup 10 mL = 17.6 mg, By Mouth, Daily at bedtime, PRN for constipation, # 240 mL, 0 Refills, Maintenance, 02/13/24 15:55:00 EDT, Syrup, [facility]/pharmacy #[id number], Partial fill upon patient request if [...] 06/24/24 9:41:00 EST, 02/25/24 9:41:00 EDT, Tablet, [facility], Partial fill upon patient request [...] 0 Refills, Maintenance, 03/15/24 11:40:00 EDT, Tablet, [facility]/pharmacy #[id number], Partial fill upon patient request if [...] Team Personnel Name: Caitlyn Orellana RN Position: [facility] RN Member Role: Primary Care Nurse Name: Jazlyn Marquez RN Position: [facility] RN Supv Member Role: Primary Care Nurse Name: Katelin Mcfadden RN Position: [facility] AMB Nurse Member Role: Primary Care Nurse Name: Jude Mejia Position: [facility] RN Supv Member Role: Primary Care Nurse Name: Jennifer Flores MD Position: Reference Physician Member Role: PCP Address: Address: [address] [place], [place] - Name: Kemi Carpenter RN Position: [facility] RN Member Role: Primary Care Nurse Name: Zaida Gaspar RN Position: S RN Member Role: Primary Care Nurse Name: Kemi Henry RN Position: [facility] Onco RN Member Role: Primary Care Nurse Name: Robert Arechiga RN Position: [facility] RN Member Role: Primary Care Nurse Name: Sienna Merida RN Position: [facility] Onco RN Member Role: Primary Care Nurse Name: Baltazar Villar RN Position: [facility] RN Member Role: Primary Care Nurse Name: Zoila Segundo RN Position: [facility] AMB Nurse Member Role: Primary Care Nurse Name: Izabel Cruz RN Position: [facility] RN Member Role: Primary Care Nurse Name: Betty Gomez RN Position: [facility] SN RN Member Role: Primary Care Nurse Name: Katy Jay RN Position: [facility] RN Member Role: Primary Care Nurse Name: Sarah Hammonds RN Position: [facility] Onco RN Member Role: Primary Care Nurse Name: Cabrera Peraza RN Position: [facility] RN Member Role: Primary Care Nurse Name: Garfield Chow RN Position: [facility] RN Member Role: Primary Care Nurse Name: Mitzi Blue RN Position: [facility] Onco RN Member Role: Primary Care Nurse Name: Ananda Pruitt RN Position: [facility] RN Member Role: Primary Care Nurse Name: Radha Gunn RN Position: [facility] RN Member Role: Primary Care Nurse Care Team Related Persons Name: CONI DEAL Name: REGI LAZAR Name: HELIO MOORE Address: home [address], [place] Name: CINTHYA LANG Address: home [address] [place], [place] Name: SAIMA PERDUE Address: home [address] [place], [place] Name: SAIMA REYEZ Address: home [address] [place], [place]
--- OUTSIDE RECORDS SUMMARY | 2024-05-25 15:16 | XMS_ITS | Continuity of Care Document ---
Author Organization [facility] Address [address] [place] [address]- Care Team Providers Care Decoration Checker Name Role Phone Mark MENDOZA, Jennifer Darnell Primary Care Physician [place] [facility] [place] 12/21/23 - 01/28/24 [facility] [address] [place], [place] [address] Attending Physician: Danya MENDOZA, Kye Admitting Physician: [...] 11/14/22 7:49:00 EDT, Route to Pharmacy Electronically, [facility] [id number], 154.94, cm, 02/18/22 8:56:00 EDT, Height, 43.1, kg, 02/18/22 8:56:00 EDT, Dry Weight Start Date: 11/14/22 Status: Ordered Ferrous Sulfate EC Refills 0, Maintenance, 02/03/22 10:55:00 EDT, Partial fill upon patient request if the prescription is for a schedule II opioid drug. Start Date: 02/03/22 Status: Ordered nystatin [id number] u/ml oral suspension 5 mL = 500,000 units, By Mouth, 4 times a day, for 10 days, swish and swallow, # 200 mL, 1 Refills,Acute 02/01/24 10:37:00 EDT, 01/12/24 10:37:00 EDT, Suspension, [facility], Partial fill upon patient [...] 07/07/20 13:21:00 EST, Route to Pharmacy Electronically, [facility] #[id number], 155, cm, 07/07/20 13:19:00 EST, Height, 39.6, [...] 1 Refills, Maintenance, 01/19/24 11:08:00 EDT, Liquid, [facility]/pharmacy #[id number], Partial fill upon patient request [...] Team Personnel Name: Katelin Mcfadden RN Position: [facility] RN Member Role: Primary Care Nurse Name: Mark MENDOZA , Jennifer Darnell Position: Reference Physician Member Role: PCP Address: Address: [address] [place], [place] [address] Name: Robert Arechiga RN Position: [facility] RN Member Role: Primary Care Nurse Name: Zoila Segundo RN Position: [facility] Nurse Member Role: Primary Care Nurse Name: Betty Gomez RN Position: [facility] SN RN Member Role: Primary Care Nurse Name: Cabrera Peraza RN Position: S RN Member Role: Primary Care Nurse Care Team Related Persons Name: CONI DEAL Name: REGI LAZAR Name: HELIO MOORE Address: home [address] [place], [place] Name: CINTHYA LANG Address: home [address] [place] [address] Name: SAIMA PERDUE Address: home [address] [place] [address] [address] [place], [place] Name: SAIMA REYEZ Address: home [address] [facility] [address] [facility] [place] [address]
--- OUTSIDE RECORDS SUMMARY | 2024-05-25 15:16 | XMS_ITS | Continuity of Care Document ---
Author Organization [facility] Address [address] [place] [address]- Care Team Providers Care Patch Press Operator Name Role Phone Mark MENDOZA, Jennifer Darnell Primary Care Physician Encounter [facility] Date(s): 09/06/19 - 11/08/19 [facility] [address] [place] [address]- [facility] Attending Physician: Dillon Guillory MD Admitting Physician: [...]
--- OUTSIDE RECORDS SUMMARY | 2024-05-25 15:16 | XMS_ITS | Continuity of Care Document ---
Author Organization [facility] Address [address] [place] [address]- Care Team Providers Care Live Games Dealer Name Role Phone Mark MENDOZA, Jennifer Darnell Primary Care Physician Encounter [facility] Date(s): 01/28/20 - 02/04/20 [facility] [address] [place] [address]- [facility] Attending Physician: Kasandra Meza NP Admitting Physician: Kasandra Meza NP Referring Physician: Jennifer Flores MD Allergies, Adverse [...]
--- OUTSIDE RECORDS SUMMARY | 2024-05-25 15:16 | XMS_ITS | Continuity of Care Document ---
Author Organization [facility] Address [address] [place] [address]- Care Team Providers Care Regulatory Services Consultant Name Role Phone Mark MENDOZA, Jennifer Darnell Primary Care Physician Encounter [facility] Date(s): 10/29/20 - 12/20/20 [facility] [address] [place] [address] Attending Physician: Uli GARCÍA, Saba Tripp Admitting Physician: Uli GARCÍA, Saba Tripp Referring Physician: Uli GARCÍA, Saba Tripp Allergies, Adverse Reactions, Alerts Substance Reaction Severity Status aspirin 1, 2 Active doxycycline vomiting Active hydrochlorothiazide unknown Active Tylenol Nauseated Active [...] 07/07/20 13:21:00 EST, Route to Pharmacy Electronically, [facility] #[id number], 155, cm, 07/07/20 13:19:00 EST, Height, 39.6, kg, 06/03/20 17:24:00 EDT, Dry... Start Date: 07/07/20 Stop Date: 01/03/21 Status: Ordered Plavix 75 mg oral tablet 75 mg, 1, tablet, By Mouth, Daily, # 30 tablet, Refills 5, Tot. Refills 5, Maintenance, 12/16/20 14:13:00 EDT, Route to Pharmacy Electronically, [facility] #[id number], 155, cm, 07/07/20 13:19:00 EST, Height, 39.6, [...]
--- OUTSIDE RECORDS SUMMARY | 2024-05-25 15:16 | XMS_ITS | Continuity of Care Document ---
Author Organization [facility] Address [address] [place] [address]- Care Team Providers Care Construction Quality Control Manager Name Role Phone Mark MENDOZA, Jennifer Darnell Primary Care Physician Encounter [facility] Date(s): 02/08/21 - 03/10/21 [facility] [address] [place], [place] [address] Allergies, Adverse Reactions, Alerts Substance Reaction [...] tablet, Refills 5, Tot. Refills 5, Maintenance, 02/08/21 16:38:00 EDT, Route to Pharmacy Electronically, [facility]/pharmacy #[id number], 155, cm, 07/07/20 13:19:00 EST, Height, 39.6, kg, 06/03/20 17:24:00 EDT, Dry Weight Start Date: 02/08/21 Stop Date: 08/07/21 Status: Ordered Plavix 75 mg oral tablet 75 mg, 1, tablet, By Mouth, Daily, # 30 tablet, Refills 5, Tot. Refills 5, Maintenance, 07/07/20 13:21:00 EST, Route to Pharmacy Electronically, [facility] #[id number], 155, cm, 07/07/20 13:19:00 EST, Height, 39.6, kg, 06/03/20 17:24:00 EDT, Dry... Start Date: 07/07/20 Stop Date: 01/03/21 Status: Ordered Plavix 75 mg oral tablet 75 mg, 1, tablet, By Mouth, Daily, for 30 days, # 30 tablet, Refills 5, Tot. Refills 5, Hard Stop 06/14/21 14:13:00 EDT, 12/16/20 14:13:00 EDT, Route to Pharmacy Electronically, [facility] ST[facility] #[id number], 155, cm, 07/07/20 13:19:00 EST, Height, 39.6... Start Date: 12/16/20 Stop Date: 06/14/21 Status: [...]
--- OUTSIDE RECORDS SUMMARY | 2024-05-25 15:16 | XMS_ITS | Continuity of Care Document ---
Author Organization [facility] Address [address] [place] [address]- Care Team Providers Care Depot Manager Name Role Phone Mark MENDOZA, Jennifer Darnell [id number]): [facility] - 01/22/[facility] [address] [place], [place] [address] Attending Physician: Herlinda Norman MD Admitting Physician: Herlinda Norman MD Referring Physician: Salomón MENDOZA, Millicent Allergies, Adverse [...] 11/14/22 7:49:00 EDT, Route to Pharmacy Electronically, [id number], 154.94, cm, 02/18/22 8:56:00 EDT, Height, 43.1, kg, 02/18/22 8:56:00 EDT, Dry Weight Start Date: 11/14/22 Status: Ordered Ferrous Sulfate EC Refills 0, Maintenance, 02/03/22 10:55:00 EDT, Partial fill upon patient request if the prescription is for a schedule II opioid drug. Start Date: 02/03/22 Status: Ordered nystatin 583632 u/ml oral suspension 5 mL = 500,000 units, By Mouth, 4 times a day, for 10 days, swish and swallow, # 200 mL, 1 Refills,Acute 02/01/24 10:37:00 EDT, 01/12/24 10:37:00 EDT, Suspension, [facility], Partial fill upon [...] 07/07/20 13:21:00 EST, Route to Pharmacy Electronically, [id number], 155, cm, 07/07/20 13:19:00 EST, Height, 39.6, [...] 1 Refills, Maintenance, 01/19/24 11:08:00 EDT, Liquid, [facility]acy #[id number], Partial fill upon patient request [...] recent to oldest [Reference Range]: 1 Height 155 cm (01/15/24 2:32 PM) Weight 31.8 kg (01/15/24 2:32 PM) Oxygen Saturation [94-100 %] 97 % (01/15/24 2:32 PM) Pulse Rate [55-90 bpm] 93 bpm *H* (01/15/24 2:32 PM) Body Mass Index [18.5-24.99 kg/m2] 13.24 kg/m2 *L* (01/15/24 2:32 PM) Blood Pressure [90-138/55-84 mm Hg] 110/ 58mm Hg (01/15/24 2:32 PM) Blood pressure sites Arm, left (01/15/24 2:32 PM) Weight Obtained Via Patient/family state d (01/15/24 2:32 PM) Social History Social History Type Response Smoking Status 10 or more cigarette s (1/2 pack or more)/day in last 30 days; Type: Cigarettes entered on: 01/15/24 Sex Radiology * Ester MENDOZA, Herlinda: PERFORM Event Display: IR Office Initial Note Authored Date: [id number] Patient: ??KIM VEGA ? Age:??63 Years?Sex:??Female?:??1960?? 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 More of Radiation Oncology and [facility].?? She arrived for today's appointment with her nephew. ?? The patient states she was in her otherwise usual state of health in June 2023,??which included??ambulation with the assistance of a walker in the setting of known peripheral vascular disease and claudication, when she began to have odynophagia.?? As part of the workup related to her pain with swallowing, she underwent a CT neck??and biopsy??in the [facility] in October 2023, which demonstrated an epiglottic mass??concerning for primary malignancy,??a left??neck level 2 lymph node??concerning for erin metastasis??and additionally a right upper lung spiculated??nodule.?? A PET/CT from 11/26/2023 confirmed these findings.?? A biopsy of the left neck lymph node??in October 2023 at an outside institution??confirmed squamous cell carcinoma.?? She has seen Dr. More of radiation oncology and Dr. Lorenzana??of hematology oncology in regards to??her??diagnosis. ??The plan is??for chemoradiation, and therefore a referral to interventional radiology for chest port placement and gastrostomy catheter placement was made.?? The patient also underwent??a??lung biopsy for the right lung nodule??on 01/01/2024, this demonstrated??no malignancy??in the lung,??changes consistent with Aspergillus.?? The patient has not taken her 75 mg of daily Plavix for the past 1 month due to difficulty with swallowing pills, in addition to stopping??several other of her medications. ??She??presently cont inues to take her tramadol as needed, nystatin??for thrush??and her inhalers.?? She continues to smoke,??between half to three quarters of a pack of cigarettes per day??(previously was smoking between 3 to 4 packs of cigarettes per day).?? She has had no alcohol since her sister's [facility] service on December 20, 2023.?? She is cachectic, and was in a wheelchair during today's??clinic visit as comparedto her prior baseline of using a walker for ambulation.?? She develops dyspnea with ambulation from1 end of her trailer to the other. ??She is unable to walk up stairs, and has a ramp installed in her home.?? She has lost 35 pounds of weight since June??2022.?? No fevers or chills. ??No chest pain??or dyspnea at rest. ??No nausea or vomiting. Review of Systems As per the HPI above, otherwise negative. Physical Exam Vitals & Measurements HR:??93??(Peripheral)?? BP:??110/58?? SpO2:??97%?? WT:??31.8??kg?? Constitutional: Cachectic, otherwise alert, in no distress. Mental Status: Oriented to person, place and time. Respiratory: Breath sounds faint, otherwise clear to auscultation bilaterally. Cardiovascular: Regular rate and rhythm. No auscultated murmurs, rubs or gallops. 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 The procedure is scheduled for tomorrow morning??with ane sthesia. ??The patient reports that she was contacted by the anesthesia office last week and was told that she would be?? put to sleep for the procedure. ??I discussed with the patient??that the anesthesia plan??is determined by the anesthesiologist on the day of the procedure, and given the location of her mass,??I am somewhat skeptical if she would be a candidate for general endotracheal anesthesia. ??That being said, I also clarified that this is not my area of clinical expertise, and therefore we would defer to the anesthesiologist during tomorrow's procedure??to determine what the best plan for sedation would be??if offered.?? I??extended my apologies??the patient??as it would likely be one of my partners performing tomorrow's procedure rather than myself as I am already scheduled to be performing a different procedure at the time of her scheduled procedure tomorrow. ??She was scheduled to meet with me in clinic this afternoon??as she was unable to??make her to prior clinic visits and it was imperative to provide her with barium??prior to tomorrow's planned intervention. ??I assured her that??the physicians of??our interventional radiology group??would provide her with the safest and best level of available care.?? The patient and her nephew expressed understanding, both at the??variable nature of the anesthesia plan??and that??there would likely be a different physician performing her procedure tomorrow??morning. ?? I discussed the basics of chest port placement, which involved??obtaining central venous access via the jugular vein, forming a port pocket in the chest, tunneling of the port catheter and then??completion of the procedure with insertion of the catheter via the venous access??and closing the port pocket.?? I discussed the risks??of the procedure which include??bleeding, infection, damage to the surrounding structures??as well as the risk??associated with the??sedation/anesthesia.?? Provided the patient with the barium??powder and the associated instructions for mixing and??ingestion later this evening. ??The patient is able to tolerate??semisolid/liquid foods and??has also been tolerating Ensure, so??she is confident in her ability to drink the barium??prior to the procedure.?? I discussed the basics of gastrostomy catheter placement, which include insufflation of the stomach via??nasogastric or orogastric catheter, placement of gastropexy sutures??and placement of a balloon-retained gastrostomy catheter.?I discussed the risks of the procedure, which include bleeding and infection,??peritonitis particularly if the gastrostomy catheter were to become dislodged prior??to healing of the access tract,??damage to the stomach and/or surrounding visceral and vascular structures??including??small and??large bowel,??and the associated risks with sedation/anesthesia.?The alternative to??chest port and gastrostomy catheter placement??would be to not undergo any procedure.?? The patient expresses desire to proceed with??chest port and gastrostomy catheter placement.?She isstill currently pending??an appointment with ENT??(only appointment offered was for 01/16/2024, and therefore a rescheduled date??was requested by the patient??and is pending at this time).?? I will defer the procedural plan??to the interventionalist and the anesthesiologist on the day of the procedure. ??If the patient is able to receive general anesthesia, both procedures would be feasible. ??If the patient is??not??an anesthesia candidate given the location of the mass and??her poor functionaland nutritional status, it would be reasonable to at least perform chest??port placement with local anesthetic??and??single agent sedation, with decision to attempt gastrostomy catheter dependent on the patient and the??performing proceduralist.?? These possible scenarios were discussed with the patient and her nephew,??who expressed understanding and wish to proceed with chest port and percutaneous gastrostomy catheter placement as scheduled. Total Time Spent I personally spent a total of??48 minutes, including both qbbc-is-cibd and qvz-qakd-hb-face time onthe date of the encounter, addressing the above diagnoses. Activities performed in this time include chart review, obtaining / reviewing history, performing amedically necessary evaluation, documentation and Counseling including medical decision making of Moderate Complexity [...] plate on the distal fibula from the [facility] and 2 cannulated titanium screws to fix the left medial malleolus (12/07/2011)???Colonoscopy w/polypectomy (2006)???PFT - Pulmonary function tests (11/26/2003)???Appendectomy???Tonsillectomy and adenoidectomy Medications Inpatient No active inpatient medications Home albuterol 0.083% inhalation solution, 2.5 mg= 3 mL, Inhalation, Every 6 hours, PRN Cane, See Instructions clopidogrel 75 mg oral tablet, 1 tablet, By Mouth, Daily Ferrous Sulfate EC nystatin 283668 u/ml oral suspension, 205424 units= 5 mL, By Mouth, 4 times a day, 1 refills pantoprazole 40 mg oral delayed release tablet Plavix 75 mg oral tablet, 75 mg= 1 tablet, By Mouth, Daily, 5 refills pramipexole 0.125 mg oral tablet ProAir HFA 90 mcg/inh inhalation aerosol with adapter, 2 puffs, Inhalation, 4 times a day, PRN, 11 refills rOPINIRole 0.5 mg oral tablet, 1 mg= 2 tablet, By Mouth, Daily at bedtime Symbicort 80mcg/4.5mcg Inhaler, 2 puffs, Inhalation, 2 times a day traMADol 5 mg/mL oral liquid, 50 mg= 10 mL, By Mouth, Every 6 hours, PRN Tylenol 8 HR Arthritis Pain 650 mg oral tablet, extended release, 1300 mg= 2 tablet, By Mouth, Every 8 hours, PRN Allergies Darvon??(difficulty breathing) aspirin??(n/v) doxycycline??(vomiting) hydrochlorothiazide??(unknown) Social History Alcohol Use: Current. Frequency: Daily. Type: Beer. Other: 1-7 beers daily. Tobacco Use: 10 or more cigarettes (1/2 pack or more)/day in last 30 days. Type: Cigarettes. Family History Extensive oncologic history in mother and siblings, including sister who she recently lose to lung cancer in early December 2023. Lab Results Test Name Test Result Date/Time WBC 6.9 k/mm3 01/01/2024 07:30 EDT RBC 5.18 m/mm3 01/01/2024 07:30 EDT Hgb 13.2 Gm/dL 01/01/2024 07:30 EDT Hct 43.6 % 01/01/2024 07:30 EDT MCV 84.2 femtoliters 01/01/2024 07:30 EDT MCH 25.5 pg 01/01/2024 07:30 EDT MCHC 30.3 g/dL 01/01/2024 07:30 EDT Platelet Count 244 k/mm3 01/01/2024 07:30 EDT RDW-SD 53.5 femtoliters 01/01/2024 07:30 EDT MPV 8.9 femtoliters 01/01/2024 07:30 EDT Nucleated RBC (Automated) 0.0 #/100 WBC'S 01/01/2024 07:30 EDT Abs. NRBC 0.0 k/mm3 01/01/2024 07:30 EDT INR 1.0 01/01/2024 07:30 EDT Protime (PT) 10.3 seconds 01/01/2024 07:30 EDT Images (11/26/2023 09:[address] PET) IMPRESSION: ?? Large epiglottic tumor extending from the midline and all the way down to the vocal cords. There are associated lymph nodes in level 2 and level 6. ?? A right upper lobe spiculated nodule would have to be considered very suspicious for metastatic disease. The left lower lobe nodule is more consistent with an infectious or inflammatory process. [1] [1]??CT PET; Not on Staff , BRUNA MENDOZA 11/26/2023 09:40 EDT Note * Saba Coelho: PERFORM Event Display: Patient Education/Instruction Authored Date: [id number] Ambulatory Adult Visit Summary [facility] [address] [facility] [address] [place] [address] Name: KIM VEGA : 1960?? Visit: 01/15/2024 14:17?? Ambulatory Visit Instructions ?? Your Care Team Primary Care Provider Mark MENDOZA , Jennifer Darnell? This Visit Provider Herlinda Norman MD Vitals Signs Pulse Rate:??93 bpm??High Height: 155 cm Systolic Blood Pressure: 110 mm Hg Weight: 31.8 kg Diastolic Blood Pressure: 58 mm Hg Body Mass Index:??13.24 kg/m2??Low Oxygen Saturation: 97 % Body surface area: 1.17 What to do next Scheduled Follow-Up Appointments Monday 10:30 AM EDT ?? Where: [facility] [address] [address]- Status: Pending Medications The list below reflects the information in our records and provided by you today along with any changes made during this visit. Please continue your medications until treatment is completed or stopped by your provider. If this is different from the information you have or there are other questions,please contact the prescribing provider. What How Much When Instructions Unchanged Acetaminophen (Tylenol 8 HR Arthritis Pain [...] Inhaler) 2 puff(s) Inhalation Twice a day Unchanged Clopidogrel (clopidogrel 75 mg oral tablet) 1 tab(s) Oral Daily Unchanged Clopidogrel (Plavix 75 mg oral tablet) 1 tab(s) Oral Daily Duration: 30 Days Unchanged Durable Medical Equipment (Cane) See instructions 1 each ?? Unchanged Ferrous Sulfate (Ferrous Sulfate EC) Unchanged Nystatin (nystatin 887596 u/ ml oral suspension) 5 Milliliter Oral 4 times a day Duration: 10 Days swish and swallow ?? Unchanged Pantoprazole (pantoprazole 40 mg oral delayed release tablet) Unchanged Pramipexole (pramipexole 0.125 mg oral tablet) TAKE 1 TABLET BY MOUTH AT BEDTIME ?? Unchanged Ropinirole (rOPINIRole 0.5 mg oral tablet) 2 tab(s) Oral Daily at Bedtime Unchanged Tramadol (traMADol 5 mg/ mL oral liquid) 10 Milliliter Oral Every 6 hours as needed for Pain , Moderate Medications and Immunizations Administered Medications Given During Visit No medications given during this visit.?? Allergies (NKA means No Known Allergies) Darvon??(difficulty breathing) aspirin??(n/v) doxycycline??(vomiting) hydrochlorothiazide??(unknown) Common Emergency Awareness Tips IS IT A [...] are strongly encouraged to quit. Please call [facility] at [phone] or [phone] ([phone]) or log in to [email or web address] for referrals to smoking cessation programs. ?? The National Suicide Prevention Hotline is available 06/03 if you or someone you know needs to find a reason to keep living. By calling 9-975-378-lxog (8700) you'll be connected to a skilled, trained counselor at a crisis center in your area. [facility] You can view and manage your care through the patient portal or by using a health care clarissa of your choosing. [employer] is a website that allows you to securely view your medical information including your hospital discharge summary, office visit summaries, medications and follow-up visits. You can also request appointments, renew medications, and request access to your medical information using a health care clarissa of your choosing, or just ask a question. You can enroll at [email or web address] or register during your next office visit. [facility], in keeping with [facility] guidance, no longer requires face masks [...] medical provider or home test kit. ?? Disclaimer: The information provided is of a [...] different or additional instructions may be required. ?? If you have questions, please consult with your primary care provider or pharmacist, as appropriate. This information is not intended to serve as substitution for assessment and evaluation by a qualified health care provider. If you do not have a primary care provider, you may find a [facility] provider by calling [facility] at [phone]. Patient Care team information Care Team Personnel Name: Katelin Mcfadden RN Position: [facility] RN Member Role: Primary Care Nurse Name: Jennifer Flores MD Position: Reference Physician Member Role: PCP Address: Address: [address] [place], [place] [address] Name: Robert Arechiga RN Position: [facility] RN Member Role: Primary Care Nurse Name: Zoila Segundo RN Position: [facility] ALEXYS Nurse Member Role: Primary Care Nurse Name: Betty Gomez RN Position: [facility] SN RN Member Role: Primary Care Nurse Name: Cabrera Peraza RN Position: S RN Member Role: Primary Care Nurse Care Team Related Persons Name: COIN DEAL Name: REGI LAZAR Name: HELIO MOORE Address: home [address] [place] [address] Name: CINTHYA LANG Address: home [address] [place] [address] Name: SAIMA PERDUE Address: home [address] [place] [address] [address] [place], [place] Name: SAIMA REYEZ Address: home [address] [place] [address]
--- OUTSIDE RECORDS SUMMARY | 2024-05-25 15:16 | XMS_ITS | Continuity of Care Document ---
Author Organization [facility] Address [address] [place] [id number]- Care Team Providers Care Medical Billing Coder Name Role Phone Mark MENDOZA, Jennifer Darnell Primary Care Physician [place] [facility] [place]): [place] 06/05/[address] [address] Discharge Disposition: A-D/C Home Attending Physician: Dillon [...] 11:26:00 EDT Start Date: 03/13/20 Status: Ordered oxyCODONE 5 mg oral tablet 5 mg, 1, tablet, By Mouth, Every 4 hours, PRN, for 3 days, # 18 tablet, Refills 0, Tot. Refills 0, Acute 06/08/20 9:49:00 EDT, Pain , Moderate, 06/05/20 9:49:00 EDT, Route to Pharmacy Electronically,[facility], Partial fill upon patient... Start Date: 06/05/20 Stop Date: 06/08/20 Status: Ordered Plavix 75 mg oral tablet 75 mg, 1, tablet, By Mouth, Daily, # 30 tablet, Refills 0, Tot. Refills 0, Maintenance, 06/05/20 9:49:00 EDT, Route to Pharmacy Electronically, [facility], 155, cm, 06/05/20 8:00:00 EDT, Height, 39.6, kg, 06/03/20 17:24:00 EDT, Dry Weight Start Date: 06/05/20 Status: Ordered ProAir HFA 90 mcg/inh inhalation [...] adenoma of colon, s/ p polypectomy(Confirmed) Active Procedures Procedure Date Related Diagnosis Body Site Status Right ax-fem Bypass 06/03/20 Compl eted Vital Signs Most recent to oldest [Reference Range]: 1 2 3 Height 155 cm (06/05/20 8:00 AM) 155 cm (06/05/20 4:02 AM) 155 cm (06/04/20 11:20 PM) Weight 40 kg (06/03/20 5:17 PM) 39.6 kg (06/03/20 6:30 AM) Oxygen Saturation [94-100 %] 99 % (06/05/20 8:00 AM) 97 % (06/05/20 4:02 AM) 94 % (06/04/20 11:20 PM) Pulse Rate [55-90 bpm] 74 bpm (06/05/20 8:00 AM) 87 bpm (06/05/20 4:02 AM) 79 bpm (06/04/20 11: PM) Body Mass Index [18.5-24.99] 16.65 *L* (06/03/20 5:17 PM) 16.48 *L* (06/03/20 6:30 AM) Blood Pressure [90-138/55-84 mm Hg] 146/75mm Hg *H* (06/05/20 8:00 AM) 150/76mm Hg *H* (06/05/20 4:02 AM) 122/59mm Hg (06/04/20 11:20 PM) Respiratory Rate [16-30 br/min] 18 br/min (06/05/20 8:18 AM) 15 br/min *L* (06/05/20 8:00 AM) 18 br/min (06/05/20 4:02 AM) Temperature [96.8-100.4 DegF] 98.1 DegF (06/05/20 8:00 AM) 97.7 DegF (06/05/20 4:02 AM) 98.9 DegF (06/04/20 11:20 PM) Liters per Minute 3 L/min (06/03/20 1:00 PM) 3 L/min (06/03/20 11:15 AM) 6 L/min (06/03/20 11:07 AM) Mode of Delivery (Oxygen) Room air (06/05/20 8:00 AM) Room air (06/05/20 4:02 AM) Room air (06/04/20 11:20 PM) Blood pressure sites Arm, right (06/05/20 8:00 AM) Arm, right (06/05/20 4:02 AM) Arm, left (06/04/20 11:20 PM) Temperature Route Oral (06/05/20 8:00 AM) Oral (06/05/20 4:02 AM) Oral (06/04/20 11:20 PM) Dry Weight 39.6 kg (06/03/20 5:17 PM) Weight Obtained Via Bed scale (06/03/20 5:17 PM) Social History Social History Type Response Smoking Status Current every day yissel davalos entered on: 01/26/15 Sex
--- OUTSIDE RECORDS SUMMARY | 2024-05-25 15:16 | XMS_ITS | Continuity of Care Document ---
Author Organization [facility] Address [address] [place] [id number]- Care Team Providers Care Basketball Commentator Name Role Phone Mark MENDOZA, Jennifer Darnell Primary Care Physician [place] [facility] [place] 06/[place]/21 [facility] [address] [place], [place] [email or web address]] Attending Physician: Uli GARCÍA, Saba Tripp Admitting [...] 02/08/21 16:38:00 EDT, [id number] 155, cm, 07/07/20 13:19:00 EST, Height, 39.6, kg, 06/03/20 17:24:00 EDT, Dry Weight Start Date: 02/08/21 Stop Date: 08/07/21 Status: Ordered Plavix 75 mg oral tablet 75 mg, 1, tablet, By Mouth, Daily, # 30 tablet, Refills 5, Tot. Refills 5, Maintenance, 07/07/20 13:21:00 EST, Route to Pharmacy Electronically, [facility] #[id number], 155, cm, 07/07/20 13:19:00 EST, Height, 39.6, kg, 06/03/20 17:24:00 EDT, Dry... Start Date: 07/07/20 Stop Date: 01/03/21 Status: Ordered Plavix 75 mg oral tablet 75 mg, 1, tablet, By Mouth, Daily, for 30 days, # 30 tablet, Refills 5, Tot. Refills 5, Hard Stop 06/14/21 14:13:00 EDT, 12/16/20 14:13:00 EDT, Route to Pharmacy Electronically, [facility] #[id number], 155, cm, 07/07/20 13:19:00 EST, Height, 39.6... [...]
--- OUTSIDE RECORDS SUMMARY | 2024-05-25 15:17 | XMS_ITS | Continuity of Care Document ---
Author Organization [facility] Address [address] [place] [id number]- Care Team Providers Care Mattress Renovator Name Role Phone Mark MENDOZA, Jennifer Darnell Primary Care Physician Encounter [facility] [place] Date(s): 06/07/22 - 07/07/22 [facility] [address], [place] [address] [place] Attending Physician: Tatyana Noyola Admitting Physician: Admtr, ArDanyel Referring Physician: Admtr, Ar8 Allergies, Adverse Reactions, [...] tablet, Refills 1, Route to Pharmacy Electronically, [id number], 155, cm, 12/03/21 8:45:00 EDT, Height, 39.6, [...] 07/07/20 13:21:00 EST, Route to Pharmacy Electronically, [id number], 155, cm, 07/07/20 13:19:00 EST, Height, 39.6, [...] List Condition Confirmation Course Effective Dates Status [facility] atus Informant Acid reflux Confirmed Active [...] Response Smoking Status Current every day yissel susannah entered on: 01/26/15 Sex Patient Care team information Care Team Personnel Name: Lesa RN, Katelin Position: S RN Member Role: Primary Care Nurse Name: Mark MENDOZA , Jennifer Darnell Position: Reference Physician Member Role: PCP Address: Address: [address] [place], [place] - Name: Robert Arechiga RN Position: S RN Member Role: Primary Care Nurse Name: Zoila Segundo RN Position: S RN Member Role: Primary Care Nurse Name: Betty Gomez RN Position: [facility] SN RN Member Role: Primary Care Nurse Care Team Related Persons Name: CONI DEAL Name: HELIO MOORE Address: home [address] [place], [place] Name: CINTHYA LANG Address: home [address] [place], [place] Name: MICK ALARCON Address: home [address] [place], [place] Name: SAIMA PERDUE Address: home [address] [place], [place] Name: SAIMA REYEZ Address: home [address] [place], [place]
--- OUTSIDE RECORDS SUMMARY | 2024-05-25 15:17 | XMS_ITS | Continuity of Care Document ---
Author Organization [facility] Address [address] [place] [address]- Care Team Providers Care Clothing Man Name Role Phone Mark MENDOZA, Jennifer Darnell Primary Care Physician [place] [facility] [place]14/24 [facility] [address] [place] [address] Allergies, Adverse Reactions, Alerts Substance [...] See Instructions, apply small dollop to [facility] 1 hr prior to appt and cover with plastic, #30 Gm, 1 Refills, Maintenance, 01/29/24 14:24:00 EDT, Cream, [facility]/pharmacy #[id number], Partial fill upon patient request if the prescription is for a schedul... Start Date: 01/29/24 Status: Ordered Lovenox 60 mg/0.6 mL injectable solution 0.5 mL = 50 mg, Subcutaneous Injection, Daily, for 30 days, # 15 mL, 1 Refills, Acute 04/25/24 9:41:00 EDT, 02/25/24 9:41:00 EDT, Solution, [facility], Partial fill upon patient requestif the prescription is for a schedule II opioid sheldon... Start Date: 02/25/24 Stop Date: 04/25/24 Status: Ordered Nicoderm C-Q Clear 21 mg/24 hr transdermal film, extended release 1 patch, Topically, Daily, # 30 patch, 0 Refills, Maintenance, 02/25/24 9:47:00 EDT, Patch, [facility], Partial fill upon patient request if the prescription is for a schedule II opioiddrug., 150, cm, 02/25/24 8:49:00 EDT, Height, 32.5,... Start Date: 02/25/24 Status: Ordered olanzapine 2.5 mg oral tablet 1, tablet, By Mouth, Daily at bedtime, DIRECTED., # 18 tablet, Refills 0, Maintenance, 02/19/24 8:02:00 EDT, Route to Pharmacy Electronically, [id number], 150.8, cm, 02/13/24 15:23:00 EDT, Height, 33.6, kg, 02/13/24 15:23:00 EDT, Dry Weight Start Date: 02/19/24 Status: Ordered ondansetron 8 mg oral tablet 1 tablet = 8 mg, By Mouth, Every 8 hours, PRN as needed for nausea/vomiting, # 30 tablet, 1 Refills, Maintenance, 01/29/24 14:24:00 EDT, Tablet, [facility]/pharmacy #[id number], Partial fill upon patient request if the prescription is for a schedule II opioid drug... Start Date: 01/29/24 Status: Ordered oxyCODONE 5 mg/5 mL oral solution 5 mL = 5 mg, By Mouth, Every 8 hours, # 105 mL, 0 Refills, Maintenance, 02/20/24 21:30:00 EDT, Solution, [facility], Partial fill upon [...] 1 Refills, Maintenance, 01/29/24 14:24:00 EDT, [facility]/pharmacy #[id number], Partial fill upon patient requestif the prescription is for a schedule II opioid sheldon... Start Date: 01/29/24 Status: Ordered senna 8.8 mg/5 mL oral syrup 10 mL = 17.6 mg, By Mouth, Daily at bedtime, PRN for constipation, # 240 mL, 0 Refills, Maintenance, 02/13/24 15:55:00 EDT, Syrup, [facility]/pharmacy #[id number], Partial fill upon patient [...] 06/24/24 9:41:00 EST, 02/25/24 9:41:00 EDT, Tablet, [facility], Partial fill upon patient request if [...] during admission No entered on: 03/05/24 Sex Patient Care team information Care Team Personnel Name: Caitlyn Orellana RN Position: [facility] RN Member Role: Primary Care Nurse Name: Jazlyn Marquez RN Position: [facility] RN Supv Member Role: Primary Care Nurse Name: Katelin Mcfadden RN Position: [facility] ALEXYS Nurse Member Role: Primary Care Nurse Name: Jude Mejia Position: [facility] RN Supv Member Role: Primary Care Nurse Name: Jennifer Flores MD Position: Reference Physician Member Role: PCP Address: Address: [address] [place], [place] - Name: Kemi Carpenter RN Position: [facility] RN Member Role: Primary Care Nurse Name: Zaida Gaspar RN Position: [facility] RN Member Role: Primary Care Nurse Name: Kemi Henry RN Position: [facility] Onco RN Member Role: Primary Care Nurse Name: Robert Arechiga RN Position: [facility] RN Member Role: Primary Care Nurse Name: Sienna Merida RN Position: [facility] Onco RN Member Role: Primary Care Nurse Name: Baltazar Villar RN Position: [facility] RN Member Role: Primary Care Nurse Name: Zoila Segundo RN Position: [facility] AMB Nurse Member Role: Primary Care Nurse Name: Izabel Cruz RN Position: [facility] RN Member Role: Primary Care Nurse Name: Betty Gomez RN Position: [facility] SN RN Member Role: Primary Care Nurse Name: Katy Jay RN Position: [facility] RN Member Role: Primary Care Nurse Name: Sarah Hammonds RN Position: [facility] Onco RN Member Role: Primary Care Nurse Name: Cabrera Peraza RN Position: [facility] RN Member Role: Primary Care Nurse Name: Garfield Chow RN Position: [facility] RN Member Role: Primary Care Nurse Name: Mitzi Blue RN Position: [facility] Onco RN Member Role: Primary Care Nurse Name: Ananda Pruitt RN Position: [facility] RN Member Role: Primary Care Nurse Name: Radha Gunn RN Position: [facility] RN Member Role: Primary Care Nurse Care Team Related Persons Name: CONI DEAL Name: REGI LAZAR Name: HELIO MOORE Address: home [address] [place], [place] Name: CINTHYA LANG Address: home [address] [place], [place] Name: SAIMA PERDUE Address: home [address] [place], [place] Name: SAIMA REYEZ Address: home [address] [place], [place]
--- OUTSIDE RECORDS SUMMARY | 2024-05-25 15:17 | XMS_ITS | Continuity of Care Document ---
Author Organization [facility] Address [address] [place] [address]- Care Team Providers Care State Assessed Properties Director Name Role Phone Mark MENDOZA, Jennifer Darnell Primary Care Physician Encounter [facility] [place] Date(s): 03/02/24 - 03/02/[address] [address]- Encounter Diagnosis Right arm numbness(Final) - 03/02/24 Discharge Disposition: A-D/C Home Attending Physician: Nadira Deluca MD Admitting Physician: Nadira Deluca MD Referring Physician: Not on Staff, Referring [...] drug. Start Date: 02/03/22 Status: Ordered Boost [facility] 1 carton (chocolate preferred) Dx: Laryngeal carcinoma Boost [facility] 1 carton (chocolate preferred) Dx: Laryngeal carcinoma, See Instructions, # 90 each, Refills 11, Tot. Refills 11, Maintenance, Pls d/c previous oral supplement orders. Begin Boost [facility] 1 carton po (chocolate preferred) tid. Ht: [...] 0 Refills, Maintenance, 02/13/24 15:56:00 EDT, Syrup, [facility]/pharmacy #[id number], Partial fill upon patient request if the prescription is for a schedule II opioid drug., 15 mL By Mouth... Start Date: 02/13/24 Status: Ordered lidocaine-prilocaine 2.5%-2.5% topical cream See Instructions, apply small dollop to [facility] 1 hr prior to appt and cover with plastic, #30 Gm, 1 Refills, Maintenance, 01/29/24 14:24:00 EDT, Cream, [facility]/pharmacy #[id number], Partial fill upon patient request if the prescription is for a schedul... Start Date: 01/29/24 Status: Ordered Lovenox 60 mg/0.6 mL injectable solution 0.5 mL = 50 mg, Subcutaneous Injection, Daily, for 30 days, # 15 mL, 1 Refills, Acute 04/25/24 9:41:00 EDT, 02/25/24 9:41:00 EDT, Solution, [facility], Partial fill upon patient requestif the prescription is for a schedule II opioid sheldon... Start Date: 02/25/24 Stop Date: 04/25/24 Status: Ordered Nicoderm C-Q Clear 21 mg/24 hr transdermal film, extended release 1 patch, Topically, Daily, # 30 patch, 0 Refills, Maintenance, 02/25/24 9:47:00 EDT, Patch, [facility], Partial fill upon patient request if the prescription is for a schedule II opioiddrug., 150, cm, 02/25/24 8:49:00 EDT, Height, 32.5,... Start Date: 02/25/24 Status: Ordered olanzapine 2.5 mg oral tablet 1, tablet, By Mouth, Daily at bedtime, DIRECTED., # 18 tablet, Refills 0, Maintenance, 02/19/24 8:02:00 EDT, Route to Pharmacy Electronically, [id number], 150.8, cm, 02/13/24 15:23:00 EDT, Height, 33.6, kg, 02/13/24 15:23:00 EDT, Dry Weight Start Date: 02/19/24 Status: Ordered ondansetron 8 mg oral tablet 1 tablet = 8 mg, By Mouth, Every 8 hours, PRN as needed for nausea/vomiting, # 30 tablet, 1 Refills, Maintenance, 01/29/24 14:24:00 EDT, Tablet, [facility]/pharmacy #[id number], Partial fill upon patient request if the prescription is for a schedule II opioid drug... Start Date: 01/29/24 Status: Ordered oxyCODONE 5 mg/5 mL oral solution 5 mL = 5 mg, By Mouth, Every 8 hours, # 105 mL, 0 Refills, Maintenance, 02/20/24 21:30:00 EDT, Solution, [facility], Partial fill upon patient [...] 1 Refills, Maintenance, 01/29/24 14:24:00 EDT, [facility]/pharmacy #[id number], Partial fill upon patient requestif [...] Refills, Maintenance, 02/13/24 15:55:00 EDT, Syrup, [facility]/pharmacy #[id number], Partial fill upon patient request [...] 1 Refills, Maintenance, 02/12/24 13:55:00 EDT, Liquid, [facility]/pharmacy #[id number], Partial fill upon patient request [...] 06/24/24 9:41:00 EST, 02/25/24 9:41:00 EDT, Tablet, [facility], Partial fill upon patient [...] Exam Date Time Procedure Performing Provider Status 03/02/24 9:[address] Cervical Spine W/O Contrast Galina Baird; Camilla (Verified) Notes: (CT Cervical Spine W/O Contrast) Reason For Exam: Neck trauma, dangerous injury mechanism;Other: RESULT: CT Cervical Spine W/O Contrast CT Head/Brain W+W/O Contrast, CT Cervical Spine W/O Contrast CLINICAL INDICATION: Reason infarcts as seen on CT scan 02/23/2024 and MRI 02/24/2024.. On treatment for laryngeal carcinoma. Recent right arm numbness. Examination with IV contrast for concern of potential metastasis. PRIOR EXAMS: 02/23/2024. TECHNIQUE: Head CT and cervical spine was performed without intravenous contrast, using axial technique and reconstructed in axial and coronal plane. Iterative reconstruction techniques are used to optimize dose and image quality. Examination was then repeated through the head following intravenous injection of 75 cc Omnipaque 300 intravenous contrast. FINDINGS: BRAIN: There is a recent right parietal infarct which is unchanged in size and appearance. On the left side, a known recent infarct laterally in the frontal-parietal region is barely detectable and is unchanged. Small infarct more posteriorly in the parietal region is unchanged. There is no new infarct.. There is no intracerebral hemorrhage. There is no mass. There is no abnormal enhancement. VENTRICLES, SULCI, AND CISTERNS: The ventricles and sulci are symmetrical and normal. EXTRA AXIAL SPACES: There is no abnormal epidural, subdural, or subarachnoid blood or fluid. SKULL: There is no skull fracture.. PARANASAL SINUSES: Clear. TEMPORAL BONES: On the right side mastoid air cells and middle ear cavities clear. On the left side there is partial opacification of the mastoids and there is opacification of the middle ear cavity. No associated fracture. This finding was present previously. CERVICAL SPINE: There is no fracture. No focal lesion. Normal alignment. Mild degenerative change. IMPRESSION: HEAD: 1. The recent bilateral cerebral hemisphere infarcts are unchanged. 2. There is no new abnormality including no hemorrhage, and no evidence of enhancement or other abnormality that would indicate presence of metastatic disease.. 3. No skull fracture. 4. No change left middle ear opacification. CERVICAL SPINE: 1. No fracture. 2. Normal alignment. 3. Mild degenerative change. WSN: [id number] Ordering Physician: Leonel Rogers Dictated By: Josr Kamara MD Dictated Date/Time: 03/02/24 9:21 am Reviewed By: Josr Kamara MD Signed By: Josr Kamara MD Signed Date/Time: 03/02/24 9:21 am Transcribed By: RADHA Transcribed Date/Time: 03/02/24 9:01 am * Exam Date Time Procedure Performing Provider Status 03/02/24 9:[address] Head/Brain W+W/O Contrast Galina Baird; Auth (Verified) Notes: (CT Head/Brain W+W/O Contrast) Reason For Exam: pulm aspergillosis & recent stroke, RUE neuro deficit;Other: RESULT: CT Head/Brain W+W/O Contrast CT Head/Brain W+W/O Contrast, CT Cervical Spine W/O Contrast CLINICAL INDICATION: Reason infarcts as seen on CT scan 02/23/2024 and MRI 02/24/2024.. On treatment for laryngeal carcinoma. Recent right arm numbness. Examination with IV contrast for concern of potential metastasis. PRIOR EXAMS: 02/23/2024. TECHNIQUE: Head CT and cervical spine was performed without intravenous contrast, using axial technique and reconstructed in axial and coronal plane. Iterative reconstruction techniques are used to optimize dose and image quality. Examination was then repeated through the head following intravenous injection of 75 cc Omnipaque 300 intravenous contrast. FINDINGS: BRAIN: There is a recent right parietal infarct which is unchanged in size and appearance. On the left side, a known recent infarct laterally in the frontal-parietal region is barely detectable and is unchanged. Small infarct more posteriorly in the parietal region is unchanged. There is no new infarct.. There is no intracerebral hemorrhage. There is no mass. There is no abnormal enhancement. VENTRICLES, SULCI, AND CISTERNS: The ventricles and sulci are symmetrical and normal. EXTRA AXIAL SPACES: There is no abnormal epidural, subdural, or subarachnoid blood or fluid. SKULL: There is no skull fracture.. PARANASAL SINUSES: Clear. TEMPORAL BONES: On the right side mastoid air cells and middle ear cavities clear. On the left side there is partial opacification of the mastoids and there is opacification of the middle ear cavity. No associated fracture. This finding was present previously. CERVICAL SPINE: There is no fracture. No focal lesion. Normal alignment. Mild degenerative change. IMPRESSION: HEAD: 1. The recent bilateral cerebral hemisphere infarcts are unchanged. 2. There is no new abnormality including no hemorrhage, and no evidence of enhancement or other abnormality that would indicate presence of metastatic disease.. 3. No skull fracture. 4. No change left middle ear opacification. CERVICAL SPINE: 1. No fracture. 2. Normal alignment. 3. Mild degenerative change. WSN: [id number] Ordering Physician: Leonel Rogers Dictated By: Josr Kamara MD Dictated Date/Time: 03/02/24 9:21 am Reviewed By: Josr Kamara MD Signed By: Josr Kamara MD Signed Date/Time: 03/02/24 9:21 am Transcribed By: RADHA Transcribed Date/Time: 03/02/24 9:01 am * Exam Date Time Procedure Performing Provider Status 03/02/24 8:45 AM Chest 2 Views Frontal and Lat Jaquelin Carrera; Camilla (Verified) Notes: (Chest 2 Views Frontal and Lat) Reason For Exam: pulm aspergillosis, interval FU for progression;Other: RESULT: Chest 2 Views Frontal and Lat Chest 2 Views Frontal and Lat INDICATION/CLINICAL QUESTION: Hx of Present Illness: Pt coming from home w persistent R arm numbessthat has not improved since sustaining a stroke x2wk ago.; Ongoing therapy for laryngeal carcinoma. No biopsy-proven aspergillosis right upper lobe. TECHNIQUE: Frontal and lateral views of the chest. COMPARISON: 02/21/2024.. FINDINGS: LINES AND TUBES: Central line tip just at the right atrium. LUNGS AND PLEURA: The lungs are large representing COPD. Irregular opacity in the upper lobe is similar in appearance to prior examinations and corresponds well with the finding on CT 02/23/2024. The lungs are otherwise clear. No pleural effusion. No pneumothorax. HEART, MEDIASTINUM AND NESSA: The heart is of normal size. The mediastinum and nessa are normal. BONES AND SOFT TISSUES: No acute bony abnormality. IMPRESSION: 1. No gross change in known right upper lung aspergillosis infection. 2. Large lungs due to COPD. 3. No new abnormality. WSN: [id number] Ordering Physician: Leonel Rogers Dictated By: Josr Kamara MD Dictated Date/Time: 03/02/24 8:51 am Reviewed By: Josr Kamara MD Signed By: Josr Kamara MD Signed Date/Time: 03/02/24 8:51 am Transcribed By: RADHA Transcribed Date/Time: 03/02/24 8:50 am Vital Signs Most recent to oldest [Reference Range]: 1 2 3 Oxygen Saturation [94-100 %] 99 % (03/02/24 11:52 AM) 98 % (03/02/24 7:38 AM) 98 % (03/02/24 7:14 AM) Pulse Rate [55-90 bpm] 77 bpm (03/02/24 11:52 AM) 76 bpm (03/02/24 7:38 AM) 69 bpm (03/02/24 7:14 AM) Blood Pressure [90-138/55-84 mm Hg] 136/87mm Hg (03/02/24 11:52 AM) 133/88mm Hg (03/02/24 7:38 AM) 140/90mm Hg *H* (03/02/24 7:14 AM) Respiratory Rate [16-30 br/min] 15 br/min *L* (03/02/24 11:52 AM) 15 br/min *L* (03/02/24 7:38 AM) 15 br/min *L* (03/02/24 7:14 AM) Temperature [96.8-100.4 DegF] 98.6 DegF (03/02/24 11:52 AM) 99.0 DegF (03/02/24 7:38 AM) 99.1 DegF (03/02/24 7:14 AM) Mode of Delivery (Oxygen) Room air (03/02/24 11:52 AM) Room air (03/02/24 7:38 AM) Room air (03/02/24 7:14 AM) Blood pressure sites Arm, left (03/02/24 11:52 AM) Arm, left (03/02/24 7:38 AM) Arm, left (03/02/24 7:14 AM) Temperature Route Oral (03/02/24 11:52 AM) Oral (03/02/24 7:38 AM) Oral (03/02/24 7:14 AM) Social History Social History Type Response Smoking Status 10 or more cigarette s (1/2 pack or more)/day in last 30 days; Interested in cessation: No; Patient wants NRT during admission No entered on: 02/20/24 Sex EKG study * Event Display: ECG 12-Lead Authored Date: Please click on pdf link to open report * Event Display: ECG 12-Lead Authored Date: Ventricular Rate: 59 BPM Atrial Rate: 59 BPM P-R Interval: 102 ms QRS Duration: 62 ms Q-T Interval: 444 ms QTC Calculation(Bazett): 439 ms P [place]: 78 degrees R [place]: 52 degrees T [place]: 73 degrees Sinus bradycardia Probably normal ekg When compared with ECG of 21-FEB-2024 18:37, Arm leads are now correctly placed Confirmed by ELIJAH PAREDES ([id number]) on 03/02/2024 10:26:59 AM [place]: ELIJAH PAREDES Patient Care team information Care Team Personnel Name: Katelin Mcfadden RN Position: [facility] RN Member Role: Primary Care Nurse Name: Jude Mejia Position: [facility] Supv Member Role: Primary Care Nurse Name: Jennifer Flores MD Position: Reference Physician Member Role: PCP Address: Address: [address] [place] [address]- [place] Name: Kemi Henry RN Position: [facility] Onco RN Member Role: Primary Care Nurse Name: Robert Arechiga RN Position: [facility] RN Member Role: Primary Care Nurse Name: Sienna Merida RN Position: [facility] Onco RN Member Role: Primary Care Nurse Name: Zoila Segundo RN Position: [facility] AMB Nurse Member Role: Primary Care Nurse Name: Izabel Cruz RN Position: [facility] RN Member Role: Primary Care Nurse Name: Betty Goemz RN Position: [facility] SN RN Member Role: Primary Care Nurse Name: Cabrera Peraza RN Position: [facility] RN Member Role: Primary Care Nurse Name: Mitzi Blue RN Position: [facility] Onco RN Member Role: Primary Care Nurse Name: Radha Gunn RN Position: [facility] RN Member Role: Primary Care Nurse Care Team Related Persons Name: CONI DEAL Name: REGI LAZAR Name: HELIO MOORE Address: home [address] [place], [place] Name: CINTHYA LANG Address: [address] [place], [place] Name: SAIMA PERDUE Address: home [address] [place], [place] Name: SAIMA REYEZ Address: home [address] [place], [place]
--- OUTSIDE RECORDS SUMMARY | 2024-05-25 15:17 | XMS_ITS | Continuity of Care Document ---
Author Organization [facility] Address [address] [place] [id number]- Care Team Providers Care Production Manufacturing Worker Name Role Phone Mark MENDOZA, Jennifer Darnell Primary Care Physician [place] [id number] Date(s): 01/01/24 - 01/01/[address] [address] Discharge Disposition: A-D/C Home Attending Physician: Avery More MD Admitting Physician: Avery More MD Referring Physician: Avery More MD Allergies, Adverse Reactions, Alerts Substance Reaction [...] 11/14/22 7:49:00 EDT, Route to Pharmacy Electronically, [id number], 154.94, cm, 02/18/22 8:56:00 EDT, Height, 43.1, [...] 07/07/20 13:21:00 EST, Route to Pharmacy Electronically, [facility] #[id number], 155, cm, 07/07/20 13:19:00 EST, Height, 39.6, [...] 50 mg, By Mouth, Every 6 hours, 0 Refills, Maintenance, 12/14/23 14:34:00 EDT, Partial fillupon patient request if the prescription is for a schedule II opioid drug. Start Date: 12/14/23 Status: Ordered Tylenol 8 HR Arthritis Pain [...] Exam Date Time Procedure Performing Provider Status 01/01/24 11:58 AM Chest Single Frontal View Noel Traylor; Auth (Verified) Notes: (Chest Single Frontal View) Reason For Exam: S/P RUL LUNG BIOPSY;Postop RESULT: Chest Single Frontal View Chest Single Frontal View Reason: Postop; S P RUL LUNG BIOPSY; Clinical Question(s): Postop; Order Comment: COMPARISON: 01/01/2024 at 0959 hours. FINDINGS: LINES AND TUBES: None. LUNGS AND PLEURA: Ill-defined opacities in the right upper lobe increasing in extent consistent with possible increasing parenchymal hemorrhage.. Normal pulmonary vascularity. No pleural effusion. The right apical pneumothorax has also slightly increased in size with the pleural separation measuring about 18 mm. Clear left lung. HEART, MEDIASTINUM AND BENNY: Heart is normal in size. Normal mediastinal and hilar contour. BONES AND SOFT TISSUES: No acute abnormality. IMPRESSION: Increasing ill-defined opacities in the right upper lobe. Slightly increased right apical pneumothorax with the pleural separation increasing from 13 mm to 18 mm. WSN: [id number] Ordering Physician: Kye Hagan Dictated By: Kobe Cano MD, V Dictated Date/Time: 01/01/24 12:32 p Reviewed By: Kobe Cano MD, V Signed By: Kobe Cano MD, V Signed Date/Time: 01/01/24 12:32 pm Transcribed By: RADHA Transcribed Date/Time: 01/01/24 12:30 pm * Exam Date Time Procedure Performing Provider Status 01/01/24 10:10 AM Chest Single Frontal View Adilene Savage; Auth (Verified) Notes: (Chest Single Frontal View) Reason For Exam: S/P RUL LUNG BIOPSY;Postop RESULT: Chest Single Frontal View Chest Single Frontal View Reason: Postop; S P RUL LUNG BIOPSY; Clinical Question(s): Postop COMPARISON: Multiple prior chest radiographs with the most recent dated 11/18/2018. PET/CT dated 11/26/2023. FINDINGS: LINES AND TUBES: None. LUNGS AND PLEURA: Ill-defined opacity right upper lobe which probably represents a combination of a partially cavitating spiculated mass and surrounding parenchymal hemorrhage status post transthoracic lung biopsy performed this morning. Moderate emphysema bilaterally. Normal pulmonary vascularity. No pleural effusion. There is a 13 mm right apical pneumothorax appearing. HEART, MEDIASTINUM AND BENNY: Heart is normal in size. Prominent right hilum probably vascular in nature. BONES AND SOFT TISSUES: No acute abnormality. Mild degenerative change of both shoulders. IMPRESSION: 13 mm right apical pneumothorax appearing. WSN: [id number] Ordering Physician: Kye Hagan Dictated By: Kobe Cano MD, V Dictated Date/Time: 01/01/24 10:27 a Reviewed By: Kobe Cano MD, V Signed By: Kobe Cano MD, V Signed Date/Time: 01/01/24 10:27 am Transcribed By: RADHA Transcribed Date/Time: 01/01/24 10:18 am * Exam Date Time Procedure Performing Provider Status 01/01/24 9:13 AM IR End of Case Report Aut h (Verified) IR End of Case Report * Exam Date Time Procedure Performing Provider Status 01/01/24 9:[address] Guide Lung Biopsy Shiela Alexander; Auth (Verified) Notes: (CT Guide Lung Biopsy) Reason For Exam: RUL MASS SEEN ON CT PET CT Guide Lung Biopsy Patient: KIM VEGA Study Date: 01/01/2024 Performing: Kye Hagan MD Referring: : 1960 Age: 63 Gender: FEMALE PROCEDURE: CT guided lung nodule biopsy INDICATION: FDG avid right lung nodule, head and neck cancer, smoker. BAND SAW FILER(S): Kye Hagan MD ANESTHESIA: Lidocaine was administered for local anesthesia. Versed 0.5 mg IV, Fentanyl 25 mcg IV, Fentanyl 25 mcg IV Kye Hagan MD and the patient was independently monitored by Darcie Erwin RN Sedation start time: 08:36:00 Sedation end time: 09:50:00 TECHNIQUE: Informed consent was obtained from the patient prior to the start of the procedure. A timeout procedure was done, confirming the correct patient and the correct side of procedure. A limited CT scan of the right was performed using automatic tube current modulation to optimize exposure parameters. A suitable access site was identified, marked, prepped, and draped in standard fashion. Buffered 1% lidocaine was administered for local anesthesia. Using intermittent CT fluoroscopy guidance, a 19 Ga introducer needle was advanced to the periphery of the target lesion and 4 core biopsies obtained using 20 Ga Temno needles. A post biopsy scan was performed. A sample was sent for requested studies. COMPLICATIONS: The patient tolerated the procedure well and in stable condition. There were no immediate complications. Findings: A spiculated right lung biopsied as above. Post biopsy scan demonstrates perilesional hemorrhage but no pneumothorax. . PLAN: Routine post procedure monitoring. Chest radiographs immediately and 2 hours post procedure to assess for delayed complications. IMPRESSION: CT-guided lung biopsy of right lung nodule. Agent Dose Route Time By Versed 0.5 mg IV 09:36:38 Fentanyl 25 mcg IV 09:36:41 Fentanyl 25 mcg IV 09:44:54 Signed By Kye Hagan MD On 01/01/2024 10:08:40 Signed By Kye Hagan MD On 01/01/2024 10:08:40 Kye Hagan MD Equipment : [facility] marshallindex TEMNO 20 X 11 [facility] TEMNO 20 X 11 Dictated By: Kye Hagan MD Dictated Date/Time: 01/01/24 9:13 am Reviewed By: Kye Hagan MD Signed By: Kye Hagan MD Signed Date/Time: 01/01/24 9:13 am Transcribed By: GINNY Transcribed Date/Time: 01/01/24 9:13 am Vital Signs Most recent to oldest [Reference Range]: 1 Height 154.94 cm (01/01/24 7:29 AM) Weight 35 kg (01/01/24 7:29 AM) Oxygen Saturation [94-100 %] 99 % (01/01/24 7:27 AM) Pulse Rate [55-90 bpm] 73 bpm (01/01/24 7:27 AM) Blood Pressure [90-138/55-84 mm Hg] 151/ 66mm Hg *H* (01/01/24 7: AM) Respiratory Rate [16-30 br/min] 18 br/mi n (01/01/24 7: AM) Temperature [96.8-100.4 DegF] 97.5 DegF (01/01/24 7:27 AM) Mode of Delivery (Oxygen) Room air (01/01/24 7:27 AM) Blood pressure sites Arm, right (01/01/24 7:27 AM) Temperature Route Oral (01/01/24 7:27 AM) Dry Weight 35 kg (01/01/24 7:29 AM) Social History Social History Type Response Smoking Status Current every day yissel davalos entered on: 01/26/15 Sex Hospital Progress note * Tim JIMENEZ, Sheela: SIGN, MODIFY, PERFORM, SIGN, VERIFY Hellen JIMENEZ, Garfield: SIGN, MODIFY Hellen JIMENEZ, Garfield: MODIFY Event Display: Progress Note Hospital Authored Date: Patient: KIM EVGA Age: 63 years Sex: Female : 1960 Associated Diagnoses: None Author: Sheela Dumont RN Findings Nursing Data IV Lines. : IV Lines. 01/01/2024 7:00 EDT Right Antecubital 22 gauge Peripheral IV Activity: Start Peripheral IV Insertion Date/Time: 01/01/2024 7:40 Peripheral IV Number of Attempts: 1 Peripheral IV Site Assessment: Flushes Well, Good Blood return Peripheral IV Comment: done by Garfield JIMENEZ . Vital Signs : VITAL SIGNS SECTION 01/01/2024 7:27 EDT Temperature 97.5 DegF Temperature Route Oral Pulse Rate 73 bpm Respiratory Rate 18 br/min Systolic Blood Pressure 151 mm Hg H Diastolic Blood Pressure 66 mm Hg Blood pressure sites Arm, right Mean Arterial Pressure 94 mm Hg Pulse Pressure 85 mm Hg Oxygen Saturation 99 % Mode of Delivery (Oxygen) Room air . Narrative/Incidental pt here for lung biopsy, alert and oriented, c/o pain d/t cancer at admission time, labs drawn, sent. NPO since midnight. pt don't take any med except inhaler, this is because I cant swallow pills . Call baker within reach. * Tim JIMENEZ, Sheela: PERFORM Event Display: Progress Note Hospital Authored Date: pt returned from procedure awake, alert and oriented, denied pain, VSS, dressing to Rt upper chest with tiny blood stain, no crepitus noted. Plan of care discussed, nutrition offered. Call baker within reach * Garfield Macedo RN: PERFORM Event Display: Progress Note Hospital Authored Date: VSS. No change to dressing. Still no signs or symptoms of bleeding or hematoma. Verbally cleared for discharge via phone by . IV d/c'd. Discharge instructions reviewed and signed. Questions asked and answered. Note * Garfield Macedo RN: PERFORM Event Display: Discharge/Transfer Note Hospital Authored Date: Nursing Discharge Note Entered On: 01/01/2024 13:01 EDT Performed On: 01/01/2024 13:01 EDT by Garfield Macedo RN Nursing Discharge Note 2 Discharge Time : 01/01/2024 13:01 EDT Discharge Level of Care at Discharge : Home/Usp/Foster Care Patient Left Unit Via : Wheelchair Patient Accompanied Off Unit with : Responsible adult DC Instructions Provided & Signed by Pt : Yes Patient Understands D/C Instructions : Yes Patient Instructions Discharge Signed : Yes Did Pt have Specialty Bed or Wound Vac : No Garfield Macedo RN - 01/01/2024 13:01 EDT Patient Care team information Care Team Personnel Name: Katelin Mcfadden RN Position: S RN Member Role: Primary Care Nurse Name: Mark MENDOZA , Jennifer Darnell Position: Reference Physician Member Role: PCP Address: Address: [address] [place], [place] - Name: Robert Arechiga RN Position: [facility] RN Member Role: Primary Care Nurse Name: Zoila Segundo RN Position: [facility] ALEXYS Nurse Member Role: Primary Care Nurse Name: Betty Gomez RN Position: [facility] SN RN Member Role: Primary Care Nurse Care Team Related Persons Name: CONI DEAL Name: HELIO MOORE Address: home [address] [place], [place] Name: CINTHYA LANG Address: home [address], [place] Name: MICK ALARCON Address: home [address] [place], [place] Name: SAIMA PERDUE Address: home [address] [place], [place] Name: SAIMA REYEZ Address: home [address] [place], [place]
--- OUTSIDE RECORDS SUMMARY | 2024-05-25 15:17 | XMS_ITS | Continuity of Care Document ---
Author Organization [facility] Address [address] [place] [address]- Care Team Providers Care Parts Sales Associate Name Role Phone Mark MENDOZA, Jennifer Darnell Primary Care Physician Encounter [facility] [place] Date(s): 12/03/21 - 12/10/21 [facility] [address] [place] [place] [address] Attending Physician: Uli GARCÍA, Saba Tripp Admitting Physician: Uli GARCÍA, Saba Tripp Referring Physician: Mark MENDOZA , Jennifer Darnell Allergies, Adverse Reactions, Alerts Substance Reaction Severity [...] tablet, Refills 1, Route to Pharmacy Electronically, [id number], 155, cm, 12/03/21 8:45:00 EDT, Height, 39.6, [...] 07/07/20 13:21:00 EST, Route to Pharmacy Electronically, [facility][id number], 155, cm, 07/07/20 13:19:00 EST, Height, 39.6, [...] oldest [Reference Range]: 1 Height 155 cm (12/03/21 8:45 AM) Weight 40.9 kg (12/03/21 8:45 AM) Pulse Rate [55-90 bpm] 76 bpm (12/03/21 8:45 AM) Body Mass Index [18.5-24.99] 17.02 *L* (12/03/21 8:45 AM) Blood Pressure [90-138/55-84 mm Hg] 124/ 72mm Hg (12/03/21 8:45 AM) Blood pressure sites Arm, right (12/03/21 8:45 AM) Weight Obtained Via Patient/family state d (12/03/21 8:45 AM) Social History Social History Type Response Smoking Status Current every day yissel davalos entered on: 01/26/15 Sex
--- OUTSIDE RECORDS SUMMARY | 2024-05-25 15:17 | XMS_ITS | Continuity of Care Document ---
Author Organization [facility] Address [address] [place] [address]- Care Team Providers Care Publication Distributor Name Role Phone Not on Staff, PCP Primary Care Physician Unavail able Encounter [facility] [place] Date(s): 05/23/24 - 05/24/[address] [address]- Encounter Diagnosis Lumbar vertebral fracture(Final) - 05/24/24 Discharge Disposition: A-D/C Home Attending Physician: Gwen Vergara MD Admitting Physician: Gwen Vergara MD Referring Physician: Not on Staff, Referring [...] 0 Refills, Maintenance, 01/29/24 14:25:00 EDT, [facility]/pharmacy #[id number], Partial fill upon patient request, 155, cm, 01/16/24 6:10:00 EDT, Height... Start Date: 01/29/24 Status: Ordered lactulose 10 gm/15 ml oral syrup 15 mL = 10 Gm, By Mouth, Daily, PRN as needed for constipation, # 1,350 mL, 0 Refills, Maintenance,03/07/24 12:06:00 EDT, Syrup, [facility]/pharmacy #[id number], Partial fill upon patient request if the prescription is for a schedule II opioid drug., 15 mL By Adry... Start Date: 03/07/24 Status: Ordered lidocaine-prilocaine 2.5%-2.5% topical cream See Instructions, apply small dollop [facility] 1 hr prior to appt [...] 0 Refills, Maintenance, 02/25/24 9:47:00 EDT, Patch, [facility], Partial fill upon patient request if the prescription is for a schedule II opioiddrug., 150, cm, 02/25/24 8:49:00 EDT, Height, 32.5,... Start Date: 02/25/24 Status: Ordered olanzapine 2.5 mg oral tablet 1, tablet, By Mouth, Daily at bedtime, DIRECTED., # 18 tablet, Refills 0, Maintenance, 02/19/24 8:02:00 EDT, Route to Pharmacy Electronically, [id number], 150.8, cm, 02/13/24 15:23:00 EDT, Height, 33.6, [...] Start Date: 05/17/24 Status: Ordered oxyCODONE 5 mg/5 mL oral solution 5 mL = 5 mg, By Mouth, Every 8 hours, PRN Pain , Severe, # 105 mL, 0 Refills, Maintenance, 05/17/2415:43:00 EDT, Solution, [facility], Partial fill upon patient request if the prescription is for a schedule II opioid drug., 155, cm, ... Start Date: 05/17/24 Stop Date: 05/24/24 Status: [...] 0 Refills, Maintenance, 05/17/24 16:01:00 EDT, Capsule, [facility], Partial fill upon patient request if the prescription is for a schedule II opioid drug., 155, cm, 05/17/24 7:59:00 EDT... Start Date: 05/17/24 Stop Date: 06/16/24 Status: Ordered voriconazole 200 mg oral tablet = 200 mg, By Mouth, Every 12 hours, for 30 days, # 60 tablet, 3 Refills, Acute 09/14/24 16:09:00 EST, 05/17/24 16:09:00 EDT, Tablet, [id number], Partial fill upon [...] right arm Confirmed Active Results Radiology Reports * Exam Date Time Procedure Performing Provider Status 05/23/24 12:57 PM Chest 2 Views Frontal and Lat Bhavya Smith; Camilla (Verified) Notes: (Chest 2 Views Frontal and Lat) Reason For Exam: Shortness of Breath, Fever;Other: RESULT: Chest 2 Views Frontal and Lat Examination: Chest performed on 05/23/2024. History: Shortness of breath. Findings: Frontal and lateral views of the chest are compared to a prior study dated 03/02/2024. Port-A-Cath is demonstrated. The cardiac and mediastinal silhouettes are within normal limits. Low lung volumes are seen. The lungs are clear. The osseous and soft tissue structures are unremarkable. Impression: There is no acute cardiopulmonary disease. WSN: [id number] Ordering Physician: Carlos Lawton Dictated By: Sabrina Flores MD Dictated Date/Time: 05/23/24 1:08 pm Reviewed By: Sabrina Flores MD Signed By: Sabrina Flores MD Signed Date/Time: 05/23/24 1:08 pm Transcribed By: RADHA Transcribed Date/Time: 05/23/24 1:02 pm Vital Signs Most recent to oldest [Reference Range]: 1 2 3 Oxygen Saturation [94-100 %] 96 % (05/24/24 7:35 AM) 94 % (05/24/24 4:51 AM) 96 % (05/24/24 12:59 AM) Pulse Rate [55-90 bpm] 60 bpm (05/24/24 7:35 AM) 54 bpm *L* (05/24/24 4:51 AM) 66 bpm (05/24/24 12:59 AM) Blood Pressure [90-138/55-84 mm Hg] 156/62mm Hg *H* (05/24/24 7:35 AM) 154/54mm Hg *H* (05/24/24 4:51 AM) 146/67mm Hg *H* (05/24/24 12:59 AM) Respiratory Rate [16-30 br/min] 16 br/min (05/24/24 7:35 AM) 16 br/min (05/24/24 4:51 AM) 16 br/min (05/24/24 12:59 AM) Temperature [96.8-100.4 DegF] 97.4 DegF (05/24/24 7:35 AM) 98.1 DegF (05/24/24 12:59 AM) 98.2 DegF (05/23/24 9:43 PM) Mode of Delivery (Oxygen) Room air (05/24/24 7:35 AM) Room air (05/24/24 4:51 AM) Room air (05/24/24 12:59 AM) Blood pressure sites Arm, right (05/24/24 7:35 AM) Arm, right (05/24/24 4:51 AM) Arm, right (05/24/24 12:59 AM) Temperature Route Oral (05/24/24 7:35 AM) Oral (05/24/24 12:59 AM) Oral (05/23/24 9:43 PM) Social History Social History Type Response Smoking Status 10 or more cigarette s (1/2 pack or more)/day in last 30 days; Interested in cessation: No; Patient wants NRT during admission No entered on: 04/09/24 Sex Hospital Progress note * Becka Pike RN: PERFORM, SIGN, VERIFY Event Display: Progress Note Hospital Authored Date: Patient: KIM VEGA Age: 64 years Sex: Female : 1960 Associated Diagnoses: None Author: Becka Pike RN Discharge Plan Case Management Discharge Plan : Case Management Discharge Plan Data 05/24/2024 16:39 EDT Discharge Level of Care at Discharge Homehealth/VNA Discharge VNA/Hospice/Home Care [facility] [phone] Service Categories #1 Physical Therapy 05/24/2024 15:01 EDT Discharge Level of Care at Discharge Home/Residential/Foster Care 05/17/2024 18:50 EDT Discharge Level of Care at Discharge Home/Residential/Foster Care Note * Gwen Vergara MD: SIGN, PERFORM, SIGN, VERIFY Event Display: Patient Education Handout Authored Date: * Gwen Vergara MD: PERFORM Event Display: Patient Education Leaflets Authored Date: Vertebral Compression Fracture ?? [id number] Vertebral Compression Fracture You have a crushed vertebra. This is a compression fracture of 1 or more bones in your spine. This kind of break usually happens in older people with thinning of the bones called osteoporosis. It mayhappen after a ground-level fall or even with a very minor force. This can include bending forward,getting up from a seated position, coughing, or sneezing. It may also occur in young healthy people after a severe injury, such as a car accident or a fall from a height. This is generally a stable break. This means the spine doesn't need to be realigned orfused. And it usually doesn't cause any injury to the spinal cord or nerves. This injury often takes 1 to 3 months to heal. It can be treated at home with bed rest and pain medicine. Prescription or nbfl-doj-fnyibiv pain medicine can be used to control the pain. Long-term use of pain medicine can increase the risk of side effects. This includes liver or kidney damage, gastrointestinal bleeding, constipation, or narcotic dependence. If you have chronic liver or kidney disease, or ever had a stomach ulcer or gastrointestinal bleeding, talk with your healthcare provider before using these medicines. If pain medicine is needed for more than 1 to 2 weeks, talk with your providerabout other treatment options. A back brace or abdominal binder may be prescribed. This reduces pain by limiting motion at the fracture site. If you have osteoporosis, talk with your healthcare provider about using calcium and vitamin D3 supplements. You may need prescription medicines to prevent further bone loss. If you take co rticosteroids, smoke or take nicotine products, or you had a bariatric surgery, talk to your provider about how this affects your bones. An exercise program to increase spine strength is a very important part of the treatment plan. It should start once the pain is under control. If you have severe and lasting pain, your provider may advise a procedure called a vertebral augmentation. In this procedure, a needle is used to inject a bone cement into the fractured vertebra. Home care ??? You may need to stay in bed for the first few days. But start sitting or walking as soon as possible. This will help prevent problems with prolonged bed rest such as: muscle weakness, worsening back stiffness and pain, and blood clots in the legs. ??? When in bed, try to find a comfortable position. A firm mattress is best. Try lying flat on your back with pillows under your knees. You can also try lying on your side with your knees bent up toward your chest and a pillow between your knees. ??? Don't sit for long periods of time. This puts more stress on the low back than standing or walking. ??? Apply an ice pack over the injured area for 15 to 20 minutes every 3 to 6 hours. You should do this for the first 24 to 48 hours. To make an ice pack, put ice cubes in a plastic bagthat seals at the top. Wrap the bag in a thin towel or cloth before using it. You can start with ice, then switch to heat after 2 days. Apply heat (warm shower or warm bath) for 15 to 20 minutes several times a day for muscle spasms. Some people feel best alternating ice and heat treatments. Use the one method that feels the best to you. Be careful not to injure your skin with the ice or heat treatments. Ice should never be applied directly to skin. Warm rather than hot heat should be used to protect skin areas that have decreased sensation. ??? Take pain medicine as directed. Call your healthcare provider if your pain isn't well-controlled. A dose change, stronger medicine, or other treatment options may be needed. ??? Be aware of safe lifting methods. Don't lift anything over 10 pounds until all the pain is gone. ?? Follow-up care Follow up with your healthcare provider as advised. If X-rays were taken, you'll be told of any newfindings that may affect your care. ?? Call 911 Call 911 if you have: ??? Weakness or numbness in 1 or both legs ??? Loss of control over bowels orbladder ??? Numbness in the groin area ?? When to get medical advice Call your healthcare provider right away if the pain gets worse or spreads to your arms or legs. ?? Last Reviewed Date: 2021 ?? [id number] The [employer]. All rights reserved. This information is not intended as a substitute for professional medical care. Always follow your healthcare professional's instructions. ?? Patient Care team information Care Team Personnel Name: Radha Cr RN Position: [facility] RN Member Role: Primary Care Nurse Name: Caitlyn Orellana RN Position: [facility] RN Member Role: Primary Care Nurse Name: Jazlyn Marquez RN Position: [facility] RN Supv Member Role: Primary Care Nurse Name: Katelin Mcfadden RN Position: [facility] AMB Nurse Member Role: Primary Care Nurse Name: Jude Mejia Position: [facility] RN Supv Member Role: Primary Care Nurse Name: Kemi Carpenter RN Position: [facility] [...] Nurse Name: Not on Staff, PCP Position: [facility] Physician (General Medicine) Member Role: PCP Name: Zoila Segundo RN Position: [facility] [...] RN Member Role: Primary Care Nurse Name: iMtzi Blue RN Position: [facility] Onco RN Member Role: Primary Care Nurse Name: Coleman Steiner RN Position: [facility] RN Member Role: Primary Care Nurse Name: Ananda Pruitt RN Position: [facility] RN Member Role: Primary Care Nurse Name: Radha Gunn RN Position: [facility] RN Member Role: Primary Care Nurse Care Team Related Persons Name: CONI DEAL Name: REGI LAZAR Name: HELIO MOORE Address: home [address], [place] Name: CINTHYA LANG Address: [address] [place], [place] Name: SAIMA PERDUE Address: home [address] [place], [place] Name: SAIMA REYEZ Address: home [address] [place], [place]
--- OUTSIDE RECORDS SUMMARY | 2024-05-25 15:17 | XMS_ITS | Continuity of Care Document ---
Author Organization [facility] Address [address] [place] [id number]- Care Team Providers Care Belt Fixer Name Role Phone Mark MENDOZA, Jennifer Darnell Primary Care Physician Encounter [facility] [place] Date(s): 01/07/21 - 02/06/21 [facility] [address] [place], [place] [address] Allergies, Adverse Reactions, Alerts Substance [...] 07/07/20 13:21:00 EST, Route to Pharmacy Electronically, [facility] #[id number], 155, cm, 07/07/20 13:19:00 EST, Height, 39.6, kg, 06/03/20 17:24:00 EDT, Dry... Start Date: 07/07/20 Stop Date: 01/03/21 Status: Ordered Plavix 75 mg oral tablet 75 mg, 1, tablet, By Mouth, Daily, # 30 tablet, Refills 5, Tot. Refills 5, Maintenance, 12/16/20 14:13:00 EDT, Route to Pharmacy Electronically, [facility] #[id number], 155, cm, 07/07/20 13:19:00 EST, Height, 39.6, [...]
--- OUTSIDE RECORDS SUMMARY | 2024-05-25 15:17 | XMS_ITS | Continuity of Care Document ---
Author Organization [facility] Address [address] [place] [id number]- Care Team Providers Care Analyst Programmer Name Role Phone Mark MENDOZA, Jennifer Darnell Primary Care Physician En[place] [facility] [place] Date(s): 08/25/22 - 09/24/22 [facility] [address] [place], [place] [address] Attending Physician: Admmalcolm, Tatyana Admitting Physician: Admtr, Ar8 Referring Physician: Admtr, Ar8 Allergies, Adverse Reactions, Alerts Substance Reaction Severity Status Tylenol Nauseated Active doxycycline vomiting Active aspirin 1, 2 [...] tablet, Refills 1, Route to Pharmacy Electronically, [facility], 155, cm, 12/03/21 8:45:00 EDT, Height, 39.6, [...] 07/07/20 13:21:00 EST, Route to Pharmacy Electronically, [facility] #[id number], 155, cm, 07/07/20 13:19:00 EST, Height, 39.6, [...] day yissel susannah entered on: 01/26/15 Sex Note * Event Display: Non BH Lab Results Authored Date: [id number] * Elina Lynch: PERFORM, SIGN, VERIFY Event Display: Patient Education/Instruction Authored Date: [id number] [facility] [address] Clinical Summary Person [...] primary care provider, you may find a [facility] provider by calling [facility] [place] [employer] [facility] at [phone]. Patient Education Information Follow-up Details: Patient Education Material: Patient Care team information Care Team Personnel Name: Katelin Mcfadden RN Position: S RN Member Role: Primary Care Nurse Name: Mark MENDOZA , Jennifer Darnell Position: Reference Physician Member Role: PCP Address: Address: [address] [place], [place] - Name: Robert Arechiga RN Position: S RN Member Role: Primary Care Nurse Name: Zoila Segundo RN Position: S RN Member Role: Primary Care Nurse Name: Betty Gomez RN Position: [facility] SN RN Member Role: Primary Care Nurse Care Team Related Persons Name: CONI DEAL Name: HELIO MOORE Address: home [address] [place], [place] Name: CINTHYA LANG Address: home [address] [place], [place] Name: MICK ALARCON Address: home [address] [place], [place] Name: SAIMA PERDUE Address: home [address] [place], [place] Name: SAIMA REYEZ Address: home [address] [place], [place]
--- OUTSIDE RECORDS SUMMARY | 2024-05-25 15:17 | XMS_ITS | Continuity of Care Document ---
Author Organization [facility] Address [address] [place] [address]- Care Team Providers Care Sprinkler Installer Name Role Phone Mark MENDOZA, Jennifer Darnell Primary Care Physician Encounter [facility] [place] Date(s): 03/16/23 - 04/15/23 [facility] [address] [place], [place] [address] Attending Physician: Tatyana Noyola Admitting Physician: Admtr, [...] 11/14/22 7:49:00 EDT, Route to Pharmacy Electronically, [id number], 154.94, cm, 02/18/22 8:56:00 EDT, Height, 43.1, [...] 07/07/20 13:21:00 EST, Route to Pharmacy Electronically, [facility] #[id number], 155, cm, 07/07/20 13:19:00 EST, Height, 39.6, [...] day yissel susannah entered on: 01/26/15 Sex Laboratory * Event Display: Non BH Lab Results Authored Date: [id number] Note * Elina Lynch: PERFORM, SIGN, VERIFY Event Display: Patient Education/Instruction Authored Date: [id number] [facility] [address] Clinical Summary Person [...] primary care provider, you may find a [facility] provider by calling [facility] [employer] [facility] at [phone]. Patient Education Information Follow-up Details: Patient Education Material: Patient Care team information Care Team Personnel Name: Katelin Mcfadden RN Position: S RN Member Role: Primary Care Nurse Name: Jennifer Flores MD Position: Reference Physician Member Role: PCP Address: Address: [address] [place], [place] - Name: Robert Arechiga RN Position: S RN Member Role: Primary Care Nurse Name: Zoila Segundo RN Position: [facility] SN RN Member Role: Primary Care Nurse Name: Betty Gomez RN Position: [facility] SN RN Member Role: Primary Care Nurse Care Team Related Persons Name: CONI DEAL Name: HELIO MOORE Address: home [address] [place], [place] Name: CINTHYA LANG Address: home [address] [place], [place] Name: MICK ALARCON Address: home [address] [place], [place] Name: SAIMA PERDUE Address: home [address] [place], [place] Name: SAIMA REYEZ Address: home [address] [place], [place]
--- OUTSIDE RECORDS SUMMARY | 2024-05-25 15:17 | XMS_ITS | Continuity of Care Document ---
Author Organization [facility] Address [address] [place] [address]- Care Team Providers Care Musical Instrument Maker Or Repairer Name Role Phone Mark MENDOZA, Jennifer Darnell Primary Care Physician [place] [facility] [place](s): 03/09/22 - 07/07/22 [facility] [address] [place], [place] [address] Attending Physician: Uli GARCÍA, Saba [...] tablet, Refills 1, Route to Pharmacy Electronically, [facility], 155, cm, 12/03/21 8:45:00 EDT, Height, 39.6, [...] 07/07/20 13:21:00 EST, Route to Pharmacy Electronically, [facility] #[id number], 155, cm, 07/07/20 13:19:00 EST, Height, 39.6, [...] a schedule II opioid drug. Start Date: 6/23/22 Status: Ordered Problem List Condition Confirmation Course [...] Physician Member Role: PCP Address: Address: [address] [place] [id number]- Name: Robert Arechiga RN Position: [facility] RN Member Role: Primary Care Nurse Name: Zoila Segundo RN Position: [facility] RN Member Role: Primary Care Nurse Name: Betty Gomez RN Position: [facility] SN RN Member Role: Primary Care Nurse Care Team Related Persons Name: CONI DEAL Name: HELIO MOORE Address: home [address] [place], [place] Name: CINTHYA LANG Address: home [address] [place], [place] Name: MICK ALARCON Address: home [address] [place], [place] Name: SAIMA PERDUE Address: home [address] [place], [place] Name: SAIMA REYEZ Address: home [address] [place], [place]
--- OUTSIDE RECORDS SUMMARY | 2024-05-25 15:17 | XMS_ITS | Continuity of Care Document ---
Author Organization [facility] Address [address] [place] [address]- Care Team Providers Care Director Of Corporate Strategy Name Role Phone Mark MENDOZA, Jennifer Darnell Primary Care Physician En[place] [facility] [place] Date(s): 02/20/24 - 03/21/24 [facility] [address] [place] [id number] Allergies, Adverse Reactions, Alerts Substance [...] 1 Refills, Maintenance, 01/29/24 14:24:00 EDT, Cream, [facility]/pharmacy #[id number], Partial fill upon patient request if the prescription is for a schedul... Start Date: 01/29/24 Status: Ordered Nicoderm C-Q Clear 21 mg/24 hr transdermal film, extended release 1 patch, Topically, Daily, # 30 patch, 0 Refills, Maintenance, 02/25/24 9:47:00 EDT, Patch, [facility], Partial fill upon patient request if the prescription is for a schedule II opioiddrug., 150, cm, 02/25/24 8:49:00 EDT, Height, 32.5,... Start Date: 02/25/24 Status: Ordered olanzapine 2.5 mg oral tablet 1, tablet, By Mouth, Daily at bedtime, DIRECTED., # 18 tablet, Refills 0, Maintenance, 02/19/24 8:02:00 EDT, Route to Pharmacy Electronically, [facility] [id number], 150.8, cm, 02/13/24 15:23:00 EDT, Height, 33.6, kg, 02/13/24 15:23:00 EDT, Dry Weight Start Date: 02/19/24 Status: Ordered ondansetron 8 mg oral tablet 1 tablet = 8 mg, By Mouth, Every 8 hours, PRN as needed for nausea/vomiting, # 30 tablet, 1 Refills, Maintenance, 01/29/24 14:24:00 EDT, Tablet, [facility]/pharmacy #[id number], Partial fill upon patient request if the prescription is for a schedule II opioid drug... Start Date: 01/29/24 Status: Ordered oxyCODONE 5 mg/5 mL oral solution 5 mL = 5 mg, By Mouth, Every 8 hours, # 105 mL, 0 Refills, Maintenance, 02/20/24 21:30:00 EDT, Solution, [facility], Partial fill upon [...] tablet, 1 Refills, Maintenance, 01/29/24 14:24:00 EDT, [facility]/pharmacy #2339, Partial fill upon patient requestif the prescription is for a schedule II opioid sheldon... Start Date: 01/29/24 Status: Ordered senna 8.8 mg/5 mL oral syrup 10 mL = 17.6 mg, By Mouth, Daily at bedtime, PRN for constipation, # 240 mL, 0 Refills, Maintenance, 02/13/24 15:55:00 EDT, Syrup, [facility]/pharmacy #[id number], Partial fill upon patient [...] 06/24/24 9:41:00 EST, 02/25/24 9:41:00 EDT, Tablet, [facility], Partial fill upon [...] 0 Refills, Maintenance, 03/15/24 11:40:00 EDT, Tablet, [facility]/pharmacy #2339, Partial fill upon patient [...] wants NRT during admission No entered on: 03/19/24 Sex Patient Care team information Care Team Personnel Name: Caitlyn Orellana RN Position: [facility] RN Member Role: Primary Care Nurse Name: Jazlyn Marquez RN Position: [facility] RN Supv Member Role: Primary Care Nurse Name: Katelin Mcfadden RN Position: [facility] Nurse Member Role: Primary Care Nurse Name: Jude Mejia Position: S RN Supv Member Role: Primary Care Nurse Name: Jennifer Flores MD Position: Reference Physician Member Role: PCP Address: Address: [address] [place], [place] - Name: Kemi Carpenter RN Position: [facility] RN Member Role: Primary Care Nurse Name: Zaida Gaspar RN Position: [facility] RN Member Role: Primary Care Nurse Name: Kemi Henry RN Position: [facility] Onco RN Member Role: Primary Care Nurse Name: Robert Arechiga RN Position: [facility] RN Member Role: Primary Care Nurse Name: Sienna Merida RN Position: [facility] Onco RN Member Role: Primary Care Nurse Name: Baltazar Villar RN Position: [facility] RN Member Role: Primary Care Nurse Name: Zoila Segundo RN Position: [facility] AMB Nurse Member Role: Primary Care Nurse Name: Izabel Cruz RN Position: [facility] RN Member Role: Primary Care Nurse Name: Betty Gomez RN Position: [facility] SN RN Member Role: Primary Care Nurse Name: Katy Jay RN Position: [facility] RN Member Role: Primary Care Nurse Name: Sarah Hammonds RN Position: [facility] Onco RN Member Role: Primary Care Nurse Name: Cabrera Peraza RN Position: [facility] RN Member Role: Primary Care Nurse Name: Garfield Chow RN Position: [facility] RN Member Role: Primary Care Nurse Name: Mitzi Blue RN Position: [facility] Onco RN Member Role: Primary Care Nurse Name: Ananda Pruitt RN Position: [facility] RN Member Role: Primary Care Nurse Name: Radha Gunn RN Position: [facility] RN Member Role: Primary Care Nurse Care Team Related Persons Name: CONI DEAL Name: REGI LAZAR Name: HELIO MOORE Address: home [address] [place], [place] Name: CINTHYA LANG Address: home [address] [place], [place] Name: SAIMA PERDUE Address: home [address] [place], [place] Name: SAIMA REYEZ Address: home [address] [place], [place]
--- NOTE | 2024-05-25 16:07 | PC.NURSE ---
Pt. is verbalizing and conversing in full sentences. Passed swallow evaluation. States that she suddenly can't feel her right foot and states that this is new for her. VASILE Castillo aware.
[2024-05-25 16:49] LABS: Appearance Urine Clear; Color Urine Yellow; Glucose Urine UA Negative (Negative); Leukocyte Esterase Urine Negative (Negative); Nitrite Urine Negative (Negative); PH 7.5 (5.0-9.0); Specific Gravity - Urine >= 1.030 (1.005-1.025); Urine Blood Negative (Negative); Urine Ketones Negative (Negative); Urine Protein Negative (Neg-Trace)
[2024-05-25 16:51] LABS: Bacteria Urine None Seen (None Seen); Hyaline Casts Urine 0-2 /LPF (0-2); RBC Urine 0-2 /HPF (0-2); WBC Urine 0-5 /HPF (0-5)
--- NOTE | 2024-05-25 17:27 | PM.IMHP ---
History of Present Illness Date of Service: 05/25/24 Chief Complaint: aphasia + L sided weakness 64yo woman with recent embolis CVA with residual R-sided weakness and word-finding difficulties, locally advanced laryngeal carcinoma [diagnosed in October 2023] s/p radiation/chemotherapy, malnutrition s/p G-tube but no longer using this, pulmonary aspergillosis treated with voriconazole, COPD, tobacco abuse, PAD s/p fem-fem bypass. [place] [facility] [place] with AMS and found to have acute/subacute CVA. She had bihemispheric infarcts; subacute in the right parietal region (inferior division of the MCA) and acute left in the posterior periventricular region. (CTA with L cervical ICA proximal occlusion of undetermined age and intracranial collateralization, since siphon ICA is filled by ophthalmic artery and left A1 is open.) Therapeutic anticoagulation was recommended and ultimately she was discharged home on enoxaparin. Unfortunately, she had difficulty administering Lovenox shots, flushing her G-tube, or taking care of herself in general and was directly re[place]ad[place] [facility] [place] from the Oncology clinic when she was noted to have a flea infestation. She was transitioned to warfarin and discharged home on 03/15/24. She was admitted a 3rd time [place] [facility] [place] after falling and sustaining an L3 vertebral fracture. Neurosurgery was consulted and recommended she wear a soft TLSO brace for 4-6 weeks. Short-term rehabilitation was strongly recommended but she adamantly refused. She also refused VNA services. She lives alone and gets around the house by grabbing onto the egan and furniture. She has a wheelchair when she leaves the house, which is rare. She returned to [place] [facility] [place]/23/24 with inability to get out of bed and was noted to not be wearing her brace nor taking her warfarin. Today, she called a neighbor around 1300 due to inability to move and was noted to be aphasic. She has chronic R-sided weakness but NIHSS was 19. However, in the CT scan, aphasia resolved and she had more strength in the left leg. Her speech is now normal. Currently her major complaints are of hunger, L foot pain, and R foot numbness. Neurology was called from the ED and recommended aspirin and admission. However, the patient refuses to take aspirin, saying that it makes her vomit. She's been on clopidgrel in the past and got one 75 mg dose. She was also noted to be hypotensive on arrival, with BP 85/54. However, this resolved on its own and BP is currently 102/61. She denies lightheadedness, chest pain, or palpitations. CT of the brain showed posterior R parieto-occipital encephalomalacia corresponding to a prior posterior R MCA stroke. CTA of the head/neck showed L ICA occlusion from the bulb to the terminus. There is an irregular thick-walled nodule at the R apex of the lung. She is no longer on voriconazole. Review of Systems Review of Systems: Yes all other systems are reviewed and are negative [facility] Medical History Pulmonary nodule 1 cm or greater in diameter Squamous cell carcinoma of epiglottis Weight loss, unintentional Skin lesion of back Immunization declined Fracture of proximal end of fibula Contusion of leg, right Vaccination declined by patient Cervical lymphadenopathy Carotid stenosis, right Microcytic hypochromic anemia Left cervical lymphadenopathy Bilateral carotid bruits Smoker Idiopathic hypercalciuria Thyroid nodule Hx of angiography Vitamin D deficiency Goiter History of tachycardia GERD (gastroesophageal reflux disease) Gastritis Duodenitis Pyloric ulcer History of alcohol abuse Myopia of both eyes Papanicolaou smear declined Mammogram declined Smoker unmotivated to quit Restless leg syndrome Aortoiliac occlusive disease Tubular adenoma of colon Chronic Helicobacter pylori gastritis COPD (chronic obstructive pulmonary disease) Fibromyalgia Peripheral vascular disease Osteoporosis Family History Father Substance use disorder Mother Osteoporosis Substance use disorder Brother Substance use disorder Sister Substance use disorder Lung cancer Sister Substance use disorder Brother Substance use disorder Surgical History Hx of coronary angiogram History of removal of skin mole Hx of colonoscopy History of surgery on lower extremity Hx of foot surgery History of surgical removal of lesion (~10/28/21) History of lung biopsy (~04/2021) History of exploratory thoracotomy (~04/2018) History of tonsillectomy History of endarterectomy (~05/2020) History of ankle surgery (~11/2011) History of myringotomy History of appendectomy History of tubal ligation Social History Household Members: None Housing: House Housing Other:: mobile home Are you a primary manager wound care to a significant other at home: No Do you presently have visiting nurse or other home services: Yes ([employer] 1 x week) Unable to assess alcohol history related to: Unknown Alcohol intake: former Patient Tobacco Use Status: Current everyday Tobacco user Tobacco use type: Cigarette Cigarette Packs Per Day: 1 Years Smoked: 50+ Smoked in Last 30 Days: Yes e-Cigarette/Vaping Use: Never Used Second Hand Smoke Exposure: Yes Use of substances other than those prescribed or required for medical reasons: No Advance Directives: Yes Advance Directives on File: Yes Advance Directives Date on File: 12/12/23 Do you have a plan to hurt others: No Plan service: No Current occupational status: disabled Current occupation: rt handed Current occupational exposures/hazards: No Cognitive needs: No Hearing needs: No Vision needs: Yes Meds Allergies Allergy/AdvReac Type Severity Reaction Status Date / Time aspirin AdvReac Mild Vomiting Verified 05/25/24 13:59 Active Medications: Current Medications Acetaminophen (Acetaminophen 325 Mg Tablet) 650 mg PO Q6H PRN PRN Reason: Pain, Mild (Pain Scale 1-3), fever or headache Atorvastatin Calcium (Atorvastatin Calcium 80 Mg Tablet) 80 mg PO BEDTIME BILL Calcium Carbonate (Calcium Carbonate 750 Mg Tab.Chew) 750 mg PO Q4H PRN PRN Reason: Heartburn Clopidogrel Bisulfate (Clopidogrel Bisulfate 75 Mg Tablet) 75 mg PO DAILY BILL Magnesium Hydroxide (Milk Of Magnesia 30 Ml Oral.Susp) 30 ml PO DAILY PRN PRN Reason: Constipation Melatonin (Melatonin 3 Mg Tablet) 6 mg PO BEDTIME PRN PRN Reason: Insomnia Ondansetron HCl (Ondansetron Hcl 4 Mg/2 Ml Vial) 4 mg IVPUSH Q4H PRN PRN Reason: Nausea and Vomiting Home Medications ?Medication ?Instructions ?Recorded ?Confirmed ?Last Taken ?Type oxycodone 5 mg/5 mL oral solution 5 mg PO Q8H PRN severe pain 05/25/24 05/25/24 Unknown History pantoprazole 40 mg tablet,delayed 40 mg PO DAILY PRN Acid Reflux 05/25/24 05/25/24 Unknown History release pramipexole 0.125 mg tablet 0.125 mg PO BEDTIME PRN restless 05/25/24 05/25/24 Unknown History leg syndrome ropinirole 1 mg tablet 1 mg PO QPM 05/25/24 05/25/24 Unknown History Physical Exam Vital Signs and Narrative: Vital Signs: Last Vital Signs Temp 98.6 F 05/25/24 15:20 Pulse 74 05/25/24 15:20 Resp 20 05/25/24 15:20 BP 119/60 05/25/24 15:20 Pulse Ox 95 05/25/24 15:20 O2 Del Method Room Air 05/25/24 15:20 BMI result Body Mass Index 15.2 Gen: in no acute distress, thin, cachectic HEENT: sclera anicteric, moist mucus membranes Neck: supple, R subclavian port Lungs: clear to auscultation bilaterally Heart: regular rate and rhythm, no murmurs Abd: soft, non-tender, non-distended Ext: no edema Skin: warm/well-perfused Neuro: alert and oriented x3, no facial droop, R hemiparesis, LUE and LLE both approx 3/5 strength, normal speech Psych: appropriate affect Results Labs 05/25/24 13:46 05/25/24 13:47 Labs: Laboratory Results - last 24 hr 05/25/24 05/25/24 05/25/24 13:46 13:47 14:11 MCV 81.7 MCH 24.9 L MCHC 30.5 L RDW 20.5 H Plt Count 229 D MPV 8.6 L Immature Gran % (Auto) 0.4 Neut % (Auto) 70.4 Lymph % (Auto) 14.6 L [place] % (Auto) 11.4 H Eos % (Auto) 2.6 Baso % (Auto) 0.6 Lymph # (Auto) 0.7 L [place] # (Auto) 0.6 Eos # (Auto) 0.1 Baso # (Auto) 0.0 Abs Immat Gran (auto) 0.02 Absolute Neuts (auto) 3.6 Absolute Nucleated RBC 0.000 Nucleated RBC % (auto) 0.0 PT 10.3 L INR 0.9 APTT 30.4 Anion Gap 12 Estim Creat Clear Calc 57.1 Estimated GFR > 60 POC Glucose 94 Random Glucose 91 Calcium 9.2 D Troponin I High Sens < 2.7 Triglycerides 97 Cholesterol 194 LDL Cholesterol, Calc 121 H HDL Cholesterol 54 Urine Color Urine Appearance Urine pH Ur Specific [place] Urine Protein Urine Glucose (UA) Urine Ketones Urine Blood Urine Nitrite Ur Leukocyte Esterase Urine RBC Urine WBC Ur Squamous Epith Cells Urine Bacteria Hyaline Casts Ethyl Alcohol < 10 05/25/24 16:41 MCV MCH MCHC RDW Plt Count MPV Immature Gran % (Auto) Neut % (Auto) Lymph % (Auto) [place] % (Auto) Eos % (Auto) Baso % (Auto) Lymph # (Auto) [place] # (Auto) Eos # (Auto) Baso # (Auto) Abs Immat Gran (auto) Absolute Neuts (auto) Absolute Nucleated RBC Nucleated RBC % (auto) PT INR APTT Anion Gap Estim Creat Clear Calc Estimated GFR POC Glucose Random Glucose Calcium Troponin I High Sens Triglycerides Cholesterol LDL Cholesterol, Calc HDL Cholesterol Urine Color Yellow Urine Appearance Clear Urine pH 7.5 Ur Specific [place] >= 1.030 H Urine Protein Negative Urine Glucose (UA) Negative Urine Ketones Negative Urine Blood Negative Urine Nitrite Negative Ur Leukocyte Esterase Negative Urine RBC 0-2 Urine WBC 0-5 Ur Squamous Epith Cells 3-5 Urine Bacteria None Seen Hyaline Casts 0-2 Ethyl Alcohol Imaging Radiologist's Impressions: Impressions Chest X-Ray 05/25/24 13:30 IMPRESSION: 1. Bronchial wall thickening suggesting small airways disease. 2. Nodular opacity in the left lower lung field could represent a nipple shadow. Recommend repeating the exam with nipple markers. Electronically signed by: Scout Lopez MD 05/25/2024 02:[address] 05/25/24 13:41 IMPRESSION: 1. Deep white matter and periventricular hypoattenuation, nonspecific; most likely sequela of chronic microvascular angiopathy ischemia. 2. There is an area of encephalomalacia in the posterior right parieto-occipital region likely sequela of an infarct in the distribution of the posterior segment of the right middle cerebral artery indeterminant age, no associated intracranial hemorrhage or mass effect. (Referring physician staff is being called, by physician staff assistance, to be alerted of the above critical findings and recommendations.) 05/25/2024 1:16 PM CDT Electronically signed by: Tr Jurado MD 05/25/2024 02:17 PM EDT RP Head/Neck CTA 05/25/24 13:46 IMPRESSION: 1. Occlusion of the left internal carotid artery from the carotid bulb to the carotid terminus. 2. No significant stenosis in the right internal carotid artery. 3. Patent [place] of [place]. 4. Improvement of the irregular mass involving the epiglottis that was visualized on the prior exam. 5. Redemonstration of the linear irregular thick-walled consolidation/nodule at the right apex. Emergent results were discussed with Swathi Noonan PROJECT MGR at 345pm on 05/25/24. Electronically signed by: Roslyn King MD 05/25/2024 03:55 PM EDT RP Assessment and Plan (1) TIA (transient ischemic attack): Status: Acute Plan 64yo woman with recent embolis CVA with residual R-sided weakness and word-finding difficulties, 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 Multiple recent [place] [facility] [place] acute/subacute CVA deemed to be embolic, inadequate self-care, and L3 vertebral fracture. She is unable to give herself Lovenox and is noncompliant with warfarin. Presenting after aphasic episode and L-sided weakness, out of the TNK window. Aphasia resolved but L-sided weakness remains. TIA prior embolic CVA - Admit to Telemetry with cardiac monitoring. Neurology, PT/OT/EXIT BOOTH AGENT consultations. She got 1 dose of Plavix in the ED and given embolic history, will give therapeutic Lovenox for now. High-intensity statin. Hypercoagulability attributed to CA - Unable to give herself Lovenox injections and has refused warfarin because she doesn't want INR checks. Suspect we can use a DOAC eventually such as Eliquis but will consult Heme-Onc. Hypotension - Resolved; monitor. Not on antihypertensives. Pulmonary aspergillosis - Has a pulmonary nodule that has been biopsied previously and voriconazole has been recommended. Unclear duration of therapy; will reach out to ID. L3 vertebral facture - Will place TLSO brace and to wear anytime HOB >30 degrees. Needs Neurosurgery follow-up in 4 weeks. COPD not in acute flare - Continue ICS/LABA + prn TONIA. Severe protein-calorie malnutrition - Supplements VTE ppx - On therapeutic Lovenox. Dispo/FTT - CM consult. It is clear she is unable to live on her own at home and will need SNF placement. Code status - Full code. I anticipate that the patient will stay at least 2 midnights as an inpatient in the hospital due to the above reasons. It is neither reasonable nor safe to care for them in a less acute setting. Quality Stroke Does the patient have a stroke diagnosis?: Yes Reason for No Anti-thrombotic by Day Two: N/A - Med Ordered VTE Prior VTE?: No VTE Risk Level:: Medical - moderate - high VTE Device Contraindication: N/A - Device Ordered VTE Drug Contraindication: N/A - Med Ordered
[2024-05-25] MEDS: Clopidogrel Bisulfate 75 MG TABLET PO (17:53)
--- NOTE | 2024-05-25 18:12 | PHA.MEDREC ---
Addendum entered by Ramiro Pina RPh 05/25/24 18:20: Reviewed by [facility]. Original Note: Pharmacy Consult ? Medication Reconciliation Pharmacy has completed the medication reconciliation. Spoke with patient to confirm medications. She is no longer taking warfarin, voriconazole, or any vitamins/supplements. She is not using anything for constipation or nausea. She only uses her inhalers, pantoprazole prn, ropinirole, and pramipexole prn if the ropinirole is ineffective. She only took the symbicort and ventolin today.
[2024-05-25] MEDS: rOPINIRole HCL 1 MG TABLET PO (22:14)
[2024-05-25] MEDS: Atorvastatin Calcium 80 MG TABLET PO (22:14)
--- NOTE | 2024-05-25 22:29 | PC.NURSE ---
patient requesting oxycodone, messaged provider, will monitor
[2024-05-25] MEDS: oxyCODONE HCl Immed Release 5 MG TABLET PO (22:35)
[2024-05-26] VITALS (7 sets, daily range): BP systolic 118–181; BP diastolic 59–94; PULSE 56–85; RESP 12–18; TEMP 36.1–36.9; O2SAT 93–98; BMI 14.7
[2024-05-26 04:36] LABS: Hematocrit 36.3 % (37.0-47.0); Hemoglobin 10.8 g/dl (12.0-16.0); Mean Corpuscular HGB Conc 29.8 g/dl (31.0-35.0); Mean Corpuscular Hemoglobin 24.7 pg (27.0-33.0); Mean Corpuscular Volume 83.1 fL (80.0-98.0); Mean Platelet Volume 8.8 fL (9.4-12.3); Platelet Count 204 X10*3/uL (160-400); Red Blood Count 4.37 X10*6/uL (4.20-5.50); Red Cell Distribution Width 20.3 % (11.0-16.0); White Blood Count 5.1 X10*3/uL (4.8-10.8)
[2024-05-26 04:55] LABS: Anion Gap 13 (12-20)
[2024-05-26 05:24] LABS: Estimated Average Glucose 103 mg/dL; Hemoglobin A1C 87.4052 umol/L; Hemoglobin A1c % 5.2 % (<6.0); Total Hemoglobin (HGBA1C) 2587.5603 umol/L
[2024-05-26 05:34] LABS: Blood Urea Nitrogen 11 mg/dL (9-16); Calcium 9.2 mg/dL (8.4-10.2); Carbon Dioxide 21 mmol/L (22-29); Chloride 107 mmol/L (96-108); Creatinine Clr Calc Pharmacy 54.3; Estimated Glomerular Filt Rate > 60; Glucose Random 83 mg/dL (60-115); Potassium 4.9 mmol/L (3.3-5.1); Sodium 139 mmol/L (135-145)
--- NOTE | 2024-05-26 08:20 | PC.NURSE ---
patient sitting up in bed respirations equal and unlabored, tube test technician at bedside assisting patient in eating breakfast due to stroke deficits, patient neuros intact. VSS
[2024-05-26 09:36] LABS: Magnesium 2.1 mg/dL (1.6-2.6); Phosphorus 4.3 mg/dL (2.7-4.5)
--- NOTE | 2024-05-26 10:03 | P.CNNE_ITS ---
History of Present Illness Data of Consult Service Date: 05/26/24 Primary Care Provider: Jennifer Flores MD HPI Reason for consult: Stroke 64 years old woman with complicated medical history including epiglottic cancer and recent diagnosis of left internal carotid artery occlusion and right parieto-occipital infarct. She has been admitted to hospital recently and was advised to have anticoagulation. Initially it was given as injectable, which she could not do and then it was changed to warfarin. She has been living alone having significant difficulty with driving but refusing to have help. She came to hospital after she could not ambulate well or speak. In emergency room her language function improved and due to significant delay in onset of symptoms treatment such as TNK was not considered. No treatable lesion was noted on CTA and she was admitted. There was no sign of seizure. Review of Systems 2 Review of Systems: Significant difficulty with day-to-day ambulation and activity PMFSH Past Medical History Medical History Pulmonary nodule 1 cm or greater in diameter Squamous cell carcinoma of epiglottis Weight loss, unintentional Skin lesion of back Immunization declined Fracture of proximal end of fibula Contusion of leg, right Vaccination declined by patient Cervical lymphadenopathy Carotid stenosis, right Microcytic hypochromic anemia Left cervical lymphadenopathy Bilateral carotid bruits Smoker Idiopathic hypercalciuria Thyroid nodule Hx of angiography Vitamin D deficiency Goiter History of tachycardia GERD (gastroesophageal reflux disease) Gastritis Duodenitis Pyloric ulcer History of alcohol abuse Myopia of both eyes Papanicolaou smear declined Mammogram declined Smoker unmotivated to quit Restless leg syndrome Aortoiliac occlusive disease Tubular adenoma of colon Chronic Helicobacter pylori gastritis COPD (chronic obstructive pulmonary disease) Fibromyalgia Peripheral vascular disease Osteoporosis Family History Family History Father Substance use disorder Mother Osteoporosis Substance use disorder Brother Substance use disorder Sister Substance use disorder Lung cancer Sister Substance use disorder Brother Substance use disorder Surgical History Surgical History Hx of coronary angiogram History of removal of skin mole Hx of colonoscopy History of surgery on lower extremity Hx of foot surgery History of surgical removal of lesion (~10/28/21) History of lung biopsy (~04/2021) History of exploratory thoracotomy (~04/2018) History of tonsillectomy History of endarterectomy (~05/2020) History of ankle surgery (~11/2011) History of myringotomy History of appendectomy History of tubal ligation Social History Social History Household Members: None Housing: House Housing Other:: mobile home Are you a primary caregiver services home to a significant other at home: No Do you presently have visiting nurse or other home services: Yes (ACCOUNT CLASSIFICATION CLERK 1 x week) Unable to assess alcohol history related to: Unknown Alcohol intake: former Patient Tobacco Use Status: Current everyday Tobacco user Tobacco use type: Cigarette Cigarette Packs Per Day: 1 Years Smoked: 50+ Smoked in Last 30 Days: Yes e-Cigarette/Vaping Use: Never Used Second Hand Smoke Exposure: Yes Use of substances other than those prescribed or required for medical reasons: No Advance Directives: Yes Advance Directives on File: Yes Advance Directives Date on File: 12/12/23 Do you have a plan to hurt others: No Plan service: No Current occupational status: disabled Current occupation: rt handed Current occupational exposures/hazards: No Cognitive needs: No Hearing needs: No Vision needs: Yes Meds Allergies Allergy/AdvReac Type Severity Reaction Status Date / Time aspirin AdvReac Mild Vomiting Verified 05/25/24 13:59 Active Medications: Current Medications Acetaminophen (Acetaminophen 325 Mg Tablet) 650 mg PO Q6H PRN PRN Reason: Pain, Mild (Pain Scale 1-3), fever or headache Albuterol Sulfate (Albuterol Sulfate (0.042%) 1.25 Mg/3 Ml Vial.Neb) 2.5 mg INHALE Q4H PRN PRN Reason: shortness of breath or wheezing Albuterol Sulfate (Albuterol Sulfate 90 Mcg 8 Gm Inhaler) 2 puff INHALE QID PRN PRN Reason: for wheezing Atorvastatin Calcium (Atorvastatin Calcium 80 Mg Tablet) 80 mg PO BEDTIME [facility] Last Admin: 05/25/24 22:14 Dose: 80 mg Calcium Carbonate (Calcium Carbonate 750 Mg Tab.Chew) 750 mg PO Q4H PRN PRN Reason: Heartburn Enoxaparin Sodium (Enoxaparin Sodium 40 Mg/0.4 Ml Syringe) 40 mg SUBCUT Q12H [facility] Last Admin: 05/26/24 06:12 Dose: Not Given Fluticasone/Vilanterol (Fluticasone/Vilanterol 200/25 Blst.W.Dev) 1 puff INHALE RDAILY [facility] Last Admin: 05/26/24 09:39 Dose: Not Given Magnesium Hydroxide (Milk Of Magnesia 30 Ml Oral.Susp) 30 ml PO DAILY PRN PRN Reason: Constipation Melatonin (Melatonin 3 Mg Tablet) 6 mg PO BEDTIME PRN PRN Reason: Insomnia Omeprazole (Omeprazole 20 Mg Capsule.Dr) 20 mg PO DAILY PRN PRN Reason: Acid Reflux Ondansetron HCl (Ondansetron Hcl 4 Mg/2 Ml Vial) 4 mg IVPUSH Q4H PRN PRN Reason: Nausea and Vomiting Pramipexole Dihydrochloride (Pramipexole Di-Hcl 0.125 Mg Tablet) 0.125 mg PO BEDTIME PRN PRN Reason: restless leg syndrome Ropinirole HCl (Ropinirole Hcl 1 Mg Tablet) 1 mg PO BEDTIME [facility] Last Admin: 05/25/24 22:14 Dose: 1 mg Home Medications ?Medication ?Instructions ?Recorded ?Confirmed ?Last Taken ?Type oxycodone 5 mg/5 mL oral solution 5 mg PO Q8H PRN severe pain 05/25/24 05/25/24 Unknown History pantoprazole 40 mg tablet,delayed 40 mg PO DAILY PRN Acid Reflux 05/25/24 05/25/24 Unknown History release pramipexole 0.125 mg tablet 0.125 mg PO BEDTIME PRN restless 05/25/24 05/25/24 Unknown History leg syndrome ropinirole 1 mg tablet 1 mg PO BEDTIME 05/25/24 05/25/24 Unknown History Physical Exam 2 Vital Signs: Vital Signs: Last Vital Signs Temp 98.2 F 05/26/24 08:18 Pulse 84 05/26/24 08:18 Resp 15 05/26/24 08:18 BP 181/94 H 05/26/24 08:18 Pulse Ox 93 05/26/24 08:18 O2 Del Method Room Air 05/26/24 08:18 BMI result Body Mass Index 15.2 Neuro: Other: She is alert and awake with normal spontaneity of speech fluency comprehension and flat affect. Visual field revealed left hemianopsia. Face is symmetrical. She has significant arthritic changes in that limits her ability to cooperative with exam. She could not lift arms up and could barely wiggle her fingers. There was diffuse muscle atrophy with bilateral extensor plantars. Speech was hoarse. Results Labs 05/26/24 04:32 05/26/24 04:32 Labs: Short CBC 05/25/24 05/26/24 Range/Units 13:46 04:32 WBC 5.1 5.1 (4.8-10.8) X10*3/uL Hgb 10.5 L 10.8 L (12.0-16.0) g/dl Hct 34.4 L 36.3 L (37.0-47.0) % Plt Count 229 D 204 (160-400) X10*3/uL BMP 05/25/24 05/26/24 13:47 04:32 Sodium 141 139 Potassium 3.6 D 4.9 D Chloride 108 107 Carbon Dioxide 25 21 L BUN 13 11 Creatinine 0.59 0.62 Calcium 9.2 D 9.2 Urine 05/25/24 Range/Units 16:41 Urine Color Yellow Urine Appearance Clear Urine pH 7.5 (5.0-9.0) Ur Specific [place] >= 1.030 H (1.005-1.025) Urine Protein Negative (Neg-Trace) mg/dL Urine Glucose (UA) Negative (Negative) mg/dL MRI of brain revealed bilateral embolic looking ischemic acute infarctions on top of previous vascular injury. Assessment and Plan (1) Multiple cerebral infarctions: Status: Acute 64 years old woman with complicated medical history and significant disability related to strokes and arthritis. She has not been able to take care of herself, including taking medicines. She has been prescribed warfarin but her INR was not high suggesting that she was unable to take it. Like last time, she has another set of bilateral embolic looking ischemic infarctions probably related to cardiac source of embolism. Her left internal carotid artery is occluded but I do not think that is the cause of her problems. Mainstay of management is anticoagulation with something like Eliquis and placement in a detention. (2) Embolic cerebral infarction: Qualifiers: Precerebral and cerebral artery: middle cerebral artery Laterality of affected vessel: bilateral Qualified Code(s): I63.413 - Cerebral infarction due to embolism of bilateral middle cerebral arteries Status: Acute Procedures Date of Service Date of Service: 05/26/24
--- NOTE | 2024-05-26 11:05 | PC.NURSE ---
patient found to be incontinent of urine despite purewick placement. patient pads and linens changed, cleaned up. patient repositioned in bed, respirations equal an unlabored, VSS, neuros intact, alert and oriented. purewick positioned in place better with amando pad.
[2024-05-26] MEDS: oxyCODONE HCl Immed Release 5 MG TABLET PO ×2 (12:31→21:26)
--- NOTE | 2024-05-26 12:47 | P.PNIM_ITS ---
Subjective Subjective Date of Service: 05/26/24 Interval History: aphasia resolved L-sided weakness no cough MRI shows multiple small strokes Review of Systems Review of Systems: Yes all other systems are reviewed and are negative Physical Exam 2 Vital Signs: Vital Signs: Last Vital Signs Temp 98.4 F 05/26/24 11:00 Pulse 67 05/26/24 11:00 Resp 12 05/26/24 11:00 BP 178/73 H 05/26/24 11:00 Pulse Ox 97 05/26/24 11:00 O2 Del Method Room Air 05/26/24 11:00 BMI result Body Mass Index 15.2 Gen: in no acute distress, thin, cachectic HEENT: sclera anicteric, moist mucus membranes Neck: supple, R subclavian port Lungs: clear to auscultation bilaterally Heart: regular rate and rhythm, no murmurs Abd: soft, non-tender, non-distended, PEG tube Ext: no edema Skin: warm/well-perfused Neuro: alert and oriented x3, no facial droop, R hemiparesis, LUE and LLE both 3/5 strength, normal speech Psych: appropriate affect Objective Data Active Medications Acetaminophen (Acetaminophen 325 Mg Tablet) 650 mg PO Q6H PRN PRN Reason: Pain, Mild (Pain Scale 1-3), fever or headache Albuterol Sulfate (Albuterol Sulfate (0.042%) 1.25 Mg/3 Ml Vial.Neb) 2.5 mg INHALE Q4H PRN PRN Reason: shortness of breath or wheezing Albuterol Sulfate (Albuterol Sulfate 90 Mcg 8 Gm Inhaler) 2 puff INHALE QID PRN PRN Reason: for wheezing Apixaban (Apixaban 5 Mg Tablet) 5 mg PO BID [facility] Atorvastatin Calcium (Atorvastatin Calcium 80 Mg Tablet) 80 mg PO BEDTIME [facility] Last Admin: 05/25/24 22:14 Dose: 80 mg Documented By: SHEYLA Calcium Carbonate (Calcium Carbonate 750 Mg Tab.Chew) 750 mg PO Q4H PRN PRN Reason: Heartburn Fluticasone/Vilanterol (Fluticasone/Vilanterol 200/25 Blst.W.Dev) 1 puff INHALE RDAILY [facility] Last Admin: 05/26/24 09:39 Dose: Not Given Documented By: MARY Non-Admin Reason: Med Not Available Magnesium Hydroxide (Milk Of Magnesia 30 Ml Oral.Susp) 30 ml PO DAILY PRN PRN Reason: Constipation Melatonin (Melatonin 3 Mg Tablet) 6 mg PO BEDTIME PRN PRN Reason: Insomnia Omeprazole (Omeprazole 20 Mg Capsule.Dr) 20 mg PO DAILY PRN PRN Reason: Acid Reflux Ondansetron HCl (Ondansetron Hcl 4 Mg/2 Ml Vial) 4 mg IVPUSH Q4H PRN PRN Reason: Nausea and Vomiting Oxycodone HCl (Oxycodone Hcl Immed Release 5 Mg Tablet) 5 mg PO Q6H PRN PRN Reason: Pain, Severe (Pain Scale 7-10) Last Admin: 05/26/24 12:31 Dose: 5 mg Documented By: MARY Pramipexole Dihydrochloride (Pramipexole Di-Hcl 0.125 Mg Tablet) 0.125 mg PO BEDTIME PRN PRN Reason: restless leg syndrome Ropinirole HCl (Ropinirole Hcl 1 Mg Tablet) 1 mg PO BEDTIME BILL Last Admin: 05/25/24 22:14 Dose: 1 mg Documented By: SHEYLA Labs 05/26/24 04:32 05/26/24 04:32 Labs: Laboratory Results - last 24 hr 05/25/24 05/25/24 05/25/24 13:46 13:47 14:11 MCV 81.7 MCH 24.9 L MCHC 30.5 L RDW 20.5 H Plt Count 229 D MPV 8.6 L Immature Gran % (Auto) 0.4 Neut % (Auto) 70.4 Lymph % (Auto) 14.6 L [place] % (Auto) 11.4 H Eos % (Auto) 2.6 Baso % (Auto) 0.6 Lymph # (Auto) 0.7 L [place] # (Auto) 0.6 Eos # (Auto) 0.1 Baso # (Auto) 0.0 Abs Immat Gran (auto) 0.02 Absolute Neuts (auto) 3.6 Absolute Nucleated RBC 0.000 Nucleated RBC % (auto) 0.0 PT 10.3 L INR 0.9 APTT 30.4 Anion Gap 12 Estim Creat Clear Calc 57.1 Estimated GFR > 60 POC Glucose 94 Random Glucose 91 Estimat Average Glucose 103 Hemoglobin A1c % 5.2 Calcium 9.2 D Phosphorus Magnesium Troponin I High Sens < 2.7 Triglycerides 97 Cholesterol 194 LDL Cholesterol, Calc 121 H HDL Cholesterol 54 Urine Color Urine Appearance Urine pH Ur Specific [place] Urine Protein Urine Glucose (UA) Urine Ketones Urine Blood Urine Nitrite Ur Leukocyte Esterase Urine RBC Urine WBC Ur Squamous Epith Cells Urine Bacteria Hyaline Casts Ethyl Alcohol < 10 05/25/24 05/26/24 16:41 04:32 MCV 83.1 MCH 24.7 L MCHC 29.8 L RDW 20.3 H Plt Count 204 MPV 8.8 L Immature Gran % (Auto) Neut % (Auto) Lymph % (Auto) [place] % (Auto) Eos % (Auto) Baso % (Auto) Lymph # (Auto) [place] # (Auto) Eos # (Auto) Baso # (Auto) Abs Immat Gran (auto) Absolute Neuts (auto) Absolute Nucleated RBC 0.000 Nucleated RBC % (auto) 0.0 PT INR APTT Anion Gap 13 Estim Creat Clear Calc 54.3 Estimated GFR > 60 POC Glucose Random Glucose 83 Estimat Average Glucose Hemoglobin A1c % Calcium 9.2 Phosphorus 4.3 Magnesium 2.1 Troponin I High Sens Triglycerides Cholesterol LDL Cholesterol, Calc HDL Cholesterol Urine Color Yellow Urine Appearance Clear Urine pH 7.5 Ur Specific [place] >= 1.030 H Urine Protein Negative Urine Glucose (UA) Negative Urine Ketones Negative Urine Blood Negative Urine Nitrite Negative Ur Leukocyte Esterase Negative Urine RBC 0-2 Urine WBC 0-5 Ur Squamous Epith Cells 3-5 Urine Bacteria None Seen Hyaline Casts 0-2 Ethyl Alcohol Assessment and Plan (1) Embolic stroke: Status: Acute Plan d2 for 64yo woman with recent embolcs CVA with residual R-sided weakness and word-finding difficulties, 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 Multiple recent admission to [facility] [place] for acute/subacute CVA deemed to be embolic, inadequate self-care, and L3 vertebral fracture. She is unable to give herself Lovenox and is noncompliant with warfarin so was not taking any anticoagulation. Presenting after aphasic episode and L-sided weakness, out of the TNK window. Aphasia resolved but L-sided weakness remains. multiple cerebral infarctions - Neurology consulted, recommends apixaban. Will d/c therapeutic enoxaparin. TTE. PT/OT/OFFICE SPECIALIST consultations pending. Continue high-intensity statin. Hypercoagulability attributed to CA - Unable to give herself Lovenox injections and has refused warfarin because she doesn't want INR checks. Eliquis as above; will d/c Heme-Onc consultation. Hypotension - Resolved; monitor. Not on antihypertensives. Now hypertensive; continue to monitor. Pulmonary aspergillosis - Has a pulmonary nodule that has been biopsied previously on 01/01/24 showing Aspergillus and voriconazole has been recommended. Unclear duration of therapy; will reach out to ID. Last d/c summary from [facility] [place] 05/17/24 says she she continue the medication while immunosuppressed. Per niece Justyna she hasn't been taking it and per pt she was told she doesn't need it anymore; Justyna doubts this is the case. L3 vertebral facture - Niece Justyna will bring in her fitted TLSO brace to wear anytime HOB >30 degrees as per [facility] records. Needs Neurosurgery follow-up in 4 weeks. COPD not in acute flare - Continue ICS/LABA + prn TONIA. Severe protein-calorie malnutrition - Supplements VTE ppx - apixaban. Dispo/FTT - CM consult. It is clear she is unable to live on her own at home and will need SNF placement. In my clinical judgment, the patient requires continued inpatient hospitalization for the following reasons: CVA, placement Total time managing care of this patient today: 50 minutes. Quality Stroke Does the patient have a stroke diagnosis?: Yes Reason for No Anti-thrombotic by Day Two: N/A - Med Ordered VTE Prior VTE?: No VTE Risk Level:: Medical - moderate - high VTE Device Contraindication: N/A - Device Ordered VTE Drug Contraindication: N/A - Med Ordered
--- NOTE | 2024-05-26 14:46 | MHC.CM.PN ---
Pt lives at home alone in a mobile home. Pt states her niece/HCP Justyna lives a few mobile homes away and is usually nearby. Pts niece will transport her home at discharge. Pt states she has [facility] for laundry services and a health aid. HCP on file and verified. PCP: Pt states she does not currently have a PCP, and has been looking for a new one
[2024-05-26] MEDS: Apixaban 5 MG TABLET PO (21:24)
[2024-05-26] MEDS: rOPINIRole HCL 1 MG TABLET PO (21:24)
[2024-05-26] MEDS: Atorvastatin Calcium 80 MG TABLET PO (21:24)
[2024-05-27] VITALS (7 sets, daily range): BP systolic 93–133; BP diastolic 61–74; PULSE 57–71; RESP 18–19; TEMP 35.1–36.7; O2SAT 94–97; BMI 14.7
--- NOTE | 2024-05-27 07:00 | CA_ITS ---
Transthoracic Echocardiogram Patient (Last, First, Middle): Soraida Felix M Gender: Female Date of : 1960 Age: 64 Procedure Date: 05/27/2024 Procedure Type: Transthoracic Echocardiogram Location: [facility] [place] Height: 154.94 cm Weight: 34.93 kg BSA: 1.26 m2 Heart Rate: bpm BP: 119 / 74 mmHg Filler Leaf Cutter Long: Referring MD: Sony Edouard MD Symptoms: cardioembolic source of stroke, Bubble used Study Quality: Good ECG Rhythm: Sinus Conclusions: - The left ventricular systolic function is hyperdynamic. The visually estimated ejection fraction is >70%. - There is mild mitral annular calcification. - No obvious valvular pathology seen on this study. - Bubble study strongly positive for right to left inter-atrial shunt. Findings Left Ventricle Normal left ventricular cavity size. There is normal left ventricular wall thickness. The left ventricular systolic function is hyperdynamic. The visually estimated ejection fraction is >70%. There is no evidence of regional wall motion abnormalities. Diastolic function is normal for age. Right Ventricle Normal right ventricular cavity size and systolic function. Atria Both atria are normal in size. Bubble study strongly positive for right to left inter-atrial shunt. (rest). Aortic Valve The aortic valve was not well visualized. There is no aortic valve stenosis. There is no aortic valve regurgitation. Mitral Valve There is mild mitral annular calcification. There is no mitral valve regurgitation. There is no mitral valve stenosis. Pulmonic Valve The pulmonic valve is likely normal. Tricuspid Valve There is trace tricuspid valve regurgitation. There is no evidence of pulmonary hypertension. Great Vessels The aortic annulus and sinuses of valsalva are normal in size. Venous The inferior vena cava is normal in size and collapses greater than 50% with inspiration. Pericardium/Pleural There is no evidence of pericardial effusion. Prior Study Comparison No prior study available for comparison. Recommendations, Care & Conclusions No obvious valvular pathology seen on this study. Measurements 2D Linear Measurements IVSd: 1.03 0.6-0.9/0.6-1.0 cm LVIDd: 3.41 3.9-5.3/4.2-5.9 cm LVIDd Index: 2.71 2.4-3.2/2.2-3.1 cm/m2 LVIDs: 2.14 2.0-3.6 cm LVPWd: 0.81 0.7-1.1 cm Ao Root: 2.40 2.1-3.5 cm LA Diam: 3.00 2.7-3.8/3.0-4.0 cm LAIDs Index: 2.38 1.5-2.3 cm/m2 LV Mass: 109.00 67-162/88-224 g LV Mass Index: 86.50 43-95/49-115 g/m2 LVOT Diam: 2.00 3.0+(-)1.3 cm 2D Systolic Function EF 4C: 73.80 >55% EF 2C: 63.50 >55% EF BiP: 68.60 >55% Mitral Valve MV Pk E: 0.47 MV PK A: 0.72 MV Decel Time: 428.00 E/A: 0.70 E'Lateral: 13.20 E'Medial: 7.83 E/E' Med: 6.00 E/E' Lat: 3.60 PHT: 125.00 MVA PHT: 1.76 Decel [place]: 1.10 Aortic Valve AoV Pk Geovanny: 1.59 AoV Mn Geovanny: 1.00 AoV VTI: 0.29 AoV Pk Grad: 10.00 Aov Mn Grad: 5.00 LVOT LVOT Diam: 2.00 LVOT Area: 3.14 Diastolic Function MV Pk E: 0.47 MV Pk A: 0.72 E/A: 0.70 E'Medial: 7.83 E/E' Med: 6.00 E' Laterial: 13.20 E/E' Lat: 3.60 Right Ventricle TAPSE (mm): 22.00 TVS' Geovanny: 18.00 Tricuspid Valve TR Pk Geovanny: 2.26 TR Pk Grad: 20.00 RA Press: 3.00 RVSP: 23.00 Great Vessels Aorta Ao Root-2D: 2.40 2.0-3.7 cm Pulmonary Valve PV Pk Geovanny: 1.17 Peak PV Grad: 5.00 Updated in Other Vendor System with Status of Final Sang Nova MD electronically signed on 05/27/2024 3:10:39 PM with status of Final
[2024-05-27] MEDS: oxyCODONE HCl Immed Release 5 MG TABLET PO (07:33)
[2024-05-27] MEDS: Apixaban 5 MG TABLET PO ×2 (07:33→22:07)
--- NOTE | 2024-05-27 09:57 | P.PNIM_ITS ---
Subjective Subjective Date of Service: 05/27/24 Interval History: aphasia resolved L-sided weakness no cough MRI shows multiple small strokes Review of Systems Review of Systems: Yes all other systems are reviewed and are negative Physical Exam 2 Vital Signs: Vital Signs: Last Vital Signs Temp 96.9 F 05/27/24 07:12 Pulse 57 05/27/24 07:12 Resp 18 05/27/24 07:12 BP 119/74 05/27/24 07:12 Pulse Ox 97 05/27/24 07:12 O2 Del Method Room Air 05/27/24 07:12 BMI result Body Mass Index 14.7 Gen: in no acute distress, thin, cachectic HEENT: sclera anicteric, moist mucus membranes Neck: supple, R subclavian port Lungs: clear to auscultation bilaterally Heart: regular rate and rhythm, no murmurs Abd: soft, non-tender, non-distended, PEG tube Ext: no edema Skin: warm/well-perfused Neuro: alert and oriented x3, no facial droop, R hemiparesis, LUE and LLE both 3/5 strength, normal speech Psych: appropriate affect Objective Data Active Medications Acetaminophen (Acetaminophen 325 Mg Tablet) 650 mg PO Q6H PRN PRN Reason: Pain, Mild (Pain Scale 1-3), fever or headache Albuterol Sulfate (Albuterol Sulfate (0.042%) 1.25 Mg/3 Ml Vial.Neb) 2.5 mg INHALE Q4H PRN PRN Reason: shortness of breath or wheezing Albuterol Sulfate (Albuterol Sulfate 90 Mcg 8 Gm Inhaler) 2 puff INHALE QID PRN PRN Reason: for wheezing Apixaban (Apixaban 5 Mg Tablet) 5 mg PO BID [facility] Last Admin: 05/27/24 07:33 Dose: 5 mg Documented By: ANTELMO Atorvastatin Calcium (Atorvastatin Calcium 80 Mg Tablet) 80 mg PO BEDTIME [facility] Last Admin: 05/26/24 21:24 Dose: 80 mg Documented By: GRADY Calcium Carbonate (Calcium Carbonate 750 Mg Tab.Chew) 750 mg PO Q4H PRN PRN Reason: Heartburn Fluticasone/Vilanterol (Fluticasone/Vilanterol 200/25 Blst.W.Dev) 1 puff INHALE RDAILY [facility] Last Admin: 05/27/24 08:52 Dose: Not Given Documented By: DUONG Non-Admin Reason: Patient Refused Magnesium Hydroxide (Milk Of Magnesia 30 Ml Oral.Susp) 30 ml PO DAILY PRN PRN Reason: Constipation Melatonin (Melatonin 3 Mg Tablet) 6 mg PO BEDTIME PRN PRN Reason: Insomnia Omeprazole (Omeprazole 20 Mg Capsule.Dr) 20 mg PO DAILY PRN PRN Reason: Acid Reflux Ondansetron HCl (Ondansetron Hcl 4 Mg/2 Ml Vial) 4 mg IVPUSH Q4H PRN PRN Reason: Nausea and Vomiting Oxycodone HCl (Oxycodone Hcl Immed Release 5 Mg Tablet) 5 mg PO Q6H PRN PRN Reason: Pain, Severe (Pain Scale 7-10) Last Admin: 05/27/24 07:33 Dose: 5 mg Documented By: ANTELMO Pramipexole Dihydrochloride (Pramipexole Di-Hcl 0.125 Mg Tablet) 0.125 mg PO BEDTIME PRN PRN Reason: restless leg syndrome Ropinirole HCl (Ropinirole Hcl 1 Mg Tablet) 1 mg PO BEDTIME BILL Last Admin: 05/26/24 21:24 Dose: 1 mg Documented By: GRADY Labs 05/26/24 04:32 05/26/24 04:32 Assessment and Plan (1) Embolic stroke: Status: Acute Plan 64F PMH recent embolic CVA with residual R-sided weakness and word-finding difficulties, 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 Multiple recent admissions to [facility] [place] for acute/subacute CVA deemed to be embolic, inadequate self-care, and L3 vertebral fracture. She is unable to give herself Lovenox and is noncompliant with warfarin so was not taking any anticoagulation. Presented after aphasic episode and L-sided weakness, out of the TNK window. Aphasia resolved but L-sided weakness remains. multiple cerebral infarctions Neurology - recommends apixaban. TTE. PT/OT/TUNNEL FORM PLACING SUPERVISOR consultations pending. Continue high-intensity statin. Hypercoagulability attributed to CA Unable to give herself Lovenox injections and has refused warfarin because she doesn't want INR checks. Eliquis as above Hypotension Resolved Pulmonary aspergillosis Has a pulmonary nodule that has been biopsied previously on 01/01/24 showing Aspergillus and voriconazole has been recommended. Unclear duration of therapy; will reach out to ID. Last d/c summary from [facility] [place] 05/17/24 says she she continue the medication while immunosuppressed. Per niece Justyna she hasn't been taking it and per pt she was told she doesn't need it anymore; Justyna doubts this is the case. L3 vertebral facture fitted TLSO brace to wear anytime HOB >30 degrees as per [facility] [place] [place] records. Needs Neurosurgery follow-up in 4 weeks. COPD not in acute flare Continue ICS/LABA + prn TONIA. Severe protein-calorie malnutrition Supplements VTE ppx apixaban. Dispo/FTT CM consult. It is clear she is unable to live on her own at home and will need SNF placement. reason for continued hospitalization: CVA, placement Total time managing care of this patient today: 50 minutes. Quality Stroke Does the patient have a stroke diagnosis?: Yes Reason for No Anti-thrombotic by Day Two: N/A - Med Ordered VTE Prior VTE?: No VTE Risk Level:: Medical - moderate - high VTE Device Contraindication: N/A - Device Ordered VTE Drug Contraindication: N/A - Med Ordered
[2024-05-27] MEDS: Acetaminophen 325 MG TABLET 650 MG PO (10:36)
[2024-05-27] MEDS: ondansetron HCL 4 MG/2 ML VIAL IVPUSH (10:37)
--- NOTE | 2024-05-27 11:54 | MHC.CLN ---
RE: CONSULT PT IS SEVERELY MALNOURISHED PT WITH MODERATELY DEPLETED SUBCUTANEOUS FAT AND MUSCLE MASS WITH 9% SIGNIFICANT WT LOSS X 1 YEAR IN PREVIOUSLY MALNOURISHED INDIVIDUAL DIET RX: CHOPPED-APPROPRIATE PT RECEIVING ENSURE TID TO PROVIDE 1050KCALS, 60G PROTEIN (PREFERS CHOCOLATE) MONITOR PO INTAKE AND ENCOURAGE SUPPLEMENTS SEE ALSO FULL CLINICAL NUTRITION ASSESSMENT
--- NOTE | 2024-05-27 15:47 | MHC.SL.SWA ---
Speech Pathologist Impression: Risk of Aspiration, Oropharyngeal Dysphagia, Mild Expressive Aphasia Risk of Aspiration Due to: Medically Fragile Neurological Condition Dysphasia Diet Status: No Change Liquid Consistency and Strategies for Safe Swallow: Liquid Intake Recommendation: Thin Liquid Intake Strategies: Small Sips Double Swallow Solid Food Consistency: Dietary Recommendations: Chopped/Advanced (NDD3) Additional Modifications to Solid Foods: Recommend CONTINUE on CHOPPED/ADVANCED (NDD3) solids and THIN liquids, pills WHOLE or CRUSHED in PUREE per patient's tolerance. Patient will need 1:1 assistance feeding and strategies for swallow safety: take small bites, chew food well, alternate with sips of liquid, take individual sips, NO chugging, dry swallow between bites/sips, upright 90 degree position during feeding. If using a straw, take ONE SIP AT A TIME. Discussed with patient at bedside. Oral Medication Intake: Whole with Puree Please contact the pharmacy regarding appropriate crushable or liquid drug formulations that are available whenever modified delivery is recommended. Compensatory Strategies and Precautions to be Taken for Safe Swallow: Sitting Upright (90 deg) Double Swallow Small Bites and Sips Alternate Liquids/Solids Rate of Ingestion Change Avoid Specific Foods Supervision While Eating and Drinking for Safe Swallow: Total Assistance (1:1) Foods to Avoid: Mixed consistencies Swallowing Recommended Treatments: Compens. Strategy Educat. Recommendation for Speech: Inpatient Speech Therapy Comment: Frequency/Duration: M-F PRN Date Range for Service Req: Timeline to reassess: Dye Weigher Clinican/Clinical Fellow: No Supervisory Statement: I have reviewed and agree with the student/clinical fellow's documentation: N/A Speech Language Pathologist: Ene Franco M.A., CCC-PROPELLER MECHANIC
[2024-05-27] MEDS: rOPINIRole HCL 1 MG TABLET PO (22:07)
[2024-05-27] MEDS: Atorvastatin Calcium 80 MG TABLET PO (22:07)
[2024-05-28 04:00] VITALS: BP 158/63; PULSE 78; RESP 18; TEMP 36.5; O2SAT 94
[2024-05-28 07:38] VITALS: BP 147/66; PULSE 82; RESP 16; TEMP 36.2; O2SAT 96
[2024-05-28] MEDS: Apixaban 5 MG TABLET PO ×2 (08:36→21:11)
[2024-05-28] MEDS: oxyCODONE HCl Immed Release 5 MG TABLET PO ×2 (08:50→18:10)
--- NOTE | 2024-05-28 09:39 | P.PNIM_ITS ---
Subjective Subjective Date of Service: 05/28/24 Interval History: aphasia resolved L-sided weakness no cough MRI shows multiple small strokes Review of Systems Review of Systems: Yes all other systems are reviewed and are negative Physical Exam 2 Vital Signs: Vital Signs: Last Vital Signs Temp 97.1 F 05/28/24 07:38 Pulse 82 05/28/24 07:38 Resp 16 05/28/24 07:38 BP 147/66 H 05/28/24 07:38 Pulse Ox 96 05/28/24 07:38 O2 Del Method Room Air 05/28/24 07:38 BMI result Body Mass Index 14.7 Gen: in no acute distress, thin, cachectic HEENT: sclera anicteric, moist mucus membranes Neck: supple, R subclavian port Lungs: clear to auscultation bilaterally Heart: regular rate and rhythm, no murmurs Abd: soft, non-tender, non-distended, PEG tube Ext: no edema Skin: warm/well-perfused Neuro: alert and oriented x3, no facial droop, R hemiparesis, LUE and LLE both 3/5 strength, normal speech Psych: appropriate affect Objective Data Active Medications Acetaminophen (Acetaminophen 325 Mg Tablet) 650 mg PO Q6H PRN PRN Reason: Pain, Mild (Pain Scale 1-3), fever or headache Last Admin: 05/27/24 10:36 Dose: 650 mg Documented By: ANTELMO Albuterol Sulfate (Albuterol Sulfate (0.042%) 1.25 Mg/3 Ml Vial.Neb) 2.5 mg INHALE Q4H PRN PRN Reason: shortness of breath or wheezing Albuterol Sulfate (Albuterol Sulfate 90 Mcg 8 Gm Inhaler) 2 puff INHALE QID PRN PRN Reason: for wheezing Apixaban (Apixaban 5 Mg Tablet) 5 mg PO BID [facility] Last Admin: 05/28/24 08:36 Dose: 5 mg Documented By: ANTELMO Atorvastatin Calcium (Atorvastatin Calcium 80 Mg Tablet) 80 mg PO BEDTIME [facility] Last Admin: 05/27/24 22:07 Dose: 80 mg Documented By: PELON Calcium Carbonate (Calcium Carbonate 750 Mg Tab.Chew) 750 mg PO Q4H PRN PRN Reason: Heartburn Fluticasone/Vilanterol (Fluticasone/Vilanterol 200/25 Blst.W.Dev) 1 puff INHALE RDAILY [facility] Last Admin: 05/28/24 07:33 Dose: Not Given Documented By: DUONG Non-Admin Reason: Patient Refused Magnesium Hydroxide (Milk Of Magnesia 30 Ml Oral.Susp) 30 ml PO DAILY PRN PRN Reason: Constipation Melatonin (Melatonin 3 Mg Tablet) 6 mg PO BEDTIME PRN PRN Reason: Insomnia Omeprazole (Omeprazole 20 Mg Capsule.Dr) 20 mg PO DAILY PRN PRN Reason: Acid Reflux Ondansetron HCl (Ondansetron Hcl 4 Mg/2 Ml Vial) 4 mg IVPUSH Q4H PRN PRN Reason: Nausea and Vomiting Last Admin: 05/27/24 10:37 Dose: 4 mg Documented By: ANTELMO Oxycodone HCl (Oxycodone Hcl Immed Release 5 Mg Tablet) 5 mg PO Q6H PRN PRN Reason: Pain, Severe (Pain Scale 7-10) Last Admin: 05/28/24 08:50 Dose: 5 mg Documented By: ANTELMO Pramipexole Dihydrochloride (Pramipexole Di-Hcl 0.125 Mg Tablet) 0.125 mg PO BEDTIME PRN PRN Reason: restless leg syndrome Ropinirole HCl (Ropinirole Hcl 1 Mg Tablet) 1 mg PO BEDTIME [facility] Last Admin: 05/27/24 22:07 Dose: 1 mg Documented By: ANDERM Labs 05/26/24 04:32 05/26/24 04:32 Assessment and Plan (1) Embolic stroke: Status: Acute Plan 64F PMH recent embolic CVA with residual R-sided weakness and word-finding difficulties, 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 Multiple recent admissions to [facility] [place] for acute/subacute CVA deemed to be embolic, inadequate self-care, and L3 vertebral fracture. She is unable to give herself Lovenox and is noncompliant with warfarin so was not taking any anticoagulation. Presented after aphasic episode and L-sided weakness, out of the TNK window. Aphasia resolved but L-sided weakness remains. multiple cerebral infarctions Neurology - recommends apixaban. TTE. PT/OT/CASH RECONCILIATION SPECIALIST consultations pending. Continue high-intensity statin. Hypercoagulability attributed to CA Unable to give herself Lovenox injections and has refused warfarin because she doesn't want INR checks. Eliquis as above Hypotension Resolved Pulmonary aspergillosis Has a pulmonary nodule that has been biopsied previously on 01/01/24 showing Aspergillus and voriconazole has been recommended. Unclear duration of therapy; will reach out to ID. Last d/c summary from [facility] [place] 05/17/24 says she she continue the medication while immunosuppressed. Per niece Justyna she hasn't been taking it and per pt she was told she doesn't need it anymore; Justyna doubts this is the case. L3 vertebral facture fitted TLSO brace to wear anytime HOB >30 degrees as per [facility] [place] records. Needs Neurosurgery follow-up in 4 weeks. COPD not in acute flare Continue ICS/LABA + prn TONIA. Severe protein-calorie malnutrition Supplements VTE ppx apixaban. Dispo/FTT CM consult. It is clear she is unable to live on her own at home and will need SNF placement. reason for continued hospitalization: CVA, placement Total time managing care of this patient today: 50 minutes. Quality Stroke Does the patient have a stroke diagnosis?: Yes Reason for No Anti-thrombotic by Day Two: N/A - Med Ordered VTE Prior VTE?: No VTE Risk Level:: Medical - moderate - high VTE Device Contraindication: N/A - Device Ordered VTE Drug Contraindication: N/A - Med Ordered
[2024-05-28] MEDS: ondansetron HCL 4 MG/2 ML VIAL IVPUSH ×2 (10:28→21:23)
[2024-05-28] MEDS: Albuterol Sulfate (0.042%) 1.25 MG/3 ML VIAL.NEB 2.5 MG INHALE (11:00)
[2024-05-28 11:03] VITALS: PULSE 82; RESP 16; O2SAT 98
[2024-05-28 11:09] VITALS: BP 143/84; PULSE 81; RESP 18; TEMP 36.6; O2SAT 98
--- NOTE | 2024-05-28 13:19 | MHC.SL.DTX ---
Dysphagia Diet modifications: Last documented Solid diet consistencies: Chopped/Advanced (NDD3) Last documented Liquid consistency: Thin Last documented Medication Administration: Changes made to current diet?: Yes Liquid Consistency and Strategies: Liquid Intake Recommendation: Thin Compensatory Strategies for Safe Swallow: Small Sips Double Swallow Compensatory Strategies for Safe Swallow(b): Sitting Upright (90 deg) Alternate Liquids/Solids Avoid Specific Foods Solid Food Consistency: Dietary Recommendations: Chopped/Advanced (NDD3) Additional Modifications to Solids: Recommend CONTINUE on CHOPPED/ADVANCED (NDD3) solids and THIN liquids, pills WHOLE or CRUSHED in PUREE per patient's tolerance. Patient will need 1:1 assistance feeding and strategies for swallow safety: take small bites, chew food well, alternate with sips of liquid, take individual sips, NO chugging, dry swallow between bites/sips, upright 90 degree position during feeding. If using a straw, take ONE SIP AT A TIME. Discussed with patient at bedside. Oral Medication Intake: Whole with Puree Strategies and Precautions to be Taken for Safe Swallow: Sitting Upright (90 deg) Alternate Liquids/Solids Avoid Specific Foods Supervision While Eating and/Drinking: Total Supervision (1:1) Foods to Avoid: Mixed consistencies, difficult to chew solids. Swallowing Recommended Treatments: Compens. Strategy Educat. Level of Impact on: Daily activities: Mild Interpersonal interactions: Education: None Employment: None Community: Mild Prognosis for Improvement: Good Recommendation for Speech: Inpatient Speech Therapy Comment: 1:1 feeding and strategies for swallow safety: individual sips, no chain sipping, upright 90 degree position, small bites, chew well, dry swallow between bites/sips Frequency/Duration: M-F PRN Date Range for Service Req: Timeline to reassess: Additional Comments: Treatment: Pt is sitting upright in bed. Her chief complaint continues to be with manual access to foods given her difficulty handling utensils. OT is unable to provide in this setting. Pt states that she is aware and has been looking at them on [facility]. Her plan is for STR. MICROELECTRONICS ASSEMBLER recommends she connect with an OT at that facility that can guide her further. She reports no other difficulties with solids or liquids and is content with having 1:1 feeding supervision. She is a self-proclaimed picky eater but agrees to trial a Chopped/Advanced solid breakfast bar she has in the room along with her own iced coffee from a straw. No overt s/s of aspiration noted with repeated bites and sips and no significant difficulty chewing. Continue to recommend Chopped/Advanced Solids (NDD3) with Thin Liquids. Medication Whole or Liquids, or with Puree if preferred. Continue Close Supervision with 1:1 feeding. Additionally recommend re-assessment by MICROELECTRONICS ASSEMBLER and OT at her next level of care to provide her with the safest, least restrictive diet. No further intervention required at this time. Assessment: Pointer Helper Clinican/Clinical Fellow: No Supervisory Statement: I have reviewed and agree with the student/clinical fellow's documentation: N/A Speech Language Pathologist: Sim Yadav M.A., CCC-MICROELECTRONICS ASSEMBLER
--- NOTE | 2024-05-28 13:36 | P.CNID_ITS ---
History of Present Illness Data of Consult Service Date: 05/27/24 Requesting physician: Kareem Barnard Primary Care Provider: Jennifer Flores MD HPI Reason for consult: prior aspergillosis ?ABPA lung She presents with weakness and some numbness left facial area. 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 She was discharged from [facility] as well earlier. She has h/o pulmonary aspergillosis and had been on voriconazole but patient said this is done. XR no acute changes and not on oxygen. Review of Systems 2 Review of Systems: Yes all other systems are reviewed and are negative PMFSH Past Medical History Medical History Pulmonary nodule 1 cm or greater in diameter Squamous cell carcinoma of epiglottis Weight loss, unintentional Skin lesion of back Immunization declined Fracture of proximal end of fibula Contusion of leg, right Vaccination declined by patient Cervical lymphadenopathy Carotid stenosis, right Microcytic hypochromic anemia Left cervical lymphadenopathy Bilateral carotid bruits Smoker Idiopathic hypercalciuria Thyroid nodule Hx of angiography Vitamin D deficiency Goiter History of tachycardia GERD (gastroesophageal reflux disease) Gastritis Duodenitis Pyloric ulcer History of alcohol abuse Myopia of both eyes Papanicolaou smear declined Mammogram declined Smoker unmotivated to quit Restless leg syndrome Aortoiliac occlusive disease Tubular adenoma of colon Chronic Helicobacter pylori gastritis COPD (chronic obstructive pulmonary disease) Fibromyalgia Peripheral vascular disease Osteoporosis Family History Family History Father Substance use disorder Mother Osteoporosis Substance use disorder Brother Substance use disorder Sister Substance use disorder Lung cancer Sister Substance use disorder Brother Substance use disorder Family history: reviewed and not pertinent Surgical History Surgical History Hx of coronary angiogram History of removal of skin mole Hx of colonoscopy History of surgery on lower extremity Hx of foot surgery History of surgical removal of lesion (~10/28/21) History of lung biopsy (~04/2021) History of exploratory thoracotomy (~04/2018) History of tonsillectomy History of endarterectomy (~05/2020) History of ankle surgery (~11/2011) History of myringotomy History of appendectomy History of tubal ligation Social History Social History Household Members: None Housing: Other Housing Other:: mobile home Are you a primary child care coordinator to a significant other at home: No Do you presently have visiting nurse or other home services: No Unable to assess alcohol history related to: Unknown Alcohol intake: former Patient Tobacco Use Status: Current everyday Tobacco user Tobacco use type: Cigarette Cigarette Packs Per Day: 1 Years Smoked: 50+ e-Cigarette/Vaping Use: Never Used Second Hand Smoke Exposure: Yes Advance Directives Date on File: 12/12/23 service: No Current occupational status: disabled Current occupation: rt handed Current occupational exposures/hazards: No Cognitive needs: No Hearing needs: No Vision needs: Yes Meds Allergies Allergy/AdvReac Type Severity Reaction Status Date / Time aspirin AdvReac Mild Vomiting Verified 05/25/24 13:59 Active Medications: Current Medications Acetaminophen (Acetaminophen 325 Mg Tablet) 650 mg PO Q6H PRN PRN Reason: Pain, Mild (Pain Scale 1-3), fever or headache Last Admin: 05/27/24 10:36 Dose: 650 mg Albuterol Sulfate (Albuterol Sulfate (0.042%) 1.25 Mg/3 Ml Vial.Neb) 2.5 mg INHALE Q4H PRN PRN Reason: shortness of breath or wheezing Last Admin: 05/28/24 11:00 Dose: 2.5 mg Albuterol Sulfate (Albuterol Sulfate 90 Mcg 8 Gm Inhaler) 2 puff INHALE QID PRN PRN Reason: for wheezing Apixaban (Apixaban 5 Mg Tablet) 5 mg PO BID [facility] Last Admin: 05/28/24 08:36 Dose: 5 mg Atorvastatin Calcium (Atorvastatin Calcium 80 Mg Tablet) 80 mg PO BEDTIME [facility] Last Admin: 05/27/24 22:07 Dose: 80 mg Calcium Carbonate (Calcium Carbonate 750 Mg Tab.Chew) 750 mg PO Q4H PRN PRN Reason: Heartburn Fluticasone/Vilanterol (Fluticasone/Vilanterol 200/25 Blst.W.Dev) 1 puff INHALE RDAILY [facility] Last Admin: 05/28/24 07:33 Dose: Not Given Magnesium Hydroxide (Milk Of Magnesia 30 Ml Oral.Susp) 30 ml PO DAILY PRN PRN Reason: Constipation Melatonin (Melatonin 3 Mg Tablet) 6 mg PO BEDTIME PRN PRN Reason: Insomnia Omeprazole (Omeprazole 20 Mg Capsule.Dr) 20 mg PO DAILY PRN PRN Reason: Acid Reflux Ondansetron HCl (Ondansetron Hcl 4 Mg/2 Ml Vial) 4 mg IVPUSH Q4H PRN PRN Reason: Nausea and Vomiting Last Admin: 05/28/24 10:28 Dose: 4 mg Oxycodone HCl (Oxycodone Hcl Immed Release 5 Mg Tablet) 5 mg PO Q6H PRN PRN Reason: Pain, Severe (Pain Scale 7-10) Last Admin: 05/28/24 08:50 Dose: 5 mg Pramipexole Dihydrochloride (Pramipexole Di-Hcl 0.125 Mg Tablet) 0.125 mg PO BEDTIME PRN PRN Reason: restless leg syndrome Ropinirole HCl (Ropinirole Hcl 1 Mg Tablet) 1 mg PO BEDTIME BILL Last Admin: 05/27/24 22:07 Dose: 1 mg Home Medications ?Medication ?Instructions ?Recorded ?Confirmed ?Last Taken ?Type oxycodone 5 mg/5 mL oral solution 5 mg PO Q8H PRN severe pain 05/25/24 05/25/24 Unknown History pantoprazole 40 mg tablet,delayed 40 mg PO DAILY PRN Acid Reflux 05/25/24 05/25/24 Unknown History release pramipexole 0.125 mg tablet 0.125 mg PO BEDTIME PRN restless 05/25/24 05/25/24 Unknown History leg syndrome ropinirole 1 mg tablet 1 mg PO BEDTIME 05/25/24 05/25/24 Unknown History Physical Exam 2 Vital Signs: Vital Signs: Last Vital Signs Temp 97.8 F 05/28/24 11:09 Pulse 81 05/28/24 11:09 Resp 18 05/28/24 11:09 BP 143/84 H 05/28/24 11:09 Pulse Ox 98 05/28/24 11:09 O2 Del Method Room Air 05/28/24 11:09 BMI result Body Mass Index 14.7 Const: General: cooperative HEENT: Head: Yes normal to inspection Face and sinus: Yes normal facial exam Mouth: Normal oral and palatal mucosa present Teeth and gingiva: d entition normal Eyes: General: appearance normal, both eyes and all related structures P upils: Equal, round and reactive pupils present Resp: Effort & Inspection: normal respiratory effort Cardio: Rate: regular rate Rhythm: regular rhythm GI: Palpation (GI): Soft to palpation and nontender : General: Yes no CVA tenderness Back/Spine/Pelvis: Back: no CVA tenderness Skin: General skin exam: no rashes or lesions noted Neuro: General: moves all extremities Cranial nerves: Yes Equal, round and reactive pupils present Extrem: General: Yes normal to inspection Psych: Appearance: grossly normal Results Labs 05/26/24 04:32 05/26/24 04:32 Assessment and Plan (1) Embolic stroke: Status: Acute Plan She has no active pulmonary aspergillosis at this time Would continue to hold voriconazole and follow with provider outpatient.
--- NOTE | 2024-05-28 14:40 | MHC.STROKE ---
Met with patient to discuss Stroke Education. Pt awake, alert and oriented. Pt sitting up in bed watching TV. Pt was engaged in conversation with this nurse. Answered questions appropriately. Speech clear. Pt reports residual right sided weakness from previous stroke. C/O being unable to move and speak along with new left sided weakness which brought her to [facility] this time. We discussed the findings of her scans along with risk factors, which included smoking. Both picture and stroke pamphlet provided to patient. All questions answered. Patient was also provided the [facility] Stroke and [facility] Support [facility] card/information. Will continue to assist as needed.
[2024-05-28 15:47] VITALS: BP 144/86; PULSE 71; RESP 22; TEMP 36.2; O2SAT 96
[2024-05-28 20:00] VITALS: BP 131/64; PULSE 70; RESP 18; TEMP 36.5; O2SAT 97
[2024-05-28] MEDS: Acetaminophen 325 MG TABLET 650 MG PO (21:10)
[2024-05-28] MEDS: Pramipexole Di-HCL 0.125 MG TABLET PO (21:11)
[2024-05-28] MEDS: Atorvastatin Calcium 80 MG TABLET PO (21:11)
[2024-05-28] MEDS: rOPINIRole HCL 1 MG TABLET PO (21:11)
[2024-05-29] VITALS (7 sets, daily range): BP systolic 127–158; BP diastolic 64–77; PULSE 57–72; RESP 16–20; TEMP 36.3–36.6; O2SAT 93–96
[2024-05-29] MEDS: Acetaminophen 325 MG TABLET 650 MG PO (05:19)
[2024-05-29] MEDS: oxyCODONE HCl Immed Release 5 MG TABLET PO ×2 (05:19→12:06)
[2024-05-29] MEDS: Apixaban 5 MG TABLET PO ×2 (08:51→21:49)
--- NOTE | 2024-05-29 11:25 | MHC.CLN ---
F/U PT IS SEVERELY MALNOURISHED SEE FULL CLINICAL NUTRITION ASSESSMENT DATED 05/27/24 DIET RX: CHOPPED-APPROPRIATE PT RECEIVING ENSURE TID TO PROVIDE 1050KCALS, 60G PROTEIN (PREFERS CHOCOLATE) MONITOR PO INTAKE AND ENCOURAGE SUPPLEMENTS
--- NOTE | 2024-05-29 12:10 | P.PNIM_ITS ---
Subjective Subjective Date of Service: 05/29/24 Interval History: seen and evaluated this morning feels better speech clearer weakness improving on left side no other events Review of Systems Review of Systems: Yes all other systems are reviewed and are negative Physical Exam 2 Vital Signs: Vital Signs: Last Vital Signs Temp 97.9 F 05/29/24 11:13 Pulse 72 05/29/24 11:13 Resp 18 05/29/24 11:13 BP 134/64 05/29/24 11:13 Pulse Ox 94 05/29/24 11:13 O2 Del Method Room Air 05/29/24 11:13 BMI result Body Mass Index 14.7 Const: Other: Constitutional : Awake, interactive, not in distress Neck : Normal inspection, Supple Cardiovascular : RRR, no JVP, no lower extremity edema Respiratory : good bilateral air entry, no crackles, wheezes or rhonchi Gastrointestinal: soft, lax, Normal bowel sounds, Non tender Skin : Warm, Dry Neurological : Alert & oriented x3, No focal deficit , CN 2-12 within normal, normal spontaneity of speech fluency comprehension and flat affect. Visual field revealed left hemianopsia. Face is symmetrical. There was diffuse muscle atrophy with bilateral extensor plantars. Speech was hoarse. Objective Data Active Medications Acetaminophen (Acetaminophen 325 Mg Tablet) 650 mg PO Q6H PRN PRN Reason: Pain, Mild (Pain Scale 1-3), fever or headache Last Admin: 05/29/24 05:19 Dose: 650 mg Documented By: HALIMA Albuterol Sulfate (Albuterol Sulfate (0.042%) 1.25 Mg/3 Ml Vial.Neb) 2.5 mg INHALE Q4H PRN PRN Reason: shortness of breath or wheezing Last Admin: 05/28/24 11:00 Dose: 2.5 mg Documented By: DUONG Albuterol Sulfate (Albuterol Sulfate 90 Mcg 8 Gm Inhaler) 2 puff INHALE QID PRN PRN Reason: for wheezing Apixaban (Apixaban 5 Mg Tablet) 5 mg PO BID [facility] Last Admin: 05/29/24 08:51 Dose: 5 mg Documented By: ROCK Atorvastatin Calcium (Atorvastatin Calcium 80 Mg Tablet) 80 mg PO BEDTIME [facility] Last Admin: 05/28/24 21:11 Dose: 80 mg Documented By: HALIMA Calcium Carbonate (Calcium Carbonate 750 Mg Tab.Chew) 750 mg PO Q4H PRN PRN Reason: Heartburn Fluticasone/Vilanterol (Fluticasone/Vilanterol 200/25 Blst.W.Dev) 1 puff INHALE RDAILY [facility] Last Admin: 05/29/24 07:30 Dose: Not Given Documented By: DUONG Non-Admin Reason: Patient Refused Magnesium Hydroxide (Milk Of Magnesia 30 Ml Oral.Susp) 30 ml PO DAILY PRN PRN Reason: Constipation Melatonin (Melatonin 3 Mg Tablet) 6 mg PO BEDTIME PRN PRN Reason: Insomnia Omeprazole (Omeprazole 20 Mg Capsule.Dr) 20 mg PO DAILY PRN PRN Reason: Acid Reflux Ondansetron HCl (Ondansetron Hcl 4 Mg/2 Ml Vial) 4 mg IVPUSH Q4H PRN PRN Reason: Nausea and Vomiting Last Admin: 05/28/24 21:23 Dose: 4 mg Documented By: HALIMA Oxycodone HCl (Oxycodone Hcl Immed Release 5 Mg Tablet) 5 mg PO Q6H PRN PRN Reason: Pain, Severe (Pain Scale 7-10) Last Admin: 05/29/24 12:06 Dose: 5 mg Documented By: ROCK Pramipexole Dihydrochloride (Pramipexole Di-Hcl 0.125 Mg Tablet) 0.125 mg PO BEDTIME PRN PRN Reason: restless leg syndrome Last Admin: 05/28/24 21:11 Dose: 0.125 mg Documented By: HALIMA Ropinirole HCl (Ropinirole Hcl 1 Mg Tablet) 1 mg PO BEDTIME [facility] Last Admin: 05/28/24 21:11 Dose: 1 mg Documented By: HALIMA Labs 05/26/24 04:32 05/26/24 04:32 Assessment and Plan (1) Embolic stroke: Status: Acute (2) Embolic cerebral infarction: Status: Acute (3) Multiple cerebral infarctions: Status: Acute Plan 64F PMH recent embolic CVA with residual R-sided weakness and word-finding difficulties, 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 Multiple recent admissions to [facility] for acute/subacute CVA deemed to be embolic, inadequate self-care, and L3 vertebral fracture. She is unable to give herself Lovenox and is noncompliant with warfarin so was not taking any anticoagulation. Presented after aphasic episode and L-sided weakness, out of the TNK window. Aphasia resolved but L-sided weakness remains. multiple cerebral infarctions Speech and weakness improving Neurology recommends apixaban. TTE w normal EF PT/OT/BRICKMASON following Continue high-intensity statin. Hypercoagulability attributed to CA Unable to give herself Lovenox injections and has refused warfarin because she doesn't want INR checks. started on Eliquis as above Hypotension Resolved Pulmonary aspergillosis Has a pulmonary nodule that has been biopsied previously on 01/01/24 showing Aspergillus and voriconazole has been recommended. Unclear duration of therapy; will reach out to ID. Last d/c summary from [facility] 05/17/24 says she she continue the medication while immunosuppressed. Per niece Justyna she hasn't been taking it and per pt she was told she doesn't need it anymore; Justyna doubts this is the case. L3 vertebral facture fitted TLSO brace to wear anytime HOB >30 degrees as per [facility] records. Needs Neurosurgery follow-up in 4 weeks. COPD not in acute flare Continue ICS/LABA + prn TONIA. Severe protein-calorie malnutrition Supplements VTE ppx apixaban. Dispo/FTT CM consult. It is clear she is unable to live on her own at home and will need SNF placement. reason for continued hospitalization: CVA, placement Quality Stroke Does the patient have a stroke diagnosis?: Yes Reason for No Anti-thrombotic by Day Two: N/A - Med Ordered VTE Prior VTE?: No VTE Risk Level:: Medical - moderate - high VTE Device Contraindication: N/A - Device Ordered VTE Drug Contraindication: N/A - Med Ordered
[2024-05-29] MEDS: Atorvastatin Calcium 80 MG TABLET PO (21:49)
[2024-05-29] MEDS: rOPINIRole HCL 1 MG TABLET PO (21:49)
[2024-05-30 04:00] VITALS: BP 144/82; PULSE 69; RESP 21; TEMP 36.1; O2SAT 95
[2024-05-30 06:58] LABS: Prothrombin Time Whole Bld POC 12.3 sec (11.1-13.5)
[2024-05-30 07:26] VITALS: BP 150/66; PULSE 68; RESP 18; TEMP 36.9; O2SAT 94
[2024-05-30] MEDS: Apixaban 5 MG TABLET PO (08:08)
[2024-05-30 11:29] VITALS: BP 146/69; PULSE 73; RESP 18; TEMP 37.3; O2SAT 95
[2024-05-30] MEDS: oxyCODONE HCl Immed Release 5 MG TABLET PO (14:24)
--- NOTE | 2024-05-30 14:25 | PM.DS ---
DS: Providers Provider Date of Service: 05/30/24 Date of admission: 05/25/24 17:23 Date of discharge: 05/30/24 Primary care physician: None Physician Consults: 05/25/24 16:51 Consult to Neurology Routine Consulting Provider: [facility] Reason for consultation: aphasia/L-sided weakness 05/25/24 18:08 Consult to Infectious Diseases Routine Consulting Provider: [facility] Reason for consultation: Pulmonary aspergillosis, was on voriconazole- continue?? DS: Diagnosis Discharge Diagnosis (1) Embolic stroke: Status: Acute (2) Embolic cerebral infarction: Status: Acute (3) Multiple cerebral infarctions: Status: Acute DS: Summary Hospital Course Hospital Course: Admission note HPI 64yo woman with recent embolis CVA with residual R-sided weakness and word-finding difficulties, locally advanced laryngeal carcinoma [diagnosed in October 2023] s/p radiation/chemotherapy, malnutrition s/p G-tube but no longer using this, pulmonary aspergillosis treated with voriconazole, COPD, tobacco abuse, PAD s/p fem-fem bypass. She was admitted to [facility] 02/20-02/25/24 with AMS and found to have acute/subacute CVA. She had bihemispheric infarcts; subacute in the right parietal region (inferior division of the MCA) and acute left in the posterior periventricular region. (CTA with L cervical ICA proximal occlusion of undetermined age and intracranial collateralization, since siphon ICA is filled by ophthalmic artery and left A1 is open.) Therapeutic anticoagulation was recommended and ultimately she was discharged home on enoxaparin. Unfortunately, she had difficulty administering Lovenox shots, flushing her G-tube, or taking care of herself in general and was directly re-admitted to [facility] on 03/05/24 from the Oncology clinic when she was noted to have a flea infestation. She was transitioned to warfarin and discharged home on 03/15/24. She was admitted a 3rd time to [facility] 05/15-05/17/24 after falling and sustaining an L3 vertebral fracture. Neurosurgery was consulted and recommended she wear a soft TLSO brace for 4-6 weeks. Short-term rehabilitation was strongly recommended but she adamantly refused. She also refused VNA services. She lives alone and gets around the house by grabbing onto the egan and furniture. She has a wheelchair when she leaves the house, which is rare. She returned to the [facility] ED 05/23/24 with inability to get out of bed and was noted to not be wearing her brace nor taking her warfarin. Today, she called a neighbor around 1300 due to inability to move and was noted to be aphasic. She has chronic R-sided weakness but NIHSS was 19. However, in the CT scan, aphasia resolved and she had more strength in the left leg. Her speech is now normal. Currently her major complaints are of hunger, L foot pain, and R foot numbness. Neurology was called from the ED and recommended aspirin and admission. However, the patient refuses to take aspirin, saying that it makes her vomit. She's been on clopidgrel in the past and got one 75 mg dose. She was also noted to be hypotensive on arrival, with BP 85/54. However, this resolved on its own and BP is currently 102/61. She denies lightheadedness, chest pain, or palpitations. CT of the brain showed posterior R parieto-occipital encephalomalacia corresponding to a prior posterior R MCA stroke. CTA of the head/neck showed L ICA occlusion from the bulb to the terminus. There is an irregular thick-walled nodule at the R apex of the lung. She is no longer on voriconazole. Hospital course The patieht had Multiple recent admissions to [facility] for acute/subacute CVA deemed to be embolic, inadequate self-care, and L3 vertebral fracture. She is unable to give herself Lovenox and is noncompliant with warfarin so was not taking any anticoagulation. Presented after aphasic episode and right sided weakness, out of the TNK window. Aphasia almost completely resolved but right side weakness remains. # Acute multiple cerebral infarctions, Speech and weakness improved as Neurology recommends apixaban along high intensity statins. TTE w normal EF. evaluated by PT/OT/LEARNING AND DEVELOPMENT MANAGER who recommended SNF placement and [facility] DEVELOPMENT MANAGER follow up as outpatient. No swallowing problems reported as she tolerate NDD3 diet with thin liquids. # Hx of Hypercoagulability attributed to Cancer. Unable to give herself Lovenox injections and has refused warfarin because she doesn't want INR checks. started on Eliquis as above # L3 vertebral facture, fitted TLSO brace to wear anytime HOB >30 degrees as per [facility] records. Needs Neurosurgery follow-up in 4 weeks. # COPD not in acute flare, Continue ICS/LABA + prn TONIA. # Severe protein-calorie malnutrition, Supplements Discharge plan Continue Eliquis 5 mg two times a day Continue Atorvastatin 80 mg at bedtime Follow with speech therapy as outpatient Time Attestation Discharge Coordination Time (in mins): 39 Quality: Safe Use of Opioids Does Pt have an Active Cancer Diagnosis on the Problem List?: Yes Opioid Measure Date for [facility] Report: 04/30/24 Opioid Measure Time for [facility] Report: 14:30 Quality: Stroke Does the patient have a stroke diagnosis?: Yes Reason for No Anti-thrombotic at DC: Not indicated Reason for No Anticoagulant at DC: N/A - Med Ordered Reason Not Initiating IV-Tpa: Not indicated Reason for No Anti-thrombotic by Day Two: Not indicated Reason for No Statin at DC: N/A - Med Ordered Physical Exam Vital Signs: Vital Signs: Last Vital Signs Temp 99.1 F 05/30/24 11:29 Pulse 73 05/30/24 11:29 Resp 18 05/30/24 11:29 BP 146/69 H 05/30/24 11:29 Pulse Ox 95 05/30/24 11:29 O2 Del Method Room Air 05/30/24 11:29 BMI result Body Mass Index 14.7 Const: Other: Constitutional : Awake, interactive, not in distress Neck : Normal inspection, Supple Cardiovascular : RRR, no JVP, no lower extremity edema Respiratory : good bilateral air entry, no crackles, wheezes or rhonchi Gastrointestinal: soft, lax, Normal bowel sounds, Non tender Skin : Warm, Dry Neurological : Alert & oriented x3, No focal deficit , CN 2-12 within normal, normal spontaneity of speech fluency comprehension and flat affect. Visual field revealed left hemianopsia. Face is symmetrical. There was diffuse muscle atrophy with bilateral extensor plantars. Speech was hoarse. DS: Data Data Completed and Pending Completed studies during hospitalization [Text1]: Procedures Excision of Stomach, Pylorus, Via Natural or Artificial Opening Endoscopic, Diagnostic (07/19/21) Transfusion of Nonautologous Red Blood Cells into Peripheral Vein, Percutaneous Approach (07/19/21) Labs on day of discharge: Laboratory Results - last 24 hr 05/25/24 14:35 Whole Blood PT 12.3 Whole Blood INR 1.0 Imaging MRI - head: Radiologist's impression: ITS Impressions Chest X-Ray 05/25/24 13:30 IMPRESSION: 1. Bronchial wall thickening suggesting small airways disease. 2. Nodular opacity in the left lower lung field could represent a nipple shadow. Recommend repeating the exam with nipple markers. Electronically signed by: Scout Lopez MD 05/25/2024 02:44 PM EDT RP Head CT 05/25/24 13:41 IMPRESSION: 1. Deep white matter and periventricular hypoattenuation, nonspecific; most likely sequela of chronic microvascular angiopathy ischemia. 2. There is an area of encephalomalacia in the posterior right parieto-occipital region likely sequela of an infarct in the distribution of the posterior segment of the right middle cerebral artery indeterminant age, no associated intracranial hemorrhage or mass effect. (Referring physician staff is being called, by physician staff assistance, to be alerted of the above critical findings and recommendations.) 05/25/2024 1:16 PM CDT Electronically signed by: Tr Jurado MD 05/25/2024 02:17 PM EDT RP Head/Neck CTA 05/25/24 13:46 IMPRESSION: 1. Occlusion of the left internal carotid artery from the carotid bulb to the carotid terminus. 2. No significant stenosis in the right internal carotid artery. 3. Patent yocha dehe of [place]. 4. Improvement of the irregular mass involving the epiglottis that was visualized on the prior exam. 5. Redemonstration of the linear irregular thick-walled consolidation/nodule at the right apex. Emergent results were discussed with Swathi Noonan NP at 345pm on 05/25/24. Electronically signed by: Roslyn King MD 05/25/2024 03:55 PM EDT RP Brain MRI 05/25/24 20:57 IMPRESSION: 1. Several small foci of diffusion restriction bilaterally in the peripheral parietal lobes consistent with small acute strokes. 2. Punctate foci of subacute-chronic subarachnoid hemorrhage in the region of the right posterior parietal developing encephalomalacia. Electronically signed by: Roslyn King MD 05/25/2024 09:53 PM EDT RP Discharge Plan Discharge Anticipated Discharge Date/Time: 05/30/24 14:19 Patient Disposition: Xfer SNF Discharge Diagnosis: Embolic stroke Referrals: [facility] [Outside] - 1 Week Physician,None [Primary Care Provider] - 1 Week Discharge Medications: New Eliquis 5 mg Tablet 5 mg PO BID Qty: 180 0RF atorvastatin 80 mg Tablet 80 mg PO BEDTIME Qty: 90 0RF Continued albuterol sulfate 1.25 mg/3 mL solution for nebulization 2.5 mg inhalation Q4-6H PRN (Reason: shortness of breath or wheezing) 30 Days Qty: 90 3RF budesonide-formoterol [Symbicort] 160-4.5 mcg/actuation HFA aerosol inhaler 2 puff PO BID Qty: 10.2 5RF albuterol sulfate [Ventolin HFA] 90 mcg/actuation HFA aerosol inhaler 2 puff inhalation QID PRN (Reason: for wheezing) Qty: 18 0RF ropinirole 1 mg tablet 1 mg PO BEDTIME pramipexole 0.125 mg tablet 0.125 mg PO BEDTIME PRN (Reason: restless leg syndrome) Rx Instructions: Patient uses if ropinirole is ineffective pantoprazole 40 mg tablet,delayed release (DR/EC) 40 mg PO DAILY PRN (Reason: Acid Reflux) oxycodone 5 mg/5 mL solution 5 mg PO Q8H PRN (Reason: severe pain) 10 Days Qty: 100 0RF Discharge Orders: Discharge Order (Routine); Ordered 05/30/24 Ordered By: Angelica Manning Diet: Advance to usual diet Activity on Discharge: As tolerated Stand Alone Forms: Patient Portal Discharge page Print Language: Khmer Care Plan Goals: Continue Eliquis 5 mg two times a day Continue Atorvastatin 80 mg at bedtime Follow with speech therapy as outpatient Health Concerns: Embolic stroke Plan of Treatment: Blood thinners, Statin and speech therapy Assessment: as above
--- NOTE | 2024-05-30 14:27 | MHC.CM.PN ---
Pt has been medically cleared for DC, she will go to [facility] today via BLS.
[2024-05-30 17:39] VITALS: BP 138/65; PULSE 64; RESP 18; TEMP 35.6; O2SAT 94
== END 2024-05-30 18:18 | disposition skilled nursing facility (03) | DRG 45 ==
LOC: HO.ED 16:28 → HO.EDOVER 17:29 → HO.IMC 23:18 → HO.EDOVER 05-26 02:24 → HO.IMC 05-26 13:17
PROVIDERS: Physician Assistant; Admitting Provider Family Medicine; Emergency Provider Emergency Medicine; Visit Provider Student in an Organized Health Care Education/Training Program
DX: I63.413 Cerebral infarction due to embolism of bilateral middle cerebral arteries (principal); E43 Unspecified severe protein-calorie malnutrition; R64 Cachexia; D68.69 Other thrombophilia; S32.039A Unspecified fracture of third lumbar vertebra, initial encounter for closed fracture; G81.94 Hemiplegia, unspecified affecting left nondominant side; R47.01 Aphasia; C32.9 Malignant neoplasm of larynx, unspecified; I95.9 Hypotension, unspecified; I69.351 Hemiplegia and hemiparesis following cerebral infarction affecting right dominant side; W19.XXXA Unspecified fall, initial encounter; T45.516A Underdosing of anticoagulants, initial encounter; I70.203 Unspecified atherosclerosis of native arteries of extremities, bilateral legs; I65.22 Occlusion and stenosis of left carotid artery; R29.719 NIHSS score 19; J44.9 Chronic obstructive pulmonary disease, unspecified; Z68.1 Body mass index [BMI] 19.9 or less, adult; F17.210 Nicotine dependence, cigarettes, uncomplicated; Z71.6 Tobacco abuse counseling; Z79.899 Other long term (current) drug therapy
CPT/HCPCS: 36415; 70450; 70496; 70498; 70551; 71045; 80048; 80061; 80307; 81001; 82947; 83036; 83735; 84100; 84484; 85025; 85027; 85610; 85730; 92526; 92610; 93005; 93306; 94640; 97110; 97116; 97163; 97167; 97530; 97535; 99285; J2405; Q9967

== ENCOUNTER → 2024-05-25 13:30 | Outpatient (BNV) | payer OTHER, SELFPAY | PROVIDERS: Admitting Provider Family Medicine; Emergency Provider Emergency Medicine; PCP Internal Medicine; Visit Provider Internal Medicine Cardiovascular Disease | DX: I45.81 Long QT syndrome (principal) | CPT/HCPCS: 93010 ==

== ENCOUNTER 2024-05-25 17:23 | Outpatient (BNV) | payer OTHER, SELFPAY | END 2024-05-27 07:00 | PROVIDERS: Admitting Provider Family Medicine; Emergency Provider Emergency Medicine; PCP Internal Medicine; Visit Provider Internal Medicine | DX: I51.0 Cardiac septal defect, acquired (principal); I34.81 Nonrheumatic mitral (valve) annulus calcification | CPT/HCPCS: 93306 ==

== ENCOUNTER → 2024-05-25 17:23 | Outpatient (BNV) | payer OTHER, SELFPAY | PROVIDERS: Admitting Provider Family Medicine; Emergency Provider Emergency Medicine; PCP Internal Medicine; Visit Provider Psychiatry & Neurology Neurology | DX: I63.413 Cerebral infarction due to embolism of bilateral middle cerebral arteries (principal) | CPT/HCPCS: 99222 ==

== ENCOUNTER → 2024-05-25 17:23 | Outpatient (BNV) | payer OTHER, SELFPAY | PROVIDERS: Admitting Provider Family Medicine; Emergency Provider Emergency Medicine; PCP Internal Medicine; Visit Provider Internal Medicine | DX: I63.9 Cerebral infarction, unspecified (principal) | CPT/HCPCS: 99222 ==

== ENCOUNTER → 2024-05-25 17:23 | Outpatient (BNV) | payer OTHER, SELFPAY | PROVIDERS: Admitting Provider Family Medicine; Emergency Provider Emergency Medicine; PCP Internal Medicine; Visit Provider Family Medicine | DX: I63.413 Cerebral infarction due to embolism of bilateral middle cerebral arteries (principal) | CPT/HCPCS: 99223; 99231; 99232; 99239 ==

== ENCOUNTER 2024-06-20 23:16 | Emergency (ER) | payer OTHER, SELFPAY ==
--- NOTE | ~2024-06-20 | XR_ITS ---
EXAMINATION: XR CHEST CLINICAL INFORMATION: Cough. COMPARISON: May 25, 2024 TECHNIQUE: Frontal view of the chest was obtained. FINDINGS: The patient is rotated. The cardiomediastinal silhouette is stable. There is no focal lung consolidation or evidence for significant pleural effusions. A Mediport is noted in a stable position. The bony structures are osteopenic. The soft tissues are unremarkable. XR/XR chest 1V IMPRESSION: No acute cardiopulmonary process. Electronically signed by: Bret Gurrola MD 06/20/2024 11:54 PM [facility]
[2024-06-20 23:33] VITALS: BP 133/59; BP 150/80; PULSE 68; PULSE 72; RESP 20; TEMP 36.6; O2SAT 96; O2SAT 98; BMI 15.8
--- NOTE | 2024-06-20 23:33 | ECG_ITS ---
Test Reason : SOB Blood Pressure : / mmHG Vent. Rate : 067 BPM Atrial Rate : 067 BPM P-R Int : 106 ms QRS Dur : 072 ms QT Int : 408 ms P-R-T Axes : 073 056 064 degrees QTc Int : 431 ms Sinus rhythm with short NC Possible Anterior infarct , age undetermined Abnormal ECG When compared with ECG of 25-MAY-2024 14:13, Premature supraventricular complexes are no longer Present Referred By: Domo Olmos Electronically Signed By:SHEYLA CANADA MD
--- NOTE | 2024-06-20 23:35 | ED.SOB ---
HPI - SOB/Dyspnea General Chief Complaint: Dyspnea Stated Complaint: sob,pain fom snf Time Seen by Provider: 06/20/24 23:22 Source: patient, EMS and old records reviewed Mode of arrival: EMS Limitations: no limitations History of Present Illness ED Provider: DR. Olmos HPI Narrative: 64-year-old female PMH significant for CVA with residual right-sided weakness, locally advanced laryngeal carcinoma s/p radiation/chemotherapy, malnutrition s/p G-tube COPD, tobacco abuse, PVD s/p fem-fem bypass came today from [facility] for shortness of breath, patient do not use supplemental oxygen O2 sat was 92% patient was given DuoNeb by EMS patient reported improvement, no neurological symptoms or complaint was reported by the patient. No fever, no chills, no coughing. Related Data Home Medications ?Medication ?Instructions ?Recorded ?Confirmed pantoprazole 40 mg tablet,delayed 40 mg PO DAILY PRN Acid Reflux 05/25/24 05/25/24 release pramipexole 0.125 mg tablet 0.125 mg PO BEDTIME PRN restless 05/25/24 05/25/24 leg syndrome ropinirole 1 mg tablet 1 mg PO BEDTIME 05/25/24 05/25/24 Previous Rx's ?Medication ?Instructions ?Recorded albuterol sulfate 1.25 mg/3 mL 2.5 mg (6 mL) inhalation Q4-6H PRN 09/26/23 solution for nebulization shortness of breath or wheezing 30 days #90 mL Symbicort 160 mcg-4.5 2 puff PO BID #10.2 grams 10/03/23 mcg/actuation HFA aerosol inhaler (budesonide-formoterol) Ventolin HFA 90 mcg/actuation 2 puff inhalation QID PRN for 05/07/24 aerosol inhaler (albuterol sulfate) wheezing #18 ea apixaban 5 mg tablet (Eliquis) 5 mg PO BID #180 tabs 05/30/24 atorvastatin 80 mg tablet 80 mg PO BEDTIME #90 tabs 05/30/24 oxycodone 5 mg/5 mL oral solution 5 mg (5 mL) PO Q8H PRN severe pain 05/30/24 10 days #100 mL Allergies Allergy/AdvReac Type Severity Reaction Status Date / Time aspirin AdvReac Mild Vomiting Verified 11/07/24 23:37 Review of Systems Review of Systems: All other systems are reviewed and are negative Constitutional: Reports as per HPI and Reports no additional constitutional complaints Eyes: Reports as per HPI and Reports no additional eye complaints Reports system reviewed and no additional complaints, except as documented Cardiovascular: Reports as per HPI and Reports no additional cardiovascular complaints Respiratory: Reports as per HPI and Reports no additional respiratory complaints Gastrointestinal: Reports as per HPI and Reports no additional gastrointestinal complaints Genitourinary: Reports no additional female genitourinary complaints Musculoskeletal: Reports no additional musculoskeletal complaints Skin/Breast: Reports system reviewed and no additional complaints, except as docu Psychiatric: Reports no additional psychiatric complaints Endocrine: Reports no additional endocrine complaints Hematologic/Lymphatic: Reports no additional hematologic/lymphatic complaints Allergic/Immunologic: Reports no additional allergic/immunologic complaints Reports system reviewed and no additional complaints, except as documented and Reports Abnormal speech present [facility] Past Medical History Medical History Embolic stroke Embolic cerebral infarction Multiple cerebral infarctions Pulmonary nodule 1 cm or greater in diameter Squamous cell carcinoma of epiglottis Weight loss, unintentional Skin lesion of back Immunization declined Fracture of proximal end of fibula Contusion of leg, right Vaccination declined by patient Cervical lymphadenopathy Carotid stenosis, right Microcytic hypochromic anemia Left cervical lymphadenopathy Bilateral carotid bruits Smoker Idiopathic hypercalciuria Thyroid nodule Hx of angiography Vitamin D deficiency Goiter History of tachycardia GERD (gastroesophageal reflux disease) Gastritis Duodenitis Pyloric ulcer History of alcohol abuse Myopia of both eyes Papanicolaou smear declined Mammogram declined Smoker unmotivated to quit Restless leg syndrome Aortoiliac occlusive disease Tubular adenoma of colon Chronic Helicobacter pylori gastritis COPD (chronic obstructive pulmonary disease) Fibromyalgia Peripheral vascular disease Osteoporosis Surgical History Hx of coronary angiogram History of removal of skin mole Hx of colonoscopy History of surgery on lower extremity Hx of foot surgery History of surgical removal of lesion (~10/28/21) History of lung biopsy (~04/2021) History of exploratory thoracotomy (~04/2018) History of tonsillectomy History of endarterectomy (~05/2020) History of ankle surgery (~11/2011) History of myringotomy History of appendectomy History of tubal ligation Family History Family History Father Substance use disorder Mother Osteoporosis Substance use disorder Brother Substance use disorder Sister Substance use disorder Lung cancer Sister Substance use disorder Brother Substance use disorder Social History Social History Household Members: None Housing: Other Housing Other:: mobile home Are you a primary day care home mother to a significant other at home: No Do you presently have visiting nurse or other home services: No Unable to assess alcohol history related to: Unknown Alcohol intake: former Patient Tobacco Use Status: Current everyday Tobacco user Tobacco use type: Cigarette Cigarette Packs Per Day: 1 Years Smoked: 50+ Smoked in Last 30 Days: No e-Cigarette/Vaping Use: Never Used Second Hand Smoke Exposure: Yes Use of substances other than those prescribed or required for medical reasons: No Advance Directives: Yes Advance Directives on File: Yes Advance Directives Date on File: 12/12/23 Do you have a plan to hurt others: No Plan service: No Current occupational status: disabled Current occupation: rt handed Current occupational exposures/hazards: No Cognitive needs: No Hearing needs: No Vision needs: Yes Physical Exam Vital Signs: Vital Signs: Last Vital Signs Temp 98.4 F 06/21/24 02:55 Pulse 74 06/21/24 02:55 Resp 16 06/21/24 02:55 BP 146/63 H 06/21/24 02:55 Pulse Ox 96 06/21/24 02:55 O2 Del Method Room Air 06/21/24 02:55 BMI result Body Mass Index 15.8 Vital signs have been reviewed and appear to be correct. Blood pressure elevated. Heart rate normal. Respiratory rate normal. Temperature normal. Oxygen saturation normal. Appearance: Alert. Oriented X3. No acute distress. Head: Normal external exam. Normocephalic. Atraumatic. No Olivier signs noted. No raccoon eyes noted Eyes: PERRLA. EOMI. Conjunctiva and sclera normal. Eyelids normal. ENT: TM's Normal. Pharynx normal. Uvula midline. Moist mucous membranes. No trismus noted. No drooling noted. No muffled voice noted. Neck: Normal inspection. Neck supple. FROM. No adenopathy. Thyroid Normal. No meningeal signs. No neck mass noted. CVS: Normal heart rate and rhythm. Heart sound normal. No murmurs noted. Pulses normal throughout. Respiratory: No respiratory distress. Painless inspiration. Decreased breathing sounds bilaterally. No wheezes/rales/rhonchi noted. Chest nontender. No accessory muscle usage noted or decreased air movement noted. Abdomen: Soft and nontender. Bowel sounds normal in all 4 quadrants. No distention noted. No organomegaly noted. No visible injury noted. Back: No CVA tenderness. Full range of motion noted. Skin: Skin warm and dry. Normal skin color. Normal skin turgor. No rashes/lesions/lacerations noted. Extremities: No lower extremity edema. Extremities exhibit normal range of motion. Extremities nontender. Neuro: Oriented X 3. Cranial nerve exam: II-XII are grossly intact No motor deficit. No sensory deficit. Reflexes normal. Course Reevaluation(s) Reevaluation #1: COPD exacerbation, patient received bronchodilator, Solu-Medrol, magnesium in the emergency department feels better stable vital signs O2 sat is 96% with RR is 16, patient feels much better will transfer back to the [facility]. Time: 05:10 Medications Administered Discontinued Medications Generic Name Dose Route Start Last Admin Trade Name Freq PRN Reason Stop Dose Admin Albuterol Sulfate 7.5 mg/ 10 mg 06/20/24 23:43 06/21/24 00:07 Albuterol Sulfate 2.5 mg INHALE 06/20/24 23:44 10 mg ONCE ONE Administration Magnesium Sulfate 2 gm in 50 mls @ 25 mls/hr 06/20/24 23:32 06/21/24 01:48 Magnesium Sulfate/H2o IV 06/21/24 01:31 Infused ONCE ONE Infusion Methylprednisolone Sodium Succinate 125 mg 06/20/24 23:32 06/21/24 00:05 Methylprednisolone Sod Succ 125 Mg/2 Ml Vial IVPUSH 06/20/24 23:33 125 mg ONCE ONE Administration Medical Decision Making Differential Diagnosis Differential Diagnoses: The differential diagnosis associated with the presentation includes (COPD exacerbation, pneumonia, pneumothorax, pleural effusion) Admission/Observation Consideration of admission/observation: Escalation of care including admission/observation considered Consult Healthcare Provider Management of the patient was discussed with: Hospitalist (Laura Cedeno) Lab Data MDM Lab Attestation statement: I reviewed the patient's lab results. 06/20/24 23:59 06/20/24 23:59 Labs: Lab Results 06/20/24 Range/Units 23:59 WBC 6.0 (4.8-10.8) X10*3/uL RBC 3.57 L (4.20-5.50) X10*6/uL Hgb 8.8 L (12.0-16.0) g/dl Hct 30.1 L (37.0-47.0) % MCV 84.3 (80.0-98.0) fL MCH 24.6 L (27.0-33.0) pg MCHC 29.2 L (31.0-35.0) g/dl RDW 24.0 H (11.0-16.0) % Plt Count 196 (160-400) X10*3/uL MPV 8.6 L (9.4-12.3) fL Immature Gran % (Auto) 0.5 H (0.0-0.4) % Neut % (Auto) 81.7 H (45-73) % Lymph % (Auto) 8.5 L (20-40) % [place] % (Auto) 7.3 (2-11) % Eos % (Auto) 1.8 (0-4) % Baso % (Auto) 0.2 (0-2) % Lymph # (Auto) 0.5 L (1.2-4.9) X10*3/uL [place] # (Auto) 0.4 (0.1-1.2) X10*3/uL Eos # (Auto) 0.1 (0.0-0.4) X10*3/uL Baso # (Auto) 0.0 (0.0-0.2) X10*3/uL Abs Immat Gran (auto) 0.03 (0.00-0.03) X10*3/uL Absolute Neuts (auto) 4.9 (2.0-8.3) x10*3/uL Absolute Nucleated RBC 0.000 (0.0-0.012) X10*3/uL Nucleated RBC % (auto) 0.0 (0.0-0.2) /100WBC PT 16.1 H D (10.9-12.4) SEC INR 1.4 H (0.9-1.1) Sodium 139 (135-145) mmol/L Potassium 4.0 (3.3-5.1) mmol/L Chloride 106 (96-108) mmol/L Carbon Dioxide 26 (22-29) mmol/L Anion Gap 11 L (12-20) BUN 12 (9-16) mg/dL Creatinine 0.53 (0.5-1.4) mg/dL Estim Creat Clear Calc 66.0 Estimated GFR > 60 Random Glucose 108 (60-115) mg/dL Lactic Acid 1.3 (0.5-2.0) mmol/L Calcium 9.0 (8.4-10.2) mg/dL Total Bilirubin 0.2 (0.0-1.0) mg/dL Direct Bilirubin < 0.2 (0.0-0.5) mg/dL AST 22 (5-31) U/L ALT 15 (0-31) U/L Alkaline Phosphatase 117 (39-117) U/L Troponin I High Sens < 2.7 (<3.5-17.0) ng/L B-Natriuretic Peptide 70 (<100) pg/mL Total Protein 6.6 (6.5-8.0) g/dL Albumin 4.0 (3.5-5.0) g/dL Lipase 13 (8-78) U/L Influenza Type A (PCR) NEGATIVE (Negative) Influenza Type B (PCR) NEGATIVE (Negative) RSV RNA Qual (PCR) NEGATIVE (Negative) SARS-CoV-2 RNA (RT-PCR) NEGATIVE (Negative) Independent Interpretation I performed an independent interpretation of an: Plain X-Ray (Chest: No acute cardiopulmonary process.) Radiology Impression Discussion of test interpretation with radiology: I have reviewed the radiologist's reading. Discharge Plan Discharge Clinical Impression: COPD (chronic obstructive pulmonary disease), Acute exacerbation of chronic obstructive airways disease Patient Disposition: Xfer [facility] Instructions: COPD (Chronic Obstructive Pulmonary Disease) (ED) Prescriptions: No Action albuterol sulfate 1.25 mg/3 mL solution for nebulization 2.5 mg inhalation Q4-6H PRN (Reason: shortness of breath or wheezing) 30 Days Qty: 90 3RF budesonide-formoterol [Symbicort] 160-4.5 mcg/actuation HFA aerosol inhaler 2 puff PO BID Qty: 10.2 5RF albuterol sulfate [Ventolin HFA] 90 mcg/actuation HFA aerosol inhaler 2 puff inhalation QID PRN (Reason: for wheezing) Qty: 18 0RF ropinirole 1 mg tablet 1 mg PO BEDTIME pramipexole 0.125 mg tablet 0.125 mg PO BEDTIME PRN (Reason: restless leg syndrome) Rx Instructions: Patient uses if ropinirole is ineffective pantoprazole 40 mg tablet,delayed release (DR/EC) 40 mg PO DAILY PRN (Reason: Acid Reflux) Eliquis 5 mg Tablet 5 mg PO BID Qty: 180 0RF atorvastatin 80 mg Tablet 80 mg PO BEDTIME Qty: 90 0RF oxycodone 5 mg/5 mL solution 5 mg PO Q8H PRN (Reason: severe pain) 10 Days Qty: 100 0RF Print Language: Lebanese
[2024-06-21] MEDS: methylPREDNISolone Sod Succ 125 MG/2 ML VIAL IVPUSH (00:05)
[2024-06-21] MEDS: Magnesium Sulfate/H2O 2 GM/50 ML PIGGYBACK IV (00:05)
[2024-06-21] MEDS: Albuterol Sulfate 7.5 MG, Albuterol Sulfate (0.083%) 2.5 MG 10 MG INHALE (00:07)
[2024-06-21 00:13] LABS: Basophils Percent Auto 0.2 % (0-2); Eosinophils Absolute Auto 0.1 X10*3/uL (0.0-0.4); Eosinophils Percent Auto 1.8 % (0-4); Hematocrit 30.1 % (37.0-47.0); Hemoglobin 8.8 g/dl (12.0-16.0); Imm Gran Abs Auto 0.03 X10*3/uL (0.00-0.03); Imm Gran Pct Auto 0.5 % (0.0-0.4); Lymphocytes Absolute Auto 0.5 X10*3/uL (1.2-4.9); Lymphocytes Percent Auto 8.5 % (20-40); MANUAL DIFF FLAG NO; Mean Corpuscular HGB Conc 29.2 g/dl (31.0-35.0); Mean Corpuscular Hemoglobin 24.6 pg (27.0-33.0); Mean Corpuscular Volume 84.3 fL (80.0-98.0); Mean Platelet Volume 8.6 fL (9.4-12.3); Monocytes Absolute Auto 0.4 X10*3/uL (0.1-1.2); Monocytes Percent Auto 7.3 % (2-11); Neutrophils Absolute Auto 4.9 x10*3/uL (2.0-8.3); Neutrophils Percent Auto 81.7 % (45-73); Platelet Count 196 X10*3/uL (160-400); Red Blood Count 3.57 X10*6/uL (4.20-5.50)
[2024-06-21 00:19] LABS: INTERNATIONAL NORM RATIO 1.4 (0.9-1.1); Prothrombin Time 16.1 SEC (10.9-12.4)
[2024-06-21 00:28] LABS: Lactic Acid 1.3 mmol/L (0.5-2.0)
[2024-06-21 00:29] LABS: Alanine Aminotransferase 15 U/L (0-31); Alkaline Phosphatase 117 U/L (39-117); Anion Gap 11 (12-20); Aspartate Amino Transferase 22 U/L (5-31); Bilirubin Direct < 0.2 mg/dL (0.0-0.5); Bilirubin Total 0.2 mg/dL (0.0-1.0); Blood Urea Nitrogen 12 mg/dL (9-16); Carbon Dioxide 26 mmol/L (22-29); Chloride 106 mmol/L (96-108); Estimated Glomerular Filt Rate > 60; Glucose Random 108 mg/dL (60-115); Lipase 13 U/L (8-78); Sodium 139 mmol/L (135-145); Total Protein 6.6 g/dL (6.5-8.0)
[2024-06-21 00:32] LABS: B Type Natriuretic Peptide 70 pg/mL (<100)
[2024-06-21 00:36] LABS: Troponin-I High Sensitivity < 2.7 ng/L (<3.5-17.0)
[2024-06-21 00:50] LABS: Influenza A PCR NEGATIVE (Negative); Influenza B PCR NEGATIVE (Negative); Resp Syncy Virus RNA Qual PCR NEGATIVE (Negative); SARS COV2 PCR INHOUSE NEGATIVE (Negative)
[2024-06-21 02:55] VITALS: BP 146/63; PULSE 74; RESP 16; TEMP 36.9; O2SAT 96
[2024-06-21 06:13] VITALS: BP 132/52; PULSE 65; RESP 13; TEMP 36.6; O2SAT 96
--- NOTE | 2024-06-21 06:31 | PC.NURSE ---
report called to Nestor GIVENS, at [facility], all questions answered
--- NOTE | 2024-06-21 07:00 | PC.NURSE ---
report given to Rupinder JIMENEZ, pt is waiting on ride
[2024-06-21 07:06] VITALS: BP 133/52; PULSE 65; RESP 13; TEMP 36.6; O2SAT 96
== END 2024-06-21 07:07 | disposition skilled nursing facility (03) ==
PROVIDERS: Emergency Provider Emergency Medicine
DX: J44.1 Chronic obstructive pulmonary disease with (acute) exacerbation (principal); Z03.818 Encounter for observation for suspected exposure to other biological agents ruled out; R06.02 Shortness of breath; F17.210 Nicotine dependence, cigarettes, uncomplicated; Z79.01 Long term (current) use of anticoagulants; Z79.02 Long term (current) use of antithrombotics/antiplatelets
CPT/HCPCS: 0241U; 36415; 71045; 80048; 80076; 83605; 83690; 83880; 84484; 85025; 85610; 87040; 93005; 96365; 96366; 96375; 99284; J2919; J3475

== ENCOUNTER → 2024-06-20 23:33 | Outpatient (BNV) | payer OTHER, SELFPAY | PROVIDERS: Emergency Provider Emergency Medicine; Visit Provider Internal Medicine Cardiovascular Disease | DX: R94.31 Abnormal electrocardiogram [ECG] [EKG] (principal) | CPT/HCPCS: 93010 ==

== ENCOUNTER 2024-06-29 09:02 | Inpatient (IN) | payer OTHER, SELFPAY ==
[2024-06-29] VITALS (10 sets, daily range): BP systolic 119–170; BP diastolic 55–76; PULSE 70–97; RESP 11–18; TEMP 36.4–36.8; O2SAT 94–98; BMI 16.2
--- NOTE | ~2024-06-29 | CT_ITS ---
EXAMINATION: CT HEAD WITHOUT CONTRAST CLINICAL INFORMATION: Headache status-post fall. COMPARISON: CT head dated 05/25/2024. TECHNIQUE: Contiguous axial imaging was performed from the skull base to vertex without intravenous administration of contrast. Multiplanar reformatted images are submitted. This CT examination was performed using dose optimization techniques as appropriate, variously including the following: *Automated exposure control *Adjustment of mA and/or kV according to patient size (this includes techniques or standardized protocols for targeted exams where dose is matched to indication/reason for exam; i.e. extremities or head) *Use of iterative reconstruction technique DLP: 1221 mGy-cm (head and cervical spine) FINDINGS: There is no acute intracranial hemorrhage or evidence of territorial infarction. No abnormal mass effect or midline shift is seen. Obrien to white matter differentiation is well preserved. There is moderately severe patchy low attenuation change in the periventricular white matter spaces. There is right parieto-occipital encephalomalacia. A chronic lacunar infarction is seen within the right basal ganglia. The ventricles are normal in size. No extra-axial fluid collections are identified. The calvarium and scalp soft tissues are normal. The middle ear cavity and mastoid air cells are clear. The visualized paranasal sinuses are clear. CT/CT head/brain wo IV con IMPRESSION: 1. No acute intracranial pathology. 2. There is moderately severe patchy low attenuation change in the periventricular white matter spaces, commonly associated with chronic microangiopathy. 3. An old infarction is again noted within the right parieto-occipital region. 4. There is a chronic lacunar infarction within the right basal ganglia. EXAMINATION: CT CERVICAL SPINE WITHOUT CONTRAST CLINICAL INFORMATION: Neck pain status-post fall. COMPARISON: None available. TECHNIQUE: Contiguous axial imaging was performed through the cervical spine without intravenous administration of contrast. Multiplanar reformatted images are submitted. This CT examination was performed using dose optimization techniques as appropriate, variously including the following: *Automated exposure control *Adjustment of mA and/or kV according to patient size (this includes techniques or standardized protocols for targeted exams where dose is matched to indication/reason for exam; i.e. extremities or head) *Use of iterative reconstruction technique DLP: As above FINDINGS: Vertebral body heights and alignment are normal. There is mild posterior disc space narrowing at C3-4 and C4-5. At C6-7, there is moderate disc space narrowing, with a 2 mm anterolisthesis. There is a small osteophyte arising from the anterior margin of the C6 lower endplate, possibly acute. The remaining disc spaces are well-maintained. The posterior elements are intact. There is multi-level cervical facet arthropathy. There is no prevertebral soft tissue swelling. The dens is intact and shows a small sclerotic, well marginated benign bone island. There are emphysematous changes, and there is right apical scar/subsegmental atelectasis, incompletely covered in the [id number]. IMPRESSION: 1. A small avulsion fragment, possibly acute, arises from the anterior margin of the C6 lower endplate. 2. There is multi-level cervical degenerative disc disease, most pronounced at C6-7, where degenerative change is moderate. 3. There is multi-level facet arthropathy. 4. There are emphysematous changes, and there is incompletely covered right apical scar/subsegmental atelectasis. Fleischner guidelines were followed. Electronically signed by: Pete Eduardo MD 06/29/2024 01:59 PM [facility]
--- NOTE | ~2024-06-29 | CT_ITS ---
EXAMINATION: CT CHEST, ABDOMEN AND PELVIS WITH CONTRAST CLINICAL INFORMATION: Fall. Chest and abdominal trauma. COMPARISON: Most recent CT abdomen/pelvis dated 10/24/[address] chest dated 11/09/2022. TECHNIQUE: Contiguous axial thin section helical images of the chest, abdomen and pelvis were performed following the administration of oral contrast and 85 mL of intravenous Omnipaque 350. The data set was reformatted in the coronal and sagittal planes and reviewed on an independent workstation. This CT examination was performed using dose optimization techniques as appropriate, variously including the following: *Automated exposure control *Adjustment of mA and/or kV according to patient size (this includes techniques or standardized protocols for targeted exams where dose is matched to indication/reason for exam; i.e. extremities or head) *Use of iterative reconstruction technique DLP: 1221 mGy-cm. FINDINGS: LUNGS: Emphysematous changes are redemonstrated. Redemonstration of an irregular, spiculated opacity within the right upper lobe with associated calcifications, unchanged when compared to the prior examination. Additional previously seen pulmonary nodules are redemonstrated, not significantly changed. The largest is within the left lower lobe measuring up to 0.8 cm. No new pulmonary nodule or mass. No new focal airspace consolidation. The central airways are patent. PLEURA: No pleural effusion or pneumothorax. No pleural mass or thickening. MEDIASTINUM: No cardiomegaly. No significant pericardial effusion. No thoracic aortic dilatation or dissection. Atherosclerotic calcifications. No significant mediastinal or hilar lymphadenopathy. CORONARY ARTERY CALCIFICATION: Present. CHEST WALL/AXILLA: No lymphadenopathy. Right chest wall port with the catheter tip in the distal SVC. THYROID: Unremarkable LIVER, GALLBLADDER, AND BILIARY TREE: Normal size, shape, and attenuation. No focal hepatic lesion. No intra or extrahepatic biliary ductal dilatation. The gallbladder is unremarkable with no evidence of radiopaque gallstones, gallbladder wall thickening, or obvious pericholecystic inflammatory changes. PANCREAS: Unremarkable. SPLEEN: Unremarkable. ADRENAL GLANDS: Unremarkable. KIDNEYS AND URETERS: Normal size, shape, and attenuation. No hydronephrosis, hydroureter, or calculi. No perinephric stranding. BLADDER: Unremarkable. GASTROINTESTINAL TRACT: No small- or large-bowel obstruction. Qdlt-yx-brosdgln stool within the colon. Nondistention of the descending colon with mild circumferential wall thickening and minimal adjacent stranding which could be due to underdistention or represent minimal colitis. No extraluminal air or abscess formation to suggest perforation. Appendix not seen. No right lower quadrant inflammatory change to suggest acute appendicitis. PERITONEAL CAVITY: No intra-abdominal free air or free fluid. No intra-abdominal mass or organized fluid collection/abscess formation. ABDOMINAL WALL: No significant abdominal wall hernia. LYMPH NODES: No significant lymphadenopathy. VASCULAR: Contrast opacifies the abdominal aorta and its branch vessels. No abdominal aortic dilatation or dissection. Severe atherosclerotic calcifications. The IVC is unremarkable. Redemonstration of a femorofemoral bypass graft. PELVIC VISCERA: The uterus and adnexa are unremarkable. OSSEOUS STRUCTURES: Chronic lateral left fifth rib fracture. No acute rib fracture. Sclerosis within the left symphysis pubis which could indicate a healed fracture. No acute pelvic fracture. Redemonstration of a superior endplate compression deformity at L3, unchanged. No concerning lytic or blastic osseous lesion. CT/CT chest w IV con IMPRESSION: 1. No evidence of acute visceral or osseous injury. 2. Emphysematous changes are redemonstrated. Redemonstration of an irregular, spiculated opacity within the right upper lobe with associated calcifications, not significantly changed. Additional pulmonary nodules are unchanged. No new pulmonary nodule, mass, or airspace consolidation. 3. Wbov-ef-beuyukgo stool within the colon. Mild circumferential wall thickening of the descending colon with minimal adjacent stranding which could be due to underdistention or represent minimal colitis. 4. No new intra-abdominal mass, lymphadenopathy, or ascites. Electronically signed by: Seth Payne MD 06/29/2024 02:31 PM [facility] [place]
--- NOTE | ~2024-06-29 | XR_ITS ---
EXAMINATION: XR KNEE, RIGHT CLINICAL INFORMATION: Right knee pain. COMPARISON: Right tibia and fibular radiographs dated 07/16/2021. TECHNIQUE: AP and lateral views of the right knee. FINDINGS: No acute fracture or dislocation. No joint space narrowing or marginal osteophytes. No osseous erosion. No joint effusion. Atherosclerotic calcifications. XR/XR knee RT 2V IMPRESSION: No acute osseous abnormality. Electronically signed by: Seth Payne MD 06/29/2024 10:21 AM [facility]
--- NOTE | ~2024-06-29 | XR_ITS ---
EXAMINATION: XR HAND/WRIST, RIGHT CLINICAL INFORMATION: Fall. Pain. COMPARISON: None available. TECHNIQUE: Oblique and lateral views of the right hand and wrist. FINDINGS: Comminuted and displaced fractures through the distal radial and ulnar metaphyses with apex volar angulation measuring approximately 48 degrees. There is dorsal displacement of the dominant fracture fragments measuring approximately 0.5 cm in AP dimension with mild cortical overlap. Small fracture fragments along the periphery of the dominant fracture lines. Surrounding soft tissue swelling. XR/XR hand wrist RT IMPRESSION: Comminuted and displaced fractures through the distal radial and ulnar metaphyses with apex volar angulation. Electronically signed by: Seth Payne MD 06/29/2024 10:32 AM [facility]
--- NOTE | ~2024-06-29 | CT_ITS ---
EXAMINATION: CT HEAD WITHOUT CONTRAST CLINICAL INFORMATION: Headache status-post fall. COMPARISON: CT head dated 05/25/2024. TECHNIQUE: Contiguous axial imaging was performed from the skull base to vertex without intravenous administration of contrast. Multiplanar reformatted images are submitted. This CT examination was performed using dose optimization techniques as appropriate, variously including the following: *Automated exposure control *Adjustment of mA and/or kV according to patient size (this includes techniques or standardized protocols for targeted exams where dose is matched to indication/reason for exam; i.e. extremities or head) *Use of iterative reconstruction technique DLP: 1221 mGy-cm (head and cervical spine) FINDINGS: There is no acute intracranial hemorrhage or evidence of territorial infarction. No abnormal mass effect or midline shift is seen. Obrien to white matter differentiation is well preserved. There is moderately severe patchy low attenuation change in the periventricular white matter spaces. There is right parieto-occipital encephalomalacia. A chronic lacunar infarction is seen within the right basal ganglia. The ventricles are normal in size. No extra-axial fluid collections are identified. The calvarium and scalp soft tissues are normal. The middle ear cavity and mastoid air cells are clear. The visualized paranasal sinuses are clear. CT/CT cervical spine wo IV con IMPRESSION: 1. No acute intracranial pathology. 2. There is moderately severe patchy low attenuation change in the periventricular white matter spaces, commonly associated with chronic microangiopathy. 3. An old infarction is again noted within the right parieto-occipital region. 4. There is a chronic lacunar infarction within the right basal ganglia. EXAMINATION: CT CERVICAL SPINE WITHOUT CONTRAST CLINICAL INFORMATION: Neck pain status-post fall. COMPARISON: None available. TECHNIQUE: Contiguous axial imaging was performed through the cervical spine without intravenous administration of contrast. Multiplanar reformatted images are submitted. This CT examination was performed using dose optimization techniques as appropriate, variously including the following: *Automated exposure control *Adjustment of mA and/or kV according to patient size (this includes techniques or standardized protocols for targeted exams where dose is matched to indication/reason for exam; i.e. extremities or head) *Use of iterative reconstruction technique DLP: As above FINDINGS: Vertebral body heights and alignment are normal. There is mild posterior disc space narrowing at C3-4 and C4-5. At C6-7, there is moderate disc space narrowing, with a 2 mm anterolisthesis. There is a small osteophyte arising from the anterior margin of the C6 lower endplate, possibly acute. The remaining disc spaces are well-maintained. The posterior elements are intact. There is multi-level cervical facet arthropathy. There is no prevertebral soft tissue swelling. The dens is intact and shows a small sclerotic, well marginated benign bone island. There are emphysematous changes, and there is right apical scar/subsegmental atelectasis, incompletely covered in the vswbz-nn-kooc. IMPRESSION: 1. A small avulsion fragment, possibly acute, arises from the anterior margin of the C6 lower endplate. 2. There is multi-level cervical degenerative disc disease, most pronounced at C6-7, where degenerative change is moderate. 3. There is multi-level facet arthropathy. 4. There are emphysematous changes, and there is incompletely covered right apical scar/subsegmental atelectasis. Fleischner guidelines were followed. Electronically signed by: Pete Eduardo MD 06/29/2024 01:59 PM [facility]
--- NOTE | ~2024-06-29 | XR_ITS ---
EXAMINATION: XR WRIST, RIGHT CLINICAL INFORMATION: Fall, pain COMPARISON: Hand/wrist radiograph June 29, 2024 at 10:07 AM TECHNIQUE: PA, lateral, and oblique views of the right wrist. FINDINGS: Overlying fiberglass cast. Significant interval improvement in alignment of the comminuted distal radius and ulnar fractures with mild residual volar angulation. Bones are diffusely osteopenic. First carpometacarpal joint osteoarthritis. XR/XR wrist RT 2V IMPRESSION: Improved alignment of the fiberglass casted distal radius and ulnar fractures. Electronically signed by: Jhonny Carvajal DO 06/29/2024 06:59 PM [facility]
--- NOTE | ~2024-06-29 | XR_ITS ---
EXAMINATION: XR ELBOW, RIGHT CLINICAL INFORMATION: Elbow pain. COMPARISON: None available. TECHNIQUE: AP and lateral views of the right elbow. FINDINGS: No displaced fracture. Evaluation somewhat limited due to hyperflexion. No joint space narrowing or marginal osteophytes. No osseous erosion. No abnormal soft tissue calcification. Posterior soft tissue swelling. XR/XR elbow RT 2V IMPRESSION: Posterior soft tissue swelling without displaced fracture. Evaluation somewhat limited due to hyperflexion. Electronically signed by: Seth Payne MD 06/29/2024 10:32 AM [facility]
--- NOTE | 2024-06-29 09:12 | ED.GENADULT ---
HPI - General Adult General Chief complaint: Fall Stated [facility] SN[facility] PER EMS Time Seen by Provider: 06/29/24 09:11 Source: patient and EMS Mode of arrival: EMS Limitations: other (Poor historian) History of Present Illness ED Provider: VASILE Keys HPI narrative: This is a 64-year-old female history of CVA right-sided residual weakness, carotid stenosis, pulmonary nodules, tubular adenoma of the colon, restless legs syndrome, COPD, peripheral vascular disease, osteoporosis, fibromyalgia on chronic anticoagulation present to the emergency department with complaints of right wrist pain status post mechanical fall. Patient reports she tripped, fell forward, tried to brace herself with her arm, since then has been having right wrist/hand pain worse with movement better at rest. She was placed in a splint by EMS. Denies head strike and loss of consciousness. Denies any other symptoms at this time. Denies preceding symptoms to fall such as chest pain, shortness of breath, dizziness, weakness. Patient is on Eliquis. Denies chest pain, shortness of breath, nausea, vomiting, abdominal pain, headache, vision changes, dizziness and weakness Related Data Home Medications ?Medication ?Instructions ?Recorded ?Confirmed pantoprazole 40 mg tablet,delayed 40 mg PO DAILY PRN Acid Reflux 05/25/24 06/29/24 release pramipexole 0.125 mg tablet 0.125 mg PO BEDTIME PRN restless 05/25/24 06/29/24 leg syndrome ropinirole 1 mg tablet 2 mg PO BEDTIME 05/25/24 06/29/24 acetaminophen 325 mg tablet 650 mg PO Q6H PRN Pain 06/29/24 06/29/24 ascorbic acid (vitamin C) 500 mg 500 mg PO DAILY 06/29/24 06/29/24 tablet (Vitamin C) ferrous sulfate 325 mg (65 mg 325 mg PO DAILY 06/29/24 06/29/24 iron) tablet menthol 5 % topical patch (Icy Hot 1 patch topical BID 06/29/24 06/29/24 (menthol)) Previous Rx's ?Medication ?Instructions ?Recorded albuterol sulfate 1.25 mg/3 mL 2.5 mg (6 mL) inhalation Q4-6H PRN 09/26/23 solution for nebulization shortness of breath or wheezing 30 days #90 mL Symbicort 160 mcg-4.5 2 puff PO BID #10.2 grams 10/03/23 mcg/actuation HFA aerosol inhaler (budesonide-formoterol) Ventolin HFA 90 mcg/actuation 2 puff inhalation QID PRN for 05/07/24 aerosol inhaler (albuterol sulfate) wheezing #18 ea apixaban 5 mg tablet (Eliquis) 5 mg PO BID #180 tabs 05/30/24 atorvastatin 80 mg tablet 80 mg PO BEDTIME #90 tabs 05/30/24 oxycodone 5 mg/5 mL oral solution 5 mg (5 mL) PO Q8H PRN severe pain 05/30/24 10 days #100 mL Allergies Allergy/AdvReac Type Severity Reaction Status Date / Time aspirin AdvReac Mild Vomiting Verified 06/29/24 09:14 Review of Systems Review of Systems: Yes all other systems are reviewed and are negative PMFSH Past Medical History Attestation statement: The following information was validated with the patient. Source: old records reviewed and nursing notes reviewed Medical History Embolic stroke Embolic cerebral infarction Multiple cerebral infarctions Pulmonary nodule 1 cm or greater in diameter Squamous cell carcinoma of epiglottis Weight loss, unintentional Skin lesion of back Immunization declined Fracture of proximal end of fibula Contusion of leg, right Vaccination declined by patient Cervical lymphadenopathy Carotid stenosis, right Microcytic hypochromic anemia Left cervical lymphadenopathy Bilateral carotid bruits Smoker Idiopathic hypercalciuria Thyroid nodule Hx of angiography Vitamin D deficiency Goiter History of tachycardia GERD (gastroesophageal reflux disease) Gastritis Duodenitis Pyloric ulcer History of alcohol abuse Myopia of both eyes Papanicolaou smear declined Mammogram declined Smoker unmotivated to quit Restless leg syndrome Aortoiliac occlusive disease Tubular adenoma of colon Chronic Helicobacter pylori gastritis COPD (chronic obstructive pulmonary disease) Fibromyalgia Peripheral vascular disease Osteoporosis Surgical History Hx of coronary angiogram History of removal of skin mole Hx of colonoscopy History of surgery on lower extremity Hx of foot surgery History of surgical removal of lesion (~10/28/21) History of lung biopsy (~04/2021) History of exploratory thoracotomy (~04/2018) History of tonsillectomy History of endarterectomy (~05/2020) History of ankle surgery (~11/2011) History of myringotomy History of appendectomy History of tubal ligation Family History Family History Father Substance use disorder Mother Osteoporosis Substance use disorder Brother Substance use disorder Sister Substance use disorder Lung cancer Sister Substance use disorder Brother Substance use disorder Social History Social History Household Members: None Housing: Other Housing Other:: mobile home Are you a primary customer care agent to a significant other at home: No Do you presently have visiting nurse or other home services: No Unable to assess alcohol history related to: Unknown Alcohol intake: former Patient Tobacco Use Status: Current everyday Tobacco user Tobacco use type: Cigarette Cigarette Packs Per Day: 1 Years Smoked: 50+ e-Cigarette/Vaping Use: Never Used Second Hand Smoke Exposure: Yes Advance Directives: Yes Advance Directives on File: Yes Advance Directives Date on File: 12/12/23 Do you have a plan to hurt others: No Plan service: No Current occupational status: disabled Current occupation: rt handed Current occupational exposures/hazards: No Cognitive needs: No Hearing needs: No Vision needs: Yes Physical Exam ED Vital Signs: Vital Signs - 24 hr 06/29/24 09:10 06/29/24 11:43 06/29/24 14:46 Temperature 98.0 F 98.3 F 98.1 F Pulse Rate 71 79 82 Respiratory Rate 18 16 16 Blood Pressure 170/67 H 119/55 L 142/69 H Pulse Oximetry 97 94 95 Oxygen Delivery Method Room Air Nasal Cannula Oxygen Flow Rate 2 BMI result Body Mass Index 16.2 vss Appearance: Alert.? Oriented X3.? No acute distress.? Head: Normocephalic, atraumatic, no step-offs or deformities Eyes: Pupils equal, round and reactive to light.? Extraocular movements intact, pain-free. Neck: Normal inspection.? Neck supple.? CVS: Normal heart rate and rhythm.? Pulses normal.? Respiratory: No respiratory distress.? Breath sounds normal.? Abdomen: Soft and nontender.? Skin: Skin warm and dry.? Normal skin color.? Normal skin turgor.? Extremities: No lower extremity edema.? No calf ttp. 5/5 strength to left upper extremities, and left lower extremity, difficult to assess strength to right upper extremity secondary to wrist pain. There is an evident deformity to the right wrist. Normal distal sensation to bilateral upper extremities. Normal capillary refill less than 2 seconds. 2+ radial pulses equal bilateral. Right lower extremity with 4/5 strength. Neuro: Oriented X 3.? No motor deficit.? No sensory deficit. CN 2-12 intact . Normal [id number]. Course Reevaluation(s) Reevaluation #1: X-ray of right knee no acute osseous abnormality. X-ray of right hand and wrist with comminuted and displaced fractures throughout the distal radial and ulnar metaphysis with apex volar angulation. X-ray of right elbow posterior soft tissue swelling without displaced fracture. Time: 10:36 Reevaluation #2: CT head with no acute intracranial findings. Old infarcts noted. This is known and patient's history. Cervical spine C2 with a small avulsion fragment possible acute no midline tenderness however, full range of motion and neck. No neurological findings that are new. She has slight right-sided weakness at baseline from previous CVA. Time: 14:24 Reevaluation #3: Will need to proceed with conscious sedation for right wrist reduction patient is in too much pain to undergo a hematoma block. She also has some contracture right lower extremity that would make this very difficult. Will give propofol. I did go over moderate sedation risks versus benefits and had her sign paperwork. Sedation and analgesia CQ I checklist gone over. Crash cart at the bedside, Dr. Lopez at the bedside, as well as respiratory. Time: 14:50 Additional Reevaluation(s): When we went to go do conscious sedation we took down the dressing patient had on the lateral aspect of her wrist, there is noted to be a 1 cm puncture wound that appears deep to the lateral aspect. 1619 Ortho did see patient concerns for open fracture, will admit to medicine for IV antibiotics, close reduction in the ED will be done with conscious sedation, Eliquis is to be held. Will be added for surgery on Monday NPO after midnight on Monday. Will speak to the medical team. Medications Administered Discontinued Medications Generic Name Dose Route Start Last Admin Trade Name Freq PRN Reason Stop Dose Admin Hydromorphone HCl 1 mg 06/29/24 13:38 06/29/24 14:58 Hydromorphone Hcl 1 Mg/Ml Syringe IVPUSH 06/29/24 13:39 1 mg ONCE ONE Administration Protocol Iohexol 100 ml 06/29/24 12:20 06/29/24 12:20 Iohexol 350 Mg/Ml 100 Ml Infus..Btl IV 06/29/24 12:21 85 ml ONCE ONE Administration Morphine Sulfate 4 mg 06/29/24 09:59 06/29/24 11:28 Morphine Sulfate 4 Mg/Ml Cartridge IVPUSH 06/29/24 10:00 4 mg ONCE ONE Administration Protocol Medical Decision Making Medical Decision Making [facility] Narrative: 0914 64 year old female presents s/p trip and fall now having R wrist pain. Pe- No lower extremity edema.? No calf ttp. 5/5 strength to left upper extremities, and left lower extremity, difficult to assess strength to right upper extremity secondary to wrist pain. There is an evident deformity to the right wrist. Normal distal sensation to bilateral upper extremities. Normal capillary refill less than 2 seconds. 2+ radial pulses equal bilateral. Right lower extremity with 4/5 strength. History and physical exam concerning for right-sided hand/wrist fracture possible dislocation. No signs of neurovascular compromise or acute threat to limb. Low suspicion for stroke, posterior stroke right-sided weakness likely remnant from old CVA. Will rule out intracranial hemorrhage and trauma to chest, abdomen pelvis as patient is on anticoagulation. Will also rule out metabolic derangements and dysrhythmia. Plan labs, imaging, urine Differential Diagnosis Differential Diagnoses: The differential diagnosis associated with the presentation includes (History and physical exam concerning for right-sided hand/wrist fracture possible dislocation. No signs of neurovascular compromise or acute threat to limb. Low suspicion for stroke, posterior stroke right-sided weakness likely remnant from old CVA. Will rule out intracranial hemorrhage and traum) Admission/Observation Consideration of admission/observation: Escalation of care including admission/observation considered Lab Data [facility] Lab Attestation statement: I reviewed the patient's lab results. 06/29/24 11:20 06/29/24 11:20 Labs: Lab Results 06/29/24 Range/Units 11:20 WBC 12.1 H (4.8-10.8) X10*3/uL RBC 4.04 L (4.20-5.50) X10*6/uL Hgb 10.2 L (12.0-16.0) g/dl Hct 34.9 L (37.0-47.0) % MCV 86.4 (80.0-98.0) fL MCH 25.2 L (27.0-33.0) pg MCHC 29.2 L (31.0-35.0) g/dl RDW 23.8 H (11.0-16.0) % Plt Count 210 (160-400) X10*3/uL MPV 8.6 L (9.4-12.3) fL Immature Gran % (Auto) 0.5 H (0.0-0.4) % Neut % (Auto) 91.0 H (45-73) % Lymph % (Auto) 3.0 L (20-40) % [place] % (Auto) 5.1 (2-11) % Eos % (Auto) 0.2 (0-4) % Baso % (Auto) 0.2 (0-2) % Lymph # (Auto) 0.4 L (1.2-4.9) X10*3/uL [place] # (Auto) 0.6 (0.1-1.2) X10*3/uL Eos # (Auto) 0.0 (0.0-0.4) X10*3/uL Baso # (Auto) 0.0 (0.0-0.2) X10*3/uL Abs Immat Gran (auto) 0.06 H (0.00-0.03) X10*3/uL Absolute Neuts (auto) 11.0 H (2.0-8.3) x10*3/uL Absolute Nucleated RBC 0.000 (0.0-0.012) X10*3/uL Nucleated RBC % (auto) 0.0 (0.0-0.2) /100WBC Smear Tech's Comments VERIFIED PT 17.6 H (10.9-12.4) SEC INR 1.5 H (0.9-1.1) Sodium 137 (135-145) mmol/L Potassium 4.4 (3.3-5.1) mmol/L Chloride 106 (96-108) mmol/L Carbon Dioxide 23 (22-29) mmol/L Anion Gap 12 (12-20) BUN 9 (9-16) mg/dL Creatinine 0.52 (0.5-1.4) mg/dL Estim Creat Clear Calc 69.0 Estimated GFR > 60 Random Glucose 95 (60-115) mg/dL Calcium 9.6 D (8.4-10.2) mg/dL Magnesium 2.0 (1.6-2.6) mg/dL Total Bilirubin 0.3 (0.0-1.0) mg/dL AST 35 H (5-31) U/L ALT 24 (0-31) U/L Alkaline Phosphatase 122 H (39-117) U/L Troponin I High Sens < 2.7 (<3.5-17.0) ng/L Total Protein 6.9 (6.5-8.0) g/dL Albumin 4.1 (3.5-5.0) g/dL Independent Interpretation I performed an independent interpretation of an: EKG, Plain X-Ray (XR/XR knee RT 2V IMPRESSION: No acute osseous abnormality.XR/XR hand wrist RT IMPRESSION: Comminuted and displaced fractures through the distal radial and ulnar metaphyses with apex volar angulation.) and CT Scan (1. A small avulsion fragment, possibly acute, arises from the anterior margin of the C6 lower endplate. 2. There is multi-level cervical degenerative disc disease, most pronounced at C6-7, where degenerative change is moderate. 3. There is multi-level facet arthropathy. 4. There are emphyse) Interpretation: XR/XR elbow RT 2V IMPRESSION: Posterior soft tissue swelling without displaced fracture. Evaluation somewhat limited due to hyperflexion. Critical Care Time Critical Care Time Critical Care Time: Yes Total Critical Care Time: 40 Attestation: I attest to this time spent taking care of the patient, obtaining history, physical, reviewing labs, imaging, treatment of patients condition +/- specialist/hospitalist consult Discharge Plan Discharge Clinical Impression: Fall on same level from tripping, Fracture of wrist, Open fracture Patient Disposition: Admitted As Inpatient Prescriptions: No Action albuterol sulfate 1.25 mg/3 mL solution for nebulization 2.5 mg inhalation Q4-6H PRN (Reason: shortness of breath or wheezing) 30 Days Qty: 90 3RF budesonide-formoterol [Symbicort] 160-4.5 mcg/actuation HFA aerosol inhaler 2 puff PO BID Qty: 10.2 5RF albuterol sulfate [Ventolin HFA] 90 mcg/actuation HFA aerosol inhaler 2 puff inhalation QID PRN (Reason: for wheezing) Qty: 18 0RF ropinirole 1 mg tablet 2 mg PO BEDTIME pramipexole 0.125 mg tablet 0.125 mg PO BEDTIME PRN (Reason: restless leg syndrome) Rx Instructions: Patient uses if ropinirole is ineffective pantoprazole 40 mg tablet,delayed release (DR/EC) 40 mg PO DAILY PRN (Reason: Acid Reflux) Eliquis 5 mg Tablet 5 mg PO BID Qty: 180 0RF atorvastatin 80 mg Tablet 80 mg PO BEDTIME Qty: 90 0RF oxycodone 5 mg/5 mL solution 5 mg PO Q8H PRN (Reason: severe pain) 10 Days Qty: 100 0RF acetaminophen 325 mg Tablet 650 mg PO Q6H PRN (Reason: Pain) ascorbic acid (vitamin C) [Vitamin C] 500 mg Tablet 500 mg PO DAILY ferrous sulfate 325 mg (65 mg iron) Tablet 325 mg PO DAILY Icy Hot (menthol) 5 % Adhesive Patch,Medicated 1 patch TOPICAL BID Rx Instructions: left knee Print Language: Azerbaijani
--- NOTE | 2024-06-29 09:15 | ECG_ITS ---
Test Reason : FALL Blood Pressure : / mmHG Vent. Rate : 080 BPM Atrial Rate : 080 BPM P-R Int : 094 ms QRS Dur : 056 ms QT Int : 394 ms P-R-T Axes : 004 051 069 degrees QTc Int : 454 ms Sinus rhythm with short MT Nonspecific ST and T wave abnormality Abnormal ECG When compared with ECG of 20-JUN-2024 23:52, No significant change was found Referred By: Luis Felipe Keys Electronically Signed By:Harry Estrada
--- NOTE | 2024-06-29 10:48 | PHA.MEDREC ---
Pharmacy Consult ? Medication Reconciliation Pharmacy has completed the medication reconciliation. List from [facility]
[2024-06-29] MEDS: Morphine Sulfate 4 MG/ML CARTRIDGE IVPUSH (11:28)
[2024-06-29 11:29] LABS: Basophils Percent Auto 0.2 % (0-2); Eosinophils Percent Auto 0.2 % (0-4); Hematocrit 34.9 % (37.0-47.0); Hemoglobin 10.2 g/dl (12.0-16.0); Imm Gran Abs Auto 0.06 X10*3/uL (0.00-0.03); Imm Gran Pct Auto 0.5 % (0.0-0.4); Lymphocytes Absolute Auto 0.4 X10*3/uL (1.2-4.9); MANUAL DIFF FLAG SCAN; Mean Corpuscular HGB Conc 29.2 g/dl (31.0-35.0); Mean Corpuscular Hemoglobin 25.2 pg (27.0-33.0); Mean Corpuscular Volume 86.4 fL (80.0-98.0); Mean Platelet Volume 8.6 fL (9.4-12.3); Monocytes Absolute Auto 0.6 X10*3/uL (0.1-1.2); Monocytes Percent Auto 5.1 % (2-11); Platelet Count 210 X10*3/uL (160-400); Red Blood Count 4.04 X10*6/uL (4.20-5.50); Red Cell Distribution Width 23.8 % (11.0-16.0); SCAN SMEAR FLAG 1; White Blood Count 12.1 X10*3/uL (4.8-10.8)
[2024-06-29 11:37] LABS: INTERNATIONAL NORM RATIO 1.5 (0.9-1.1); Prothrombin Time 17.6 SEC (10.9-12.4)
[2024-06-29 11:48] LABS: Alanine Aminotransferase 24 U/L (0-31); Albumin Level 4.1 g/dL (3.5-5.0); Alkaline Phosphatase 122 U/L (39-117); Anion Gap 12 (12-20); Aspartate Amino Transferase 35 U/L (5-31); Bilirubin Total 0.3 mg/dL (0.0-1.0); Blood Urea Nitrogen 9 mg/dL (9-16); Calcium 9.6 mg/dL (8.4-10.2); Carbon Dioxide 23 mmol/L (22-29); Chloride 106 mmol/L (96-108); Estimated Glomerular Filt Rate > 60; Glucose Random 95 mg/dL (60-115); Potassium 4.4 mmol/L (3.3-5.1); Sodium 137 mmol/L (135-145); Total Protein 6.9 g/dL (6.5-8.0)
[2024-06-29 11:58] LABS: SLIDE REVIEW VERIFIED
[2024-06-29 12:00] LABS: Troponin-I High Sensitivity < 2.7 ng/L (<3.5-17.0)
[2024-06-29] MEDS: iohexoL 350 MG/ML 100 ML INFUS..BTL IV (12:20)
[2024-06-29] MEDS: HYDROmorphone HCl 1 MG/ML SYRINGE IVPUSH ×2 (14:58→18:24)
--- NOTE | 2024-06-29 15:08 | PC.NURSE ---
Dr. Lopez and Alma at bedside, question of an open fracture, Ortho to be called before reduction attempted.
--- NOTE | 2024-06-29 16:06 | P.CONOP_ITS ---
History of Present Illness HPI Consult date: 06/29/24 Chief complaint: [facility] FALL,R WRIST/KNEE PAIN,FROM SNF PER EMS Narrative: Patient is a 64-year-old female who is status post CVA on Eliquis who is currently in the emergency department for evaluation of right distal radius and distal ulnar fractures after a fall at the SNF she resides at earlier this morning. While in the ED, patient was found to have significantly displaced distal radius and distal ulnar fractures, and there was noted to be a wound on the ulnar aspect of the patient's right wrist. Initially, wound was thought to only be a skin tear, but upon further inspection appear to be significantly deeper. Patient is unable to give any history verbally at this time. No other acute complaints or concerns at this time. [facility] Past Medical History Medical History Embolic stroke Embolic cerebral infarction Multiple cerebral infarctions Pulmonary nodule 1 cm or greater in diameter Squamous cell carcinoma of epiglottis Weight loss, unintentional Skin lesion of back Immunization declined Fracture of proximal end of fibula Contusion of leg, right Vaccination declined by patient Cervical lymphadenopathy Carotid stenosis, right Microcytic hypochromic anemia Left cervical lymphadenopathy Bilateral carotid bruits Smoker Idiopathic hypercalciuria Thyroid nodule Hx of angiography Vitamin D deficiency Goiter History of tachycardia GERD (gastroesophageal reflux disease) Gastritis Duodenitis Pyloric ulcer History of alcohol abuse Myopia of both eyes Papanicolaou smear declined Mammogram declined Smoker unmotivated to quit Restless leg syndrome Aortoiliac occlusive disease Tubular adenoma of colon Chronic Helicobacter pylori gastritis COPD (chronic obstructive pulmonary disease) Fibromyalgia Peripheral vascular disease Osteoporosis Family History Family History Father Substance use disorder Mother Osteoporosis Substance use disorder Brother Substance use disorder Sister Substance use disorder Lung cancer Sister Substance use disorder Brother Substance use disorder Surgical History Surgical History Hx of coronary angiogram History of removal of skin mole Hx of colonoscopy History of surgery on lower extremity Hx of foot surgery History of surgical removal of lesion (~10/28/21) History of lung biopsy (~04/2021) History of exploratory thoracotomy (~04/2018) History of tonsillectomy History of endarterectomy (~05/2020) History of ankle surgery (~11/2011) History of myringotomy History of appendectomy History of tubal ligation Social History Social History Household Members: None Housing: Other Housing Other:: mobile home Are you a primary family member caretaker to a significant other at home: No Do you presently have visiting nurse or other home services: No Unable to assess alcohol history related to: Unknown Alcohol intake: former Patient Tobacco Use Status: Current everyday Tobacco user Tobacco use type: Cigarette Cigarette Packs Per Day: 1 Years Smoked: 50+ Smoked in Last 30 Days: Yes e-Cigarette/Vaping Use: Never Used Second Hand Smoke Exposure: Yes Use of substances other than those prescribed or required for medical reasons: No Advance Directives: Yes Advance Directives on File: Yes Advance Directives Date on File: 12/12/23 Do you have a plan to hurt others: No Plan service: No Current occupational status: disabled Current occupation: rt handed Current occupational exposures/hazards: No Cognitive needs: No Hearing needs: No Vision needs: Yes Meds Allergies Allergy/AdvReac Type Severity Reaction Status Date / Time aspirin AdvReac Mild Vomiting Verified 06/29/24 09:14 Home Medications ?Medication ?Instructions ?Recorded ?Confirmed ?Last Taken ?Type pantoprazole 40 mg tablet,delayed 40 mg PO DAILY PRN Acid Reflux 05/25/24 06/29/24 Unknown History release pramipexole 0.125 mg tablet 0.125 mg PO BEDTIME PRN restless 05/25/24 06/29/24 Unknown History leg syndrome ropinirole 1 mg tablet 2 mg PO BEDTIME 05/25/24 06/29/24 Unknown History acetaminophen 325 mg tablet 650 mg PO Q6H PRN Pain 06/29/24 06/29/24 Unknown History ascorbic acid (vitamin C) 500 mg 500 mg PO DAILY 06/29/24 06/29/24 Unknown History tablet (Vitamin C) ferrous sulfate 325 mg (65 mg 325 mg PO DAILY 06/29/24 06/29/24 Unknown History iron) tablet menthol 5 % topical patch (Icy Hot 1 patch topical BID 06/29/24 06/29/24 Unknown History (menthol)) Physical Exam 2 Vital Signs: Vital Signs: Last Vital Signs Temp 98.1 F 06/29/24 14:46 Pulse 82 06/29/24 14:46 Resp 16 06/29/24 14:46 BP 142/69 H 06/29/24 14:46 Pulse Ox 95 06/29/24 14:46 O2 Del Method Nasal Cannula 06/29/24 11:43 O2 Flow Rate 2 06/29/24 11:43 Oxygen Flow Rate 4 06/29/24 14:46 BMI result Body Mass Index 16.2 Extrem: Other: On inspection, there is a significant visible deformity of the patient's right wrist, with apex volar angulation at the level of the fracture There is noted to be a wound on the ulnar aspect of the patient's left wrist, appears to be like a skin tear on initial inspection but upon further inspection does seem deeper. There is also noted to be ecchymosis on the ulnar aspect of the right wrist at the level of the fracture, with small amounts of bleeding noted from the wound in this area No erythema or purulent drainage noted Patient does report significant tenderness to very gentle palpation about the incision site Distal sensation intact Capillary refill brisk Results Labs 06/29/24 11:20 06/29/24 11:20 Labs: Abnormal lab results 06/29/24 Range/Units 11:20 WBC 12.1 H (4.8-10.8) X10*3/uL RBC 4.04 L (4.20-5.50) X10*6/uL Hgb 10.2 L (12.0-16.0) g/dl Hct 34.9 L (37.0-47.0) % MCH 25.2 L (27.0-33.0) pg MCHC 29.2 L (31.0-35.0) g/dl RDW 23.8 H (11.0-16.0) % MPV 8.6 L (9.4-12.3) fL Immature Gran % (Auto) 0.5 H (0.0-0.4) % Neut % (Auto) 91.0 H (45-73) % Lymph % (Auto) 3.0 L (20-40) % Lymph # (Auto) 0.4 L (1.2-4.9) X10*3/uL Abs Immat Gran (auto) 0.06 H (0.00-0.03) X10*3/uL Absolute Neuts (auto) 11.0 H (2.0-8.3) x10*3/uL PT 17.6 H (10.9-12.4) SEC INR 1.5 H (0.9-1.1) AST 35 H (5-31) U/L Alkaline Phosphatase 122 H (39-117) U/L H & H 06/29/24 Range/Units 11:20 Hgb 10.2 L (12.0-16.0) g/dl Hct 34.9 L (37.0-47.0) % Coagulation 06/29/24 Range/Units 11:20 INR 1.5 H (0.9-1.1) All other labs normal. Diagnostic results Wrist/Hand x-ray: report reviewed and image reviewed (X-rays obtained in the ED today and independently reviewed by me, Ravi Jenkins PA-C, demonstrate displaced and comminuted fractures of both the right distal radius and distal ulna, with approximately 50 degrees of angulation, apex volar. ) Assessment and Plan Plan 1. Procedures Date of Service Date of Service: 06/29/24
[2024-06-29] MEDS: ceFAZolin Sodium 1 GM VIAL IVPUSH (16:32)
[2024-06-29] MEDS: propofoL 200 MG/20 ML VIAL 50 MG IVPUSH (17:54)
--- NOTE | 2024-06-29 18:39 | PM.HPOR ---
History of Present Illness History of Present Illness Date of Service: 06/29/24 Chief complaint: MECH FALL,R WRIST/KNEE PAIN,FROM SNF PER EMS Narrative: Soraida Felix is a 64 year old female who is status post CVA on Eliquis who is currently in the emergency department for evaluation of right distal radius and distal ulnar fractures after a fall at the SNF she resides at earlier this morning. While in the ED, patient was found to have significantly displaced distal radius and distal ulnar fractures, and there was noted to be a wound on the ulnar aspect of the patient's right wrist. Initially, wound was thought to only be a skin tear, but upon further inspection appear to be significantly deeper. Patient is unable to give any history verbally at this time. No other acute complaints or concerns at this time. Review of Systems Review of Systems: Yes all other systems are reviewed and are negative [facility] Past Medical History Medical History Embolic stroke Embolic cerebral infarction Multiple cerebral infarctions Pulmonary nodule 1 cm or greater in diameter Squamous cell carcinoma of epiglottis Weight loss, unintentional Skin lesion of back Immunization declined Fracture of proximal end of fibula Contusion of leg, right Vaccination declined by patient Cervical lymphadenopathy Carotid stenosis, right Microcytic hypochromic anemia Left cervical lymphadenopathy Bilateral carotid bruits Smoker Idiopathic hypercalciuria Thyroid nodule Hx of angiography Vitamin D deficiency Goiter History of tachycardia GERD (gastroesophageal reflux disease) Gastritis Duodenitis Pyloric ulcer History of alcohol abuse Myopia of both eyes Papanicolaou smear declined Mammogram declined Smoker unmotivated to quit Restless leg syndrome Aortoiliac occlusive disease Tubular adenoma of colon Chronic Helicobacter pylori gastritis COPD (chronic obstructive pulmonary disease) Fibromyalgia Peripheral vascular disease Osteoporosis Family History Family History Father Substance use disorder Mother Osteoporosis Substance use disorder Brother Substance use disorder Sister Substance use disorder Lung cancer Sister Substance use disorder Brother Substance use disorder Surgical History Surgical History Hx of coronary angiogram History of removal of skin mole Hx of colonoscopy History of surgery on lower extremity Hx of foot surgery History of surgical removal of lesion (~10/28/21) History of lung biopsy (~04/2021) History of exploratory thoracotomy (~04/2018) History of tonsillectomy History of endarterectomy (~05/2020) History of ankle surgery (~11/2011) History of myringotomy History of appendectomy History of tubal ligation Social History Social History Household Members: None Housing: Other Housing Other:: mobile home Are you a primary day care teacher to a significant other at home: No Do you presently have visiting nurse or other home services: No Unable to assess alcohol history related to: Unknown Alcohol intake: former Patient Tobacco Use Status: Current everyday Tobacco user Tobacco use type: Cigarette Cigarette Packs Per Day: 1 Years Smoked: 50+ Smoked in Last 30 Days: Yes e-Cigarette/Vaping Use: Never Used Second Hand Smoke Exposure: Yes Use of substances other than those prescribed or required for medical reasons: No Advance Directives: Yes Advance Directives on File: Yes Advance Directives Date on File: 12/12/23 Do you have a plan to hurt others: No Plan service: No Current occupational status: disabled Current occupation: rt handed Current occupational exposures/hazards: No Cognitive needs: No Hearing needs: No Vision needs: Yes Meds Allergies Allergy/AdvReac Type Severity Reaction Status Date / Time aspirin AdvReac Mild Vomiting Verified 06/29/24 09:14 Home Medications ?Medication ?Instructions ?Recorded ?Confirmed ?Last Taken ?Type pantoprazole 40 mg tablet,delayed 40 mg PO DAILY PRN Acid Reflux 05/25/24 06/29/24 Unknown History release pramipexole 0.125 mg tablet 0.125 mg PO BEDTIME PRN restless 05/25/24 06/29/24 Unknown History leg syndrome ropinirole 1 mg tablet 2 mg PO BEDTIME 05/25/24 06/29/24 Unknown History acetaminophen 325 mg tablet 650 mg PO Q6H PRN Pain 06/29/24 06/29/24 Unknown History ascorbic acid (vitamin C) 500 mg 500 mg PO DAILY 06/29/24 06/29/24 Unknown History tablet (Vitamin C) ferrous sulfate 325 mg (65 mg 325 mg PO DAILY 06/29/24 06/29/24 Unknown History iron) tablet menthol 5 % topical patch (Icy Hot 1 patch topical BID 06/29/24 06/29/24 Unknown History (menthol)) Physical Exam Vital Signs: Vital Signs: Last Vital Signs Temp 98 F 06/29/24 18:13 Pulse 85 06/29/24 18:13 Resp 14 06/29/24 18:24 BP 143/65 H 06/29/24 18:13 Pulse Ox 94 06/29/24 18:13 O2 Del Method Nasal Cannula 06/29/24 18:04 O2 Flow Rate 2 06/29/24 18:04 Oxygen Flow Rate 1 06/29/24 18:13 BMI result Body Mass Index 16.2 Extrem: Other: On inspection, there is a very significant deformity of the patient's right wrist to inspection There is noted to be approximately 1.5-2 cm wound noted on the ulnar aspect of the patient's right wrist with overlying skin flap There is some dark red blood noted to be draining from this wound this time Is also ecchymosis surrounding the wound Patient reports tenderness to very gentle palpation about the fracture site Distal sensation intact Capillary refill brisk Results Labs 06/29/24 11:20 06/29/24 11:20 Labs: Abnormal lab results 06/29/24 Range/Units 11:20 WBC 12.1 H (4.8-10.8) X10*3/uL RBC 4.04 L (4.20-5.50) X10*6/uL Hgb 10.2 L (12.0-16.0) g/dl Hct 34.9 L (37.0-47.0) % MCH 25.2 L (27.0-33.0) pg MCHC 29.2 L (31.0-35.0) g/dl RDW 23.8 H (11.0-16.0) % MPV 8.6 L (9.4-12.3) fL Immature Gran % (Auto) 0.5 H (0.0-0.4) % Neut % (Auto) 91.0 H (45-73) % Lymph % (Auto) 3.0 L (20-40) % Lymph # (Auto) 0.4 L (1.2-4.9) X10*3/uL Abs Immat Gran (auto) 0.06 H (0.00-0.03) X10*3/uL Absolute Neuts (auto) 11.0 H (2.0-8.3) x10*3/uL PT 17.6 H (10.9-12.4) SEC INR 1.5 H (0.9-1.1) AST 35 H (5-31) U/L Alkaline Phosphatase 122 H (39-117) U/L H & H 06/29/24 Range/Units 11:20 Hgb 10.2 L (12.0-16.0) g/dl Hct 34.9 L (37.0-47.0) % Coagulation 06/29/24 Range/Units 11:20 INR 1.5 H (0.9-1.1) All other labs normal. Assessment and Plan (1) Open fracture: Status: Acute (2) Fracture of wrist: Qualifiers: Encounter type: initial encounter Laterality: right Status: Acute Plan 1. Right distal radius and distal ulnar fractures, displaced, with overlying wound concerning for open fracture Date of injury 06/29/2024 Patient should be admitted to the hospital for IV antibiotics and observation in the setting of potential open fracture, to assess the need for any potential surgical intervention Patient will be to orthopedic service Hospitalist consult for antibiotic recommendations and any other medical management required Fracture reduced in the ED, patient placed in splint Patient requires admission to the hospital for evaluation of potential open fracture and pending any potential surgical intervention Hold anticoagulation at this time pending decision on potential surgical intervention Quality Stroke Does the patient have a stroke diagnosis?: Yes Reason for No Anti-thrombotic by Day Two: Contraindicated (Holding for potential surgical intervention) VTE Prior VTE?: No VTE Risk Level:: Medical - moderate - high VTE Device Contraindication: N/A - Device Ordered VTE Drug Contraindication: Treatment Not Indicated (Anticoagulant held for potential surgical intervention) Procedures Date of Service Date of Service: 06/29/24
--- NOTE | 2024-06-29 20:39 | P.CONHOSP_ITS ---
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 Patient presented to the hospital from [facility] with right wrist pain s/p mechanical fall. Patient initially reported that she tripped and fell forward, attempting to brace herself with an outstretched hand. Workup in the ED showed comminuted and displaced fractures throughout the distal radial and ulnar metaphysis with apex volar angulation of right wrist. All other imaging, including CT of head, cervical spine, and chest negative for acute abnormality. X-rays of right knee and right elbow negative for acute fracture of subluxation. Patient was admitted to the hospital under orthopedic services. Hospitalist consult for medical management. Patient seen and evaluated at bedside where she complains of right wrist pain as well as pain in her knees bilaterally. Otherwise denies any acute medical complaint. No shortness a breath or difficulty breathing. Denies chest pain/pressure, palpitations. No fever, chills, nausea,, abdominal pain. Review of Systems 2 Review of Systems: Negative except for that which is stated in the [facility] Medical History Embolic stroke Embolic cerebral infarction Multiple cerebral infarctions Pulmonary nodule 1 cm or greater in diameter Squamous cell carcinoma of epiglottis Weight loss, unintentional Skin lesion of back Immunization declined Fracture of proximal end of fibula Contusion of leg, right Vaccination declined by patient Cervical lymphadenopathy Carotid stenosis, right Microcytic hypochromic anemia Left cervical lymphadenopathy Bilateral carotid bruits Smoker Idiopathic hypercalciuria Thyroid nodule Hx of angiography Vitamin D deficiency Goiter History of tachycardia GERD (gastroesophageal reflux disease) Gastritis Duodenitis Pyloric ulcer History of alcohol abuse Myopia of both eyes Papanicolaou smear declined Mammogram declined Smoker unmotivated to quit Restless leg syndrome Aortoiliac occlusive disease Tubular adenoma of colon Chronic Helicobacter pylori gastritis COPD (chronic obstructive pulmonary disease) Fibromyalgia Peripheral vascular disease Osteoporosis Family History Father Substance use disorder Mother Osteoporosis Substance use disorder Brother Substance use disorder Sister Substance use disorder Lung cancer Sister Substance use disorder Brother Substance use disorder Surgical History Hx of coronary angiogram History of removal of skin mole Hx of colonoscopy History of surgery on lower extremity Hx of foot surgery History of surgical removal of lesion (~10/28/21) History of lung biopsy (~04/2021) History of exploratory thoracotomy (~04/2018) History of tonsillectomy History of endarterectomy (~05/2020) History of ankle surgery (~11/2011) History of myringotomy History of appendectomy History of tubal ligation Social History Household Members: None Housing: Other Housing Other:: mobile home Are you a primary home care manager rn to a significant other at home: No Do you presently have visiting nurse or other home services: No Unable to assess alcohol history related to: Unknown Alcohol intake: former Patient Tobacco Use Status: Current everyday Tobacco user Tobacco use type: Cigarette Cigarette Packs Per Day: 1 Years Smoked: 50+ Smoked in Last 30 Days: Yes e-Cigarette/Vaping Use: Never Used Second Hand Smoke Exposure: Yes Use of substances other than those prescribed or required for medical reasons: No Advance Directives: Yes Advance Directives on File: Yes Advance Directives Date on File: 12/12/23 Do you have a plan to hurt others: No Plan service: No Current occupational status: disabled Current occupation: rt handed Current occupational exposures/hazards: No Cognitive needs: No Hearing needs: No Vision needs: Yes Meds Allergies Allergy/AdvReac Type Severity Reaction Status Date / Time aspirin AdvReac Mild Vomiting Verified 06/29/24 09:14 Active Medications: Current Medications Acetaminophen (Acetaminophen 325 Mg Tablet) 650 mg PO Q6H PRN PRN Reason: Pain, Mild (Pain Scale 1-3), fever or headache Albuterol Sulfate (Albuterol Sulfate (0.042%) 1.25 Mg/3 Ml Vial.Last) 2.5 mg INHALE Q4H PRN PRN Reason: shortness of breath or wheezing Albuterol Sulfate (Albuterol Sulfate 90 Mcg 8 Gm Inhaler) 2 puff INHALE QID PRN PRN Reason: for wheezing Atorvastatin Calcium (Atorvastatin Calcium 80 Mg Tablet) 80 mg PO BEDTIME [facility] Docusate Sodium (Docusate Sodium 100 Mg Capsule) 100 mg PO BID [facility] Ferrous Sulfate (Ferrous Sulfate 324 Mg Tablet.) 324 mg PO DAILY [facility] Fluticasone/Vilanterol (Fluticasone/Vilanterol 200/25 Blst.W.Dev) 1 puff INHALE RDAILY [facility] Hydromorphone HCl (Hydromorphone Hcl 0.5 Mg/0.5 Ml Syringe) 0.5 mg IVPUSH Q4H PRN; Protocol PRN Reason: Pain, Severe (Pain Scale 7-10) Lactated Ringer's (Lr) 1,000 mls @ 100 mls/hr IVCONT .Q10H [facility] Cefazolin Sodium/Dextrose (Ancef) 2 gm in 50 mls @ 100 mls/hr IV Q8H [facility] Vancomycin HCl 1,000 mg/ (Sodium Chloride) 270 mls @ 270 mls/hr IV ONCE ONE Stop: 06/29/24 21:29 Vancomycin HCl 750 mg/ Sodium (Chloride) 265 mls @ 265 mls/hr IV Q12H [facility] Omeprazole (Omeprazole 20 Mg Capsule.) 20 mg PO DAILY PRN PRN Reason: Acid Reflux Oxycodone HCl (Oxycodone Hcl Immed Release 5 Mg Tablet) 5 mg PO Q4H PRN PRN Reason: Pain, Moderate(Pain Scale 4-6) Pharmacy Consult (Consult Rx Vancomycin Dosing) 1 each MISCELLANE DAILY PRN PRN Reason: Consult order Pramipexole Dihydrochloride (Pramipexole Di-Hcl 0.125 Mg Tablet) 0.125 mg PO BEDTIME PRN PRN Reason: restless leg syndrome Ropinirole HCl (Ropinirole Hcl 2 Mg Tablet) 2 mg PO BEDTIME [facility] Sodium Chloride (0.9 % Sodium Chloride Flush 3 Ml Syringe) 3 ml IVFLUSH QSHIFT [facility] Home Medications ?Medication ?Instructions ?Recorded ?Confirmed ?Last Taken ?Type pantoprazole 40 mg tablet,delayed 40 mg PO DAILY PRN Acid Reflux 05/25/24 06/29/24 Unknown History release pramipexole 0.125 mg tablet 0.125 mg PO BEDTIME PRN restless 05/25/24 06/29/24 Unknown History leg syndrome ropinirole 1 mg tablet 2 mg PO BEDTIME 05/25/24 06/29/24 Unknown History acetaminophen 325 mg tablet 650 mg PO Q6H PRN Pain 06/29/24 06/29/24 Unknown History ascorbic acid (vitamin C) 500 mg 500 mg PO DAILY 06/29/24 06/29/24 Unknown History tablet (Vitamin C) ferrous sulfate 325 mg (65 mg 325 mg PO DAILY 06/29/24 06/29/24 Unknown History iron) tablet menthol 5 % topical patch (Icy Hot 1 patch topical BID 06/29/24 06/29/24 Unknown History (menthol)) Physical Exam 2 Vital Signs and Narrative: Vital Signs: Last Vital Signs Temp 98 F 06/29/24 18:13 Pulse 85 06/29/24 18:13 Resp 14 06/29/24 18:24 BP 143/65 H 06/29/24 18:13 Pulse Ox 94 06/29/24 18:13 O2 Del Method Nasal Cannula 06/29/24 18:04 O2 Flow Rate 2 06/29/24 18:04 Oxygen Flow Rate 1 06/29/24 18:13 BMI result Body Mass Index 16.2 General: AOx3, weak, frail, cachectic, in no acute distress. Speaks in a barely audible whisper Resp: CTA bilaterally CVS: S1, S2, RRR GI: +BS, NT, no distention Skin: Warm, dry Neuro: Cranial nerves II-XII grossly intact bilaterally. Motor grossly intact bilaterally, though global weakness noted, R>L Extremities: No edema. Right hand and wrist in soft splint. Psych: Appropriate affect Results Labs 06/29/24 11:20 06/29/24 11:20 Labs: Laboratory Results - last 24 hr 06/29/24 11:20 MCV 86.4 MCH 25.2 L MCHC 29.2 L RDW 23.8 H Plt Count 210 MPV 8.6 L Immature Gran % (Auto) 0.5 H Neut % (Auto) 91.0 H Lymph % (Auto) 3.0 L [place] % (Auto) 5.1 Eos % (Auto) 0.2 Baso % (Auto) 0.2 Lymph # (Auto) 0.4 L [place] # (Auto) 0.6 Eos # (Auto) 0.0 Baso # (Auto) 0.0 Abs Immat Gran (auto) 0.06 H Absolute Neuts (auto) 11.0 H Absolute Nucleated RBC 0.000 Nucleated RBC % (auto) 0.0 Smear Tech's Comments VERIFIED PT 17.6 H INR 1.5 H Anion Gap 12 Estim Creat Clear Calc 69.0 Estimated GFR > 60 Random Glucose 95 Calcium 9.6 D Magnesium 2.0 Total Bilirubin 0.3 AST 35 H ALT 24 Alkaline Phosphatase 122 H Troponin I High Sens < 2.7 Total Protein 6.9 Albumin 4.1 Imaging Radiologist's Impressions: Impressions Abdomen/Pelvis CT 06/29/24 09:09 IMPRESSION: 1. No evidence of acute visceral or osseous injury. 2. Emphysematous changes are redemonstrated. Redemonstration of an irregular, spiculated opacity within the right upper lobe with associated calcifications, not significantly changed. Additional pulmonary nodules are unchanged. No new pulmonary nodule, mass, or airspace consolidation. 3. [id number]-vb-[id number] stool within the colon. Mild circumferential wall thickening of the descending colon with minimal adjacent stranding which could be due to underdistention or represent minimal colitis. 4. No new intra-abdominal mass, lymphadenopathy, or ascites. Electronically signed by: Seth Payne MD 06/29/2024 02:31 PM [facility] Cervical Spine CT 06/29/24 09:09 IMPRESSION: 1. No acute intracranial pathology. 2. There is moderately severe patchy low attenuation change in the periventricular white matter spaces, commonly associated with chronic microangiopathy. 3. An old infarction is again noted within the right parieto-occipital region. 4. There is a chronic lacunar infarction within the right basal ganglia. EXAMINATION: CT CERVICAL SPINE WITHOUT CONTRAST CLINICAL INFORMATION: Neck pain status-post fall. COMPARISON: None available. TECHNIQUE: Contiguous axial imaging was performed through the cervical spine without intravenous administration of contrast. Multiplanar reformatted images are submitted. This CT examination was performed using dose optimization techniques as appropriate, variously including the following: *Automated exposure control *Adjustment of mA and/or kV according to patient size (this includes techniques or standardized protocols for targeted exams where dose is matched to indication/reason for exam; i.e. extremities or head) *Use of iterative reconstruction technique DLP: As above FINDINGS: Vertebral body heights and alignment are normal. There is mild posterior disc space narrowing at C3-4 and C4-5. At C6-7, there is moderate disc space narrowing, with a 2 mm anterolisthesis. There is a small osteophyte arising from the anterior margin of the C6 lower endplate, possibly acute. The remaining disc spaces are well-maintained. The posterior elements are intact. There is multi-level cervical facet arthropathy. There is no prevertebral soft tissue swelling. The dens is intact and shows a small sclerotic, well marginated benign bone island. There are emphysematous changes, and there is right apical scar/subsegmental atelectasis, incompletely covered in the [id number]. IMPRESSION: 1. A small avulsion fragment, possibly acute, arises from the anterior margin of the C6 lower endplate. 2. There is multi-level cervical degenerative disc disease, most pronounced at C6-7, where degenerative change is moderate. 3. There is multi-level facet arthropathy. 4. There are emphysematous changes, and there is incompletely covered right apical scar/subsegmental atelectasis. Fleischner guidelines were followed. Electronically signed by: Pete Eduardo MD 06/29/2024 01:59 PM [employer] [facility] RP Elbow X-Ray 06/29/24 09:09 IMPRESSION: Posterior soft tissue swelling without displaced fracture. Evaluation somewhat limited due to hyperflexion. Electronically signed by: Seth Payne MD 06/29/2024 10:32 AM [facility] [employer] [facility] RP Hand/Wrist X-Ray 06/29/24 09:09 IMPRESSION: Comminuted and displaced fractures through the distal radial and ulnar metaphyses with apex volar angulation. Electronically signed by: Seth Payne MD 06/29/2024 10:32 AM [facility] Head CT 06/29/24 09:09 IMPRESSION: 1. No acute intracranial pathology. 2. There is moderately severe patchy low attenuation change in the periventricular white matter spaces, commonly associated with chronic microangiopathy. 3. An old infarction is again noted within the right parieto-occipital region. 4. There is a chronic lacunar infarction within the right basal ganglia. EXAMINATION: CT CERVICAL SPINE WITHOUT CONTRAST CLINICAL INFORMATION: Neck pain status-post fall. COMPARISON: None available. TECHNIQUE: Contiguous axial imaging was performed through the cervical spine without intravenous administration of contrast. Multiplanar reformatted images are submitted. This CT examination was performed using dose optimization techniques as appropriate, variously including the following: *Automated exposure control *Adjustment of mA and/or kV according to patient size (this includes techniques or standardized protocols for targeted exams where dose is matched to indication/reason for exam; i.e. extremities or head) *Use of iterative reconstruction technique DLP: As above FINDINGS: Vertebral body heights and alignment are normal. There is mild posterior disc space narrowing at C3-4 and C4-5. At C6-7, there is moderate disc space narrowing, with a 2 mm anterolisthesis. There is a small osteophyte arising from the anterior margin of the C6 lower endplate, possibly acute. The remaining disc spaces are well-maintained. The posterior elements are intact. There is multi-level cervical facet arthropathy. There is no prevertebral soft tissue swelling. The dens is intact and shows a small sclerotic, well marginated benign bone island. There are emphysematous changes, and there is right apical scar/subsegmental atelectasis, incompletely covered in the [id number]. IMPRESSION: 1. A small avulsion fragment, possibly acute, arises from the anterior margin of the C6 lower endplate. 2. There is multi-level cervical degenerative disc disease, most pronounced at C6-7, where degenerative change is moderate. 3. There is multi-level facet arthropathy. 4. There are emphysematous changes, and there is incompletely covered right apical scar/subsegmental atelectasis. Fleischner guidelines were followed. Electronically signed by: Pete Eduardo MD 06/29/2024 01:59 PM EST RP Knee X-Ray 06/29/24 09:09 IMPRESSION: No acute osseous abnormality. Electronically signed by: Seth Payne MD 06/29/2024 10:21 AM EST RP Chest CT 06/29/24 11:59 IMPRESSION: 1. No evidence of acute visceral or osseous injury. 2. Emphysematous changes are redemonstrated. Redemonstration of an irregular, spiculated opacity within the right upper lobe with associated calcifications, not significantly changed. Additional pulmonary nodules are unchanged. No new pulmonary nodule, mass, or airspace consolidation. 3. Zdkf-wc-mokneihp stool within the colon. Mild circumferential wall thickening of the descending colon with minimal adjacent stranding which could be due to underdistention or represent minimal colitis. 4. No new intra-abdominal mass, lymphadenopathy, or ascites. Electronically signed by: Seth Payne MD 06/29/2024 02:31 PM EST RP Wrist X-Ray 06/29/24 17:58 IMPRESSION: Improved alignment of the fiberglass casted distal radius and ulnar fractures. 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 Patient presented to the hospital from [facility] with right wrist pain s/p mechanical fall. X-rays of right knee and right elbow negative for acute fracture of subluxation. Patient was admitted to the hospital under orthopedic services. Hospitalist consult for medical management. Open comminuted and displaced radial and ulnar fractures S/P mechanical fall at [facility] No sepsis: Tachycardia secondary to pain, leukocytosis reactionary Will empirically treat with vancomycin and Ancef, started 06/29/2024 Analgesics per Orthopedics Plan as per Orthopedics Given pt's significant comorbidities and deconditioned state she will be a moderate to high risk surgical candidate Patient without significant cardiac history; RCRI is 1 point, class II risk No additional cardiac workup indicated at this time Hx of CVA Hold Eliquis due to impending surgery Pneumatic compression for DVT prophylaxis at this time Continue atorvastatin Seen by speech and swallow last month, recommended NDD3 diet with thin liquids COPD Not in acute exacerbation Continue home inhalers Peripheral neuropathy Continue ropinirole GERD PPI Severe procaine calorie malnutrition Ensure t.i.d. Nutrition consult Attending: Dr. Lundberg Thank you for allowing us to participate in the care of this patient. Will continue to follow along with you.
[2024-06-29] MEDS: vancomycin HCL 1,000 MG in 0.9 % Sodium Chloride 250 ML 270 MG IV (21:24)
[2024-06-29] MEDS: Lactated Ringers 1,000 ML 100 ML IVCONT (21:25)
--- NOTE | 2024-06-29 21:32 | PC.NURSE ---
Patient refused all pm medications, abx and IV fluids hung. Pt. states that her port is for chemo only, does not want it accessed at this time.
--- NOTE | 2024-06-29 23:10 | MHC.EDTECH ---
This tech took over care of patient at 2300,rounded and introduced self to pt,appears comfortable eyes closed,call baker in reach
[2024-06-30] VITALS (7 sets, daily range): BP systolic 121–166; BP diastolic 57–78; PULSE 74–101; RESP 12–18; TEMP 36.6–37.2; O2SAT 89–99
[2024-06-30] MEDS: ceFAZolin Sodium/Dextrose,Iso 2 GM/50 ML PIGGYBACK IV ×4 (01:06→23:59)
--- NOTE | 2024-06-30 01:10 | MHC.EDTECH ---
Patient was incont.of a large amount of urine,darlene care given and bed linen changed,assisted RN with straight cath, urine sample collected and sent to lab.
[2024-06-30] MEDS: HYDROmorphone HCl 0.5 MG/0.5 ML SYRINGE IVPUSH ×4 (01:24→17:21)
[2024-06-30 01:52] LABS: Appearance Urine Clear; Color Urine Yellow; Glucose Urine UA Negative (Negative); Leukocyte Esterase Urine Moderate (2+) (Negative); Nitrite Urine Positive (Negative); PH 5.5 (5.0-9.0); Specific Gravity - Urine >= 1.030 (1.005-1.025); UMIC TRIGGER UACC YES; Urine Blood Negative (Negative); Urine Ketones Negative (Negative); Urine Protein Negative (Neg-Trace)
[2024-06-30 02:22] LABS: Bacteria Urine 4+ (None Seen); Hyaline Casts Urine 0-2 /LPF (0-2); RBC Urine 0-2 /HPF (0-2); Squamous Epithelial Cell Urine 0-2 /HPF (0-2); UACC Culture Trigger YES; WBC Urine 21-50 /HPF (0-5)
[2024-06-30] MEDS: Ferrous Sulfate 324 MG TABLET.DR PO (07:27)
[2024-06-30 07:48] LABS: MANUAL DIFF FLAG NO
[2024-06-30 07:52] LABS: Basophils Percent Auto 0.3 % (0-2); Eosinophils Absolute Auto 0.1 X10*3/uL (0.0-0.4); Eosinophils Percent Auto 1.6 % (0-4); Hematocrit 29.2 % (37.0-47.0); Hemoglobin 8.8 g/dl (12.0-16.0); Imm Gran Abs Auto 0.02 X10*3/uL (0.00-0.03); Imm Gran Pct Auto 0.3 % (0.0-0.4); Lymphocytes Absolute Auto 0.5 X10*3/uL (1.2-4.9); Lymphocytes Percent Auto 6.7 % (20-40); Mean Corpuscular HGB Conc 30.1 g/dl (31.0-35.0); Mean Corpuscular Volume 86.1 fL (80.0-98.0); Mean Platelet Volume 8.6 fL (9.4-12.3); Monocytes Absolute Auto 0.8 X10*3/uL (0.1-1.2); Monocytes Percent Auto 11.8 % (2-11); Neutrophils Absolute Auto 5.3 x10*3/uL (2.0-8.3); Neutrophils Percent Auto 79.3 % (45-73); Platelet Count 169 X10*3/uL (160-400); Red Blood Count 3.39 X10*6/uL (4.20-5.50); Red Cell Distribution Width 24.1 % (11.0-16.0); White Blood Count 6.7 X10*3/uL (4.8-10.8)
[2024-06-30 08:13] LABS: Anion Gap 12 (12-20); Blood Urea Nitrogen 6 mg/dL (9-16); Calcium 8.5 mg/dL (8.4-10.2); Carbon Dioxide 25 mmol/L (22-29); Chloride 104 mmol/L (96-108); Creatinine Clr Calc Pharmacy 81.6; Estimated Glomerular Filt Rate > 60; Glucose Fasting 97 mg/dL (60-99); Potassium 3.6 mmol/L (3.3-5.1); Sodium 137 mmol/L (135-145)
--- NOTE | 2024-06-30 10:16 | MHC.CM.PN ---
PT REPORTS SHE LIVES ALONE WITH HER NIECE AND FRIENDS NEARBY FOR SUPPORT HOWEVER SHE HAS BEEN AT [facility] FOR [facility] FOR SOME TIME, AND HER NIECE IS TRYING TO KEEP HER THERE LT PT REPORTS SHE USED NO DME [facility] [employer] PT DID NOT HAVE A PCP, HOWEVER IS NOW SEEN BY CLAUDETTE CHE AT [facility] HCP ON FILE DCP: RETURN TO [facility] VIA BLS
--- NOTE | 2024-06-30 10:43 | PM.PNORT ---
Subjective Subjective Date of Service: 06/30/24 Interval history: Patient is a 64-year-old female who is admitted to the hospital for evaluation and treatment of right open distal radius and distal ulnar fractures, date of injury 06/29/2024 Fracture was reduced in the ED Patient was currently on IV antibiotics Patient is resting comfortably in bed this morning No acute events overnight Patient has no other acute complaints or concerns at this time Physical Exam Vital Signs: Vital Signs: Last Vital Signs Temp 98 F 06/30/24 08:08 Pulse 101 H 06/30/24 08:08 Resp 12 06/30/24 08:08 BP 129/75 06/30/24 08:08 Pulse Ox 93 06/30/24 08:08 O2 Del Method Nasal Cannula 06/30/24 08:08 O2 Flow Rate 2 06/30/24 08:08 Oxygen Flow Rate 1 06/29/24 18:13 BMI result Body Mass Index 16.2 Extrem: Other: Postreduction splint on patient's right wrist in place There is some ecchymosis noted on the patient's elbow and on her fingers outside of the splint Patient does report some tenderness to palpation of her fingers Capillary refill brisk Sensation intact Of note, patient is able to be extended at the right elbow, no evidence of contraction Procedures Date of Service Date of Service: 06/30/24 Progress Note: A&P Assessment and plan (1) Open fracture: Status: Acute (2) Fracture of radius, distal, with ulna, right, open: Status: Acute Plan 1. Open right distal radius and distal ulnar fractures Date of injury 06/29/2024 I educated the patient about the condition. I discussed both operative and nonoperative treatment options. The patient would like to proceed with surgery. The risks and benefits of operative treatment were discussed with the patient and the patient wishes to proceed with surgery. These risks include, but are not limited to, risk of damage to blood vessels, nerves, tendons, infection, recurrence, incomplete relief of preoperative symptoms, persistent pain, possible need for further surgery, and the risks associated with regional blocks and/or anesthesia. Plan is to take the patient to the operating room at some point in the next few weeks for the following procedures: 1. I and D and possible ORIF of right distal radius and distal ulna fractures Continue with anticoagulation with Lovenox until 12 hours preoperatively, then hold for surgical intervention Continue pain management Continue with IV antibiotics per Medicine recommendations Continue with all other recommendations per Medicine, appreciate consult and input Time Spent With Patient Time: Total time managing care of this patient today ____ minutes. Quality Stroke Does the patient have a stroke diagnosis?: Yes Reason for No Anti-thrombotic by Day Two: Contraindicated (Holding for potential surgical intervention) VTE Prior VTE?: No VTE Risk Level:: Medical - moderate - high VTE Device Contraindication: N/A - Device Ordered VTE Drug Contraindication: Treatment Not Indicated (Anticoagulant held for potential surgical intervention)
[2024-06-30] MEDS: vancomycin HCL 750 MG in 0.9 % Sodium Chloride 250 ML 265 MG IV (11:19)
[2024-06-30] MEDS: Lactated Ringers 1,000 ML 100 ML IVCONT ×2 (11:22→22:43)
[2024-06-30] MEDS: rOPINIRole HCL 2 MG TABLET PO (19:52)
--- NOTE | 2024-06-30 20:13 | P.PNIM_ITS ---
Subjective Subjective Date of Service: 06/30/24 Interval History: Follow-up for patient admitted to Orthopedics for acute comminuted and displaced radial and fractures Patient seen and evaluated at bedside where she is resting comfortably in bed Pain well-controlled with current regimen Has no acute medical complaints No overnight events UA consistent with UTI, though patient has no polyuria or dysuria Review of Systems Patient has no acute medical complaints at this time Pain well-controlled Physical Exam 2 Vital Signs: Vital Signs: Last Vital Signs Temp 98.7 F 06/30/24 19:27 Pulse 77 06/30/24 19:27 Resp 15 06/30/24 19:27 BP 129/60 06/30/24 19:27 Pulse Ox 94 06/30/24 19:27 O2 Del Method Nasal Cannula 06/30/24 19:27 O2 Flow Rate 2 06/30/24 19:27 Oxygen Flow Rate 1 06/29/24 18:13 BMI result Body Mass Index 16.2 General: AOx3, cachectic, in no acute distress. Resp: CTA bilaterally CVS: S1, S2, RRR GI: +BS, NT, no distention Skin: Warm, dry. Multiple areas of ecchymosis on upper extremities bilaterally Neuro: Cranial nerves II-XII grossly intact bilaterally. Motor grossly intact bilaterally, though global weakness noted, R>L Extremities: No edema. Right hand and wrist in soft splint. Psych: Appropriate affect Objective Data Active Medications Acetaminophen (Acetaminophen 325 Mg Tablet) 650 mg PO Q6H PRN PRN Reason: Pain, Mild (Pain Scale 1-3), fever or headache Albuterol Sulfate (Albuterol Sulfate (0.042%) 1.25 Mg/3 Ml Vial.Neb) 2.5 mg INHALE Q4H PRN PRN Reason: shortness of breath or wheezing Albuterol Sulfate (Albuterol Sulfate 90 Mcg 8 Gm Inhaler) 2 puff INHALE QID PRN PRN Reason: for wheezing Atorvastatin Calcium (Atorvastatin Calcium 80 Mg Tablet) 80 mg PO BEDTIME [facility] Last Admin: 06/30/24 19:52 Dose: Not Given Documented By: RO Non-Admin Reason: Patient Refused Docusate Sodium (Docusate Sodium 100 Mg Capsule) 100 mg PO BID [facility] Last Admin: 06/30/24 19:52 Dose: Not Given Documented By: RO Non-Admin Reason: Patient Refused Ferrous Sulfate (Ferrous Sulfate 324 Mg Tablet.) 324 mg PO DAILY [facility] Last Admin: 06/30/24 07:27 Dose: 324 mg Documented By: BABAK Fluticasone/Vilanterol (Fluticasone/Vilanterol 200/25 Blst.W.Dev) 1 puff INHALE RDAILY [facility] Last Admin: 06/30/24 08:16 Dose: Not Given Documented By: BEREKET Non-Admin Reason: med unavail pharmacy called Hydromorphone HCl (Hydromorphone Hcl 0.5 Mg/0.5 Ml Syringe) 0.5 mg IVPUSH Q4H PRN; Protocol PRN Reason: Pain, Severe (Pain Scale 7-10) Last Admin: 06/30/24 17:21 Dose: 0.5 mg Documented By: BABAK Lactated Ringer's (Lr) 1,000 mls @ 100 mls/hr IVCONT .Q10H [facility] Last Admin: 06/30/24 11:22 Dose: 100 mls/hr Documented By: BABAK Cefazolin Sodium/Dextrose (Ancef) 2 gm in 50 mls @ 100 mls/hr IV Q8H [facility] Last Infusion: 06/30/24 17:20 Dose: Infused Documented By: BABAK Vancomycin HCl 750 mg/ Sodium (Chloride) 265 mls @ 265 mls/hr IV Q12H [facility] Last Infusion: 06/30/24 12:39 Dose: Infused Documented By: BABAK Omeprazole (Omeprazole 20 Mg Capsule.) 20 mg PO DAILY PRN PRN Reason: Acid Reflux Oxycodone HCl (Oxycodone Hcl Immed Release 5 Mg Tablet) 5 mg PO Q4H PRN PRN Reason: Pain, Moderate(Pain Scale 4-6) Pharmacy Consult (Consult Rx Vancomycin Dosing) 1 each MISCELLANE DAILY PRN PRN Reason: Consult order Pramipexole Dihydrochloride (Pramipexole Di-Hcl 0.125 Mg Tablet) 0.125 mg PO BEDTIME PRN PRN Reason: restless leg syndrome Ropinirole HCl (Ropinirole Hcl 2 Mg Tablet) 2 mg PO BEDTIME [facility] Last Admin: 06/30/24 19:52 Dose: 2 mg Documented By: RO Sodium Chloride (0.9 % Sodium Chloride Flush 3 Ml Syringe) 3 ml IVFLUSH QSHIFT [facility] Last Admin: 06/30/24 15:52 Dose: Not Given Documented By: BABAK Non-Admin Reason: IV Running Labs 06/30/24 07:29 06/30/24 07:29 Labs: Laboratory Results - last 24 hr 06/30/24 06/30/24 01:26 07:29 MCV 86.1 MCH 26.0 L MCHC 30.1 L RDW 24.1 H Plt Count 169 MPV 8.6 L Immature Gran % (Auto) 0.3 Neut % (Auto) 79.3 H Lymph % (Auto) 6.7 L [place] % (Auto) 11.8 H Eos % (Auto) 1.6 Baso % (Auto) 0.3 Lymph # (Auto) 0.5 L [place] # (Auto) 0.8 Eos # (Auto) 0.1 Baso # (Auto) 0.0 Abs Immat Gran (auto) 0.02 Absolute Neuts (auto) 5.3 Absolute Nucleated RBC 0.000 Nucleated RBC % (auto) 0.0 Anion Gap 12 Estim Creat Clear Calc 81.6 Estimated GFR > 60 Fasting Glucose 97 Calcium 8.5 D Urine Color Yellow Urine Appearance Clear Urine pH 5.5 Ur Specific [place] >= 1.030 H Urine Protein Negative Urine Glucose (UA) Negative Urine Ketones Negative Urine Blood Negative Urine Nitrite Positive H Ur Leukocyte Esterase Moderate (2+) H Urine RBC 0-2 Urine WBC 21-50 Ur Squamous Epith Cells 0-2 Urine Bacteria 4+ Hyaline Casts 0-2 Assessment and Plan (1) Fracture of radius, distal, with ulna, right, open: Status: Acute Plan Patient is a 64-year-old female with a complicated PMH significant for multiple recent emboli 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 Patient presented to the hospital from [facility] with right wrist pain s/p mechanical fall. X-rays of right knee and right elbow negative for acute fracture of subluxation. Patient was admitted to the hospital under orthopedic services. Hospitalist consult for medical management. Open comminuted and displaced radial and ulnar fractures S/P mechanical fall at [facility] No sepsis: Tachycardia secondary to pain, leukocytosis reactionary Continue empiric abx treatment with vancomycin and Ancef, started 06/29/2024 Analgesics per Orthopedics Plan as per Orthopedics Given pt's significant comorbidities and deconditioned state she will be a moderate to high risk surgical candidate Patient without significant cardiac history; RCRI is 1 point, class II risk No additional cardiac workup indicated at this time Acute UTI UA consistent with acute UTI Patient denies polyuria, dysuria Patient being covered with IV antibiotics as above Follow urine culture Hx of CVA Hold Eliquis due to impending surgery tomorrow Pneumatic compression for DVT prophylaxis at this time Continue atorvastatin Seen by speech and swallow last month, recommended NDD3 diet with thin liquids COPD Not in acute exacerbation Continue home inhalers Peripheral neuropathy Continue ropinirole GERD PPI Severe protein calorie malnutrition Ensure t.i.d. Nutrition consult Attending: Dr. Lundberg Thank you for allowing us to participate in the care of this patient. Will continue to follow along with you. Quality Stroke Does the patient have a stroke diagnosis?: Yes Reason for No Anti-thrombotic by Day Two: Contraindicated (Holding for potential surgical intervention) VTE Prior VTE?: No VTE Risk Level:: Medical - moderate - high VTE Device Contraindication: N/A - Device Ordered VTE Drug Contraindication: Treatment Not Indicated (Anticoagulant held for potential surgical intervention)
[2024-06-30 20:24] LABS: Vancomycin Random 8.7 mcg/mL (15-20)
[2024-06-30] MEDS: vancomycin HCL 1,000 MG in 0.9 % Sodium Chloride 250 ML 270 MG IV (21:40)
[2024-06-30] MEDS: ondansetron HCL 4 MG/2 ML VIAL IVPUSH (21:58)
[2024-07-01] VITALS (11 sets, daily range): BP systolic 101–153; BP diastolic 58–73; PULSE 65–80; RESP 12–18; TEMP 36.1–37.7; O2SAT 92–100; BMI 16.2
[2024-07-01] MEDS: 0.9 % Sodium Chloride Flush 3 ML SYRINGE IVFLUSH (00:03)
[2024-07-01] MEDS: HYDROmorphone HCl 0.5 MG/0.5 ML SYRINGE IVPUSH (05:37)
[2024-07-01 07:46] LABS: MANUAL DIFF FLAG NO
[2024-07-01 07:49] LABS: Basophils Percent Auto 0.2 % (0-2); Eosinophils Absolute Auto 0.1 X10*3/uL (0.0-0.4); Hematocrit 28.4 % (37.0-47.0); Hemoglobin 8.3 g/dl (12.0-16.0); Imm Gran Abs Auto 0.03 X10*3/uL (0.00-0.03); Imm Gran Pct Auto 0.3 % (0.0-0.4); Lymphocytes Absolute Auto 0.5 X10*3/uL (1.2-4.9); Lymphocytes Percent Auto 5.9 % (20-40); Mean Corpuscular HGB Conc 29.2 g/dl (31.0-35.0); Mean Corpuscular Hemoglobin 25.6 pg (27.0-33.0); Mean Corpuscular Volume 87.7 fL (80.0-98.0); Monocytes Absolute Auto 0.7 X10*3/uL (0.1-1.2); Monocytes Percent Auto 7.8 % (2-11); Neutrophils Absolute Auto 7.3 x10*3/uL (2.0-8.3); Neutrophils Percent Auto 84.8 % (45-73); Platelet Count 158 X10*3/uL (160-400); Red Blood Count 3.24 X10*6/uL (4.20-5.50); Red Cell Distribution Width 24.1 % (11.0-16.0); White Blood Count 8.7 X10*3/uL (4.8-10.8)
[2024-07-01 08:01] LABS: Anion Gap 12 (12-20); Blood Urea Nitrogen 5 mg/dL (9-16); Calcium 8.8 mg/dL (8.4-10.2); Carbon Dioxide 25 mmol/L (22-29); Chloride 104 mmol/L (96-108); Creatinine Clr Calc Pharmacy 74.8; Estimated Glomerular Filt Rate > 60; Glucose Fasting 90 mg/dL (60-99); Potassium 4.2 mmol/L (3.3-5.1); Sodium 137 mmol/L (135-145)
[2024-07-01] MEDS: oxyCODONE HCl Immed Release 5 MG TABLET PO ×2 (08:27→22:03)
[2024-07-01] MEDS: ceFAZolin Sodium/Dextrose,Iso 2 GM/50 ML PIGGYBACK IV ×2 (08:29→16:27)
[2024-07-01] MEDS: Lactated Ringers 1,000 ML 100 ML IVCONT (09:22)
[2024-07-01] MEDS: vancomycin HCL 1,000 MG in 0.9 % Sodium Chloride 250 ML 270 MG IV (09:24)
[2024-07-01] MEDS: Lactated Ringers 1,000 ML 80 ML IVCONT (12:47)
--- NOTE | 2024-07-01 12:49 | HO.ANESPROP2 ---
Documented by User: Carmita Becerra MD 07/01/24 14:43 HPI - Anesthesia Eval Consult details Narrative: 64 yo female patient for Right wrist surgery ?ORIF ? Irrigation abd Debridement PMFSH Active Problems Active Problems: All Active Problems Fracture of radius, distal, with ulna, right, open (Acute) Fracture of radius, distal, right, open (Acute) Open fracture (Acute) Fracture of wrist (Acute) Fall on same level from tripping (Acute) CVA (cerebral vascular accident) (Acute) Squamous cell carcinoma of epiglottis (Acute) Carotid stenosis, right (Acute) Microcytic hypochromic anemia (Acute) Bilateral carotid bruits (Acute) Pulmonary nodules (Acute) Tubular adenoma of colon (Acute) Thyroid nodule (Acute) Vitamin D deficiency (Acute) Goiter (Acute) Duodenitis (Acute) Myopia of both eyes (Acute) Papanicolaou smear declined (Acute) Mammogram declined (Acute) Smoker unmotivated to quit (Acute) Restless leg syndrome (Acute) Aortoiliac occlusive disease (Acute) COPD (chronic obstructive pulmonary disease) (Acute) Fibromyalgia (Acute) Peripheral vascular disease (Acute) Osteoporosis (Acute) Past Medical History Medical History Embolic stroke Embolic cerebral infarction Multiple cerebral infarctions Pulmonary nodule 1 cm or greater in diameter Squamous cell carcinoma of epiglottis Weight loss, unintentional Skin lesion of back Immunization declined Fracture of proximal end of fibula Contusion of leg, right Vaccination declined by patient Cervical lymphadenopathy Carotid stenosis, right Microcytic hypochromic anemia Left cervical lymphadenopathy Bilateral carotid bruits Smoker Idiopathic hypercalciuria Thyroid nodule Hx of angiography Vitamin D deficiency Goiter History of tachycardia GERD (gastroesophageal reflux disease) Gastritis Duodenitis Pyloric ulcer History of alcohol abuse Myopia of both eyes Papanicolaou smear declined Mammogram declined Smoker unmotivated to quit Restless leg syndrome Aortoiliac occlusive disease Tubular adenoma of colon Chronic Helicobacter pylori gastritis COPD (chronic obstructive pulmonary disease) Fibromyalgia Peripheral vascular disease Osteoporosis Family History Family History Father Substance use disorder Mother Osteoporosis Substance use disorder Brother Substance use disorder Sister Substance use disorder Lung cancer Sister Substance use disorder Brother Substance use disorder Family history of problems with anesthesia: No Surgical History Surgical History Hx of coronary angiogram History of removal of skin mole Hx of colonoscopy History of surgery on lower extremity Hx of foot surgery History of surgical removal of lesion (~10/28/21) History of lung biopsy (~04/2021) History of exploratory thoracotomy (~04/2018) History of tonsillectomy History of endarterectomy (~05/2020) History of ankle surgery (~11/2011) History of myringotomy History of appendectomy History of tubal ligation History of Problems with Anesthesia: No Social History Social History Household Members: None Housing: Snf Housing Other:: Rehab Are you a primary manager wound care to a significant other at home: No Do you presently have visiting nurse or other home services: No Unable to assess alcohol history related to: Unknown Alcohol intake: former Patient Tobacco Use Status: Current everyday Tobacco user Tobacco use type: Cigar Cigarette Packs Per Day: 0.5 Cigarettes Per Day: 4 Years Smoked: 50+ e-Cigarette/Vaping Use: Never Used Second Hand Smoke Exposure: No Advance Directives Date on File: 12/12/23 service: No Current occupational status: disabled Current occupation: rt handed Current occupational exposures/hazards: No Cognitive needs: No Hearing needs: No Vision needs: Yes Meds Allergies Allergy/AdvReac Type Severity Reaction Status Date / Time aspirin AdvReac Mild Vomiting Verified 06/29/24 09:14 Active Medications: Current Medications Acetaminophen (Acetaminophen 325 Mg Tablet) 650 mg PO Q6H PRN PRN Reason: Pain, Mild (Pain Scale 1-3), fever or headache Albuterol Sulfate (Albuterol Sulfate (0.042%) 1.25 Mg/3 Ml Vial.Neb) 2.5 mg INHALE Q4H PRN PRN Reason: shortness of breath or wheezing Albuterol Sulfate (Albuterol Sulfate 90 Mcg 8 Gm Inhaler) 2 puff INHALE QID PRN PRN Reason: for wheezing Atorvastatin Calcium (Atorvastatin Calcium 80 Mg Tablet) 80 mg PO BEDTIME [facility] Last Admin: 06/30/24 19:52 Dose: Not Given Docusate Sodium (Docusate Sodium 100 Mg Capsule) 100 mg PO BID [facility] Last Admin: 07/01/24 08:38 Dose: Not Given Ferrous Sulfate (Ferrous Sulfate 324 Mg Tablet.) 324 mg PO DAILY [facility] Last Admin: 07/01/24 08:38 Dose: Not Given Fluticasone/Vilanterol (Fluticasone/Vilanterol 200/25 Blst.W.Dev) 1 puff INHALE RDAILY [facility] Last Admin: 07/01/24 08:36 Dose: Not Given Hydromorphone HCl (Hydromorphone Hcl 0.5 Mg/0.5 Ml Syringe) 0.5 mg IVPUSH Q4H PRN; Protocol PRN Reason: Pain, Severe (Pain Scale 7-10) Last Admin: 07/01/24 05:37 Dose: 0.5 mg Lactated Ringer's (Lr) 1,000 mls @ 100 mls/hr IVCONT .Q10H [facility] Last Infusion: 07/01/24 11:37 Dose: 0 mls/hr Cefazolin Sodium/Dextrose (Ancef) 2 gm in 50 mls @ 100 mls/hr IV Q8H [facility] Last Infusion: 07/01/24 09:25 Dose: Infused Vancomycin HCl 1,000 mg/ (Sodium Chloride) 270 mls @ 270 mls/hr IV Q12H [facility] Last Infusion: 07/01/24 10:29 Dose: Infused Lactated Ringer's (Lr) 1,000 mls @ 80 mls/hr IVCONT .[id number] [facility] Last Admin: 07/01/24 12:47 Dose: 80 mls/hr Omeprazole (Omeprazole 20 Mg Capsule.) 20 mg PO DAILY PRN PRN Reason: Acid Reflux Ondansetron HCl (Ondansetron Hcl 4 Mg/2 Ml Vial) 4 mg IVPUSH Q6H PRN PRN Reason: Nausea and Vomiting Last Admin: 06/30/24 21:58 Dose: 4 mg Oxycodone HCl (Oxycodone Hcl Immed Release 5 Mg Tablet) 5 mg PO Q4H PRN PRN Reason: Pain, Moderate(Pain Scale 4-6) Last Admin: 07/01/24 08:27 Dose: 5 mg Pharmacy Consult (Consult Rx Vancomycin Dosing) 1 each MISCELLANE DAILY PRN PRN Reason: Consult order Pramipexole Dihydrochloride (Pramipexole Di-Hcl 0.125 Mg Tablet) 0.125 mg PO BEDTIME PRN PRN Reason: restless leg syndrome Ropinirole HCl (Ropinirole Hcl 2 Mg Tablet) 2 mg PO BEDTIME [facility] Last Admin: 06/30/24 19:52 Dose: 2 mg Sodium Chloride (0.9 % Sodium Chloride Flush 3 Ml Syringe) 3 ml IVFLUSH QSHIFT BILL Last Admin: 07/01/24 07:43 Dose: Not Given Home Medications ?Medication ?Instructions ?Recorded ?Confirmed ?Last Taken ?Type pantoprazole 40 mg tablet,delayed 40 mg PO DAILY PRN Acid Reflux 05/25/24 06/29/24 Unknown History release pramipexole 0.125 mg tablet 0.125 mg PO BEDTIME PRN restless 05/25/24 06/29/24 Unknown History leg syndrome ropinirole 1 mg tablet 2 mg PO BEDTIME 05/25/24 06/29/24 Unknown History acetaminophen 325 mg tablet 650 mg PO Q6H PRN Pain 06/29/24 06/29/24 Unknown History ascorbic acid (vitamin C) 500 mg 500 mg PO DAILY 06/29/24 06/29/24 Unknown History tablet (Vitamin C) ferrous sulfate 325 mg (65 mg 325 mg PO DAILY 06/29/24 06/29/24 Unknown History iron) tablet menthol 5 % topical patch (Icy Hot 1 patch topical BID 06/29/24 06/29/24 Unknown History (menthol)) Exam Height,Weight and Vital Signs: Height 5 ft 1 in Weight 39.009 kg Last Vital Signs Temp 97.6 F 07/01/24 12:43 Pulse 68 07/01/24 12:43 Resp 18 07/01/24 12:43 BP 140/62 H 07/01/24 12:43 Pulse Ox 100 07/01/24 12:43 O2 Del Method Nasal Cannula 07/01/24 12:43 O2 Flow Rate 3 07/01/24 12:43 Oxygen Flow Rate 1 06/29/24 18:13 Pertinent Lab Results Pertinent Lab Results: Laboratory Tests 06/29/24 06/30/24 06/30/24 11:20 01:26 07:29 WBC 12.1 H 6.7 RBC 4.04 L 3.39 L Hgb 10.2 L 8.8 L Hct 34.9 L 29.2 L MCV 86.4 86.1 MCH 25.2 L 26.0 L MCHC 29.2 L 30.1 L RDW 23.8 H 24.1 H Plt Count 210 169 MPV 8.6 L 8.6 L Immature Gran % (Auto) 0.5 H 0.3 Neut % (Auto) 91.0 H 79.3 H Lymph % (Auto) 3.0 L 6.7 L [place] % (Auto) 5.1 11.8 H Eos % (Auto) 0.2 1.6 Baso % (Auto) 0.2 0.3 Lymph # (Auto) 0.4 L 0.5 L [place] # (Auto) 0.6 0.8 Eos # (Auto) 0.0 0.1 Baso # (Auto) 0.0 0.0 Abs Immat Gran (auto) 0.06 H 0.02 Absolute Neuts (auto) 11.0 H 5.3 Absolute Nucleated RBC 0.000 0.000 Nucleated RBC % (auto) 0.0 0.0 Smear Tech's Comments VERIFIED PT 17.6 H INR 1.5 H Sodium 137 137 Potassium 4.4 3.6 Chloride 106 104 Carbon Dioxide 23 25 Anion Gap 12 12 BUN 9 6 L Creatinine 0.52 0.44 L Estim Creat Clear Calc 69.0 81.6 Estimated GFR > 60 > 60 Random Glucose 95 Fasting Glucose 97 Calcium 9.6 D 8.5 D Magnesium 2.0 Total Bilirubin 0.3 AST 35 H ALT 24 Alkaline Phosphatase 122 H Troponin I High Sens < 2.7 Total Protein 6.9 Albumin 4.1 Urine Color Yellow Urine Appearance Clear Urine pH 5.5 Ur Specific [place] >= 1.030 H Urine Protein Negative Urine Glucose (UA) Negative Urine Ketones Negative Urine Blood Negative Urine Nitrite Positive H Ur Leukocyte Esterase Moderate (2+) H Urine RBC 0-2 Urine WBC 21-50 Ur Squamous Epith Cells 0-2 Urine Bacteria 4+ Hyaline Casts 0-2 Random Vancomycin 06/30/24 07/01/24 19:56 07:22 WBC 8.7 RBC 3.24 L Hgb 8.3 L Hct 28.4 L MCV 87.7 MCH 25.6 L MCHC 29.2 L RDW 24.1 H Plt Count 158 L MPV 9.0 L Immature Gran % (Auto) 0.3 Neut % (Auto) 84.8 H Lymph % (Auto) 5.9 L [place] % (Auto) 7.8 Eos % (Auto) 1.0 Baso % (Auto) 0.2 Lymph # (Auto) 0.5 L [place] # (Auto) 0.7 Eos # (Auto) 0.1 Baso # (Auto) 0.0 Abs Immat Gran (auto) 0.03 Absolute Neuts (auto) 7.3 Absolute Nucleated RBC 0.000 Nucleated RBC % (auto) 0.0 Smear Tech's Comments PT INR Sodium 137 Potassium 4.2 Chloride 104 Carbon Dioxide 25 Anion Gap 12 BUN 5 L Creatinine 0.48 L Estim Creat Clear Calc 74.8 Estimated GFR > 60 Random Glucose Fasting Glucose 90 Calcium 8.8 Magnesium Total Bilirubin AST ALT Alkaline Phosphatase Troponin I High Sens Total Protein Albumin Urine Color Urine Appearance Urine pH Ur Specific [place] Urine Protein Urine Glucose (UA) Urine Ketones Urine Blood Urine Nitrite Ur Leukocyte Esterase Urine RBC Urine WBC Ur Squamous Epith Cells Urine Bacteria Hyaline Casts Random Vancomycin 8.7 L Assessment and Plan Final Anesthetic Review Family History of Problems with Anesthesia: No History of Problems with Anesthesia: No Patient Risk: Low Documented by User: Tanya Yee MD 07/01/24 13:45 [facility] Past Medical History Medical History Embolic stroke Embolic cerebral infarction Multiple cerebral infarctions Pulmonary nodule 1 cm or greater in diameter Squamous cell carcinoma of epiglottis Weight loss, unintentional Skin lesion of back Immunization declined Fracture of proximal end of fibula Contusion of leg, right Vaccination declined by patient Cervical lymphadenopathy Carotid stenosis, right Microcytic hypochromic anemia Left cervical lymphadenopathy Bilateral carotid bruits Smoker Idiopathic hypercalciuria Thyroid nodule Hx of angiography Vitamin D deficiency Goiter History of tachycardia GERD (gastroesophageal reflux disease) Gastritis Duodenitis Pyloric ulcer History of alcohol abuse Myopia of both eyes Papanicolaou smear declined Mammogram declined Smoker unmotivated to quit Restless leg syndrome Aortoiliac occlusive disease Tubular adenoma of colon Chronic Helicobacter pylori gastritis COPD (chronic obstructive pulmonary disease) Fibromyalgia Peripheral vascular disease Osteoporosis Family History Family History Father Substance use disorder Mother Osteoporosis Substance use disorder Brother Substance use disorder Sister Substance use disorder Lung cancer Sister Substance use disorder Brother Substance use disorder Surgical History Surgical History Hx of coronary angiogram History of removal of skin mole Hx of colonoscopy History of surgery on lower extremity Hx of foot surgery History of surgical removal of lesion (~10/28/21) History of lung biopsy (~04/2021) History of exploratory thoracotomy (~04/2018) History of tonsillectomy History of endarterectomy (~05/2020) History of ankle surgery (~11/2011) History of myringotomy History of appendectomy History of tubal ligation Social History Social History Household Members: None Housing: Snf Housing Other:: Rehab Are you a primary manager wound care to a significant other at home: No Do you presently have visiting nurse or other home services: No Unable to assess alcohol history related to: Unknown Alcohol intake: former Patient Tobacco Use Status: Current everyday Tobacco user Tobacco use type: Cigar Cigarette Packs Per Day: 0.5 Cigarettes Per Day: 4 Years Smoked: 50+ e-Cigarette/Vaping Use: Never Used Second Hand Smoke Exposure: No Advance Directives Date on File: 12/12/23 service: No Current occupational status: disabled Current occupation: rt handed Current occupational exposures/hazards: No Cognitive needs: No Hearing needs: No Vision needs: Yes Meds Allergies Allergy/AdvReac Type Severity Reaction Status Date / Time aspirin AdvReac Mild Vomiting Verified 06/29/24 09:14 Home Medications ?Medication ?Instructions ?Recorded ?Confirmed ?Last Taken ?Type pantoprazole 40 mg tablet,delayed 40 mg PO DAILY PRN Acid Reflux 05/25/24 06/29/24 Unknown History release pramipexole 0.125 mg tablet 0.125 mg PO BEDTIME PRN restless 05/25/24 06/29/24 Unknown History leg syndrome ropinirole 1 mg tablet 2 mg PO BEDTIME 05/25/24 06/29/24 Unknown History acetaminophen 325 mg tablet 650 mg PO Q6H PRN Pain 06/29/24 06/29/24 Unknown History ascorbic acid (vitamin C) 500 mg 500 mg PO DAILY 06/29/24 06/29/24 Unknown History tablet (Vitamin C) ferrous sulfate 325 mg (65 mg 325 mg PO DAILY 06/29/24 06/29/24 Unknown History iron) tablet menthol 5 % topical patch (Icy Hot 1 patch topical BID 06/29/24 06/29/24 Unknown History (menthol)) Exam Airway Mallampati Class: II TM Dist: >3cm Neck ROM: Full Heart: rrr Lungs: cta Assessment and Plan Assessment Anesthesia Assessment: Anesthesia Plan Discussed and Smoking Cess. Discussed Final Anesthetic Review NPO: Yes ASA Class: IV Final Preanesthetic Review: No Changes in Pt Med Stat, Meds/Allgs Chart Reviewed, Consent Obtained/Reviewed and Anes Risks/Benef Reviewed Patient Risk: High Procedure Risk: Intermediate Anesthetic Plan Anesthetic Plan: GA and MAC: Disposition: Standard PACU
--- NOTE | 2024-07-01 12:55 | P.PNIM_ITS ---
Subjective Subjective Date of Service: 07/01/24 Interval History: Follow-up for patient admitted to Orthopedics for acute comminuted and displaced radial and fractures no new complaint Review of Systems Patient has no acute medical complaints at this time Pain well-controlled Physical Exam 2 Vital Signs: Vital Signs: Last Vital Signs Temp 97.6 F 07/01/24 12:43 Pulse 68 07/01/24 12:43 Resp 18 07/01/24 12:43 BP 140/62 H 07/01/24 12:43 Pulse Ox 100 07/01/24 12:43 O2 Del Method Nasal Cannula 07/01/24 12:43 O2 Flow Rate 3 07/01/24 12:43 Oxygen Flow Rate 1 06/29/24 18:13 BMI result Body Mass Index 16.2 General: AOx3, cachectic, in no acute distress. Resp: CTA bilaterally CVS: S1, S2, RRR GI: +BS, NT, no distention Skin: Warm, dry. Multiple areas of ecchymosis on upper extremities bilaterally Neuro: Cranial nerves II-XII grossly intact bilaterally. Motor grossly intact bilaterally, though global weakness noted, R>L Extremities: No edema. Right hand and wrist in soft splint. Psych: Appropriate affect Objective Data Active Medications Acetaminophen (Acetaminophen 325 Mg Tablet) 650 mg PO Q6H PRN PRN Reason: Pain, Mild (Pain Scale 1-3), fever or headache Albuterol Sulfate (Albuterol Sulfate (0.042%) 1.25 Mg/3 Ml Vial.Neb) 2.5 mg INHALE Q4H PRN PRN Reason: shortness of breath or wheezing Albuterol Sulfate (Albuterol Sulfate 90 Mcg 8 Gm Inhaler) 2 puff INHALE QID PRN PRN Reason: for wheezing Atorvastatin Calcium (Atorvastatin Calcium 80 Mg Tablet) 80 mg PO BEDTIME [facility] Last Admin: 06/30/24 19:52 Dose: Not Given Documented By: RO Non-Admin Reason: Patient Refused Docusate Sodium (Docusate Sodium 100 Mg Capsule) 100 mg PO BID [facility] Last Admin: 07/01/24 08:38 Dose: Not Given Documented By: DESTINEE Non-Admin Reason: Patient Refused Ferrous Sulfate (Ferrous Sulfate 324 Mg Tablet.) 324 mg PO DAILY [facility] Last Admin: 07/01/24 08:38 Dose: Not Given Documented By: DESTINEE Non-Admin Reason: Patient Refused Fluticasone/Vilanterol (Fluticasone/Vilanterol 200/25 Blst.W.Dev) 1 puff INHALE RDAILY [facility] Last Admin: 07/01/24 08:36 Dose: Not Given Documented By: GRADY Non-Admin Reason: Patient Refused Hydromorphone HCl (Hydromorphone Hcl 0.5 Mg/0.5 Ml Syringe) 0.5 mg IVPUSH Q4H PRN; Protocol PRN Reason: Pain, Severe (Pain Scale 7-10) Last Admin: 07/01/24 05:37 Dose: 0.5 mg Documented By: RO Lactated Ringer's (Lr) 1,000 mls @ 100 mls/hr IVCONT .Q10H [facility] Last Infusion: 07/01/24 11:37 Dose: 0 mls/hr Documented By: DESTINEE Cefazolin Sodium/Dextrose (Ancef) 2 gm in 50 mls @ 100 mls/hr IV Q8H [facility] Last Infusion: 07/01/24 09:25 Dose: Infused Documented By: DESTINEE Vancomycin HCl 1,000 mg/ (Sodium Chloride) 270 mls @ 270 mls/hr IV Q12H [facility] Last Infusion: 07/01/24 10:29 Dose: Infused Documented By: DESTINEE Lactated Ringer's (Lr) 1,000 mls @ 80 mls/hr IVCONT .[id number] [facility] Last Admin: 07/01/24 12:47 Dose: 80 mls/hr Documented By: ARMAAN Omeprazole (Omeprazole 20 Mg Capsule.Dr) 20 mg PO DAILY PRN PRN Reason: Acid Reflux Ondansetron HCl (Ondansetron Hcl 4 Mg/2 Ml Vial) 4 mg IVPUSH Q6H PRN PRN Reason: Nausea and Vomiting Last Admin: 06/30/24 21:58 Dose: 4 mg Documented By: RO Oxycodone HCl (Oxycodone Hcl Immed Release 5 Mg Tablet) 5 mg PO Q4H PRN PRN Reason: Pain, Moderate(Pain Scale 4-6) Last Admin: 07/01/24 08:27 Dose: 5 mg Documented By: DESTINEE Pharmacy Consult (Consult Rx Vancomycin Dosing) 1 each MISCELLANE DAILY PRN PRN Reason: Consult order Pramipexole Dihydrochloride (Pramipexole Di-Hcl 0.125 Mg Tablet) 0.125 mg PO BEDTIME PRN PRN Reason: restless leg syndrome Ropinirole HCl (Ropinirole Hcl 2 Mg Tablet) 2 mg PO BEDTIME [facility] Last Admin: 06/30/24 19:52 Dose: 2 mg Documented By: RO Sodium Chloride (0.9 % Sodium Chloride Flush 3 Ml Syringe) 3 ml IVFLUSH QSHIFT [facility] Last Admin: 07/01/24 07:43 Dose: Not Given Documented By: DESTINEE Non-Admin Reason: IV Running Labs 07/01/24 07:22 07/01/24 07:22 Labs: Laboratory Results - last 24 hr 06/30/24 07/01/24 19:56 07:22 MCV 87.7 MCH 25.6 L MCHC 29.2 L RDW 24.1 H Plt Count 158 L MPV 9.0 L Immature Gran % (Auto) 0.3 Neut % (Auto) 84.8 H Lymph % (Auto) 5.9 L [place] % (Auto) 7.8 Eos % (Auto) 1.0 Baso % (Auto) 0.2 Lymph # (Auto) 0.5 L [place] # (Auto) 0.7 Eos # (Auto) 0.1 Baso # (Auto) 0.0 Abs Immat Gran (auto) 0.03 Absolute Neuts (auto) 7.3 Absolute Nucleated RBC 0.000 Nucleated RBC % (auto) 0.0 Anion Gap 12 Estim Creat Clear Calc 74.8 Estimated GFR > 60 Fasting Glucose 90 Calcium 8.8 Random Vancomycin 8.7 L Microbiology Microbiology Results: Microbiology 06/30/24 Unknown Urine Culture - Preliminary Urine Catheterized - Straight Catheter Gram negative vaishali Assessment and Plan (1) Fracture of radius, distal, with ulna, right, open: Status: Acute Plan Patient is a 64-year-old female with a complicated PMH significant for multiple recent emboli 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 Patient presented to the hospital from [facility] with right wrist pain s/p mechanical fall. X-rays of right knee and right elbow negative for acute fracture of subluxation. Patient was admitted to the hospital under orthopedic services. Hospitalist consult for medical management. Open comminuted and displaced radial and ulnar fractures S/P mechanical fall at [facility] No sepsis: Tachycardia secondary to pain, leukocytosis reactionary Continue empiric abx treatment with vancomycin and Ancef, started 06/29/2024 Analgesics per Orthopedics Plan as per Orthopedics Given pt's significant comorbidities and deconditioned state she will be a moderate to high risk surgical candidate Patient without significant cardiac history; RCRI is 1 point, class II risk No additional cardiac workup indicated at this time Acute UTI, culture show GNR, sensitivity pending continue Abx Hx of CVA Hold Eliquis due to impending surgery tomorrow Pneumatic compression for DVT prophylaxis at this time Continue atorvastatin Seen by speech and swallow last month, recommended NDD3 diet with thin liquids COPD Not in acute exacerbation Continue home inhalers Peripheral neuropathy Continue ropinirole GERD PPI Severe protein calorie malnutrition Ensure t.i.d. Nutrition consult Attending: Dr. Lundberg Thank you for allowing us to participate in the care of this patient. Will continue to follow along with you. Quality Stroke Does the patient have a stroke diagnosis?: Yes Reason for No Anti-thrombotic by Day Two: Contraindicated (Holding for potential surgical intervention) VTE Prior VTE?: No VTE Risk Level:: Medical - moderate - high VTE Device Contraindication: N/A - Device Ordered VTE Drug Contraindication: Treatment Not Indicated (Anticoagulant held for potential surgical intervention)
--- NOTE | 2024-07-01 13:17 | MHC.SHP ---
Pre-Procedural Eval Section A - 24 Hr Update-Section A only Date of Service: 07/01/24 The patient is an INPATIENT: Yes Changes since office visit: Yes Cold of Flu in the past 2 weeks, Yes New Medical Problems, Yes Changes in Medication and Yes Patient answered all questions The patient has been examined within 24 hours of the surgical procedure. The History & Physical has been completed within 30 days and I have reviewed it.: Yes Section B - Complete if H&P > 30 days Chief Complaint: Open fx R distal radius Allergies: Allergies Allergy/AdvReac Type Severity Reaction Status Date / Time aspirin AdvReac Mild Vomiting Verified 06/29/24 09:14 Exam Exam Comment: History: The patient is a 64-year-old woman with multiple medical comorbidities including recent CVA histories, who was on Eliquis and fell onto her outstretched right upper extremity on Monday06/29/2024 while at a retirement facility. She was found to have a significantly displaced distal radius/and distal ulna fracture which underwent closed reduction in the emergency department. She was also noted to have a wound on the ulnar aspect of her right wrist, worrisome for an open distal ulna shaft fracture. She was then admitted to keep the limb elevated, and placed on IV antibiotics. She has been off Eliquis since 06/29/2024 Physical exam: The patient was seen and evaluated by me in preop hold. She was alert oriented and in no acute distress. Her right wrist is splinted, and the splint was clean dry and intact. Significant swelling and ecchymosis of the fingers. The patient was weakly able to flex and extend the fingers, though the splint extended to the PIP joints. Patient reported that she had sensation intact to each of the digits including the thumb. She holds her right upper extremity in a position of internal rotation of the shoulder, flexion at the elbow and forearm pronation. She is status post a recent CVA,, she said in November. With some patients I was able to externally rotate her right shoulder to about 45 degrees of external rotation, and get her elbow to about 90 degrees of flexion. She still had some tightness in the biceps. Radiographs pre and post reduction radiographs were reviewed by me from 06/29/2024: Pre reduction radiographs showed a comminuted fracture of the distal radius with about 45 degrees of apex volar angulation. Similarly, she had a fracture of the distal ulna shaft with about 45 degrees of apex volar angulation. Postreduction radiographs showed almost neutral alignment on the lateral view, again significant comminution of the distal radial shaft and metaphysis and some radial translation and loss of inclination seen on the PA view. Plan Diagnosis/Plan: Unchanged I have reviewed the history and physical and performed a pertinent physical examination on my patient. No changes have occurred unless specified. Assessment and plan: 1. Right closed comminuted distal radius fracture status post closed reduction in the emergency department 2. Right open distal ulnar shaft fracture status post reduction in the emergency department 3. The patient has multiple medical comorbidities including a history of several CVAs, the last resulting in her right upper extremity being held them in position of shoulder internal rotation elbow flexion and forearm pronation. She was reportedly at a rehab facility where she was working on PT and OT when she had her fall. Date of injury: 06/29/2024 She was admitted to the hospital and placed on IV antibiotics. I discussed operative and non operative treatment options with her. Because of the open distal ulna fracture I believe it is in her best interest for us to take this to the operating room at least for the I and D of the open fracture. I would like to perform an open reduction internal fixation of the distal radius fracture, however her medical comorbidities may necessitate that she has this procedure done solely under a regional block and without general anesthesia. I am also concerned about the tightness of her shoulder internal rotation, elbow flexion and forearm pronation that has developed since her stroke. Intraoperative decision making based on what the patient is able to tolerate, as well as patient arm positioning and what we are able to accomplish to perform an I&D of the open fracture, and then a closed versus open reduction and possibly internal fixation. The risks and benefits of operative treatment were discussed with the patient and the patient wishes to proceed with surgery. These risks include, but are not limited to risk of damage to blood vessels, nerves, tendons, infection, recurrence, incomplete relief of preoperative symptoms, persistent pain, possible need for further surgery and the risks associated with regional blocks and anesthesia. The plan is to take the patient to the operating room today for the following procedures: 1. I&D open right ulnar shaft fracture 2. Closed versus open reduction and internal fixation of the right distal radius fracture All of the preoperative paperwork including the consent was filled out today and signed. All the patient's questions were answered. Time Spent With Patient Time: Total time managing care of this patient today ____ minutes.
--- NOTE | 2024-07-01 14:56 | MHC.CM.PN ---
Per MD rounds no dc today. Patient is scheduled for surgical intervention R distal radius open FX today. DP Return to . She will transport via BLS. Patient is a Bedhold.
--- NOTE | 2024-07-01 15:55 | MHC.CLN ---
NUTRITION CONSULT FOR CACHECTIC. PATIENT CURRENTLY NPO FOR RIGHT WRIST ORIF. UNABLE TO VISIT TODAY SINCE OUT FOR PROCEDURE. PREVIOUSLY MALNOURISHED INDIVIDUAL (05/27/24 NUTRITION ASSESSMENT). HAD ENSURE TID PRIOR ADMIT (PREFERS CHOCOLATE). ADD ENSURE TID (1050 KCALS, 60 G PROTEIN) ABLE. FOLLOW FOR DIET ADVANCEMENT AND PO INTAKE. SEE CLINICAL NUTRITION ASSESSMENT 07/01/24.
--- NOTE | 2024-07-01 16:51 | W.PM.OPN ---
Operative Note Operative Note Date of Service: 07/01/24 Narrative: Operative Note Narrative: Preop diagnosis: 1. Right Closed Distal radius fracture, comminuted 2. Right open ulna shaft fracture Postop diagnosis: Same Procedure: 1. Right Distal radius fracture open reduction internal fixation, 2 part comminuted 2. Right open ulnar shaft fracture I&D of open fracture 3. Right distal ulnar shaft fracture open reduction internal fixation Surgeon: Kriss Angulo MD Personal Banking Officer: None Anesthesia: Regional block plus sedation Findings: 1 cm open wound over the dorsal ulnar aspect of the wrist upon exploration found to be continuous with the distal ulnar shaft fracture site. Metaphyseal comminution of the distal radius Implants: A 3 hole narrow Accu Med volar locking plate, with 4x2.3 mm locking pegs/screws, and 1 X 3.5 mm cortical screws, and 2 X 3.5 mm locking screws Tourniquet time: 69 minutes EBL: 5.0 ml Specimen: None Drains: None Complications: None Disposition: Brought to the recovery room in stable condition Plan: Admit back to the floor. She can be discharged either today or tomorrow on oral antibiotics for the open ulna fracture NO DRESSING CHANGE. She will stay in the sugar-tong splint until follow-up in 10-14 days. Follow-up in 10-14 days for wound check, suture removal and postop radiographs Consider possible removal of the ulnar K-wire at 2 weeks. If no evidence of healing may leave in until 4 weeks. The patient will be placed in either a short-arm cast . Please encourage active and passive range of motion of the digits. Indications: The patient is a 64 year old woman who fell at her rehab/usp facility 2 days ago sustaining comminuted distal radius fracture and an open distal ulnar shaft fracture. The patient is also status post a CVA in November resulting in some spasticity to her right upper extremity . The risks and benefits of operative treatment, including but not limited to risk of damage to blood vessels, nerves, tendons, infection, recurrence, persistent pain or numbness, incomplete resolution of preoperative symptoms, or need for further surgery were discussed with the patient and they wished to proceed with surgery. Procedure: Once consent was obtained patient was brought back to the operating suite and placed in the operating table in a supine position. A regional block was performed by the anesthesia team. Perioperative antibiotics and sedation was administered by the anesthesia team. A tourniquet was applied to the proximal aspect of the right upper extremity and the limb was prepped and draped in a standard surgical fashion. The limb was elevated exsanguinated with Esmarch bandage and the tourniquet inflated to 250 mm of mercury for a total tourniquet time of 69 minutes. The FluoroScan was used throughout the case to assess our reduction, and facilitate implant placement. There was a 1 cm open wound over the dorsal ulnar aspect of her right distal forearm. The wound extended deeply to the ulnar shaft fracture, thus this is an open fracture. I performed an I&D of this ulnar shaft fracture. This was done using a small curette, and copious irrigation of the fracture site using both a bulb syringe and an Angiocath on a 20 mL syringe. My attention was then turned to the distal radius fracture. I made an 8 cm longitudinal incision over the distal aspect of the flexor carpi radialis tendon. The incision was made through the skin to the subcutaneous tissue using a 15. Blade. Then carefully dissected down to flexor carpi radialis tendon she tenotomy scissors. The FCR tendon sheath was then incised longitudinally using tenotomy scissors under direct visualization. The FCR tendon was then retracted ulnarly. I then made a longitudinal incision in the volar forearm fascia through the floor of FCR tendon sheath using tenotomy scissors under direct visualization. I identified the interval between the radial artery and the flexor tendons. This interval was developed further with my index finger, releasing some of the muscular fibers of the flexor pollicis longus. A dull weatlander retractor was then placed. I then created an ulnarly based flap of the pronator quadratus by releasing the radial and distal edges using a 15. Blade. A Stein elevator was used to elevate the pronator quadratus from the volar surface of the distal radius. This then revealed to us our distal radius fracture. This was a comminuted metaphyseal fracture. The shaft was noted to be volar to the more distal fragment, and the distal fragment was noted to be shortened and radially deviated and translated. I performed a tenotomy of the brachioradialis tendon to facilitate our reduction. An open reduction was then performed on our distal radius fracture. I then placed a short narrow 3 hole [facility] volar locking plate on the volar surface of the distal radius. I placed a single K-wire through the distal aspect of the plate and into the distal radius. This was assessed using fluoroscopic images. I was satisfied with the placement of our plate. I then placed 4 X 2.3 mm locking screws/pegs in the distal aspect of the plate and distal radius by 1st drilling bicortically with a 1.8 mm drill bit, measuring with a depth gauge, and placing the appropriate length locking screws/pegs. The placement of our plate and screws was then assessed again using fluoroscopic images. The once satisfied with the placement of the volar locking plate and screws on the distal aspect of the distal radius, the plate was then reduced to the shaft of the radius. I then placed 3 3.5 mm cortical screws to the proximal aspect of the plate and into the shaft of the radius. Two of these were locking screws and 1 was a cortical nonlocking screw. This was done by 1st drilling bicortically with a 2.8 mm drill bit, measuring with a depth gauge, and placing the appropriate length screw. Final radiographs were then obtained. The DRUJ was assessed and found to be stable on exam. I then turned my attention to the distal ulna fracture. An open reduction was performed of the distal ulna fracture. I then passed a 0.062 K-wire retrograde through the ulnar styloid. This was then advanced retrograde across the fracture site and down the shaft of the ulna. Once satisfied with the placement of this K-wire it was bent cut short and had a pin cap applied, so that it would not travel down the ulnar shaft. I was satisfied with our reduction and placement of all implants. At this point the wounds were again irrigated with normal saline. The tourniquet was then deflated and hemostasis was obtained with a brief period of local pressure and bipolar monopolar electrocautery. The skin edges were reapproximated using some 4-0 Prolene suture. A sterile dressing and a sugar-tong splint allowing for active flexion and extension of the digits and holding the forearm in neutral rotation was applied. The patient appears to have tolerated the procedure well and with no complications. All digits were well vascularized conclusion of the case, with improved cap refill compared with before surgery..
[2024-07-01 20:04] LABS: Vancomycin Random 11.8 mcg/mL (15-20)
--- NOTE | 2024-07-01 20:09 | HE.PHANOTE ---
WILFRED Changing dose to 750 Q8H as the patient has had 2 subtheraprutic troughs. Renal function is stable and has improved. Changing for at least one day to try and get patient trough higher. Predicted trough:16.6, predicted AUC: 577. Next trough to be drawn 07/02 @1999.
[2024-07-01] MEDS: rOPINIRole HCL 2 MG TABLET PO (20:22)
[2024-07-01] MEDS: vancomycin HCL 750 MG in 0.9 % Sodium Chloride 250 ML 265 MG IV (22:02)
[2024-07-02] MEDS: ceFAZolin Sodium/Dextrose,Iso 2 GM/50 ML PIGGYBACK IV ×2 (00:05→07:28)
[2024-07-02] MEDS: Lactated Ringers 1,000 ML 80 ML IVCONT (00:42)
[2024-07-02] MEDS: guaiFENesin LA 600 MG TAB.ER.12H PO (02:36)
[2024-07-02 02:41] VITALS: BP 139/66; PULSE 67; RESP 18; TEMP 36.1; O2SAT 97
[2024-07-02] MEDS: vancomycin HCL 750 MG in 0.9 % Sodium Chloride 250 ML 265 MG IV (05:02)
[2024-07-02 07:02] LABS: MANUAL DIFF FLAG NO
[2024-07-02] MEDS: oxyCODONE HCl Immed Release 5 MG TABLET PO ×2 (07:09→12:07)
[2024-07-02 07:21] LABS: Basophils Percent Auto 0.1 % (0-2); Eosinophils Percent Auto 0.2 % (0-4); Hematocrit 28.4 % (37.0-47.0); Hemoglobin 8.2 g/dl (12.0-16.0); Imm Gran Abs Auto 0.05 X10*3/uL (0.00-0.03); Imm Gran Pct Auto 0.6 % (0.0-0.4); Lymphocytes Absolute Auto 0.5 X10*3/uL (1.2-4.9); Lymphocytes Percent Auto 6.4 % (20-40); Mean Corpuscular HGB Conc 28.9 g/dl (31.0-35.0); Mean Corpuscular Hemoglobin 25.5 pg (27.0-33.0); Mean Corpuscular Volume 88.5 fL (80.0-98.0); Mean Platelet Volume 9.2 fL (9.4-12.3); Monocytes Absolute Auto 0.7 X10*3/uL (0.1-1.2); Monocytes Percent Auto 8.7 % (2-11); Neutrophils Absolute Auto 7.1 x10*3/uL (2.0-8.3); Platelet Count 169 X10*3/uL (160-400); Red Blood Count 3.21 X10*6/uL (4.20-5.50); Red Cell Distribution Width 23.8 % (11.0-16.0); White Blood Count 8.4 X10*3/uL (4.8-10.8)
[2024-07-02 07:33] LABS: Anion Gap 10 (12-20); Blood Urea Nitrogen 8 mg/dL (9-16); Calcium 8.4 mg/dL (8.4-10.2); Carbon Dioxide 27 mmol/L (22-29); Chloride 105 mmol/L (96-108); Creatinine Clr Calc Pharmacy 76.4; Estimated Glomerular Filt Rate > 60; Glucose Fasting 104 mg/dL (60-99); Potassium 4.3 mmol/L (3.3-5.1); Sodium 138 mmol/L (135-145)
[2024-07-02 07:40] VITALS: BP 139/68; PULSE 65; RESP 12; TEMP 36.4; O2SAT 97
[2024-07-02] MEDS: Ferrous Sulfate 324 MG TABLET.DR PO (07:57)
[2024-07-02] MEDS: Doxycycline Monohydrate 100 MG CAPSULE PO (09:33)
[2024-07-02 10:48] VITALS: BP 139/68; PULSE 65; O2SAT 97
--- NOTE | 2024-07-02 11:43 | P.PNIM_ITS ---
Subjective Subjective Date of Service: 07/02/24 Interval History: Follow-up for patient admitted to Orthopedics for acute comminuted and displaced radial and fractures no new complaint Physical Exam 2 Vital Signs: Vital Signs: Last Vital Signs Temp 97.6 F 07/02/24 07:40 Pulse 65 07/02/24 10:48 Resp 12 07/02/24 07:40 BP 139/68 07/02/24 10:48 Pulse Ox 97 07/02/24 10:48 O2 Del Method Nasal Cannula 07/02/24 07:40 O2 Flow Rate 2 07/02/24 07:40 Oxygen Flow Rate 1 06/29/24 18:13 BMI result Body Mass Index 16.2 Const: Other: General: AO X 3, no acute distress Resp: CTA bilateral CVS: S1,S2,RRR GI: +BS, NT, no distention Skin: No rash MSK: right arm splint/dressing in place Neuro: motor grossly intact Psych: appropriate affect Objective Data Active Medications Acetaminophen (Acetaminophen 325 Mg Tablet) 650 mg PO Q6H PRN PRN Reason: Pain, Mild (Pain Scale 1-3), fever or headache Albuterol Sulfate (Albuterol Sulfate (0.042%) 1.25 Mg/3 Ml Vial.Neb) 2.5 mg INHALE Q4H PRN PRN Reason: shortness of breath or wheezing Albuterol Sulfate (Albuterol Sulfate 90 Mcg 8 Gm Inhaler) 2 puff INHALE QID PRN PRN Reason: for wheezing Apixaban (Apixaban 5 Mg Tablet) 5 mg PO BID [facility] Atorvastatin Calcium (Atorvastatin Calcium 80 Mg Tablet) 80 mg PO BEDTIME [facility] Last Admin: 07/01/24 20:21 Dose: Not Given Documented By: RO Non-Admin Reason: Patient Refused Docusate Sodium (Docusate Sodium 100 Mg Capsule) 100 mg PO BID [facility] [place] Last Admin: 07/02/24 07:51 Dose: Not Given Documented By: DAVID Non-Admin Reason: Patient Refused Doxycycline Monohydrate (Doxycycline Monohydrate 100 Mg Capsule) 100 mg PO Q12H [facility] [place] Last Admin: 07/02/24 09:33 Dose: 100 mg Documented By: DAVID Ferrous Sulfate (Ferrous Sulfate 324 Mg Tablet.) 324 mg PO DAILY [facility] [place] Last Admin: 07/02/24 07:57 Dose: 324 mg Documented By: DAVID Fluticasone/Vilanterol (Fluticasone/Vilanterol 200/25 Blst.W.Dev) 1 puff INHALE RDAILY [facility] [place] Last Admin: 07/02/24 08:22 Dose: Not Given Documented By: GRADY Non-Admin Reason: pt refuses dry powder inhaler. MD kahn Guaifenesin (Guaifenesin La 600 Mg Tab.Er.12h) 600 mg PO BID PRN PRN Reason: Cough Last Admin: 07/02/24 02:36 Dose: 600 mg Documented By: RO Hydromorphone HCl (Hydromorphone Hcl 0.5 Mg/0.5 Ml Syringe) 0.5 mg IVPUSH Q4H PRN; Protocol PRN Reason: Pain, Severe (Pain Scale 7-10) Last Admin: 07/01/24 05:37 Dose: 0.5 mg Documented By: RO Omeprazole (Omeprazole 20 Mg Capsule.Dr) 20 mg PO DAILY PRN PRN Reason: Acid Reflux Ondansetron HCl (Ondansetron Hcl 4 Mg/2 Ml Vial) 4 mg IVPUSH Q6H PRN PRN Reason: Nausea and Vomiting Last Admin: 06/30/24 21:58 Dose: 4 mg Documented By: RO Oxycodone HCl (Oxycodone Hcl Immed Release 5 Mg Tablet) 5 mg PO Q4H PRN PRN Reason: Pain, Moderate(Pain Scale 4-6) Last Admin: 07/02/24 07:09 Dose: 5 mg Documented By: RO Pharmacy Consult (Consult Rx Vancomycin Dosing) 1 each MISCELLANE DAILY PRN PRN Reason: Consult order Pramipexole Dihydrochloride (Pramipexole Di-Hcl 0.125 Mg Tablet) 0.125 mg PO BEDTIME PRN PRN Reason: restless leg syndrome Ropinirole HCl (Ropinirole Hcl 2 Mg Tablet) 2 mg PO BEDTIME [facility] [place] Last Admin: 07/01/24 20:22 Dose: 2 mg Documented By: RO Sodium Chloride (0.9 % Sodium Chloride Flush 3 Ml Syringe) [facility] Last Admin: 07/02/24 07:28 Dose: Not Given Documented By: DAVID Non-Admin Reason: IV Running Labs 07/02/24 06:23 07/02/24 06:23 Labs: Laboratory Results - last 24 hr 07/01/24 07/02/24 19:33 06:23 MCV 88.5 MCH 25.5 L MCHC 28.9 L RDW 23.8 H Plt Count 169 MPV 9.2 L Immature Gran % (Auto) 0.6 H Neut % (Auto) 84.0 H Lymph % (Auto) 6.4 L [place] % (Auto) 8.7 Eos % (Auto) 0.2 Baso % (Auto) 0.1 Lymph # (Auto) 0.5 L [place] # (Auto) 0.7 Eos # (Auto) 0.0 Baso # (Auto) 0.0 Abs Immat Gran (auto) 0.05 H Absolute Neuts (auto) 7.1 Absolute Nucleated RBC 0.000 Nucleated RBC % (auto) 0.0 Anion Gap 10 L Estim Creat Clear Calc 76.4 Estimated GFR > 60 Fasting Glucose 104 H Calcium 8.4 Random Vancomycin 11.8 L Microbiology Microbiology Results: Microbiology 06/30/24 Unknown Urine Culture - Final Urine Catheterized - Straight Catheter Escherichia coli Assessment and Plan (1) Fracture of radius, distal, with ulna, right, open: Status: Acute Plan Patient is a 64-year-old female with a complicated PMH significant for multiple recent emboli 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 Patient presented to the hospital from [facility] with right wrist pain s/p mechanical fall. X-rays of right knee and right elbow negative for acute fracture of subluxation. Patient was admitted to the hospital under orthopedic services. Hospitalist consult for medical management. Open comminuted and displaced radial and ulnar fractures d/t mechanical fall s/p operative fixation on 07/01 continu empiric Abx, change to Doxy UTI d/t ecoli, pansentive. add oral ceftin Hx of CVA resume elquis later today per surgery Continue atorvastatin Seen by speech and swallow last month, recommended NDD3 diet with thin liquids COPD Not in acute exacerbation Continue home inhalers Peripheral neuropathy Continue ropinirole GERD PPI Severe protein calorie malnutrition Ensure t.i.d. Nutrition consult Thank you for allowing us to participate in the care of this patient. Will continue to follow along with you. from medical stand point can be discharge Quality Stroke Does the patient have a stroke diagnosis?: Yes Reason for No Anti-thrombotic by Day Two: Contraindicated (Holding for potential surgical intervention) VTE Prior VTE?: No VTE Risk Level:: Medical - moderate - high VTE Device Contraindication: N/A - Device Ordered VTE Drug Contraindication: Treatment Not Indicated (Anticoagulant held for potential surgical intervention)
[2024-07-02] MEDS: cefuroxime axetiL 250 MG TABLET PO (12:06)
--- NOTE | 2024-07-02 12:20 | MHC.CM.PN ---
Patient is discharged today. She will return to [facility]. She will transport via BLS at 3pm.
--- NOTE | 2024-07-02 12:24 | PM.DS ---
DS: Providers Provider Date of Service: 07/02/24 Date of admission: 06/29/24 19:09 Primary care physician: Melissa Peña MD Consults: 06/29/24 18:12 Consult to Hospitalist Stat Comment: Consulting Provider: Hospitalist Reason For Exam: med managment 06/29/24 19:01 Consult to Hospitalist Stat Comment: Consulting Provider: Hospitalist Reason For Exam: Abx recs open fx, anticoag s/p CVA, surgery Mon DS: Diagnosis Discharge Diagnosis (1) Fracture of radius, distal, with ulna, right, open: Status: Acute DS: Summary Hospital Course Hospital Course: Patient was admitted to the hospital for open fx of r distal radius and ulna Patient underwent I&D, ORIF of distal Radius, and CRPP of distal ulna on 07/01/24 Wound was clean Patient also received IV abx both pre and post operatively Patient to be discharged on oral cefuroxime and doxycycline Patient was placed into a sugar tong splint post-operatively, and also recieved a nerve block in the RUE Patient's Eliquis to be resumed on 07/02/24 No other acute concerns while in hospital Time Attestation Discharge Coordination Time (in mins): 30 min Quality: Safe Use of Opioids Does Pt have an Active Cancer Diagnosis on the Problem List?: Yes Opioid Measure Date for [facility] Report: 06/02/24 Opioid Measure Time for [facility] Report: 12:30 Quality: Stroke Does the patient have a stroke diagnosis?: Yes Reason for No Anti-thrombotic at DC: Not indicated Reason for No Anticoagulant at DC: N/A - Med Ordered Reason Not Initiating IV-Tpa: Drug treatment not indicated Reason for No Anti-thrombotic by Day Two: Drug treatment not indicated Reason for No Statin at DC: Drug treatment not indicated Physical Exam Vital Signs: Vital Signs: Last Vital Signs Temp 97.6 F 07/02/24 07:40 Pulse 65 07/02/24 10:48 Resp 12 07/02/24 07:40 BP 139/68 07/02/24 10:48 Pulse Ox 97 07/02/24 10:48 O2 Del Method Nasal Cannula 07/02/24 07:40 O2 Flow Rate 2 07/02/24 07:40 Oxygen Flow Rate 1 06/29/24 18:13 BMI result Body Mass Index 16.2 Extrem: Other: Patient is alert, oriented, and in no acute distress. Neuro:No sensation in the digits of the RUE, secondary to nerve block Vascular: Cap refill brisk Pain: Patient reports no pain in the RUE at this time ROM: Patient is unable to move the digits of the RUE at this time, but has very limited function at baseline and had nerve block Sugar tong splint in place Psych: Appears grossly normal Affect normal Attitude cooperative DS: Data Data Completed and Pending Completed studies during hospitalization [Text1]: Procedures Excision of Stomach, Pylorus, Via Natural or Artificial Opening Endoscopic, Diagnostic (07/19/21) Transfusion of Nonautologous Red Blood Cells into Peripheral Vein, Percutaneous Approach (07/19/21) Labs on day of discharge: Laboratory Results - last 24 hr 07/01/24 07/02/24 19:33 06:23 WBC 8.4 RBC 3.21 L Hgb 8.2 L Hct 28.4 L MCV 88.5 MCH 25.5 L MCHC 28.9 L RDW 23.8 H Plt Count 169 MPV 9.2 L Immature Gran % (Auto) 0.6 H Neut % (Auto) 84.0 H Lymph % (Auto) 6.[address] % (Auto) 8.7 Eos % (Auto) 0.2 Baso % (Auto) 0.1 Lymph # (Auto) 0.[address] # (Auto) 0.7 Eos # (Auto) 0.0 Baso # (Auto) 0.0 Abs Immat Gran (auto) 0.05 H Absolute Neuts (auto) 7.1 Absolute Nucleated RBC 0.000 Nucleated RBC % (auto) 0.0 Sodium 138 Potassium 4.3 Chloride 105 Carbon Dioxide 27 Anion Gap 10 L BUN 8 L Creatinine 0.47 L Estim Creat Clear Calc 76.4 Estimated GFR > 60 Fasting Glucose 104 H Calcium 8.4 Random Vancomycin 11.8 L Discharge Plan Discharge Anticipated Discharge Date/Time: 07/02/24 15:00 Patient Disposition: Xfer Inpatient Rehab Fac Discharge Diagnosis: Open Fx R distal radius and distal ulna Referrals: [facility] [Outside] - 1 Week Melissa Peña MD [Primary Care Provider] - 1 Week Kriss Angulo MD [Physician] - 2 Weeks (07/17/2024 134) Discharge Medications: New cefuroxime axetil 250 mg Tablet 250 mg PO BID Qty: 5 0RF doxycycline monohydrate 100 mg Capsule 100 mg PO Q12H 5 Days Qty: 10 0RF docusate sodium 100 mg Capsule 100 mg PO BID 30 Days Qty: 60 0RF oxycodone-acetaminophen 5-325 mg tablet 1 tab PO Q6H PRN (Reason: pain, severe) Qty: 25 0RF Rx Instructions: Partial Fill upon patient request. Continued albuterol sulfate 1.25 mg/3 mL solution for nebulization 2.5 mg inhalation Q4-6H PRN (Reason: shortness of breath or wheezing) 30 Days Qty: 90 3RF budesonide-formoterol [Symbicort] 160-4.5 mcg/actuation HFA aerosol inhaler 2 puff PO BID Qty: 10.2 5RF albuterol sulfate [Ventolin HFA] 90 mcg/actuation HFA aerosol inhaler 2 puff inhalation QID PRN (Reason: for wheezing) Qty: 18 0RF ropinirole 1 mg tablet 2 mg PO BEDTIME pramipexole 0.125 mg tablet 0.125 mg PO BEDTIME PRN (Reason: restless leg syndrome) Rx Instructions: Patient uses if ropinirole is ineffective pantoprazole 40 mg tablet,delayed release (DR/EC) 40 mg PO DAILY PRN (Reason: Acid Reflux) Eliquis 5 mg Tablet 5 mg PO BID Qty: 180 0RF atorvastatin 80 mg Tablet 80 mg PO BEDTIME Qty: 90 0RF oxycodone 5 mg/5 mL solution 5 mg PO Q8H PRN (Reason: severe pain) 10 Days Qty: 100 0RF acetaminophen 325 mg Tablet 650 mg PO Q6H PRN (Reason: Pain) ascorbic acid (vitamin C) [Vitamin C] 500 mg Tablet 500 mg PO DAILY ferrous sulfate 325 mg (65 mg iron) Tablet 325 mg PO DAILY Icy Hot (menthol) 5 % Adhesive Patch,Medicated 1 patch TOPICAL BID Rx Instructions: left knee Discharge Orders: Discharge Order (Routine); Ordered 07/02/24 Ordered By: Ravi Jenkins Activity on Discharge: No heavy lifting Stand Alone Forms: Patient Portal Discharge page Print Language: Azeri Care Plan Goals: Restore baseline function of right wrist and hand Prevention of infection due to open fracture Health Concerns: Open Fx of R distal radius and distal ulna S/P ORIF and I&D Plan of Treatment: Patient was evaluated and treated in the hospital for open fracture of right distal radius and distal ulnar shafts Patient underwent I and D and open reduction internal fixation of the right distal radius, as well as closed reduction percutaneous pinning of the right distal ulna, on 07/01/2024 Procedure went very well with no complications 5 days of postoperative antibiotics necessary for prevention of infection Splint on right wrist and arm must remain clean, dry, intact at all times Please cover while bathing and avoid from getting wet or dirty If splint gets wet or dirty, please call our clinic for splint change as soon as possible Patient will follow-up in 2 weeks in our clinic at [address] [place] [address] for repeat assessment, repeat x-rays, and placement into a cast with potential pulling of pin depending on healing Resume anticoagulation tonight Resume all other home medications Patient given script for 25 tablets of oxycodone for postoperative pain, to be taken as needed Follow-up appointment booked for 07/17/[address] Angulo Assessment: Stable for discharge
[2024-07-02 12:46] VITALS: BP 151/69; PULSE 68; RESP 18; TEMP 37; O2SAT 94
[2024-07-02] MEDS: Lidocaine 4 % Patch ADH..PATCH 1 PATCH TRANSDERMA (13:17)
== END 2024-07-02 16:28 | DRG 315 ==
LOC: HO.ED 16:22 → HO.EDOVER 19:40 → HO.S3 06-30 01:45
PROVIDERS: Orthopaedic Surgery; Physician Assistant; Student in an Organized Health Care Education/Training Program; Emergency Provider Emergency Medicine; PCP Internal Medicine
PROC: 0PSH04Z Reposition Right Radius with Internal Fixation Device, Open Approach (ICD-10-PCS; principal; 2024-07-01 12:00)
DX: S52.501A Unspecified fracture of the lower end of right radius, initial encounter for closed fracture (principal); E43 Unspecified severe protein-calorie malnutrition; I69.351 Hemiplegia and hemiparesis following cerebral infarction affecting right dominant side; S52.601B Unspecified fracture of lower end of right ulna, initial encounter for open fracture type I or II; W01.0XXA Fall on same level from slipping, tripping and stumbling without subsequent striking against object, initial encounter; F17.210 Nicotine dependence, cigarettes, uncomplicated; G89.18 Other acute postprocedural pain; J44.9 Chronic obstructive pulmonary disease, unspecified; N39.0 Urinary tract infection, site not specified; G62.9 Polyneuropathy, unspecified; K21.9 Gastro-esophageal reflux disease without esophagitis; Z68.1 Body mass index [BMI] 19.9 or less, adult; Z85.21 Personal history of malignant neoplasm of larynx; Z71.6 Tobacco abuse counseling; Z79.01 Long term (current) use of anticoagulants; Z79.899 Other long term (current) drug therapy
CPT/HCPCS: 36415; 70450; 71260; 72125; 73070; 73100; 73110; 73130; 73560; 74177; 80048; 80053; 80202; 81001; 83735; 84484; 85025; 85610; 87086; 87088; 87186; 93005; 97162; 99285; C1713; J0171; J0665; J0690; J1100; J1171; J2003; J2250; J2270; J2405; J2704; J3370; J7120; Q9967

== ENCOUNTER → 2024-06-29 09:15 | Outpatient (BNV) | payer OTHER, SELFPAY | PROVIDERS: Emergency Provider Emergency Medicine; PCP Internal Medicine; Visit Provider Internal Medicine Cardiovascular Disease | DX: R94.31 Abnormal electrocardiogram [ECG] [EKG] (principal) | CPT/HCPCS: 93010 ==

== ENCOUNTER → 2024-06-29 09:33 | Outpatient (BNV) | payer OTHER, SELFPAY | PROVIDERS: Emergency Provider Emergency Medicine; PCP Internal Medicine | DX: S52.501B Unspecified fracture of the lower end of right radius, initial encounter for open fracture type I or II (principal); S52.601B Unspecified fracture of lower end of right ulna, initial encounter for open fracture type I or II | CPT/HCPCS: 25608; 25652; 99024; 99223; 99233 ==

== ENCOUNTER → 2024-06-29 19:09 | Outpatient (BNV) | payer OTHER, SELFPAY | PROVIDERS: Emergency Provider Emergency Medicine; PCP Internal Medicine; Visit Provider Student in an Organized Health Care Education/Training Program | DX: N39.0 Urinary tract infection, site not specified (principal); R00.0 Tachycardia, unspecified; E43 Unspecified severe protein-calorie malnutrition | CPT/HCPCS: 99222; 99232 ==

== ENCOUNTER 2024-07-17 09:03 | Outpatient (REF) | payer OTHER, SELFPAY | END 2024-07-17 09:04 | disposition home or self-care (01) | LOC: HO.HOSX 09:03 | PROVIDERS: Visit Provider Orthopaedic Surgery | DX: M25.531 Pain in right wrist (principal); S52.501B Unspecified fracture of the lower end of right radius, initial encounter for open fracture type I or II; S52.601B Unspecified fracture of lower end of right ulna, initial encounter for open fracture type I or II; F17.200 Nicotine dependence, unspecified, uncomplicated; M79.7 Fibromyalgia | CPT/HCPCS: 73110; 99212 ==

== ENCOUNTER 2024-07-17 13:07 | Outpatient (AMB) | payer OTHER, SELFPAY ==
--- NOTE | 2024-07-17 13:58 | MHC.OFFVIS ---
Intake Visit Reasons: PO-fx R distal radius-DOS 07/01/24 Intake Note: Soraida 64 yr old right hand dominant female presents today for her P/O visit for her right hand distal radius fx DOS 07/01/24. Dressing removed and xrays updated in office. States she has pain and was given pain medication at the facility she is at. Allergies aspirin Adverse Reaction (Mild, Verified 07/17/24 14:09) Vomiting HPI HPI PO-fx R distal radius-DOS 07/01/24: Details: Soraida is a 64 year old right hand dominant woman who presents S/P right distal radius ORIF, ulnar shaft I&D, and ulnar shaft ORIF, DOS: 07/01/24. She says that she has been working with PT at her longterm facility to try to improve range of motion of her right elbow and forearm. She is feeling a little more sore now that her cast has been removed. She resides in a longterm facility due to a recent Hx of CVA in 11/2023. [facility] Medical History Embolic stroke Embolic cerebral infarction Multiple cerebral infarctions Pulmonary nodule 1 cm or greater in diameter Squamous cell carcinoma of epiglottis Weight loss, unintentional Skin lesion of back Immunization declined Fracture of proximal end of fibula Contusion of leg, right Vaccination declined by patient Cervical lymphadenopathy Carotid stenosis, right Microcytic hypochromic anemia Left cervical lymphadenopathy Bilateral carotid bruits Smoker Idiopathic hypercalciuria Thyroid nodule Hx of angiography Vitamin D deficiency Goiter History of tachycardia GERD (gastroesophageal reflux disease) Gastritis Duodenitis Pyloric ulcer History of alcohol abuse Myopia of both eyes Papanicolaou smear declined Mammogram declined Smoker unmotivated to quit Restless leg syndrome Aortoiliac occlusive disease Tubular adenoma of colon Chronic Helicobacter pylori gastritis COPD (chronic obstructive pulmonary disease) Fibromyalgia Peripheral vascular disease Osteoporosis Surgical History (Reviewed 07/17/24 @ 14:09 by Deepthi Pelletier [facility]) Hx of coronary angiogram History of removal of skin mole Hx of colonoscopy History of surgery on lower extremity Hx of foot surgery History of surgical removal of lesion (~10/28/21) History of lung biopsy (~04/2021) History of exploratory thoracotomy (~04/2018) History of tonsillectomy History of endarterectomy (~05/2020) History of ankle surgery (~11/2011) History of myringotomy History of appendectomy History of tubal ligation Family History Father Substance use disorder Mother Osteoporosis Substance use disorder Brother Substance use disorder Sister Substance use disorder Lung cancer Sister Substance use disorder Brother Substance use disorder Social History (Reviewed 07/17/24 @ 14:09 by Deepthi Pelletier [facility]) Household Members: None Housing: Half-Way Housing Other:: Rehab Are you a primary disabilities caregiver to a significant other at home: No Do you presently have visiting nurse or other home services: No Unable to assess alcohol history related to: Unknown Alcohol intake: former Patient Tobacco Use Status: Current everyday Tobacco user Tobacco use type: Cigar Cigarette Packs Per Day: 0.5 Cigarettes Per Day: 4 Years Smoked: 50+ e-Cigarette/Vaping Use: Never Used Second Hand Smoke Exposure: No Advance Directives Date on File: 12/12/23 service: No Current occupational status: disabled Current occupation: rt handed Current occupational exposures/hazards: No Cognitive needs: No Hearing needs: No Vision needs: Yes Review of Systems Const All systems reviewed & are unremarkable except as noted in HPI and below Physical Exam Const General: no acute distress and alert Orientation/consciousness: patient oriented x3 Neuro General: patient oriented x3 Extrem Other: The patient was alert oriented and in no acute distress The incision is healing well with no erythema drainage or evidence of infection. Sutures removed and Steri-Strips applied She has been wearing a Sugar-tong splint since her surgery, and is has some stiffness as would be expected. With encouragement she was able to bring her fingers close to a fist and back into full extension. With encouragement she could fully extend her elbow, however if she does not focus on maintaining this position, she flexes her elbow and fully pronates her hand, likely related to her CVA ~65 degrees pronation today ~30 degrees supination Both Fracture sites non-tender DRUJ appears to be stable. The K-wire traversing the ulna fracture has withdrawn beneath skin and the length of the K-wire is in the shaft of the ulna, and the shortened bent part is lying against the ulna. Not palpable & not protruding beneath skin. We will allow to remain as retained implant. Sensation is intact Cap refill is brisk Radiographs: 3 views of the right wrist were taken and viewed by me today in clinic. They show a distal radius fracture and ulnar shaft fracture both with satisfactory fracture alignment and position of all implants. Psych Appearance: grossly normal Affect: normal affect Attitude: cooperative Assessment & Plan Assessment & Plan (1) Fracture of radius, distal, with ulna, right, open: Code(s): S52.501B - Unspecified fracture of the lower end of right radius, initial encounter for open fracture type I or II; S52.601B - Unspecified fracture of lower end of right ulna, initial encounter for open fracture type I or II Category: Medical (2) Smoker unmotivated to quit: Comment: Patient continues to smoke, half pack of cigarettes a day, she is not well motivated to quit smoking completely. Risks of continued smoking explained to her. Code(s): F17.200 - Nicotine dependence, unspecified, uncomplicated Category: Social Hx (3) Fibromyalgia: Code(s): M79.7 - Fibromyalgia Category: Medical Plan Assessment & Plan: 1. Right distal radius fracture, S/P ORIF 2. Right ulnar shaft fracture, open, S/P I&D & ORIF DOS: 07/01/24 From a fall, DOI: 06/21/24 The patient appears to be doing well post-operatively Her K-wire appears to have withdrawn beneath the skin and is largely within the shaft of the ulna, with the distal bent portion lying against the ulna and not palpable beneath the skin. This can be left as retained hardware at this time. I educated her about the post-operative course She was placed in a velcro wrist splint, to be worn like a cast except for showering & to work on ROM, for the next 2 weeks I explained the signs and symptoms of infection I explained the effects of smoking on wound/bone healing, and recommend they stop smoking while healing. They expressed understanding I discussed activity modifications, she is to lift nothing heavier than a cellphone for the next 4 weeks She will perform gentle ROM exercises at home out of her splint, she should also be sure to work on elbow ROM exercises and focus on wrist supination She will follow up in 2 weeks, with X-rays 3V R wrist, OOP. Anticipate discontinuing of her splint except for activities out of her house for a few additional weeks. Please note that greater than 30 minutes was spent with this patient going over the history, evaluating the patient and radiographs, formulating possible treatment options, discussing them with the patient, and documenting the visit. Scribed for Kriss Angulo MD by Primitivo Lloyd, medical staffing coordinator, on 07/17/24 at 2:45 PM, EST. Orders: Orders XR wrist RT min 3V Today M25.531 - Pain in right wrist Coding Level of Care Code Global (63319) Diagnoses Fracture of radius, distal, with ulna, right, open S52.501B; S52.601B Smoker unmotivated to quit F17.200 Fibromyalgia M79.7
--- OUTSIDE RECORDS SUMMARY | 2024-07-23 19:24 | XMS_ITS ---
Author Name [facility] Organization Unknown History of Medication Use Medication Directions Dispensed Refills Start Date End Date Stat clopidogrel (PLAVIX) 75 MG tablet Take 1 tablet (75 mg total) by mouth daily. 11/04/2023 active Symbicort 160-4.5 MCG/ACT inhaler Inhale 2 puffs 2 (two) times a day. 11/04/2023 active rOPINIRole (REQUIP) 1 MG tablet Take 1 tablet (1 mg total) by mouth nightly. 11/04/2023 active multivitamin with minerals Tab tablet Take 1 tablet by mouth daily. 11/04/2023 active cyanocobalamin (VITAMIN B12) 1000 MCG tablet Take 1 tablet (1,000 mcg total) by mouth daily. 11/04/2023 active albuterol, preservative free, (ACCUNEB) 1.25 mg/3 mL nebulizer solution INHALE 2.5 MG (6 ML) EVERY 4 TO 6 HOURS NEEDED FOR SHORTNESS OF BREATH OR WHEEZING FOR 30 DAYS 11/04/2023 active PANTOprazole (PROTONIX) 40 MG EC tablet Take 1 tablet (40 mg total) by mouth daily. 11/04/2023 active folic acid (FOLVITE) 1 MG tablet Take 1 tablet (1 mg total) by mouth daily. 11/04/2023 active Ventolin HFA 108 (90 Base) MCG/ACT inhaler Inhale 2 puffs 4 times daily (every 6 hours) as needed for wheezing or shortness of breath. 11/04/2023 active pramipexole (miraPEx) 0.125 MG tablet Take 1 tablet (0.125 mg total) by mouth nightly. 11/04/2023 active Problems Problem Status Onset Date Problem Type Date of Resoluti on Source Severe protein-calorie malnutrition active 2023-10-26 ProblemAct [facility] Drop in hemoglobin active 2023-10-25 ProblemAct [facility] Anemia active 2023-10-25 ProblemAct [facility] Neck mass active 2023-10-25 ProblemAct [facility] COPD (chronic obstructive pulmonary disease) active 2023-10-25 ProblemAct [facility] Dysphagia active 2023-10-25 ProblemAct [facility]
== END 2024-07-17 15:06 | disposition home or self-care (01) ==
PROVIDERS: PCP Internal Medicine; Visit Provider Orthopaedic Surgery
DX: S52.501B Unspecified fracture of the lower end of right radius, initial encounter for open fracture type I or II (principal); S52.601B Unspecified fracture of lower end of right ulna, initial encounter for open fracture type I or II; F17.200 Nicotine dependence, unspecified, uncomplicated; M79.7 Fibromyalgia
CPT/HCPCS: 99024

== ENCOUNTER 2024-07-31 09:19 | Outpatient (REF) | payer OTHER, SELFPAY | END 2024-07-31 09:20 | disposition home or self-care (01) | LOC: HO.HOSX 09:19 | PROVIDERS: Visit Provider Orthopaedic Surgery | DX: M25.531 Pain in right wrist (principal); S52.501B Unspecified fracture of the lower end of right radius, initial encounter for open fracture type I or II; S52.601B Unspecified fracture of lower end of right ulna, initial encounter for open fracture type I or II; F17.200 Nicotine dependence, unspecified, uncomplicated; M79.7 Fibromyalgia | CPT/HCPCS: 73110; 99212 ==

== ENCOUNTER 2024-07-31 12:37 | Outpatient (AMB) | payer OTHER, SELFPAY ==
--- NOTE | 2024-07-31 13:33 | A.OFFVIS_ITS ---
Intake Visit Reasons: PO-fx R distal radius-DOS 07/01/24 Intake Note: Soraida 64 yr old right hand dominant female presents today for her P/O visit for her right hand distal radius fx DOS 07/01/24. Patient reports she is doing well, states soreness in her wrist. She continues to work with OT. Allergies aspirin Adverse Reaction (Mild, Verified 07/31/24 13:43) Vomiting HPI HPI PO-fx R distal radius-DOS 07/01/24: Details: Soraida is a 64 year old right hand dominant woman who presents S/P right distal radius ORIF, ulnar shaft I&D, and ulnar shaft ORIF, DOS: 07/01/24. She says that she has been working with PT at her intermediate facility to try to improve range of motion of her right elbow and forearm. She resides in a intermediate facility due to a recent Hx of CVA in 11/2023. She says she still has some soreness in her wrist, but this has improved somewhat from prior. [facility] Medical History Embolic stroke Embolic cerebral infarction Multiple cerebral infarctions Pulmonary nodule 1 cm or greater in diameter Squamous cell carcinoma of epiglottis Weight loss, unintentional Skin lesion of back Immunization declined Fracture of proximal end of fibula Contusion of leg, right Vaccination declined by patient Cervical lymphadenopathy Carotid stenosis, right Microcytic hypochromic anemia Left cervical lymphadenopathy Bilateral carotid bruits Smoker Idiopathic hypercalciuria Thyroid nodule Hx of angiography Vitamin D deficiency Goiter History of tachycardia GERD (gastroesophageal reflux disease) Gastritis Duodenitis Pyloric ulcer History of alcohol abuse Myopia of both eyes Papanicolaou smear declined Mammogram declined Smoker unmotivated to quit Restless leg syndrome Aortoiliac occlusive disease Tubular adenoma of colon Chronic Helicobacter pylori gastritis COPD (chronic obstructive pulmonary disease) Fibromyalgia Peripheral vascular disease Osteoporosis Surgical History Hx of coronary angiogram History of removal of skin mole Hx of colonoscopy History of surgery on lower extremity Hx of foot surgery History of surgical removal of lesion (~10/28/21) History of lung biopsy (~04/2021) History of exploratory thoracotomy (~04/2018) History of tonsillectomy History of endarterectomy (~05/2020) History of ankle surgery (~11/2011) History of myringotomy History of appendectomy History of tubal ligation Family History Father Substance use disorder Mother Osteoporosis Substance use disorder Brother Substance use disorder Sister Substance use disorder Lung cancer Sister Substance use disorder Brother Substance use disorder Social History Household Members: None Housing: Group Home Housing Other:: Rehab Are you a primary care transition manager to a significant other at home: No Do you presently have visiting nurse or other home services: No Unable to assess alcohol history related to: Unknown Alcohol intake: former Patient Tobacco Use Status: Current everyday Tobacco user Tobacco use type: Cigar Cigarette Packs Per Day: 0.5 Cigarettes Per Day: 4 Years Smoked: 50+ e-Cigarette/Vaping Use: Never Used Second Hand Smoke Exposure: No Advance Directives Date on File: 12/12/23 service: No Current occupational status: disabled Current occupation: rt handed Current occupational exposures/hazards: No Cognitive needs: No Hearing needs: No Vision needs: Yes Review of Systems Const All systems reviewed & are unremarkable except as noted in HPI and below Physical Exam Const General: no acute distress and alert Orientation/consciousness: patient oriented x3 Neuro General: patient oriented x3 Extrem Other: Evaluation of Upper Extremity: The patient is alert, oriented, and in no acute distress The patient is seen in a wheelchair today. Sensation grossly intact to the tips of all digits Cap refill brisk ROM: With encouragement she was able to bring her fingers close to a fist and back into full extension. She has a significant tremor in her finger, and some trouble with voluntary control of her fingers and with wrist extension, likely due to weakness and the effects of her stroke which she had before her fracture With encouragement she could fully extend her elbow, however if she does not focus on maintaining this position, she flexes her elbow and fully pronates her hand, likely related to her CVA ~65 degrees pronation today ~30 degrees supination Both Fracture sites non-tender DRUJ appears to be stable. The K-wire traversing the ulna fracture has withdrawn beneath skin and the length of the K-wire is in the shaft of the ulna, and the shortened bent part is lying against the ulna. Not palpable & not protruding beneath skin. We will allow to remain as retained implant. Radiographs: 3 views of the right wrist were taken and viewed by me today in clinic. They show a distal radius fracture and ulnar shaft fracture both with satisfactory fracture alignment and position of all implants. Psych Appearance: grossly normal Affect: normal affect Attitude: cooperative Assessment & Plan Assessment & Plan (1) Fracture of radius, distal, with ulna, right, open: Code(s): S52.501B - Unspecified fracture of the lower end of right radius, initial encounter for open fracture type I or II; S52.601B - Unspecified fracture of lower end of right ulna, initial encounter for open fracture type I or II Category: Medical (2) Smoker unmotivated to quit: Comment: Patient continues to smoke, half pack of cigarettes a day, she is not well motivated to quit smoking completely. Risks of continued smoking explained to her. Code(s): F17.200 - Nicotine dependence, unspecified, uncomplicated Category: Social Hx (3) Fibromyalgia: Code(s): M79.7 - Fibromyalgia Category: Medical Plan Assessment & Plan: 1. Right distal radius fracture, S/P ORIF 2. Right ulnar shaft fracture, open, S/P I&D & ORIF DOS: 07/01/24 From a fall, DOI: 06/21/24 The patient appears to be doing well post-operatively Her K-wire appears to have withdrawn beneath the skin and is largely within the shaft of the ulna, with the distal bent portion lying against the ulna and not palpable beneath the skin. This can be left as retained hardware at this time. I educated her about the post-operative course She will continue to wear her velcro wrist splint when out of the house with daily activities for the next 2 weeks. She will remove this when at home at rest. I explained the signs and symptoms of infection I explained the effects of smoking on wound/bone healing, and recommend they stop smoking while healing. They expressed understanding I discussed activity modifications, she is to lift nothing heavier than a cellphone for the next 2 weeks She will perform gentle ROM exercises at home out of her splint, she should also be sure to work on elbow ROM exercises and focus on wrist supination She is brad to transition to her regular walker use as of 08/14/24 She will follow up with VAS[facility] Rodrigues in 4-6 weeks to see how she is doing. Scribed for Kriss Angulo MD by Primitivo Lloyd, biomedical scientist, on 07/31/24 at 2:05 PM, EST. Orders: Orders XR wrist RT min 3V Today M25.531 - Pain in right wrist Coding Level of Care Code Global (27803) Diagnoses Fracture of radius, distal, with ulna, right, open S52.501B; S52.601B Smoker unmotivated to quit F17.200 Fibromyalgia M79.7
== END 2024-07-31 14:12 | disposition home or self-care (01) ==
PROVIDERS: PCP Internal Medicine; Visit Provider Orthopaedic Surgery
DX: S52.501B Unspecified fracture of the lower end of right radius, initial encounter for open fracture type I or II (principal); S52.601B Unspecified fracture of lower end of right ulna, initial encounter for open fracture type I or II; F17.200 Nicotine dependence, unspecified, uncomplicated; M79.7 Fibromyalgia
CPT/HCPCS: 99024

== ENCOUNTER → 2024-09-04 12:40 | Outpatient (BNVA) | payer OTHER, SELFPAY | PROVIDERS: PCP Internal Medicine | DX: S52.501D Unspecified fracture of the lower end of right radius, subsequent encounter for closed fracture with routine healing (principal); S52.601D Unspecified fracture of lower end of right ulna, subsequent encounter for closed fracture with routine healing; X58.XXXD Exposure to other specified factors, subsequent encounter; Z98.890 Other specified postprocedural states ==

== ENCOUNTER 2024-10-08 13:13 | Outpatient (AMB) | payer OTHER, SELFPAY ==
--- NOTE | 2024-10-08 13:16 | A.OFFVIS_ITS ---
Intake Visit Reasons: OV-RT Distal Radius CRPP 07/01/24 - w/ XR Intake Note: Soraida is a 64 year old right hand dominant female who presents to the office today for a PO fx R distal radius DOS 07/01/24. Last visit she was placed in a Velcro Wrist brace and Occupational Therapy was ordered. She took off the wrist splint on September 14. She uses a wheelchair for ambulation. Allergies aspirin Adverse Reaction (Mild, Verified 10/08/24 13:19) Vomiting Medication List - Last Reconciled 10/08/24 by Lianne Mckenzie RN acetaminophen 650 mg PO Q6H PRN albuterol sulfate 2.5 mg (6 mL) inhalation Q4-6H PRN 30 days amitriptyline 10 mg PO BEDTIME apixaban (Eliquis) 5 mg PO BID ascorbic acid (vitamin C) (Vitamin C) 500 mg PO DAILY atorvastatin 80 mg PO BEDTIME cholecalciferol (vitamin D3) (Vitamin D3) 1,000 units PO DAILY docusate sodium 100 mg PO BID 30 days ferrous sulfate 325 mg PO DAILY menthol 5% (Icy Hot (menthol)) 1 patch topical BID oxycodone-acetaminophen 5-325 mg 1 tab PO Q6H PRN pantoprazole 40 mg PO DAILY PRN pramipexole 0.125 mg PO BEDTIME PRN ropinirole 2 mg PO BEDTIME sertraline 25 mg PO DAILY Symbicort 160-4.5 mcg/actuation (budesonide-formoterol) 2 puffs PO BID NS Ventolin HFA 90 mcg/actuation (albuterol sulfate) 2 puffs inhalation QID PRN NS HPI HPI OV-RT Distal Radius CRPP 07/01/24 - w/ XR: Details: Soraida is a 64 year old right hand dominant female who presents to the office today for a PO fx R distal radius DOS 07/01/24. Last visit she was placed in a Velcro Wrist brace and Occupational Therapy was ordered. She took off the wrist splint on September 14. Patient states she experiences no pain at baseline. Patient states she would like to be discharged from rehab, but states that she is therefore recovery from her stroke in addition to her fracture. She uses a wheelchair for ambulation. No other acute complaints or concerns at this time. [facility] Medical History Embolic stroke Embolic cerebral infarction Multiple cerebral infarctions Pulmonary nodule 1 cm or greater in diameter Squamous cell carcinoma of epiglottis Weight loss, unintentional Skin lesion of back Immunization declined Fracture of proximal end of fibula Contusion of leg, right Vaccination declined by patient Cervical lymphadenopathy Carotid stenosis, right Microcytic hypochromic anemia Left cervical lymphadenopathy Bilateral carotid bruits Smoker Idiopathic hypercalciuria Thyroid nodule Hx of angiography Vitamin D deficiency Goiter History of tachycardia GERD (gastroesophageal reflux disease) Gastritis Duodenitis Pyloric ulcer History of alcohol abuse Myopia of both eyes Papanicolaou smear declined Mammogram declined Smoker unmotivated to quit Restless leg syndrome Aortoiliac occlusive disease Tubular adenoma of colon Chronic Helicobacter pylori gastritis COPD (chronic obstructive pulmonary disease) Fibromyalgia Peripheral vascular disease Osteoporosis Surgical History Hx of coronary angiogram History of removal of skin mole Hx of colonoscopy History of surgery on lower extremity Hx of foot surgery History of surgical removal of lesion (~10/28/21) History of lung biopsy (~04/2021) History of exploratory thoracotomy (~04/2018) History of tonsillectomy History of endarterectomy (~05/2020) History of ankle surgery (~11/2011) History of myringotomy History of appendectomy History of tubal ligation Family History Father Substance use disorder Mother Osteoporosis Substance use disorder Brother Substance use disorder Sister Substance use disorder Lung cancer Sister Substance use disorder Brother Substance use disorder Social History Household Members: None Housing: Residential Housing Other:: Rehab Are you a primary manager primary care to a significant other at home: No Do you presently have visiting nurse or other home services: No Unable to assess alcohol history related to: Unknown Alcohol intake: former Patient Tobacco Use Status: Current everyday Tobacco user Tobacco use type: Cigar Cigarette Packs Per Day: 0.5 Cigarettes Per Day: 4 Years Smoked: 50+ e-Cigarette/Vaping Use: Never Used Second Hand Smoke Exposure: No Advance Directives Date on File: 12/12/23 service: No Current occupational status: disabled Current occupation: rt handed Current occupational exposures/hazards: No Cognitive needs: No Hearing needs: No Vision needs: Yes Review of Systems Const All systems reviewed & are unremarkable except as noted in HPI and below Physical Exam Const General: no acute distress and alert Orientation/consciousness: patient oriented x3 Neuro General: patient oriented x3 Extrem Other: Evaluation of Upper Extremity: The patient is alert, oriented, and in no acute distress The patient is seen in a wheelchair today. Sensation grossly intact to the tips of all digits Cap refill brisk ROM: she was able to bring her fingers close to a fist and back into full extension. She has a significant tremor in her finger, and some trouble with voluntary control of her fingers and with wrist extension, likely due to weakness and the effects of her stroke which she had before her fracture With encouragement she could fully extend her elbow, however if she does not focus on maintaining this position, she flexes her elbow and fully pronates her hand, likely related to her CVA ~90 degrees pronation today ~80 degrees supination Both Fracture sites non-tender DRUJ appears to be stable. The K-wire traversing the ulna fracture has withdrawn beneath skin and the length of the K-wire is in the shaft of the ulna, and the shortened bent part is lying against the ulna. Not palpable & not protruding beneath skin. We will allow to remain as retained implant. Psych Appearance: grossly normal Affect: normal affect Attitude: cooperative Results Reviewed Results Reviewed: Radiographs: 3 views of the right wrist were taken and viewed by me today in clinic. They show a distal radius fracture and ulnar shaft fracture both with satisfactory fracture alignment and position of all implants. Assessment & Plan Assessment & Plan (1) Fracture of radius, distal, with ulna, right, open: Code(s): S52.501B - Unspecified fracture of the lower end of right radius, initial encounter for open fracture type I or II; S52.601B - Unspecified fracture of lower end of right ulna, initial encounter for open fracture type I or II Category: Medical Plan 1. Open fracture of right distal radius status post ORIF DOS 07/01/2024 Patient appears to be recovering well postoperatively Patient is educated about the typical recovery course At this time, patient was informed that she only needs to wear the Velcro wrist splint in high risk situations, such as when outside with ice Other than that, patient will not require any further immobilization Patient should continue with occupational therapy Patient was educated that we can leave the pin in that has retreated under the skin, as it does not appear to be causing her any issues Patient was amenable to this plan Patient will follow-up i as needed with any acute concerns Coding Level of Care Code Global (77871) Diagnoses Fracture of radius, distal, with ulna, right, open S52.501B; S52.601B
--- OUTSIDE RECORDS SUMMARY | 2024-10-08 16:13 | XMS_ITS | Data Portability ---
Author Organization [place] [facility] Address [address] [address] Care Team Providers Care Furniture Assembler And Installer Name Role Phone CHRISTOPHER HDZ Primary Care Provider [phone] DEVON ANNA Primary Care Provider ALVARO MORE OTHER DORENE LORENZANA Referring Provider ELANA MCCURDY Primary Care Provider Assessment Encounter Date Assessment Date Assessment LastModified by Organization Details LastModified Time 01/18/2024 01/18/2024 Patient has advanced larynx cancer. I did not appreciate that the malignancy extended to the level of the vocal cords on my fiberoptic examination. I believe it is isolated to the left supraglottis. She is prepared to move forward with chemo and radiation therapy for treatment. I discussed there are surgical options to remove the larynx and perform neck dissections to decrease her tumor burden but that she would likely require treatment with radiation afterwards. At this time she declines surgery as she wishes to preserve her voice as long as possible. She understands I will be available for surveillance in about 6 months after she completes her treatment and posttreatment PET/CT [email or web address] Not available 01/18/2024 14:23:54 Plan of Treatment Reminders Order Date Submit Date Provider Last Modified By Organization Details Last Modified Time Details Appointments None record ed. Lab None record ed. Referral None record ed. Procedures None record ed. Surgeries None record ed. Imaging None record ed. Medication Orders None record ed. Patient TargetsNo targets recorded. Patient InstructionsNo instructions recorded. Reason for Referral None Reported. 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 Procedures Surgical History Date Name Laterality Status Provider Name and Address Organization Details Recorded Time 01/18/2024 FOL_DP completed МАРИНА TIJERINA MD [address] [place] [address], [place], [address], [facility] 01/18/2024 14:22:46 Imaging Results None recorded. Procedure Notes None recorded. Medical Equipment None Reported. Allergies Allergen ID Allergen Name Allergen Category Reaction Reaction Severity Criticality Documentation Date Start Date Code Code System Note Provider Name and Address Organization Details Recorded Time 462901 aspirin medicatio n Not available Not available Not available 01/18/2024 1191 RxNorm Becka ruiz [facility] 14:01:27 131757 lobster allergeni c extract food Not available Not available Not available 01/18/2024 94666 1 RxNorm Becka ruiz [facility] 14:01:39 Medications Name Sig Start Date Stop Date Status Note LastModified by Organization Details LastModified Time fluconazole 100 mg tablet TAKE 2 TABLETS ON DAY 1, THEN 1 TABLET DAILY FOR 9 ADDITIONA L DAYS 01/17 completed Not Available Not Available Not Available nystatin 100,000 unit/mL oral suspension 01/17 completed Not Available Not Available Not Available ropinirole 1 mg tablet TAKE 1 TABLET BY MOUTH 1 TO 3 HOURS BEFORE BEDTIME active Not Available Not Available No t Available albuterol sulfate 1.25 mg/3 mL solution for nebulizatio n INHALE 2.5 MG (6 ML) EVERY 4 TO 6 HOURS NEEDED FOR SHORTNESS OF BREATH OR WHEEZING FOR 30 DAYS active Not Available Not Available No t Available ondansetron HCl 8 mg tablet TAKE 1 TABLET BY MOUTH EVERY 8 HOURS NEEDED FOR NAUSEA/VO MITING active Not Available Not Available No t Available cyanocobala min (vit B-12) 1,000 mcg tablet TAKE 1 TABLET BY MOUTH EVERY DAY active Not Available Not Available No t Available clopidogrel 75 mg tablet TAKE 1 TABLET BY MOUTH EVERY DAY 01/17 completed Not Available Not Available Not Available prochlorper azine maleate 10 mg tablet TAKE 1 TABLET BY MOUTH EVERY 6 HOURS NEEDED FOR NAUSEA AND VOMITING MAY CAUSE DROWSINES S active Not Available Not Available No t Available olanzapine 2.5 mg tablet TAKE 1 TABLET BY MOUTH EVERY DAY AT BEDTIME FOR 3 DAYS WITH EACH CHEMO DIRECTED active Not Available Not Available No t Available lidocaine-p rilocaine 2.5 %-2.5 % topical cream APPLY SMALL DOLLOP TO PORTACAT SITE 1 HR PRIOR TO APPT AND COVER WITH PLASTIC active Not Available Not Available No t Available pantoprazol e 40 mg tablet,mary ellen yed release TAKE 1 TABLET BY MOUTH EVERY DAY active Not Available Not Available No t Available ropinirole 0.5 mg tablet TAKE 2 TABLETS BY MOUTH DAILY active Not Available Not Available No t Available dexamethaso ne 4 mg tablet TAKE 1 TABLET BY MOUTH DAILY FOR 3 DAYS AFTER CHEMO WITH FOOD DIRECTED active Not Available Not Available No t Available pramipexole 0.125 mg tablet TAKE 1 TABLET BY MOUTH AT BEDTIME 01/17 completed Not Available Not Available Not Available folic acid 1 mg tablet TAKE 1 TABLET BY MOUTH EVERY DAY active Not Available Not Available No t Available amoxicillin 875 mg-potassiu m clavulanate 125 mg tablet TAKE 1 TABLET BY MOUTH TWICE A DAY 01/17 completed Not Available Not Available Not Available Ventolin HFA 90 mcg/actuati on aerosol inhaler 2 PUFF INHALED 4 TIMES A DAY NEEDED FOR SHORTNESS OF BREATH OR WHEEZING active Not Available Not Available No t Available hydrochloro thiazide 12.5 mg tablet TAKE 1 TABLET BY MOUTH EVERY DAY active Not Available Not Available No t Available Symbicort 160 mcg-4.5 mcg/actuati on HFA aerosol inhaler TAKE 2 PUFFS BY MOUTH TWICE A DAY active Not Available Not Available No t Available cholecalcif hai (vitamin D3) 1,250 mcg (50,000 unit) capsule (NOT COVERED) TAKE 1 CAPSULE BY MOUTH EVERY WEEK FOR 3 MONTHS active Not Available Not Available No t Available GaviLyte-G 236 gram-22.74 gram-6.74 gram-5.86 gram oral solution DRINK 240 ML (8 OUNCES) ORALLY EVERY 10 MINUTES UNTIL FECAL EFFLUENT IS CLEAR 01/17 completed Not Available Not Available Not Available Therapeutic -M 9 mg iron-400 mcg tablet TAKE 1 TABLET BY MOUTH EVERY DAY active Not Available Not Available No t Available tramadol 5 mg/mL oral solution 10 ML BY MOUTH EVERY 6 HOURS, NEEDED FOR PAIN active Not Available Not Available No t Available Vitals Date Recorded Body height Body mass index (BMI) Body weight Provider Name and Address Organization Details Last Updated DateTime 01/18/2024 154.94 cm 13.2 kg/m2 89347.47 g Becka Sanchez [place] [facility] 01/18/2024 13:59:20 Social History Question Answer Notes LastModified by Organizat ion Details LastModified Time Tobacco Smoking Status Current Every Day Smoker МАРИНА TIJERINA MD [address] [place] [address], [phone], [place] [facility] 01/18/2024 14:06:41 How Much Tobacco Do You Smoke? 2 PPD [email or web address] Information not available 01/18/2024 Sex: Unknown Functional Status None recorded. Mental Status None recorded. Family History Nothing Reported. Medical History Condition Response COPD Y Arthritis Y Cancer Y Gynecological HistoryNo gynecological history recorded. 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 (O) SUMI Arroyo [id number] Soraida Arroyo Notes Date Note Type Note Provider Name and Address Organization Details Recorded Time 01/18/2024 text/html Malignant neopla sm of supraglottis [id number] by Dr Salomón Chen 10/24/23-10/28/23 Admitted to [facility] - transfer from [place].10/24/2023 CT neck with contrast at [place] radiology shows enhancing ulcerated nodular mucosal mass involving the epiglottis, left AE fold. Crosses midline anteriorly with infiltration of preepiglottic fat. Leftward paraglottic extension up to the hyoid bone. Necrotic left level 2 cervical lymph node 19 mm. Additional 11 mm left level 2 necrotic lymph node. Spiculated nodule with central area of cavitation right upper lobe measuring 13 mm. 10/25/2023 left neck FNA squamous cell carcinoma p16 negative10/25/23 ENT at [facility] exam - results not available 11/27/2023 PET/CT at [facility] shows left epiglottis uptake extends from the midline to level of vocal cords. Level 2 lymph nodes measuring 18 mm and 15 mm on the left side. 1 cm spiculated nodule right upper lobe.12/14/[address] More12/19/[address] onc[address] consult with Dr. Lorenzana12/26/2023 swallow therapy Aleah TIJERINA MD [address] [place] [address], [phone], [facility] 01/18/2024 14:24:27 OBGyn Episode No OBEpisode recorded.
--- OUTSIDE RECORDS SUMMARY | 2024-10-08 16:13 | XMS_ITS | Clinical Summary ---
Author Organization [facility] Address [address] [place] [address] Care Team Providers Care School Health Assistant Name Role Phone Jennifer Flores MD Primary Care Provider [phone] Allergies Active Allergy Reactions Criticality Noted Date Comments Aspirin Unknown/Patient and Family Unable to Define Medium 10/25/2023 Medications Medication Sig Dispensed Refills Start Date End Date Status albuterol, preservative free, (ACCUNEB) 1.25 mg/3 mL nebulizer solution INHALE 2.5 MG (6 ML) EVERY 4 TO 6 HOURS NEEDED FOR SHORTNESS OF BREATH OR WHEEZING FOR 30 DAYS 09/26/2023 Active Ventolin HFA 108 (90 Base) MCG/ACT inhaler Inhale 2 puffs 4 times daily (every 6 hours) as needed for wheezing or shortness of breath. 10/23/2023 Active Symbicort 160-4.5 MCG/ACT inhaler Inhale 2 puffs 2 (two) times a day. 10/03/2023 Active PANTOprazole (PROTONIX) 40 MG EC tablet Take 1 tablet (40 mg total) by mouth daily. 09/11/2023 Active pramipexole (miraPEx) 0.125 MG tablet Take 1 tablet (0.125 mg total) by mouth nightly. 08/27/2023 Active rOPINIRole (REQUIP) 1 MG tablet Take 1 tablet (1 mg total) by mouth nightly. 10/23/2023 Active clopidogrel (PLAVIX) 75 MG tablet Take 1 tablet (75 mg total) by mouth daily. Active cyanocobalamin (VITAMIN B12) 1000 MCG tabletIndications:Ane neetu, unspecified type Take 1 tablet (1,000 mcg total) by mouth daily. 30 tablet 10/27/2023 Active folic acid (FOLVITE) 1 MG tabletIndications:Ane neetu, unspecified type Take 1 tablet (1 mg total) by mouth daily. 30 tablet 10/27/2023 Active multivitamin with minerals Tab tabletIndications:Sev ere protein-calorie malnutrition Take 1 tablet by mouth daily. 30 tablet 10/29/2023 Active Active Problems Problem Noted Date Diagnosed Date Severe protein-calorie malnu trition (HCC)chronic illness. Severe fat loss orbital, buccal, tricepts. Severe muscle wasting temporalis, pectoralis major, deltoid, trapezius, quadriceps, gastrocnemius 10/26/2023 Neck mass 10/25/2023 Anemia 10/25/2023 Dysphagia 10/25/2023 Drop in hemoglobin 10/25/2023 COPD (chronic obstructive pulmonary disease) Social History Tobacco Use Types Packs/Day Years Used Date Smoking Tobacco: Never Assessed [facility] Utilities Answer Date Recorded In the past 12 months has th e [employer], gas, oil, or water company threatened to shut off services in your home? No 10/26/2023 AUDIT-C Answer Date Recorded Q1: How often do you have a drink containing alcohol? Never 10/25/2023 Q2: How many drinks containi ng alcohol do you have on a typical day when you are drinking? Patient does not drink Q3: How often do you have si x or more drinks on one occasion? Never 10/25/2023 Overall Financial Resource Strain (CARDIA) Answe r Date Recorded How hard is it for you to pa y for the very basics like food, housing, medical care, and heating? Not hard at all 10/26/2023 Hunger Vital Sign Answer Date Recorded Within the past 12 months, y ou worried that your food would run out before you got the money to buy more. Never true 10/26/19 24 Within the past 12 months, t he food you bought just didn't last and you didn't have money to get more. Never true 10/26/2023 PRAPARE - Transportation Answer Date Re corded In the past 12 months, has l ack of transportation kept you from medical appointments or from getting medications? No 10/12 In the past 12 months, has l ack of transportation kept you from meetings, work, or from getting things needed for daily living? No 10/26/2023 Housing Stability Vital Sign Answer Nitish e Recorded In the last 12 months, was t here a time when you were not able to pay the mortgage or rent on time? No 10/26/2023 In the last 12 months, how many places have you lived? 1 10/26/2023 In the last 12 months, was t here a time when you did not have a steady place to sleep or slept in a fdc (including now)? No 10/26/2023 Sex and Gender Information Value Date Recorded Sex Assigned at Female 10/24/2023 9:57 PM EDT Gender Identity Female 10/24/2023 9:57 PM EDT Sexual Orientation Heterosexual (straight) 10/23 9:57 PM EDT Last Filed Vital Signs Vital Sign Reading Time Taken Comments Blood Pressure 161/80 10/28/2023 2:04 PM EDT Pulse 73 10/28/2023 2:04 PM EDT Temperature 35.7 ??C (96.3 ??F) 10/28/2023 2:04 PM ED T Respiratory Rate 18 10/28/2023 2:04 PM EDT Oxygen Saturation 96% 10/28/2023 5:13 AM EDT Inhaled Oxygen Concentration - - Weight 34.6 kg (76 lb 3.2 oz) 10/26/2023 8:00 AM EDT Height 154.9 cm (5' 1 ) 10/26/2023 8:00 AM EDT Body Mass Index 14.4 10/26/2023 8:00 AM EDT Plan of Treatment Health Maintenance Due Date Last Done Comments Hepatitis C Virus Screening 1962 HIV Screening 1975 DTaP/Tdap/Td Vaccines (1 - Tdap) 1981 Pneumococcal Vaccines 50+ (1 of 2 - PCV) 1981 Pap Smear (Ages 21-65) 1983 Mammogram 2002 Colonoscopy 2007 Zoster (Shingles) Vaccine (1 of 2) 02/10/2012 RSV Vaccine 60 years and old er and Patients (1 - Risk 60-74 years 1-dose series) 2022 Influenza Vaccine 03/14/2024 COVID-19 Vaccine (1 - 2023-2 5 season) 2024 Hepatitis B Vaccines Aged Out No long er eligible based on patient's age to complete this topic Advance Directives * Full Code (Latest Code Status on File) Date Activated Date Inactivated Comments 10/25/2023 12:42 AM Care Teams School Health Assistant Relationship Specialty Start Date End Date Jennifer Flores MD [address] [place] [address] PCP - General Internal Medicine 10/26/23
== END 2024-10-08 13:35 | disposition home or self-care (01) ==
PROVIDERS: PCP Internal Medicine
DX: S52.501B Unspecified fracture of the lower end of right radius, initial encounter for open fracture type I or II (principal); S52.601B Unspecified fracture of lower end of right ulna, initial encounter for open fracture type I or II
CPT/HCPCS: 99212

== ENCOUNTER → 2024-10-08 13:13 | Outpatient (BNVA) | payer OTHER, SELFPAY | PROVIDERS: PCP Internal Medicine | DX: S52.501D Unspecified fracture of the lower end of right radius, subsequent encounter for closed fracture with routine healing (principal); S52.601D Unspecified fracture of lower end of right ulna, subsequent encounter for closed fracture with routine healing; X58.XXXD Exposure to other specified factors, subsequent encounter; Z86.73 Personal history of transient ischemic attack (TIA), and cerebral infarction without residual deficits; Z98.890 Other specified postprocedural states | CPT/HCPCS: 99212 ==

== ENCOUNTER 2024-10-20 19:23 | Emergency (ER) | payer OTHER, SELFPAY ==
--- NOTE | ~2024-10-20 | CT_ITS ---
CLINICAL HISTORY: Fall, LOC, on Eliquis, right facial droop R O stro CT head without contrast Comparison: CT/SR - CT HEAD/BRAIN WO IV CON - 06/29/24 11:59 EST MR/[place]/SR - MR HEAD/BRAIN WO CON - 05/25/24 20:57 EDT Findings: No intra-axial mass, midline shift, hydrocephalus, or acute hemorrhage. Chronic bilateral parietal lobe infarcts again seen. Otherwise mild generalized cerebral volume loss and chronic microvascular ischemic changes. The visualized paranasal sinuses and mastoid air cells are normal. The orbits are unremarkable. No skull fracture. IMPRESSION: 1. No acute intracranial findings specifically, no acute intracranial hemorrhage. 2. Bilateral MCA/NEUROLOGY PHYSICIAN watershed territory chronic infarcts involving bilateral posterior parietal lobes, unchanged. This document has been electronically signed by: Mary Ellen Gonzalez MD on 10/20/2024 19:54:33
--- NOTE | ~2024-10-20 | CT_ITS ---
CLINICAL HISTORY: Fall, LOC, on Eliquis, R facial droop R O stroke, CT angiography head and neck with contrast. 3D Postprocessing. Comparison: CT/SR - HEAD STROKE_BRAIN (ADULT) - 10/20/24 19:[address]/[place]/SR - CT ANGIO HEAD NECK STROKE - 05/25/24 13:46 EDT Findings: Moderate atherosclerotic disease of the aortic arch and origins of the great vessels without hemodynamically significant stenosis. Complete occlusion of the left ICA the takeoff. Extensive atherosclerotic calcification of the right carotid bifurcation without hemodynamically significant stenosis. Non opacification of left carotid siphon with reconstitution of the left carotid terminus by anterior communicating artery. Suspected severe stenosis of the right carotid supraclinoid segment (on image 253 and series 6 ). Bilateral HAMILTON and MCA segments are patent. Mild stenosis of the bilateral vertebral artery at the origin. The left vertebral artery predominantly terminates as PICA. Left dominant vertebral artery continues as basilar artery. type right TRAY DRIER bilateral loan review analyst are patent. No abnormal intracranial enhancement. The visualized thyroid gland is unremarkable. No cervical mass or fluid collection. Lung apices clear. No acute fracture. 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 Reconstitution of the left carotid terminus by anterior communicating artery. Bilateral HAMILTON, MCA, and TRAY DRIER's are patent. Suspected severe stenosis of the right intracranial ICA supraclinoid segment. Moderate atherosclerotic disease of the aortic arch, origins of the great vessels, bilateral carotid bifurcations, and carotid siphons. Right vertebral artery predominantly terminating as PICA. Dominant left vertebral artery which continues as basilar artery as well as left type TRAY DRIER which may be the primary supplier for both anterior and posterior circulation. Findings can be confirmed with conventional angiogram if clinically appropriate. This document has been electronically signed by: Mary Ellen Gonzalez MD on 10/20/2024 21:23:39
--- NOTE | 2024-10-20 19:28 | ECG_ITS ---
Test Reason : STROKE PROTOCOL Blood Pressure : */* mmHG Vent. Rate : 88 BPM Atrial Rate : 88 BPM P-R Int : 100 ms QRS Dur : 68 ms QT Int : 378 ms P-R-T Axes : 13 68 80 degrees QTcB Int : 457 ms Sinus rhythm with short AL Nonspecific ST and T wave abnormality Borderline ECG When compared with ECG of 29-Jun-2024 10:51, No significant change was found Referred By: Kirit Romero Electronically Signed By: MARNI LANGFORD
--- NOTE | 2024-10-20 19:28 | ED_ITS ---
HPI - Neuro Symptoms/Deficit General Chief Complaint: Stroke Stated Complaint: STROKE ALERT PER EMS [facility] 1820/1830 Time Seen by Provider: 10/20/24 19:27 Source: patient and EMS Mode of arrival: EMS Limitations: no limitations History of Present Illness ED Provider: Dr. Kirit Romero HPI Narrative: 64-year-old female with a history of embolic stroke/infarction, squamous cell cancer of the epiglottis, GERD, gastritis, fibromyalgia who presented to the emergency department for evaluation of fall at her nursing facility with period of unresponsiveness, right facial droop, slurred speech. He was information came from EMS. Apparently the patient slipped off her bed and became unresponsive. Staff members at her care facility noted a left facial droop and slurred speech. Paramedics state by the time they arrived the patient's symptoms had resolved. The patient was brought to the emergency department as a stroke alert. I did evaluate the patient on the machine clothing replacer stretcher. The patient was awake, alert, oriented to person, she knows that she was in the emergency department, she was she was all questions appropriately, she had no facial droop and her neurologic exam was normal. Her NIH stroke scale was 0. Patient was sent immediately to CT scan for CT scan of the brain to rule out bleeding and CT angiogram head and neck to rule out large vessel occlusion. The patient was on Eliquis for her embolic stroke. Related Data Home Medications ?Medication ?Instructions ?Recorded ?Confirmed pantoprazole 40 mg tablet,delayed 40 mg PO DAILY PRN Acid Reflux 05/25/24 10/08/24 release pramipexole 0.125 mg tablet 0.125 mg PO BEDTIME PRN restless 05/25/24 10/08/24 leg syndrome ropinirole 1 mg tablet 2 mg PO BEDTIME 05/25/24 10/08/24 acetaminophen 325 mg tablet 650 mg PO Q6H PRN Pain 06/29/24 10/08/24 ascorbic acid (vitamin C) 500 mg 500 mg PO DAILY 06/29/24 10/08/24 tablet (Vitamin C) ferrous sulfate 325 mg (65 mg 325 mg PO DAILY 06/29/24 10/08/24 iron) tablet menthol 5 % topical patch (Icy Hot 1 patch topical BID 06/29/24 10/08/24 (menthol)) amitriptyline 10 mg tablet 10 mg PO BEDTIME 01/22/25 02/25/25 cholecalciferol (vitamin D3) 25 1,000 unit PO DAILY 09/04/24 10/08/24 mcg (1,000 unit) capsule (Vitamin D3) sertraline 25 mg tablet 25 mg PO DAILY 09/04/24 10/08/24 Previous Rx's ?Medication ?Instructions ?Recorded albuterol sulfate 1.25 mg/3 mL 2.5 mg (6 mL) inhalation Q4-6H PRN 09/26/23 solution for nebulization shortness of breath or wheezing 30 days #90 mL Symbicort 160 mcg-4.5 2 puff PO BID #10.2 grams 10/03/23 mcg/actuation HFA aerosol inhaler (budesonide-formoterol) Ventolin HFA 90 mcg/actuation 2 puff inhalation QID PRN for 05/07/24 aerosol inhaler (albuterol sulfate) wheezing #18 ea apixaban 5 mg tablet (Eliquis) 5 mg PO BID #180 tabs 05/30/24 atorvastatin 80 mg tablet 80 mg PO BEDTIME #90 tabs 05/30/24 docusate sodium 100 mg capsule 100 mg PO BID 30 days #60 caps 07/02/24 oxycodone-acetaminophen 5 mg-325 1 tab PO Q6H PRN pain, severe #25 07/02/24 mg tablet tabs Allergies Allergy/AdvReac Type Severity Reaction Status Date / Time aspirin AdvReac Mild Vomiting Verified 10/20/24 19:59 Review of Systems 2 Review of Systems: Yes all other systems are reviewed and are negative [facility] Past Medical History Medical History Embolic stroke Embolic cerebral infarction Multiple cerebral infarctions Pulmonary nodule 1 cm or greater in diameter Squamous cell carcinoma of epiglottis Weight loss, unintentional Skin lesion of back Immunization declined Fracture of proximal end of fibula Contusion of leg, right Vaccination declined by patient Cervical lymphadenopathy Carotid stenosis, right Microcytic hypochromic anemia Left cervical lymphadenopathy Bilateral carotid bruits Smoker Idiopathic hypercalciuria Thyroid nodule Hx of angiography Vitamin D deficiency Goiter History of tachycardia GERD (gastroesophageal reflux disease) Gastritis Duodenitis Pyloric ulcer History of alcohol abuse Myopia of both eyes Papanicolaou smear declined Mammogram declined Smoker unmotivated to quit Restless leg syndrome Aortoiliac occlusive disease Tubular adenoma of colon Chronic Helicobacter pylori gastritis COPD (chronic obstructive pulmonary disease) Fibromyalgia Peripheral vascular disease Osteoporosis Surgical History Hx of coronary angiogram History of removal of skin mole Hx of colonoscopy History of surgery on lower extremity Hx of foot surgery History of surgical removal of lesion (~10/28/21) History of lung biopsy (~04/2021) History of exploratory thoracotomy (~04/2018) History of tonsillectomy History of endarterectomy (~05/2020) History of ankle surgery (~11/2011) History of myringotomy History of appendectomy History of tubal ligation Family History Family History Father Substance use disorder Mother Osteoporosis Substance use disorder Brother Substance use disorder Sister Substance use disorder Lung cancer Sister Substance use disorder Brother Substance use disorder Social History Social History Household Members: None Housing: Skilled Nursing Housing Other:: Rehab Are you a primary dialysis patient care technician to a significant other at home: No Do you presently have visiting nurse or other home services: No Unable to assess alcohol history related to: Unknown Alcohol intake: former Patient Tobacco Use Status: Current everyday Tobacco user Tobacco use type: Cigar Cigarette Packs Per Day: 0.5 Cigarettes Per Day: 4 Years Smoked: 50+ e-Cigarette/Vaping Use: Never Used Second Hand Smoke Exposure: No Use of substances other than those prescribed or required for medical reasons: No Advance Directives: Yes Advance Directives on File: Yes Advance Directives Date on File: 12/12/23 Do you have a plan to hurt others: No Plan Patient : No service: No Current occupational status: disabled Current occupation: rt handed Current occupational exposures/hazards: No Cognitive needs: No Hearing needs: No Vision needs: Yes Physical Exam 2 Vital Signs: Vital Signs: Last Vital Signs Temp 98.9 F 10/20/24 22:56 Pulse 88 10/20/24 22:56 Resp 18 10/20/24 22:56 BP 166/61 H 10/20/24 22:56 Pulse Ox 97 10/20/24 22:56 O2 Del Method Room Air 10/20/24 22:56 BMI result Body Mass Index 15.1 Vital signs revealed an elevated blood pressure of 160/83 otherwise unremarkable Exam: General: Awake, alert in no distress Head: Normocephalic, atraumatic EENT: PERRL, Lids normal, sclera normal, conjunctiva normal, nose normal , ears normal, throat without erythema or exudates Neck: Supple, no adenopathy Lung: breath sounds symmetric, no wheezing, rales or rhonchi Chest: symmetric movement, nontender Heart: regular rate and rhythm, normal S1, S2 no murmurs or rubs Abdomen: soft, non-tender, nondistended, normal bowel sounds Back: no vertebral tenderness, no CVAT Extremities: no deformities, Patient was difficulty lifting her right arm secondary to shoulder issues but he was able to hold her right arm and left arm up against gravity Neuro: Awake, alert, oriented, normal speech, cranial nerves intact, moves all extremities symmetrically Psych: Pleasant, cooperative Medications Administered Discontinued Medications Generic Name Dose Route Start Last Admin Trade Name Freq PRN Reason Stop Dose Admin Iohexol 100 ml 10/20/24 19:43 10/20/24 19:43 Iohexol 350 Mg/Ml 100 Ml Infus..Btl IV 10/20/24 19:44 70 ml ONCE ONE Administration Medical Decision Making Medical Decision Making MDM Narrative: 64-year-old female with a history of embolic stroke/infarction on Eliquis, squamous cell cancer of the epiglottis, GERD, gastritis, fibromyalgia who presented to the emergency department for evaluation of fall at her nursing facility with period of unresponsiveness, right facial droop, slurred speech. He was information came from EMS. Apparently the patient slipped off her bed and became unresponsive. Staff members at her care facility noted a left facial droop and slurred speech. Paramedics state by the time they arrived the patient's symptoms had resolved. The patient was brought to the emergency department as a stroke alert. patient's physical examination was unremarkable. NIH stroke scale was 0. Differential diagnosis: Includes but is not limited to stroke, TIA, intracranial bleed, skull fracture, cervical fracture,electrolyte abnormalities, anemia course: 21:41 My interpretation patient's laboratory evaluation as follows: WBC was normal 5200. Chronic normocytic anemia with an H&H of 7.9 and 26.9. INR was elevated at 1.2 with an elevated PT 13.6. CMP was normal. Point of care glucose was 98. Stroke INR and PT was 1.[address] scan of the head revealed no acute fracture or bleed which was reassuring. Patient does have evidence of an old left MCA stroke. CT angiogram head and neck was unremarkable. At this time, I do not have a clear etiology for the patient's symptoms, it is possible she may have had a TIA. Patient is on Eliquis and I do not think that she needs a change in her medication regimen secondary to TIA. Also since the patient was on Eliquis she was not a TNK candidate and he was no large vessel occlusive clot seen. Patient was currently at her baseline and I do not think that she needs be hospitalized therefore she will be sent back to her care facility. Admission/Observation Consideration of admission/observation: Escalation of care including admission/observation considered (YES) Lab Data MDM Lab Attestation statement: I reviewed the patient's lab results. 10/20/24 20:16 10/20/24 20:16 Labs: Lab Results 10/20/24 10/20/24 10/20/24 Range/Units 18:30 19:30 20:16 WBC 5.2 (4.8-10.8) X10*3/uL RBC 2.93 L (4.20-5.50) X10*6/uL Hgb 7.9 L (12.0-16.0) g/dl Hct 26.9 L (37.0-47.0) % MCV 91.8 (80.0-98.0) fL MCH 27.0 (27.0-33.0) pg MCHC 29.4 L (31.0-35.0) g/dl RDW 14.2 (11.0-16.0) % Plt Count 193 (160-400) X10*3/uL MPV 8.8 L (9.4-12.3) fL Immature Gran % (Auto) 0.4 (0.0-0.4) % Neut % (Auto) 79.8 H (45-73) % Lymph % (Auto) 9.4 L (20-40) % Roberts % (Auto) 8.8 (2-11) % Eos % (Auto) 1.2 (0-4) % Baso % (Auto) 0.4 (0-2) % Lymph # (Auto) 0.5 L (1.2-4.9) X10*3/uL Roberts # (Auto) 0.5 (0.1-1.2) X10*3/uL Eos # (Auto) 0.1 (0.0-0.4) X10*3/uL Baso # (Auto) 0.0 (0.0-0.2) X10*3/uL Abs Immat Gran (auto) 0.02 (0.00-0.03) X10*3/uL Absolute Neuts (auto) 4.2 (2.0-8.3) x10*3/uL Absolute Nucleated RBC 0.000 (0.0-0.012) X10*3/uL Nucleated RBC % (auto) 0.0 (0.0-0.2) /100WBC PT (Fingerstick) 13.6 H (11.1-13.5) sec PT 13.6 H D (10.9-12.4) SEC INR (Fingerstick) 1.1 (0.9-1.1) INR 1.2 H (0.9-1.1) APTT 34.0 (26.0-36.8) SEC Sodium 139 (135-145) mmol/L Potassium 4.5 (3.3-5.1) mmol/L Chloride 108 (96-108) mmol/L Carbon Dioxide 23 (22-29) mmol/L Anion Gap 13 (12-20) BUN 14 (9-16) mg/dL Creatinine 0.50 (0.5-1.4) mg/dL Estim Creat Clear Calc 66.6 Estimated GFR > 60 POC Glucose 98 (60-115) mg/dL Random Glucose 85 (60-115) mg/dL Calcium 8.7 (8.4-10.2) mg/dL Total Bilirubin 0.2 (0.0-1.0) mg/dL Direct Bilirubin < 0.2 (0.0-0.5) mg/dL AST 25 (5-31) U/L ALT 17 (0-31) U/L Alkaline Phosphatase 90 (39-117) U/L Troponin I High Sens 3.0 (<3.5-17.0) ng/L Total Protein 6.4 L (6.5-8.0) g/dL Albumin 3.7 (3.5-5.0) g/dL Triglycerides 71 (<150) mg/dL Cholesterol 104 (<200) mg/dL LDL Cholesterol, Calc 47 (<100) mg/dL HDL Cholesterol 43 (>40) mg/dL Independent Interpretation I performed an independent interpretation of an: EKG Interpretation: My independent interpretation patient's 12 EKG done on 10/20/2024 at 19:56 hours was interpreted by me as follows: Normal sinus rhythm rate of 88, normal NE interval, QRS duration QTC interval, no ST segment elevation, no ST segment depression, no PACs, no PVCs Radiology Impression Discussion of test interpretation with radiology: I have reviewed the radiologist's reading. Radiologist Impression: CT head without IV contrast Comparison: CT/SR - CT HEAD/BRAIN WO IV CON - 06/29/24 11:59 EST MR/NE/SR - MR HEAD/BRAIN WO CON - 05/25/24 20:57 EDT Findings: No intra-axial mass, midline shift, hydrocephalus, or acute hemorrhage. Chronic bilateral parietal lobe infarcts again seen. Otherwise mild generalized cerebral volume loss and chronic microvascular ischemic changes. The visualized paranasal sinuses and mastoid air cells are normal. The orbits are unremarkable. No skull fracture. IMPRESSION: 1. No acute intracranial findings specifically, no acute intracranial hemorrhage. 2. Bilateral MCA/SHUTTLE CAR OPERATOR watershed territory chronic infarcts involving bilateral posterior parietal lobes, unchanged. This document has been electronically signed by: Mary Ellen Gonzalez MD on 10/20/2024 19:54:33 CT angiography head and neck with contrast. 3D Postprocessing. Comparison: CT/SR - HEAD STROKE_BRAIN (ADULT) - 10/20/24 19:[address]/NE/SR - CT ANGIO HEAD NECK STROKE - 05/25/24 13:46 EDT Findings: Moderate atherosclerotic disease of the aortic arch and origins of the great vessels without hemodynamically significant stenosis. Complete occlusion of the left ICA the takeoff. Extensive atherosclerotic calcification of the right carotid bifurcation without hemodynamically significant stenosis. Non opacification of left carotid siphon with reconstitution of the left carotid terminus by anterior communicating artery. Suspected severe stenosis of the right carotid supraclinoid segment (on image 253 and series 6 ). Bilateral HAMILTON and MCA segments are patent. Mild stenosis of the bilateral vertebral artery at the origin. The left vertebral artery predominantly terminates as PICA. Left dominant vertebral artery continues as basilar artery. type right SHUTTLE CAR OPERATOR bilateral supervisor plate pasting are patent. No abnormal intracranial enhancement. The visualized thyroid gland is unremarkable. No cervical mass or fluid collection. Lung apices clear. No acute fracture. 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 Reconstitution of the left carotid terminus by anterior communicating artery. Bilateral HAMILTON, MCA, and SHUTTLE CAR OPERATOR's are patent. Suspected severe stenosis of the right intracranial ICA supraclinoid segment. Moderate atherosclerotic disease of the aortic arch, origins of the great vessels, bilateral carotid bifurcations, and carotid siphons. Right vertebral artery predominantly terminating as PICA. Dominant left vertebral artery which continues as basilar artery as well as left type SHUTTLE CAR OPERATOR which may be the primary supplier for both anterior and posterior circulation. Findings can be confirmed with conventional angiogram if clinically appropriate. This document has been electronically signed by: Mary Ellen Gonzalez MD on 10/20/2024 21:23:39 Independent Historian Clinical information obtained from an independent historian. History obtained from or confirmed by: EMS External Record Review External record reviewed: Inpatient record Chronic Conditions Patient?s care impacted by: Other ( stroke) NIH Stroke Scale Internal: Initial- Upon Arrival Level of Consciousness: Alert Level of Consciousness Questions: Answers both questions correctly Level of Consciousness Commands: Performs both tasks correctly Best Gaze: Normal Visual: No visual loss Facial Palsy: Normal Motor Arm (Right): No drift Motor Arm (Left): No drift Motor Leg (Right): No drift Motor Leg (Left): No drift Limb Ataxia: Absent Sensory: Normal Best Language: No aphasia Dysarthia: Normal Extinction and Inattention: No abnormality Score: 0 Critical Care Time Critical Care Time Critical Care Time: Yes Total Critical Care Time: 45 Attestation: Critical Care: The patient was critically ill with a high probability of imminent or life threatening deterioration. I spent greater than 30 minutes of discontinuous time evaluating the patient,delivering critical care at the bedside, discussing and evaluating pertinent data with consultants. Critical care time does not include time spent performing separately billable procedures or teaching. Total time spent performing critical care was 45 minutes. Discharge Plan Discharge Clinical Impression: Fall, Acute alteration in mental status Patient Disposition: [facility] Additional Instructions: Your blood work did reveal anemia but this is not new for you and is chronic. The CT scan of your head without IV contrast did not reveal any skull fracture or bleeding in your brain. The CT angiogram of your head and neck did not reveal any large blood clots causing a stroke or any other significant findings. Your scans are consistent with your old strokes only. At this time I do not have a clear cause for you falling or being altered. It is possible you may have had a transient ischemic attack (TIA). You are on Eliquis and this is the maximal treat to try to prevent you from having other strokes therefore I do not think you need any change in your medications Continue taking medications as prescribed by your providers. Follow-up with your doctor in 2 days. Please return to the emergency department if your symptoms get worse or if you develop any symptoms that are concerning to you. Prescriptions: No Action albuterol sulfate 1.25 mg/3 mL solution for nebulization 2.5 mg inhalation Q4-6H PRN (Reason: shortness of breath or wheezing) 30 Days Qty: 90 3RF budesonide-formoterol [Symbicort] 160-4.5 mcg/actuation HFA aerosol inhaler 2 puff PO BID Qty: 10.2 5RF albuterol sulfate [Ventolin HFA] 90 mcg/actuation HFA aerosol inhaler 2 puff inhalation QID PRN (Reason: for wheezing) Qty: 18 0RF ropinirole 1 mg tablet 2 mg PO BEDTIME pramipexole 0.125 mg tablet 0.125 mg PO BEDTIME PRN (Reason: restless leg syndrome) Rx Instructions: Patient uses if ropinirole is ineffective pantoprazole 40 mg tablet,delayed release (DR/EC) 40 mg PO DAILY PRN (Reason: Acid Reflux) Eliquis 5 mg Tablet 5 mg PO BID Qty: 180 0RF atorvastatin 80 mg Tablet 80 mg PO BEDTIME Qty: 90 0RF acetaminophen 325 mg Tablet 650 mg PO Q6H PRN (Reason: Pain) ascorbic acid (vitamin C) [Vitamin C] 500 mg Tablet 500 mg PO DAILY ferrous sulfate 325 mg (65 mg iron) Tablet 325 mg PO DAILY Icy Hot (menthol) 5 % Adhesive Patch,Medicated 1 patch TOPICAL BID Rx Instructions: left knee docusate sodium 100 mg Capsule 100 mg PO BID 30 Days Qty: 60 0RF oxycodone-acetaminophen 5-325 mg tablet 1 tab PO Q6H PRN (Reason: pain, severe) Qty: 25 0RF Rx Instructions: Partial Fill upon patient request. sertraline 25 mg tablet 25 mg PO DAILY amitriptyline 10 mg tablet 10 mg PO BEDTIME cholecalciferol (vitamin D3) [Vitamin D3] 25 mcg (1,000 unit) capsule 1,000 unit PO DAILY Interventions: ED Discharge Assessment Last Done: 10/20/24 22:56 Discharge Date/Time: 10/20/24 23:06 Print Language: Albanian
--- NOTE | 2024-10-20 19:35 | MHC.EDTECH ---
PTINR performed at 1930, the machine says 1830 due to day light savings time
[2024-10-20 19:38] VITALS: BP 165/76; PULSE 94; O2SAT 97
[2024-10-20] MEDS: iohexoL 350 MG/ML 100 ML INFUS..BTL IV (19:43)
[2024-10-20 19:54] VITALS: BP 160/83; PULSE 104; RESP 17; TEMP 37.3; O2SAT 99; BMI 15.1
--- NOTE | 2024-10-20 19:59 | PC.NURSE ---
[facility], called in as a stroke alert. This RN spoke with nurse at facility who provided background information. Per staff, around 6:20pm patient was found on the ground after supposedly sliding out of bed, no head strike, was then helped up to commode by PAI GOW DEALER's around 6:30pm - where patient suddenly became flaccid on left side, not responding to questions, blank stares w/o eye contact, left sided weakness with inability to squeeze w/ left side, and left sided facial droop (worse from baseline). Per staff these symptoms resolved around 6:50 pm. Hx CVA, on eliquis. Staff also reports that patient had a recent right wrist fracture, causing her to be favoring her left side as of lately. Pt answering all questions appropriately on arrival, A&Ox3. Walker at baseline. Denies pain/dizziness/acute confusion. only reporting dry mouth. CTA head complete. EKG done, patient on bus driver/monitor. #20g iv LFA. call baker within reach. plan of care continues.
[2024-10-20 20:21] LABS: MANUAL DIFF FLAG NO
[2024-10-20 20:22] LABS: Basophils Percent Auto 0.4 % (0-2); Eosinophils Absolute Auto 0.1 X10*3/uL (0.0-0.4); Eosinophils Percent Auto 1.2 % (0-4); Hematocrit 26.9 % (37.0-47.0); Hemoglobin 7.9 g/dl (12.0-16.0); Imm Gran Abs Auto 0.02 X10*3/uL (0.00-0.03); Imm Gran Pct Auto 0.4 % (0.0-0.4); Lymphocytes Absolute Auto 0.5 X10*3/uL (1.2-4.9); Lymphocytes Percent Auto 9.4 % (20-40); Mean Corpuscular HGB Conc 29.4 g/dl (31.0-35.0); Mean Corpuscular Volume 91.8 fL (80.0-98.0); Mean Platelet Volume 8.8 fL (9.4-12.3); Monocytes Absolute Auto 0.5 X10*3/uL (0.1-1.2); Monocytes Percent Auto 8.8 % (2-11); Neutrophils Absolute Auto 4.2 x10*3/uL (2.0-8.3); Neutrophils Percent Auto 79.8 % (45-73); Platelet Count 193 X10*3/uL (160-400); Red Blood Count 2.93 X10*6/uL (4.20-5.50); Red Cell Distribution Width 14.2 % (11.0-16.0); White Blood Count 5.2 X10*3/uL (4.8-10.8)
[2024-10-20 20:30] LABS: INTERNATIONAL NORM RATIO 1.2 (0.9-1.1); Prothrombin Time 13.6 SEC (10.9-12.4)
[2024-10-20 20:33] LABS: Stroke Lab Use COMPLETE
[2024-10-20 20:37] LABS: Alanine Aminotransferase 17 U/L (0-31); Albumin Level 3.7 g/dL (3.5-5.0); Alkaline Phosphatase 90 U/L (39-117); Anion Gap 13 (12-20); Aspartate Amino Transferase 25 U/L (5-31); Bilirubin Direct < 0.2 mg/dL (0.0-0.5); Bilirubin Total 0.2 mg/dL (0.0-1.0); Blood Urea Nitrogen 14 mg/dL (9-16); Calcium 8.7 mg/dL (8.4-10.2); Carbon Dioxide 23 mmol/L (22-29); Chloride 108 mmol/L (96-108); Cholesterol 104 mg/dL (<200); Creatinine Clr Calc Pharmacy 66.6; Estimated Glomerular Filt Rate > 60; Glucose Random 85 mg/dL (60-115); HDL Cholesterol 43 mg/dL (>40); LDL Cholesterol Calculated 47 mg/dL (<100); Potassium 4.5 mmol/L (3.3-5.1); Sodium 139 mmol/L (135-145); Total Protein 6.4 g/dL (6.5-8.0); Triglycerides 71 mg/dL (<150)
--- NOTE | 2024-10-20 21:58 | PC.NURSE ---
[facility] being [facility]. report given by this RN to Consuelo JIMENEZ at facility
[2024-10-20 22:55] VITALS: BP 166/61; PULSE 88; RESP 18; TEMP 37.2; O2SAT 97
[2024-10-20 22:56] VITALS: BP 166/61; PULSE 88; RESP 18; TEMP 37.2; O2SAT 97
[2024-10-21 11:04] LABS: Glucose, Whole Blood 98 mg/dL (60-115)
[2024-10-21 11:12] LABS: INR Whole Blood 1.1 (0.9-1.1); Prothrombin Time Whole Blood 13.6 sec (11.1-13.5)
== END 2024-10-20 23:06 ==
PROVIDERS: Emergency Provider Emergency Medicine Emergency Medical Services
DX: R29.810 Facial weakness (principal); R47.81 Slurred speech; R41.82 Altered mental status, unspecified; R94.31 Abnormal electrocardiogram [ECG] [EKG]; M54.2 Cervicalgia; F17.210 Nicotine dependence, cigarettes, uncomplicated; Z79.01 Long term (current) use of anticoagulants; Z79.899 Other long term (current) drug therapy
CPT/HCPCS: 36415; 70450; 70496; 70498; 80048; 80061; 80076; 82947; 84484; 85025; 85610; 85730; 93005; 99284; Q9967

== ENCOUNTER → 2024-10-20 19:28 | Outpatient (BNV) | payer OTHER, SELFPAY | PROVIDERS: Emergency Provider Emergency Medicine Emergency Medical Services; Visit Provider Student in an Organized Health Care Education/Training Program | DX: I65.22 Occlusion and stenosis of left carotid artery (principal); I25.10 Atherosclerotic heart disease of native coronary artery without angina pectoris; R29.810 Facial weakness | CPT/HCPCS: 70450; 70496; 70498 ==

== ENCOUNTER → 2024-10-20 19:28 | Outpatient (BNV) | payer OTHER, SELFPAY | PROVIDERS: Emergency Provider Emergency Medicine Emergency Medical Services; Visit Provider Internal Medicine | DX: I63.9 Cerebral infarction, unspecified (principal) | CPT/HCPCS: 93010 ==

== ENCOUNTER 2024-12-04 14:28 | Outpatient (AMB) | payer OTHER, SELFPAY ==
[2024-12-04 14:31] VITALS: BP 126/80; PULSE 76; O2SAT 95; BMI 13.2
--- NOTE | 2024-12-04 14:31 | MHC.PC.OV ---
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: No Accompanied by: Self / Same As Patient Allergies aspirin Adverse Reaction (Mild, Verified 12/04/24 15:00) Vomiting Medication List - Last Reconciled 12/08/24 by Ruddy Ortiz MD acetaminophen 650 mg PO Q6H PRN [ADULT BRIEFS (small) As directed] albuterol sulfate 2.5 mg (6 mL) inhalation Q4-6H PRN 30 days amitriptyline 10 mg PO BEDTIME apixaban (Eliquis) 5 mg PO BID ascorbic acid (vitamin C) (Vitamin C) 500 mg PO DAILY atorvastatin 80 mg PO BEDTIME cholecalciferol (vitamin D3) (Vitamin D3) 1,000 units PO DAILY docusate sodium 100 mg PO BID 30 days ferrous sulfate 325 mg PO DAILY food supplemt, lactose-reduced (Ensure Plus) 1 ea PO TIDWMEAL 30 days levetiracetam 500 mg PO BID menthol 5% (Icy Hot (menthol)) 1 patch topical BID ondansetron HCl 4 mg PO Q8H PRN pantoprazole 40 mg PO DAILY PRN pramipexole 0.125 mg PO BEDTIME PRN ropinirole 2 mg PO BEDTIME ropinirole 2 mg PO BEDTIME sertraline 25 mg PO DAILY Symbicort 160-4.5 mcg/actuation (budesonide-formoterol) 2 puffs PO BID NS Ventolin HFA 90 mcg/actuation (albuterol sulfate) 2 puffs inhalation QID PRN NS Tobacco use date assessed: 12/04/24 Dental Screening Dental Screen Date: 12/04/24 Did you have a dental visit in the last 12 months?: No Did you have a dental problem in the last 6 months where you did not have access to dental care?: No Was dental information given to patient?: No HPI establish care HPI Details Patient comes in today to establish care - she is transferring over from her previous PCP, Dr. Melissa Peña She is accompanied today by her home health aide, who states that patient has approved home health a/[employer] services for a total of 3 hours a day from Monday to Monday (8:30 to 10 am and 1:30 to 3 pm on -) and no hours on the weekend Patient report that she has multiple medical issues, including several strokes as well as seizures that occurred when she was in rehab, which patient is still disputing she was found slumped over in her wheelchair when she reportedly went out for a smoke She was found to be significantly anemic on exam of the hospital with a hemoglobin of 7.0 at the time and this was addressed with some blood transfusion She currently also has significant tremors noted in her right hand Her most recent CVA occurred sometime in May 2024 and patient is currently mostly wheelchair-bound because of her residual right-sided weakness arising from her multiple CVAs and would benefit from continuing rehab and physical therapy Patient used to take Coumadin for her CVA but she has since been switched over to Eliquis 5 mg BID so she does not need any referrals to the anti coag clinic for PT/INR monitoring She currently needs Rx refills for a few prescriptions and supplies Patient states that she currently feels okay otherwise She denies any headaches or dizziness Denies any chest pains, no increased shortness of breath No nausea/vomiting, no abdominal pain No change in bowel habits noted [facility] Medical History (Updated 12/08/24 @ 22:47 by Ruddy Ortiz MD) Mood disorder GERD without esophagitis Pure hypercholesterolemia Hemiparesis affecting right side as late effect of cerebrovascular accident (CVA) Underweight (BMI < 18.5) Embolic stroke Embolic cerebral infarction Multiple cerebral infarctions Pulmonary nodule 1 cm or greater in diameter Squamous cell carcinoma of epiglottis Weight loss, unintentional Skin lesion of back Immunization declined Fracture of proximal end of fibula Contusion of leg, right Vaccination declined by patient Cervical lymphadenopathy Carotid stenosis, right Microcytic hypochromic anemia Left cervical lymphadenopathy Bilateral carotid bruits Smoker Idiopathic hypercalciuria Thyroid nodule Hx of angiography Vitamin D deficiency Goiter History of tachycardia GERD (gastroesophageal reflux disease) Gastritis Duodenitis Pyloric ulcer History of alcohol abuse Myopia of both eyes Papanicolaou smear declined Mammogram declined Smoker unmotivated to quit Restless leg syndrome Aortoiliac occlusive disease Tubular adenoma of colon Chronic Helicobacter pylori gastritis COPD (chronic obstructive pulmonary disease) Fibromyalgia Peripheral vascular disease Osteoporosis Surgical History Hx of coronary angiogram History of removal of skin mole Hx of colonoscopy History of surgery on lower extremity Hx of foot surgery History of surgical removal of lesion (~10/28/21) History of lung biopsy (~04/2021) History of exploratory thoracotomy (~04/2018) History of tonsillectomy History of endarterectomy (~05/2020) History of ankle surgery (~11/2011) History of myringotomy History of appendectomy History of tubal ligation Family History Father Substance use disorder Mother Osteoporosis Substance use disorder Brother Substance use disorder Sister Substance use disorder Lung cancer Sister Substance use disorder Brother Substance use disorder Social History Household Members: None Housing: Residential Housing Other:: Rehab Are you a primary rn progressive care unit to a significant other at home: No Do you presently have visiting nurse or other home services: No Unable to assess alcohol history related to: Unknown Alcohol intake: former Patient Tobacco Use Status: Current everyday Tobacco user Tobacco use type: Cigar Cigarette Packs Per Day: 0.5 Cigarettes Per Day: 4 Years Smoked: 50+ e-Cigarette/Vaping Use: Never Used Second Hand Smoke Exposure: No Advance Directives Date on File: 12/12/23 service: No Current occupational status: disabled Current occupation: rt handed Current occupational exposures/hazards: No Cognitive needs: No Hearing needs: No Vision needs: Yes Questionnaire PHQ-9 Over the last 2 weeks, how often have you been bothered by any of the following problems? 1. Little interest or pleasure in doing things: several days 2. Feeling down, depressed, or hopeless: not at all 3. Trouble falling or staying asleep, or sleeping too much: more than half the days 4. Feeling tired or having little energy: more than half the days 5. Poor appetite or overeating: not at all 6. Feeling bad about yourself - or that you are a failure or have let yourself or your family down: not at all 7. Trouble concentrating on things, such as reading the newspaper or watching television: not at all 8. Moving or speaking so slowly that other people could have noticed. Or the opposite - being so fidgety or restless that you have been moving around a lot more than usual: nearly every day 9. Thoughts that you would be better off or of hurting yourself in some way: not at all Total score: 8 Depression Screening Interpretation: Positive Depression Screening Follow-up: Existing condition and In treatment Depression Screening Done: Yes 92744 - PHQ-9 Billing: Yes Source: Developed by Drs. Scout Amaya, Terri Sánchez, Javier Fry and colleagues, with an educational nkechi from [employer]. Thrive Questionnaire Date Thrive assessed: 12/04/24 I am a: Parent/Caregiver What is your living situation today?: I have a steady place to live Within the past 12 months, did the food you bought not last and you didn't have the money to get more?: Never true Within the past 12 months, did you worry whether your food would run out before you got money to buy more?: Never true Do you have trouble paying for medicines?: Yes Do you have trouble getting transportation to medical appointments?: No Do you have trouble paying your heating and electricity bill?: No Do you have trouble taking care of your child, family member or friend?: No Do you have trouble with day-to-day activities such as bathing, preparing meals, shopping, managing finances, etc.?: Yes Are you currently unemployed and looking for a job?: No Are you interested in more education?: No Please select the resources that you would like help with: Transportation Currently or been in a relationship where the following occur: No concerns reported THRIVE Score: 0 AUDIT C Alcohol Use Questionnaire (AUDIT-C) 1. How often do you have a drink containing alcohol?: Never 3. How often do you have six or more drinks on one occasion?: Never Total Score: 0 Score Reviewed/Action Taken: Yes ALBINA-7 AMB Questionnaire ALBINA-7 Date ALBINA - 7 assessed: 12/04/24 Feeling nervous, anxious, or on edge: 0 = Not at all Not being able to stop or control worryin = Not at all Worrying too much about different things: 0 = Not at all Trouble relaxin = More than half the days Being so restless that it is hard to sit still: 2 = More than half the days Becoming easily annoyed or irritable: 0 = Not at all Feeling afraid as if something awful might happen: 0 = Not at all Total ALBINA-7 score (0-4 normal; 5-9 mild; 10-14 moderate; 15-21 severe): 4 Source: Developed by Drs. Scout Amaya, Terri Sánchez, Javier Fry and colleagues, with an educational nkechi from [employer]. Review of Systems Const Denies chills, Reports fatigue, Denies fever(s), Denies headache(s) and Reports weakness (right-sided) ENT Denies dysphagia, Denies dizziness, Denies otalgia, Denies headache(s), Denies neck pain, Denies odynophagia and Denies sore throat Card Denies chest pain, Denies palpitations and Denies dyspnea Resp Denies chest congestion, Denies cough and Denies dyspnea GI Denies abdominal pain, Denies constipation, Denies dysphagia, Denies heartburn, Denies diarrhea, Denies nausea, Denies odynophagia and Denies vomiting Denies difficulty voiding, Denies nocturia and Denies dysuria Musc Denies back pain and Denies neck pain Skin/Breast Denies rash Neuro Denies dizziness, Denies headache(s) and Reports weakness (right-sided) Psych Reports anxiety and Reports depression Endo Reports fatigue and Denies palpitations Physical exam (Primary Care) Vital Signs: Last Vital Signs Pulse 76 12/04/24 14:31 BP 126/80 12/04/24 14:31 Pulse Ox 95 12/04/24 14:31 Oxygen Delivery Method Room Air 12/04/24 14:31 BMI result Body Mass Index 13.2 Tobacco/Smoking Status: Tobacco use Status Tobacco use date assessed 12/04/24 12/04/24 14:37 Patient Tobacco Use Status Current everyday Tobacco 12/04/24 14:37 Tobacco use type Cigar 12/04/24 14:37 e-Cigarette/Vaping Use Never Used 12/04/24 14:37 PHQ-9: PHQ-9 Score PHQ-9: Total score 8 12/04/24 15:12 Depression Screening Interpretation: Positive Depression Screening Follow-up: Existing condition and In treatment Thrive Assessment: Date of Thrive Assessment Date Thrive assessed 12/04/24 12/04/24 14:37 Currently or been in a relationship where the following occur: No concerns reported Const General: no acute distress and alert Limitations: wheelchair HENMT Ears: TM's normal bilaterally and EAC's normal Throat: Yes posterior oropharynx normal and Yes tonsils normal (no TP congestion) Neck Neck: Yes supple and No lymphadenopathy Thyroid: Thyroid normal Resp Auscultation: clear to auscultation bilaterally, no rales and no wheezes Cardio Rate: regular rate Rhythm: regular rhythm Heart sounds: no murmurs GI Palpation (GI): Soft to palpation and nontender Auscultation: normal bowel sounds General: Yes no CVA tenderness Back/Spine/Pelvis Back: no CVA tenderness Thoracic/Lumbar Spine: lumbar spinal tenderness Skin Rashes: no rashes Neuro Other: (+) right hemiparesis Motor exam (neuro): Tremors during motor activity present right upper extremity Extrem General: Yes no clubbing, cyanosis or edema Coding Level of Care Code New Pt Level 4 (73773) Diagnoses Cerebrovascular accident (CVA) due to embolism of cerebral artery I63.40 Precerebral and cerebral artery: unspecified cerebral artery Hemiparesis affecting right side as late effect of cerebrovascular accident (CVA) I69.351 Nonintractable epilepsy without status epilepticus, unspecified epilepsy type G40.909 Epilepsy type: unspecified Intractability: not intractable Status epilepticus: without status epilepticus Pure hypercholesterolemia E78.00 Chronic obstructive pulmonary disease, unspecified COPD type J44.9 COPD type: unspecified COPD GERD without esophagitis K21.9 Restless leg syndrome G25.81 Iron deficiency anemia secondary to inadequate dietary iron intake D50.8 Anemia type: iron deficiency Iron deficiency anemia type: inadequate dietary iron intake Vitamin D deficiency E55.9 Constipation, unspecified constipation type K59.00 Constipation type: unspecified constipation type Mood disorder F39 Urinary incontinence, unspecified type R32 Incontinence type: urinary Urinary Incontinence type: unspecified incontinence Underweight (BMI < 18.5) R63.6; Z68.1 Additional Codes PHQ-9 - 74517 - PHQ-9 Billing: Yes ([id number]) Assessment & Plan Assessment & Plan (1) Embolic stroke: Code(s): I63.9 - Cerebral infarction, unspecified Category: Medical Qualifiers: Precerebral and cerebral artery: unspecified cerebral artery Qualified Code(s): I63.40 - Cerebral infarction due to embolism of unspecified cerebral artery Plan: (+) Hx of mmultiple CVAs in the past, with residual right hemiparesis at present Continue Eliquis 5 mg BID and Atorvastatin 80 mg QD Patient states that she has not seen Neurology for follow-up since her last hospital admission Will refer patient to Neurology for continuing follow-up and management (2) Hemiparesis affecting right side as late effect of cerebrovascular accident (CVA): Code(s): I69.351 - Hemiplegia and hemiparesis following cerebral infarction affecting right dominant side Category: Medical Plan: Continue PT as scheduled (3) Epilepsy: Code(s): G40.909 - Epilepsy, unspecified, not intractable, without status epilepticus Category: Medical Qualifiers: Epilepsy type: unspecified Intractability: not intractable Status epilepticus: without status epilepticus Qualified Code(s): G40.909 - Epilepsy, unspecified, not intractable, without status epilepticus Plan: Continue Levetiracetam 500 mg BID Follow up with neurology as scheduled (4) Pure hypercholesterolemia: Code(s): E78.00 - Pure hypercholesterolemia, unspecified Category: Medical Plan: Reinforced low cholesterol diet Continue Atorvastatin 80 mg QD Will have patient recheck her labs and fasting lipids in 4 months for follow up (5) COPD (chronic obstructive pulmonary disease): Comment: Code(s): J44.9 - Chronic obstructive pulmonary disease, unspecified Category: Medical Qualifiers: COPD type: unspecified COPD Qualified Code(s): J44.9 - Chronic obstructive pulmonary disease, unspecified Plan: Continue Symbicort 160-4.5 mcg 2 inhalations BID and Albuterol HFA 1 to 2 inhalations Q 6 hours PRN (6) GERD without esophagitis: Code(s): K21.9 - Gastro-esophageal reflux disease without esophagitis Category: Medical Plan: Dietary restrictions reinforced Continue Pantoprazole 40 mg qd (7) Restless leg syndrome: Code(s): G25.81 - Restless legs syndrome Category: Medical Plan: Continue Ropinirole 2 mg Q HS Patient uses Pramipexole 0.125 mg Q HS if Ropinirole is ineffective Follow up with neurology as scheduled (8) Anemia: Code(s): D64.9 - Anemia, unspecified Category: Medical Qualifiers: Anemia type: iron deficiency Iron deficiency anemia type: inadequate dietary iron intake Qualified Code(s): D50.8 - Other iron deficiency anemias Plan: Continue Ferrous Sulfate 325 mg QD Will recheck his CBC in 4 months for follow up (9) Vitamin D deficiency: Code(s): E55.9 - Vitamin D deficiency, unspecified Category: Medical Plan: Continue Vitamin D3 1000 units QD (10) Constipation: Code(s): K59.00 - Constipation, unspecified Category: Medical Qualifiers: Constipation type: unspecified constipation type Qualified Code(s): K59.00 - Constipation, unspecified Plan: Patient is encouraged to increase his oral fluids and dietary fiber intake Continue Colace 100 mg BID (11) Mood disorder: Code(s): F39 - Unspecified mood [affective] disorder Category: Medical Plan: Continue Amitriptyline 10 mg Q HS and Sertraline 25 mg QD Follow up with neurology/psychiatry as scheduled (12) Incontinence: Code(s): R32 - Unspecified urinary incontinence Category: Medical Qualifiers: Incontinence type: urinary Urinary Incontinence type: unspecified incontinence Qualified Code(s): R32 - Unspecified urinary incontinence Plan: Per request, Rx for adult pull ups were made out and faxed over to [facility] (13) Underweight (BMI < 18.5): Code(s): R63.6 - Underweight; Z68.1 - Body mass index [BMI] 19.9 or less, adult Category: Medical Plan: Will start patient on Ensure Plus - Rx also faxed to [facility] Plan Follow up in 4 months Orders: Orders Levetiracetam Keppra 4 Months G40.909 - Epilepsy, unspecified, not intractable, without status epilepticus Complete Blood Count Auto Diff 4 Months D64.9 - Anemia, unspecified Comprehensive [place]. Panel Fast 4 Months E78.00 - Pure hypercholesterolemia, unspecified UA CC w/rflx Micro + Cult 4 Months R30.0 - Dysuria Vitamin D 25-OH Total 4 Months E55.9 - Vitamin D deficiency, unspecified Lipid Panel 4 Months E78.00 - Pure hypercholesterolemia, unspecified TSH reflex Free T4 4 Months E78.00 - Pure hypercholesterolemia, unspecified IRON PROFILE 4 Months D50.9 - Iron deficiency anemia, unspecified Vitamin B12 and Folate 4 Months E53.8 - Deficiency of other specified B group vitamins Referrals Neurology Referral G40.909 - Epilepsy, unspecified, not intractable, without status epilepticus, I63.9 - Cerebral infarction, unspecified Medications: New [ADULT BRIEFS (small)] As directed 100 ea 12RF R32 - Unspecified urinary incontinence food supplemt, lactose-reduced (Ensure Plus) Chocolate-flavored 1 ea PO TIDWMEAL 30 days 5,688 mL 12RF R63.6 - Underweight, Z68.1 - Body mass index [BMI] 19.9 or less, adult
--- OUTSIDE RECORDS SUMMARY | 2024-12-04 17:21 | XMS_ITS | Data Portability ---
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 Procedures Surgical History Date Name Laterality Status Provider Name and Address Organization Details Recorded Time 01/18/2024 FOL_DP completed МАРИНА TIJERINA MD [address] [place] [address], [place], [address], [facility] 01/18/2024 14:22:46 Imaging Results None recorded. Procedure Notes None recorded. Medical Equipment None Reported. Allergies Allergen ID Allergen Name Allergen Category Reaction Reaction Severity Criticality Documentation Date Start Date Code Code System Note Provider Name and Address Organization Details Recorded Time 127998 aspirin medicatio n Not available Not available Not available 01/18/2024 1191 RxNorm Becka ruiz [facility] 14:01:27 234138 lobster allergeni c extract food Not available Not available Not available 01/18/2024 79187 1 RxNorm Becka ruiz [facility] 14:01:39 Medications Name Sig Start Date [...] Updated DateTime 01/18/2024 154.94 cm 13.2 kg/m2 52385.47 g Becka Sanchez [place] [facility] 01/18/2024 13:59:20 Social History Question Answer Notes LastModified by Organizat ion Details LastModified Time Tobacco Smoking Status Current Every Day Smoker МАРИНА TIJERINA MD [address] [place] [address], [phone], [place] [facility] 01/18/2024 14:06:41 How Much Tobacco Do You Smoke? 2 PPD [email or web address] Information not available 01/18/2024 Sex: Unknown Functional Status None recorded. Mental Status None recorded. Family History Nothing Reported. Medical History Condition Response Cancer Y Arthritis Y COPD Y Gynecological HistoryNo gynecological history recorded. 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 (O) SUMI Arroyo [id number] Soraida Arroyo Notes Date Note Type Note Provider Name and Address Organization Details Recorded Time 01/18/2024 text/html Malignant neopla sm of supraglottis [id number] by Dr Salomón Chen 10/24/23-10/28/23 Admitted to [facility] - transfer from [place].10/24/2023 CT neck with contrast at [facility] radiology shows enhancing ulcerated nodular mucosal mass [...] squamous cell carcinoma p16 negative10/25/23 ENT at [facility] exam - results not available 11/27/2023 PET/CT at [facility] MRI shows left epiglottis uptake extends from the midline to level of vocal cords. Level 2 lymph nodes measuring 18 mm and 15 mm on the left side. 1 cm spiculated nodule right upper lobe.12/14/[address] More12/19/20[address] onc[address] consult with Dr. Lorenzana12/26/2023 swallow therapy Aleah TIJERINA MD [address] [place] [address], [phone], [facility] 01/18/2024 14:24:27 OBGyn Episode No OBEpisode recorded.
--- OUTSIDE RECORDS SUMMARY | 2024-12-04 17:21 | XMS_ITS | Clinical Summary ---
Author Organization [facility] Address [address] [place] [address] Care Team Providers Care Bias Machine Operator Helper Name Role Phone Jennifer Flores MD Primary Care Provider [phone] Allergies Active Allergy Reactions Criticality Noted Date Comments Aspirin Unknown/Patient and Family Unable to Define Medium 10/25/2023 Medications albuterol, preservative free, (ACCUNEB) 1.25 mg/3 mL nebulizer solution INHALE 2.5 MG (6 ML) EVERY 4 TO 6 HOURS NEEDED FOR SHORTNESS OF BREATH OR WHEEZING FOR 30 DAYS 4 Active Ventolin HFA 108 (90 Base) MCG/ACT inhaler Inhale 2 puffs 4 times daily (every 6 hours) as needed for wheezing or shortness of breath. 4 Active Symbicort 160-4.5 MCG/ACT inhaler Inhale 2 puffs 2 (two) times a day. 4 Active PANTOprazole (PROTONIX) 40 MG EC tablet Take 1 tablet (40 mg total) by mouth daily. 4 Active pramipexole (miraPEx) 0.125 MG tablet Take 1 tablet (0.125 mg total) by mouth nightly. 4 Active rOPINIRole (REQUIP) 1 MG tablet Take 1 tablet (1 mg total) by mouth nightly. 4 Active clopidogrel (PLAVIX) 75 MG tablet Take 1 tablet (75 mg total) by mouth daily. Active cyanocobalamin (VITAMIN B12) 1000 MCG tabletIndications :Anemia, unspecified type Take 1 tablet (1,000 mcg total) by mouth daily. 30 tablet 4 Active folic acid (FOLVITE) 1 MG tabletIndications :Anemia, unspecified type Take 1 tablet (1 mg total) by mouth daily. 30 tablet 4 Active multivitamin with minerals Tab tabletIndications :Severe protein-calorie malnutrition Take 1 tablet by mouth daily. 30 tablet 4 Active Active Problems Problem Noted Date Diagnosed Date Severe protein-calorie malnu trition (HCC)chronic illness. Severe fat loss orbital, buccal, tricepts. Severe muscle wasting temporalis, pectoralis major, deltoid, trapezius, quadriceps, gastrocnemius 10/26/2023 Neck mass 10/25/2023 Anemia 10/25/2023 Dysphagia 10/25/2023 Drop in hemoglobin 10/25/2023 COPD (chronic obstructive pulmonary disease) Social History Tobacco Use Types Packs/Day Years Used Date Smoking Tobacco: Never Assessed [facility] Utilities Answer Date Recorded In the past 12 months has th e adFreeq, gas, oil, or water company threatened to [...] place to sleep or slept in a intermediate (including now)? No 10/26/2023 Comments Unknown Sex and Gender Information Value Date Recorded Sex Assigned at Female 10/24/2023 9:57 PM EDT Legal Sex Female 5:44 PM EDT Gender Identity Female 10/24/2023 9:57 [...] series) 2022 Influenza Vaccine 03/14/2024 COVID-19 Vaccine ( - 2023-2 5 season) 2024 Hepatitis B Vaccines Aged Out No long er eligible based on patient's age to complete this topic Insurance MEDICAID OUT OF STATE [facility] Advance Directives * Full Code (Latest Code Status on File) Date Activated Date Inactivated Comments 10/25/2023 12:42 AM Care Teams Bias Machine Operator Helper Relationship Specialty Start Date End Date Jennifer Flores MD [address] [place] [id number] PCP - General Internal Medicine 10/26/23
--- OUTSIDE RECORDS SUMMARY | 2024-12-04 17:21 | XMS_ITS ---
Author Organization [facility] Care Team Providers Care Greens Laborer Name Role Phone Elizabeth White Unavailable Unavailable Sveta Edmondson Unavailable Unavailable Ravi Hendrickson Unavailable Unavailable Rebecca Peña Unavailable Unavailable Kailey Bose Unavailable Unavailable Soja, Jasmin Unavailable Unavailable Carroll Traylorise Unavailable Unavailable Milagro TEA TASTER, Willie Brown Unavailable Unavailable Leroy, Kemi Unavailable Unavailable [place], Kemi Unavailable Unavailable Elenita, Paris Unavailable Unavailable Valerie Chiang Unavailable Unavailable Priya Barger Unavailable Unavailable Rere, Amna Unavailable Unavailable Anson Quinones Unavailable Unavailable Renetta Guillory Unavailable Unavailable Samuel, Gelacio Unavailable Unavailable Allergies and adverse reactions Code CodeSystem Substance Reaction Severity StartDate Concern Status 733372042 SNOMED CT Lobster - dietary Unknown 09/10/2024 active 1191 RXNORM Aspirin Moderate 05/30/2024 active Care Team Name Role Address Phone Organization Mc Peña PCP [address] [facility] [address], [place], [address], [place] (Office): : [facility] 05/30/2024 - 12/02/2024 Elizabeth White Attending Physician [address] [facility] [address], [place], [address], [facility] (Office): : [phone] [facility] 05/30/2024 - 12/02/2024 Sveta Edmond[place], [address], [facility] (Office): : [facility] 05/30/2024 - 12/02/[address] Att[address] Physician [address], [facility] 05/30/2024 - 12/02/2024 Kailey Bose Attending Physician [facility] (Office): : [facility] 05/30/2024 - 12/02/2024 Jasmin Howe Attending Physician [address] [facility] [address], [place], [address], [facility] (Office): : [facility] 05/30/2024 - 12/02/2024 Susie Traylor Attending Physician [address] [facility] [address], [place], [address], [facility] (Office): : [facility] 05/30/2024 - 12/02/2024 Willie Humphrey NP Attending Physician [address] [facility] [address], [place] [id number], [facility] (Office): [facility] 05/30/2024 - 12/02/[address], [facility] 05/30/2024 - 12/02/2024 Kemi Bustillo Attending Physician [address] [place] [address], [place], [address], [facility] (Office): : [facility] 05/30/2024 - 12/02/[address] Paris [address]ong [address] Physician CT, [facility] 05/30/2024 - 12/02/2024 Valerie Chiang Attending Physician [place], [facility] 05/30/2024 - 12/02/2024 Priya Barger Attending Physician [address] [place] [address], [address], [facility] (Office): : [phone] [facility] 05/30/2024 - 12/02/2024 Amna Jernigan Attending Physician [address] [place] [address], [place], [address], [facility] (Office): [phone]): [phone] [facility] 05/30/2024 - 12/02/2024 Anson Quinones Attending Physician [address] [place] [address], [place], [address], [facility] (Office): : [facility] 05/30/2024 - 12/02/2024 Renetta Guillory Attending Physician [address] [place] [address], [place], [address], [facility] (Office): [facility] 05/30/2024 - 12/02/2024 Gelacio Baker Attending Physician [facility] 05/30/2024 - 12/02/2024 Goals Section Description Status Target Date [facility] resident will show impr ovement to maximum potential with mobility and cognition by review date. Active 02/19/2025 Soraida will be able to communi alexandr needs daily by through the review date. Active 02/19/2025 [facility] will be free from s/sx of pain, or will express/exhibit relief of pain after administration of ordered meds, alternative comfort measures. Active 02/19/2025 Soraida will be free from compl ications of cardiac problems through the review date. Active 02/19/2025 Soraida will be free of falls through the review da te. Active 02/19/2025 S[facility] will comply with mouth care at least daily through review date. Active 02/19/2025 Soraida will have no complicati ons related to SOB though the review date. Active 02/19/2025 Soraida will remain free of com plications related to altered hematological status through the review date. Active 02/20/20 Soraida will be active in activ ity programs to her liking 2x a week through next review date. will continue to be open to room visits. Active 02/19/2025 Soraida will be free from disco mfort or adverse reactions related to anticoagulant use through the review date. Active 02/19/2025 Soraida will consume >75% of hi gher kcal items provided and will select meal preferences with po's avg >50% of meals to promote 1/2 to 1#/week to goal wt of 117#.. Active 02/19/2025 Soraida will improve current le maem of function in (through the review date. Active 02/19/2025 S[place]ida will maintain or develo p clean and intact skin by the review date. Active 02/19/2025 Soraida will maintain the abili ty to seek social contact and stimulation through the review date. Active 02/19/2025 Soraida will maintain weight an d nutritional balance through the review date. Active 02/19/2025 Soraida will not have an interr uption in normal activities due to pain through the review date. Active 02/19/2025 Soraida will not suffer injury from unsafe smoking practices through the next review date. Active 02/19/2025 Soraida will show no decline in visual function through the review date. Active 02/19/2025 The resident will be able to make basic needs known by on a daily basis through the review date. Active 02/19/2025 The resident will be free of minor injury throug h the review date. Active 02/19/2025 soraida shall be in the least restrictive environme nt by next review. Active 02/19/2025 soraida's Advanced Directives shall be honored thro [facility] next review Active 02/19/2025 Functional Status Code Name Recorded Time Value Entered By Chair/qws-ew-elbzn transfer 12/02/2024 Not assessed [email or web address] Eating 12/01/2024 Independent dloubier Lower body dressing 12/02/2024 Not assessed [email or web address] Lying to sitting on side of bed 12/02/2024 Not assessed [email or web address] Oral hygiene 12/02/2024 Not assessed [email or web address] Personal hygiene 12/02/2024 Substantial/maximal assi stance [email or web address] Roll left and right 12/02/2024 Setup or clean-up ass istance [email or web address] Shower/bathe self 12/02/2024 Not assessed [email or web address] Sit to lying 12/02/2024 Not assessed [email or web address] Sit to stand 12/02/2024 Not assessed [email or web address] Toilet transfer 12/02/2024 Substantial/maximal jennifer tance [email or web address] Toileting hygiene 12/02/2024 Substantial/maximal ass istance [email or web address] Upper body dressing 12/02/2024 Not assessed [email or web address] Walk 10 feet 12/02/2024 Not assessed [email or web address] Wheel 150 feet 12/02/2024 Not assessed [email or web address] Wheel 50 feet with two turns 12/02/2024 Not assessed [email or web address] Immunizations Immunization Status Vaccine Details Vaccine Code CodeSystem Date Notes COVID-19 Bivalent Vaccine cancelled SARS-COV-2 (COVID-19) vaccine, mRNA, spike protein, LNP, bivalent, preservative free, 50 mcg/0.5 mL or 25 mcg/0.25 mL dose 229 CVX created date: 06/05/2024 consent date: 06/05/2024 Resident offered and refused [id number] Covid vaccine. Educated on risk vs benefit of vaccine, verbalized understandin g. PVC20 cancelled Pneumococcal conjugate vaccine 20-valent (PCV20), polysaccharide [id number] conjugate, adjuvant, preservative free 216 CVX created date: 06/05/2024 consent date: 06/05/2024 Resident educated on risk vs benefit of refusal of vaccine, verbalized understandin g. Influenza, high dose seasonal cancelled Influenza, high-dose, split virus, trivalent, injectable, preservative free 135 CVX created date: 06/05/2024 consent date: 06/05/2024 Resident educated on risk vs benefits of vaccine, verbalized understandin g. Comirnaty Booster cancelled SARS-COV-2 (COVID-19) vaccine, mRNA, spike protein, LNP, preservative free, boston-sucrose, 30 mcg/0.3 mL dose 309 CVX created date: 11/01/2024 consent date: 06/19/2024 Educated by on 11/01/2024 Medications Section Medication Name Status Code CodeSystem Dose Route Frequency Admin Type Sig Text Start Date End Date Fleet Enema Enema 7-19 GM/118ML active 338147 RXNORM 1 dose Rectal as needed PRN Insert 1 dose rectal ly as needed for Consti pation (Step 3) as needed if no bowel moveme nt for 8 hours after bisaco dyl suppos itory. 2023 - Pantoprazole Sodium Oral Tablet Delayed Release 40 MG active 913957 RXNORM 1 tablet Oral as needed PRN Give 1 tablet by mouth every 24 hours as needed for acid reflux give daily in am as needed 2023 - Ventolin HFA Inhalation Aerosol Solution 108 (90 Base) MCG/ACT active 478735 RXNORM 2 puff Inhalat ion as needed PRN 2 puff inhale orally every 6 hours as needed for wheezi ng relate d to CHRONI C OBSTRU CTIVE PULMON SAIRA DISEAS E, UNSPEC IFIED (J44.9 ) 2023 - Pramipexole Dihydrochlori de Oral Tablet 0.125 MG active 611838 RXNORM 1 tablet Oral as needed PRN Give 1 tablet by mouth every 24 hours as needed for RLS use if ropini role ineffe ctive 2023 - Atorvastatin Calcium Oral Tablet 80 MG active 402709 RXNORM 1 tablet Oral at bedtime Routine Give 1 tablet by mouth at bedtim e for HLD 2023 - Albuterol Sulfate Inhalation Nebulization Solution (2.5 MG/3ML) 0.083% active 508989 RXNORM 3 ml Inhalat ion as needed PRN 3 ml inhale orally via nebuli zer every 4 hours as needed for copd relate d to CHRONI C OBSTRU CTIVE PULMON SAIRA DISEAS E, UNSPEC IFIED (J44.9 ) SALINA = Clear lung sounds A DV = Buddhist itious D IMI = Dimini shed 2023 - Milk of Magnesia Suspension 400 MG/5ML active 393084 RXNORM 30 ml Oral as needed PRN Give 30 ml by mouth as needed for Consti pation (Step 1) As needed if no bowel moveme nt for three days. (Do not use for Hemodi alysis patien ts). 2023 - Acetaminophen Tablet 325 MG active 377759 RXNORM 2 tablet Oral as needed PRN Give 2 tablet by mouth every 6 hours as needed for Pain Pain Total dosage for acetam inophe n and medica tions that contai n acetam inophe n should not exceed 3 grams / 24 hours. AND Give 2 tablet by mouth every 6 hours as needed for Fever greate r than 100.0F Total dosage for acetam inophe n and medica tions that contai n acetam inophe n should not exceed 3 grams / 24 hours. 2023 - 393045 RXNORM 2 tablet Oral as needed PRN Give 2 tablet by mouth every 6 hours as needed for Pain Pain Total dosage for acetam inophe n and medica tions that contai n acetam inophe n should not exceed 3 grams / 24 hours. AND Give 2 tablet by mouth every 6 hours as needed for Fever greate r than 100.0F Total dosage for acetam inophe n and medica tions that contai n acetam inophe n should not exceed 3 grams / 24 hours. 2023 - Bisacodyl Suppository 10 MG active 538847 RXNORM 1 suppos itory Rectal as needed PRN Insert 1 suppos itory rectal ly as needed for If no bowel moveme nt for 8 hours after Milk of Magnes ia 2023 - Symbicort Inhalation Aerosol 160-4.5 MCG/ACT active 624960 6 RXNORM 2 puff Inhalat ion every morning and at bedtime Routine 2 puff inhale orally every mornin g and at bedtim e for copd 2023 - rOPINIRole HCl Oral Tablet 1 MG active 381816 RXNORM 2 mg Oral at bedtime Routine Give 2 mg by mouth at bedtim e for RLS give 2mg q HS 2023 - Vitamin C Oral Tablet active 500 mg Oral in the morning Routine Give 500 mg by mouth in the mornin g for Anemia 2023 - Docusate Sodium Oral Capsule 100 MG aborted 472479 5 RXNORM 1 capsul e Oral two times a day Routine Give 1 capsul e by mouth two times a day for consti pation 11/28 Zofran Oral Tablet 4 MG active 084809 RXNORM 4 mg Oral as needed PRN Give 4 mg by mouth every 8 hours as needed for nausea / vomiti ng 2023 - Amitriptyline HCl Oral Tablet 10 MG aborted 114692 RXNORM 10 mg Oral at bedtime Routine Give 10 mg by mouth at bedtim e for insomn ia 11/19 Sertraline HCl Oral Tablet active 25 mg Oral one time a day Routine Give 25 mg by mouth one time a day for depres laurence relate d to UNSPEC IFIED SEVERE PROTEI N-JOE MARIA DOLORES MALNUT RITION (E43) 2024 - Nasal [place] Nasal Solution active 1 spray Nasal one time a day Routine 1 spray in both nostri ls one time a day for drynes s in nostri l due to oxygen use 2024 - Iron Oral Tablet 325 (65 Fe) MG active 325 mg Oral in the morning Routine Give 325 mg by mouth in the mornin g for Anemia 2024 - Cold & Hot Medicated External Patch 5 % active n/a n/a Topical as needed PRN Apply to Bilat knees topica lly every 12 hours as needed for Pain May have patch to bilat knees q every 12hour s 2024 - Multivitamin- Minerals Oral Tablet active 1 tablet Oral one time a day Routine Give 1 tablet by mouth one time a day for Supple ment 2024 - Keppra Oral Tablet 500 MG active 105537 RXNORM 1 tablet Oral two times a day Routine Give 1 tablet by mouth two times a day for Seizur e disord er 2024 - Warfarin Sodium Oral Tablet 3 MG complete d 884435 RXNORM 3 mg Oral one time a day Routine Give 3 mg by mouth one time a day for Cardia c until 2024 23:59 11/06 Warfarin Sodium Oral Tablet 3 MG complete d 969103 RXNORM 3 mg Oral one time only One Time Only Give 3 mg by mouth one time only for Cardia c until 2024 23:59 11/03 Warfarin Sodium Oral Tablet 2 MG complete d 190194 RXNORM 2 mg Oral in the evening Routine Give 2 mg by mouth in the evenin g for PT/INR for 2 Days 11/09 Warfarin Sodium Oral Tablet 2.5 MG aborted 789313 RXNORM 2.5 mg Oral in the evening Routine Give 2.5 mg by mouth in the evenin g for PT/INR for 2 Days 11/11 Warfarin Sodium Oral Tablet 2 MG complete d 014149 RXNORM 2 mg Oral in the evening Routine Give 2 mg by mouth in the evenin g for Brain infarc ts until 2024 18:00 11/13 Warfarin Sodium Oral Tablet 2 MG complete d 654125 RXNORM 1 tablet Oral in the evening Routine Give 1 tablet by mouth in the evenin g for Brain Infarc t for 2 Days 11/17 Warfarin Sodium Oral Tablet 2.5 MG complete d 193545 RXNORM 1 tablet Oral in the evening Routine Give 1 tablet by mouth in the evenin g relate d to TRANSI ENT CEREBR AL ISCHEM IC ATTACK , UNSPEC IFIED (G45.9 ) until 2024 23:59 11/22 Warfarin Sodium Oral Tablet 2 MG complete d 889906 RXNORM 1 tablet Oral one time a day Routine Give 1 tablet by mouth one time a day for Coumad in therap y for 2 Days 11/25 Warfarin Sodium Oral Tablet 2.5 MG complete d 497904 RXNORM 2.5 mg Oral in the evening Routine Give 2.5 mg by mouth in the evenin g for coumad in until 2024 16:00 11/29 Docusate Sodium Oral Capsule 100 MG active 802405 5 RXNORM 1 capsul e Oral as needed PRN Give 1 capsul e by mouth every 12 hours as needed for as needed for consti pation 04/17/ 2025 - Warfarin Sodium Oral Tablet 2.5 MG complete d 129182 RXNORM 1 tablet Oral one time a day Routine Give 1 tablet by mouth one time a day for CHF for 2 Days 12/01 Mental Status Section Date Assessment Total Score Description 11/07/2024 BIMS 15 cognitively int act CAM 0 No delirium ind icated 10/22/2024 CAM 0 No delirium ind icated Problems Problem # Description Date of onset Resolved Date Code CodeSystem Concern Status 1 ADJUSTMENT DISORDER WITH MIXED ANXIETY AND DEPRESSED MOOD [address] active 2 ENCOUNTER FOR OTHER ORTHOPEDIC AFTERCARE [address] active 3 OTHER ABNORMALITIES OF GAIT AND MOBILITY [address] active 4 UNSPECIFIED FRACTURE OF SHAFT OF RIGHT ULNA, SUBSEQUENT ENCOUNTER FOR CLOSED FRACTURE WITH ROUTINE HEALING [address] active 5 UNSPECIFIED FRACTURE OF THE LOWER END OF RIGHT RADIUS, SUBSEQUENT ENCOUNTER FOR CLOSED FRACTURE WITH ROUTINE HEALING [address] active 6 OTHER PULMONARY ASPERGILLOSIS [address] active 7 CEREBRAL INFARCTION DUE TO EMBOLISM OF UNSPECIFIED CEREBRAL ARTERY [address] active 8 CHRONIC OBSTRUCTIVE PULMONARY DISEASE, UNSPECIFIED [address] active 9 COAGULATION DEFECT, UNSPECIFIED [address] active 10 DYSPHAGIA, OROPHARYNGEAL PHASE [address] active 11 ENCOUNTER FOR ATTENTION TO GASTROSTOMY [address] active 12 GASTRO-ESOPHAGEAL REFLUX DISEASE WITHOUT ESOPHAGITIS [address] active 13 HEMIPLEGIA AND HEMIPARESIS FOLLOWING CEREBRAL INFARCTION AFFECTING RIGHT DOMINANT SIDE [address] active 14 HYPERLIPIDEMIA, UNSPECIFIED [address] active 15 MALIGNANT NEOPLASM OF LARYNX, UNSPECIFIED [address] active 16 MUSCLE WEAKNESS (GENERALIZED) [address] active 17 NICOTINE DEPENDENCE, CIGARETTES, UNCOMPLICATED [address] active 18 OTHER ABNORMALITIES OF GAIT AND MOBILITY 4 09/17/[address] completed 19 OTHER LACK OF COORDINATION [address] active 20 TOBACCO USE 4 Z72.0 ICD-10-CM active 21 TRANSIENT CEREBRAL ISCHEMIC ATTACK, UNSPECIFIED [address] active 22 UNSPECIFIED SEVERE PROTEIN-CALORIE MALNUTRITION [address] active 23 UNSTEADINESS ON FEET [address] active 24 WEDGE COMPRESSION FRACTURE OF THIRD LUMBAR VERTEBRA, SUBSEQUENT ENCOUNTER FOR FRACTURE WITH ROUTINE HEALING [address] active Reason for Referral No Reasons for Referral Entered Social History Social History Observation Description Start Date End Date Code Code System Current Smoking Status Tobacco smoking consumption unknown 851875988 SNOMED CT Sex Assigned At Female 1960 07690-2 [facility] Vital Signs Code Code System Vitals Name Values and Units Timing Information 35193-6 [facility] Pain Level Value=0.0 12/02/2024 00142-0 [facility] Weight Value=72.0 Units=Lbs 11/12 9279-1 [facility] Respiratory Rate Value=16.0 Units=/m in 11/18/2024 8462-4 [facility] Blood Pressure-Diastolic Value=68 Un its=mmHg 11/18/2024 8480-6 [facility] Blood Pressure-Systolic Mzxpg=844 Un its=mmHg 11/18/2024 8310-5 [facility] Body Temperature Value=97.8 Units=?? F 11/18/2024 8867-4 [facility] Heart rate Value=66.0 Units=/min 02/2025 24299-4 [facility] O2 % BldC Oximetry Value=92.0 Units= % 11/18/2024 8302-2 [facility] Height Value=61.0 Units=Inches 05/31/2024
== END 2024-12-04 15:21 | disposition home or self-care (01) ==
LOC: HO.HMCH 14:29
PROVIDERS: PCP Internal Medicine; Visit Provider Internal Medicine
DX: J44.9 Chronic obstructive pulmonary disease, unspecified (principal); I69.351 Hemiplegia and hemiparesis following cerebral infarction affecting right dominant side; I63.40 Cerebral infarction due to embolism of unspecified cerebral artery; G40.909 Epilepsy, unspecified, not intractable, without status epilepticus; E78.00 Pure hypercholesterolemia, unspecified; K21.9 Gastro-esophageal reflux disease without esophagitis; G25.81 Restless legs syndrome; D50.8 Other iron deficiency anemias; E55.9 Vitamin D deficiency, unspecified; K59.00 Constipation, unspecified; F39 Unspecified mood [affective] disorder; R32 Unspecified urinary incontinence

== ENCOUNTER → 2024-12-04 14:28 | Outpatient (BNVA) | payer OTHER, SELFPAY | PROVIDERS: PCP Internal Medicine; Visit Provider Internal Medicine | DX: I69.351 Hemiplegia and hemiparesis following cerebral infarction affecting right dominant side (principal); G40.909 Epilepsy, unspecified, not intractable, without status epilepticus; E78.00 Pure hypercholesterolemia, unspecified; J44.9 Chronic obstructive pulmonary disease, unspecified; K21.9 Gastro-esophageal reflux disease without esophagitis; G25.81 Restless legs syndrome; D50.8 Other iron deficiency anemias; E55.9 Vitamin D deficiency, unspecified; Z79.01 Long term (current) use of anticoagulants; Z79.899 Other long term (current) drug therapy | CPT/HCPCS: 96127; 99202 ==

== ENCOUNTER 2024-12-30 10:09 | Outpatient (REF) | payer MEDICAID, SELFPAY ==
[2024-12-30 10:39] LABS: Hematocrit 41.7 % (37.0-47.0); Hemoglobin 12.5 g/dl (12.0-16.0); Mean Corpuscular Hemoglobin 25.7 pg (27.0-33.0); Mean Corpuscular Volume 85.8 fL (80.0-98.0); Mean Platelet Volume 9.1 fL (9.4-12.3); Platelet Count 208 X10*3/uL (160-400); Red Blood Count 4.86 X10*6/uL (4.20-5.50); Red Cell Distribution Width 17.6 % (11.0-16.0); White Blood Count 4.7 X10*3/uL (4.8-10.8)
[2024-12-30 10:43] LABS: Prothrombin Time 85.2 SEC (10.9-12.4)
--- OUTSIDE RECORDS SUMMARY | 2024-12-30 10:43 | XMS_ITS | Clinical Summary ---
Author Organization [facility] Address [address] [place] [address] Care Team Providers Care Kaiwhakahaere Name Role Phone Jennifer Flores MD Primary Care Provider [phone] Allergies Active Allergy Reactions Criticality Noted Date [...] Years Used Date Smoking Tobacco: Never Assessed [facility] Utilities Answer Date Recorded In the past 12 months has th e [employer], gas, oil, or water company threatened to [...] place to sleep or slept in a snf (including now)? No 10/26/2023 Comments Unknown Sex [...] - Risk 60-74 years 1-dose series) 2022 COVID-19 Vaccine (1 - 2023-2 5 season) 2024 Influenza Vaccine 03/14/2025 Hepatitis B Vaccines Aged Out No long er eligible based on patient's age to complete this topic Insurance MEDICAID OUT OF STATE [facility] Advance Directives * Full Code (Latest Code Status on File) Date Activated Date Inactivated Comments 10/25/2023 12:42 AM Care Teams Kaiwhakahaere Relationship Specialty Start Date End Date Jennifer Flores MD [address] [place] [id number] PCP - General Internal Medicine 10/26/23
--- OUTSIDE RECORDS SUMMARY | 2024-12-30 10:43 | XMS_ITS | Data Portability ---
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 Procedures Surgical History Date Name Laterality Status Provider Name and Address Organization Details Recorded Time 01/18/2024 FOL_DP completed МАРИНА TIJERINA MD [address] [place] [address], [place], [phone], [facility] 01/18/2024 14:22:46 Imaging Results None recorded. Procedure Notes None recorded. Medical Equipment None Reported. Allergies Allergen ID Allergen Name Allergen Category Reaction Reaction Severity Criticality Documentation Date Start Date Code Code System Note Provider Name and Address Organization Details Recorded Time 578000 aspirin medicatio n Not available Not available Not available 01/18/2024 1191 RxNorm Becka ruiz [facility] 14:01:27 [id number] lobster allergeni c extract food Not available Not available Not available 01/18/2024 35548 1 RxNorm Becka ruiz [facility] 14:01:39 Medications Name Sig Start Date Stop [...] Available Not Available No t Available cholecalcif ahi (vitamin D3) 1,250 mcg (50,000 unit) capsule [...] Updated DateTime 01/18/2024 154.94 cm 13.2 kg/m2 76460.47 g Becka Sanchez [place] [facility] 01/18/2024 13:59:20 Social History Question Answer Notes LastModified by Organizat ion Details LastModified Time Tobacco Smoking Status Current Every Day Smoker МАРИНА TIJERINA MD [address] [place] [address], [phone], [place] - [facility] 01/18/2024 14:06:41 How Much Tobacco Do You [...] Note 3055 МАРИНА TIJERINA MD [facility] [address] [address] 01/18/2024 13:07:48 01/18/2024 14:25:55 Malignant tumor of supraglottis 689952340 C32.1 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 Soraida Arroyo [id number] Soraida Arroyo Notes Date Note Type Note Provider Name and Address Organization Details Recorded Time 01/18/2024 text/html Malignant neopla sm of supraglottis [id number] by Dr Salomón Chen 10/24/23-10/28/23 Admitted to [facility] - transfer from [place].10/24/2023 CT neck with contrast at [facility] shows enhancing ulcerated nodular mucosal mass [...] squamous cell carcinoma p16 negative10/25/23 ENT at [facility] exam - results not available 11/27/2023 PET/CT at [facility] shows left epiglottis uptake extends from the midline to level of vocal cords. Level 2 lymph nodes measuring 18 mm and 15 mm on the left side. 1 cm spiculated nodule right upper lobe.12/14/[address] More12/19/2023 medical onc[address] consult with Dr. Lorenzana12/26/2023 swallow therapy Aleah TIJERINA MD [address] [place] [address], [phone], [facility] - [facility] 01/18/2024 14:24:27 OBGyn Episode No OBEpisode recorded.
[2024-12-30 10:54] LABS: INTERNATIONAL NORM RATIO 7.4 (0.9-1.1)
== END 2024-12-30 10:10 | disposition home or self-care (01) ==
LOC: HO.LAB 10:09
PROVIDERS: Visit Provider Internal Medicine Medical Oncology
DX: Z79.01 Long term (current) use of anticoagulants (principal)
CPT/HCPCS: 36415; 85027; 85610; 99202

== ENCOUNTER 2024-12-30 10:18 | Outpatient (AMB) | payer OTHER, SELFPAY ==
--- NOTE | 2024-12-30 10:37 | MHC.OFFVISCO ---
Intake Intake Visit Reasons: Anticoagulation Silver Plater Required: No Allergies aspirin Adverse Reaction (Mild, Verified 12/04/24 15:00) Vomiting Medication List - Last Reconciled 12/30/24 by Jen Pena RN acetaminophen 650 mg PO Q6H PRN [ADULT BRIEFS (small) As directed] albuterol sulfate 2.5 mg (6 mL) inhalation Q4-6H PRN 30 days amitriptyline 10 mg PO BEDTIME ascorbic acid (vitamin C) (Vitamin C) 500 mg PO DAILY atorvastatin 80 mg PO BEDTIME cholecalciferol (vitamin D3) (Vitamin D3) 1,000 units PO DAILY docusate sodium 100 mg PO BID PRN ferrous sulfate 325 mg PO DAILY food supplemt, lactose-reduced (Ensure Plus) 1 ea PO TIDWMEAL 30 days levetiracetam 500 mg PO BID menthol 5% (Icy Hot (menthol)) 1 patch topical BID ondansetron HCl 4 mg PO Q8H PRN pantoprazole 40 mg PO DAILY PRN pramipexole 0.125 mg PO BEDTIME PRN ropinirole 2 mg PO BEDTIME ropinirole 2 mg PO BEDTIME sertraline 25 mg PO DAILY Symbicort 160-4.5 mcg/actuation (budesonide-formoterol) 2 puffs PO BID NS Ventolin HFA 90 mcg/actuation (albuterol sulfate) 2 puffs inhalation QID PRN NS warfarin 5 mg PO DAILY Is last menstrual period known: No Post menopausal: Yes Patient : No (2 sons living ) Nursing Note Pt came with [employer] via wheelchair to [facility] for [facility] visit- pt at first upset about coming but after appt seems willing to try to come to [facility] with her transportation service, Educated completed with pt and her [employer], education folder given with instruction with good verbal understanding, Pt receives 1 meal/day from meals on wheels, snacks on chips and cookies during the day, doesn't eat fruits, likes broccoli and spinach( will enc she eat at least 1-2 servings of greens /week) She states she has been waiting for ensure to be delivered since she's been d/c from rehab- will adjust dose when she starts drinking it- explained it has vit k in it like a serving of greens. t/c to nurse [place] with pt status to verify medications that she sets up. 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, still smokes 1/2 ppd, she states she is weak from all the strokes she has able to furniture surf around her home, states walker to heavy and big for her mobile home, Medications or supplements: reviewed - not taking vit c, iron or D3 - states she has to pay out of pocket for them, will ask PCP for RX to see if Insurance will cover them for her Diet: 1 meal / day plus snacks, only drinks coffee and pepsi - likes spinach and broccoli Denies any signs and symptoms of bleeding or clotting or unusual bruising - explained her INR is critical and she is at risk of bleeding - to go to the ER for any falls where she hits her head or any unusual bleeding or bruising after applying cold compresses to area, Bleeding, bruising, clotting discussed Nutritional guidance given: eat greens today if able Dose: already took today's dose will hold warfarin Mon and recheck Monday ( will try to make arrangements for INR mon) F/U INR Date : 01/10/2025 ?? Patient, [employer] AND HER MED NURSE TANYA verbalize understanding of instructions given. This msg will be sent to PCP with f/u call Anti-Coag Initial Assessment Social Hx Patient Tobacco Use Status: Current everyday Tobacco user Tobacco use type: Cigarette Smoking packs per day: 0.5 alcohol intake: former Alcohol intake frequency: does not drink Housing: House (mobile home) current occupation: disabled current occupational exposures/hazards: No Fall risk assessment: 1 Fall in past year (right arm - fall at rehab ) Cardiovascular Hx: HTN (not current ) and Other (pt states she has a whole in her heart ) Lung Disease HX: COPD and DVT/PE (several clots in LEGS BILAT) Musculoskeletal Hx: Arthritis (ALL OVER ) and Other (FIBROMYALGIA ) Blood Disorder Hx: Anemia and Hyperlipidemia GI Hx: Ulcers and Hemorrhoids Neurological Hx: Epilepsy/Seizures (OCTOBER 2024 - NEWLY DIAGNOSED ), Stroke/TIA (MULTIPLE - RESIDUAL WEAKNESS ) and Migraines/Headaches (FEW A WEEK - Takes tylenol- migraines since 14 years old) 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 Illness/Depression: Yes Is last menstrual period known: No Post menopausal: Yes Patient : No (2 sons living ) Surgeries: right arm fracture repair 10/2023 left blocked carotid artery - surgery date not determined left leg fracture s/p falling 2011 last fracture r/t falling on ice snow- with multiple surgeries Tubes in ears as child, Appendectomy 1981 Tubal ligation Age 26 Anti-Coag. Education Record Teaching Recipient: Patient and Significant Other ([employer] WAS ABLE TO ATTEND ) What is the easiest way to learn: Reading, Listening, Picture, Demonstration and Education Packet Barriers to Learning Identified: Cognitive and Emotional List any additional concerns (family/financial etc.): pt is unaware of her medications - has VNA nurse for med management - has had multiple CVAs Significant other who can be involved in Teaching Process when Indicated: [employer] If Barriers are identified, describe method to overcome: compliance with care and health Silver Plater Required: No Readiness To Learn: Fair Teaching Methods: Demonstration, Discussion, Handout and Teach Back Response to Teaching: Reinforcement Needed and Verbalize Understanding Re-Education needs: Reinforce Content Education Intervention/Brief Description of Teaching 1. Able to state reason for taking Warfarin: Yes 2. Able to state Pain Management techniques: Yes 3. Able to state action of Warfarin.: Yes Able to state current dose, pill color, how and when Warfarin to be taken: Yes Able to identify signs of bleeding &/or clotting: Yes 4. Able to identify need to keep diet consistent in regard to vitamin K intake: Yes Able to state restriction on alcohol: Yes 5. Able to state need for compliance with PT/INR testing: Yes Describes rationale for carrying ID and wearing Medic Alert bracelet: Yes Patient instructed to monitor for excess bruising or signs/symptoms of clotting or bleeding: Yes 6. Able to state that there are drugs that interact with Warfin: Yes 7. Able to state the need to seek medical attention when illness/injury occur.: Yes Describes the need to avoid activities with high risk of injury: Yes 8. Able to state duration of treatment: Yes 9. Demonstrates understanding of notifying all providers of pending dental surgical, or other invasive procedures: Yes 10. Able to state Home Care instructions Questionnaires HAS-BLED Does the patient had uncontrolled Hypertension?: No Does the patient have renal disease?: No Does the patient have liver disease?: No Does the patient have a history of stroke?: Yes (multiple) Has the patient had major bleeding or predisposition to bleeding?: Yes Does the patient have labile INRs?: Yes Is the patient over 65 years of age?: No Is the patient on medications that gives them a predisposition to bleeding?: Yes Does the patient use alcohol?: No HAS-BLED Score: 4 CHADSVASC Age: <65 Gender: Female Does the patient have a history of CHF?: No Does the patient have a history of Hypertension?: Yes Does the patient have a history of Stroke/TIA/Thromboembolism?: Yes Does the patient have a history of Vascular Disease (prior VT, PAD or aortic plaque)?: Yes (PVD, PAD - long hx of smoking) Does the patient have a history of Diabetes?: No CHADS VACS Score: 5 Dami Prediction Score Rsk VTE Active Cancer: No Previous VTE, excluding superficial vein thrombosis: Yes Reduced mobility: Yes 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 Comment complex new pt with critical result Assessment & Plan Assessment & Plan (1) Current use of anticoagulant therapy: Code(s): Z79.01 - intermediate frame tender (current) use of anticoagulants Category: Medical Orders: Orders Prothrombin Time INR Today Harrison Schaefer MD (AC) Z79.01 - USP (current) use of anticoagulants Complete Blood Count no Diff Today Harrison Schaefer MD (AC) Z79.01 - intermediate frame tender (current) use of anticoagulants Medications: Changed From docusate sodium 100 mg PO BID 30 days 60 caps 0RF To docusate sodium 100 mg PO BID PRN VASILE Issa
[2024-12-30 11:37] LABS: ~PT, ~INR - Anti Coag Clinic 6.9 (0.9-1.1)
== END 2024-12-30 13:05 | disposition home or self-care (01) ==
LOC: HO.ACS 10:18
PROVIDERS: PCP Internal Medicine; Visit Provider Internal Medicine Medical Oncology
DX: Z79.01 Long term (current) use of anticoagulants (principal)

== ENCOUNTER → 2025-01-03 10:09 | Outpatient (BNVA) | payer MEDICAID, SELFPAY | PROVIDERS: PCP Internal Medicine; Visit Provider Internal Medicine Medical Oncology ==

== ENCOUNTER 2025-01-10 10:24 | Outpatient (AMB) | payer MEDICAID, SELFPAY ==
[2025-01-10 10:50] LABS: Prothrombin Time Whole Bld POC 29.7 sec (11.1-13.5); ~PT, ~INR - Anti Coag Clinic 2.5 (0.9-1.1)
--- OUTSIDE RECORDS SUMMARY | 2025-01-10 11:04 | XMS_ITS | Clinical Summary ---
Author Organization Unknown Care Team Providers Care Pediatric Registered Nurse Name Role Phone JUANA MENDOZA, GARY Unavailable Unavailable KAITLYN JIMENEZ, ASHLEIGH Unavailable Unavailable Payers Payer Name Policy Type Policy Number Effective Date Expira tion Date [facility] [id number] MEDICAID [id number] [id number] Problems Condition Name Condition Details Condition Category Status Onset Date Resolution Date Last Treatment Date Treating Clinician Comments ADJUSTMENT DISORDER WITH MIXED ANXIETY AND DEPRESSED MOOD Active 1-14 00:00: 00 HYPERLIPIDEM IA, UNSPECIFIED Active 11-20 00:00: 00 MUSCLE WEAKNESS (GENERALIZED ) Active 11-20 00:00: 00 OTHER PULMONARY ASPERGILLOSI S Active 11-20 00:00: 00 CHRONIC OBSTRUCTIVE PULMONARY DISEASE, UNSPECIFIED Active 11-20 00:00: 00 TRANSIENT CEREBRAL ISCHEMIC ATTACK, UNSPECIFIED Active 11-20 00:00: 00 HEMIPLGA FOLLOWING CEREBRAL INFRC AFF RIGHT DOMINANT SIDE Active 11-20 00:00: 00 GASTRO-ESOPH AGEAL REFLUX DISEASE WITHOUT ESOPHAGITIS Active 11-20 00:00: 00 MALIGNANT NEOPLASM OF LARYNX, UNSPECIFIED Active 12-15 00:00: 00 DYSARTHRIA FOLLOWING CEREBRAL INFARCTION Active 12-16 00:00: 00 RHEUMATOLOGIST (CURRENT) USE OF ANTICOAGULAN TS Active 12-16 00:00: 00 HISTORY OF FALLING Active 12-16 00:00: 00 ADULT FAILURE TO THRIVE Active 12-16 00:00: 00 NICOTINE DEPENDENCE, CIGARETTES, UNCOMPLICATE D Active 12-16 00:00: 00 RESTLESS LEGS SYNDROME Active 12-16 00:00: 00 ANXIETY DISORDER, UNSPECIFIED Active 12-16 00:00: 00 DEPRESSION, UNSPECIFIED Active 12-16 00:00: 00 PERSONAL HISTORY OF OTHER VENOUS THROMBOSIS AND EMBOLISM Active 12-16 00:00: 00 EPILEPSY, UNSP, NOT INTRACTABLE, WITHOUT STATUS EPILEPTICUS Active 12-16 00:00: 00 Allergies, Adverse Reactions, Alerts Allergy Name Allergy Type Status Severity Reaction(s) Onset Date Inactive Date Treating Clinician Comments ASA Propensity to adverse reactions Active 2024-11 13:31:3 7 LOBSTERS Propensity to adverse reactions Active 2024-11 13:31:4 9 Medications Ordered Medication Name Filled Medication Name Start Date Stop Date Current Medication? Ordering Clinician Indication Dosage Frequency Signature (SIG) Comments Components acetaminoph en 325 mg tablet 12-07 00:00: 00 Yes [id number] Every 6 hours as needed for pain 2 tablet NEEDED 2 tablet NEEDED (route: oral) Med Classific ation: Analgesic , Anti-infl ammatory or Antipyret ic amitriptyli ne 10 mg tablet 12-07 00:00: 00 Yes [id number] 10 mg BEDTIME 10 mg BEDTIME (route: oral) Med Classific ation: Central Nervous System Agents atorvastati n 80 mg tablet 12-07 00:00: 00 Yes [id number] 80 mg BEDTIME 80 mg BEDTIME (route: oral) Med Classific ation: Cardiovas cular Therapy Agents docusate sodium 100 mg capsule 12-07 00:00: 00 Yes [id number] 100 mg 2 TIMES DAILY 100 mg 2 TIMES DAILY (route: oral) Med Classific ation: Gastroint estinal Therapy Agents ferrous sulfate 325 mg (65 mg iron) tablet 12-07 00:00: 00 Yes [id number] 325 mg DAILY 325 mg DAILY (route: oral) Med Classific ation: Electroly te Balance-N utritiona l Products Keppra 500 mg tablet 12-07 00:00: 00 Yes [id number] 500 mg 2 TIMES DAILY 500 mg 2 TIMES DAILY (route: oral) Med Classific ation: Central Nervous System Agents multivitami n with minerals tablet 12-07 00:00: 00 Yes [id number] Per instruc tions DAILY Per instructio ns DAILY (route: oral) Med Classific ation: Electroly te Balance-N utritiona l Products pantoprazol e 40 mg tablet,mary ellen yed release 12-07 00:00: 00 Yes [id number] 40 mg DAILY 40 mg DAILY (route: oral) Med Classific ation: Gastroint estinal Therapy Agents pramipexole 0.125 mg tablet 12-07 00:00: 00 Yes [id number] 0.125 mg NEEDED 0.125 mg NEEDED (route: oral) Med Classific ation: Central Nervous System Agents ropinirole 1 mg tablet 12-07 00:00: 00 Yes [id number] 1 mg BEDTIME 1 mg BEDTIME (route: oral) Med Classific ation: Central Nervous System Agents sertraline 25 mg tablet 12-07 00:00: 00 Yes [id number] 25 mg DAILY 25 mg DAILY (route: oral) Med Classific ation: Central Nervous System Agents Symbicort 160 mcg-4.5 mcg/actuati on HFA aerosol inhaler 12-07 00:00: 00 Yes [id number] Per instruc tions 2 TIMES DAILY Per instructio ns 2 TIMES DAILY (route: inhalation ) Med Classific ation: Respirato ry Therapy Agents warfarin 2 mg tablet 12-07 00:00: 00 Yes [id number] 2 mg DAILY 2 mg MIKAYLA Y (route: oral) Med Classific ation: Hematolog ical Agents Vital Signs Vital Name Observation Time Observation Value Commen ts Temperature 2025-01-08 12:15:00.000 96.8 [degF] Temperature 2025-01-07 12:40:00.000 97.3 [degF] Temperature 2025-01-03 10:30:00.000 97.2 [degF] Temperature 2025-01-01 14:58:00.000 97.3 [degF] Temperature 2024-12-30 15:49:00.000 97.2 [degF] Temperature 2024-12-27 13:00:00.000 96.8 [degF] Temperature 2024-12-25 13:00:00.000 97.2 [degF] Temperature 2024-12-23 13:50:00.000 97.3 [degF] Temperature 2024-12-19 13:30:00.000 97.3 [degF] Temperature 2024-12-08 13:29:00.000 97.2 [degF] BMI (%) 2024-12-08 12:58:12.000 13 kg/m2 Height 2024-12-08 12:58:00.000 61 [in_us] Pulse 2025-01-08 12:15:00.000 82 /min Pulse 2025-01-07 12:40:00.000 88 /min Pulse 2025-01-03 10:30:00.000 80 /min Pulse 2025-01-01 14:58:00.000 72 /min Pulse 2024-12-30 15:49:00.000 70 /min Pulse 2024-12-27 13:00:00.000 72 /min Pulse 2024-12-25 13:00:00.000 80 /min Pulse 2024-12-23 13:50:00.000 76 /min Pulse 2024-12-19 13:30:00.000 80 /min Pulse 2024-12-08 13:29:00.000 76 /min O2 Saturation (%) 2025-01-08 12:15:00.000 96 % O2 Saturation (%) 2025-01-07 12:40:00.000 98 % O2 Saturation (%) 2025-01-03 10:30:00.000 97 % O2 Saturation (%) 2025-01-01 14:59:00.000 98 % O2 Saturation (%) 2024-12-27 13:00:00.000 98 % O2 Saturation (%) 2024-12-25 13:00:00.000 94 % O2 Saturation (%) 2024-12-23 13:50:00.000 99 % O2 Saturation (%) 2024-12-19 13:30:00.000 95 % O2 Saturation (%) 2024-12-08 13:30:00.000 98 % Respirations 2025-01-08 12:15:00.000 16 /min Respirations 2025-01-07 12:40:00.000 16 /min Respirations 2025-01-03 10:30:00.000 16 /min Respirations 2025-01-01 14:58:00.000 16 /min Respirations 2024-12-30 15:49:00.000 16 /min Respirations 2024-12-27 13:00:00.000 16 /min Respirations 2024-12-25 13:00:00.000 16 /min Respirations 2024-12-23 13:50:00.000 16 /min Respirations 2024-12-19 13:30:00.000 16 /min Respirations 2024-12-08 13:29:00.000 20 /min Weight (lbs) 2024-12-08 12:58:12.000 70 [lb_av] Systolic Blood Pressure 2025-01-08 12:15:00.000 132 mm [Hg] Systolic Blood Pressure 2025-01-07 12:40:00.000 136 mm [Hg] Systolic Blood Pressure 2025-01-03 10:30:00.000 138 mm [Hg] Systolic Blood Pressure 2025-01-01 14:58:00.000 140 mm [Hg] Systolic Blood Pressure 2024-12-30 15:49:00.000 134 mm [Hg] Systolic Blood Pressure 2024-12-27 13:00:00.000 128 mm [Hg] Systolic Blood Pressure 2024-12-25 13:00:00.000 142 mm [Hg] Systolic Blood Pressure 2024-12-23 13:50:00.000 144 mm [Hg] Systolic Blood Pressure 2024-12-19 13:30:00.000 128 mm [Hg] Systolic Blood Pressure 2024-12-08 13:29:00.000 151 mm [Hg] Diastolic Blood Pressure 2025-01-08 12:15:00.000 70 mm [Hg] Diastolic Blood Pressure 2025-01-07 12:40:00.000 80 mm [Hg] Diastolic Blood Pressure 2025-01-03 10:30:00.000 80 mm [Hg] Diastolic Blood Pressure 2025-01-01 14:58:00.000 80 mm [Hg] Diastolic Blood Pressure 2024-12-30 15:49:00.000 84 mm [Hg] Diastolic Blood Pressure 2024-12-27 13:00:00.000 70 mm [Hg] Diastolic Blood Pressure 2024-12-25 13:00:00.000 80 mm [Hg] Diastolic Blood Pressure 2024-12-23 13:50:00.000 86 mm [Hg] Diastolic Blood Pressure 2024-12-19 13:30:00.000 74 mm [Hg] Diastolic Blood Pressure 2024-12-08 13:29:00.000 88 mm [Hg] Plan of Treatment Planned Activity Planned Date Details Comments Future Scheduled Test SKILLED NU RSE TO EVALUATE PATIENT, IDENTIFY PRIMARY AND CO-MORBID CONDITIONS CODED PER CODING GUIDELINES, AND DEVELOP PATIENT SPECIFIC PLAN OF CARE THAT INCLUDES PATIENT GOAL FOR HOME HEALTH. [code = SKILLED NURSE TO EVALUATE PATIENT, IDENTIFY PRIMARY AND CO-MORBID CONDITIONS CODED PER CODING GUIDELINES, AND DEVELOP PATIENT SPECIFIC PLAN OF CARE THAT INCLUDES PATIENT GOAL FOR HOME HEALTH.] Future Scheduled Test SKILLED NU RSE TO O/A OF PATIENTS MENTAL/BEHAVIORAL STATUS, ASSESS VITAL SIGNS 3 X WEEK, ALLOW 2 PRNS FOR MEDICATION MANAGEMENT. [code = SKILLED NURSE TO O/A OF PATIENTS MENTAL/BEHAVIORAL STATUS, ASSESS VITAL SIGNS 3 X WEEK, ALLOW 2 PRNS FOR MEDICATION MANAGEMENT.] Future Scheduled Test SKILLED NU RSE WILL MAINTAIN SITUATIONAL AWARENESS FOR SAFETY AND WILL NOTIFY CLINICAL CRUSHER FEEDER AND PHYSICIAN/PROVIDER WITH ANY CHANGE IN CONDITION. [code = SKILLED NURSE WILL MAINTAIN SITUATIONAL AWARENESS FOR SAFETY AND WILL NOTIFY CLINICAL CRUSHER FEEDER AND PHYSICIAN/PROVIDER WITH ANY CHANGE IN CONDITION.] Future Scheduled Test SKILLED NU RSE TO REVIEW PATIENT MEDICATIONS. INSTRUCT PATIENT/CAREGIVER ON MONITORING OF EFFECTIVENESS, ADVERSE DRUG REACTIONS, SIDE EFFECTS OF ALL MEDICATIONS (PRESCRIPTION/-OTC), AND HOW AND WHEN TO REPORT PROBLEMS. [code = SKILLED NURSE TO REVIEW PATIENT MEDICATIONS. INSTRUCT PATIENT/CAREGIVER ON MONITORING OF EFFECTIVENESS, ADVERSE DRUG REACTIONS, SIDE EFFECTS OF ALL MEDICATIONS (PRESCRIPTION/-OTC), AND HOW AND WHEN TO REPORT PROBLEMS.] Future Scheduled Test PATIENT MA Y HAVE ONE SET OF EMERGENCY MEDICATION NOT TO BE PRE-POURED ANY SOONER THAN 24 HOURS BEFORE SEVERE INCLEMENT WEATHER OR EMERGENT EVENT AND FOLLOWING SKILLED NURSE EVALUATION OF PATIENT SAFETY. [code = PATIENT MAY HAVE ONE SET OF EMERGENCY MEDICATION NOT TO BE PRE-POURED ANY SOONER THAN 24 HOURS BEFORE SEVERE INCLEMENT WEATHER OR EMERGENT EVENT AND FOLLOWING SKILLED NURSE EVALUATION OF PATIENT SAFETY.] Future Scheduled Test SKILLED NU RSE FOR O/A AND SKILLED TEACHING RELATED TO MANAGEMENT OF DEPRESSIVE SYMPTOMS AND/OR DEPRESSION. SN TO REPORT SIGNIFICANT CHANGE IN DEPRESSIVE SYMPTOMS TO CLINICAL PROVIDER FOR EARLY INTERVENTION. [code = SKILLED NURSE FOR O/A AND SKILLED TEACHING RELATED TO MANAGEMENT OF DEPRESSIVE SYMPTOMS AND/OR DEPRESSION. SN TO REPORT SIGNIFICANT CHANGE IN DEPRESSIVE SYMPTOMS TO CLINICAL PROVIDER FOR EARLY INTERVENTION.] Future Scheduled Test SKILLED NU RSE FOR O/A AND SKILLED TEACHING OF COPING SKILLS TO MANAGE ANXIETY AND MAINTAIN SAFETY. [code = SKILLED NURSE FOR O/A AND SKILLED TEACHING OF COPING SKILLS TO MANAGE ANXIETY AND MAINTAIN SAFETY.] Future Scheduled Test SKILLED NU RSE TO ASSESS PATIENTS PSYCHOSOCIAL STATUS TO IDENTIFY POTENTIAL ISSUES THAT MAY COMPLICATE THE PROVISION OF THE PLAN OF CARE INCLUDING THE PATIENTS ABILITY TO ACCESS COMMUNITY RESOURCES AND PSYCHOSOCIAL SUPPORT SERVICES. [code = SKILLED NURSE TO ASSESS PATIENTS PSYCHOSOCIAL STATUS TO IDENTIFY POTENTIAL ISSUES THAT MAY COMPLICATE THE PROVISION OF THE PLAN OF CARE INCLUDING THE PATIENTS ABILITY TO ACCESS COMMUNITY RESOURCES AND PSYCHOSOCIAL SUPPORT SERVICES.] Future Scheduled Test SKILLED NU RSE FOR O/A OF CLIENT'S CURRENT DEGREE OF HOPELESSNESS AND PROVIDE THERAPEUTIC INTERVENTIONS AND TEACHING DESIGNED TO ENHANCE THE CLIENT'S WELL BEING. [code = SKILLED NURSE FOR O/A OF CLIENT'S CURRENT DEGREE OF HOPELESSNESS AND PROVIDE THERAPEUTIC INTERVENTIONS AND TEACHING DESIGNED TO ENHANCE THE CLIENT'S WELL BEING.] Goal Patient Goal - P AIN MANAGEMENT AND BEING ABLE TO PLAY ON MY IPAD Goal Provider Goal - A PLAN OF CARE WILL BE ESTABLISHED THAT MEETS PATIENT'S INTERMEDIATE NEEDS AND INCLUDES PATIENT GOAL FOR HOME HEALTH. Goal Provider Goal - ALTERED MENTAL/BEHAVIORAL STATUS WILL BE IDENTIFIED PROMPTLY AND INTERVENTION INITIATED QUICKLY TO MINIMIZE ASSOCIATED RISKS THROUGHOUT CERTIFICATION PERIOD. Goal Provider Goal - PATIENT WILL REMAIN SAFE IN THE COMMUNITY AND WILL BE FREE OF DANGER TO SELF AND OTHERS THROUGHOUT THE CERTIFICATION PERIOD. Goal Provider Goal - PATIENT/CAREGIVER WILL VERBALIZE UNDERSTANDING OF EDUCATION PROVIDED ON MEDICATIONS BY THE END OF THE CERTIFICATION PERIOD. Goal Provider Goal - MEDICATION WILL BE AVAILABLE DURING INCLEMENT WEATHER OR EMERGENT EVENT THROUGHOUT CERTIFICATION PERIOD. Goal Provider Goal - PATIENT WILL REMAIN SAFE WITHOUT DECOMPENSATION IN DEPRESSIVE CONDITION, WHILE MAINTAINING OPTIMAL LEVEL OF MENTAL HEALTH AND WELL BEING THROUGHOUT CERTIFICATION PERIOD. Goal Provider Goal - PATIENT WILL BE ABLE TO PERFORM DAILY FUNCTIONS AND HAVE OPTIMAL IMPROVEMENT IN LEVEL OF ANXIETY THROUGHOUT CERTIFICATION PERIOD. Goal Provider Goal - PSYCHOSOCIAL NEEDS WILL BE IDENTIFIED AND PLAN IMPLEMENTED TO MINIMIZE RISK THROUGHOUT CERTIFICATION PERIOD. Goal Provider Goal - PATIENT WILL VERBALIZE OWN ASSOCIATION OF FEELINGS OF HOPELESSNESS, AND 3 THERAPEUTIC TECHNIQUES TO DECREASE THESE FEELINGS BY THE END OF THIS CERTIFICATION. Encounters Start Date/Time End Date/Time Encounter Type Admission Type Attending Clinicians Care Facility Care Department Encounter ID Discharge Date Discharge Status Discharge Condition Discharge Reason Percent Goals Met 2024-12-08 00:00:00 2025-02-05 00:00:00 Outpatient NEW ADMISSION ASHLEIGH SAHNI [facility] [id number] 13.04
--- NOTE | 2025-01-10 11:06 | MHC.OFFVISCO ---
Intake Intake Visit Reasons: Anticoagulation Allergies aspirin Adverse Reaction (Mild, Verified 01/10/25 10:44) Vomiting Medication List - Last Reconciled 01/10/25 by Dulce Jackson RN acetaminophen 650 mg (2 x 325 mg) PO TID PRN 30 days [ADULT BRIEFS (small) As directed] albuterol sulfate 2.5 mg (6 mL) inhalation Q4-6H PRN 30 days amitriptyline 10 mg PO BEDTIME 30 days ascorbic acid (vitamin C) (Vitamin C) 500 mg PO DAILY atorvastatin 80 mg PO BEDTIME cholecalciferol (vitamin D3) (Vitamin D3) 1,000 units PO DAILY 90 days docusate sodium 100 mg PO BID PRN ferrous sulfate 325 mg PO DAILY 90 days food supplemt, lactose-reduced (Ensure Plus) 1 ea PO TIDWMEAL 30 days levetiracetam 500 mg PO BID 30 days menthol 5% (Icy Hot (menthol)) 1 patch topical BID ondansetron HCl 4 mg PO Q8H PRN pantoprazole 40 mg PO DAILY PRN 90 days pramipexole 0.125 mg PO BEDTIME PRN 30 days ropinirole 2 mg (2 x 1 mg) PO BEDTIME 30 days ropinirole 2 mg PO BEDTIME sertraline 25 mg PO DAILY 90 days Symbicort 160-4.5 mcg/actuation (budesonide-formoterol) 2 puffs PO BID NS Ventolin HFA 90 mcg/actuation (albuterol sulfate) 2 puffs inhalation QID PRN NS warfarin 5 mg See Protocol PO DAILY Nursing Note Pt to acs accompanied by grocery clerk stocking. INR: 2.5 in therapeutic range of 2-3 Medications and supplements reviewed No changes in health, diet, medications, or supplements, Denies any signs and symptoms of bleeding or bruising or clotting. Bleeding, bruising, clotting discussed Nutritional guidance given Dose: 2.5mg X 6 days and none on [address] Conrad messaged to order a smaller dose of 2.5mg tablet F/U INR: 1 week Patient verbalizes understanding of instructions given Pt's nurse Bernarda called and dosing given to her with next retest date. Anti-Coag Initial Assessment Social Hx Patient Tobacco Use Status: Current everyday Tobacco user Tobacco use type: Cigarette Smoking packs per day: 0.5 alcohol intake: former Alcohol intake frequency: does not drink Cardiovascular Hx: HTN (not current ) and Other (pt states she has a whole in her heart ) Lung Disease HX: COPD and DVT/PE (several clots in LEGS BILAT) Musculoskeletal Hx: Arthritis (ALL OVER ) and Other (FIBROMYALGIA ) Blood Disorder Hx: Anemia and Hyperlipidemia GI Hx: Ulcers and Hemorrhoids Neurological Hx: Epilepsy/Seizures (OCTOBER 2024 - NEWLY DIAGNOSED ), Stroke/TIA (MULTIPLE - RESIDUAL WEAKNESS ) and Migraines/Headaches (FEW A WEEK - Takes tylenol- migraines since 14 years old) 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
== END 2025-01-10 12:12 | disposition home or self-care (01) ==
LOC: HO.ACS 10:24
PROVIDERS: PCP Internal Medicine; Visit Provider Internal Medicine Medical Oncology
DX: Z79.01 Long term (current) use of anticoagulants (principal)

== ENCOUNTER → 2025-01-10 10:24 | Outpatient (BNVA) | payer MEDICAID, SELFPAY | PROVIDERS: PCP Internal Medicine; Visit Provider Internal Medicine Medical Oncology | DX: I69.351 Hemiplegia and hemiparesis following cerebral infarction affecting right dominant side (principal); I63.40 Cerebral infarction due to embolism of unspecified cerebral artery; Z79.01 Long term (current) use of anticoagulants; Z51.81 Encounter for therapeutic drug level monitoring | CPT/HCPCS: 85610; 99211 ==

== ENCOUNTER 2025-01-21 10:08 | Outpatient (AMB) | payer MEDICAID, SELFPAY ==
[2025-01-21 10:38] LABS: Prothrombin Time Whole Bld POC 25.2 sec (11.1-13.5); ~PT, ~INR - Anti Coag Clinic 2.1 (0.9-1.1)
--- NOTE | 2025-01-21 10:47 | MHC.OFFVISCO ---
Intake Intake Visit Reasons: Anticoagulation Allergies aspirin Adverse Reaction (Mild, Verified 01/21/25 10:29) Vomiting Medication List - Last Reconciled 01/21/25 by Jen Pena RN acetaminophen 650 mg (2 x 325 mg) PO TID PRN 30 days [ADULT BRIEFS (small) As directed] albuterol sulfate 2.5 mg (6 mL) inhalation Q4-6H PRN 30 days amitriptyline 10 mg PO BEDTIME 30 days ascorbic acid (vitamin C) (Vitamin C) 500 mg PO DAILY atorvastatin 80 mg PO BEDTIME cholecalciferol (vitamin D3) (Vitamin D3) 1,000 units PO DAILY 90 days docusate sodium 100 mg PO BID PRN ferrous sulfate 325 mg PO DAILY 90 days food supplemt, lactose-reduced (Ensure Plus) 1 ea PO TIDWMEAL 30 days levetiracetam 500 mg PO BID 30 days menthol 5% (Icy Hot (menthol)) 1 patch topical BID ondansetron HCl 4 mg PO Q8H PRN pantoprazole 40 mg PO DAILY PRN 90 days pramipexole 0.125 mg PO BEDTIME PRN 30 days ropinirole 2 mg (2 x 1 mg) PO BEDTIME 30 days ropinirole 2 mg PO BEDTIME sertraline 25 mg PO DAILY 90 days Symbicort 160-4.5 mcg/actuation (budesonide-formoterol) 2 puffs PO BID NS Ventolin HFA 90 mcg/actuation (albuterol sulfate) 2 puffs inhalation QID PRN NS warfarin 2.5 mg See Protocol PO DAILY Nursing Note INR: 2.1 in therapeutic range Medications and supplements reviewed No changes in health, diet, medications, or supplements, Denies any signs and symptoms of bleeding or bruising or clotting. Bleeding, bruising, clotting discussed Nutritional guidance given Dose: Now has 2.5mg tablets: 2.5mg x 5 days/ 1.25mg x 2 days F/U INR: 1 week Patient verbalizes understanding of instructions given t/c to [place] jean for 01/31 and 02/07 t/c to nurse Menchaca for med set up Anti-Coag Initial Assessment Social Hx Patient Tobacco Use Status: Current everyday Tobacco user Tobacco use type: Cigarette Smoking packs per day: 0.5 alcohol intake: former Alcohol intake frequency: does not drink Cardiovascular Hx: HTN (not current ) and Other (pt states she has a whole in her heart ) Lung Disease HX: COPD and DVT/PE (several clots in LEGS BILAT) Musculoskeletal Hx: Arthritis (ALL OVER ) and Other (FIBROMYALGIA ) Blood Disorder Hx: Anemia and Hyperlipidemia GI Hx: Ulcers and Hemorrhoids Neurological Hx: Epilepsy/Seizures (OCTOBER 2024 - NEWLY DIAGNOSED ), Stroke/TIA (MULTIPLE - RESIDUAL WEAKNESS ) and Migraines/Headaches (FEW A WEEK - Takes tylenol- migraines since 14 years old) 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 Illness/Depression: Yes Coding Level of Care Code Est Patient Level 2 Diagnoses Current use of anticoagulant therapy Z79.01 Comment call for transportation / call to med nurse for med set Assessment & Plan Assessment & Plan (1) Current use of anticoagulant therapy: Code(s): Z79.01 - long term care pharmacist (current) use of anticoagulants Category: Medical
== END 2025-01-21 10:56 | disposition home or self-care (01) ==
LOC: HO.ACS 10:08
PROVIDERS: PCP Internal Medicine; Visit Provider Internal Medicine Medical Oncology
DX: Z79.01 Long term (current) use of anticoagulants (principal)

== ENCOUNTER → 2025-01-21 10:08 | Outpatient (BNVA) | payer MEDICAID, SELFPAY | PROVIDERS: PCP Internal Medicine; Visit Provider Internal Medicine Medical Oncology | DX: I63.9 Cerebral infarction, unspecified (principal); Z79.01 Long term (current) use of anticoagulants; Z51.81 Encounter for therapeutic drug level monitoring | CPT/HCPCS: 85610; 99212 ==

== ENCOUNTER 2025-01-31 10:14 | Outpatient (AMB) | payer MEDICAID, SELFPAY ==
[2025-01-31 10:32] LABS: Prothrombin Time Whole Bld POC 50.8 sec (11.1-13.5); ~PT, ~INR - Anti Coag Clinic 4.2 (0.9-1.1)
--- NOTE | 2025-01-31 10:49 | MHC.OFFVISCO ---
Intake Intake Visit Reasons: Anticoagulation Allergies aspirin Adverse Reaction (Mild, Verified 01/31/25 10:21) Vomiting Medication List - Last Reconciled 01/31/25 by Jen Pena RN acetaminophen 650 mg (2 x 325 mg) PO TID PRN 30 days [ADULT BRIEFS (small) As directed] albuterol sulfate 2.5 mg (6 mL) inhalation Q4-6H PRN 30 days amitriptyline 10 mg PO BEDTIME 30 days ascorbic acid (vitamin C) (Vitamin C) 500 mg PO DAILY atorvastatin 80 mg PO BEDTIME cholecalciferol (vitamin D3) (Vitamin D3) 1,000 units PO DAILY 90 days docusate sodium 100 mg PO BID PRN ferrous sulfate 325 mg PO DAILY 90 days food supplemt, lactose-reduced (Ensure Plus) 1 ea PO TIDWMEAL 30 days levetiracetam 500 mg PO BID 30 days menthol 5% (Icy Hot (menthol)) 1 patch topical BID ondansetron HCl 4 mg PO Q8H PRN pantoprazole 40 mg PO DAILY PRN 90 days pramipexole 0.125 mg PO BEDTIME PRN 30 days ropinirole 2 mg (2 x 1 mg) PO BEDTIME 30 days ropinirole 2 mg PO BEDTIME sertraline 25 mg PO DAILY 90 days Symbicort 160-4.5 mcg/actuation (budesonide-formoterol) 2 puffs PO BID NS Ventolin HFA 90 mcg/actuation (albuterol sulfate) 2 puffs inhalation QID PRN NS warfarin 2.5 mg See Protocol PO DAILY Nursing Note INR: 4.2 out of therapeutic range Medications and supplements reviewed No changes in health, diet, medications, or supplements, Denies any signs and symptoms of bleeding or bruising or clotting. 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 given t/c to nurse Menchaca for dosing and next appts t/c to [place] for PT1 transportation for 02/05 ,02/12, and 02/21 Anti-Coag Initial Assessment Social Hx Patient Tobacco Use Status: Current everyday Tobacco user Tobacco use type: Cigarette Smoking packs per day: 0.5 alcohol intake: former Alcohol intake frequency: does not drink Cardiovascular Hx: HTN (not current ) and Other (pt states she has a whole in her heart ) Lung Disease HX: COPD and DVT/PE (several clots in LEGS BILAT) Musculoskeletal Hx: Arthritis (ALL OVER ) and Other (FIBROMYALGIA ) Blood Disorder Hx: Anemia and Hyperlipidemia GI Hx: Ulcers and Hemorrhoids Neurological Hx: Epilepsy/Seizures (OCTOBER 2024 - NEWLY DIAGNOSED ), Stroke/TIA (MULTIPLE - RESIDUAL WEAKNESS ) and Migraines/Headaches (FEW A WEEK - Takes tylenol- migraines since 14 years old) 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
== END 2025-01-31 11:01 | disposition home or self-care (01) ==
LOC: HO.ACS 10:14
PROVIDERS: PCP Internal Medicine; Visit Provider Internal Medicine Medical Oncology
DX: Z79.01 Long term (current) use of anticoagulants (principal)

== ENCOUNTER → 2025-01-31 10:14 | Outpatient (BNVA) | payer MEDICAID, SELFPAY | PROVIDERS: PCP Internal Medicine; Visit Provider Internal Medicine Medical Oncology | DX: I69.351 Hemiplegia and hemiparesis following cerebral infarction affecting right dominant side (principal); I63.40 Cerebral infarction due to embolism of unspecified cerebral artery; Z79.01 Long term (current) use of anticoagulants; Z51.81 Encounter for therapeutic drug level monitoring | CPT/HCPCS: 85610; 99211 ==

== ENCOUNTER 2025-02-07 10:33 | Outpatient (AMB) | payer MEDICAID, SELFPAY ==
[2025-02-07 11:01] LABS: Prothrombin Time Whole Bld POC 74.5 sec (11.1-13.5); ~PT, ~INR - Anti Coag Clinic 6.2 (0.9-1.1)
--- NOTE | 2025-02-07 11:14 | MHC.OFFVISCO ---
Intake Intake Visit Reasons: Anticoagulation Allergies aspirin Adverse Reaction (Mild, Verified 02/07/25 10:51) Vomiting Medication List - Last Reconciled 02/07/25 by Jen Pena RN acetaminophen 650 mg (2 x 325 mg) PO TID PRN 30 days [ADULT BRIEFS (small) As directed] albuterol sulfate 2.5 mg (6 mL) inhalation Q4-6H PRN 30 days amitriptyline 10 mg PO BEDTIME 30 days ascorbic acid (vitamin C) (Vitamin C) 500 mg PO DAILY atorvastatin 80 mg PO BEDTIME cholecalciferol (vitamin D3) (Vitamin D3) 1,000 units PO DAILY 90 days docusate sodium 100 mg PO BID PRN ferrous sulfate 325 mg PO DAILY 90 days food supplemt, lactose-reduced (Ensure Plus) 1 ea PO TIDWMEAL 30 days levetiracetam 500 mg PO BID 30 days menthol 5% (Icy Hot (menthol)) 1 patch topical BID ondansetron HCl 4 mg PO Q8H PRN pantoprazole 40 mg PO DAILY PRN 90 days pramipexole 0.125 mg PO BEDTIME PRN 30 days ropinirole 2 mg (2 x 1 mg) PO BEDTIME 30 days ropinirole 2 mg PO BEDTIME sertraline 25 mg PO DAILY 90 days Symbicort 160-4.5 mcg/actuation (budesonide-formoterol) 2 puffs PO BID NS Ventolin HFA 90 mcg/actuation (albuterol sulfate) 2 puffs inhalation QID PRN NS warfarin 2.5 mg See Protocol PO DAILY Nursing Note INR: 6.2 CRITICAL INR refused lab draw- she had a correlation done in past ? DIET or lack there of Medications and supplements reviewed No changes in health, diet, medications, or supplements, Denies any signs and symptoms of bleeding or bruising or clotting. Bleeding, bruising, clotting discussed Nutritional guidance given - eat greens at least 1 day / week Dose: hold warfarin x 2 days then 1.25mg monday and recheck monday F/U INR: 02/10/2025 Patient verbalizes understanding of instructions given and agreed to greens x 1 serving / week t/c to PCP spoke with Sveta regarding pt status to convey to PCP Anti-Coag Initial Assessment Social Hx Patient Tobacco Use Status: Current everyday Tobacco user Tobacco use type: Cigarette Smoking packs per day: 0.5 alcohol intake: former Alcohol intake frequency: does not drink Cardiovascular Hx: HTN (not current ) and Other (pt states she has a whole in her heart ) Lung Disease HX: COPD and DVT/PE (several clots in LEGS BILAT) Musculoskeletal Hx: Arthritis (ALL OVER ) and Other (FIBROMYALGIA ) Blood Disorder Hx: Anemia and Hyperlipidemia GI Hx: Ulcers and Hemorrhoids Neurological Hx: Epilepsy/Seizures (OCTOBER 2024 - NEWLY DIAGNOSED ), Stroke/TIA (MULTIPLE - RESIDUAL WEAKNESS ) and Migraines/Headaches (FEW A WEEK - Takes tylenol- migraines since 14 years old) 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 Illness/Depression: Yes Coding Level of Care Code Est Patient Level 2 Diagnoses Current use of anticoagulant therapy Z79.01 Comment complex md call and transportation call Assessment & Plan Assessment & Plan (1) Current use of anticoagulant therapy: Code(s): Z79.01 - jail (current) use of anticoagulants Category: Medical
== END 2025-02-07 11:57 | disposition home or self-care (01) ==
LOC: HO.ACS 10:33
PROVIDERS: PCP Internal Medicine; Visit Provider Internal Medicine Medical Oncology
DX: Z79.01 Long term (current) use of anticoagulants (principal)

== ENCOUNTER → 2025-02-07 10:33 | Outpatient (BNVA) | payer MEDICAID, SELFPAY | PROVIDERS: PCP Internal Medicine; Visit Provider Internal Medicine Medical Oncology | DX: I63.9 Cerebral infarction, unspecified (principal); Z79.01 Long term (current) use of anticoagulants; Z51.81 Encounter for therapeutic drug level monitoring | CPT/HCPCS: 85610; 99212 ==

== ENCOUNTER 2025-02-10 16:21 | Outpatient (AMB) | payer MEDICAID, SELFPAY ==
--- NOTE | 2025-02-10 16:36 | MHC.OFFVISCO ---
Intake Intake Visit Reasons: Anticoagulation Allergies aspirin Adverse Reaction (Mild, Verified 02/07/25 10:51) Vomiting Nursing Note INR received from VNA nurse Betzy, INR today is 2.8, previous INR 6.2 T/c to nurse regarding pt status, dosing and diet T/c to patient by nurse Patient status: per nurse denies any signs and symptoms of any unusual bruising, bleeding or clotting Medication or supplements: no changes Diet: junk food and broccoli x 1 serving/ week Activity: as tolerated and encouraged Dose: 1.25mg x 6 days/ 2.5mg x 1 day Dosing and diet instructions given with next retest date of 02/12/25 due to hx of multiple strokes want to make sure INR Remains in range with drastic dose change. , Nurse and patient verbalizes understanding of instructions given with accurate read back Anti-Coag Initial Assessment Social Hx Patient Tobacco Use Status: Current everyday Tobacco user Tobacco use type: Cigarette Smoking packs per day: 0.5 alcohol intake: former Alcohol intake frequency: does not drink Cardiovascular Hx: HTN (not current ) and Other (pt states she has a whole in her heart ) Lung Disease HX: COPD and DVT/PE (several clots in LEGS BILAT) Musculoskeletal Hx: Arthritis (ALL OVER ) and Other (FIBROMYALGIA ) Blood Disorder Hx: Anemia and Hyperlipidemia GI Hx: Ulcers and Hemorrhoids Neurological Hx: Epilepsy/Seizures (OCTOBER 2024 - NEWLY DIAGNOSED ), Stroke/TIA (MULTIPLE - RESIDUAL WEAKNESS ) and Migraines/Headaches (FEW A WEEK - Takes tylenol- migraines since 14 years old) 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
== END 2025-02-10 16:50 | disposition home or self-care (01) ==
LOC: HO.ACS 16:21
PROVIDERS: PCP Internal Medicine; Visit Provider Internal Medicine Medical Oncology
DX: Z79.01 Long term (current) use of anticoagulants (principal)

== ENCOUNTER → 2025-02-10 16:21 | Outpatient (BNVA) | payer MEDICAID, SELFPAY | PROVIDERS: PCP Internal Medicine; Visit Provider Internal Medicine Medical Oncology | DX: Z79.01 Long term (current) use of anticoagulants (principal) | CPT/HCPCS: 99211 ==

== ENCOUNTER 2025-02-21 11:12 | Outpatient (AMB) | payer MEDICAID, SELFPAY ==
[2025-02-21 11:32] LABS: Prothrombin Time Whole Bld POC 79.2 sec (11.1-13.5); ~PT, ~INR - Anti Coag Clinic 6.6 (0.9-1.1)
[2025-02-21 11:37] LABS: Prothrombin Time Whole Bld POC 80.8 sec (11.1-13.5); ~PT, ~INR - Anti Coag Clinic 6.7 (0.9-1.1)
--- NOTE | 2025-02-21 11:47 | MHC.OFFVISCO ---
Intake Intake Visit Reasons: Anticoagulation Allergies aspirin Adverse Reaction (Mild, Verified 02/21/25 11:12) Vomiting Medication List - Last Reconciled 02/21/25 by Jen Pena RN acetaminophen 650 mg (2 x 325 mg) PO TID PRN 30 days [ADULT BRIEFS (small) As directed] albuterol sulfate 2.5 mg (6 mL) inhalation Q4-6H PRN 30 days amitriptyline 10 mg PO BEDTIME 30 days ascorbic acid (vitamin C) (Vitamin C) 500 mg PO DAILY atorvastatin 80 mg PO BEDTIME cholecalciferol (vitamin D3) (Vitamin D3) 1,000 units PO DAILY 90 days docusate sodium 100 mg PO BID PRN ferrous sulfate 325 mg PO DAILY 90 days food supplemt, lactose-reduced (Ensure Plus) 1 ea PO TIDWMEAL 30 days levetiracetam 500 mg PO BID 30 days menthol 5% (Icy Hot (menthol)) 1 patch topical BID ondansetron HCl 4 mg PO Q8H PRN pantoprazole 40 mg PO DAILY PRN 90 days pramipexole 0.125 mg PO BEDTIME PRN 30 days ropinirole 2 mg (2 x 1 mg) PO BEDTIME 30 days ropinirole 2 mg PO BEDTIME sertraline 25 mg PO DAILY 90 days Symbicort 160-4.5 mcg/actuation (budesonide-formoterol) 2 puffs PO BID NS Ventolin HFA 90 mcg/actuation (albuterol sulfate) 2 puffs inhalation QID PRN NS warfarin 2.5 mg See Protocol PO DAILY Nursing Note Pt comes to [facility] with [employer] via wheel chair and arranged transportation INR ?6.6/ repeated 6.7 out of therapeutic range- refused lab draw Medications and supplements reviewed- no changes per med nurse Bernarda Patient status: appears well, states she does not have any pain or unusual bleeding or bruising, She is smoking a little less (decreased smoking can raise the INR) Medications or supplements: no changes per nurse, call to pharmacy - states both 5mg and 2.5mg tablet picked up 02/10/2025, nurse states that 5mg tab not used, she was enc to through out, call to PCP to fill 1mg tab and dosing to be re-started with lowest dose and adjust as needed then if larger dosing required a higher dose will be ordered. Diet: decreased with hot weather * she states she is supposed to be having 1 ensure daily and has not been because they have not been ordered. She is physically unable to prepare meals, she has meals on wheels but does not like them, she does not like fruits and vegetables, snacks on chips and cookies occ broccoli, coffee and soda with ice- nothing else Denies any signs and symptoms of bleeding or clotting or unusual bruising Bleeding, bruising, clotting discussed Nutritional guidance given: please start 1 daily ensure when you receive them Dose: hold warfarin fri sat sun F/U INR Date : 02/24/2025?? t/c with Med nurse Bernarda regarding pt status and plan of care Patient, [employer] and [employer] Nurse verbalizing understanding of instructions given. T/c to PCP spoke with william regarding pt status to convey toPCP Msg also sent to PCP call to transportation for ride arrangements Anti-Coag Initial Assessment Social Hx Patient Tobacco Use Status: Current everyday Tobacco user Tobacco use type: Cigarette Smoking packs per day: 0.5 alcohol intake: former Alcohol intake frequency: does not drink Cardiovascular Hx: HTN (not current ) and Other (pt states she has a whole in her heart ) Lung Disease HX: COPD and DVT/PE (several clots in LEGS BILAT) Musculoskeletal Hx: Arthritis (ALL OVER ) and Other (FIBROMYALGIA ) Blood Disorder Hx: Anemia and Hyperlipidemia GI Hx: Ulcers and Hemorrhoids Neurological Hx: Epilepsy/Seizures (OCTOBER 2024 - NEWLY DIAGNOSED ), Stroke/TIA (MULTIPLE - RESIDUAL WEAKNESS ) and Migraines/Headaches (FEW A WEEK - Takes tylenol- migraines since 14 years old) 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
--- OUTSIDE RECORDS SUMMARY | 2025-02-21 11:49 | XMS_ITS | Data Portability ---
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 Procedures Surgical History Date Name Laterality Status Provider Name and Address Organization Details Recorded Time 01/18/2024 FOL_DP completed МАРИНА TIJERINA MD [address] [place] [address], [place], [phone], [facility] 01/18/2024 14:22:46 Imaging Results None recorded. Procedure Notes None recorded. Medical Equipment None Reported. Allergies Allergen ID Allergen Name Allergen Category Reaction Reaction Severity Criticality Documentation Date Start Date Code Code System Note Provider Name and Address Organization Details Recorded Time 410155 aspirin medicatio n Not available Not available Not available 01/18/2024 1191 RxNorm Becka ruiz [facility] 14:01:27 804972 lobster allergeni c extract food Not available Not available Not available 01/18/2024 48899 1 RxNorm Becka ruiz [facility] 14:01:39 Medications Name Sig Start Date [...] % topical cream APPLY SMALL DOLLOP TO [facility] SITE 1 HR PRIOR TO APPT AND [...] Updated DateTime 01/18/2024 154.94 cm 13.2 kg/m2 03511.47 g Becka Sanchez ID - [facility] 01/18/2024 13:59:20 Social History Question Answer Notes LastModified by Organizat ion Details LastModified Time Tobacco Smoking Status Current Every Day Smoker МАРИНА TIJERINA MD [address] [place] [address], [phone], [place] - [facility] 01/18/2024 14:06:41 How Much Tobacco Do [...] Note 3055 МАРИНА TIJERINA MD [facility] [address] [address] 01/18/2024 13:07:48 01/18/2024 14:25:55 Malignant tumor of supraglottis 962510841 C32.1 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 (HMO) [employer] Soraida Arroyo [id number] Soraida Arroyo 01/16/2024 1 MEDICAID-ID: [facility] Soraida Arroyo [id number] Soraida Arroyo Notes Date Note Type Note Provider Name and Address Organization Details Recorded Time 01/18/2024 text/html Malignant neopla sm of supraglottis [id number] by Dr Salomón Chen 10/24/23-10/28/23 Admitted to [facility] - transfer from [place].10/24/2023 CT neck with contrast at [place] radiology shows enhancing ulcerated nodular mucosal mass [...] squamous cell carcinoma p16 negative10/25/23 ENT at [facility] exam - results not available 11/27/2023 PET/CT at [facility] shows left epiglottis uptake extends from the midline to level of vocal cords. Level 2 lymph nodes measuring 18 mm and 15 mm on the left side. 1 cm spiculated nodule right upper lobe.12/14/[address] onc[address] with [address]. More12/19/[address] onc[address] with Dr. Lorenzana12/26/2023 swallow therapy Aleah TIJERINA MD [address] [place] [address], [phone], [place] - [facility] 01/18/2024 14:24:27 OBGyn Episode No OBEpisode recorded.
--- OUTSIDE RECORDS SUMMARY | 2025-02-21 11:49 | XMS_ITS | Clinical Summary ---
Author Organization [facility] Address [address] [place] [address] Care Team Providers Care Auto Transport Driver Name Role Phone Jennifer Flores MD Primary Care Provider [phone] Allergies Active Allergy Reactions Criticality Noted Date [...] Years Used Date Smoking Tobacco: Never Assessed [facility] Utilities Answer Date Recorded In the past 12 months has th e [employer], gas, oil, or water company threatened to [...] place to sleep or slept in a care home (including now)? No 10/26/2023 Comments Unknown Sex [...] 75 10/28/2023 2:04 PM EDT Temperature 35.7 C (96.3 F) 10/28/2023 2:04 PM EDT Respiratory Rate 18 10/28/2023 2:04 PM EDT [...] 60-74 years 1-dose series) 2022 COVID-19 Vaccine ( - 2023-2 5 season) 2024 Influenza Vaccine 03/14/2025 Hepatitis B Vaccines Aged Out No long er eligible based on patient's age to complete this topic Insurance MEDICAID OUT OF STATE [facility] Advance Directives * Full Code (Latest Code Status on File) Date Activated Date Inactivated Comments 10/25/2023 12:42 AM Care Teams Auto Transport Driver Relationship Specialty Start Date End Date Jennifer Flores MD [address] [place] [id number] PCP - General Internal Medicine 10/26/23
== END 2025-02-21 12:09 | disposition home or self-care (01) ==
LOC: HO.ACS 11:12
PROVIDERS: PCP Internal Medicine; Visit Provider Internal Medicine Medical Oncology
DX: Z79.01 Long term (current) use of anticoagulants (principal)

== ENCOUNTER → 2025-02-21 11:12 | Outpatient (BNVA) | payer MEDICAID, SELFPAY | PROVIDERS: PCP Internal Medicine; Visit Provider Internal Medicine Medical Oncology | DX: I63.9 Cerebral infarction, unspecified (principal); Z79.01 Long term (current) use of anticoagulants; Z51.81 Encounter for therapeutic drug level monitoring | CPT/HCPCS: 85610; 99212 ==

== ENCOUNTER 2025-02-28 10:02 | Outpatient (AMB) | payer OTHER, SELFPAY ==
[2025-02-28 10:16] LABS: Prothrombin Time Whole Bld POC 19.0 sec (11.1-13.5); ~PT, ~INR - Anti Coag Clinic 1.6 (0.9-1.1)
--- OUTSIDE RECORDS SUMMARY | 2025-02-28 10:22 | XMS_ITS | Clinical Summary ---
Author Organization [facility] Address [address] [place] [address] Care Team Providers Care Solids Control Technician Name Role Phone Jennifer Flores MD Primary Care Provider [phone]- [phone] Allergies Active Allergy Reactions Criticality Noted Date [...] Years Used Date Smoking Tobacco: Never Assessed [facility] Utilities Answer Date Recorded In the past 12 months has th e [employer], gas, oil, or water company threatened to [...] place to sleep or slept in a assisted (including now)? No 10/26/2023 Comments Unknown Sex [...] this topic Insurance MEDICAID OUT OF STATE [facility] Advance Directives * Full Code (Latest Code Status on File) Date Activated Date Inactivated Comments 10/25/2023 12:42 AM Care Teams Solids Control Technician Relationship Specialty Start Date End Date Jennifer Flores MD [address] [place] [id number] PCP - General Internal Medicine 10/26/23
--- NOTE | 2025-02-28 10:31 | MHC.OFFVISCO ---
Intake Intake Visit Reasons: Anticoagulation Allergies aspirin Adverse Reaction (Mild, Verified 02/28/25 10:07) Vomiting Medication List - Last Reconciled 02/28/25 by Jen Pena RN acetaminophen 650 mg (2 x 325 mg) PO TID PRN 30 days [ADULT BRIEFS (small) As directed] albuterol sulfate 2.5 mg (6 mL) inhalation Q4-6H PRN 30 days amitriptyline 10 mg PO BEDTIME 30 days ascorbic acid (vitamin C) (Vitamin C) 500 mg PO DAILY atorvastatin 80 mg PO BEDTIME cholecalciferol (vitamin D3) (Vitamin D3) 1,000 units PO DAILY 90 days docusate sodium 100 mg PO BID PRN ferrous sulfate 325 mg PO DAILY 90 days food supplemt, lactose-reduced (Ensure Plus) 1 ea PO TIDWMEAL 30 days levetiracetam 500 mg PO BID 30 days menthol 5% (Icy Hot (menthol)) 1 patch topical BID ondansetron HCl 4 mg PO Q8H PRN pantoprazole 40 mg PO DAILY PRN 90 days pramipexole 0.125 mg PO BEDTIME PRN 30 days ropinirole 2 mg (2 x 1 mg) PO BEDTIME 30 days ropinirole 2 mg PO BEDTIME sertraline 25 mg PO DAILY 90 days Symbicort 160-4.5 mcg/actuation (budesonide-formoterol) 2 puffs PO BID NS Ventolin HFA 90 mcg/actuation (albuterol sulfate) 2 puffs inhalation QID PRN NS warfarin 2.5 mg See Protocol PO DAILY Nursing Note INR: 1.6 out of therapeutic range Medications and supplements reviewed Her visiting nurse is away and set up pill box for the week, warfarin dose placed in pill box by this RN today for todays dose, all other days 1.25mg verified in pill box No changes in health, diet, medications, or supplements, Denies any signs and symptoms of bleeding or bruising or clotting or stroke symptoms. 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 given Anti-Coag Initial Assessment Social Hx Patient Tobacco Use Status: Current everyday Tobacco user Tobacco use type: Cigarette Smoking packs per day: 0.5 alcohol intake: former Alcohol intake frequency: does not drink Cardiovascular Hx: HTN (not current ) and Other (pt states she has a whole in her heart ) Lung Disease HX: COPD and DVT/PE (several clots in LEGS BILAT) Musculoskeletal Hx: Arthritis (ALL OVER ) and Other (FIBROMYALGIA ) Blood Disorder Hx: Anemia and Hyperlipidemia GI Hx: Ulcers and Hemorrhoids Neurological Hx: Epilepsy/Seizures (OCTOBER 2024 - NEWLY DIAGNOSED ), Stroke/TIA (MULTIPLE - RESIDUAL WEAKNESS ) and Migraines/Headaches (FEW A WEEK - Takes tylenol- migraines since 14 years old) 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
== END 2025-02-28 10:35 | disposition home or self-care (01) ==
LOC: HO.ACS 10:02
PROVIDERS: PCP Internal Medicine; Visit Provider Internal Medicine Medical Oncology
DX: Z79.01 Long term (current) use of anticoagulants (principal)

== ENCOUNTER → 2025-02-28 10:02 | Outpatient (BNVA) | payer OTHER, SELFPAY | PROVIDERS: PCP Internal Medicine; Visit Provider Internal Medicine Medical Oncology | DX: I63.9 Cerebral infarction, unspecified (principal); Z79.01 Long term (current) use of anticoagulants; Z51.81 Encounter for therapeutic drug level monitoring | CPT/HCPCS: 85610; 99211 ==

== ENCOUNTER 2025-03-07 10:24 | Outpatient (AMB) | payer OTHER, SELFPAY ==
--- NOTE | 2025-03-07 10:38 | MHC.OFFVISCO ---
Intake Intake Visit Reasons: Anticoagulation Allergies aspirin Adverse Reaction (Mild, Verified 03/07/25 10:28) Vomiting Medication List - Last Reconciled 03/07/25 by Bhumika Hong RN acetaminophen 650 mg (2 x 325 mg) PO TID PRN 30 days [ADULT BRIEFS (small) As directed] albuterol sulfate 2.5 mg (6 mL) inhalation Q4-6H PRN 30 days amitriptyline 10 mg PO BEDTIME 30 days ascorbic acid (vitamin C) (Vitamin C) 500 mg PO DAILY atorvastatin 80 mg PO BEDTIME cholecalciferol (vitamin D3) (Vitamin D3) 1,000 units PO DAILY 90 days docusate sodium 100 mg PO BID PRN ferrous sulfate 325 mg PO DAILY 90 days food supplemt, lactose-reduced (Boost) 1 ea PO DAILY 90 days food supplemt, lactose-reduced (Ensure Plus) 1 ea PO TIDWMEAL 30 days food supplemt, lactose-reduced (Ensure oral liquid) 1 ea PO DAILY 90 days levetiracetam 500 mg PO BID 30 days menthol 5% (Icy Hot (menthol)) 1 patch topical BID ondansetron HCl 4 mg PO Q8H PRN pantoprazole 40 mg PO DAILY PRN 90 days pramipexole 0.125 mg PO BEDTIME PRN 30 days ropinirole 2 mg (2 x 1 mg) PO BEDTIME 30 days ropinirole 2 mg PO BEDTIME sertraline 25 mg PO DAILY 90 days Symbicort 160-4.5 mcg/actuation (budesonide-formoterol) 2 puffs PO BID NS Ventolin HFA 90 mcg/actuation (albuterol sulfate) 2 puffs inhalation QID PRN NS warfarin 2.5 mg See Protocol PO DAILY Nursing Note INR 1.8-?? out of therapeutic range of 2-3 Medications and supplements reviewed Patient status: pt to acs in w/c acompanied by labor relations analyst Medications or supplements: no changes Diet: same Denies any signs and symptoms of bleeding or clotting or unusual bruising Bleeding, bruising, clotting discussed Nutritional guidance given: no greens for 2 days, eat reds to raise Dose: take 2.5mg today and tomm then cont 1.25mg x 6, 2.5mg x 2 F/U INR Date : 03/12/25 per prev note Patient verbalizing understanding of instructions given. pt nurse nellie called with dosing dietary management and f/u appt t/c placed to [facility] enc[employer] to discuss transportation Anti-Coag Initial Assessment Social Hx Patient Tobacco Use Status: Current everyday Tobacco user Tobacco use type: Cigarette Smoking packs per day: 0.5 alcohol intake: former Alcohol intake frequency: does not drink Cardiovascular Hx: HTN (not current ) and Other (pt states she has a whole in her heart ) Lung Disease HX: COPD and DVT/PE (several clots in LEGS BILAT) Musculoskeletal Hx: Arthritis (ALL OVER ) and Other (FIBROMYALGIA ) Blood Disorder Hx: Anemia and Hyperlipidemia GI Hx: Ulcers and Hemorrhoids Neurological Hx: Epilepsy/Seizures (OCTOBER 2024 - NEWLY DIAGNOSED ), Stroke/TIA (MULTIPLE - RESIDUAL WEAKNESS ) and Migraines/Headaches (FEW A WEEK - Takes tylenol- migraines since 14 years old) 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 Illness/Depression: Yes Coding Level of Care Code Est Patient Level 2 Diagnoses Current use of anticoagulant therapy Z79.01 Results AMB INR Fingerstick AMB INR Fingerstick 1.8 Last Edit by Bhumika Hnog RN on 03/07/25 10:40 interface delay Assessment & Plan Assessment & Plan (1) Current use of anticoagulant therapy: Code(s): Z79.01 - [facility] (current) use of anticoagulants Category: Medical
--- OUTSIDE RECORDS SUMMARY | 2025-03-07 10:39 | XMS_ITS | Clinical Summary ---
Author Organization [facility] Address [address] [place] [address] Care Team Providers Care Tapper Bit Name Role Phone Jennifer Flores MD Primary Care Provider [phone]- [phone] Allergies Active Allergy Reactions Criticality Noted Date [...] Years Used Date Smoking Tobacco: Never Assessed [facility] Utilities Answer Date Recorded In the past 12 months has th e [employer], gas, oil, or water company threatened to [...] place to sleep or slept in a correction (including now)? No 10/26/2023 Comments Unknown Sex [...] this topic Insurance [place] [facility] [place] Plan / Payer (Ef fective for All Dates) Name:Soraida Felix Relation to Subscriber:Self Name:Soraida Felix Payer ID:Not on file Group ID:Not on file Type:Not on file Address: [address] [place] [id number] Advance Directives * Full Code (Latest Code Status on File) Date Activated Date Inactivated Comments 10/25/2023 12:42 AM Care Teams Tapper Bit Relationship Specialty Start Date End Date Jennifer Flores MD [address] [place] [id number] PCP - General Internal Medicine 10/26/23
--- OUTSIDE RECORDS SUMMARY | 2025-03-07 10:39 | XMS_ITS | Data Portability ---
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 Procedures Surgical History Date Name Laterality Status Provider Name and Address Organization Details Recorded Time 01/18/2024 FOL_DP completed МАРИНА TIJERINA MD [address] [place] [address], [place], [phone], [facility] 01/18/2024 14:22:46 Imaging Results None recorded. Procedure Notes None recorded. Medical Equipment None Reported. Allergies Allergen ID Allergen Name Allergen Category Reaction Reaction Severity Criticality Documentation Date Start Date Code Code System Note Provider Name and Address Organization Details Recorded Time 559444 aspirin medicatio n Not available Not available Not available 01/18/2024 1191 RxNorm Becka ruiz [facility] 14:01:27 387492 lobster allergeni c extract food Not available Not available Not available 01/18/2024 99733 1 RxNorm Becka ruiz [facility] 14:01:39 Medications Name Sig Start Date Stop [...] % topical cream APPLY SMALL DOLLOP TO [facility] SITE 1 HR PRIOR TO APPT AND [...] Updated DateTime 01/18/2024 154.94 cm 13.2 kg/m2 57731.47 g Becka Sanchez [place] - [facility] 01/18/2024 13:59:20 Social History Question Answer Notes LastModified by Organizat ion Details LastModified Time Tobacco Smoking Status Current Every Day Smoker МАРИНА TIJERINA MD [address] [place] [address], [phone], [place] - [facility] 01/18/2024 14:06:41 How Much Tobacco Do You [...] Note 3055 МАРИНА TIJERINA MD [facility] [address] [phone] 01/18/2024 13:07:48 01/18/2024 14:25:55 Malignant tumor of supraglottis 552925821 C32.1 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 35293638 C77.0 Health Concerns Section Related Observation LastModified by Organization Detai ls LastModified Time None Recorded Concern Status LastModified by Organization Details LastModified Time None Recorded Advance Directives Directive None Recorded Payers Insurance Date Sequence Insurance Name Policy Number Policy Salazar Covered Member ID Salazar Member ID Guarantor Name 01/31/2024 1 [facility] (H[facility]) [place] Soraida Arroyo [id number] Soraida Arroyo 01/16/2024 1 [place] [facility] Soraida Arroyo [id number] Soraida Arroyo Notes Date Note Type Note Provider Name and Address Organization Details Recorded Time 01/18/2024 text/html ROS as noted in the HPI Malignant neoplasm of supraglottis [id number] by Dr Salomón Chen 10/24/23-10/28/[address] [facility] - transfer from [place].10/24/2023 CT neck with contrast at [facility] shows enhancing ulcerated nodular mucosal mass [...] squamous cell carcinoma p16 negative10/25/23 ENT at [facility] exam - results not available 11/27/2023 PET/CT at [facility] shows left epiglottis uptake extends from the midline to level of vocal cords. Level 2 lymph nodes measuring 18 mm and 15 mm on the left side. 1 cm spiculated nodule right upper lobe.12/14/[address] radiation onc[address]. More12/19/20[address] with Dr. Lorenzana12/26/2023 swallow therapy Aleah TIJERINA MD [address] [place] [address], [phone], [facility] - [facility] 01/18/2024 14:24:27 OBGyn Episode No OBEpisode recorded.
[2025-03-07 16:23] LABS: Prothrombin Time Whole Bld POC 22.0 sec (11.1-13.5); ~PT, ~INR - Anti Coag Clinic 1.8 (0.9-1.1)
--- OUTSIDE RECORDS SUMMARY | 2025-04-05 20:00 | XMS_ITS | Clinical Summary ---
Author Organization Unknown Care Team Providers Care Electric Appliance Installer Name Role Phone JUANA MENDOZA, GARY Unavailable Unavailable KAITLYN JIMENEZ, ASHLEIGH Unavailable Unavailable Payers Payer Name Policy Type Policy Number Effective Date Expira tion Date [place] [id number] [facility] [id number] Problems Condition Name Condition Details Condition Category [...] FOLLOWING CEREBRAL INFARCTION Active 12-16 00:00: 00 PROGRAM COORDINATOR EXECUTIVE EDUCATION (CURRENT) USE OF ANTICOAGULAN TS Active 12-16 [...] 325 mg tablet 12-07 00:00: 00 Yes [id number] Every 6 hours as needed for pain 2 tablet NEEDED 2 tablet NEEDED (route: oral) Med Classific ation: Analgesic , Anti-infl ammatory or Antipyret ic amitriptyli ne 10 mg tablet 12-07 00:00: 00 Yes [id number] 10 mg BEDTIME 10 mg BEDTIME (route: oral) Med Classific ation: Central Nervous System Agents atorvastati n 80 mg tablet 12-07 00:00: 00 Yes [id number] 80 mg BEDTIME 80 mg BEDTIME (route: oral) Med Classific ation: Cardiovas cular Therapy Agents docusate sodium 100 mg capsule 12-07 00:00: 00 Yes [id number] 100 mg 2 TIMES DAILY 100 mg 2 TIMES DAILY (route: oral) Med Classific ation: Gastroint estinal Therapy Agents ferrous sulfate 325 mg (65 mg iron) tablet 12-07 00:00: 00 Yes [id number] 325 mg DAILY 325 mg DAILY (route: oral) Med Classific ation: Electroly te Balance-N utritiona l Products Keppra 500 mg tablet 12-07 00:00: 00 Yes [id number] 500 mg 2 TIMES DAILY 500 mg 2 TIMES DAILY (route: oral) Med Classific ation: Central Nervous System Agents multivitami n with minerals tablet 12-07 00:00: 00 Yes [id number] Per instruc tions DAILY Per instructio ns DAILY (route: oral) Med Classific ation: Electroly te Balance-N utritiona l Products pantoprazol e 40 mg tablet,mary ellen yed release 12-07 00:00: 00 Yes [id number] 40 mg DAILY 40 mg DAILY (route: oral) Med Classific ation: Gastroint estinal Therapy Agents pramipexole 0.125 mg tablet 12-07 00:00: 00 Yes [id number] 0.125 mg NEEDED 0.125 mg NEEDED (route: oral) Med Classific ation: Central Nervous System Agents ropinirole 1 mg tablet 12-07 00:00: 00 Yes [id number] 1 mg BEDTIME 1 mg BEDTIME (route: oral) Med Classific ation: Central Nervous System Agents sertraline 25 mg tablet 12-07 00:00: 00 Yes [id number] 25 mg DAILY 25 mg DAILY (route: oral) Med Classific ation: Central Nervous System Agents Symbicort 160 mcg-4.5 mcg/actuati on HFA aerosol inhaler 12-07 00:00: 00 Yes [id number] Per instruc tions 2 TIMES DAILY Per instructio ns 2 TIMES DAILY (route: inhalation ) Med Classific ation: Respirato ry Therapy Agents warfarin 2 mg tablet 12-07 00:00: 00 Yes [id number] 2 mg DAILY 2 mg MIKAYLA Y (route: oral) Med Classific ation: Hematolog ical Agents Vital Signs Vital Name Observation Time Observation Value Commen ts Temperature 2025-02-24 11:16:00.000 97.4 [degF] Temperature 2025-02-21 12:16:00.000 96.9 [degF] Temperature 2025-02-19 13:54:00.000 97.1 [degF] Temperature 2025-02-17 12:50:00.000 97.1 [degF] Temperature 2025-02-12 15:03:00.000 96.8 [degF] Temperature 2025-02-11 12:29:00.000 97.8 [degF] Temperature 2025-02-10 12:13:00.000 97.2 [degF] Temperature 2025-02-07 13:30:00.000 96.7 [degF] Pulse 2025-02-24 11:16:00.000 84 /min Pulse 2025-02-21 12:16:00.000 81 /min Pulse 2025-02-19 13:54:00.000 80 /min Pulse 2025-02-17 12:50:00.000 84 /min Pulse 2025-02-12 15:03:00.000 90 /min Pulse 2025-02-11 12:29:00.000 82 /min Pulse 2025-02-10 12:13:00.000 80 /min Pulse 2025-02-07 13:30:00.000 76 /min O2 Saturation (%) 2025-02-24 11:16:00.000 95 % O2 Saturation (%) 2025-02-21 12:15:00.000 96 % O2 Saturation (%) 2025-02-19 13:56:00.000 96 % O2 Saturation (%) 2025-02-17 12:50:00.000 95 % O2 Saturation (%) 2025-02-12 15:05:00.000 96 % O2 Saturation (%) 2025-02-11 12:30:00.000 96 % O2 Saturation (%) 2025-02-07 13:30:00.000 97 % Respirations 2025-02-24 11:16:00.000 16 /min Respirations 2025-02-21 12:16:00.000 16 /min Respirations 2025-02-19 13:54:00.000 16 /min Respirations 2025-02-17 12:50:00.000 16 /min Respirations 2025-02-12 15:03:00.000 16 /min Respirations 2025-02-11 12:29:00.000 16 /min Respirations 2025-02-10 12:13:00.000 16 /min Respirations 2025-02-07 13:30:00.000 16 /min Systolic Blood Pressure 2025-02-24 11:16:00.000 132 mm [Hg] Systolic Blood Pressure 2025-02-21 12:16:00.000 136 mm [Hg] Systolic Blood Pressure 2025-02-19 13:54:00.000 128 mm [Hg] Systolic Blood Pressure 2025-02-17 12:50:00.000 132 mm [Hg] Systolic Blood Pressure 2025-02-12 15:03:00.000 126 mm [Hg] Systolic Blood Pressure 2025-02-11 12:29:00.000 122 mm [Hg] Systolic Blood Pressure 2025-02-10 12:13:00.000 118 mm [Hg] Systolic Blood Pressure 2025-02-07 13:30:00.000 126 mm [Hg] Diastolic Blood Pressure 2025-02-24 11:16:00.000 70 mm [Hg] Diastolic Blood Pressure 2025-02-21 12:16:00.000 74 mm [Hg] Diastolic Blood Pressure 2025-02-19 13:54:00.000 74 mm [Hg] Diastolic Blood Pressure 2025-02-17 12:50:00.000 70 mm [Hg] Diastolic Blood Pressure 2025-02-12 15:03:00.000 70 mm [Hg] Diastolic Blood Pressure 2025-02-11 12:29:00.000 70 mm [Hg] Diastolic Blood Pressure 2025-02-10 12:13:00.000 74 mm [Hg] Diastolic Blood Pressure 2025-02-07 13:30:00.000 72 mm [Hg] Plan of Treatment Planned Activity [...] GOAL FOR HOME HEALTH.] Future Scheduled Test HOME HEALT H AIDE TO PROMPT PATIENT TO TAKE MEDICATIONS AND OBSERVE PATIENT HAS INGESTED MEDICATIONS [code = HOME HEALTH AIDE TO PROMPT PATIENT TO TAKE MEDICATIONS AND OBSERVE PATIENT HAS INGESTED MEDICATIONS ] Future Scheduled Test SKILLED NU RSE TO PRE-POUR MEDICATION PER MEDICATION LIST 3 X WEEK. [code = SKILLED NURSE TO PRE-POUR MEDICATION PER MEDICATION LIST 3 X WEEK.] Future Scheduled Test PATIENT MA Y HAVE [...] OF PATIENTS MENTAL/BEHAVIORAL STATUS, ASSESS VITAL SIGNS WEEKLY. ALLOW 2 PRNS FOR MEDICATION MANAGEMENT. [code = SKILLED NURSE TO O/A OF PATIENTS MENTAL/BEHAVIORAL STATUS, ASSESS VITAL SIGNS WEEKLY. ALLOW 2 PRNS FOR MEDICATION MANAGEMENT.] Future Scheduled Test SKILLED NU RSE FOR O/A OF NEUROCOGNITIVE AND BEHAVIORAL STATUS [code = SKILLED NURSE FOR O/A OF NEUROCOGNITIVE AND BEHAVIORAL STATUS] Future Scheduled Test SKILLED NU RSE FOR O/A OF GENERAL HEALTH STATUS OF PAIN, CARDIAC, RESPIRATORY, GASTROINTESTINAL, GENITOURINARY, SKIN, NEUROLOGIC, ENDOCRINE SYSTEMS TO IDENTIFY CHANGES ASSOCIATED WITH EXACERBATION FOR EARLY INTERVENTION OF COMPLICATIONS WEEKLY. [code = SKILLED NURSE FOR O/A OF GENERAL HEALTH STATUS OF PAIN, CARDIAC, RESPIRATORY, GASTROINTESTINAL, GENITOURINARY, SKIN, NEUROLOGIC, ENDOCRINE SYSTEMS TO IDENTIFY CHANGES ASSOCIATED WITH EXACERBATION FOR EARLY INTERVENTION OF COMPLICATIONS WEEKLY.] Future Scheduled Test SKILLED NU RSE FOR [...] INTERVENTION.] Future Scheduled Test SKILLED NU RSE TO INSTRUCT PATIENT/CAREGIVER ON COPD TO INCLUDE TEACHING AND SELF-MANAGEMENT RELATED TO COPD DISEASE PROCESS, SIGNS AND SYMPTOMS, AND COMPLICATIONS. [code = SKILLED NURSE TO INSTRUCT PATIENT/CAREGIVER ON COPD TO INCLUDE TEACHING AND SELF-MANAGEMENT RELATED TO COPD DISEASE PROCESS, SIGNS AND SYMPTOMS, AND COMPLICATIONS.] Future Scheduled Test SKILLED NU RSE TO [...] WHEN TO REPORT PROBLEMS.] Future Scheduled Test SKILLED NU RSE FOR O/A OF CLIENT'S CURRENT GRIEVING STATUS AND PROVIDE KNOWLEDGE AND SUPPORT FOR IMPROVED COPING WITH GRIEF [code = SKILLED NURSE FOR O/A OF CLIENT'S CURRENT GRIEVING STATUS AND PROVIDE KNOWLEDGE AND SUPPORT FOR IMPROVED COPING WITH GRIEF] Future Scheduled Test SKILLED NU RSE TO [...] SERVICES.] Future Scheduled Test SKILLED NU RSE WILL MAINTAIN SITUATIONAL AWARENESS FOR SAFETY AND WILL NOTIFY CLINICAL RUBBISH COLLECTION SUPERVISOR AND PHYSICIAN/PROVIDER WITH ANY CHANGE IN CONDITION. [code = SKILLED NURSE WILL MAINTAIN SITUATIONAL AWARENESS FOR SAFETY AND WILL NOTIFY CLINICAL RUBBISH COLLECTION SUPERVISOR AND PHYSICIAN/PROVIDER WITH ANY CHANGE IN CONDITION.] Future Scheduled Test SKILLED NU RSE FOR MONITORING, O/A AND TEACHING RELATED TO MANAGEMENT OF ANTICOAGULATION THERAPY INCLUDING DIET, MEDICATION SIDE EFFECTS, SAFETY MEASURES TO PREVENT INJURY. [code = SKILLED NURSE FOR MONITORING, O/A AND TEACHING RELATED TO MANAGEMENT OF ANTICOAGULATION THERAPY INCLUDING DIET, MEDICATION SIDE EFFECTS, SAFETY MEASURES TO PREVENT INJURY.] Goal Patient Goal - P AIN MANAGEMENT AND BEING ABLE TO PLAY ON MY IPAD Goal 2025-02-03 Patient Goal - P AIN MANAGEMENT AND BEING ABLE TO PLAY ON MY IPAD Goal Provider Goal - A PLAN OF CARE WILL BE ESTABLISHED THAT MEETS PATIENT'S ASSISTED NEEDS AND INCLUDES PATIENT GOAL FOR HOME HEALTH. Goal Provider Goal - PATIENT WILL TAKE MEDICATIONS PROMPTED BY THE HOME HEALTH AIDE THROUGHOUT CERTIFICATION PERIOD. Goal Provider Goal - PATIENT WILL COMPLY WITH MEDICATION WHEN SKILLED NURSE PRE-POURS MEDICATION THROUGHOUT CERTIFICATION PERIOD. Goal Provider Goal - MEDICATION WILL BE AVAILABLE DURING INCLEMENT WEATHER OR EMERGENT EVENT THROUGHOUT CERTIFICATION PERIOD. Goal Provider Goal - ALTERED MENTAL/BEHAVIORAL STATUS WILL BE IDENTIFIED PROMPTLY AND INTERVENTION INITIATED QUICKLY TO MINIMIZE ASSOCIATED RISKS THROUGHOUT CERTIFICATION PERIOD. Goal Provider Goal - PATIENT WILL BE ABLE TO PERFORM DAILY FUNCTIONS AND MAINTAIN OPTIMAL BEHAVIORAL/NEUROCOGNITIVE STATUS THROUGHOUT CERTIFICATION PERIOD. Goal Provider Goal - CHANGE IN GENERAL HEALTH STATUS WILL BE IDENTIFIED AND REPORTED TO PHYSICIAN FOR PROMPT INTERVENTION TO MINIMIZE ASSOCIATED RISKS THROUGHOUT CERTIFICATION PERIOD. Goal Provider Goal - PATIENT WILL BE ABLE TO PERFORM DAILY FUNCTIONS AND HAVE OPTIMAL IMPROVEMENT IN LEVEL OF ANXIETY THROUGHOUT CERTIFICATION PERIOD. Goal Provider Goal - PATIENT WILL REMAIN SAFE WITHOUT DECOMPENSATION IN DEPRESSIVE CONDITION, WHILE MAINTAINING OPTIMAL LEVEL OF MENTAL HEALTH AND WELL BEING THROUGHOUT CERTIFICATION PERIOD. Goal Provider Goal - PATIENT/CAREGIVER WILL VERBALIZE/DEMONSTRATE KNOWLEDGE AND MANAGEMENT OF COPD BY END OF EPISODE. Goal Provider Goal - PATIENT/CAREGIVER WILL VERBALIZE UNDERSTANDING OF EDUCATION PROVIDED ON MEDICATIONS BY THE END OF THE CERTIFICATION PERIOD. Goal Provider Goal - PATIENT WILL VERBALIZE STAGES OF GRIEF AND ACCEPTANCE OF OWN GRIEVING PROCESSES BY THE SIXTH THERAPEUTIC VISIT. Goal Provider Goal - PSYCHOSOCIAL NEEDS WILL BE IDENTIFIED AND PLAN IMPLEMENTED TO MINIMIZE RISK THROUGHOUT CERTIFICATION PERIOD. Goal Provider Goal - PATIENT WILL REMAIN SAFE IN THE COMMUNITY AND WILL BE FREE OF DANGER TO SELF AND OTHERS THROUGHOUT THE CERTIFICATION PERIOD. Goal Provider Goal - PATIENT/CAREGIVER WILL VERBALIZE/DEMONSTRATE UNDERSTANDING OF MANAGEMENT OF ANTICOAGULATION THERAPY AND PT/INR WILL BE MAINTAINED AT A THERAPEUTIC LEVEL BY END OF EPISODE. Encounters Start Date/Time End Date/Time Encounter Type Admission Type Attending [facility] Care Department Encounter ID Discharge Date Discharge Status Discharge Condition Discharge Reason Percent Goals Met 2025-02-06 00:00:00 2025-04-06 00:00:00 Outpatient RECERTIFIC ATION ASHLEIGH SAHNI [facility] [id number] .00
== END 2025-03-07 10:57 | disposition home or self-care (01) ==
LOC: HO.ACS 10:24
PROVIDERS: PCP Internal Medicine; Visit Provider Internal Medicine Medical Oncology
DX: Z79.01 Long term (current) use of anticoagulants (principal)

== ENCOUNTER → 2025-03-07 10:24 | Outpatient (BNVA) | payer OTHER, SELFPAY | PROVIDERS: PCP Internal Medicine; Visit Provider Internal Medicine Medical Oncology | DX: I69.351 Hemiplegia and hemiparesis following cerebral infarction affecting right dominant side (principal); I63.40 Cerebral infarction due to embolism of unspecified cerebral artery; Z79.01 Long term (current) use of anticoagulants; Z51.81 Encounter for therapeutic drug level monitoring | CPT/HCPCS: 85610; 99212 ==

== ENCOUNTER 2025-03-12 09:35 | Outpatient (AMB) | payer OTHER, SELFPAY ==
--- NOTE | 2025-03-12 09:51 | MHC.OFFVISCO ---
Intake Intake Visit Reasons: Anticoagulation Allergies aspirin Adverse Reaction (Mild, Verified 03/12/25 09:41) Vomiting Medication List - Last Reconciled 03/12/25 by Bhumika Hong RN acetaminophen 650 mg (2 x 325 mg) PO TID PRN 30 days [ADULT BRIEFS (small) As directed] albuterol sulfate 2.5 mg (6 mL) inhalation Q4-6H PRN 30 days amitriptyline 10 mg PO BEDTIME 30 days ascorbic acid (vitamin C) (Vitamin C) 500 mg PO DAILY atorvastatin 80 mg PO BEDTIME cholecalciferol (vitamin D3) (Vitamin D3) 1,000 units PO DAILY 90 days docusate sodium 100 mg PO BID PRN ferrous sulfate 325 mg PO DAILY 90 days food supplemt, lactose-reduced (Boost) 1 ea PO DAILY 90 days food supplemt, lactose-reduced (Ensure Plus) 1 ea PO TIDWMEAL 30 days food supplemt, lactose-reduced (Ensure oral liquid) 1 ea PO DAILY 90 days levetiracetam 500 mg PO BID 30 days menthol 5% (Icy Hot (menthol)) 1 patch topical BID ondansetron HCl 4 mg PO Q8H PRN pantoprazole 40 mg PO DAILY PRN 90 days pramipexole 0.125 mg PO BEDTIME PRN 30 days ropinirole 2 mg (2 x 1 mg) PO BEDTIME 30 days ropinirole 2 mg PO BEDTIME sertraline 25 mg PO DAILY 90 days Symbicort 160-4.5 mcg/actuation (budesonide-formoterol) 2 puffs PO BID NS Ventolin HFA 90 mcg/actuation (albuterol sulfate) 2 puffs inhalation QID PRN NS warfarin 2.5 mg See Protocol PO DAILY Nursing Note INR 4.6-? out of therapeutic range of 2-3 Medications and supplements reviewed Patient status: to acs in w/c with assorter pt denies etoh, poor appetite or tylenol Medications or supplements: no changes Diet: appetite fair Denies any signs and symptoms of bleeding or clotting or unusual bruising Bleeding, bruising, clotting discussed - pt and assorter aware at risk for bleeding and to avoid high risk activity Nutritional guidance given: food list reviewed, eat dark cooked greens to lower Dose: no warfarin today, 1.25mg tomm F/U INR Date : monday03/14/25- sandee to check poc inr Patient verbalizing understanding of instructions given. sandee called with elev inr and dosing. composed note to pcp for prn vna poc inr checks Anti-Coag Initial Assessment Social Hx Patient Tobacco Use Status: Current everyday Tobacco user Tobacco use type: Cigarette Smoking packs per day: 0.5 alcohol intake: former Alcohol intake frequency: does not drink Cardiovascular Hx: HTN (not current ) and Other (pt states she has a whole in her heart ) Lung Disease HX: COPD and DVT/PE (several clots in LEGS BILAT) Musculoskeletal Hx: Arthritis (ALL OVER ) and Other (FIBROMYALGIA ) Blood Disorder Hx: Anemia and Hyperlipidemia GI Hx: Ulcers and Hemorrhoids Neurological Hx: Epilepsy/Seizures (OCTOBER 2024 - NEWLY DIAGNOSED ), Stroke/TIA (MULTIPLE - RESIDUAL WEAKNESS ) and Migraines/Headaches (FEW A WEEK - Takes tylenol- migraines since 14 years old) 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 Illness/Depression: Yes Coding Level of Care Code Est Patient Level 2 Diagnoses Current use of anticoagulant therapy Z79.01 Assessment & Plan Assessment & Plan (1) Current use of anticoagulant therapy: Code(s): Z79.01 - oysterman (current) use of anticoagulants Category: Medical
[2025-03-12 09:52] LABS: Prothrombin Time Whole Bld POC 55.3 sec (11.1-13.5); ~PT, ~INR - Anti Coag Clinic 4.6 (0.9-1.1)
--- OUTSIDE RECORDS SUMMARY | 2025-03-12 10:07 | XMS_ITS | Clinical Summary ---
Author Organization [facility] Address [address] [place] [address] Care Team Providers Care Curtain Roller Assembler Name Role Phone Jennifer Flores MD Primary Care Provider [phone] Allergies Active Allergy Reactions Criticality Noted Date [...] Years Used Date Smoking Tobacco: Never Assessed [facility] Utilities Answer Date Recorded In the past 12 months has th e [employer], gas, oil, or water company threatened to [...] place to sleep or slept in a jail (including now)? No 10/26/2023 Comments Unknown Sex [...] Insurance MEDICAID OUT OF STATE [facility] Advance Directives * Full Code (Latest Code Status on File) Date Activated Date Inactivated Comments 10/25/2023 12:42 AM Care Teams Curtain Roller Assembler Relationship Specialty Start Date End Date Jennifer Flores MD [address] [place] [id number] PCP - General Internal Medicine 10/26/23
== END 2025-03-12 10:24 | disposition home or self-care (01) ==
LOC: HO.ACS 09:35
PROVIDERS: PCP Internal Medicine; Visit Provider Internal Medicine Medical Oncology
DX: Z79.01 Long term (current) use of anticoagulants (principal)

== ENCOUNTER → 2025-03-12 09:35 | Outpatient (BNVA) | payer OTHER, SELFPAY | PROVIDERS: PCP Internal Medicine; Visit Provider Internal Medicine Medical Oncology | DX: I69.351 Hemiplegia and hemiparesis following cerebral infarction affecting right dominant side (principal); I63.40 Cerebral infarction due to embolism of unspecified cerebral artery; I63.9 Cerebral infarction, unspecified; Z79.01 Long term (current) use of anticoagulants; Z51.81 Encounter for therapeutic drug level monitoring | CPT/HCPCS: 85610; 99212 ==

== ENCOUNTER → 2025-04-18 11:09 | Outpatient (BNVA) | payer OTHER, SELFPAY | PROVIDERS: PCP Internal Medicine; Visit Provider Internal Medicine Medical Oncology | DX: I63.9 Cerebral infarction, unspecified (principal); Z51.81 Encounter for therapeutic drug level monitoring; Z79.01 Long term (current) use of anticoagulants ==

== ENCOUNTER 2025-06-06 14:43 | Outpatient (AMB) | payer OTHER, SELFPAY ==
[2025-06-06 14:56] VITALS: BP 140/82; PULSE 71; O2SAT 96; BMI 12.9
--- NOTE | 2025-06-06 14:56 | MHC.PC.OV ---
Vital Signs 06/06/25 14:56 Height 5 ft 1 in Weight 68 lb 1.965 oz BMI 12.9 BP 140/82 H Blood Pressure Location Lt brachial Position Sitting Pulse 71 Pulse Source Pulse Oximeter Pulse Oximetry (%) 96 Oxygen Delivery Method Room Air Intake Visit Reasons: 4 Months, resched Dog Breeder Required: No Accompanied by: Self / Same As Patient Allergies aspirin Adverse Reaction (Mild, Verified 06/06/25 14:57) Vomiting Tobacco use date assessed: 06/06/25 Dental Screening Dental Screen Date: 06/06/25 Did you have a dental visit in the last 12 months?: No Did you have a dental problem in the last 6 months where you did not have access to dental care?: No Was dental information given to patient?: No HPI 4 Months, resched HPI Details Patient comes in today for her follow up visit States that she currently feels okay but has been experiencing increased pain in her right arm and right shoulder lately This is the same arm/forearm where she suffered a fracture late last year and had surgical fixation / ORIF with orthopedics Denies any recent injury or trauma to her right upper extremity lately She denies any headaches or dizziness Denies any chest pains, no SOB No nausea/vomiting, no abdominal pain No change in bowel habits noted She is currently receiving services from and medications are being managed by [facility] She has no follow up labs done recently [facility] Medical History (Updated 06/07/25 @ 20:01 by Ruddy Ortiz MD) Mood disorder GERD without esophagitis Pure hypercholesterolemia Hemiparesis affecting right side as late effect of cerebrovascular accident (CVA) Underweight (BMI < 18.5) Embolic stroke Embolic cerebral infarction Multiple cerebral infarctions Pulmonary nodule 1 cm or greater in diameter Squamous cell carcinoma of epiglottis Weight loss, unintentional Skin lesion of back Immunization declined Fracture of proximal end of fibula Contusion of leg, right Vaccination declined by patient Cervical lymphadenopathy Carotid stenosis, right Microcytic hypochromic anemia Left cervical lymphadenopathy Bilateral carotid bruits Smoker Idiopathic hypercalciuria Thyroid nodule Hx of angiography Vitamin D deficiency Goiter History of tachycardia GERD (gastroesophageal reflux disease) Gastritis Duodenitis Pyloric ulcer History of alcohol abuse Myopia of both eyes Papanicolaou smear declined Mammogram declined Smoker unmotivated to quit Restless leg syndrome Aortoiliac occlusive disease Tubular adenoma of colon Chronic Helicobacter pylori gastritis COPD (chronic obstructive pulmonary disease) Fibromyalgia Peripheral vascular disease Osteoporosis Surgical History (Updated 06/07/25 @ 20:01 by Ruddy Ortiz MD) S/P ORIF (open reduction internal fixation) fracture Hx of coronary angiogram History of removal of skin mole Hx of colonoscopy History of surgery on lower extremity Hx of foot surgery History of surgical removal of lesion (~10/28/21) History of lung biopsy (~04/2021) History of exploratory thoracotomy (~04/2018) History of tonsillectomy History of endarterectomy (~05/2020) History of ankle surgery (~11/2011) History of myringotomy History of appendectomy History of tubal ligation Family History Father Substance use disorder Mother Osteoporosis Substance use disorder Brother Substance use disorder Sister Substance use disorder Lung cancer Sister Substance use disorder Brother Substance use disorder Social History Household Members: None Housing: House Housing Other:: Rehab Are you a primary home care and home health aides teacher to a significant other at home: No Do you presently have visiting nurse or other home services: No Alcohol intake: former Patient Tobacco Use Status: Current everyday Tobacco user Tobacco use type: Cigarette Cigarette Packs Per Day: 0.5 Cigarettes Per Day: 4 Years Smoked: 50+ e-Cigarette/Vaping Use: Never Used Second Hand Smoke Exposure: No Advance Directives Date on File: 12/12/23 service: No Current occupational status: disabled Current occupation: disabled Current occupational exposures/hazards: No Cognitive needs: No Hearing needs: No Vision needs: Yes Questionnaire Thrive Questionnaire Date Thrive assessed: 12/04/24 I am a: Parent/Caregiver What is your living situation today?: I have a steady place to live Within the past 12 months, did the food you bought not last and you didn't have the money to get more?: Never true Within the past 12 months, did you worry whether your food would run out before you got money to buy more?: Never true Do you have trouble paying for medicines?: Yes Do you have trouble getting transportation to medical appointments?: No Do you have trouble paying your heating and electricity bill?: No Do you have trouble taking care of your child, family member or friend?: No Do you have trouble with day-to-day activities such as bathing, preparing meals, shopping, managing finances, etc.?: Yes Are you currently unemployed and looking for a job?: No Are you interested in more education?: No Please select the resources that you would like help with: Transportation Currently or been in a relationship where the following occur: No concerns reported THRIVE Score: 0 AUDIT C Alcohol Use Questionnaire (AUDIT-C) 1. How often do you have a drink containing alcohol?: Never 3. How often do you have six or more drinks on one occasion?: Never Total Score: 0 Score Reviewed/Action Taken: Yes ALBINA-7 AMB Questionnaire ALBINA-7 Date ALBINA - 7 assessed: 12/04/24 Source: Developed by Drs. Scout Amaya, Terri Sánchez, Javier Fry and colleagues, with an educational nkechi from [employer]. Review of Systems Const Denies chills, Reports fatigue, Denies fever(s), Denies headache(s) and Reports weakness (right-sided) ENT Reports dysphagia (due to Hx of laryngeal CA/cancer of epiglottis), Denies dizziness, Denies otalgia, Denies headache(s), Denies neck pain, Denies odynophagia and Denies sore throat Card Denies chest pain, Denies palpitations and Denies dyspnea Resp Denies chest congestion, Denies cough and Denies dyspnea GI Denies abdominal pain, Denies constipation, Reports dysphagia (due to Hx of laryngeal CA/cancer of epiglottis), Denies heartburn, Denies diarrhea, Denies nausea, Denies odynophagia and Denies vomiting Denies difficulty voiding, Denies nocturia and Denies dysuria Musc Details: increased pain over the right forearm, right elbow and right shoulder Denies back pain and Denies neck pain Skin/Breast Denies rash Neuro Denies dizziness, Denies headache(s) and Reports weakness (right-sided) Psych Reports anxiety and Reports depression Endo Reports fatigue and Denies palpitations Physical exam (Primary Care) Vital Signs: Last Vital Signs Pulse 71 06/06/25 14:56 BP 140/82 H 06/06/25 14:56 Pulse Ox 96 06/06/25 14:56 Oxygen Delivery Method Room Air 06/06/25 14:56 BMI result Body Mass Index 12.9 Tobacco/Smoking Status: Tobacco use Status Tobacco use date assessed 06/06/25 06/06/25 15:03 Patient Tobacco Use Status Current everyday Tobacco 06/06/25 15:03 Tobacco use type Cigarette 06/06/25 15:03 e-Cigarette/Vaping Use Never Used 06/06/25 15:03 Thrive Assessment: Date of Thrive Assessment Date Thrive assessed 12/04/24 06/06/25 15:03 Currently or been in a relationship where the following occur: No concerns reported Const General: no acute distress and alert HENMT Ears: TM's normal bilaterally and EAC's normal Throat: Yes posterior oropharynx normal and Yes tonsils normal (no TP congestion) Neck Neck: Yes supple and No lymphadenopathy Thyroid: Thyroid normal Resp Auscultation: clear to auscultation bilaterally, no rales and no wheezes Cardio Rate: regular rate Rhythm: regular rhythm Heart sounds: no murmurs GI Palpation (GI): Soft to palpation and nontender Auscultation: normal bowel sounds General: Yes no CVA tenderness Back/Spine/Pelvis Back: no CVA tenderness Thoracic/Lumbar Spine: lumbar spinal tenderness Skin Rashes: no rashes Neuro Other: (+) right hemiparesis Motor exam (neuro): Tremors during motor activity present Extrem General: Yes no clubbing, cyanosis or edema Right upper extremity: shoulder/upper arm Details: tenderness Location: of the A-C joint and elbow/forearm Details: tenderness Location: of the olecranon and of the mid-shaft forearm Coding Level of Care Code Est Pt Level 4 (84881) Diagnoses Cerebrovascular accident (CVA) due to embolism of cerebral artery I63.40 Precerebral and cerebral artery: unspecified cerebral artery Hemiparesis affecting right side as late effect of cerebrovascular accident (CVA) I69.351 Nonintractable epilepsy without status epilepticus, unspecified epilepsy type G40.909 Epilepsy type: unspecified Intractability: not intractable Status epilepticus: without status epilepticus Pure hypercholesterolemia E78.00 Chronic obstructive pulmonary disease, unspecified COPD type J44.9 COPD type: unspecified COPD GERD without esophagitis K21.9 Restless leg syndrome G25.81 Right arm pain M79.601 Iron deficiency anemia secondary to inadequate dietary iron intake D50.8 Anemia type: iron deficiency Iron deficiency anemia type: inadequate dietary iron intake Vitamin D deficiency E55.9 Constipation, unspecified constipation type K59.00 Constipation type: unspecified constipation type Mood disorder F39 Underweight (BMI < 18.5) R63.6; Z68.1 Assessment & Plan Assessment & Plan (1) Embolic stroke: Code(s): I63.9 - Cerebral infarction, unspecified Category: Medical Qualifiers: Precerebral and cerebral artery: unspecified cerebral artery Qualified Code(s): I63.40 - Cerebral infarction due to embolism of unspecified cerebral artery Plan: (+) Hx of mmultiple CVAs in the past, with residual right hemiparesis at present She was previously on Eliquis but this was switched over to Coumadin by neurology during her hospitalization at [facility] in October 2024 due to concerns for anticoagulation failure with Eliquis Continue Atorvastatin 80 mg QD Patient has not seen Neurology for follow-up since her last hospital admission and a referral was placed to neurology a few months ago States that she is now scheduled to see neurology for her initial visit next month (2) Hemiparesis affecting right side as late effect of cerebrovascular accident (CVA): Code(s): I69.351 - Hemiplegia and hemiparesis following cerebral infarction affecting right dominant side Category: Medical Plan: S/P physical therapy with some improvement of her hemiparesis - patient is currently able to ambulate on her own and no longer requires any assistive device (3) Epilepsy: Code(s): G40.909 - Epilepsy, unspecified, not intractable, without status epilepticus Category: Medical Qualifiers: Epilepsy type: unspecified Intractability: not intractable Status epilepticus: without status epilepticus Qualified Code(s): G40.909 - Epilepsy, unspecified, not intractable, without status epilepticus Plan: Continue Levetiracetam 500 mg BID She is now scheduled to see neurology next month for follow up (4) Pure hypercholesterolemia: Code(s): E78.00 - Pure hypercholesterolemia, unspecified Category: Medical Plan: Patient was not able to get her follow up labs done prior to her appointment today Reinforced low cholesterol diet Continue Atorvastatin 80 mg QD Will have patient recheck her labs and fasting lipids in 4 months for follow up - will just have patient use her current orders (updated) for her next lab draw (5) COPD (chronic obstructive pulmonary disease): Comment: Code(s): J44.9 - Chronic obstructive pulmonary disease, unspecified Category: Medical Qualifiers: COPD type: unspecified COPD Qualified Code(s): J44.9 - Chronic obstructive pulmonary disease, unspecified Plan: Better controlled currently Continue Symbicort 160-4.5 mcg 2 inhalations BID and Albuterol HFA 1 to 2 inhalations Q 6 hours PRN (6) GERD without esophagitis: Code(s): K21.9 - Gastro-esophageal reflux disease without esophagitis Category: Medical Plan: Dietary restrictions reinforced Continue Pantoprazole 40 mg QD (7) Restless leg syndrome: Code(s): G25.81 - Restless legs syndrome Category: Medical Plan: Continue Ropinirole 2 mg Q HS Patient uses Pramipexole 0.125 mg Q HS if Ropinirole is ineffective Follow up with neurology as scheduled (8) Right arm pain: Code(s): M79.601 - Pain in right arm Category: Medical Plan: (+) Hx of right distal radius ORIF, ulnar shaft I&D, and ulnar shaft ORIF on 07/01/24 Per request, due to her increasing right upper extremity pain, will refer patient back to orthopedics for further evaluation/management (9) Anemia: Code(s): D64.9 - Anemia, unspecified Category: Medical Qualifiers: Anemia type: iron deficiency Iron deficiency anemia type: inadequate dietary iron intake Qualified Code(s): D50.8 - Other iron deficiency anemias Plan: Continue Ferrous Sulfate 325 mg QD Will recheck her CBC in 4 months for follow up (10) Vitamin D deficiency: Code(s): E55.9 - Vitamin D deficiency, unspecified Category: Medical Plan: Continue Vitamin D3 1000 units QD (11) Constipation: Code(s): K59.00 - Constipation, unspecified Category: Medical Qualifiers: Constipation type: unspecified constipation type Qualified Code(s): K59.00 - Constipation, unspecified Plan: Patient is encouraged to increase her oral fluids and dietary fiber intake Continue Colace 100 mg BID (12) Mood disorder: Code(s): F39 - Unspecified mood [affective] disorder Category: Medical Plan: Continue Amitriptyline 10 mg Q HS and Sertraline 25 mg QD Follow up with psychiatry as scheduled (13) Underweight (BMI < 18.5): Code(s): R63.6 - Underweight; Z68.1 - Body mass index [BMI] 19.9 or less, adult Category: Medical Plan: Patient's weight appears to be stabilizing recently Continue Ensure Plus QD Plan Follow up in 4 months Orders: Referrals Orthopedics Referral M25.511 - Pain in right shoulder, M79.601 - Pain in right arm, Z87.81 - Personal history of (healed) traumatic fracture
--- OUTSIDE RECORDS SUMMARY | 2025-06-06 16:27 | XMS_ITS | Data Portability ---
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 Procedures Surgical History Date Name Laterality Status Provider Name and Address Organization Details Recorded Time 01/18/2024 FOL_DP completed МАИРНА TIJERINA MD [address] [place] [address], [place], [phone], [facility] 01/18/2024 14:22:46 Imaging Results None recorded. Procedure Notes None recorded. Medical Equipment None Reported. Allergies Allergen ID Allergen Name Allergen Category Reaction Reaction Severity Criticality Documentation Date Start Date Code Code System Note Provider Name and Address Organization Details Recorded Time 431051 aspirin medicatio n Not available Not available Not available 01/18/2024 1191 RxNorm Becka ruiz [facility] 14:01:27 [id number] lobster allergeni c extract food Not available Not available Not available 01/18/2024 99890 1 RxNorm Becka ruiz [facility] [...] % topical cream APPLY SMALL DOLLOP TO [facility] SITE 1 HR PRIOR TO APPT AND [...] Updated DateTime 01/18/2024 154.94 cm 13.2 kg/m2 05018.47 g Becka Sanchez [place] [facility] 01/18/2024 13:59:20 Social History Question Answer Notes LastModified by Organizat ion Details LastModified Time Tobacco Smoking Status Current Every Day Smoker МАРИНА TIJERINA MD [address] [place] [address], [phone], [place] - [facility] [...] Diagnosis SNOMED-CT Code Diagnosis ICD10 Code Diagnosis IMO Codes Diagnosis Note 3055 МАРИНА TIJERINA MD [facility] [address] [phone] 01/18/2024 13:07:48 01/18/2024 14:25:55 Malignant neoplasm of supraglottis 913940225 C32.1 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 83557105 C77.0 Health Concerns Section Related Observation LastModified by Organization Detai ls LastModified Time None Recorded Concern Status LastModified by Organization Details LastModified Time None Recorded Advance Directives Directive None Recorded Payers Insurance Date Sequence Insurance Name Policy Number Policy Salazar Covered Member ID Salazar Member ID Guarantor Name 01/31/2024 1 [employer] [facility] [place] Soraida Arroyo [id number] Soraida Arroyo 01/16/2024 1 [place] [facility] Soraida Arroyo [id number] Soraida Arroyo Notes Date Note Type Note Provider Name and Address Organization Details Recorded Time 01/18/2024 text/html ROS as noted in the HPI Malignant neoplasm of supraglottis [id number] by Dr Salomón Chen 10/24/23-10/28/23 Admitted to [facility] - transfer from [place].10/24/2023 CT neck with contrast at [place] radiology shows enhancing ulcerated nodular mucosal mass [...] squamous cell carcinoma p16 negative10/25/23 ENT at [facility] exam - results not available 11/27/2023 PET/CT at [facility] shows left epiglottis uptake extends from the midline to level of vocal cords. Level 2 lymph nodes measuring 18 mm and 15 mm on the left side. 1 cm spiculated nodule right upper lobe.12/14/[address] More12/19/20[address] onc[address] consult with Dr. Lorenzana12/26/2023 swallow therapy Aleah TIJERINA MD [address] [place] [address], [phone], [facility] - [facility] 01/18/2024 14:24:27 OBGyn Episode No OBEpisode recorded.
--- OUTSIDE RECORDS SUMMARY | 2025-06-06 16:28 | XMS_ITS | Clinical Summary ---
Author Organization [facility] Address [address] [place] [address] Care Team Providers Care Wire Twisting Machine Operator Name Role Phone Jennifer Flores MD Primary Care Provider [phone] Allergies Active Allergy Reactions Criticality Noted Date [...] Used Date Smoking Tobacco: Never Assessed [facility] Utilities Answer Date Recorded In the past 12 months has th e [employer], gas, oil, or water company threatened to [...] place to sleep or slept in a [place] (including now)? No 10/26/2023 Comments Unknown Sex [...] (Ages 21-65) 1983 Mammogram 2002 Colonoscopy 2007 RSV Vaccine 50 years and old er and Patients (1 - Risk 50-74 years 1-dose series) 02/10/2012 Zoster (Shingles) Vaccine (1 of 2) 02/10/2012 Influenza Vaccine 03/14/2025 COVID-19 Vaccine ( - 2023-2 5 season) 2025 Hepatitis B Vaccines Aged Out No long er eligible based on patient's age to complete this topic Insurance MEDICAID OUT OF STATE [facility] Advance Directives * Full Code (Latest Code Status on File) Date Activated Date Inactivated Comments 10/25/2023 12:42 AM Care Teams Wire Twisting Machine Operator Relationship Specialty Start Date End Date Jennifer Flores MD [address] [place] [id number] PCP - General Internal Medicine 10/26/23
--- OUTSIDE RECORDS SUMMARY | 2025-08-03 20:00 | XMS_ITS | Clinical Summary ---
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 ANTICOAGULAN TS Active 12-16 [...] 12-07 00:00: 00 06-05 23:59 :00 No [id number] Every 6 hours as needed for pain 2 tablet NEEDED 2 tablet NEEDED (route: oral) Med Classific ation: Analgesic , Anti-infl ammatory or Antipyret ic amitriptyli ne 10 mg tablet 12-07 00:00: 00 06-05 23:59 :00 No [id number] 10 mg BEDTIME 10 mg BEDTIME (route: oral) Med Classific ation: Central Nervous System Agents atorvastati n 80 mg tablet 12-07 00:00: 00 06-05 23:59 :00 No [id number] 80 mg BEDTIME 80 mg BEDTIME (route: oral) Med Classific ation: Cardiovas cular Therapy Agents docusate sodium 100 mg capsule 12-07 00:00: 00 06-05 23:59 :00 No [id number] 100 mg 2 TIMES DAILY 100 mg 2 TIMES DAILY (route: oral) Med Classific ation: Gastroint estinal Therapy Agents ferrous sulfate 325 mg (65 mg iron) tablet 12-07 00:00: 00 06-05 23:59 :00 No [id number] 325 mg DAILY 325 mg DAILY (route: oral) Med Classific ation: Electroly te Balance-N utritiona l Products Keppra 500 mg tablet 12-07 00:00: 06-05 23:59 :00 No [id number] 500 mg 2 TIMES DAILY 500 mg 2 TIMES DAILY (route: oral) Med Classific ation: Central Nervous System Agents multivitami n with minerals tablet 12-07 00:00: 00 06-05 23:59 :00 No [id number] Per instruc tions DAILY Per instructio ns DAILY (route: oral) Med Classific ation: Electroly te Balance-N utritiona l Products pantoprazol e 40 mg tablet,mary ellen yed release 12-07 00:00: 00 06-05 23:59 :00 No [id number] 40 mg DAILY 40 mg DAILY (route: oral) Med Classific ation: Gastroint estinal Therapy Agents pramipexole 0.125 mg tablet 12-07 00:00: 00 06-05 23:59 :00 No [id number] 0.125 mg NEEDED 0.125 mg NEEDED (route: oral) Med Classific ation: Central Nervous System Agents ropinirole 1 mg tablet 12-07 00:00: 00 06-05 23:59 :00 No [id number] 1 mg BEDTIME 1 mg BEDTIME (route: oral) Med Classific ation: Central Nervous System Agents sertraline 25 mg tablet 12-07 00:00: 00 06-05 23:59 :00 No [id number] 25 mg DAILY 25 mg DAILY (route: oral) Med Classific ation: Central Nervous System Agents Symbicort 160 mcg-4.5 mcg/actuati on HFA aerosol inhaler 12-07 00:00: 00 06-05 23:59 :00 No [id number] Per instruc tions 2 TIMES DAILY Per instructio ns 2 TIMES DAILY (route: inhalation ) Med Classific ation: Respirato ry Therapy Agents warfarin 2 mg tablet 12-07 00:00: 00 06-05 23:59 :00 No [id number] 2 mg DAILY 2 mg DAILY (route: oral) Med Classific ation: Hematolog ical Agents acetaminoph en 325 mg tablet 2024-08 00:00: 00 Yes [id number] 2 tablet NEEDED 2 tablet NEEDED (route: oral) Med Classific ation: Analgesic , Anti-infl ammatory or Antipyret ic amitriptyli ne 10 mg tablet 2024-08 00:00: 00 Yes [id number] 10 mg BEDTIME 10 mg BEDTIME (route: oral) Med Classific ation: Central Nervous System Agents atorvastati n 80 mg tablet 2024-08 00:00: 00 Yes [id number] 80 mg BEDTIME 80 mg BEDTIME (route: oral) Med Classific ation: Cardiovas cular Therapy Agents docusate sodium 100 mg capsule 2024-08 00:00: 00 Yes [id number] 100 mg 2 TIMES DAILY 100 mg 2 TIMES DAILY (route: oral) Med Classific ation: Gastroint estinal Therapy Agents ferrous sulfate 325 mg (65 mg iron) tablet 2024-08 00:00: 00 Yes [id number] 325 mg EVERY AM 325 mg EVERY AM (route: oral) Med Classific ation: Electroly te Balance-N utritiona l Products Keppra 500 mg tablet 2024-08 00:00: 00 Yes [id number] 500 mg 2 TIMES DAILY 500 mg 2 TIMES DAILY (route: oral) Med Classific ation: Central Nervous System Agents multivitami n with minerals tablet 2024-08 00:00: 00 Yes [id number] Per instruc tions EVERY AM Per instructio ns EVERY AM (route: oral) Med Classific ation: Electroly te Balance-N utritiona l Products pantoprazol e 40 mg tablet,mary ellen yed release 2024-08 00:00: 00 Yes [id number] 40 mg EVERY AM 40 mg EVERY AM (route: oral) Med Classific ation: Gastroint estinal Therapy Agents pramipexole 0.125 mg tablet 2024-08 00:00: 00 Yes [id number] 0.125 mg NEEDED 0.125 mg NEEDED (route: oral) Med Classific ation: Central Nervous System Agents ropinirole 1 mg tablet 2024-08 00:00: 00 Yes [id number] 1 mg BEDTIME 1 mg BEDTIME (route: oral) Med Classific ation: Central Nervous System Agents sertraline 25 mg tablet 2024-08 00:00: 00 Yes [id number] 25 mg EVERY AM 25 mg EVERY AM (route: oral) Med Classific ation: Central Nervous System Agents Symbicort 160 mcg-4.5 mcg/actuati on HFA aerosol inhaler 2024-08 00:00: 00 Yes [id number] Per instruc tions 2 TIMES DAILY Per instructio ns 2 TIMES DAILY (route: inhalation ) Med Classific ation: Respirato ry Therapy Agents warfarin 2 mg tablet 2024-08 00:00: 00 Yes [id number] 2 mg EVERY AM 2 mg EVER Y AM (route: oral) Med Classific ation: Hematolog ical Agents Vital Signs Vital Name Observation Time Observation Value Commen ts Temperature 2025-06-06 14:10:00.000 97.2 [degF] Pulse 2025-06-06 14:10:00.000 67 /min O2 Saturation (%) 2025-06-06 14:10:00.000 96 % Respirations 2025-06-06 14:10:00.000 16 /min Systolic Blood Pressure 2025-06-06 14:10:00.000 133 mm [Hg] Diastolic Blood Pressure 2025-06-06 14:10:00.000 [...] AWARENESS FOR SAFETY AND WILL NOTIFY CLINICAL OUTBOARD MOTOR MECHANIC AND PHYSICIAN/PROVIDER WITH ANY CHANGE IN CONDITION. [code = SKILLED NURSE WILL MAINTAIN SITUATIONAL AWARENESS FOR SAFETY AND WILL NOTIFY CLINICAL OUTBOARD MOTOR MECHANIC AND PHYSICIAN/PROVIDER WITH ANY CHANGE IN CONDITION.] [...] CARE WILL BE ESTABLISHED THAT MEETS PATIENT'S HALF-WAY NEEDS AND INCLUDES PATIENT GOAL FOR HOME [...] End Date/Time Encounter Type Admission Type Attending [facility] Facility Care Department Encounter ID Discharge Date Discharge Status Discharge Condition Discharge Reason Percent Goals Met 2025-06-06 00:00:00 2025-08-04 00:00:00 Outpatient RECERTIFIC ATION ASHLEIGH SAHNI [facility] [id number] 0.00
--- OUTSIDE RECORDS SUMMARY | 2025-08-03 20:00 | XMS_ITS | Clinical Summary ---
Author Organization Unknown Care Team Providers Care Pulley Man Name Role Phone JUANA MENDOZA, GAYR Unavailable Unavailable KAITLYN JIMENEZ, ASHLEIGH Unavailable Unavailable Payers Payer Name Policy Type Policy Number Effective Date Expira tion Date [facility] ([facility] [place] - [facility] [id number] MEDICAID [facility] [id number] Problems Condition Name Condition Details Condition Category [...] FOLLOWING CEREBRAL INFARCTION Active 12-16 00:00: 00 [facility] (CURRENT) USE OF ANTICOAGULAN TS Active 12-16 [...] 12-07 00:00: 00 06-05 23:59 :00 No [id number] Every 6 hours as needed for pain 2 tablet NEEDED 2 tablet NEEDED (route: oral) Med Classific ation: Analgesic , Anti-infl ammatory or Antipyret ic amitriptyli ne 10 mg tablet 12-07 00:00: 00 06-05 23:59 :00 No [id number] 10 mg BEDTIME 10 mg BEDTIME (route: oral) Med Classific ation: Central Nervous System Agents atorvastati n 80 mg tablet 12-07 00:00: 00 06-05 23:59 :00 No [id number] 80 mg BEDTIME 80 mg BEDTIME (route: oral) Med Classific ation: Cardiovas cular Therapy Agents docusate sodium 100 mg capsule 12-07 00:00: 00 06-05 23:59 :00 No [id number] 100 mg 2 TIMES DAILY 100 mg 2 TIMES DAILY (route: oral) Med Classific ation: Gastroint estinal Therapy Agents ferrous sulfate 325 mg (65 mg iron) tablet 12-07 00:00: 00 06-05 23:59 :00 No [id number] 325 mg DAILY 325 mg DAILY (route: oral) Med Classific ation: Electroly te Balance-N utritiona l Products Keppra 500 mg tablet 12-07 00:00: 06-05 23:59 :00 No [id number] 500 mg 2 TIMES DAILY 500 mg 2 TIMES DAILY (route: oral) Med Classific ation: Central Nervous System Agents multivitami n with minerals tablet 12-07 00:00: 00 06-05 23:59 :00 No [id number] Per instruc tions DAILY Per instructio ns DAILY (route: oral) Med Classific ation: Electroly te Balance-N utritiona l Products pantoprazol e 40 mg tablet,mary ellen yed release 12-07 00:00: 00 06-05 23:59 :00 No [id number] 40 mg DAILY 40 mg DAILY (route: oral) Med Classific ation: Gastroint estinal Therapy Agents pramipexole 0.125 mg tablet 12-07 00:00: 00 06-05 23:59 :00 No [id number] 0.125 mg NEEDED 0.125 mg NEEDED (route: oral) Med Classific ation: Central Nervous System Agents ropinirole 1 mg tablet 12-07 00:00: 00 06-05 23:59 :00 No [id number] 1 mg BEDTIME 1 mg BEDTIME (route: oral) Med Classific ation: Central Nervous System Agents sertraline 25 mg tablet 12-07 00:00: 00 06-05 23:59 :00 No [id number] 25 mg DAILY 25 mg DAILY (route: oral) Med Classific ation: Central Nervous System Agents Symbicort 160 mcg-4.5 mcg/actuati on HFA aerosol inhaler 12-07 00:00: 00 06-05 23:59 :00 No [id number] Per instruc tions 2 TIMES DAILY Per instructio ns 2 TIMES DAILY (route: inhalation ) Med Classific ation: Respirato ry Therapy Agents warfarin 2 mg tablet 12-07 00:00: 00 06-05 23:59 :00 No [id number] 2 mg DAILY 2 mg DAILY (route: oral) Med Classific ation: Hematolog ical Agents acetaminoph en 325 mg tablet 2024-08 00:00: 00 Yes [id number] 2 tablet NEEDED 2 tablet NEEDED (route: oral) Med Classific ation: Analgesic , Anti-infl ammatory or Antipyret ic amitriptyli ne 10 mg tablet 2024-08 00:00: 00 Yes [id number] 10 mg BEDTIME 10 mg BEDTIME (route: oral) Med Classific ation: Central Nervous System Agents atorvastati n 80 mg tablet 2024-08 00:00: 00 Yes [id number] 80 mg BEDTIME 80 mg BEDTIME (route: oral) Med Classific ation: Cardiovas cular Therapy Agents docusate sodium 100 mg capsule 2024-08 00:00: 00 Yes [id number] 100 mg 2 TIMES DAILY 100 mg 2 TIMES DAILY (route: oral) Med Classific ation: Gastroint estinal Therapy Agents ferrous sulfate 325 mg (65 mg iron) tablet 2024-08 00:00: 00 Yes [id number] 325 mg EVERY AM 325 mg EVERY AM (route: oral) Med Classific ation: Electroly te Balance-N utritiona l Products Keppra 500 mg tablet 2024-08 00:00: 00 Yes [id number] 500 mg 2 TIMES DAILY 500 mg 2 TIMES DAILY (route: oral) Med Classific ation: Central Nervous System Agents multivitami n with minerals tablet 2024-08 00:00: 00 Yes [id number] Per instruc tions EVERY AM Per instructio ns EVERY AM (route: oral) Med Classific ation: Electroly te Balance-N utritiona l Products pantoprazol e 40 mg tablet,mary ellen yed release 2024-08 00:00: 00 Yes [id number] 40 mg EVERY AM 40 mg EVERY AM (route: oral) Med Classific ation: Gastroint estinal Therapy Agents pramipexole 0.125 mg tablet 2024-08 00:00: 00 Yes [id number] 0.125 mg NEEDED 0.125 mg NEEDED (route: oral) Med Classific ation: Central Nervous System Agents ropinirole 1 mg tablet 2024-08 00:00: 00 Yes [id number] 1 mg BEDTIME 1 mg BEDTIME (route: oral) Med Classific ation: Central Nervous System Agents sertraline 25 mg tablet 2024-08 00:00: 00 Yes [id number] 25 mg EVERY AM 25 mg EVERY AM (route: oral) Med Classific ation: Central Nervous System Agents Symbicort 160 mcg-4.5 mcg/actuati on HFA aerosol inhaler 2024-08 00:00: 00 Yes [id number] Per instruc tions 2 TIMES DAILY Per instructio ns 2 TIMES DAILY (route: inhalation ) Med Classific ation: Respirato ry Therapy Agents warfarin 2 mg tablet 2024-08 00:00: 00 Yes [id number] 2 mg EVERY AM 2 mg EVER [...] AWARENESS FOR SAFETY AND WILL NOTIFY CLINICAL PRESS SUPERVISOR AND PHYSICIAN/PROVIDER WITH ANY CHANGE IN CONDITION. [code = SKILLED NURSE WILL MAINTAIN SITUATIONAL AWARENESS FOR SAFETY AND WILL NOTIFY CLINICAL PRESS SUPERVISOR AND PHYSICIAN/PROVIDER WITH ANY CHANGE IN [...] End Date/Time Encounter Type Admission Type Attending [facility] Facility Care Department Encounter ID Discharge Date Discharge Status Discharge Condition Discharge Reason Percent Goals Met 2025-06-06 00:00:00 2025-08-04 00:00:00 Outpatient RECERTIFIC ATION ASHLEIGH SAHNI [facility] [id number] 0.00
== END 2025-06-06 15:36 | disposition home or self-care (01) ==
LOC: HO.HMCH 14:43
PROVIDERS: PCP Internal Medicine; Visit Provider Internal Medicine
DX: I63.40 Cerebral infarction due to embolism of unspecified cerebral artery (principal); I69.351 Hemiplegia and hemiparesis following cerebral infarction affecting right dominant side; G40.909 Epilepsy, unspecified, not intractable, without status epilepticus; J44.9 Chronic obstructive pulmonary disease, unspecified; E78.00 Pure hypercholesterolemia, unspecified; K21.9 Gastro-esophageal reflux disease without esophagitis; G25.81 Restless legs syndrome; M79.601 Pain in right arm; D50.8 Other iron deficiency anemias; E55.9 Vitamin D deficiency, unspecified; K59.00 Constipation, unspecified; F39 Unspecified mood [affective] disorder

== ENCOUNTER → 2025-06-06 14:43 | Outpatient (BNVA) | payer OTHER, SELFPAY | PROVIDERS: PCP Internal Medicine; Visit Provider Internal Medicine | DX: M25.511 Pain in right shoulder (principal); M79.601 Pain in right arm; I69.351 Hemiplegia and hemiparesis following cerebral infarction affecting right dominant side; G40.909 Epilepsy, unspecified, not intractable, without status epilepticus; E78.00 Pure hypercholesterolemia, unspecified; J44.9 Chronic obstructive pulmonary disease, unspecified; K21.9 Gastro-esophageal reflux disease without esophagitis; G25.81 Restless legs syndrome; D50.8 Other iron deficiency anemias; E55.9 Vitamin D deficiency, unspecified; K59.00 Constipation, unspecified; F39 Unspecified mood [affective] disorder; R63.6 Underweight; Z68.1 Body mass index [BMI] 19.9 or less, adult | CPT/HCPCS: 99212 ==

== ENCOUNTER 2025-07-23 08:58 | Outpatient (AMB) | payer OTHER, SELFPAY ==
--- NOTE | 2025-07-23 09:36 | MHC.OFFVIS ---
Intake Visit Reasons: OV-RT Distal Radius CRPP 07/01/24 - w/ XR Intake Note: Soraida is a 64 year old right hand dominant female who presents to the office today for a PO fx R distal radius DOS 07/01/24. At her last visit with Dr. Angulo, patient was fitted into a velcro wrist brace and was advised to wear it with activities. Patient states she missed her last appointment due to cold weather. Today patient states she continues to have pain in her wrist, states she is limited ROM and is having pain radiating to her shoulder. Denies numbness or tingling. Accompanied by: CHAVO Kim Allergies aspirin Adverse Reaction (Mild, Verified 07/23/25 12:16) Vomiting HPI HPI OV-RT Distal Radius CRPP 07/01/24 - w/ XR: Details: Soraida is a 65 year old right hand dominant woman who presents with complaints of right wrist pain. She is seen today with a home health aid, who says she lives with family at home. She complains of pain & limited ROM of her right wrist & hand. She says her pain radiates up into her shoulder at times. She is limited in the use of her right hand. She denies any numbness or tingling She has a Hx of a stroke affecting her right side sometime 05/2024. She has been primarily using her left hand since her CVA, losing function with her right hand. Function of the left hand recovered well with therapy. Unfortunately, because she had a distal radius fracture and then was lost to care she never really got enough therapy for the right hand to regain function. [facility] Medical History (Updated 07/23/25 @ 09:55 by Primitivo Lloyd) Mood disorder GERD without esophagitis Pure hypercholesterolemia Hemiparesis affecting right side as late effect of cerebrovascular accident (CVA) Underweight (BMI < 18.5) Embolic stroke Embolic cerebral infarction Multiple cerebral infarctions Pulmonary nodule 1 cm or greater in diameter Squamous cell carcinoma of epiglottis Weight loss, unintentional Skin lesion of back Immunization declined Fracture of proximal end of fibula Contusion of leg, right Vaccination declined by patient Cervical lymphadenopathy Carotid stenosis, right Microcytic hypochromic anemia Left cervical lymphadenopathy Bilateral carotid bruits Smoker Idiopathic hypercalciuria Thyroid nodule Hx of angiography Vitamin D deficiency Goiter History of tachycardia GERD (gastroesophageal reflux disease) Gastritis Duodenitis Pyloric ulcer History of alcohol abuse Myopia of both eyes Papanicolaou smear declined Mammogram declined Smoker unmotivated to quit Restless leg syndrome Aortoiliac occlusive disease Tubular adenoma of colon Chronic Helicobacter pylori gastritis COPD (chronic obstructive pulmonary disease) Fibromyalgia Peripheral vascular disease Osteoporosis Surgical History S/P ORIF (open reduction internal fixation) fracture Hx of coronary angiogram History of removal of skin mole Hx of colonoscopy History of surgery on lower extremity Hx of foot surgery History of surgical removal of lesion (~10/28/21) History of lung biopsy (~04/2021) History of exploratory thoracotomy (~04/2018) History of tonsillectomy History of endarterectomy (~05/2020) History of ankle surgery (~11/2011) History of myringotomy History of appendectomy History of tubal ligation Family History Father Substance use disorder Mother Osteoporosis Substance use disorder Brother Substance use disorder Sister Substance use disorder Lung cancer Sister Substance use disorder Brother Substance use disorder Social History Household Members: None Housing: House Housing Other:: Rehab Are you a primary home health care coordinator to a significant other at home: No Do you presently have visiting nurse or other home services: No Alcohol intake: former Patient Tobacco Use Status: Current everyday Tobacco user Tobacco use type: Cigarette Cigarette Packs Per Day: 0.5 Cigarettes Per Day: 4 Years Smoked: 50+ e-Cigarette/Vaping Use: Never Used Second Hand Smoke Exposure: No Advance Directives Date on File: 12/12/23 service: No Current occupational status: disabled Current occupation: disabled Current occupational exposures/hazards: No Cognitive needs: No Hearing needs: No Vision needs: Yes Review of Systems Const All systems reviewed & are unremarkable except as noted in HPI and below Physical Exam Const General: no acute distress and alert Orientation/consciousness: patient oriented x3 Neuro General: patient oriented x3 Extrem Other: Evaluation of Right Upper Extremity: The patient is alert, oriented, and in no acute distress Neuro: Median, Ulnar, Radial nerves motor and sensory intact and sensation is normal to the tips of all digits Vascular: Cap refill brisk ROM: She has spacticity in the right upper extremity with elbow & wrist flexion, & extension of digits of her right hand With encouragement & assistance she could make a closed fist, but could not hold it closed very well She could bring her wrist to neutral extension, and is keeping it flexed to ~30 degrees DRUJ stable, fracture sites completely nontender. K-wire in the ulna not palpable Fracture site non-tender Radiographs: 3 views of the left wrist were taken and viewed by me today in clinic. They show a well healed distal radius & ulnar shaft fracture with satisfactory fracture alignment, position of all implants with no complications. The K-wire remains in place in the ulnar shaft. Psych Appearance: grossly normal Affect: normal affect Attitude: cooperative Results AMB INR Fingerstick AMB INR Fingerstick 4.8 Last Edit by Page Ontiveros RN on 07/23/25 12:17 Assessment & Plan Assessment & Plan (1) Right wrist pain: Code(s): M25.531 - Pain in right wrist Category: Medical (2) Spasticity as late effect of cerebrovascular accident (CVA): Code(s): I69.398 - Other sequelae of cerebral infarction; R25.2 - Cramp and spasm Category: Medical (3) Stiffness of right wrist joint: Code(s): M25.631 - Stiffness of right wrist, not elsewhere classified Category: Medical (4) Fibromyalgia: Code(s): M79.7 - Fibromyalgia Category: Medical (5) Hemiparesis affecting right side as late effect of cerebrovascular accident (CVA): Code(s): I69.351 - Hemiplegia and hemiparesis following cerebral infarction affecting right dominant side Category: Medical (6) Smoker unmotivated to quit: Comment: Patient continues to smoke, half pack of cigarettes a day, she is not well motivated to quit smoking completely. Risks of continued smoking explained to her. Code(s): F17.200 - Nicotine dependence, unspecified, uncomplicated Category: Social Hx Plan Assessment & Plan: 1. Right wrist pain & upper extremity spasticity Possibly secondary to disuse with a Hx of CVA in 05/2024 I educated her about this condition I discussed treatment options I ordered OT hand therapy to work on stretching, strengthening, and normalizing function She will work on ROM exercises She will discontinue any wrist splint at this time She will follow up prn 2. Right distal radius fracture, S/P ORIF 3. Right ulnar shaft fracture, S/P CRPP DOS: 07/01/24 Well healed at this time Scribed for Kriss Angulo MD by Primitivo Lloyd, medical reimbursement specialist, on 07/23/25 at 9:50 AM, EST. Orders: Orders XR hand RT min 3V Today M79.641 - Pain in right hand OT Evaluation and Treatment Today I69.398 - Other sequelae of cerebral infarction, M25.631 - Stiffness of right wrist, not elsewhere classified, M79.7 - Fibromyalgia, R25.2 - Cramp and spasm Coding Level of Care Code Est Pt Level 3 (02197) Diagnoses Right wrist pain M25.531 Spasticity as late effect of cerebrovascular accident (CVA) I69.398; R25.2 Stiffness of right wrist joint M25.631 Fibromyalgia M79.7 Hemiparesis affecting right side as late effect of cerebrovascular accident (CVA) I69.351 Smoker unmotivated to quit F17.200
== END 2025-07-23 09:57 | disposition home or self-care (01) ==
LOC: HO.HOS 08:59
PROVIDERS: PCP Internal Medicine; Visit Provider Orthopaedic Surgery
DX: M25.531 Pain in right wrist (principal); I69.398 Other sequelae of cerebral infarction; R25.2 Cramp and spasm; M25.631 Stiffness of right wrist, not elsewhere classified; M79.7 Fibromyalgia; I69.351 Hemiplegia and hemiparesis following cerebral infarction affecting right dominant side; F17.200 Nicotine dependence, unspecified, uncomplicated
CPT/HCPCS: 99213

== ENCOUNTER → 2025-07-23 08:58 | Outpatient (BNVA) | payer OTHER, SELFPAY | PROVIDERS: PCP Internal Medicine; Visit Provider Orthopaedic Surgery | DX: M25.531 Pain in right wrist (principal); I69.398 Other sequelae of cerebral infarction; R25.2 Cramp and spasm; M25.631 Stiffness of right wrist, not elsewhere classified; M79.7 Fibromyalgia; I69.351 Hemiplegia and hemiparesis following cerebral infarction affecting right dominant side; F17.210 Nicotine dependence, cigarettes, uncomplicated | CPT/HCPCS: 99212 ==

== ENCOUNTER 2025-07-23 09:00 | Outpatient (REF) | payer OTHER, SELFPAY ==
--- OUTSIDE RECORDS SUMMARY | 2025-07-17 11:21 | XMS_ITS | Clinical Summary ---
Author Organization [facility] Address [address] [place] [address] Care Team Providers Care Bulk Picker Name Role Phone Jennifer Flores MD Primary Care Provider [phone]- [phone] Allergies Active Allergy Reactions Criticality Noted Date [...] Years Used Date Smoking Tobacco: Never Assessed [facility] Utilities Answer Date Recorded In the past 12 months has th e [employer], gas, oil, or water company threatened to [...] place to sleep or slept in a [facility]p (including now)? No 10/26/2023 Comments Unknown Sex [...] this topic Insurance MEDICAID OUT OF STATE [facility] Advance Directives * Full Code (Latest Code Status on File) Date Activated Date Inactivated Comments 10/25/2023 12:42 AM Care Teams Bulk Picker Relationship Specialty Start Date End Date Jennifer Flores MD [address] [place] [id number] PCP - General Internal Medicine 10/26/23
--- OUTSIDE RECORDS SUMMARY | 2025-07-17 11:21 | XMS_ITS | Data Portability ---
Author Organization [place] - [facility], Allergy Address [address] [place] [address] Care Team Providers Care Fax Machine Operator Name Role Phone CHRISTOPHER HDZ Primary Care Provider [phone] DEVON ANNA Primary Care Provider [phone] ALVARO MORE OTHER DORENE LORENZANA Referring Provider [phone] ELANA MCCURDY Primary Care Provider Assessment Encounter [...] Details Recorded Time Malignant neoplasm of supraglottis 407267545 Active 2023 МАРИНА TIJERINA MD [address] [address], [place], [phone], [facility] 4 14:11:54 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 Procedures Surgical History Date Name Laterality Status Provider Name and Address Organization Details Recorded Time 01/18/2024 FOL_DP completed МАРИНА TIJERINA MD [address] [place] [address], [place], [phone], [facility] 01/18/2024 14:22:46 Imaging Results None recorded. Procedure Notes None recorded. Medical Equipment None Reported. Allergies Allergen ID Allergen Name Allergen Category Reaction Reaction Severity Criticality Documentation Date Start Date Code Code System Note Provider Name and Address Organization Details Recorded Time 252621 aspirin medicatio n Not available Not available Not available 01/18/2024 1191 RxNorm Becka ruiz [facility] 14:01:27 076641 lobster allergeni c extract food Not available Not available Not available 01/18/2024 79194 1 RxNorm Becka ruiz [facility] 14:01:39 Medications Name Sig Start Date [...] % topical cream APPLY SMALL DOLLOP TO [facility] SITE 1 HR PRIOR TO APPT [...] Updated DateTime 01/18/2024 154.94 cm 13.2 kg/m2 23225.47 g Becka Sanchez [place] - [facility] 01/18/2024 13:59:20 Social History Question Answer Notes LastModified by Organizat ion Details LastModified Time Tobacco Smoking Status Current Every Day Smoker МАРИНА TIJERINA MD [address] [place] [address], [phone], [place] - [facility] 01/18/2024 14:06:41 How Much Tobacco Do [...] Note 3055 МАРИНА TIJERINA MD [facility] [address] [address] 01/18/2024 13:07:48 01/18/2024 14:25:55 Malignant neoplasm of supraglottis 985100478 C32.1 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 13239946 C77.0 Health Concerns Section Related Observation LastModified by Organization Detai ls LastModified Time None Recorded Concern Status LastModified by Organization Details LastModified Time None Recorded Advance Directives Directive None Recorded Payers Insurance Date Sequence Insurance Name Policy Number Policy Salazar Covered Member ID Salazar Member ID Guarantor Name 01/31/2024 1 [facility] [employer] Soraida Arroyo [id number] Soraida Arroyo 01/16/2024 1 [place] [facility] Soraida Arroyo [id number] Soraida Arroyo Notes Date Note Type Note Provider Name and Address Organization Details Recorded Time 01/18/2024 text/html ROS as noted in the HPI Malignant neoplasm of supraglottis [id number] by Dr Salomón Chen 10/24/23-10/28/[address] [facility] - transfer from [place].10/24/2023 CT neck with contrast at [place] radiology shows enhancing ulcerated nodular mucosal mass [...] squamous cell carcinoma p16 negative10/25/23 ENT at [facility] exam - results not available 11/27/2023 PET/CT at [place] MRI shows left epiglottis uptake extends from the midline to level of vocal cords. Level 2 lymph nodes measuring 18 mm and 15 mm on the left side. 1 cm spiculated nodule right upper lobe.12/14/20[address] radiation onc[address] with Dr. More12/19/2023 medical oncology consult with Dr. Lorenzana12/26/2023 swallow therapy Aleah TIJERINA MD [address] [place] [address], [phone], [facility] - [facility] 01/18/2024 14:24:27 OBGyn Episode No OBEpisode recorded.
--- NOTE | ~2025-07-23 | XR_ITS ---
EXAMINATION: XR HAND 3 OR MORE VIEWS RIGHT HISTORY: M79.641 - Pain in right hand COMPARISON: Comparison is made with the prior examination of the right wrist dated 06/29/2024. FINDINGS: Six views of the right hand are submitted. The examination is limited by difficulty in patient positioning. The bones are osteopenic. The patient is status post internal fixation of the previously seen fractures of the distal radius and ulna with a sideplate and multiple orthopedic screws along the radius and a K wire in the distal ulna. The fractures have healed. No acute fracture is seen. There is moderate space narrowing involving the DIP and PIP joints. The soft tissues are unremarkable. XR/XR hand RT min 3V IMPRESSION: Osteopenia. Limited examination due to difficulty in patient positioning. Moderate narrowing of the DIP and PIP joints. Electronically signed by: Scout Hampton MD 07/23/2025 09:29 AM MANUEL
--- OUTSIDE RECORDS SUMMARY | 2025-07-28 21:45 | XMS_ITS | Clinical Summary ---
Author Organization [facility] Address [address] [place] [address] Care Team Providers Care Timber Rider Name Role Phone Jennifer Flores MD Primary Care Provider [phone] Allergies Active Allergy Reactions Criticality Noted Date [...] Years Used Date Smoking Tobacco: Never Assessed [facility] Utilities Answer Date Recorded In the past 12 months has th e Lopoly, gas, oil, or water company threatened to [...] 2) 02/10/2012 Influenza Vaccine 03/14/2025 COVID-19 Vaccine (1 - 2024-2 6 season) 2025 Hepatitis B Vaccines Aged Out No long er eligible based on patient's age to complete this topic Insurance MEDICAID OUT OF [id number] Advance Directives * Full Code (Latest Code Status on File) Date Activated Date Inactivated Comments 10/25/2023 12:42 AM Care Teams Timber Rider Relationship Specialty Start Date End Date Jennifer Flores MD [address] [place] [id number] PCP - General Internal Medicine 10/26/23
--- OUTSIDE RECORDS SUMMARY | 2025-07-28 21:45 | XMS_ITS | Data Portability ---
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 Procedures Surgical History Date Name Laterality Status Provider Name and Address Organization Details Recorded Time 01/18/2024 FOL_DP completed МАРИНА TIJERINA MD [address] [place] [address], [place], [phone], [facility] 01/18/2024 14:22:46 Imaging Results None recorded. Procedure Notes None recorded. Medical Equipment None Reported. Allergies Allergen ID Allergen Name Allergen Category Reaction Reaction Severity Criticality Documentation Date Start Date Code Code System Note Provider Name and Address Organization Details Recorded Time 025052 aspirin medicatio n Not available Not available Not available 01/18/2024 1191 RxNorm Becka ruiz [facility] 14:01:27 884581 lobster allergeni c extract food Not available Not available Not available 01/18/2024 33074 1 RxNorm Becka ruiz [facility] 14:01:39 Medications Name Sig Start Date [...] % topical cream APPLY SMALL DOLLOP TO [facility] SITE 1 HR PRIOR TO [...] Updated DateTime 01/18/2024 154.94 cm 13.2 kg/m2 52641.47 g Becka Sanchez [place] - [facility] 01/18/2024 13:59:20 Social History Question Answer Notes LastModified by Organizat ion Details LastModified Time Tobacco Smoking Status Current Every Day Smoker МАРИНА TIJERINA MD [address] [place] [address], [phone], [place] - [facility] 01/18/2024 14:06:41 How Much Tobacco Do [...] Note 3055 МАРИНА TIJERINA MD [facility] [address] [address] 01/18/2024 13:07:48 01/18/2024 14:25:55 Malignant neoplasm of supraglottis 849067255 C32.1 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 74130351 C77.0 Health Concerns Section Related Observation LastModified by Organization Detai ls LastModified Time None Recorded Concern Status LastModified by Organization Details LastModified Time None Recorded Advance Directives Directive None Recorded Payers Insurance Date Sequence Insurance Name Policy Number Policy Salazar Covered Member ID Salazar Member ID Guarantor Name 01/31/2024 1 [employer] [facility] [facility] (HMO) [place] Soraida Arroyo [id number] Soraida Arroyo 01/16/2024 1 [place] [facility] Soraida Arroyo [id number] Soraida Arroyo Notes Date Note Type Note Provider Name and Address Organization Details Recorded Time 01/18/2024 text/html ROS as noted in the HPI Malignant neoplasm of supraglottis [id number] by Dr Salomón Chen 10/24/23-10/28/23 Admitted to [facility] - transfer from [place].10/24/2023 CT neck with contrast at [place] radiology shows enhancing ulcerated nodular mucosal mass [...] squamous cell carcinoma p16 negative10/25/[address] [facility] exam - results not available 11/27/2023 PET/CT at [place] MRI shows left epiglottis uptake extends from the midline to level of vocal cords. Level 2 lymph nodes measuring 18 mm and 15 mm on the left side. 1 cm spiculated nodule right upper lobe.12/14/2023 radiation oncology consult with Dr. More12/19/2023 medical oncology consult with Dr. Lorenzana12/26/2023 swallow therapy Aleah TIJERINA MD [address] [place] [address], [phone], [facility] - [facility] 01/18/2024 14:24:27 OBGyn Episode No OBEpisode recorded.
--- OUTSIDE RECORDS SUMMARY | 2025-08-03 19:00 | XMS_ITS | Clinical Summary ---
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 Active 12-16 [...] en 325 mg tablet 12-07 00:00: 00 06-05 23:59 :00 No [id number] Every 6 hours as needed for pain 2 tablet NEEDED 2 tablet NEEDED (route: oral) Med Classific ation: Analgesic , Anti-infl ammatory or Antipyret ic amitriptyli ne 10 mg tablet 12-07 00:00: 00 06-05 23:59 :00 No [id number] 10 mg BEDTIME 10 mg BEDTIME (route: oral) Med Classific ation: Central Nervous System Agents atorvastati n 80 mg tablet 12-07 00:00: 00 06-05 23:59 :00 No [id number] 80 mg BEDTIME 80 mg BEDTIME (route: oral) Med Classific ation: Cardiovas cular Therapy Agents docusate sodium 100 mg capsule 12-07 00:00: 00 06-05 23:59 :00 No [id number] 100 mg 2 TIMES DAILY 100 mg 2 TIMES DAILY (route: oral) Med Classific ation: Gastroint estinal Therapy Agents ferrous sulfate 325 mg (65 mg iron) tablet 12-07 00:00: 00 06-05 23:59 :00 No [id number] 325 mg DAILY 325 mg DAILY (route: oral) Med Classific ation: Electroly te Balance-N utritiona l Products Keppra 500 mg tablet 12-07 00:00: 06-05 23:59 :00 No [id number] 500 mg 2 TIMES DAILY 500 mg 2 TIMES DAILY (route: oral) Med Classific ation: Central Nervous System Agents multivitami n with minerals tablet 12-07 00:00: 00 06-05 23:59 :00 No [id number] Per instruc tions DAILY Per instructio ns DAILY (route: oral) Med Classific ation: Electroly te Balance-N utritiona l Products pantoprazol e 40 mg tablet,mary ellen yed release 12-07 00:00: 00 06-05 23:59 :00 No [id number] 40 mg DAILY 40 mg DAILY (route: oral) Med Classific ation: Gastroint estinal Therapy Agents pramipexole 0.125 mg tablet 12-07 00:00: 00 06-05 23:59 :00 No [id number] 0.125 mg NEEDED 0.125 mg NEEDED (route: oral) Med Classific ation: Central Nervous System Agents ropinirole 1 mg tablet 12-07 00:00: 00 06-05 23:59 :00 No [id number] 1 mg BEDTIME 1 mg BEDTIME (route: oral) Med Classific ation: Central Nervous System Agents sertraline 25 mg tablet 12-07 00:00: 00 06-05 23:59 :00 No [id number] 25 mg DAILY 25 mg DAILY (route: oral) Med Classific ation: Central Nervous System Agents Symbicort 160 mcg-4.5 mcg/actuati on HFA aerosol inhaler 12-07 00:00: 00 06-05 23:59 :00 No [id number] Per instruc tions 2 TIMES DAILY Per instructio ns 2 TIMES DAILY (route: inhalation ) Med Classific ation: Respirato ry Therapy Agents warfarin 2 mg tablet 12-07 00:00: 00 06-05 23:59 :00 No [id number] 2 mg DAILY 2 mg DAILY (route: oral) Med Classific ation: Hematolog ical Agents acetaminoph en 325 mg tablet 2024-08 00:00: 00 Yes [id number] 2 tablet NEEDED 2 tablet NEEDED (route: oral) Med Classific ation: Analgesic , Anti-infl ammatory or Antipyret ic amitriptyli ne 10 mg tablet 2024-08 00:00: 00 Yes [id number] 10 mg BEDTIME 10 mg BEDTIME (route: oral) Med Classific ation: Central Nervous System Agents atorvastati n 80 mg tablet 2024-08 00:00: 00 Yes [id number] 80 mg BEDTIME 80 mg BEDTIME (route: oral) Med Classific ation: Cardiovas cular Therapy Agents docusate sodium 100 mg capsule 2024-08 00:00: 00 Yes [id number] 100 mg 2 TIMES DAILY 100 mg 2 TIMES DAILY (route: oral) Med Classific ation: Gastroint estinal Therapy Agents ferrous sulfate 325 mg (65 mg iron) tablet 2024-08 00:00: 00 Yes [id number] 325 mg EVERY AM 325 mg EVERY AM (route: oral) Med Classific ation: Electroly te Balance-N utritiona l Products Keppra 500 mg tablet 2024-08 00:00: 00 Yes [id number] 500 mg 2 TIMES DAILY 500 mg 2 TIMES DAILY (route: oral) Med Classific ation: Central Nervous System Agents multivitami n with minerals tablet 2024-08 00:00: 00 Yes [id number] Per instruc tions EVERY AM Per instructio ns EVERY AM (route: oral) Med Classific ation: Electroly te Balance-N utritiona l Products pantoprazol e 40 mg tablet,mary ellen yed release 2024-08 00:00: 00 Yes [id number] 40 mg EVERY AM 40 mg EVERY AM (route: oral) Med Classific ation: Gastroint estinal Therapy Agents pramipexole 0.125 mg tablet 2024-08 00:00: 00 Yes [id number] 0.125 mg NEEDED 0.125 mg NEEDED (route: oral) Med Classific ation: Central Nervous System Agents ropinirole 1 mg tablet 2024-08 00:00: 00 Yes [id number] 1 mg BEDTIME 1 mg BEDTIME (route: oral) Med Classific ation: Central Nervous System Agents sertraline 25 mg tablet 2024-08 00:00: 00 Yes [id number] 25 mg EVERY AM 25 mg EVERY AM (route: oral) Med Classific ation: Central Nervous System Agents Symbicort 160 mcg-4.5 mcg/actuati on HFA aerosol inhaler 2024-08 00:00: 00 Yes [id number] Per instruc tions 2 TIMES DAILY Per instructio ns 2 TIMES DAILY (route: inhalation ) Med Classific ation: Respirato ry Therapy Agents warfarin 2 mg tablet 2024-08 00:00: 00 Yes [id number] 2 mg EVERY AM 2 mg EVER Y AM (route: oral) Med Classific ation: Hematolog ical Agents Vital Signs Vital Name Observation Time Observation Value Commen ts Temperature 2025-07-23 11:20:00.000 97.6 [degF] Temperature 2025-07-22 11:50:00.000 97.5 [degF] Temperature 2025-07-18 11:15:00.000 97.7 [degF] Temperature 2025-07-14 11:46:00.000 97.8 [degF] Temperature 2025-07-11 11:11:00.000 97.2 [degF] Temperature 2025-07-01 12:05:00.000 97.2 [degF] Temperature 2025-06-28 12:55:00.000 97.5 [degF] Temperature 2025-06-24 11:45:00.000 97.3 [degF] Temperature 2025-06-20 15:55:00.000 97.1 [degF] Temperature 2025-06-17 11:25:00.000 97.6 [degF] Temperature 2025-06-13 15:50:00.000 96.8 [degF] Temperature 2025-06-10 11:22:00.000 96.8 [degF] Temperature 2025-06-06 14:10:00.000 97.2 [degF] Pulse 2025-07-23 11:20:00.000 76 /min Pulse 2025-07-22 11:50:00.000 76 /min Pulse 2025-07-18 11:15:00.000 82 /min Pulse 2025-07-14 11:46:00.000 84 /min Pulse 2025-07-11 11:11:00.000 84 /min Pulse 2025-07-08 11:20:00.000 82 /min Pulse 2025-07-03 14:21:00.000 73 /min Pulse 2025-07-01 12:05:00.000 80 /min Pulse 2025-06-28 12:55:00.000 76 /min Pulse 2025-06-24 11:45:00.000 80 /min Pulse 2025-06-20 15:55:00.000 88 /min Pulse 2025-06-17 11:25:00.000 68 /min Pulse 2025-06-13 15:50:00.000 72 /min Pulse 2025-06-10 11:22:00.000 74 /min Pulse 2025-06-06 14:10:00.000 67 /min O2 Saturation (%) 2025-07-23 11:20:00.000 97 % O2 Saturation (%) 2025-07-22 11:50:00.000 97 % O2 Saturation (%) 2025-07-18 11:15:00.000 97 % O2 Saturation (%) 2025-07-14 11:46:00.000 97 % O2 Saturation (%) 2025-07-11 11:25:00.000 96 % O2 Saturation (%) 2025-07-08 11:20:00.000 97 % O2 Saturation (%) 2025-07-03 14:21:00.000 97 % O2 Saturation (%) 2025-07-01 12:05:00.000 96 % O2 Saturation (%) 2025-06-28 12:55:00.000 96 % O2 Saturation (%) 2025-06-24 11:45:00.000 97 % O2 Saturation (%) 2025-06-20 15:55:00.000 97 % O2 Saturation (%) 2025-06-17 11:25:00.000 96 % O2 Saturation (%) 2025-06-13 15:50:00.000 97 % O2 Saturation (%) 2025-06-10 11:22:00.000 96 % O2 Saturation (%) 2025-06-06 14:10:00.000 96 % Respirations 2025-07-23 11:20:00.000 16 /min Respirations 2025-07-22 11:50:00.000 16 /min Respirations 2025-07-18 11:15:00.000 16 /min Respirations 2025-07-14 11:46:00.000 16 /min Respirations 2025-07-11 11:11:00.000 16 /min Respirations 2025-07-08 11:20:00.000 16 /min Respirations 2025-07-03 14:21:00.000 16 /min Respirations 2025-07-01 12:05:00.000 17 /min Respirations 2025-06-28 12:55:00.000 16 /min Respirations 2025-06-24 11:45:00.000 16 /min Respirations 2025-06-20 15:55:00.000 16 /min Respirations 2025-06-17 11:25:00.000 17 /min Respirations 2025-06-13 15:50:00.000 16 /min Respirations 2025-06-10 11:22:00.000 16 /min Respirations 2025-06-06 14:10:00.000 16 /min Weight (lbs) 2025-06-10 11:22:00.000 68 [lb_av] Systolic Blood Pressure 2025-07-23 11:20:00.000 118 mm [Hg] Systolic Blood Pressure 2025-07-22 11:50:00.000 114 mm [Hg] Systolic Blood Pressure 2025-07-18 11:15:00.000 125 mm [Hg] Systolic Blood Pressure 2025-07-14 11:46:00.000 124 mm [Hg] Systolic Blood Pressure 2025-07-11 11:11:00.000 132 mm [Hg] Systolic Blood Pressure 2025-07-08 11:20:00.000 128 mm [Hg] Systolic Blood Pressure 2025-07-03 14:21:00.000 142 mm [Hg] Systolic Blood Pressure 2025-07-01 12:05:00.000 118 mm [Hg] Systolic Blood Pressure 2025-06-28 12:55:00.000 128 mm [Hg] Systolic Blood Pressure 2025-06-24 11:45:00.000 126 mm [Hg] Systolic Blood Pressure 2025-06-20 15:55:00.000 118 mm [Hg] Systolic Blood Pressure 2025-06-17 11:25:00.000 122 mm [Hg] Systolic Blood Pressure 2025-06-13 15:50:00.000 119 mm [Hg] Systolic Blood Pressure 2025-06-10 11:22:00.000 128 mm [Hg] Systolic Blood Pressure 2025-06-06 14:10:00.000 133 mm [Hg] Diastolic Blood Pressure 2025-07-23 11:20:00.000 72 mm [Hg] Diastolic Blood Pressure 2025-07-22 11:50:00.000 72 mm [Hg] Diastolic Blood Pressure 2025-07-18 11:15:00.000 80 mm [Hg] Diastolic Blood Pressure 2025-07-14 11:46:00.000 76 mm [Hg] Diastolic Blood Pressure 2025-07-11 11:11:00.000 76 mm [Hg] Diastolic Blood Pressure 2025-07-08 11:20:00.000 74 mm [Hg] Diastolic Blood Pressure 2025-07-03 14:21:00.000 80 mm [Hg] Diastolic Blood Pressure 2025-07-01 12:05:00.000 72 mm [Hg] Diastolic Blood Pressure 2025-06-28 12:55:00.000 80 mm [Hg] Diastolic Blood Pressure 2025-06-24 11:45:00.000 74 mm [Hg] Diastolic Blood Pressure 2025-06-20 15:55:00.000 70 mm [Hg] Diastolic Blood Pressure 2025-06-17 11:25:00.000 74 mm [Hg] Diastolic Blood Pressure 2025-06-13 15:50:00.000 87 mm [Hg] Diastolic Blood Pressure 2025-06-10 11:22:00.000 70 mm [Hg] Diastolic Blood Pressure 2025-06-06 14:10:00.000 84 mm [Hg] Plan of Treatment Planned Activity Planned Date Details Comments Future Scheduled Test SKILLED NU RSE TO EVALUATE PATIENT, IDENTIFY PRIMARY AND CO-MORBID CONDITIONS CODED PER CODING GUIDELINES, AND DEVELOP PATIENT SPECIFIC PLAN OF CARE THAT INCLUDES PATIENT GOAL FOR HOME HEALTH. PLAN OF CARE TO INCLUDE 3 PRN VISIT(S) FOR OASIS DATA COLLECTION/COMPREHENSIVE ASSESSMENT AT TIMEPOINTS PER FEDERAL REGULATIONS. THIS INCLUDES VISITS FOR JAYNE, RECERT, SCIC, AND/OR DC. [code = SKILLED NURSE TO EVALUATE PATIENT, IDENTIFY PRIMARY AND CO-MORBID CONDITIONS CODED PER CODING GUIDELINES, AND DEVELOP PATIENT SPECIFIC PLAN OF CARE THAT INCLUDES PATIENT GOAL FOR HOME HEALTH. PLAN OF CARE TO INCLUDE 3 PRN VISIT(S) FOR OASIS DATA COLLECTION/COMPREHENSIVE ASSESSMENT AT TIMEPOINTS PER FEDERAL REGULATIONS. THIS INCLUDES VISITS FOR JAYNE, RECERT, SCIC, AND/OR DC.] Future Scheduled Test SKILLED NU RSE TO PRE-POUR MEDICATION PER MEDICATION LIST TWICE WEEKLY. [code = SKILLED NURSE TO PRE-POUR MEDICATION PER MEDICATION LIST TWICE WEEKLY.] Future Scheduled Test SKILLED NU RSE FOR O/A OF NEUROCOGNITIVE AND BEHAVIORAL STATUS [code = SKILLED NURSE FOR O/A OF NEUROCOGNITIVE AND BEHAVIORAL STATUS] Future Scheduled Test SKILLED NU RSE FOR O/A OF GENERAL HEALTH STATUS OF PAIN, CARDIAC, RESPIRATORY, GASTROINTESTINAL, GENITOURINARY, SKIN, NEUROLOGIC, ENDOCRINE SYSTEMS TO IDENTIFY CHANGES ASSOCIATED WITH EXACERBATION FOR EARLY INTERVENTION OF COMPLICATIONS TWICE WEEKLY. [code = SKILLED NURSE FOR O/A OF GENERAL HEALTH STATUS OF PAIN, CARDIAC, RESPIRATORY, GASTROINTESTINAL, GENITOURINARY, SKIN, NEUROLOGIC, ENDOCRINE SYSTEMS TO IDENTIFY CHANGES ASSOCIATED WITH EXACERBATION FOR EARLY INTERVENTION OF COMPLICATIONS TWICE WEEKLY.] Future Scheduled Test SKILLED NU RSE [...] Scheduled Test SKILLED NU RSE FOR O/A TO IDENTIFY CHANGES ASSOCIATED WITH COGNITIVE IMPAIRMENT AND PROVIDE INSTRUCTION RELATED TO SAFETY MEASURES TO PREVENT INJURY SECONDARY TO IMPAIRED NEUROLOGICAL STATUS. SKILLED NURSE TO REPORT SIGNIFICANT CHANGES OF NEUROLOGIC STATUS TO PHYSICIAN FOR EARLY INTERVENTION. [code = SKILLED NURSE FOR O/A TO IDENTIFY CHANGES ASSOCIATED WITH COGNITIVE IMPAIRMENT AND PROVIDE INSTRUCTION RELATED TO SAFETY MEASURES TO PREVENT INJURY SECONDARY TO IMPAIRED NEUROLOGICAL STATUS. SKILLED NURSE TO REPORT SIGNIFICANT CHANGES OF NEUROLOGIC STATUS TO PHYSICIAN FOR EARLY INTERVENTION.] Future Scheduled Test SKILLED NU RSE TO INSTRUCT PATIENT/CAREGIVER ON COPD TO INCLUDE TEACHING AND SELF-MANAGEMENT RELATED TO COPD DISEASE PROCESS, SIGNS AND SYMPTOMS, AND COMPLICATIONS. [code = SKILLED NURSE TO INSTRUCT PATIENT/CAREGIVER ON COPD TO INCLUDE TEACHING AND SELF-MANAGEMENT RELATED TO COPD DISEASE PROCESS, SIGNS AND SYMPTOMS, AND COMPLICATIONS.] Future Scheduled Test SKILLED NU RSE TO ASSESS PATIENT S PSYCHOSOCIAL STATUS TO IDENTIFY POTENTIAL ISSUES THAT MAY COMPLICATE THE PROVISION OF THE PLAN OF CARE INCLUDING THE PATIENT S ABILITY TO ACCESS COMMUNITY RESOURCES AND PSYCHOSOCIAL SUPPORT SERVICES. [code = SKILLED NURSE TO ASSESS PATIENT S PSYCHOSOCIAL STATUS TO IDENTIFY POTENTIAL ISSUES THAT MAY COMPLICATE THE PROVISION OF THE PLAN OF CARE INCLUDING THE PATIENT S ABILITY TO ACCESS COMMUNITY RESOURCES AND PSYCHOSOCIAL SUPPORT SERVICES.] Future Scheduled Test SKILLED NU RSE WILL MAINTAIN SITUATIONAL AWARENESS FOR SAFETY AND WILL NOTIFY CLINICAL GROUP THERAPIST AND PHYSICIAN/PROVIDER WITH ANY CHANGE IN CONDITION. [code = SKILLED NURSE WILL MAINTAIN SITUATIONAL AWARENESS FOR SAFETY AND WILL NOTIFY CLINICAL GROUP THERAPIST AND PHYSICIAN/PROVIDER WITH ANY CHANGE IN CONDITION.] Future Scheduled Test SKILLED NU RSE FOR MONITORING, O/A AND TEACHING RELATED TO MANAGEMENT OF ANTICOAGULATION THERAPY INCLUDING DIET, MEDICATION SIDE EFFECTS, SAFETY MEASURES TO PREVENT INJURY, AND S/S TO REPORT. PT/INR TO BE OBTAINED TWICE WEEKLY AND RESULTS REPORTED TO PHYSICIAN. [code = SKILLED NURSE FOR MONITORING, O/A AND TEACHING RELATED TO MANAGEMENT OF ANTICOAGULATION THERAPY INCLUDING DIET, MEDICATION SIDE EFFECTS, SAFETY MEASURES TO PREVENT INJURY, AND S/S TO REPORT. PT/INR TO BE OBTAINED TWICE WEEKLY AND RESULTS REPORTED TO PHYSICIAN.] Goal 2025-02-03 Patient Goal - P AIN MANAGEMENT AND BEING ABLE TO PLAY ON MY IPAD Goal 2025-04-04 Patient Goal - P AIN MANAGEMENT AND BEING ABLE TO PLAY ON MY IPAD Goal 2025-06-03 Patient Goal - P AIN MANAGEMENT AND BEING ABLE TO PLAY ON MY IPAD Goal Patient Goal - P AIN MANAGEMENT AND BEING ABLE TO PLAY ON MY IPAD Goal Provider Goal - A PLAN OF CARE WILL BE ESTABLISHED THAT MEETS PATIENT'S RETIREMENT NEEDS AND INCLUDES PATIENT GOAL FOR HOME HEALTH. Goal Provider Goal - PATIENT WILL COMPLY [...] THROUGHOUT CERTIFICATION PERIOD. Goal Provider Goal - CHANGES IN NEUROLOGIC STATUS WILL BE IDENTIFIED AND REPORTED TO THE PHYSICIAN FOR PROMPT INTERVENTION OF ASSOCIATED RISK. PATIENT/CAREGIVER WILL VERBALIZE/DEMONSTRATE APPROPRIATE SAFETY MEASURES TO PREVENT INJURY BY THE END OF THE CERTIFICATION PERIOD. Goal Provider Goal - PATIENT/CAREGIVER WILL VERBALIZE/DEMONSTRATE KNOWLEDGE AND MANAGEMENT OF COPD BY END OF EPISODE. Goal Provider Goal - PSYCHOSOCIAL NEEDS WILL [...] End Date/Time Encounter Type Admission Type Attending [facility] Care [facility] Care Department Encounter ID Discharge Date Discharge Status Discharge Condition Discharge Reason Percent Goals Met 2025-06-06 00:00:00 2025-08-04 00:00:00 Outpatient RECERTIFIC ATION ASHLEIGH SAHNI [facility] [id number] 0.00
--- OUTSIDE RECORDS SUMMARY | 2025-08-03 19:00 | XMS_ITS | Clinical Summary ---
Author Organization Unknown Care Team Providers Care Manager Gallery Name Role Phone JUANA MENDOZA, GARY Unavailable Unavailable KAITLYN JIMENEZ, ASHLEIGH Unavailable Unavailable Payers Payer Name Policy Type Policy Number Effective Date Expira tion Date [facility] ([facility] [place] - [facility] [id number] MEDICAID [facility] [id number] Problems Condition Name Condition Details Condition Category [...] FOLLOWING CEREBRAL INFARCTION Active 12-16 00:00: 00 INTERMEDIATE (CURRENT) USE OF ANTICOAGULAN TS Active 12-16 [...] 12-07 00:00: 00 06-05 23:59 :00 No [id number] Every 6 hours as needed for pain 2 tablet NEEDED 2 tablet NEEDED (route: oral) Med Classific ation: Analgesic , Anti-infl ammatory or Antipyret ic amitriptyli ne 10 mg tablet 12-07 00:00: 00 06-05 23:59 :00 No [id number] 10 mg BEDTIME 10 mg BEDTIME (route: oral) Med Classific ation: Central Nervous System Agents atorvastati n 80 mg tablet 12-07 00:00: 00 06-05 23:59 :00 No [id number] 80 mg BEDTIME 80 mg BEDTIME (route: oral) Med Classific ation: Cardiovas cular Therapy Agents docusate sodium 100 mg capsule 12-07 00:00: 00 06-05 23:59 :00 No [id number] 100 mg 2 TIMES DAILY 100 mg 2 TIMES DAILY (route: oral) Med Classific ation: Gastroint estinal Therapy Agents ferrous sulfate 325 mg (65 mg iron) tablet 12-07 00:00: 00 06-05 23:59 :00 No [id number] 325 mg DAILY 325 mg DAILY (route: oral) Med Classific ation: Electroly te Balance-N utritiona l Products Keppra 500 mg tablet 12-07 00:00: 06-05 23:59 :00 No [id number] 500 mg 2 TIMES DAILY 500 mg 2 TIMES DAILY (route: oral) Med Classific ation: Central Nervous System Agents multivitami n with minerals tablet 12-07 00:00: 00 06-05 23:59 :00 No [id number] Per instruc tions DAILY Per instructio ns DAILY (route: oral) Med Classific ation: Electroly te Balance-N utritiona l Products pantoprazol e 40 mg tablet,mary ellen yed release 12-07 00:00: 00 06-05 23:59 :00 No [id number] 40 mg DAILY 40 mg DAILY (route: oral) Med Classific ation: Gastroint estinal Therapy Agents pramipexole 0.125 mg tablet 12-07 00:00: 00 06-05 23:59 :00 No [id number] 0.125 mg NEEDED 0.125 mg NEEDED (route: oral) Med Classific ation: Central Nervous System Agents ropinirole 1 mg tablet 12-07 00:00: 00 06-05 23:59 :00 No [id number] 1 mg BEDTIME 1 mg BEDTIME (route: oral) Med Classific ation: Central Nervous System Agents sertraline 25 mg tablet 12-07 00:00: 00 06-05 23:59 :00 No [id number] 25 mg DAILY 25 mg DAILY (route: oral) Med Classific ation: Central Nervous System Agents Symbicort 160 mcg-4.5 mcg/actuati on HFA aerosol inhaler 12-07 00:00: 00 06-05 23:59 :00 No [id number] Per instruc tions 2 TIMES DAILY Per instructio ns 2 TIMES DAILY (route: inhalation ) Med Classific ation: Respirato ry Therapy Agents warfarin 2 mg tablet 12-07 00:00: 00 06-05 23:59 :00 No [id number] 2 mg DAILY 2 mg DAILY (route: oral) Med Classific ation: Hematolog ical Agents acetaminoph en 325 mg tablet 2024-08 00:00: 00 Yes [id number] 2 tablet NEEDED 2 tablet NEEDED (route: oral) Med Classific ation: Analgesic , Anti-infl ammatory or Antipyret ic amitriptyli ne 10 mg tablet 2024-08 00:00: 00 Yes [id number] 10 mg BEDTIME 10 mg BEDTIME (route: oral) Med Classific ation: Central Nervous System Agents atorvastati n 80 mg tablet 2024-08 00:00: 00 Yes [id number] 80 mg BEDTIME 80 mg BEDTIME (route: oral) Med Classific ation: Cardiovas cular Therapy Agents docusate sodium 100 mg capsule 2024-08 00:00: 00 Yes [id number] 100 mg 2 TIMES DAILY 100 mg 2 TIMES DAILY (route: oral) Med Classific ation: Gastroint estinal Therapy Agents ferrous sulfate 325 mg (65 mg iron) tablet 2024-08 00:00: 00 Yes [id number] 325 mg EVERY AM 325 mg EVERY AM (route: oral) Med Classific ation: Electroly te Balance-N utritiona l Products Keppra 500 mg tablet 2024-08 00:00: 00 Yes [id number] 500 mg 2 TIMES DAILY 500 mg 2 TIMES DAILY (route: oral) Med Classific ation: Central Nervous System Agents multivitami n with minerals tablet 2024-08 00:00: 00 Yes [id number] Per instruc tions EVERY AM Per instructio ns EVERY AM (route: oral) Med Classific ation: Electroly te Balance-N utritiona l Products pantoprazol e 40 mg tablet,mary ellen yed release 2024-08 00:00: 00 Yes [id number] 40 mg EVERY AM 40 mg EVERY AM (route: oral) Med Classific ation: Gastroint estinal Therapy Agents pramipexole 0.125 mg tablet 2024-08 00:00: 00 Yes [id number] 0.125 mg NEEDED 0.125 mg NEEDED (route: oral) Med Classific ation: Central Nervous System Agents ropinirole 1 mg tablet 2024-08 00:00: 00 Yes [id number] 1 mg BEDTIME 1 mg BEDTIME (route: oral) Med Classific ation: Central Nervous System Agents sertraline 25 mg tablet 2024-08 00:00: 00 Yes [id number] 25 mg EVERY AM 25 mg EVERY AM (route: oral) Med Classific ation: Central Nervous System Agents Symbicort 160 mcg-4.5 mcg/actuati on HFA aerosol inhaler 2024-08 00:00: 00 Yes [id number] Per instruc tions 2 TIMES DAILY Per instructio ns 2 TIMES DAILY (route: inhalation ) Med Classific ation: Respirato ry Therapy Agents warfarin 2 mg tablet 2024-08 00:00: 00 Yes [id number] 2 mg EVERY AM 2 mg EVER Y AM (route: oral) Med Classific ation: Hematolog ical Agents Vital Signs Vital Name Observation Time Observation Value Commen ts Temperature 2025-07-11 11:11:00.000 97.2 [degF] Temperature 2025-07-01 12:05:00.000 97.2 [degF] Temperature 2025-06-28 12:55:00.000 97.5 [degF] Temperature 2025-06-24 11:45:00.000 97.3 [degF] Temperature 2025-06-20 15:55:00.000 97.1 [degF] Temperature 2025-06-17 11:25:00.000 97.6 [degF] Temperature 2025-06-13 15:50:00.000 96.8 [degF] Temperature 2025-06-10 11:22:00.000 96.8 [degF] Temperature 2025-06-06 14:10:00.000 97.2 [degF] Pulse 2025-07-11 11:11:00.000 84 /min Pulse 2025-07-08 11:20:00.000 82 /min Pulse 2025-07-03 14:21:00.000 73 /min Pulse 2025-07-01 12:05:00.000 80 /min Pulse 2025-06-28 12:55:00.000 76 /min Pulse 2025-06-24 11:45:00.000 80 /min Pulse 2025-06-20 15:55:00.000 88 /min Pulse 2025-06-17 11:25:00.000 68 /min Pulse 2025-06-13 15:50:00.000 72 /min Pulse 2025-06-10 11:22:00.000 74 /min Pulse 2025-06-06 14:10:00.000 67 /min O2 Saturation (%) 2025-07-11 11:25:00.000 96 % [...] Saturation (%) 2025-06-06 14:10:00.000 96 % Respirations 2025-07-11 11:11:00.000 16 /min Respirations 2025-07-08 [...] 2025-06-10 11:22:00.000 68 [lb_av] Systolic Blood Pressure 2025-07-11 11:11:00.000 132 mm [...] 14:10:00.000 133 mm [Hg] Diastolic Blood Pressure 2025-07-11 11:11:00.000 [...] AWARENESS FOR SAFETY AND WILL NOTIFY CLINICAL PROBE OPERATOR AND PHYSICIAN/PROVIDER WITH ANY CHANGE IN CONDITION. [code = SKILLED NURSE WILL MAINTAIN SITUATIONAL AWARENESS FOR SAFETY AND WILL NOTIFY CLINICAL PROBE OPERATOR AND PHYSICIAN/PROVIDER WITH ANY CHANGE IN CONDITION.] [...] WEEKLY AND RESULTS REPORTED TO PHYSICIAN.] Goal Patient Goal - P AIN MANAGEMENT [...] CARE WILL BE ESTABLISHED THAT MEETS PATIENT'S CUSTODIAL NEEDS AND INCLUDES PATIENT GOAL FOR HOME [...] 2025-08-04 00:00:00 Outpatient RECERTIFIC ATION ASHLEIGH SAHNI [facility] [id number] 0.00
== END 2025-07-23 23:59 | disposition home or self-care (01) ==
LOC: HO.HOSX 09:00
PROVIDERS: Visit Provider Orthopaedic Surgery
DX: M79.641 Pain in right hand (principal)
CPT/HCPCS: 73130

== ENCOUNTER → 2025-07-23 09:01 | Outpatient (BNV) | payer OTHER, SELFPAY | PROVIDERS: Visit Provider Radiology Diagnostic Radiology | DX: M79.641 Pain in right hand (principal) | CPT/HCPCS: 73130 ==